=== PATIENT | male | born 1960 | race Caucasian/White ===

== ENCOUNTER 2018-11-11 08:24 | Emergency (ER) | payer BC, SELFPAY ==
--- NOTE | 2018-11-11 10:21 | EDPHYS ---
Physician Documentation [facility] Name: Grupo Mcdonald Jr Age: 58 yrs Sex: Male : 1960 Arrival Date: 11/11/2018 Time: 08:28 Bed 14 Private MD: Bravo Delgado H ED Physician Favian York HPI: 11/11 08:45 This 58 yrs old Male presents to ER via Ambulatory with complaints of ps1 Shoulder Pain. 08:45 patient reportedly fell a week ago and now having pain at the medial aspect of the ps1 right clavicle. Pain rated as moderate. NO remitting factors, none tried. Worse with movement and palpation. No shortness of breath. . Historical: - Allergies: 08:41 Codeine; iw 08:41 Vicodin; iw - Home Meds: 08:41 lisinopril 20 mg Oral tab 1 tab once daily [Active]; losartan 100 mg oral tab once iw daily [Active]; aspirin 325 mg Oral tab 1 tab once daily [Active]; - PMHx: 08:41 Hypertension; iw - PSHx: 08:41 Appendectomy; left knee; iw - Immunization history:: Adult Immunizations not up to date. - Social history:: Smoking status: Patient/guardian denies using tobacco. - Ebola Screening: : Patient negative for fever greater than or equal to 101.5 degrees Fahrenheit, and additional compatible Ebola Virus Disease symptoms Patient denies exposure to infectious person Patient denies travel to an Ebola-affected area in the 21 days before illness onset No symptoms or risks identified at this time. ROS: 08:45 Constitutional: Negative for fever, chills, and weight loss, Eyes: Negative for injury, ps1 pain, redness, and discharge, ENT: Negative for injury, pain, and discharge, Cardiovascular: Negative for chest pain, palpitations, and edema, Respiratory: Negative for shortness of breath, cough, wheezing, and pleuritic chest pain, Abdomen/GI: Negative for abdominal pain, nausea, vomiting, diarrhea, and constipation, Back: Negative for injury and pain, Skin: Negative for injury, rash, and discoloration, Neuro: Negative for headache, weakness, numbness, tingling, and seizure. 08:45 MS/extremity: Positive for decreased range of motion, tenderness, of the right clavicle. Exam: 08:45 Constitutional: This is a well developed, well nourished patient who is awake, alert, ps1 and in no acute distress. Head/Face: Normocephalic, atraumatic. ENT: Nares patent. No nasal discharge, no septal abnormalities noted. Tympanic membranes are normal and external auditory canals are clear. Oropharynx with no redness, swelling, or masses, exudates, or evidence of obstruction, uvula midline. Mucous membranes moist. Cardiovascular: Regular rate and rhythm. No gallops, murmurs, or rubs. Normal PMI, no JVD. No pulse deficits. Respiratory: Lungs have equal breath sounds bilaterally, clear to auscultation and percussion. No rales, rhonchi or wheezes noted. No increased work of breathing, no retractions or nasal flaring. Abdomen/GI: Soft, non-tender, with normal bowel sounds. No distension or tympany. No guarding or rebound. No evidence of tenderness throughout. Skin: Warm, dry with normal turgor. Normal color with no rashes, no lesions, and no evidence of cellulitis. MS/ Extremity: Pulses equal, no cyanosis. Neurovascular intact. Full, normal range of motion. Neuro: Awake and alert, GCS 15, oriented to person, place, time, and situation. Cranial nerves II-XII grossly intact. Sensory grossly intact. 08:45 Chest/axilla: Inspection: normal, Palpation: tenderness, that is moderate, of the right supraclavicular area and right clavicle. Vital Signs: 08:41 BP 197 / 95; Pulse 80; Resp 18 S; Temp 97.6(TE); Pulse Ox 97% on R/A; Weight 190.51 kg; iw Height 6 ft. 1 in. (185.42 cm); Pain 5/10; 08:41 Body Mass Index 55.41 (190.51 kg, 185.42 cm) iw MDM: 09:10 Patient medically screened. ps1 10:22 Data reviewed: vital signs, nurses notes, radiologic studies, plain films, and as a ps1 result, I will discharge patient. 11/11 08:38 Order name: CXR XRAY ps1 11/11 08:38 Order name: Clavicle Right XRAY ps1 Administered Medications: No medications were administered Disposition: 11/11/18 10:20 Discharged to Home. Impression: Right Clavicle Pain. - Condition is Stable. - Discharge Instructions: Shoulder Pain, [id number]. - Prescriptions for Anaprox DS 550 mg Oral Tablet - take 1 tablet by ORAL route every 12 hours As needed; 20 tablet. Robaxin 500 mg Oral Tablet - take 2 tablet by ORAL route every 6 hours As needed; 40 tablet. Medrol (Alex) 4 mg Oral Tablets, Dose Pack - take 1 tablet by ORAL route as directed - follow package instructions; 1 packet. - Medication Reconciliation Form, Thank You Letter, Antibiotic Education, Prescription Opioid Use form. - Follow up: Bravo Delgado DO; When: As needed; Reason: Further diagnostic work-up, Recheck today's complaints, Continuance of care. Follow up: Emergency Department; When: As needed; Reason: Worsening of condition. - Problem is new. - Symptoms are unchanged. Signatures: Dispatcher [employer] EDGhislaine Harrington RN RN iw Carson Talbot RN RN jl7 Favian York MD MD ps1 Corrections: (The following items were deleted from the chart) 10:33 10:20 11/11/2018 10:20 Discharged to Home. Impression: Right Clavicle Pain. Condition jl7 is Stable. Forms are Medication Reconciliation Form, Thank You Letter, Antibiotic Education, Prescription Opioid Use. Follow up: Bravo Delgado; When: As needed; Reason: Further diagnostic work-up, Recheck today's complaints, Continuance of care. Follow up: Emergency Department; When: As needed; Reason: Worsening of condition. Problem is new. Symptoms are unchanged. ps1
--- NOTE | 2018-11-11 10:21 | ER ---
Nurse's Notes [facility] Name: Grupo Mcdonald Jr Age: 58 yrs Sex: Male : 1960 Arrival Date: 11/11/2018 Time: 08:28 Bed 14 Private MD: Bravo Delgado H Diagnosis: Right Clavicle Pain Presentation: 11/11 08:36 Presenting complaint: Patient states: fell about a week ago, caught himself on the iw truck, pain to right collar bone since then, hears a clicking sound and fells like the bone is protruding. Transition of care: patient was not received from another setting of care. Onset of symptoms was November 04, 2018. Risk Assessment: Do you want to hurt yourself or someone else? Patient reports no desire to harm self or others. Initial Sepsis Screen: Does the patient meet any 2 criteria? No. Patient's initial sepsis screen is negative. Does the patient have a suspected source of infection? No. Patient's initial sepsis screen is negative. Care prior to arrival: None. 08:36 Method Of Arrival: Ambulatory iw 08:36 Acuity: MARTY 4 iw Historical: - Allergies: 08:41 Codeine; iw 08:41 Vicodin; iw - Home Meds: 08:41 lisinopril 20 mg Oral tab 1 tab once daily [Active]; losartan 100 mg oral tab once iw daily [Active]; aspirin 325 mg Oral tab 1 tab once daily [Active]; - PMHx: 08:41 Hypertension; iw - PSHx: 08:41 Appendectomy; left knee; iw - Immunization history:: Adult Immunizations not up to date. - Social history:: Smoking status: Patient/guardian denies using tobacco. - Ebola Screening: : Patient negative for fever greater than or equal to 101.5 degrees Fahrenheit, and additional compatible Ebola Virus Disease symptoms Patient denies exposure to infectious person Patient denies travel to an Ebola-affected area in the 21 days before illness onset No symptoms or risks identified at this time. Screenin:42 Abuse screen: Denies threats or abuse. Denies injuries from another. Nutritional jl7 screening: No deficits noted. Tuberculosis screening: No symptoms or risk factors identified. Fall Risk None identified. Assessment: 08:42 General: Appears in no apparent distress. uncomfortable, Behavior is calm, cooperative, jl7 appropriate for age. Pain: Complains of pain in right clavicle Pain currently is 4 out of 10 on a pain scale. Is continuous, Aggravated by increased activity. Neuro: Level of Consciousness is awake, alert, obeys commands, Oriented to person, place, time, situation. Cardiovascular: Patient's skin is warm and dry. Respiratory: Airway is patent Respiratory effort is even, unlabored, Respiratory pattern is regular, symmetrical. Derm: Skin is pink, warm \T\ dry. Musculoskeletal: Range of motion: intact in all extremities, Swelling present in right clavicle. 09:30 Reassessment: Patient appears in no apparent distress at this time. No changes from jl7 previously documented assessment. Patient and/or family updated on plan of care and expected duration. Pain level reassessed. Patient is alert, oriented x 3, equal unlabored respirations, skin warm/dry/pink. Vital Signs: 08:41 BP 197 / 95; Pulse 80; Resp 18 S; Temp 97.6(TE); Pulse Ox 97% on R/A; Weight 190.51 kg; iw Height 6 ft. 1 in. (185.42 cm); Pain 5/10; 08:41 Body Mass Index 55.41 (190.51 kg, 185.42 cm) iw ED Course: 08:28 Patient arrived in ED. mr 08:28 Bravo Delgado DO is Private Physician. mr 08:29 Favian York MD is Attending Physician. ps1 08:31 Carson Talbot, DIANA is Primary Nurse. jl7 08:37 Triage completed. iw 08:41 Arm band placed on. iw 08:42 Patient has correct armband on for positive identification. Bed in low position. Call jl7 light in reach. Side rails up X2. Pulse ox on. NIBP on. 09:30 No provider procedures requiring assistance completed. Patient did not have IV access jl7 during this emergency room visit. 09:36 CXR XRAY In Process Unspecified. EDMS 09:36 Clavicle Right XRAY In Process Unspecified. EDMS 09:37 X-ray completed. Patient tolerated procedure well. sg4 10:19 Bravo Delgado DO is Referral Physician. ps1 Administered Medications: No medications were administered Outcome: 09:30 Discharged to home ambulatory. jl7 09:30 Condition: stable 09:30 Discharge instructions given to patient, Instructed on discharge instructions, follow up and referral plans. medication usage, Demonstrated understanding of instructions, follow-up care, medications, Prescriptions given X 3. 10:20 Discharge ordered by . ps1 10:33 Patient left the ED. jl7 Signatures: Dispatcher [employer] ED LeblancTri Irene, RN RN iw Carson Talbot RN RN jl7 Favian York MD MD ps1 Garcia, Susana sg4
--- NOTE | 2018-11-11 12:11 | RAD REPORT ---
EXAM DESCRIPTION: RAD - Chest Single View - 11/11/2018 9:36 am CLINICAL HISTORY: PAIN Chest pain. COMPARISON: Chest Pa And Lat (2 Views) dated 10/24/2017; Chest Single View dated 10/23/2017; Chest Sin gle View dated 10/15/2017 FINDINGS: Portable technique limits examination quality. The lungs are grossly clear. The heart is upper limit normal size. No displaced fractures. IMPRESSION: No acute intrathoracic process suspected.
--- NOTE | 2018-11-11 12:12 | RAD REPORT ---
EXAM DESCRIPTION: RAD - Clavicle Right - 11/11/2018 9:36 am CLINICAL HISTORY: PAIN History of fall, pain COMPARISON: No comparisons FINDINGS: Severe right glenohumeral arthritic changes are present. Subtle irregularity of the very d istal aspect of the right clavicle could indicate a nondisplaced fracture. Correlation with point ten derness at the region of the AC joint is suggested.
[2018-11-11 12:31] VITALS: BP 197/95; TEMP 97.6; O2SAT 97
== END 2018-11-11 10:33 | disposition home or self-care (01) ==
LOC: ER 08:24
DX: M89.8X8 Other specified disorders of bone, other site (principal); W19.XXXA Unspecified fall, initial encounter; I10 Essential (primary) hypertension; Z79.899 Other long term (current) drug therapy; Z79.82 Long term (current) use of aspirin
CPT/HCPCS: 71045; 99283

== ENCOUNTER 2021-11-13 06:53 | Inpatient (IN) | payer MEDICARE, OTHER, SELFPAY ==
--- OUTSIDE RECORDS SUMMARY | 2021-11-13 06:56 | XMS REPORT | Continuity of Care Document ---
:1960 Author Organization [facility] t Address [address] [place] [address] Care Team Providers Name Role Phone Aleisha Talbot Primary Care Physician Bhanu Abel MD Attending Clinician BHANU ABEL Attending Clinician Unavailable Pob, Lab Main Attending Clinician Unavailable Doctor Unassigned, Name Attending Clinician Unavailable Joseline Stacy MD Attending Clinician Joseline STACY Attending Clinician Unavailable Only, Test Attending Clinician Unavailable Bhanu Abel MD Admitting Clinician BHANU ABEL Admitting Clinician Unavailable Joseline Stacy MD Admitting Clinician Joseline STACY Admitting Clinician Unavailable Payers Payer Name Policy Type Policy Number Effective Date Expiration Date S ource Problems This patient has no known problems. Allergies, Adverse Reactions, Alerts Allergy Allergy Status Severity Reaction(s) Onset Inactive Treating Comm ents Source Name Type Date Date Clinician Hydrocod Propensi Active Unknown - Shakes Uni vers one-Acet ty to See comments 08-16 it y of aminophe adverse 00:00: [place] n reaction 00 Medical s Branch HYDROCOD DRUG Active Unknown-Cmnt Un [place] ONE-ACET 9-27 ity of AMINOPHE 00:00: [place] N 00 Medical Branch Codeine Propensi Active Nausea 2014-11 Univers ty to and/or 0-20 ity of adverse Vomiting 00:00: [place] reaction 00 Medical s to Branch drug CODEINE DRUG Active Med N/V 2014-11 Univers INGREDI 0-20 ity of 00:00: [place] [id number] Medical Branch Social History Social Habit Start Date Stop Date Quantity Comments Source Exposure to Not sure University SARS-CoV-2 [facility] (event) Branch Alcohol intake 2021-11-02 2021-11-02 Current [facility] 00:00:00 00:00:00 non-drinker of [facility] alcohol [place] (finding) Tobacco use and 2015-09-08 2015-09-08 Never used Universit y of exposure 00:00:00 00:00:00 [facility] Sex Assigned At [birth year] Universit y of 00:00:00 00:00:00 [facility] Smoking Status Start Date Stop Date Source Never smoker [facility] Medications Ordered Filled Start Stop Current Ordering Indication Dosage Frequency Signature Comments Components Source Medication Medication Date Date Medication? Clinician (SIG) Name Name water for 2020-11 Yes PRN, Univers irrigation 2-16 Starting ity o f irrigation 15:49: on [facility] solution 00 11/04/21 Medical at 09, [place] Until Discontinu ed, Routine, Intra-op neomycin-po 2020-11 Yes PRN, Univer s lymyxin-dex 2-16 Starting ity of amethasone 15:49: on [facility] (MAXITROL) 00 11/04/21 Medic al 3.[address] [place] [address] mg/g-10,000 Until unit/g-0.1 Discontinu % ed, ophthalmic Routine, ointment Intra-op gentamicin 2020-11 Yes PRN, Univers injection 2-16 Starting ity of 15:49: on [facility] 00 11/04/21 Medical at 09, [place] Until Discontinu ed, AGUILA, Intra-op water for 2020-11- No PRN, Univers irrigation 2-16 -16 Starting ity of irrigation 15:49: 19:36 [facility] :50 11/04/21 Medical at 09, [place] Until Mariajose 11/04/21 at 1336, Routine, Intra-op neomycin-po 2020-11- No PRN, Unive rs lymyxin-dex 2-16 -16 Starting ity of amethasone 15:49: 19:36 [place] (MAXITROL) 00 :50 11/04/21 Medic al 3.5 at 0949, Branch mg/g-10,000 Until [place] unit/g-0.1 11/04/21 % at 1336, ophthalmic Routine, ointment Intra-op gentamicin 2020-11- No PRN, Univer s injection 01-05 Starting ity o f 15:49: 19:36 on Mariajose [place] 00 :50 11/04/21 Medical at 0949, Branch Until [place] 11/04/21 at 1336, AGUILA, Intra-op DUOVISC 2020-11 Yes PRN, Univers (DUOVISC 01-05 Starting ity of VISCO 15:48: on [facility] ELASTIC) 3 00 11/04/21 Medic al %-4 %(0.5 at 0948, Branch mL) 1 % Until (0.55 mL) Discontinu intraocular ed, injection Routine, Intra-op dexamethaso 2020-11 Yes PRN, [facility] ne 01-05 Starting ity of (DECADRON 15:48: on [facility] PHOSPHATE) 00 11/04/21 Medic al injection at 0948, Branch Until Discontinu ed, Routine, Intra-op NaCl 0.9% 2020-11 Yes PRN, Univers (NS) 01-05 Starting ity of injection 15:48: on Mariajose [place] 00 11/04/21 Medical at 0948, Branch Until Discontinu ed, Routine, Intra-op DUOVISC 2020-11- No PRN, Univers (DUOVISC 01-05 Starting ity of VISCO 15:48: 19:36 on [facility] ELASTIC) 3 00 :50 11/04/21 Medic al %-4 %(0.5 at 0948, Branch mL) 1 % Until Mariajose (0.55 mL) 11/04/21 intraocular at 1336, injection Routine, Intra-op dexamethaso 2020-11- No PRN, [facility] ne 01-05 Starting ity of (DECADRON 15:48: 19:36 on [facility] PHOSPHATE) 00 :50 11/04/21 Medic al injection at 0948, Branch Until [place] 11/04/21 at 1336, Routine, Intra-op NaCl 0.9% 2020-11- No PRN, Univers (NS) 211-04 Starting ity of injection 15:48: 19:36 on Mariajose [place] 00 :50 11/04/21 Medical at 0948, Branch Until [facility] 11/04/21 at 1336, Routine, Intra-op ceFAZolin 2020-11 Yes PRN, Univers (ANCEF) 2-16 Starting ity of injection 15:47: on Mariajose [place] 00 11/04/21 Medical at 0947, Branch Until Discontinu ed, AGUILA, Intra-op tetracaine 2020-11 Yes PRN, Univers (PONTOCAINE 2-16 Starting ity of ) 0.5 % 15:47: on Mariajose [place] ophthalmic 00 11/04/21 Medic al drops at 0947, Branch Until Discontinu ed, Routine, Intra-op ceFAZolin 2020-11- No PRN, Univers (ANCEF) 01-05 Starting ity of injection 15:47: 19:36 on [facility] 00 :50 11/04/21 Medical at 0947, Branch Until [facility] 11/04/21 at 1336, AGUILA, Intra-op tetracaine 2020-11- No PRN, Univer s (PONTOCAINE 01-05 Starting ity of ) 0.5 % 15:47: 19:36 on [facility] ophthalmic 00 :50 11/04/21 Medic al drops at 0947, Branch Until [place] 11/04/21 at 1336, Routine, Intra-op eye block 2020-11 Yes PRN, Univers syringe 11 01-05 Starting ity o f mL 15:46: on Maria[place]ose [place] 00 11/04/21 Medical at 0946, Branch Until Discontinu ed, Intra-op eye block 2020-11- No PRN, Univers syringe 11 -11-04 Starting ity of mL 15:46: 19:36 on [facility] 00 :50 11/04/21 Medical at 0946, Branch Until [facility] 11/04/21 at 1336, Intra-op EPINEPHrine 2020-11 Yes PRN, Univer s (PF) 2-16 Starting ity of 1:1,000 (1 15:45: on Mariajose [place] mg/mL) 00 11/04/21 Medical (ADRENALIN at 0945, Branc h (PF)) Until injection Discontinu ed, Routine, Intra-op EPINEPHrine 2020-11- No PRN, Unive rs (PF) 01-05 Starting ity of 1:1,000 (1 15:45: 19:36 on [place] mg/mL) 00 :50 11/04/21 Medical (ADRENALIN at 0945, Branc h (PF)) Until [place] injection 11/04/21 at 1336, Routine, Intra-op balanced 2020-11 Yes PRN, Univers salt soln 01-05 Starting ity of no.2 irrig. 15:44: on [place] (BSS) 00 11/04/21 Medical ophthalmic at 0944, Branc h solution Until Discontinu ed, Routine, Intra-op balanced 2020-11- No PRN, Univers salt soln 01-05 Starting ity o f no.2 irrig. 15:44: 19:36 on Mariajose [place] (BSS) 00 :50 11/04/21 Medical ophthalmic at 0944, Branc h solution Until [place] 11/04/21 at 1336, Routine, Intra-op cyclopent 2020-11- No .5mL 0.5 mL, Univ ers 1%-tropic 01-05 Right Eye, ity of 1%-phenyl 15:00: 15:01 ONCE, 1 [place] 2.5%-ketor 00 :00 dose, On Medic al 0.5% [place] Branch (MYDRIATIC 11/04/21 #5) at 0900, ophthalmic Routine, solution DSU Pre-op syringe 0.5 mL lactated 2020-11- No 1000mL at 42 Unive rs ringers IV 01-05 mL/hr, ity of infusion 15:00: 15:01 1,000 mL, [place] 1,000 mL 00 :00 IV Medical Infusion, Branch ONCE, 1 dose, On Mariajose 11/04/21 at 0900, Routine, DSU Pre-op cyclopent 2020-11- No .5mL 0.5 mL, Univ ers 1%-tropic 2-16 12-16 Right Eye, ity of 1%-phenyl 15:00: 15:01 ONCE, 1 [place] 2.5%-ketor 00 :00 dose, On Medic al 0.5% [place] Branch (MYDRIATIC 11/04/21 #5) at 0900, ophthalmic Routine, solution DSU Pre-op syringe 0.5 mL lactated 2020-11- No 1000mL at 42 Unive rs ringers IV 2-16 12-16 mL/hr, ity of infusion 15:00: 15:01 1,000 mL, [place] 1,000 mL 00 :00 IV Medical Infusion, Branch ONCE, 1 dose, On Mariajose 11/04/21 at 0900, Routine, DSU Pre-op aspirin 81 2020-11 Yes 81mg Take 81 mg U nivers mg EC 2-16 by mouth ity of tablet 11:31: daily. [address] lisinopril 2020-11 Yes 20mg Take 20 mg U nivers (PRINIVIL,Z 2-16 by mouth 2 it y of ESTRIL) 20 11:31: (two) [place] mg tablet 49 times Medical daily. Branch verapamil 2020-11 Yes 120mg Take 120 Uni vers (ISOPTIN) 2-16 mg by ity of 120 mg 11:31: mouth 2 [place] tablet 49 (two) Medical times [place] daily. ALBUTEROL 2020-11 Yes Inhale. Unive rs INHALE 2-16 ity of 11:31: [address] aspirin 81 2020-11 Yes 81mg Take 81 mg U nivers mg EC 2-16 by mouth ity of tablet 11:31: daily. [address] lisinopril 2020-11 Yes 20mg Take 20 mg U nivers (PRINIVIL,Z 2-16 by mouth 2 it y of ESTRIL) 20 11:31: (two) [place] mg tablet 49 times Medical daily. Branch verapamil 2020-11 Yes 120mg Take 120 Uni vers (ISOPTIN) 2-16 mg by ity of 120 mg 11:31: mouth 2 [place] tablet 49 (two) Medical times [place] daily. ALBUTEROL 2020-11 Yes Inhale. Unive rs INHALE 2-16 ity of 11:31: [address] simethicone Yes PRN, Univer s (GAS RELIEF 9- Starting ity of (SIMETHICON 14:10: on Mon [place] E)) 40 00 08/18/21 at Medical mg/0.6 mL 0910, Branch drops Until Discontinu ed, Routine, Intra-op simethicone 2020- No [facility], [facility] ([facility] 08-18 Starting ity of (SIMETHICON 14:10: 17:12 on Mon [place] E)) 40 00 :34 08/18/21 at Medical mg/0.6 mL 0910, Branch drops Until Mon08/18/21 at 1212, Routine, Intra-op lactated 2020- No 1000mL at 42 [facility] rs ringers IV 08-18 mL/hr, ity of infusion 13:15: 13:02 1,000 mL, [place] 1,000 mL 00 :00 IV Medical Infusion, Branch ONCE, 1 dose, On Mon08/18/21 at 0815, Routine, DSU Pre-op lactated 2020- No 1000mL at 42 [facility] rs ringers IV 08-18 mL/hr, ity of infusion 13:15: 13:02 1,000 mL, [place] 1,000 mL 00 :00 IV Medical Infusion, Branch ONCE, 1 dose, On Mon08/18/21 at 0815, Routine, DSU Pre-op aspirin 81 0 Yes 81mg Take 81 mg U nivers mg EC 08-18 by mouth ity of tablet 10:12: daily. [address] lisinopril Yes 20mg Take 20 mg U nivers (PRINIVIL,Z 08-18 by mouth 2 it y of ESTRIL) 20 10:12: (two) [place] mg tablet 34 times Medical daily. Branch verapamil 0 Yes 120mg Take 120 Uni vers (ISOPTIN) 9-29 mg by ity of 120 mg 10:12: mouth 2 [place] tablet 34 (two) Medical times Branch daily. aspirin 81 0 Yes 81mg Take 81 mg U nivers mg EC - by mouth ity of tablet 10:12: daily. [address] lisinopril Yes 20mg Take 20 mg U nivers (PRINIVIL,Z - by mouth 2 it y of ESTRIL) 20 10:12: (two) [place] mg tablet 34 times Medical daily. Branch verapamil Yes 120mg Take 120 Uni vers (ISOPTIN) 9-29 mg by ity of 120 mg 10:12: mouth 2 [place] tablet 34 (two) Medical times Branch daily. aspirin 81 Yes 81mg Take 81 mg U nivers mg EC 9-29 by mouth ity of tablet 10:12: daily. [address] lisinopril Yes 20mg Take 20 mg U nivers (PRINIVIL,Z 9-29 by mouth 2 it y of ESTRIL) 20 10:12: (two) [place] mg tablet 34 times Medical daily. Branch verapamil Yes 120mg Take 120 Uni vers (ISOPTIN) 9-29 mg by ity of 120 mg 10:12: mouth 2 [place] tablet 34 (two) Medical times Branch daily. aspirin 81 Yes 81mg Take 81 mg U nivers mg EC 9-29 by mouth ity of tablet 10:12: daily. [address] lisinopril Yes 20mg Take 20 mg U nivers (PRINIVIL,Z 9-29 by mouth 2 it y of ESTRIL) 20 10:12: (two) [place] mg tablet 34 times Medical daily. Branch verapamil Yes 120mg Take 120 Uni vers (ISOPTIN) 9-29 mg by ity of 120 mg 10:12: mouth 2 [place] tablet 34 (two) Medical times Branch daily. aspirin 81 2014-11 Yes 81mg Take 81 mg U nivers mg EC 0-22 by mouth ity of tablet 10:44: daily. [address] lisinopril 2014-11 Yes 20mg Take 20 mg U nivers (PRINIVIL,Z 0-22 by mouth 2 it y of ESTRIL) 20 10:44: (two) [place] mg tablet 23 times Medical daily. Branch verapamil 2014-11 Yes 120mg Take 120 Uni vers (ISOPTIN) 0-22 mg by ity of 120 mg 10:44: mouth 2 [place] tablet 23 (two) Medical times Branch daily. aspirin 81 2014-11 Yes 81mg Take 81 mg U nivers mg EC 0-22 by mouth ity of tablet 10:44: daily. [address] lisinopril 2014-11 Yes 20mg Take 20 mg U nivers (PRINIVIL,Z 0-22 by mouth 2 it y of ESTRIL) 20 10:44: (two) [place] mg tablet 23 times Medical daily. Branch verapamil 2014-11 Yes 120mg Take 120 Uni vers (ISOPTIN) 0-22 mg by ity of 120 mg 10:44: mouth 2 [place] tablet 23 (two) Medical times [place] daily. Vital Signs Vital Name Observation Time Observation Value Comments Source Systolic blood 2021-11-04 16:37:00 146 mm[Hg] Univer sity of pressure [facility] Diastolic blood 2021-11-04 16:37:00 69 mm[Hg] Unive rsity of [facility] Oxygen saturation in 2021-11-04 16:37:00 99 /min University of Arterial blood by [facility] Pulse oximetry Branch Heart rate 2021-11-04 16:30:00 71 /min [facility] 2021-11-04 16:30:00 24 /min [facility] Body temperature 2021-11-04 16:11:00 36.89 [place] Body height 2021-10-26 14:41:00 182.9 cm Universi [facility] Body weight 2021-10-26 14:41:00 204.1 [facility] BMI 2021-10-26 14:41:00 61.01 kg/m2 [facility] Systolic blood 2021-11-04 16:37:00 146 mm[Hg] Univer sity of [facility] Diastolic blood 2021-11-04 16:37:00 69 mm[Hg] Unive rsity of [facility] Oxygen saturation in 2021-11-04 16:37:00 99 /min University of Arterial blood by [facility] Pulse oximetry Branch Heart rate 2021-11-04 16:30:00 71 /min Universi ty [facility] Respiratory rate 2021-11-04 16:30:00 24 /min [facility] Body temperature 2021-11-04 16:11:00 36.89 [facility] Body height 2021-10-26 14:41:00 182.9 cm Universi [facility] Body weight 2021-10-26 14:41:00 204.1 kg Universi ty of [place] [facility] BMI 2021-10-26 14:41:00 61.01 kg/m2 Universi ty of [place] [facility] Systolic blood 2021-08-18 15:00:00 158 mm[Hg] Univer sity of pressure [place] [facility] Diastolic blood 2021-08-18 15:00:00 90 mm[Hg] Unive rsity of pressure [place] [facility] Heart rate 2021-08-18 15:00:00 75 /min Universi ty of [place] [facility] Respiratory rate 2021-08-18 15:00:00 20 /min Univ ersity of [place] [facility] Oxygen saturation in 2021-08-18 15:00:00 100 /min University of Arterial blood by [place] [employer] Pulse oximetry Branch Body temperature 2021-08-18 14:35:00 37.33 [place] Univ ersity of [place] [facility] Body height 2021-08-16 14:15:00 182.9 cm Universi ty of [place] [facility] Body weight 2021-08-16 14:15:00 204.119 kg Universi ty of [place] [facility] BMI 2021-08-16 14:15:00 61.03 kg/m2 Universi ty of [place] [facility] Systolic blood 2021-08-18 15:00:00 158 mm[Hg] Univer sity of pressure [place] [facility] Diastolic blood 2021-08-18 15:00:00 90 mm[Hg] Unive rsity of pressure [place] [facility] Heart rate 2021-08-18 15:00:00 75 /min Universi ty of [place] [facility] Respiratory rate 2021-08-18 15:00:00 20 /min Univ ersity of [place] [facility] Oxygen saturation in 2021-08-18 15:00:00 100 /min University of Arterial blood by [place] [employer] Pulse oximetry Branch Body temperature 2021-08-18 14:35:00 37.33 [place] Univ ersity of [place] [facility] Body height 2021-08-16 14:15:00 182.9 cm Universi ty of [place] [facility] Body weight 2021-08-16 14:15:00 204.119 kg Universi ty [facility] [place] [facility] BMI 2021-08-16 14:15:00 61.03 kg/m2 Universi ty of [place] [facility] Procedures Procedure Date / Time Performing Source Performed Clinician PHACOEMULSIFICATION OF 2021-11-04 Christal Abel [facility] CATARACT WITH INTRAOCULAR 15:35:00 Bhanu Vale LENS IMPLANT ASSIGNMENT OF BENEFITS 2021-10-29 Doctor Unassigned, [facility] 16:45:12 [place] [facility] COLONOSCOPY 2021-08-18 [facility] 13:44:00 C Medical Branch COLONOSCOPY (ENDO) 2021-08-18 Quirino Talbot [facility] 13:37:11 Medical Branch COLONOSCOPY (ENDO) 2021-08-18 Quirino Talbot [facility] 13:37:11 Medical Branch COVID-19 (ID NOW RAPID 2021-08-16 [facility] TESTING) 15:46:00 C Medical Branch ASSIGNMENT OF BENEFITS 2021-08-16 Doctor Unassigned, [facility] 15:36:54 [place] [facility] EXTERNAL PROVIDER RECORDS 2021-07-21 Doctor Unassigned, [facility] 05:01:00 [place] [facility] EXTERNAL PROVIDER RECORDS 2021-07-21 Doctor Unassigned, [facility] 05:01:00 [place] [facility] Encounters Start End Encounter Admission Attending Care Care Encounter Source Date/Time Date/Time Type Type Clinicians Facility Department ID 2021-11-04 2021-11-04 Surgery [facility] [id number] Univers 10:24:00 11:00:00 Christal KUHN [id number] i ty of [place]u [id number] [id number] [facility] 020 Branch 2021-11-04 2021-11-04 [facility] [id number] Univers 08:47:00 10:45:00 Encounter Christal KUHN [id number] ity of [place]hanu [id number] [id number] [facility] 071 Branch 2021-11-04 2021-11-04 Outpatient R [facility] OPH [id number] Univers 08:47:00 10:45:00 CHRISTAL pizarro [facility] 2021-11-02 2021-11-02 Outpatient R [facility] [id number] Univers 08:00:00 08:00:00 [id number] ity [facility] 2021-11-02 2021-11-02 Outpatient R JOSIANE [facility] [id number] Univers 08:00:00 08:00:00 CHRISTAL pizarro [facility] 2021-10-29 2021-10-29 Cylinder Checker Tabby, Adc Lab Main [facility] 1.2.8 [id number] Univers 10:50:56 11:05:56 Visit Josiane Christal KUHN 350.1.1 3.10 ity of [id number] PROFESSIO [id number] Al dic[address] 2021-10-29 2021-10-29 Outpatient R [facility] [id number] Univers 11:00:00 11:00:00 [id number] ity [facility] 2021-10-29 2021-10-29 Outpatient R JOSIANE [facility] [id number] Univers 11:00:00 11:00:00 CHRISTAL michelle [facility] 2021-10-29 2021-10-29 Orders Doctor PRAVEEN [id number] Univers 00:00:00 00:00:00 Only Unassigned, ADRIENNE [id number] ity of [place] [facility] [id number] [place] [id number] [address] 2021-10-28 2021-10-28 Outpatient R [facility] [id number] Univers 15:45:00 15:45:00 [id number] ity [facility] 2021-10-28 2021-10-28 [facility] [id number] Univers 15:45:00 15:45:00 CHRISTAL pizarro [facility] 2021-08-18 2021-08-18 [facility] [id number] Univers 07:25:00 10:08:00 Aman [place] [id number] ity of [place] [id number] [place] Surgical [id number] [facility] 071 Branch 2021-08-18 2021-08-18 Outpatient R [facility] [id number] Univers 07:25:00 10:08:00 AMAN Espinoza juarez o f [facility] 2021-08-18 2021-08-18 Surgery [facility] [id number] Univers 09:24:00 10:01:00 ulices Aman Kuhn [id number] ity [place] [id number] Surgical [id number] [facility] 020 Branch 2021-08-16 2021-08-16 Outpatient R [facility] [id number] Univers 11:30:00 11:30:00 [id number] ity of [facility] 2021-08-16 2021-08-[address] [facility] [id number] Univers 11:30:00 11:30:00 UlicesMANDOKenya pizarro o f [facility] 2021-08-16 2021-08-16 Laboratory Only, Adc Test [facility] 1.2.840. [id number] Univers 10:43:57 10:58:57 Only Aman Stacy 350.1.1 3.10 ity [place] [id number] [id number] [facility] 353 Branch 2021-08-16 2021-08-16 Orders Doctor PRAVEEN [id number] Univers 00:00:00 00:00:00 Only Unassigned, ADRIENNE [id number] ity of [place] [facility] [id number] [place] [id number] [facility] 009 Branch Results This patient has no known results.
[2021-11-13] MEDS ORDERED: NA CHLORIDE 0.9% 1,000 ML ONE (08:14)
[2021-11-13] MEDS ORDERED: KETOROLAC 30 MG/ML INJ ONE ×2 (08:14→12:46)
[2021-11-13] MEDS ORDERED: CLINDAMYCIN 600MG/D5W 600 MG/50 ML BAG IV ONE (08:14)
[2021-11-13 08:25] LABS: Absolute Lymphocytes (CBC) 0.7 K/uL (0.7-4.9); Hematocrit 43.1 % (39.6-49.0); Lymphocytes % 6.1 % (15.3-44.8); MPV 8.3 fL (7.6-11.3); RBC Red Blood Cell Count 4.85 M/uL (4.33-5.43)
[2021-11-13 08:28] LABS: Protime INR 1.03
[2021-11-13 08:44] LABS: Albumin 3.4 g/dL (3.4-5.0); Bilirubin Direct 0.1 mg/dL (0-0.2); Bilirubin Total 0.4 mg/dL (0.2-1.0); Potassium 3.9 mmol/L (3.5-5.1); Protein, Total 7.8 g/dL (6.4-8.2)
[2021-11-13 08:45] LABS: Amylase 30 U/L (25-115); C-Reactive Protein 4.51 mg/L (<3.00); Creatine Phosphokinase 179 U/L (39-308); Troponin (Emerg Dept Use Only) < 0.02 ng/mL (0.0-0.045)
[2021-11-13 08:50] LABS: CKMB Creatine Kinase MB < 1.0 ng/mL (1.0-3.6)
[2021-11-13 09:24] LABS: Urine Blood Negative (Negative); Urine Glucose Negative (Negative); Urine Protein Negative (Negative); Urine Specific Gravity >=1.030 (1.005-1.030); Urine pH 5.5 (5.0-7.0)
--- NOTE | 2021-11-13 09:48 | EDPHYS ---
Physician Documentation [facility] Name: Grupo Mcdonald Jr Age: 61 yrs Sex: Male : 1960 Arrival Date: 11/13/2021 Time: 06:58 Bed 8 Private MD: ED Physician Issac Rhodes HPI: 11/13 09:44 This 61 yrs old Male presents to ER via Wheelchair with complaints of Abdominal ma2 Swelling. 09:44 The patient presents with cellulitis of the abdomen. Associated signs and symptoms: ma2 Pertinent negatives: foreign body sensation, headache, shortness of breath. Severity of symptoms: At their worst the symptoms were severe, in the emergency department the symptoms are unchanged. The patient has not experienced similar symptoms in the past, Patient here with left lower abdominal wall redness and erythema, no abdominal tenderness, patient also fever shortness of breath, feels sick. He had left leg cellulitis in the past that resulted in sepsis.. Historical: - Allergies: 07:19 Codeine; iw 07:19 Vicodin; iw - Home Meds: 10:33 aspirin 325 mg Oral tab 1 tab once daily [Active]; lisinopril 20 mg Oral tab 1 tab once eo2 daily [Active]; lisinopril Oral [Active]; losartan 100 mg Oral tab once daily [Active]; losartan Oral [Active]; Verapamil Oral [Active]; - PMHx: 07:19 Hypertension; iw - Immunization history:: Client reports having NOT received the Covid vaccine. - Social history:: Smoking status: Patient denies any tobacco usage or history of. Patient/guardian denies using alcohol, street drugs, The patient lives with family. - Family history:: not pertinent. ROS: 09:44 Constitutional: Negative for fever, chills, and weight loss. ma2 09:44 All other systems are negative. Exam: 09:44 Constitutional: This is a well developed, well nourished patient who is awake, alert, ma2 and in no acute distress. Chest/axilla: Normal chest wall appearance and motion. Nontender with no deformity. No lesions are appreciated. Cardiovascular: Regular rate and rhythm with a normal S1 and S2. No gallops, murmurs, or rubs. Normal PMI, no JVD. No pulse deficits. Respiratory: Lungs have equal breath sounds bilaterally, clear to auscultation and percussion. No rales, rhonchi or wheezes noted. No increased work of breathing, no retractions or nasal flaring. Abdomen/GI: Large area of abdominal wall cellulitis in the left lower abdomen, measures 20 x 30 inches, patient is morbidly obese, however no abdominal tenderness, abdomen is soft, non-tender, with normal bowel sounds. No distension or tympany. No guarding or rebound. No evidence of tenderness throughout. Back: No spinal tenderness. No costovertebral tenderness. Full range of motion. Skin: Warm, dry with normal turgor. Normal color with no rashes, no lesions, and no evidence of cellulitis. Vital Signs: 07:17 BP 150 / 82; Pulse 76; Resp 16; Temp 97.6; Weight 204.12 kg; Height 6 ft. 0 in. (182.88 iw cm); 08:25 BP 172 / 78; Pulse 82; Resp 22; Temp 99.8(O); Pulse Ox 98% ; mh5 08:30 BP 166 / 45; Pulse 82; Resp 19; Pulse Ox 98% ; Pain 6/10; eo2 09:00 BP 143 / 60; Pulse 80; Resp 22; Pulse Ox 96% ; Pain 3/10; eo2 09:00 Pain 3/10; eo2 10:24 BP 119 / 92; Pulse 97; Resp 20; Pulse Ox 97% ; Pain 5/10; eo2 11:00 BP 107 / 76; Pulse 76; Resp 19; Pulse Ox 97% ; Pain 3/10; eo2 12:00 BP 112 / 66; Pulse 76; Resp 17; Pulse Ox 95% ; Pain 6/10; eo2 13:00 BP 146 / 75; Pulse 79; Resp 20; Pulse Ox 96% ; Pain 3/10; eo2 13:53 Weight 204.12 kg; Height 6 ft. 0 in. (182.88 cm); eo2 13:53 Body Mass Index 61.03 (204.12 kg, 182.88 cm) eo2 MDM: 07:42 Patient medically screened. ma2 09:44 Differential diagnosis: allergic reaction, cellulitis, insect bite, No abscess. Data ma2 reviewed: vital signs, nurses notes, detention records. Counseling: I had a detailed discussion with the patient and/or guardian regarding: the historical points, exam findings, and any diagnostic results supporting the discharge/admit diagnosis, the presence of at least one elevated blood pressure reading (>120/80) during this emergency department visit, the need for outpatient follow up. Response to treatment: the patient's symptoms have markedly improved after treatment. 12:37 ED course: Unable to scan abdomen due to patient is morbidly obese beyond weight limit ma2 of the scanner. We will do an ultrasound abdomen.. 11/13 07:09 Order name: Basic Metabolic Panel mn2 11/13 07:09 Order name: CBC with Diff mn2 11/13 07:09 Order name: Hepatic Function; Complete Time: 09:20 ma2 11/13 07:09 Order name: Lipase; Complete Time: 09:20 mn2 11/13 07:09 Order name: Basic Metabolic Panel; Complete Time: 09:20 EDMS 11/13 07:09 Order name: CBC with Automated Diff; Complete Time: 12:35 EDMS 11/13 07:57 Order name: Amylase, Serum; Complete Time: 09:20 ma2 11/13 07:57 Order name: Blood Culture Adult (2) 11/13 07:57 Order name: C-Reactive Protein; Complete Time: 09:20 ma2 11/13 07:57 Order name: CPK; Complete Time: 09:20 mn2 11/13 07:57 Order name: Ckmb; Complete Time: 09:20 ma2 11/13 07:57 Order name: Lactate; Complete Time: 09:20 mn2 11/13 07:57 Order name: Procalcitonin; Complete Time: 09:20 mn2 11/13 07:57 Order name: Protime (+inr); Complete Time: 09:20 mn2 11/13 07:09 Order name: IV Saline Lock; Complete Time: 08:01 2 11/13 07:09 Order name: Labs collected and sent; Complete Time: 08:01 mn2 11/13 07:09 Order name: Urine Dipstick-Ancillary (obtain specimen); Complete Time: 09:24 ma2 11/13 07:57 Order name: Ptt, Activated; Complete Time: 09:20 mn2 11/13 07:57 Order name: Troponin (emerg Dept Use Only); Complete Time: 09:20 ma2 11/13 07:57 Order name: Urine Microscopic Only; Complete Time: 10:44 ma2 11/13 07:57 Order name: SARS-COV-2 RT PCR (Document "Date of Onset" if Symptomatic); Complete Time: ma2 09:20 11/13 09:24 Order name: Urine Dipstick-Ancillary; Complete Time: 09:37 EDMS 11/13 11:43 Order name: CBC Smear Scan; Complete Time: 12:35 EDMS 11/13 12:35 Order name: US Abdomen Complete ma2 11/13 07:57 Order name: Accucheck; Complete Time: 08:00 ma2 11/13 07:57 Order name: Cardiac monitoring; Complete Time: 08:00 ma2 11/13 07:57 Order name: EKG - Nurse/Tech; Complete Time: 08:00 ma2 11/13 07:57 Order name: IV Saline Lock - Large Bore; Complete Time: 08:00 ma2 11/13 07:57 Order name: O2 Per Protocol; Complete Time: 08:00 ma2 11/13 07:57 Order name: O2 Sat Monitoring; Complete Time: 08:00 ma2 Administered Medications: 08:25 Drug: NS 0.9% 1000 ml Route: IV; Rate: 1 bolus; Site: right antecubital; eo2 09:25 Follow up: Response: No adverse reaction; IV Status: Completed infusion; IV Intake: eo2 1000ml 08:26 Drug: Ketorolac 30 mg Route: IVP; Site: right antecubital; eo2 09:00 Follow up: Pain 3/10 Adult; Response: No adverse reaction; Pain is decreased eo2 09:03 Drug: Clindamycin 600 mg Route: IVPB; Infused Over: 30 mins; Site: right antecubital; eo2 09:33 Follow up: IV Status: Completed infusion; IV Intake: 50ml eo2 10:30 Drug: Zofran (Ondansetron) 4 mg Route: IVP; Site: right antecubital; eo2 11:30 Follow up: Response: No adverse reaction; Nausea is decreased eo2 12:47 Drug: Ketorolac 30 mg Route: IVP; Site: right antecubital; eo2 13:45 Follow up: Response: No adverse reaction; Pain is decreased eo2 Disposition Summary: 11/13/21 09:48 Hospitalization Ordered Hospitalization Status: Inpatient Admission ma2 Provider: Petey Fritz ma2 Location: Telemetry/MedSurg (Inpatient) ma2 Condition: Stable ma2 Problem: new ma2 Symptoms: are unchanged ma2 Bed/Room Type: Standard mn2 Room Assignment: [facility](11/13/21 14:50) bd Diagnosis - Cellulitis of abdominal wall ma2 Forms: - Medication Reconciliation Form ma2 - SBAR form ma2 Signatures: Dispatcher [employer] EDElen Pollack Irene, RN RN iw Issac Rhodes MD MD ma2 Rae John RN RN eo2 Corrections: (The following items were deleted from the chart) 10:45 09:48 Severe sepsis without septic shock ma2 ma2 14:50 09:48 ma2 bd
--- NOTE | 2021-11-13 09:48 | ER ---
Nurse's Notes [facility] Name: Grupo Mcdonald Jr Age: 61 yrs Sex: Male : 1960 Arrival Date: 11/13/2021 Time: 06:58 Bed 8 Private MD: Diagnosis: Cellulitis of abdominal wall Presentation: 11/13 07:17 Chief complaint: Patient states: woke up this morning and hurting, has bright redness iw and tenderness to LLQ, gets cellulitis on his legs and looks similar. Coronavirus screen: At this time, the client does not indicate any symptoms associated with coronavirus-19. Ebola Screen: Patient negative for fever greater than or equal to 101.5 degrees Fahrenheit, and additional compatible Ebola Virus Disease symptoms Patient denies exposure to infectious person. Patient denies travel to an Ebola-affected area in the 21 days before illness onset. No symptoms or risks identified at this time. Initial Sepsis Screen: Does the patient meet any 2 criteria? No. Patient's initial sepsis screen is negative. Does the patient have a suspected source of infection? No. Patient's initial sepsis screen is negative. Risk Assessment: Do you want to hurt yourself or someone else? Patient reports no desire to harm self or others. Onset of symptoms was November 13, 2021. 07:17 Method Of Arrival: Wheelchair iw 07:17 Acuity: MARTY 3 iw Historical: - Allergies: 07:19 Codeine; iw 07:19 Vicodin; iw - Home Meds: 10:33 aspirin 325 mg Oral tab 1 tab once daily [Active]; lisinopril 20 mg Oral tab 1 tab once eo2 daily [Active]; lisinopril Oral [Active]; losartan 100 mg Oral tab once daily [Active]; losartan Oral [Active]; Verapamil Oral [Active]; - PMHx: 07:19 Hypertension; iw - Immunization history:: Client reports having NOT received the Covid vaccine. - Social history:: Smoking status: Patient denies any tobacco usage or history of. Patient/guardian denies using alcohol, street drugs, The patient lives with family. - Family history:: not pertinent. Screenin:20 Abuse screen: Denies threats or abuse. Nutritional screening: No deficits noted. eo2 Tuberculosis screening: No symptoms or risk factors identified. Fall Risk No fall in past 12 months (0 pts). Ambulatory Aid- Crutches/Cane/Walker (15 pts). Assessment: 08:20 General: Appears in no apparent distress. obese, Behavior is calm, cooperative. Pain: eo2 Complains of pain in left lower abdomen. Neuro: No deficits noted. Level of Consciousness is awake, alert, obeys commands, Oriented to person, place, time, situation, Denies weakness dizziness, headache. Cardiovascular: No deficits noted. Denies chest pain. Respiratory: Reports shortness of breath on exertion Airway is patent Respiratory effort is even, Respiratory pattern is regular, symmetrical, Breath sounds are clear bilaterally. GI: Abdomen is obese, Bowel sounds present X 4 quads. Abdomen is tender to palpation in left lower quadrant Reports left lower abdomen pain, swelling, and redness onset yesterday, described as "burning/stinging". Pt reports recent colonoscopy with polyps removed, reports hx diverticulosis. Patient currently denies diarrhea, nausea, vomiting. 08:20 GI:. : Denies burning with urination. Derm: Skin temperature is warm. eo2 Musculoskeletal: Swelling present in b/l LE, hx Lymphedema. 10:24 Reassessment: Pt reporting nausea, Dr. Rhodes made aware, received order for zofran eo2 4mg IVP once. Pt reports worsening pain but denies need for pain medication at this time. 12:47 Reassessment: Per Dr. Rhodes, pt may eat and drink, pt requesting water at this time. eo2 Pt updated on plan, pending US abd as CT could not be completed due to pt's weight. Vital Signs: 07:17 BP 150 / 82; Pulse 76; Resp 16; Temp 97.6; Weight 204.12 kg; Height 6 ft. 0 in. (182.88 iw cm); 08:25 BP 172 / 78; Pulse 82; Resp 22; Temp 99.8(O); Pulse Ox 98% ; mh5 08:30 BP 166 / 45; Pulse 82; Resp 19; Pulse Ox 98% ; Pain 6/10; eo2 09:00 BP 143 / 60; Pulse 80; Resp 22; Pulse Ox 96% ; Pain 3/10; eo2 09:00 Pain 3/10; eo2 10:24 BP 119 / 92; Pulse 97; Resp 20; Pulse Ox 97% ; Pain 5/10; eo2 11:00 BP 107 / 76; Pulse 76; Resp 19; Pulse Ox 97% ; Pain 3/10; eo2 12:00 BP 112 / 66; Pulse 76; Resp 17; Pulse Ox 95% ; Pain 6/10; eo2 13:00 BP 146 / 75; Pulse 79; Resp 20; Pulse Ox 96% ; Pain 3/10; eo2 13:53 Weight 204.12 kg; Height 6 ft. 0 in. (182.88 cm); eo2 13:53 Body Mass Index 61.03 (204.12 kg, 182.88 cm) eo2 Vitals: 08:30 Cardiac Rhythm Assessment Regular Sinus rhythm. eo2 ED Course: 06:58 Patient arrived in ED. bp1 07:08 Issac Rhodes MD is Attending Physician. ma2 07:19 Triage completed. iw 07:19 Arm band placed on. iw 07:39 Rae John, RN is Primary Nurse. eo2 08:00 SARS-COV-2 RT PCR (Document "Date of Onset" if Symptomatic) Sent. 5 08:00 Amylase, Serum Sent. 5 08:00 Blood Culture Adult (2) Sent. 5 08:00 C-Reactive Protein Sent. 5 08:00 CPK Sent. 5 08:00 Ckmb Sent. 5 08:00 Initial lab(s) drawn, by pa, sent to lab. First set of blood cultures drawn EKG done, 5 by ED staff, reviewed by Issac Rhodes MD COVID swab sent to lab. Inserted saline lock: 20 gauge in right antecubital area, using aseptic technique. Blood collected. 08:01 Lactate Sent. 5 08:01 Procalcitonin Sent. 5 08:01 Protime (+inr) Sent. 5 08:01 Ptt, Activated Sent. 5 08:01 Troponin (emerg Dept Use Only) Sent. 5 08:01 CBC with Automated Diff Sent. 5 08:01 Basic Metabolic Panel Sent. 5 08:01 Basic Metabolic Panel Sent. 5 08:01 CBC with Diff Sent. 5 08:01 Hepatic Function Sent. 5 08:01 Lipase Sent. 5 08:03 Patient has correct armband on for positive identification. Bed in low position. Call [facility] light in reach. Side rails up X2. Adult w/ patient. Warm blanket given. radiation monitor on. Pulse ox on. NIBP on. 08:20 Door closed. Noise minimized. Warm blanket given. eo2 09:23 Urine Microscopic Only Sent. mh5 09:24 Urine collected: clean catch specimen, clear. 5 09:48 Petey Fritz DO is Hospitalizing Provider. ma2 10:34 No provider procedures requiring assistance completed. eo2 Administered Medications: 08:25 Drug: NS 0.9% 1000 ml Route: IV; Rate: 1 bolus; Site: right antecubital; eo2 09:25 Follow up: Response: No adverse reaction; IV Status: Completed infusion; IV Intake: eo2 1000ml 08:26 Drug: Ketorolac 30 mg Route: IVP; Site: right antecubital; eo2 09:00 Follow up: Pain 10 Adult; Response: No adverse reaction; Pain is decreased eo2 09:03 Drug: Clindamycin 600 mg Route: IVPB; Infused Over: 30 mins; Site: right antecubital; eo2 09:33 Follow up: IV Status: Completed infusion; IV Intake: 50ml eo2 10:30 Drug: Zofran (Ondansetron) 4 mg Route: IVP; Site: right antecubital; eo2 11:30 Follow up: Response: No adverse reaction; Nausea is decreased eo2 12:47 Drug: Ketorolac 30 mg Route: IVP; Site: right antecubital; eo2 13:45 Follow up: Response: No adverse reaction; Pain is decreased eo2 Intake: 09:25 IV: 1000ml; Total: 1000ml. eo2 09:33 IV: 50ml; Total: 1050ml. eo2 14:00 urine color is orange, change from previous voids eo2 Output: 12:52 Urine: 125ml (Voided); Total: 125ml. eo2 14:00 Urine: 125ml (Voided); Total: 250ml. eo2 14:00 urine color is orange, change from previous voids eo2 Outcome: 09:48 Decision to Hospitalize by Provider. ma2 18:29 Patient left the ED. iw Signatures: Ghislaine Stock RN RN iw Martinez, Maria [facility] Issac Rhodes MD MD de2 Karlee Maciel Eunice, RN RN eo2 Corrections: (The following items were deleted from the chart) 09:32 08:20 GI: Abdomen is obese, Bowel sounds present X 4 quads. Abdomen is tender to eo2 palpation in left lower quadrant Reports left lower abd swelling, redness and pain onset 4am today, reports hx of diverticulosis states he had a recent colonoscopy with polyps removed. Left lower abdomen appears cellulitic, red, and worm, no open wounds noted. Patient currently denies diarrhea, nausea, vomiting, eo2
[2021-11-13 09:53] LABS: Urine Amorphous Sediment 2+ /HPF (NONE SEEN); Urine Bacteria <20 /HPF (NONE SEEN); Urine Mucus 2+ /HPF (NONE SEEN); Urine RBC <5 /HPF (NONE SEEN)
[2021-11-13] MEDS ORDERED: ONDANSETRON 4 MG/2 ML VIAL ONE (10:28)
--- NOTE | 2021-11-13 11:04 | P.HP ---
Certification for Inpatient Patient admitted to: Inpatient With expected LOS: >2 Midnights Patient will require the following post-hospital care: None Practitioner: I am a practitioner with admitting privileges, knowledge of patient current condition, hospital course, and medical plan of care. Services: Services provided to patient in accordance with Admission requirements found in Title 42 Section 412.3 of the Code of Federal Regulations Patient History Date of Service: 11/13/21 Primary Care Provider: Dr. Talbot Reason for admission: Pain, swelling to the left lower quadrant abdomen History of Present Illness: 61-year-old male with history of chronic lymphedema, hypertension and asbestosis exposure. Patient came to the ER for increase swelling, pain and erythema to the left lower quadrant of the abdomen. Over the last 2 days he has noted increased warmth. No exudate noted. Patient denied any fever. Some chills noted. Patient has a large pannus. Patient with history of chronic lymphedema. Patient came to the ER for further evaluation In the ER patient was evaluated. White count 11.2, hemoglobin 14. Platelet count 217. Sodium 138, potassium 3.8. BUN of 28, creatinine 1.08 with a GFR 70. Glucose 120. Covid test negative. Urinalysis negative. Lactic acid normal. Procalcitonin negative. Troponin negative. CT scan of abdomen pending. Patient admitted for treatment. Allergies codeine Allergy (Verified 10/25/17 09:11) Shortness of breath acetaminophen [From Vicodin] Adverse Reaction (Intermediate, Verified 03/08/13 22:45) Shortness of breath hydrocodone bitartrate [From Vicodin] Adverse Reaction (Intermediate, Verified 03/08/13 22:45) Shortness of breath Home medications list reviewed: Yes Home Medications: Furosemide [Lasix*] 20 mg PO DAILY 10/24/17 Losartan Potassium 100 mg PO DAILY 10/24/17 Potassium Bicarbonate/Cit AC [Potassium 25 Meq Tablet Eff] 1 tab PO DAILY 10/24/17 Verapamil HCl [Verapamil ER] 120 mg PO DAILY 10/24/17 lisinopriL [Prinivil*] 20 mg PO DAILY 10/24/17 Aspirin [Aspirin EC 325 MG] 325 mg PO DAILY #30 tablet. 10/25/17 Atorvastatin Calcium [Lipitor] 80 mg PO BEDTIME #30 tab 10/25/17 - Past Medical/Surgical History Diabetic: No -: HTN -: Chronic lymphedema -: Morbid obesity -: History of asbestosis exposure -: appendectomy -: carpaltunnel surg in L hand -: L knee "clean up" -: vein procedure in L leg Psychosocial/ Personal History: Patient lives with son. He is a - Family History Family History: Reviewed- Non-Contributory - Family History Mother -: Heart disease, Hypertension Father -: Cancer Notes: lung cancer - Social History Smoking Status: Never smoker Alcohol use: Yes CD- Drugs: No Caffeine use: Yes Place of Residence: Home Review of Systems General: As per HPI Eyes: Unremarkable ENT: Unremarkable Respiratory: Unremarkable Cardiovascular: Unremarkable Gastrointestinal: Unremarkable Genitourinary: Unremarkable Musculoskeletal: As per HPI Integumentary: As per HPI Neurological: Unremarkable Lymphatics: Unremarkable Physical Examination - Studies Laboratory Data (last 24 hrs) 11/13/21 08:00: PT 11.8, INR 1.03, APTT 28.4 11/13/21 08:00: Amylase 30 11/13/21 08:00: WBC 11.20 H, Hgb 14.1, Hct 43.1, Plt Count 217 11/13/21 08:00: Sodium 138, Potassium 3.9, BUN 28 H, Creatinine 1.08, Glucose 120 H, Total Bilirubin 0.4, AST 11 L, ALT 23, Alkaline Phosphatase 82, Lipase 134 Assessment and Plan - Plan COVID: Negative CT scan abdomen: Pending Physical Exam: GENERAL: The patient is a well-developed, well-nourished, in no apparent distress. Alert and oriented x3. VITAL SIGNS: Reviewed HEENT: Head is normocephalic and atraumatic. Extraocular muscles are intact. Pupils are equal, round, and reactive to light and accommodation. Nares appeared normal. Mouth is well hydrated and without lesions. Mucous membranes are moist. NECK: Supple. No carotid bruits. No lymphadenopathy or thyromegaly. LUNGS: Clear to auscultation. No crackles or wheezes are heard. HEART: Regular rate and rhythm, no appreciable gallops, rubs, murmurs or extra heart sounds ABDOMEN: Warmth, erythema to the left lower quadrant of the abdomen. No exudate noted. Edema noted to the pannus. Patient morbidly obese with large pannus. EXTREMITIES: Chronic lymphedema to the lower extremities. Large pannus with erythema to the left lower quadrant of abdomen. No open sores. Mild fungal dermatitis noted NEUROLOGIC: The patient is oriented to person, place and time. Strength and sensation are grossly intact. Face is symmetric. SKIN: As above Impression: Left lower quadrant abdominal cellulitis Chronic lymphedema Hypertension Suspect underlying acute on chronic diastolic CHF Morbid obesity Plan: Left lower quadrant abdominal cellulitis: Patient will be admitted further evaluation and treatment. Patient without sepsis or severe sepsis. Will start IV cefepime and vancomycin. Blood cultures obtained. Will check CT scan of abdomen to further evaluate. Patient appears edematous suspect underlying acute on chronic diastolic CHF. Will start IV Lasix. Continue 1500 cc/day fluid restriction. We will continue to monitor closely. Anticipate improvement over the next 2 to 3 days. Chronic lymphedema: We will start Lasix IV 20 mg twice daily. Will monitor closely. Will check echocardiogram. Continue 1500 cc/day fluid restriction. Hypertension: Restart home medication losartan 100 mg daily, verapamil 240 mg twice daily and aspirin 80 mg daily. Will monitor and adjust appropriately. Suspect underlying acute on chronic diastolic CHF: We will check echocardiogram. Continue 1500 cc/day fluid restriction. Will monitor input output closely and daily weight. We will start IV Lasix 20 mg twice daily. Will monitor and address appropriately. Morbid obesity: We will check BMI. Lifestyle modification education provided. Code Status: Full Code DVT prophylaxis: Lovenox Advanced Care Planning-30 minutes: Home at discharge. Discharge Plan: Home Plan to discharge in: Greater than 2 days - Advance Directives Does patient have a Living Will: No Does patient have a Durable POA for Healthcare: No - Code Status/Comfort Care Code Status Assessed: Yes (Full code) Time Spent Managing Pts Care (In Minutes): 55
[2021-11-13 11:42] LABS: White Blood Cell Scan OK (OK)
[2021-11-13 11:43] LABS: Blood Morphology Comment NOT SEEN (NOT SEEN); Platelet Estimate ADEQ
[2021-11-13] MEDS ORDERED: IBUPROFEN 400 MG TAB PO PRN (13:31)
[2021-11-13] MEDS ORDERED: ONDANSETRON 4 MG/2 ML VIAL IV PRN (13:31)
[2021-11-13] MEDS ORDERED: CEFEPIME 1 GM in NA CHLORIDE 0.9% 100 ML IV SCH (14:00)
[2021-11-13] MEDS: LACTOBACILLUS/ACIDOPHILUS TAB PO SCH ×2 (14:00→20:04)
[2021-11-13] MEDS ORDERED: NA CHLORIDE 0.9% 100 ML ONE (15:18)
[2021-11-13] MEDS ORDERED: CEFEPIME 1 GM/VIAL ONE (15:18)
[2021-11-13] MEDS: CEFEPIME 1 GM in NA CHLORIDE 0.9% 100 ML IV SCH (15:20)
[2021-11-13] MEDS: VANCOMYCIN 2 GM in NA CHLORIDE 0.9% 500 ML IVPB SCH (16:01)
[2021-11-13 16:08] VITALS: BMI 61.0
[2021-11-13] MEDS ORDERED: FUROSEMIDE 20 MG/ 2ML VIAL ONE (16:41)
[2021-11-13] MEDS: FUROSEMIDE 20 MG/ 2ML VIAL IV SCH (17:43)
[2021-11-13] MEDS: VERAPAMIL SR 240 MG TABLET PO SCH (20:04)
[2021-11-13] MEDS: TRAMADOL HCL 50 MG TAB PO PRN (22:38)
[2021-11-14] MEDS: VANCOMYCIN 2 GM in NA CHLORIDE 0.9% 500 ML IVPB SCH ×3 (02:30→17:08)
[2021-11-14 05:45] LABS: Absolute Lymphocytes (CBC) 0.7 K/uL (0.7-4.9); Hematocrit 36.6 % (39.6-49.0); Lymphocytes % 9.4 % (15.3-44.8); MPV 8.3 fL (7.6-11.3); RBC Red Blood Cell Count 4.09 M/uL (4.33-5.43)
[2021-11-14] MEDS: TRAMADOL HCL 50 MG TAB PO PRN (05:51)
--- NOTE | 2021-11-14 06:01 | P.PN ---
Subjective Date of Service: 11/14/21 Primary Care Provider: Dr. Talbot Chief Complaint: Pain, swelling to the left lower quadrant abdomen Subjective: Improving, Doing well Physical Examination - Vital Signs Temperature: 98.1 F Blood Pressure: 142/67 Pulse: 89 Respirations: 18 Pulse Ox (%): 99 - Studies Laboratory Data (last 24 hrs) 11/13/21 08:00: PT 11.8, INR 1.03, APTT 28.4 11/13/21 08:00: Amylase 30 11/13/21 08:00: WBC 11.20 H, Hgb 14.1, Hct 43.1, Plt Count 217 11/13/21 08:00: Sodium 138, Potassium 3.9, BUN 28 H, Creatinine 1.08, Glucose 120 H, Total Bilirubin 0.4, AST 11 L, ALT 23, Alkaline Phosphatase 82, Lipase 134 Assessment & Plan Discharge Plan: Home Plan to discharge in: 48 Hours Physician Review Additional Text: COVID: Negative Abdominal ultrasound: Pending Physical Exam: GENERAL: The patient is a well-developed, well-nourished, in no apparent distress. Alert and oriented x3. VITAL SIGNS: Reviewed HEENT: Head is normocephalic and atraumatic. Extraocular muscles are intact. Pupils are equal, round, and reactive to light and accommodation. Nares appeared normal. Mouth is well hydrated and without lesions. Mucous membranes are moist. NECK: Supple. No carotid bruits. No lymphadenopathy or thyromegaly. LUNGS: Clear to auscultation. No crackles or wheezes are heard. HEART: Regular rate and rhythm, no appreciable gallops, rubs, murmurs or extra heart sounds ABDOMEN: Warmth, erythema to the left lower quadrant of the abdomen improved. Patient with large pannus. Patient morbidly obese. Swelling also improved. EXTREMITIES: Chronic lymphedema to the lower extremities. Edema to the lower extremities improved. Large pannus with erythema to the left lower quadrant of abdomen. No open sores. Mild fungal dermatitis noted NEUROLOGIC: The patient is oriented to person, place and time. Strength and sensation are grossly intact. Face is symmetric. SKIN: As above Impression: Left lower quadrant abdominal wall cellulitis Chronic lymphedema Hypertension Suspect underlying acute on chronic diastolic CHF Morbid obesity, BMI 61 Plan: Left lower quadrant abdominal wall cellulitis: Patient improved. Edema, erythema and pain improved. Continue IV cefepime and vancomycin. Blood culture so far negative. CT scan cannot be done due to his weight. Will check abdominal ultrasound to rule out abscess which is not likely. Continue with IV diuresis. Suspect underlying chronic diastolic CHF. Will check echocardiogram. Anticipate continued improvement likely home in the next 24 to 48 hours. I will turn the service over the hospitalist team tomorrow. I will go over the plan of care with him. Chronic lymphedema: Continue Lasix IV 20 mg twice daily. Will monitor closely. Will check echocardiogram to evaluate for underlying CHF. Continue 1500 cc/day fluid restriction. Hypertension: Continue losartan 100 mg daily, verapamil 240 mg twice daily and aspirin 80 mg daily. Will monitor and adjust appropriately. Suspect underlying acute on chronic diastolic CHF: Will obtain echocardiogram to evaluate for CHF. Continue 1500 cc/day fluid restriction. Will monitor input output closely and daily weight. Continue IV Lasix 20 mg twice daily. Patient has used Lasix in the past but was not using it at home due to cramping. This may need to be continued at discharge. Morbid obesity, BMI 61: Continue lifestyle modification education. Code Status: Full Code DVT prophylaxis: Lovenox Advanced Care Planning-30 minutes: Home at discharge. Time Spent Managing Pts Care (In Minutes): 55
[2021-11-14 06:15] LABS: Magnesium 2.3 mg/dL (1.8-2.4); Potassium 4.2 mmol/L (3.5-5.1); Thyroid Stimulating Hormone 0.89 uIU/mL (0.360-3.740)
[2021-11-14] MEDS: CEFEPIME 1 GM in NA CHLORIDE 0.9% 100 ML IV SCH ×5 (08:00→17:08)
[2021-11-14] MEDS: LOSARTAN POTASSIUM 50 MG TABLET PO SCH (08:36)
[2021-11-14] MEDS: VERAPAMIL SR 240 MG TABLET PO SCH (08:36)
[2021-11-14] MEDS: ENOXAPARIN 40 MG/0.4 ML SQ SCH (08:36)
[2021-11-14] MEDS: FUROSEMIDE 20 MG/ 2ML VIAL IV SCH ×2 (08:37→17:09)
[2021-11-14] MEDS: ASPIRIN EC 81 MG TAB PO SCH (08:37)
[2021-11-14] MEDS: LACTOBACILLUS/ACIDOPHILUS TAB PO SCH ×3 (08:37→20:56)
[2021-11-14] MEDS ORDERED: BROMFENAC SODIUM RIGHT EYE SCH (09:00)
[2021-11-14] MEDS ORDERED: HOME MED 1 EA UNK (Prednisolone Acetate/Pf [Prednisolone Acet 1% Eye Drop] 5 ML Drops.Susp RIGHT EYE SCH (09:00)
[2021-11-14] MEDS ORDERED: HOME MED 1 EA UNK (Brinzolamide/Brimonidine Tart [Simbrinza 1%-0.2% Eye Drops] 8 ML Drops. RIGHT EYE SCH (09:00)
--- NOTE | 2021-11-14 14:25 | RAD REPORT ---
EXAM DESCRIPTION: US - Abdomen Exam Complete - 11/14/2021 2:03 pm CLINICAL HISTORY: Abdominal pain. LLQ ab cellulitis COMPARISON: Abdomen Exam Limited dated 10/23/2017 FINDINGS: Body habitus significantly limits the study. Prominent fatty liver pattern is seen with mild hepatomegaly probably present. No focal liver lesions or intrahepatic biliary dilatation is seen. The gallbladder demonstrates no gallstones, pericholecystic fluid or gallbladder wall thickening. Co mmon bile duct is normal in caliber measuring 5 millimeters. Both kidneys are normal in size, shape and echotexture. No hydronephrosis, focal lesion of concern or perinephric fluid. The spleen is normal in size measuring 12 cm. The pancreas and aorta are obscured by bowel gas. The IVC poorly visualized due to bowel gas. IMPRESSION: Fatty liver infiltration is seen with probable hepatomegaly present. Exam quality was limited body habitus and significant bowel gas shadowing.
[2021-11-14] MEDS: Latanoprost/Pf [Latanoprost 0.005% Eye Drop] 7.5 ML Drops OPTH SCH (20:57)
[2021-11-14] MEDS: BRINZOLAMIDE OPTH SCH (20:58)
[2021-11-14] MEDS: PREDNISOLONE ACETATE OPTH SCH (20:58)
[2021-11-14] MEDS: BRIMONIDINE TART OPTH SCH (20:58)
[2021-11-15] MEDS: CEFEPIME 1 GM in NA CHLORIDE 0.9% 100 ML IV SCH ×3 (01:35→16:04)
[2021-11-15 01:46] LABS: Hematocrit 39.9 % (39.6-49.0); Lymphocytes % 13.5 % (15.3-44.8); MPV 8.4 fL (7.6-11.3); RBC Red Blood Cell Count 4.43 M/uL (4.33-5.43)
[2021-11-15] MEDS: TRAMADOL HCL 50 MG TAB PO PRN ×2 (01:53→22:09)
[2021-11-15 02:03] LABS: Magnesium 2.4 mg/dL (1.8-2.4)
[2021-11-15] MEDS: VANCOMYCIN 2 GM in NA CHLORIDE 0.9% 500 ML IVPB SCH ×2 (03:42→14:07)
[2021-11-15] MEDS: AMLODIPINE 5 MG TAB PO SCH (07:58)
[2021-11-15] MEDS: LACTOBACILLUS/ACIDOPHILUS TAB PO SCH ×3 (07:58→20:20)
[2021-11-15] MEDS: ASPIRIN EC 81 MG TAB PO SCH (07:59)
[2021-11-15] MEDS: LOSARTAN POTASSIUM 50 MG TABLET PO SCH (07:59)
[2021-11-15] MEDS: FUROSEMIDE 20 MG/ 2ML VIAL IV SCH ×2 (07:59→16:04)
[2021-11-15] MEDS: Bromfenac Sodium [Prolensa] 3 ML Drops OPTH SCH (08:00)
[2021-11-15] MEDS: BRIMONIDINE TART OPTH SCH ×2 (08:04→20:20)
[2021-11-15] MEDS: PREDNISOLONE ACETATE OPTH SCH ×2 (08:04→20:22)
[2021-11-15] MEDS: BRINZOLAMIDE OPTH SCH ×2 (08:04→20:20)
[2021-11-15] MEDS: ENOXAPARIN 40 MG/0.4 ML SQ SCH (08:04)
[2021-11-15] MEDS ORDERED: MAGNES/ALUMIN/SIMET 30ML UCUP PO ONE (10:05)
--- NOTE | 2021-11-15 14:07 | ECHO ---
HEIGHT: 6 ft 0 in WEIGHT: 450 lb 0.121 oz DATE OF STUDY: 11/15/[address]: Petey Fritz DO 2-DIMENSIONAL: YES M.MODE: YES DOPPLER: YES COLOR FLOW: YES TDS: PORTABLE: DEFINITY: BUBBLE STUDY: DIAGNOSIS: HYPERTENSION/ CONGESTIVE HEART FAILURE CARDIAC HISTORY: CATHERIZATION: SURGERY: PROSTHETIC VALVE: PACEMAKER: MEASUREMENTS (cm) DIASTOLIC (NORMALS) SYSTOLIC (NORMALS) IVSd 1.5 (0.6-1.2) LA Diam 4.7 (1.9-4.0) LVEF 55% LVIDd 5.7 (3.5-5.7) LVIDs 4.0 (2.0-3.5) %FS 29% LVPWd 1.7 (0.6-1.2) Ao Diam 3.5 (2.0-3.7) 2 DIMENSIONAL ASSESSMENT: RIGHT ATRIUM: NORMAL LEFT ATRIUM: NORMAL RIGHT VENTRICLE: NORMAL LEFT VENTRICLE: NORMAL TRICUSPID VALVE: MILD TRICUSPID REGURGITATION MITRAL VALVE: NORMAL PULMONIC VALVE: MILD PULMONIC INSUFFIENCY AORTIC VALVE: NORMAL PERICARDIAL EFFUSION: NONE AORTIC ROOT: NORAML LEFT VENTRICULAR WALL MOTION: NORMAL DOPPLER/COLOR FLOW: SEE BELOW COMMENTS: NORMAL LEFT VENTRICULAR EJECTION FRACTION 55-60. NORMAL WALL MOTION. MILD TRICUSPID REGURGITATION. MILD PULMONIC INSUFFIENCY. TECHNOLOGIST: ZOE OVIEDO
[2021-11-15] MEDS: Latanoprost/Pf [Latanoprost 0.005% Eye Drop] 7.5 ML Drops OPTH SCH (20:21)
[2021-11-16] MEDS: CEFEPIME 1 GM in NA CHLORIDE 0.9% 100 ML IV SCH ×3 (00:06→16:37)
[2021-11-16] MEDS: VANCOMYCIN 2 GM in NA CHLORIDE 0.9% 500 ML IVPB SCH ×2 (02:51→15:18)
[2021-11-16 04:12] LABS: Hematocrit 36.6 % (39.6-49.0); Lymphocytes % 20.6 % (15.3-44.8); MPV 8.4 fL (7.6-11.3); RBC Red Blood Cell Count 4.13 M/uL (4.33-5.43)
[2021-11-16 04:30] LABS: Magnesium 2.3 mg/dL (1.8-2.4)
[2021-11-16] MEDS: LACTOBACILLUS/ACIDOPHILUS TAB PO SCH ×3 (08:05→20:06)
[2021-11-16] MEDS: FUROSEMIDE 20 MG/ 2ML VIAL IV SCH ×2 (08:05→16:38)
[2021-11-16] MEDS: AMLODIPINE 5 MG TAB PO SCH (08:05)
[2021-11-16] MEDS: LOSARTAN POTASSIUM 50 MG TABLET PO SCH (08:05)
[2021-11-16] MEDS: ENOXAPARIN 40 MG/0.4 ML SQ SCH (08:05)
[2021-11-16] MEDS: Bromfenac Sodium [Prolensa] 3 ML Drops OPTH SCH (08:06)
[2021-11-16] MEDS: ASPIRIN EC 81 MG TAB PO SCH (08:06)
[2021-11-16] MEDS: BRIMONIDINE TART OPTH SCH ×2 (08:06→20:08)
[2021-11-16] MEDS: PREDNISOLONE ACETATE OPTH SCH ×2 (08:06→20:08)
[2021-11-16] MEDS: BRINZOLAMIDE OPTH SCH ×2 (08:06→20:08)
[2021-11-16] MEDS: TRAMADOL HCL 50 MG TAB PO PRN (18:52)
[2021-11-16 20:00] VITALS: O2SAT 92
[2021-11-16] MEDS: Latanoprost/Pf [Latanoprost 0.005% Eye Drop] 7.5 ML Drops OPTH SCH (20:13)
[2021-11-17] MEDS: CEFEPIME 1 GM in NA CHLORIDE 0.9% 100 ML IV SCH ×2 (01:00→09:00)
[2021-11-17] MEDS: TRAMADOL HCL 50 MG TAB PO PRN (02:24)
[2021-11-17] MEDS: VANCOMYCIN 2 GM in NA CHLORIDE 0.9% 500 ML IVPB SCH (03:00)
[2021-11-17] MEDS ORDERED: HYDRALAZINE HCL 20 MG/ML VIAL IV PRN (05:19)
[2021-11-17 06:33] LABS: Absolute Lymphocytes (CBC) 0.7 K/uL (0.7-4.9); Lymphocytes % 17.9 % (15.3-44.8); MPV 7.7 fL (7.6-11.3); RBC Red Blood Cell Count 4.32 M/uL (4.33-5.43)
[2021-11-17 06:43] LABS: BUN Blood Urea Nitrogen 17 mg/dL (7-18); Bicarbonate 28 mmol/L (21-32); Glucose Level 100 mg/dL (74-106); Magnesium 2.3 mg/dL (1.8-2.4); Phosphorus 3.1 mg/dL (2.5-4.9); Potassium 3.7 mmol/L (3.5-5.1); Sodium Level 138 mmol/L (136-145)
[2021-11-17] MEDS: BRIMONIDINE TART OPTH SCH (09:00)
[2021-11-17] MEDS: PREDNISOLONE ACETATE OPTH SCH (09:00)
[2021-11-17] MEDS: Bromfenac Sodium [Prolensa] 3 ML Drops OPTH SCH (09:00)
[2021-11-17] MEDS: BRINZOLAMIDE OPTH SCH (09:00)
[2021-11-17] MEDS: AMLODIPINE 5 MG TAB PO SCH (09:27)
[2021-11-17] MEDS: LACTOBACILLUS/ACIDOPHILUS TAB PO SCH (09:27)
[2021-11-17] MEDS: LOSARTAN POTASSIUM 50 MG TABLET PO SCH (09:27)
[2021-11-17] MEDS: ASPIRIN EC 81 MG TAB PO SCH (09:27)
[2021-11-17] MEDS: FUROSEMIDE 20 MG/ 2ML VIAL IV SCH (09:28)
[2021-11-17] MEDS: ENOXAPARIN 40 MG/0.4 ML SQ SCH (09:28)
[2021-11-17 09:29] VITALS: BP 197/90
[2021-11-17 09:50] VITALS: TEMP 97
--- NOTE | 2021-11-22 01:08 | P.PN ---
Subjective Date of Service: 11/15/21 Patient has done well during hospital stay. Will continue with antibiotic therapy. Review of Systems 10-point ROS is otherwise unremarkable Physical Examination - Vital Signs Temperature: 97.0 F Blood Pressure: 197/90 Pulse: 76 Respirations: 22 Pulse Ox (%): 97 - Physical Exam General: Alert, In no apparent distress, Oriented x3 HEENT: Atraumatic, PERRLA, EOMI Neck: Supple, JVD not distended Respiratory: Clear to auscultation bilaterally, Normal air movement Cardiovascular: Regular rate/rhythm, Normal S1 S2 Gastrointestinal: Normal bowel sounds, No tenderness Musculoskeletal: No tenderness Integumentary: No rashes Neurological: Normal speech, Normal tone, Normal affect Lymphatics: No axilla or inguinal lymphadenopathy - Studies Medications List Reviewed: Yes Assessment & Plan - Problems (Diagnosis) (1) Abdominal wall cellulitis Status: Acute (2) CVA (cerebral vascular accident) Onset Date: 10/25/17 Status: Acute Qualifiers: CVA mechanism: occlusion Precerebral and cerebral artery: unspecified cerebral artery Qualified Code(s): I63.50 - Cerebral infarction due to unspecified occlusion or stenosis of unspecified cerebral artery (3) HTN (hypertension) Onset Date: 10/25/17 Status: Acute Qualifiers: Hypertension type: essential hypertension Qualified Code(s): I10 - Essential (primary) hypertension (4) Morbid (severe) obesity due to excess calories Onset Date: 10/25/17 Status: Chronic - Plan 1. Continue with IV antibiotic 2. Continue with local wound care 3. Surgical consultation 4. Gentle IV hydration 5. Monitor CBC 6. Strict blood sugar monitoring 7. Pain control 8. GI and DVT prophylaxis Discharge Plan: Home Plan to discharge in: Greater than 2 days - Advance Directives Does patient have a Living Will: No Does patient have a Durable POA for Healthcare: No - Code Status/Comfort Care Code Status Assessed: Yes Code Status: Full Code Critical Care: No Time Spent Managing PTS Care (In Minutes): 45
--- NOTE | 2021-11-22 01:09 | P.PN ---
Date of Service: 11/16/21 Subjective Patient continuing to improve. Clinical symptoms are much better. Review of Systems 10-point ROS is otherwise unremarkable Physical Examination - Vital Signs Reviewed - Physical Exam General: Alert, In no apparent distress, Oriented x3 Respiratory: Clear to auscultation bilaterally, Normal air movement Cardiovascular: Regular rate/rhythm, Normal S1 S2 Gastrointestinal: Normal bowel sounds, No tenderness Neurological: Normal speech, Normal tone, Normal affect Assessment & Plan - Problems (Diagnosis) (1) Abdominal wall cellulitis Status: Acute (2) CVA (cerebral vascular accident) Onset Date: 10/25/17 Status: Acute Qualifiers: CVA mechanism: occlusion Precerebral and cerebral artery: unspecified cerebral artery Qualified Code(s): I63.50 - Cerebral infarction due to unspecified occlusion or stenosis of unspecified cerebral artery (3) HTN (hypertension) Onset Date: 10/25/17 Status: Acute Qualifiers: Hypertension type: essential hypertension Qualified Code(s): I10 - Essential (primary) hypertension (4) Morbid (severe) obesity due to excess calories Onset Date: 10/25/17 Status: Chronic - Plan Continue with plan of care as mentioned below: 1. Continue with IV antibiotic 2. Continue with local wound care 3. Surgical consultation 4. Gentle IV hydration 5. Monitor CBC 6. Strict blood sugar monitoring 7. Pain control 8. GI and DVT prophylaxis Discharge Plan: Home Plan to discharge in: Greater than 2 days - Advance Directives Does patient have a Living Will: No Does patient have a Durable POA for Healthcare: No - Code Status/Comfort Care Code Status Assessed: Yes Code Status: Full Code Critical Care: No Time Spent Managing PTS Care (In Minutes): 45
--- NOTE | 2021-11-22 01:10 | P.DS ---
Discharge Date: 11/17/21 Primary Care Provider: Dr. Talbot Disposition: ROUTINE DISCHARGE Discharge Condition: GOOD Reason for Admission: Pain, swelling to the left lower quadrant abdomen - Problems (1) Abdominal wall cellulitis Status: Acute (2) CVA (cerebral vascular accident) Onset Date: 10/25/17 Status: Acute Qualifiers: CVA mechanism: occlusion Precerebral and cerebral artery: unspecified cerebral artery Qualified Code(s): I63.50 - Cerebral infarction due to unspecified occlusion or stenosis of unspecified cerebral artery (3) HTN (hypertension) Onset Date: 10/25/17 Status: Acute Qualifiers: Hypertension type: essential hypertension Qualified Code(s): I10 - Essential (primary) hypertension (4) Morbid (severe) obesity due to excess calories Onset Date: 10/25/17 Status: Chronic Brief History of Present Illness: 61-year-old male with history of chronic lymphedema, hypertension and asbestosis exposure. Patient came to the ER for increase swelling, pain and erythema to the left lower quadrant of the abdomen. Over the last 2 days he has noted increased warmth. No exudate noted. Patient denied any fever. Some chills noted. Patient has a large pannus. Patient with history of chronic lymphedema. P atient came to the ER for further evaluation In the ER patient was evaluated. White count 11.2, hemoglobin 14. Platelet count 217. Sodium 138, potassium 3.8. BUN of 28, creatinine 1.08 with a GFR 70. Glucose 120. Covid test negative. Urinalysis negative. Lactic acid normal. Procalcitonin negative. Troponin negative. CT scan of abdomen pending. Patient admitted for treatment. Hospital Course: At this time, will be continuing antibiotic therapy. Continue with pain medication. Continue with outpatient follow-up. Vital Signs/Physical Exam: Temp Pulse Resp BP Pulse Ox 97.0 F 76 22 H 197/90 H 97 11/22/21 01:08 11/22/21 01:08 11/22/21 01:08 11/22/21 01:08 11/22/21 01:08 General: Alert, In no apparent distress, Oriented x3 Laboratory Data at Discharge: WBC 3.90 K/uL (4.3-10.9) L D 11/17/21 06:10 Hgb 12.7 g/dL (13.6-17.9) L 11/17/21 06:10 Hct 38.0 % (39.6-49.0) L 11/17/21 06:10 Plt Count 227 K/uL (152-406) 11/17/21 06:10 PT 11.8 SECONDS (9.5-12.5) 11/13/21 08:00 INR 1.03 11/13/21 08:00 APTT 28.4 SECONDS (24.3-36.9) 11/13/21 08:00 Sodium 138 mmol/L (136-145) 11/17/21 06:10 Potassium 3.7 mmol/L (3.5-5.1) 11/17/21 06:10 BUN 17 mg/dL (7-18) 11/17/21 06:10 Creatinine 0.84 mg/dL (0.55-1.3) 11/17/21 06:10 Glucose 100 mg/dL (74-106) 11/17/21 06:10 Phosphorus 3.1 mg/dL (2.5-4.9) 11/17/21 06:10 Magnesium 2.3 mg/dL (1.8-2.4) 11/17/21 06:10 Total Bilirubin 0.4 mg/dL (0.2-1.0) 11/13/21 08:00 AST 11 U/L (15-37) L 11/13/21 08:00 ALT 23 U/L (12-78) 11/13/21 08:00 Alkaline Phosphatase 82 U/L (45-117) 11/13/21 08:00 Amylase 30 U/L (25-115) 11/13/21 08:00 Lipase 134 U/L (73-393) 11/13/21 08:00 Home Medications: Losartan Potassium 100 mg PO DAILY 10/24/17 Aspirin [Aspirin EC 325 MG] 81 mg PO DAILY 11/13/21 Brinzolamide/Brimonidine Tart [Simbrinza 1%-0.2% Eye Drops] 1 drop RIGHT EYE BID 11/13/21 Bromfenac Sodium [Prolensa] 1 drop RIGHT EYE DAILY 11/13/21 Latanoprost/Pf [Latanoprost 0.005% Eye Drop] 1 drop EACH EYE BEDTIME 11/13/21 Prednisolone Acetate/Pf [Prednisolone Acet 1% Eye Drop] 1 drop RIGHT EYE DAILY 11/13/21 Amlodipine [Norvasc*] 10 mg PO DAILY #30 tab 11/17/21 Furosemide [Lasix] 20 mg PO BIDL #60 tab 11/17/21 Minocycline HCl 100 mg PO BID #20 capsule 11/17/21 Potassium Chloride [K-Dur] 20 meq PO DAILY #30 tab.er.prt 11/17/21 Smz./Tmp. [Bactrim Ds 800 MG/160 MG] 1 tab PO BID #20 tab 11/17/21 New Medications: Smz./Tmp. [Bactrim Ds 800 MG/160 MG] 1 tab PO BID #20 tab Potassium Chloride [K-Dur] 20 meq PO DAILY #30 tab.er.prt Furosemide [Lasix] 20 mg PO BIDL #60 tab Minocycline HCl 100 mg PO BID #20 capsule Amlodipine [Norvasc*] 10 mg PO DAILY #30 tab Physician Discharge Instructions: OK TO DC IV AND DC HOME FOLLOW-UP WITH PRIMARY CARE PROVIDER IN 1-2 WEEKS FOLLOW-UP WITH CARDIOLOGY IN 1-2 WEEKS Follow-up with bariatric surgery in 4-6 weeks RETURN TO THE ER IF symptoms worsen CALL or TEXT DR. WONG AT [phone] IF ANY QUESTIONS REGARDING HOSPITAL STAY. PLEASE CALL THE FLOOR AT [phone] IF ANY MEDICATION OR NURSING QUESTIONS. Diet: AHA Activity: Fall precautions Followup: Liam Dougherty MD [ACTIVE - CAN ADMIT] - Quirino Talbot MD [Primary Care Provider] - Time spent managing pt's care (in minutes): 35
== END 2021-11-17 12:04 | disposition home or self-care (01) | DRG 602 ==
LOC: ER 06:53 → ERHOLD 11:00 → 2ND 17:48
PROVIDERS: ADMIT Family Medicine; ATTEND Family Medicine
DX: L03.311 Cellulitis of abdominal wall (principal); I50.33 Acute on chronic diastolic (congestive) heart failure; Z68.44 Body mass index [BMI] 60.0-69.9, adult; E66.01 Morbid (severe) obesity due to excess calories; I89.0 Lymphedema, not elsewhere classified; I11.0 Hypertensive heart disease with heart failure; Z20.822 Contact with and (suspected) exposure to COVID-19
CPT/HCPCS: 36415; 76700; 80048; 80076; 80202; 81003; 81015; 82150; 82550; 82553; 83605; 83690; 83735; 84100; 84145; 84439; 84443; 84484; 85025; 85610; 85730; 86140; 87040; 93005; 93306; 96361; 96365; 96375; 99284; J0360; J0692; J1650; J1940; J2405; J3370; J7030; J7040; U0003

== ENCOUNTER 2023-04-08 18:16 | Observation (INO) | payer OTHER ==
--- OUTSIDE RECORDS SUMMARY | 2023-04-08 18:20 | XMS REPORT | Continuity of Care Document ---
:1960 Author Organization [facility] t Address [address] [place] [address] Care Team Providers Name Role Phone GARCIALARS DWYERMARQUISE Moraes Primary Care Physician Unavailable Christal Abel MD Attending Clinician CHRISTAL ABEL Attending Clinician Unavailable Only, Adc Test Attending Clinician Unavailable Pob, Adc Lab Main Attending Clinician Unavailable Doctor Unassigned, [place] Attending Clinician Unavailable Aman Stacy MD Attending Clinician AMAN STACY Attending Clinician Unavailable Christal Abel MD Admitting Clinician CHRISTAL ABEL Admitting Clinician Unavailable Aman Stacy MD Admitting Clinician AMAN STACY Admitting Clinician Unavailable Payers Payer Name Policy Type Policy Number Effective Date Expiration Date S ource Problems This patient has no known problems. Allergies, Adverse Reactions, Alerts Allergy Allergy Status Severity Reaction(s) Onset Inactive Treating Comm ents Source Name Type Date Date Clinician Hydrocod Propensi Active Unknown - Shakes Uni vers one-Acet ty to See comments - it y of aminophe adverse 00:00: [place] [...] 2014-11 Univers INGREDI 0-20 ity of 00:00: [address] Branch Social History Social Habit Start Date Stop Date Quantity Comments Source Exposure to Not sure [facility] SARS-CoV-2 [facility] (event) Branch Alcohol intake 2021-11-02 2021-11-02 Current University of 00:00:00 00:00:00 non-drinker of [facility] [place] alcohol [place] (finding) Tobacco use and 2015-09-08 2015-09-08 Never used Universit y of exposure 00:00:00 00:00:00 [facility] Sex Assigned At [birth year] Universit y of 00:00:00 00:00:00 [facility] Smoking Status Start Date Stop Date Source Never smoker [facility] Medications Ordered Filled Start Stop Current Ordering Indication Dosage Frequency Signature Comments Components Source Medication Medication Date Date Medication? Clinician (SIG) Name Name water for 2020-11 Yes PRN, Univers irrigation 2-16 Starting ity o f irrigation 15:49: on [facility] [place] solution 00 11/04/21 Medical at 0949, Branch Until Discontinu ed, Routine, Intra-op neomycin-po 2020-11 Yes PRN, Univer s lymyxin-dex 2-16 Starting ity of amethasone 15:49: on [facility] (MAXITROL) 11/04/21 Medic al 3.5 at 0949, [place] mg/g-10,000 Until unit/g-0.1 Discontinu % ed, ophthalmic Routine, ointment Intra-op gentamicin 2020-11 Yes PRN, Univers injection 2-16 Starting ity of 15:49: on [facility] 11/04/21 Medical at 0949, Branch Until Discontinu ed, AGUILA, Intra-op water for 2020-11- No PRN, Univers irrigation 2-16 12-16 Starting ity of irrigation 15:49: 19:36 on [facility] solution 00 :50 11/04/21 Medical at 0949, Branch Until [place] 11/04/21 at 1336, Routine, [...] 01-05 Starting ity of VISCO 15:48: on [place] ELASTIC) 3 00 11/04/21 Medic al %-4 %(0.5 at 0948, Branch mL) 1 % Until (0.55 mL) Discontinu intraocular ed, injection Routine, Intra-op dexamethaso 2020-11 Yes PRN, Univer ne 01-05 Starting ity of (DECADRON 15:48: on [place] PHOSPHATE) 00 11/04/21 Medic al injection at 0948, Branch Until Discontinu ed, Routine, Intra-op NaCl 0.9% 2020-11 Yes PRN, Univers (NS) 01-05 Starting ity of injection 15:48: on [place] 00 11/04/21 Medical at 0948, Branch Until Discontinu ed, Routine, Intra-op DUOVISC 2020-11- No PRN, Univers (DUOVISC 01-05 Starting ity of VISCO 15:48: 19:36 on Maria[place] ELASTIC) 3 00 :50 11/04/21 Medic al %-4 %(0.5 at 0948, Branch mL) 1 % Until [place] (0.55 mL) 11/04/21 intraocular at 1336, injection Routine, Intra-op dexamethaso 2020-11- No PRN, Eating [facility] ne -11-04 Starting ity of (DECADRON 15:48: 19:36 on Mariajose [place] PHOSPHATE) 00 :50 11/04/21 Medic al injection at 0948, Branch Until [place] 11/04/21 at 1336, Routine, Intra-op NaCl 0.9% 2020-11- No PRN, Univers (NS) 01-05 Starting ity of injection 15:48: 19:36 on [place] 00 :50 11/04/21 Medical at 0948, Branch Until [place] 11/04/21 at 1336, Routine, Intra-op ceFAZolin 2020-11 Yes PRN, Univers (ANCEF) 216 Starting ity of injection 15:47: on [place] 00 11/04/21 Medical at 0947, Branch Until Discontinu ed, AGUILA, Intra-op tetracaine 2020-11 Yes PRN, Univers (PONTOCAINE -16 Starting ity of ) 0.5 % 15:47: on [place] ophthalmic 00 11/04/21 Medic al drops at 0947, Branch Until Discontinu ed, Routine, Intra-op ceFAZolin 2020-11- No PRN, Univers (ANCEF) 01-05 Starting ity of injection 15:47: 19:36 on [place] 00 :50 11/04/21 Medical at 0947, Branch Until [place] 11/04/21 at 1336, AGUILA, Intra-op tetracaine 2020-11- No PRN, Univer s (PONTOCAINE 01-05 Starting ity of ) 0.5 % 15:47: 19:36 on [place] ophthalmic 00 :50 11/04/21 Medic al drops at 0947, Branch Until [place] 11/04/21 at 1336, Routine, Intra-op eye block 2020-11 Yes PRN, Univers syringe 11 16 Starting ity o f mL 15:46: on [place] 00 21 Medical at 0946, Branch Until Discontinu ed, Intra-op eye block 2020-11- No PRN, Univers syringe 11 -11-04 Starting ity of mL 15:46: 19:36 on Mariajose [place] 00 :50 21 Medical at 0946, Branch Until [place] 11/04/21 at 1336, Intra-op EPINEPHrine 2020-11 Yes PRN, Univer s (PF) 2- Starting ity of 1:1,000 (1 15:45: on [...] by mouth ity of tablet 11:31: daily. [address] lisinopril 2020-11 Yes 20mg Take 20 mg U nivers (PRINIVIL,Z 2-16 by mouth 2 it y of ESTRIL) 20 11:31: (two) [place] mg tablet 49 times Medical daily. Branch verapamil 2020-11 Yes 120mg Take 120 Uni vers (ISOPTIN) 2-16 mg by ity of 120 mg 11:31: mouth 2 [place] tablet 49 (two) Medical times [place] daily. ALBUTEROL 2020-11 Yes Inhale. Unive rs INHALE 2-16 ity of 11:31: [address] aspirin 81 2020-11 Yes 81mg Take 81 mg U nivers mg EC 2-16 by mouth ity of tablet 11:31: daily. [address] lisinopril 2020-11 Yes 20mg Take 20 mg U nivers (PRINIVIL,Z 2-16 by mouth 2 it y of ESTRIL) 20 11:31: (two) [place] mg tablet 49 times Medical daily. Branch verapamil 2020-11 Yes 120mg Take 120 Uni vers (ISOPTIN) 2-16 mg by ity of 120 mg 11:31: mouth 2 [place] tablet 49 (two) Medical times [place] daily. ALBUTEROL 2020-11 Yes Inhale. Unive rs INHALE 2-16 ity of 11:31: [address] aspirin 81 2020-11 Yes 81mg Take 81 mg U nivers mg EC 2-16 by mouth ity of tablet 11:31: daily. [address] Branch lisinopril 2020-11 Yes 20mg Take 20 mg U nivers (PRINIVIL,Z 2-16 by mouth 2 it y of ESTRIL) 20 11:31: (two) [place] mg tablet 49 times Medical daily. Branch verapamil 2020-11 Yes 120mg Take 120 Uni vers (ISOPTIN) 2-16 mg by ity of 120 mg 11:31: mouth 2 [place] tablet 49 (two) Medical times Branch daily. ALBUTEROL 2020-11 Yes Inhale. Unive rs INHALE 2-16 ity of 11:31: [place] 49 [facility] Branch simethicone Yes PRN, Univer s (GAS RELIEF 08-18 Starting ity of (SIMETHICON 14:10: on [place] E)) 40 00 08/18/21 at Medical mg/0.6 mL 0910, Branch drops Until Discontinu ed, Routine, Intra-op simethicone 2020- No PRN, Unive rs (GAS RELIEF 08-18 Starting ity of (SIMETHICON 14:10: 17:12 on Mon [place] E)) 40 00 :34 08/18/21 at Medical mg/0.6 mL 0910, Branch drops Until Mon08/18/21 at 1212, Routine, Intra-op lactated 2020- No 1000mL at 42 Unive rs ringers IV 08-18 mL/hr, ity of infusion 13:15: 13:02 1,000 mL, [place] as 1,000 mL 00 :00 IV Medical Infusion, Branch ONCE, 1 dose, On Mon08/18/21 at 0815, Routine, DSU Pre-op lactated 2020- No 1000mL at 42 Unive rs ringers IV 08-18 mL/hr, ity of infusion 13:15: 13:02 1,000 mL, [place] 1,000 mL 00 :00 IV Medical Infusion, Branch ONCE, 1 dose, On Mon08/18/21 at 0815, Routine, DSU Pre-op aspirin 81 Yes 81mg Take 81 mg U nivers mg EC 08-18 by mouth ity of tablet 10:12: daily. [address] lisinopril 0 Yes 20mg Take 20 mg U nivers (PRINIVIL,Z 9-29 by mouth 2 it y of ESTRIL) 20 10:12: (two) [place] mg tablet 34 times Medical daily. Branch verapamil 2020-0 Yes 120mg Take 120 Uni vers (ISOPTIN) 9-29 mg by ity of 120 mg 10:12: mouth 2 [place] tablet 34 (two) Medical times Branch daily. aspirin 81 2020-0 Yes 81mg Take 81 mg U nivers mg EC 9-29 by mouth ity of tablet 10:12: daily. [address] lisinopril 0 Yes 20mg Take 20 mg U nivers (PRINIVIL,Z 9-29 by mouth 2 it y of ESTRIL) 20 10:12: (two) [place] mg tablet 34 times Medical daily. Branch verapamil 0 Yes 120mg Take 120 Uni vers (ISOPTIN) 9-29 mg by ity of 120 mg 10:12: mouth 2 [place] tablet 34 (two) Medical times Branch daily. aspirin 81 2020-0 Yes 81mg Take 81 mg U nivers mg EC 9-29 by mouth ity of tablet 10:12: daily. [address] lisinopril 0 Yes 20mg Take 20 mg U nivers (PRINIVIL,Z 9-29 by mouth 2 it y of ESTRIL) 20 10:12: (two) [place] mg tablet 34 times Medical daily. Branch verapamil 0 Yes 120mg Take 120 Uni vers (ISOPTIN) 9-29 mg by ity of 120 mg 10:12: mouth 2 [place] tablet 34 (two) Medical times Branch daily. aspirin 81 2020-0 Yes 81mg Take 81 mg U nivers mg EC 9-29 by mouth ity of tablet 10:12: daily. [address] lisinopril 2020-0 Yes 20mg Take 20 mg U nivers (PRINIVIL,Z 9-29 by mouth 2 it y of ESTRIL) 20 10:12: (two) [place] mg tablet 34 times Medical daily. Branch verapamil 2020-0 Yes 120mg Take 120 Uni vers (ISOPTIN) 9-29 mg by ity of 120 mg 10:12: mouth 2 [place] tablet 34 (two) Medical times Branch daily. aspirin 81 2014-11 Yes 81mg Take 81 mg U nivers mg EC 0-22 by mouth ity of tablet 10:44: daily. [address] lisinopril 2014-11 Yes 20mg Take 20 mg U nivers (PRINIVIL,Z 0-22 by mouth 2 it y of ESTRIL) 20 10:44: (two) [place] mg tablet 23 times Medical daily. Branch verapamil 2014-11 Yes 120mg Take 120 Uni vers (ISOPTIN) 0-22 mg by ity of 120 mg 10:44: mouth 2 [place] tablet 23 (two) Medical times [place] daily. aspirin 81 2014-11 Yes 81mg Take 81 mg U nivers mg EC 0-22 by mouth ity of tablet 10:44: daily. [address] lisinopril 2014-11 Yes 20mg Take 20 mg U nivers (PRINIVIL,Z 0-22 by mouth 2 it y of ESTRIL) 20 10:44: (two) [place] mg tablet 23 times Medical daily. Branch verapamil 2014-11 Yes 120mg Take 120 Uni vers (ISOPTIN) 0-22 mg by ity of 120 mg 10:44: mouth 2 [place] tablet 23 (two) Medical times [place] daily. Vital Signs Vital Name Observation Time Observation Value Comments Source Systolic blood 2021-11-04 16:37:00 146 mm[Hg] [facility] sity of pressure [facility] Diastolic blood 2021-11-04 16:37:00 69 mm[Hg] [facility] Oxygen saturation in 2021-11-04 16:37:00 99 /min [facility] Arterial blood by [facility] [place] Pulse oximetry Branch Heart rate 2021-11-04 16:30:00 71 /min [facility] Respiratory rate 2021-11-04 16:30:00 24 /min [facility] Body temperature 2021-11-04 16:11:00 36.89 [place] [facility] Body height 2021-10-26 14:41:00 182.9 cm [facility] Body weight 2021-10-26 14:41:00 204.1 kg [facility] BMI 2021-10-26 14:41:00 61.01 kg/m2 [facility] Systolic blood 2021-11-04 16:37:00 146 mm[Hg] Univer sity of pressure [place] [facility] Diastolic blood 2021-11-04 16:37:00 69 mm[Hg] Unive rsity of pressure [place] [facility] Oxygen saturation in 2021-11-04 16:37:00 99 /min University of Arterial blood by [facility] cj Pulse oximetry Branch Heart rate 2021-11-04 16:30:00 71 /min [facility]i ty [facility] [place] [facility] Respiratory rate 2021-11-04 16:30:00 24 /min Univ ersity of [place] [facility] Body temperature 2021-11-04 16:11:00 36.89 [place] Univ ersity of [place] [facility] Body height 2021-10-26 14:41:00 182.9 cm [facility] [place] [facility] Body weight 2021-10-26 14:41:00 204.1 kg [facility] [place] [facility] BMI 2021-10-26 14:41:00 61.01 kg/m2 [facility] [place] [facility] Systolic blood 2021-08-18 15:00:00 158 mm[Hg] Univer sity of pressure [place] [facility] Diastolic blood 2021-08-18 15:00:00 90 mm[Hg] Unive rsity of pressure [place] [facility] Heart rate 2021-08-18 15:00:00 75 /min [facility] [place] [facility] Respiratory rate 2021-08-18 15:00:00 20 /min Univ ersity of [place] [facility] Oxygen saturation in 2021-08-18 15:00:00 100 /min University of Arterial blood by [facility] [place] Pulse oximetry Branch Body temperature 2021-08-18 14:35:00 37.33 [place] Univ ers[facility] [place] [facility] Body height 2021-08-16 14:15:00 182.9 cm [facility] [place] [facility] Body weight 2021-08-16 14:15:00 204.119 kg [facility] [place] [facility] BMI 2021-08-16 14:15:00 61.03 kg/m2 [facility] [place] [facility] Systolic blood 2021-08-18 15:00:00 158 mm[Hg] Univer sity of pressure [place] [facility] Diastolic blood 2021-08-18 15:00:00 90 mm[Hg] Unive rsity of pressure [place] [facility] Heart rate 2021-08-18 15:00:00 75 /min [facility] Respiratory rate 2021-08-18 15:00:00 20 /min [facility] Oxygen saturation in 2021-08-18 15:00:00 100 /min [facility] Arterial blood by [facility] [place] Pulse oximetry Branch Body temperature 2021-08-18 14:35:00 37.33 [place] [facility] Body height 2021-08-16 14:15:00 182.9 cm [facility] Body weight 2021-08-16 14:15:00 204.119 kg [facility] BMI 2021-08-16 14:15:00 61.03 kg/m2 [facility] Procedures Procedure Date / Time Performing Source Performed Clinician PHACOEMULSIFICATION OF 2021-11-04 Josiane [facility] CATARACT WITH INTRAOCULAR 15:35:00 Bhanu Rossi Kavin LENS IMPLANT COVID-19 (ID NOW RAPID 2021-11-02 Josiane [facility] TESTING) 14:19:00 Bhanu [facility] LAB ONLY COVID INTERPRETATION 2021-11-02 Christal Abel [facility] 14:19:00 Bhanu [facility] ASSIGNMENT OF BENEFITS 2021-10-29 Doctor Unassigned, [facility] 16:45:12 [place] [facility] COL[facility]OSCOPY [facility]18 [facility] 13:44:00 C Medical Branch COLONOSCOPY (ENDO) 2021-08-18 Quirino Garcia [facility] 13:37:11 Medical Branch COLONOSCOPY (ENDO) 2021-08-18 Quirino Garcia [facility] 13:37:11 Medical Branch COVID-19 (ID NOW RAPID 2021-08-16 [facility] TESTING) 15:46:00 C Medical Branch ASSIGNMENT OF BENEFITS 2021-08-16 Doctor Unassigned, [facility] 15:36:54 [place] [facility] EXTERNAL PROVIDER RECORDS 2021-07-21 Doctor Unassigned, [facility] 05:01:00 [place] [facility] EXTERNAL PROVIDER RECORDS 2021-07-21 Doctor Unassigned, [facility] 05:01:00 [place] Medical [place] Encounters Start End Encounter Admission Attending Care Care Encounter Source Date/Time Date/Time Type Type Clinicians Facility Department ID 2021-11-04 2021-11-04 Surgery Josiane [facility] [id number] Univers 10:24:00 11:00:00 Christal TEJADA [id number] i ty of [id number] [place] [id number] [facility] 020 Branch 2021-11-04 2021-11-04 [facility] [id number] Univers 08:47:00 10:45:00 Encounter Christal TEJADA [id number] ity of [id number] [id number] [facility] 071 Branch 2021-11-04 2021-11-04 Outpatient R JOSIANE [facility] OPH [id number] Univers 08:47:00 10:45:00 CHRISTAL pizarro [facility] 2021-11-02 2021-11-02 Laboratory Only, Adc Test [facility] 1.2.840. [id number] Univers 08:00:00 08:15:00 Only Christal Abel 350.1.1 3.10 [place]2.[place]2.686 [place] [id number] [facility] 353 Branch 2021-11-02 2021-11-02 Outpatient R JOSIANE [facility] [id number] Univers 08:00:00 08:00:00 CHRISTAL pizarro [facility] 2021-10-29 2021-10-29 Laundry Tech Tabby, Adc Lab Main [facility] 1.2.8 40.114 [id number] Univers 10:50:56 11:05:56 Visit Christal Abel 350.1.1 3.10 [place]2.[place].2.686 [place] PROF[place] [id number] In dical [address] 2021-10-29 2021-10-29 Outpatient R JOSIANE [facility] [id number] Univers 11:00:00 11:00:00 CHRISTAL ity [facility] 2021-10-29 2021-10-29 Orders Doctor PRAVEEN [id number] Univers 00:00:00 00:00:00 Only Unassigned, ADRIENNE [id number] ity of [place] [facility] 4.2.7.2.686 [place] as [id number] [facility] 009 Branch 2021-10-28 2021-10-28 Outpatient R JOSIANE [facility] [id number] Univers 15:45:00 15:45:00 CHRISTAL ity [facility] 2021-08-18 2021-08-18 Hospital [facility] [id number] Univers 07:25:00 10:08:00 Encounter Aman elena [id number] ity [id number] [id number] [facility] 071 Branch 2021-08-18 2021-08-18 Outpatient R [facility] [id number] Univers 07:25:00 10:08:00 AMAN Elena o f [facility] 2021-08-18 2021-08-18 Surgery [facility] 1.2.840.114 [id number] Univers 09:24:00 10:01:00 Aman elena [id number] ity of [place] 4[place]2.[place].2.[place] [id number] [facility] 020 Branch 2021-08-16 2021-08-[address] [facility] [id number] Univers 11:30:00 11:30:00 AMAN Elena o f [facility] 2021-08-16 2021-08-16 Laboratory Only, Adc Test [facility] 1.2.840. 114 [id number] Univers 10:43:57 10:58:57 Only Aman Stacy 350.1.1 3.10 ity of [place]2.[place].2.686 [place] [id number] [facility] 353 Branch 2021-08-16 2021-08-16 Orders Doctor PRAVEEN 1.2.840.114 [id number] Univers 00:00:00 00:00:00 Only Unassigned, ADRIENNE 350.1.13.10 ity of [place] [facility] 4.2.7.2.686 [place] [id number] [facility] 009 Branch Results This patient has no known results.
--- NOTE | 2023-04-08 19:50 | RAD REPORT ---
EXAM DESCRIPTION: [place] Single View04/08/2023 7:43 pm CLINICAL HISTORY: cough COMPARISON: January 2023 FINDINGS: The lungs appear clear of acute infiltrate. The heart is normal size IMPRESSION: No acute abnormalities displayed
[2023-04-08] MEDS ORDERED: NA CHLORIDE 0.9% 100 ML ONE (20:05)
[2023-04-08] MEDS ORDERED: CEFEPIME 2 GM VIAL ONE (20:05)
[2023-04-08] MEDS ORDERED: NA CHLORIDE 0.9% 500 ML ONE ×2 (20:05→22:36)
[2023-04-08 20:19] LABS: Absolute Lymphocytes (CBC) 1.5 K/uL (0.7-4.9); Hematocrit 41.8 % (39.6-49.0); MPV 8.4 fL (7.6-11.3)
[2023-04-08 20:27] LABS: Protime INR 1.09
[2023-04-08 20:32] LABS: Albumin 3.5 g/dL (3.4-5.0); Bilirubin Total 0.3 mg/dL (0.2-1.0); Potassium 3.4 mEq/L (3.5-5.1); Protein, Total 8.5 g/dL (6.4-8.2)
--- NOTE | 2023-04-08 20:43 | ER ---
Nurse's Notes [facility] Name: Grupo Mcdonald Jr Age: 62 yrs Sex: Male : 1960 Arrival Date: 04/08/2023 Time: 18:16 Bed 18 Private MD: Diagnosis: Cellulitis of abdominal wall Presentation: 04/08 18:38 Chief complaint: Redness and burning of lower abdomen x 2 days, recently treated for hb cellulitis in same area. Coronavirus screen: At this time, the client does not indicate any symptoms associated with coronavirus-19. Ebola Screen: No symptoms or risks identified at this time. Initial Sepsis Screen: Does the patient meet any 2 criteria? No. Patient's initial sepsis screen is negative. Does the patient have a suspected source of infection? No. Patient's initial sepsis screen is negative. Risk Assessment: Do you want to hurt yourself or someone else? Patient reports no desire to harm self or others. Onset of symptoms was April 07, 2023. 18:38 Method Of Arrival: Ambulatory hb 18:38 Acuity: MARTY 3 hb Triage Assessment: 21:58 General: Behavior is calm, cooperative. sg5 Historical: - Allergies: 18:42 Codeine; hb 18:42 Vicodin; hb - Home Meds: 18:42 hydralazine 10 mg Oral tablet 2 tabs once [Active]; hydralazine 50 mg Oral tablet 2 hb times per day [Active]; Metformin Oral [Active]; nifedipine 90 mg Oral tablet, extended release daily [Active]; allopurinol 100 mg Oral tablet once [Active]; colchicine 0.6 mg Oral tablet once [Active]; - PMHx: 18:42 Cellulitis; Gout; Hypertension; lymphedema; Pre Diabetes; Psoriatic Arthritis; stroke; hb - PSHx: 18:42 Appendectomy; hb - Immunization history:: Adult Immunizations up to date. - Social history:: Smoking status: Patient denies any tobacco usage or history of. Screenin:28 [facility] ED Fall Risk Assessment (Adult) History of falling in the last 3 months, sg5 including since admission No falls in past 3 months (0 pts). Abuse screen: Denies threats or abuse. Nutritional screening: No deficits noted. Tuberculosis screening: No symptoms or risk factors identified. Assessment: 21:27 General: Appears in no apparent distress. comfortable. Pain: Complains of pain in sg5 abdomen. Neuro: Level of Consciousness is awake, alert, obeys commands, Oriented to person, place, time, situation, Appropriate for age. Cardiovascular: Capillary refill < 3 seconds. Respiratory: Airway is patent Respiratory effort is even, unlabored. GI: redness to skin. : No deficits noted. EENT: No signs and/or symptoms were reported regarding the EENT system. Derm: Reports redness to skin on abdomen. Musculoskeletal: No deficits noted. Vital Signs: 18:38 BP 145 / 80; Pulse 84; Resp 20; Temp 98.9(O); Pulse Ox 99% on R/A; Weight 195.95 kg; hb Height 6 ft. 0 in. ; Pain 6/10; 21:28 BP 148 / 56; Pulse 78; Resp 18; Pulse Ox 99% on R/A; Pain 2/10; sg5 18:38 Body Mass Index 58.59 (195.95 kg, 182.88 cm) hb 18:38 Pain Scale: Adult hb 21:28 Pain Scale: Adult sg5 ED Course: 18:17 Patient arrived in ED. ts1 18:42 Triage completed. hb 18:45 Arm band placed on. hb 19:11 Noah Daly MD is Attending Physician. bs3 19:45 Chest Single View XRAY In Process Unspecified. EDMS 19:49 Inserted saline lock: 20 gauge in left antecubital area, using aseptic technique. Blood rv1 collected. 20:01 Blood Culture Adult (2) Sent. rv1 20:01 CBC with Diff Sent. rv1 20:01 CMP Sent. rv1 20:01 Lactate w/ 2H reflex if indic. Sent. rv1 20:01 Protime (+inr) Sent. rv1 20:01 Ptt, Activated Sent. rv1 20:42 Patricio Barnes is Hospitalizing Provider. bs3 20:52 Sienna Dang, DIANA is Primary Nurse. sg5 21:28 Patient has correct armband on for positive identification. Bed in low position. Call sg5 light in reach. Side rails up X 1. Valuables Left with patient. 21:57 No provider procedures requiring assistance completed. Patient admitted, IV remains in sg5 place. Administered Medications: 20:06 Drug: NS 0.9% IV 500 ml Route: IV; Rate: 1 bolus; Site: left antecubital; kd3 21:58 Follow up: IV Status: Completed infusion sg5 20:06 Drug: Cefepime IVPB 1 grams Route: IVPB; Rate: 200 ml/hr; Infused Over: 30 mins; Site: kd3 left antecubital; 21:59 Follow up: IV Status: Completed infusion sg5 21:49 Drug: Ondansetron IVP 4 mg Route: IVP; Site: right antecubital; 5 Medication: 21:28 VIS not applicable for this client. 5 Outcome: 20:43 Decision to Hospitalize by Provider. bs3 21:57 Admitted to Med/surg accompanied by tech, via wheelchair, room 231, Report called to [facility] Nurse Sienna 21:58 Condition: good [facility] 21:58 Instructed on the need for admit. 21:59 Patient left the ED. 5 Signatures: Dispatcher [employer] EDAnh Laird RN RN hb Doucette, Kyli, RN RN kd3 Noah Daly MD MD bs3 Katerin Bailon rv1 Sienna Dang RN RN sg5 Alyx Ziegler, PAS PAS ts1
--- NOTE | 2023-04-08 20:43 | EDPHYS ---
Physician Documentation [facility] Name: Grupo Mcdonald Jr Age: 62 yrs Sex: Male : 1960 Arrival Date: 04/08/2023 Time: 18:16 Bed 18 Private MD: ED Physician Noah Daly HPI: 04/08 20:24 This 62 yrs old Male presents to ER via Ambulatory with complaints of bs3 CELLULITUS ON STOMACH. 20:24 History of hypertension lymphedema prediabetes history of multiple episodes of bs3 abdominal wall cellulitis presents with sudden onset of left lower abdominal wall redness warmth and swelling he notes associated fevers and chills today denies any trauma denies any nausea vomiting chest pain shortness of breath or anything is bothering him nothing makes his symptoms better or worse. Historical: - Allergies: 18:42 Codeine; hb 18:42 Vicodin; hb - Home Meds: 18:42 hydralazine 10 mg Oral tablet 2 tabs once [Active]; hydralazine 50 mg Oral tablet 2 hb times per day [Active]; Metformin Oral [Active]; nifedipine 90 mg Oral tablet, extended release daily [Active]; allopurinol 100 mg Oral tablet once [Active]; colchicine 0.6 mg Oral tablet once [Active]; - PMHx: 18:42 Cellulitis; Gout; Hypertension; lymphedema; Pre Diabetes; Psoriatic Arthritis; stroke; hb - PSHx: 18:42 Appendectomy; hb - Immunization history:: Adult Immunizations up to date. - Social history:: Smoking status: Patient denies any tobacco usage or history of. ROS: 20:24 Constitutional: +fever/chills bs3 20:24 All other systems are negative. Exam: 20:24 Constitutional: This is a well developed, well nourished patient who is awake, alert, bs3 and in no acute distress. Head/Face: Normocephalic, atraumatic. Eyes: Pupils equal round and reactive to light, extra-ocular motions intact. Lids and lashes normal. Neck: Trachea midline, no thyromegaly, no neck stiffness Chest/axilla: Normal chest wall appearance and motion. Nontender with no deformity. No lesions are appreciated. Cardiovascular: Regular rate and rhythm with a normal S1 and S2. symmetric pulses in upper extremities Respiratory: Lungs have equal breath sounds bilaterally, clear to auscultation, no respiratory distress Abdomen/GI: soft, redness in lower abdomen, tender and warm MS/ Extremity: Pulses equal, no cyanosis. Neurovascular intact. Full, normal range of motion. Neuro: Awake and alert, GCS 15, oriented to person, place, time, and situation. Cranial nerves II-XII grossly intact. Motor strength 5/5 in all extremities. Sensory grossly intact. Vital Signs: 18:38 BP 145 / 80; Pulse 84; Resp 20; Temp 98.9(O); Pulse Ox 99% on R/A; Weight 195.95 kg; hb Height 6 ft. 0 in. ; Pain 6/10; 21:28 BP 148 / 56; Pulse 78; Resp 18; Pulse Ox 99% on R/A; Pain 2/10; sg5 18:38 Body Mass Index 58.59 (195.95 kg, 182.88 cm) hb 18:38 Pain Scale: Adult hb 21:28 Pain Scale: Adult sg5 MDM: 19:02 Patient medically screened. bs3 20:24 Data reviewed: vital signs, nurses notes. ED course: Patient with likely abdominal wall bs3 cellulitis given his morbid obesity his multiple medical problems he has high risk of outpatient failure will admit for IV antibiotics will screen for sepsis. 20:42 ED course: labs notable for elevatd crp, slightly elevated creatine, lactate normal, bs3 will admit. d/w hospitalist who agreesw with plan. 04/08 19:27 Order name: Blood Culture Adult (2) 3 04/08 19:27 Order name: CBC with Diff; Complete Time: 20:29 3 04/08 19:27 Order name: CMP; Complete Time: 20:40 bs3 04/08 19:27 Order name: Lactate w/ 2H reflex if indic.; Complete Time: 20:40 3 04/08 19:27 Order name: Protime (+inr); Complete Time: 20:29 3 04/08 19:27 Order name: Ptt, Activated; Complete Time: 20:29 3 04/08 19:27 Order name: Urinalysis w/ reflexes bs3 04/08 19:27 Order name: CRP; Complete Time: 20:40 3 04/08 19:27 Order name: Chest Single View XRAY; Complete Time: 20:08 bs3 04/08 19:27 Order name: EKG; Complete Time: 19:28 bs3 04/08 19:27 Order name: Accucheck bs3 04/08 19:27 Order name: Cardiac monitoring 3 04/08 19:27 Order name: EKG - Nurse/Tech; Complete Time: 20:10 3 04/08 19:27 Order name: IV Saline Lock - Large Bore; Complete Time: 20:01 bs3 04/08 19:27 Order name: Labs collected and sent; Complete Time: 20:01 bs3 04/08 19:27 Order name: O2 Per Protocol bs3 04/08 19:27 Order name: O2 Sat Monitoring bs3 04/08 19:27 Order name: Vital Signs bs3 Administered Medications: 20:06 Drug: NS 0.9% IV 500 ml Route: IV; Rate: 1 bolus; Site: left antecubital; kd3 21:58 Follow up: IV Status: Completed infusion sg5 20:06 Drug: Cefepime IVPB 1 grams Route: IVPB; Rate: 200 ml/hr; Infused Over: 30 mins; Site: kd3 left antecubital; 21:59 Follow up: IV Status: Completed infusion sg5 21:49 Drug: Ondansetron IVP 4 mg Route: IVP; Site: right antecubital; sg5 Disposition Summary: 04/08/23 20:43 Hospitalization Ordered Hospitalization Status: Inpatient Admission bs3 Provider: Patricio Barnes bs3 [facility] bs3 Condition: Stable bs3 Problem: new bs3 Symptoms: have improved bs3 Bed/Room Type: Standard 3 Room Assignment: 231(04/08/23 21:05) kd3 Diagnosis - Cellulitis of abdominal wall bs3 Forms: - Medication Reconciliation Form bs3 - SBAR form bs3 Signatures: Dispatcher [employer] EDAnh Laird RN RN hb Doucette, Kyli, RN RN kd3 Noah Daly MD MD bs3 Erinn Hoopre PA-C PACj sb4 Sienna Dang RN RN sg5 Corrections: (The following items were deleted from the chart) 21:05 20:43 bs3 kd3
[2023-04-08] MEDS ORDERED: ONDANSETRON 4 MG/2 ML VIAL IV PRN (21:51)
[2023-04-08] MEDS ORDERED: ONDANSETRON 4 MG/2 ML VIAL ONE (21:51)
[2023-04-08] MEDS ORDERED: VANCOMYCIN 1 GM in NA CHLORIDE 0.9% 250 ML IVPB SCH (22:00)
--- NOTE | 2023-04-08 22:07 | P.HP ---
Certification for Inpatient Patient admitted to: Inpatient With expected LOS: <2 Midnights Patient will require the following post-hospital care: None Practitioner: I am a practitioner with admitting privileges, knowledge of patient current condition, hospital course, and medical plan of care. Services: Services provided to patient in accordance with Admission requirements found in Title 42 Section 412.3 of the Code of Federal Regulations Patient History Date of Service: 04/09/23 Reason for admission: Abdominal Wall Cellulitus History of Present Illness: Mr. Mcdonald is a 62-year-old male with past medical history of psoriatic arthritis, gout, hypertension, and previous CVA who presented to the emergency department with lower abdominal wall redness and pain. He was found to have cellulitus. He was admitted about 2 months ago for the same cellulitus location, was septic, and required broad spectrum antibiotics. He states this also happened in 2020. Since his dispo in January 2023, he has not had any issues. He states the redness and pain began yesterday, he started to feel nauseous and feverish. Today, his vitals are stable. Labs are remarkable for mild SAMIRA with creatinine 1.4, BUN 34, CRP 120. He was started on vancomycin and cefepime in the emergency department. Given his history of this cellulitus causing sepsis, ED provider wishes to admit patient for further evaluation and management of abdominal wall cellulitis. Allergies codeine Allergy (Verified 10/25/17 09:11) Shortness of breath acetaminophen [From Vicodin] Adverse Reaction (Intermediate, Verified 03/08/13 22:45) Shortness of breath hydrocodone bitartrate [From Vicodin] Adverse Reaction (Intermediate, Verified 03/08/13 22:45) Shortness of breath Home medications list reviewed: Yes Home Medications: Colchicine [Colcrys *] 0.6 mg PO SEECOM PRN 02/14/23 Nifedipine [Nifedipine ER] 90 mg PO BEDTIME 02/14/23 Olmesartan/Hydrochlorothiazide [Olmesartan-Hctz 40-25 mg Tab] 1 tab PO DAILY 02/14/23 Allopurinol 300 mg PO DAILY 04/08/23 Hydralazine [Apresoline] 20 mg PO DAILY 04/08/23 - Past Medical/Surgical History Diabetic: No -: HTN -: Chronic lymphedema -: Morbid obesity -: History of asbestosis exposure -: History of CVA -: Gout -: Psoriatic arthritis -: appendectomy -: carpaltunnel surg in L hand -: L knee "clean up" -: vein procedure in Both legs Psychosocial/ Personal History: Patient lives with son. He is a - Family History Mother -: Heart disease, Hypertension Father -: Cancer Notes: lung cancer - Social History Smoking Status: Never smoker Alcohol use: No CD- Drugs: No Caffeine use: Yes Place of Residence: Home Review of Systems 10-point ROS is otherwise unremarkable Integumentary: As per HPI Physical Examination - Vital Signs Temperature: 98.9 F Blood Pressure: 148/56 Pulse: 78 Respirations: 18 Pulse Ox (%): 99 - Physical Exam General: Alert, In no apparent distress, Obese HEENT: Atraumatic, EOMI, Sclerae nonicteric Neck: Supple, 2+ carotid pulse no bruit Respiratory: Clear to auscultation bilaterally, Normal air movement Cardiovascular: Regular rate/rhythm, Normal S1 S2 Gastrointestinal: Normal bowel sounds, No tenderness Musculoskeletal: No tenderness Integumentary: Erythema (cellulitus bilateral lower abdomen), Warmth Neurological: Normal speech, Normal affect - Studies Laboratory Data (last 24 hrs) 04/08/23 19:49: PT 12.0, INR 1.09, APTT 26.4 04/08/23 19:49: Sodium 134 L, Potassium 3.4 L, BUN 34 H, Creatinine 1.40 H, Glucose 104, Total Bilirubin 0.3, AST 14 L, ALT 24, Alkaline Phosphatase 71 04/08/23 19:49: WBC 7.30, Hgb 13.9, Hct 41.8, Plt Count 236 Assessment and Plan - Problems (Diagnosis) (1) Abdominal wall cellulitis Current Visit: Yes Status: Acute (2) HTN (hypertension) Current Visit: Yes Status: Chronic Qualifiers: Hypertension type: primary hypertension Qualified Code(s): I10 - Essential (primary) hypertension (3) Morbid (severe) obesity due to excess calories Current Visit: Yes Status: Chronic (4) SAMIRA (acute kidney injury) Current Visit: Yes Status: Acute - Plan Patient is admitted for further management of abdominal wall cellulitus. No sepsis criteria met at this time. Blood cultures were obtained in ED. Continue vanc and cefepime for now given his history of this cellulitus causing sepsis. IV hydration for SAMIRA. Recheck renal function in morning. Monitor and replete electrolytes per protocol. Reconcile and continue home medications. Lovenox for VTE prophylaxis. Full code. Discharge Plan: Home Plan to discharge in: 48 Hours - Advance Directives Does patient have a Living Will: No Does patient have a Durable POA for Healthcare: No - Code Status/Comfort Care Code Status Assessed: Yes Code Status: Full Code Physician Review: Patient Assessed, Agree with Above Assessment and Plan Critical Care: No Time Spent Managing Pts Care (In Minutes): 50
[2023-04-08] MEDS ORDERED: VANCOMYCIN 1 GM/VIAL ONE (22:36)
[2023-04-08] MEDS: VANCOMYCIN 2 GM in NA CHLORIDE 0.9% 500 ML IVPB SCH (23:06)
[2023-04-09 00:10] LABS: Specific Gravity 1.025 (1.005-1.030); Urine Bacteria None Seen /HPF (<20); Urine Bilirubin NEGATIVE (Negative); Urine Blood Negative (Negative); Urine Clarity Clear (Clear); Urine Color Yellow (Yellow); Urine Glucose NEGATIVE (Negative); Urine Mucus Slight /HPF (None Seen); Urine Protein TRACE (Negative); Urine RBC <5 /HPF (None Seen); Urine Urobilinogen Normal (Normal); Urine pH 5.5 (5.0-7.0)
[2023-04-09] MEDS: MORPHINE 2 MG/ML SYR IV PRN ×3 (00:44→21:57)
[2023-04-09] MEDS: NA CHLORIDE 0.9% 1,000 ML IV SCH ×2 (05:56→16:51)
[2023-04-09 06:27] LABS: Absolute Lymphocytes (CBC) 1.2 K/uL (0.7-4.9); Hematocrit 38.9 % (39.6-49.0); Lymphocytes % 21.6 % (15.3-44.8); MCV 88.9 fL (80-100); MPV 8.3 fL (7.6-11.3); RBC Red Blood Cell Count 4.37 M/uL (4.33-5.43)
[2023-04-09 06:58] LABS: Phosphorus 3.2 mg/dL (2.5-4.9); Potassium 3.5 mEq/L (3.5-5.1); Thyroid Stimulating Hormone 2.51 uIU/mL (0.358-3.740)
[2023-04-09] MEDS: hydroCHLOROthiazide 25 MG TAB PO SCH (09:00)
[2023-04-09] MEDS ORDERED: POTASSIUM CL SA 10 MEQ TAB PO ONE (09:19)
[2023-04-09] MEDS: ENOXAPARIN 40 MG/0.4 ML SQ SCH (09:32)
[2023-04-09] MEDS: CEFEPIME 1 GM in NA CHLORIDE 0.9% 100 ML IV SCH ×2 (09:32→21:25)
[2023-04-09] MEDS: HYDRALAZINE HCL 10 MG TABLET PO SCH (09:32)
[2023-04-09] MEDS: allopurinoL 300 MG TAB PO SCH (09:33)
[2023-04-09] MEDS: VALSARTAN 160 MG TAB PO SCH (09:33)
[2023-04-09] MEDS: Mupirocin NASAL 2 APPL/1 GM TUBE NAS SCH ×2 (09:33→21:25)
--- NOTE | 2023-04-09 15:44 | P.PN ---
Subjective Date of Service: 04/09/23 Chief Complaint: Abdominal Wall Cellulitus Patient reports improvement in his abdominal wall pain and redness. He has had no fever. No other complaint. Physical Examination - Vital Signs Temperature: 97.6 F Blood Pressure: 127/60 Pulse: 70 Respirations: 18 Pulse Ox (%): 96 - Physical Exam General: Alert, In no apparent distress, Other (Morbidly obese) HEENT: Mucous membr. moist/pink, Sclerae nonicteric Neck: Supple, JVD not distended Respiratory: Clear to auscultation bilaterally, Normal air movement Cardiovascular: Regular rate/rhythm, Normal S1 S2, No murmurs Gastrointestinal: Normal bowel sounds, Soft and benign, Non-distended, No tenderness, Other (Lower abdominal wall edema) Musculoskeletal: No swelling Integumentary: No rashes, No cyanosis Neurological: Normal strength at 5/5 x4 extr, Cranial nerves 3-12 intact - Studies Laboratory Data (last 24 hrs) 04/08/23 19:49: PT 12.0, INR 1.09, APTT 26.4 04/08/23 19:49: Sodium 134 L, Potassium 3.4 L, BUN 34 H, Creatinine 1.40 H, Glucose 104, Total Bilirubin 0.3, AST 14 L, ALT 24, Alkaline Phosphatase 71 04/08/23 19:49: WBC 7.30, Hgb 13.9, Hct 41.8, Plt Count 236 Assessment And Plan - Current Problems (Diagnosis) (1) Abdominal wall cellulitis Current Visit: Yes Status: Acute (2) HTN (hypertension) Current Visit: Yes Status: Chronic Qualifiers: Hypertension type: primary hypertension Qualified Code(s): I10 - Essential (primary) hypertension (3) Morbid (severe) obesity due to excess calories Current Visit: Yes Status: Chronic (4) Gout Current Visit: Yes Status: Acute - Plan Abdominal wall cellulitis is improving. Continue IV cefepime and IV vancomycin Start IV Lasix for abdominal wall edema. Follow cultures. Serial examination. Continue home medications for hypertension and gout.
[2023-04-09] MEDS: VANCOMYCIN 2 GM in NA CHLORIDE 0.9% 500 ML IVPB SCH (16:51)
--- NOTE | 2023-04-09 17:33 | EKG ---
Test Date: 2023-04-08 Test Time: 20:09:10 [employer] Car Clerk: RV MEASUREMENT RESULTS: Intervals: Rate: 74 SD: 332 QRSD: 174 QT: 430 QTc: 477 [place]: P: 78 SD: 332 QRS: 10 T: 1 INTERPRETIVE STATEMENTS: Sinus rhythm with 1st degree AV block Right bundle branch block Abnormal ECG Compared to ECG 02/13/2023 19:37:08 No significant changes Electronically Signed On 04-09-23 17:32:54 CDT by Omer Yan
[2023-04-09] MEDS ORDERED: NIFEDIPINE XL 90 MG TABLET PO SCH (21:00)
[2023-04-10 01:09] VITALS: BMI 8416.5
[2023-04-10] MEDS: NA CHLORIDE 0.9% 1,000 ML IV SCH ×2 (04:03→08:00)
[2023-04-10 05:26] LABS: Potassium 3.4 mEq/L (3.5-5.1)
[2023-04-10] MEDS ORDERED: POTASSIUM CL SA 10 MEQ TAB PO ONE (09:00)
[2023-04-10] MEDS: CEFEPIME 1 GM in NA CHLORIDE 0.9% 100 ML IV SCH (09:05)
[2023-04-10] MEDS: ENOXAPARIN 40 MG/0.4 ML SQ SCH (09:06)
[2023-04-10] MEDS: HYDRALAZINE HCL 10 MG TABLET PO SCH (09:06)
[2023-04-10] MEDS: VALSARTAN 160 MG TAB PO SCH (09:07)
[2023-04-10] MEDS: hydroCHLOROthiazide 25 MG TAB PO SCH (09:07)
[2023-04-10] MEDS: Mupirocin NASAL 2 APPL/1 GM TUBE NAS SCH (09:08)
[2023-04-10] MEDS: allopurinoL 300 MG TAB PO SCH (09:08)
[2023-04-10 09:09] VITALS: BP 165/74
--- NOTE | 2023-04-10 09:09 | P.DS ---
Admission Date: 04/08/23 Discharge Date: 04/10/23 Disposition: ROUTINE DISCHARGE Discharge Condition: FAIR Reason for Admission: Abdominal Wall Cellulitus - Problems (1) Abdominal wall cellulitis Current Visit: Yes Status: Acute (2) HTN (hypertension) Current Visit: Yes Status: Chronic Qualifiers: Hypertension type: primary hypertension Qualified Code(s): I10 - Essential (primary) hypertension (3) Morbid (severe) obesity due to excess calories Current Visit: Yes Status: Chronic (4) Gout Current Visit: Yes Status: Acute Brief History of Present Illness: Mr. Mcdonald is a 62-year-old male with past medical history of psoriatic arthritis, gout, hypertension, and previous CVA who presented to the emergency department with lower abdominal wall redness and pain. He was found to have cellulitus. He was admitted about 2 months ago for the same cellulitus location, was septic, and required broad spectrum antibiotics. He states this also happened in 2020. Since his dispo in January 2023, he has not had any issues. He states the redness and pain began yesterday, he started to feel nauseous and feverish. Labs are remarkable for mild SAMIRA with creatinine 1.4, BUN 34, CRP 120. He was started on vancomycin and cefepime in the emergency department. Given his history of this cellulitus causing sepsis, Patient admitted for further evaluation and management of abdominal wall cellulitis. Hospital Course: Patient admitted to the medical floor and treated with IV cefepime and vancomycin. He was also treated with IV Lasix for abdominal wall edema. The abdominal wall erythema significantly improved with treatment. Abdominal wall edema and lower extremity edema also improved with IV Lasix. Patient has been afebrile, no leukocytosis. He is discharged with oral Augmentin and doxycycline as well as oral Lasix. Other home medications resumed on discharge. Vital Signs/Physical Exam: Temp Pulse Resp BP Pulse Ox 96.8 F 63 18 165/74 H 96 04/10/23 04:00 04/10/23 09:07 04/10/23 04:00 04/10/23 09:07 04/10/23 04:00 General: Alert, In no apparent distress, Oriented x3, Obese (Morbidly obese) HEENT: Mucous membr. moist/pink Neck: JVD not distended Respiratory: Clear to auscultation bilaterally, Normal air movement Cardiovascular: No edema, Regular rate/rhythm, Normal S1 S2 Gastrointestinal: Normal bowel sounds, Soft and benign, Non-distended, No tenderness Musculoskeletal: No swelling Integumentary: No rashes Neurological: Normal strength at 5/5 x4 extr Laboratory Data at Discharge: WBC 5.80 thou/uL (4.3-10.9) 04/09/23 06:13 Hgb 13.2 g/dL (13.6-17.9) L 04/09/23 06:13 Hct 38.9 % (39.6-49.0) L 04/09/23 06:13 Plt Count 227 thou/uL (152-406) 04/09/23 06:13 PT 12.0 SECONDS (9.5-12.5) 04/08/23 19:49 INR 1.09 04/08/23 19:49 APTT 26.4 SECONDS (24.3-36.9) 04/08/23 19:49 Sodium 138 mEq/L (136-145) D 04/10/23 04:50 Potassium 3.4 mEq/L (3.5-5.1) L 04/10/23 04:50 BUN 23 mg/dL (7-18) H 04/10/23 04:50 Creatinine 0.75 mg/dL (0.70-1.30) 04/10/23 04:50 Glucose 88 mg/dL (74-106) 04/10/23 04:50 Phosphorus 3.2 mg/dL (2.5-4.9) 04/09/23 06:13 Magnesium 2.0 mg/dL (1.6-2.4) 04/09/23 06:13 Total Bilirubin 0.3 mg/dL (0.2-1.0) 04/08/23 19:49 AST 14 U/L (15-37) L 04/08/23 19:49 ALT 24 U/L (16-61) 04/08/23 19:49 Alkaline Phosphatase 71 U/L (45-117) 04/08/23 19:49 Triglycerides 93 mg/dL (<150) 04/09/23 06:13 Cholesterol 134 mg/dL (<200) 04/09/23 06:13 HDL Cholesterol 41 mg/dL (40-60) 04/09/23 06:13 Cholesterol/HDL Ratio 3.27 04/09/23 06:13 Home Medications: Colchicine [Colcrys *] 0.6 mg PO SEECOM PRN 02/14/23 Nifedipine [Nifedipine ER] 90 mg PO BEDTIME 02/14/23 Olmesartan/Hydrochlorothiazide [Olmesartan-Hctz 40-25 mg Tab] 1 tab PO DAILY 02/14/23 Allopurinol 300 mg PO DAILY 04/08/23 Hydralazine [Apresoline*] 20 mg PO DAILY 04/08/23 Amox/Clavulanate [Augmentin 875-125 Tab] 875 mg PO BID #14 tab 04/10/23 Doxycycline Hyclate [Vibramycin] 100 mg PO BID #14 cap 04/10/23 Furosemide [Lasix] 40 mg PO BIDL #42 tab 04/10/23 Mupirocin Calcium [Bactroban Nasal*] 1 appl SAE BID #1 tube 04/10/23 Potassium Chloride 20 meq PO DAILY #30 tab 04/10/23 New Medications: Amox/Clavulanate [Augmentin 875-125 Tab] 875 mg PO BID #14 tab Mupirocin Calcium [Bactroban Nasal*] 1 appl SAE BID #1 tube Furosemide [Lasix] 40 mg PO BIDL #42 tab Potassium Chloride 20 meq PO DAILY #30 tab Doxycycline Hyclate [Vibramycin] 100 mg PO BID #14 cap Diet: AHA Activity: Ad bello Followup: Quirino Talbot MD [Primary Care Provider] - 1 Week (Please call to schedule an appointment. ) Time spent managing pt's care (in minutes): 34
[2023-04-10 10:40] VITALS: O2SAT 98
--- NOTE | 2023-04-10 11:49 | RAD REPORT ---
EXAM DESCRIPTION: XR Chest, 1 View CLINICAL HISTORY: The patient is 62 years old and is Male; S/P PICC insertion TECHNIQUE: Single view of the chest. COMPARISON: No relevant prior studies available. FINDINGS: Lungs: No pulmonary vascular congestion or consolidation. Pleural space: Unremarkable. No pneumothorax. Heart: Unremarkable. No cardiomegaly. Mediastinum: Unremarkable. Bones/joints: Degenerative changes in the bilateral humeral joints. No acute rib fracture. Tubes, lines and devices: Right PICC line is in the SVC. IMPRESSION: Right PICC line is in the SVC. Electronically signed by: Sienna Smith MD 04/09/2023 5:56 AM CDT Due to temporary technical issues with the PACS/Fluency reporting system, reports are being signed by the in house radiologist without review as a courtesy to ensure prompt reporting. The interpreting r adiologist is fully responsible for the content of the report.
[2023-04-10 14:11] VITALS: TEMP 97.4
== END 2023-04-10 10:39 | disposition home or self-care (01) ==
LOC: ER 18:16 → 2ND 21:00
PROVIDERS: ADMIT Internal Medicine; ATTEND Internal Medicine
DX: L03.311 Cellulitis of abdominal wall (principal); N17.9 Acute kidney failure, unspecified; L40.50 Arthropathic psoriasis, unspecified; M10.9 Gout, unspecified; E66.01 Morbid (severe) obesity due to excess calories; I10 Essential (primary) hypertension; Z86.73 Personal history of transient ischemic attack (TIA), and cerebral infarction without residual deficits; Z88.6 Allergy status to analgesic agent; Z82.49 Family history of ischemic heart disease and other diseases of the circulatory system; Z80.1 Family history of malignant neoplasm of trachea, bronchus and lung; Z68.43 Body mass index [BMI] 50.0-59.9, adult
CPT/HCPCS: 93005; 36569; 87040 ×2; 85025 ×2; 81001; 80048 ×2; 36415 ×2; 83735; 84100; 85610; 80061; 83605; 85730; 84443; 80202; 80053; 86140; 71045 ×2; J1650 ×2; J0692 ×4; J2270 ×3; J2405; J7040 ×3; J7030 ×3; G0378

== ENCOUNTER 2023-06-25 14:23 | Emergency (ER) | payer OTHER ==
--- OUTSIDE RECORDS SUMMARY | 2023-06-25 14:27 | XMS REPORT | Continuity of Care Document ---
:1960 Author Organization [facility] t Address [address] [facility] [address] [place] [address] Care Team Providers Name Role Phone QUIRINO GARCIA Primary Care Physician Unavailable Christal Abel MD Attending Clinician CHRISTAL ABEL Attending Clinician Unavailable Only, Adc Test Attending Clinician Unavailable Pob, Adc Lab Main Attending Clinician Unavailable Doctor Unassigned, [place] Attending Clinician Unavailable Aman Stacy MD Attending [...] HYDROCOD DRUG Active Unknown-Cmnt Un [place] ONE-ACET -27 ity of AMINOPHE 00:00: [place] N 00 Medical Branch Codeine Propensi Active Nausea 2014-11 Univers ty to and/or 0-20 ity of adverse Vomiting 00:00: [place] reaction 00 Medical s to Branch drug CODEINE DRUG Active Med N/V 2014-11 Univers INGREDI 0-20 ity of 00:00: [address] Social History Social Habit Start Date Stop Date Quantity Comments Source Exposure to Not sure [facility] SARS-CoV-2 [facility] (event) [place] Alcohol intake 2021-11-02 2021-11-02 Current [facility] 00:00:00 00:00:00 non-drinker of [facility] alcohol [place] (finding) Tobacco use and 2015-09-08 2015-09-08 Never used Universit y of exposure 00:00:00 00:00:00 [facility] Sex Ass[birth year] At [birth year] Universit y of 00:00:00 00:00:00 [facility] Smoking Status Start Date Stop Date Source Never smoker [facility] Medications Ordered Filled Start Stop Current Ordering Indication Dosage Frequency Signature Comments Components Source Medication Medication Date Date Medication? Clinician (SIG) Name Name water for 2020-11 Yes PRN, Univers irrigation 2-16 Starting ity o f irrigation 15:49: on [facility] solution 00 11/04/21 Medical at 09, [place] Until Discontinu ed, Routine, Intra-op neomycin-po 2020-11 Yes PRN, Univer s lymyxin-dex 2-16 Starting ity of amethasone 15:49: on [facility] (MAXITROL) 11/04/21 Medic al 3.[address] [place] [address] mg/g-10,000 Until unit/g-0.1 Discontinu % ed, ophthalmic Routine, ointment Intra-op gentamicin 2020-11 Yes PRN, Univers injection 2-16 Starting ity of 15:49: on [facility] 00 11/04/21 Medical at 09, Branch Until Discontinu ed, AGUILA, Intra-op water for 2020-11- No PRN, Univers irrigation 2-16 -16 Starting ity of irrigation 15:49: 19:36 [facility]50 11/04/21 Medical at 09, [place] Until Mariajose 11/04/21 at 1336, Routine, Intra-op [...] 01-05 Starting ity of VISCO 15:48: on [facility] ELASTIC) 3 00 11/04/21 Medic al %-4 %(0.5 at 0948, Branch mL) 1 % Until (0.55 mL) Discontinu intraocular ed, injection Routine, Intra-op dexamethaso 2020-11 Yes [facility] of (DECADRON 15:48: on [facility] PHOSPHATE) 00 11/04/21 Medic al injection at 0948, Branch Until Discontinu ed, Routine, Intra-op NaCl 0.9% 2020-11 Yes PRN, Univers (NS) 01-05 Starting ity of injection 15:48: on Mariajose [place] 00 11/04/21 Medical at 0948, Branch Until Discontinu ed, Routine, Intra-op DUOVISC 2020-11- No PRN, Univers (DUOVISC 01-05 Starting ity of VISCO 15:48: 19:36 on [facility] [place] ELASTIC) 3 00 :50 11/04/21 Medic al %-4 %(0.5 at 0948, Branch mL) 1 % Until Mariajose (0.55 mL) 11/04/21 intraocular at 1336, injection Routine, Intra-op dexamethaso 2020-11- No [facility]N, [facility] Starting ity of (DECADRON 15:48: 19:36 on [facility] PHOSPHATE) 00 :50 11/04/21 Medic al injection at 0948, Branch Until Mariajose 12/16/21 at 1336, Routine, Intra-op NaCl 0.9% 2020-11- No PRN, Univers (NS) 2-11-04 Starting ity of injection 15:48: 19:36 on [facility] 00 :50 11/04/21 Medical at 0948, Branch Until Mariajose 11/04/21 at 1336, Routine, Intra-op ceFAZolin 2020-11 Yes PRN, Univers (ANCEF) 2-16 Starting ity of injection 15:47: on [facility] 00 11/04/21 Medical at 0947, Branch Until Discontinu ed, AGUILA, Intra-op tetracaine 2020-11 Yes PRN, Univers (PONTOCAINE 2-16 Starting ity of ) 0.5 % 15:47: on [facility] ophthalmic 00 11/04/21 Medic al drops at 0947, Branch Until Discontinu ed, Routine, Intra-op ceFAZolin 2020-11- No PRN, Univers (ANCEF) 01-05 Starting ity of injection 15:47: 19:36 on [facility] 00 :50 21 Medical at 0947, Branch Until [facility] 11/04/21 at 1336, AGUILA, Intra-op tetracaine 2020-11- No PRN, Univer s (PONTOCAINE 01-05 Starting ity of ) 0.5 % 15:47: 19:36 on [facility] ophthalmic 00 :50 11/04/21 Medic al drops at 0947, Branch Until Mariajose 11/04/21 at 1336, Routine, Intra-op eye block 2020-11 Yes PRN, Univers syringe 11 16 Starting ity o f mL 15:46: on [facility] 00 11/04/21 Medical at 0946, Branch Until Discontinu ed, Intra-op eye block 2020-11- No PRN, Univers syringe 11 -11-04 Starting ity of mL 15:46: 19:36 on [facility] 00 :50 21 Medical at 0946, Branch Until Mariajose 11/04/21 at 1336, Intra-op EPINEPHrine 2020-11 Yes PRN, Univer s (PF) 2-16 Starting ity of 1:1,000 (1 15:45: on Mariajose [place] mg/mL) 00 11/04/21 Medical (ADRENALIN at 0945, [...] by mouth ity of tablet 11:31: daily. [address] lisinopril 2020-11 Yes 20mg Take 20 mg U nivers (PRINIVIL,Z 2-16 by mouth 2 it y of ESTRIL) 20 11:31: (two) [place] mg tablet 49 times Medical daily. Branch verapamil 2020-11 Yes 120mg Take 120 Uni vers (ISOPTIN) 2-16 mg by ity of 120 mg 11:31: mouth 2 [place] tablet 49 (two) Medical times [place] daily. ALBUTEROL 2020-11 Yes Inhale. Unive rs INHALE 2-16 ity of 11:31: [address] aspirin 81 2020-11 Yes 81mg Take 81 mg U nivers mg EC 2-16 by mouth ity of tablet 11:31: daily. [address] lisinopril 2020-11 Yes 20mg Take 20 mg U nivers (PRINIVIL,Z 2-16 by mouth 2 it y of ESTRIL) 20 11:31: (two) [place] mg tablet 49 times Medical daily. Branch verapamil 2020-11 Yes 120mg Take 120 Uni vers (ISOPTIN) 2-16 mg by ity of 120 mg 11:31: mouth 2 [place] tablet 49 (two) Medical times [place] daily. ALBUTEROL 2020-11 Yes Inhale. Unive rs INHALE 2-16 ity of 11:31: [address] aspirin 81 2020-11 Yes 81mg Take 81 mg U nivers mg EC 2-16 by mouth ity of tablet 11:31: daily. [address] lisinopril 2020-11 Yes 20mg Take 20 [...] Unive rs INHALE 2-16 ity of 11:31: [address] simethicone Yes PRN, Univer s (GAS [...] by mouth ity of tablet 10:12: daily. [address] lisinopril Yes 20mg Take 20 mg U nivers (PRINIVIL,Z 9-29 by mouth 2 it y of ESTRIL) 20 10:12: (two) [place] mg tablet 34 times Medical daily. Branch verapamil 0 Yes 120mg Take 120 Uni vers (ISOPTIN) 9-29 mg by ity of 120 mg 10:12: mouth 2 [place] tablet 34 (two) Medical times [place] daily. aspirin 81 0 Yes 81mg Take 81 mg U nivers mg EC 9-29 by mouth ity of tablet 10:12: daily. [address] lisinopril Yes 20mg Take 20 mg U nivers (PRINIVIL,Z 9-29 by mouth 2 it y of ESTRIL) 20 10:12: (two) [place] mg tablet 34 times Medical daily. Branch verapamil Yes 120mg Take 120 Uni vers (ISOPTIN) 9-29 mg by ity of 120 mg 10:12: mouth 2 [place] tablet 34 (two) Medical times [place] daily. aspirin 81 0 Yes 81mg Take 81 mg U nivers mg EC 9-29 by mouth ity of tablet 10:12: daily. [address] lisinopril Yes 20mg Take 20 mg U nivers (PRINIVIL,Z 9-29 by mouth 2 it y of ESTRIL) 20 10:12: (two) [place] mg tablet 34 times Medical daily. Branch verapamil Yes 120mg Take 120 Uni vers (ISOPTIN) 9-29 mg by ity of 120 mg 10:12: mouth 2 [place] tablet 34 (two) Medical times [place] daily. aspirin 81 0 Yes 81mg Take 81 mg U nivers mg EC 9-29 by mouth ity of tablet 10:12: daily. [address] lisinopril Yes 20mg Take 20 mg U nivers (PRINIVIL,Z 9-29 by mouth 2 it y of ESTRIL) 20 10:12: (two) [place] mg tablet 34 times Medical daily. Branch verapamil Yes 120mg Take 120 Uni vers (ISOPTIN) 9-29 mg by ity of 120 mg 10:12: mouth 2 [place] tablet 34 (two) Medical times [place] daily. aspirin 81 2014-11 Yes 81mg Take 81 mg U nivers mg EC 0-22 by mouth ity of tablet 10:44: daily. [address] lisinopril 2014-11 Yes 20mg Take 20 mg U nivers (PRINIVIL,Z 0-22 by mouth 2 it y of ESTRIL) 20 10:44: (two) [place] mg tablet 23 times Medical daily. Branch verapamil 2014-11 Yes 120mg Take 120 Uni vers (ISOPTIN) 0-22 mg by ity of 120 mg 10:44: mouth 2 [place] tablet 23 (two) Medical times [place] daily. aspirin 81 2014-11 Yes 81mg Take 81 mg U nivers mg EC 0-22 by mouth ity of tablet 10:44: daily. [address] lisinopril 2014-11 Yes 20mg Take 20 mg U nivers (PRINIVIL,Z 0-22 by mouth 2 it y of ESTRIL) 20 10:44: (two) [place] mg tablet 23 times Medical daily. Branch verapamil 2014-11 Yes 120mg Take 120 Uni vers (ISOPTIN) 0-22 mg by ity of 120 mg 10:44: mouth 2 [place] tablet 23 (two) Medical times [place] daily. Vital Signs Vital Name Observation Time Observation Value Comments Source Systolic blood 2021-11-04 16:37:00 146 mm[Hg] Univer sity of pressure [facility] Diastolic blood 2021-11-04 16:37:00 69 mm[Hg] Unive rsity of pressure [facility] Oxygen saturation in 2021-11-04 16:37:00 99 /min [facility] Arterial blood by [facility] Pulse oximetry Branch Heart rate 2021-11-04 16:30:00 71 /min [facility] Respiratory rate 2021-11-04 16:30:00 24 /min [facility] Body temperature 2021-11-04 16:11:00 36.89 [place] [facility] Body height 2021-10-26 14:41:00 182.9 cm [facility] Body weight 2021-10-26 14:41:00 204.1 kg [facility] BMI 2021-10-26 14:41:00 61.01 kg/m2 [facility] Systolic blood 2021-11-04 16:37:00 146 mm[Hg] Univer sity of pressure [place] [facility] Diastolic blood 2021-11-04 16:37:00 69 mm[Hg] Unive rsity of pressure [place] [facility] Oxygen saturation in 2021-11-04 16:37:00 99 /min University of Arterial blood by [facility] cj Pulse oximetry Branch Heart rate 2021-11-04 16:30:00 71 /min Universi ty of [place] [facility] Respiratory rate 2021-11-04 16:30:00 24 /min Univ ersity of [place] [facility] Body temperature 2021-11-04 16:11:00 36.89 [place] Univ ersity of [place] [facility] Body height 2021-10-26 14:41:00 182.9 cm Universi ty of [place] [facility] Body weight 2021-10-26 14:41:00 204.1 kg Universi ty of [place] [facility] BMI 2021-10-26 14:41:00 61.01 kg/m2 Universi ty of [place] [facility] Systolic blood 2021-08-18 15:00:00 158 mm[Hg] Univer sity of pressure [place] [facility] Diastolic blood 2021-08-18 15:00:00 90 mm[Hg] Unive rsity of pressure [place] [facility] Heart rate 2021-08-18 15:00:00 75 /min Universi ty of [place] [facility] Respiratory rate 2021-08-18 15:00:00 20 /min Univ ersity of [place] [facility] Oxygen saturation in 2021-08-18 15:00:00 100 /min University of Arterial blood by [facility] Pulse oximetry Branch Body temperature 2021-08-18 14:35:00 37.33 [place] Univ ersity of [place] [facility] Body height 2021-08-16 14:15:00 182.9 cm Universi ty of [place] [facility] Body weight 2021-08-16 14:15:00 204.119 kg Universi ty of [place] [facility] BMI 2021-08-16 14:15:00 61.03 kg/m2 Universi ty of [place] [facility] Systolic blood 2021-08-18 15:00:00 158 mm[Hg] Univer sity of pressure [place] [facility] Diastolic blood 2021-08-18 15:00:00 90 mm[Hg] Unive rsity of pressure [place] [facility] Heart rate 2021-08-18 15:00:00 75 /min [facility] Respiratory rate 2021-08-18 15:00:00 20 /min [facility] Oxygen saturation in 2021-08-18 15:00:00 100 /min [facility] Arterial blood by [facility] Pulse oximetry Branch Body temperature 2021-08-18 14:35:00 37.33 Pal[place] [facility] Body height 2021-08-16 14:15:00 182.9 cm [facility] Body weight 2021-08-16 14:15:00 204.119 kg [facility] BMI 2021-08-16 14:15:00 61.03 kg/m2 [facility] Procedures Procedure Date / Time Performing Source Performed Clinician PHACOEMULSIFICATION OF 2021-11-04 Josiane Sparrow [facility] CATARACT WITH INTRAOCULAR 15:35:00 Bhanu [place] LENS IMPLANT COVID-19 (ID NOW RAPID 2021-11-02 Josiane Sparrow [facility] TESTING) 14:19:00 Bhanu Medical [place] LAB ONLY COVID INTERPRETATION 2021-11-02 Christal Abel [facility] 14:19:00 Bhanu Medical Branch ASSIGNMENT OF BENEFITS 2021-10-29 Doctor Unassigned, [facility] 16:45:12 [place] Medical Branch COLONOSCOPY 2021-08-18 Aman Stacy [facility] 13:44:00 C Medical Branch COLONOSCOPY (ENDO) 2021-08-18 Quirino Garcia [facility] 13:37:11 Medical Branch COLONOSCOPY (ENDO) 2021-08-18 Quirino Garcia [facility] 13:37:11 Medical Branch COVID-19 (ID NOW RAPID 2021-08-16 [facility]) 15:46:00 C Medical Branch ASSIGNMENT OF BENEFITS 2021-08-16 Doctor Unassyobani, [facility] 15:36:54 [place] [facility] EXTERNAL PROVIDER RECORDS 2021-07-21 Doctor Unassigned, [facility] 05:01:00 [place] [facility] EXTERNAL PROVIDER RECORDS 2021-07-21 Doctor Unassigned, [facility] 05:01:00 [place] Medical Branch Encounters Start End Encounter Admission Attending Care Care Encounter Source Date/Time Date/Time Type Type Clinicians Facility Department ID 2021-11-04 2021-11-04 Surgery Josiane [facility] 1.2.840.114 [id number] Univers 10:24:00 11:00:00 Christal TEJADA [id number] i ty of [id number] [id number] [facility] 020 Branch 2021-11-04 2021-11-04 Hospital Josiane [facility] [id number] Univers 08:47:00 10:45:00 Encounter Christal TEJADA [id number] ity of [id number] [id number] [facility] 071 [place] 2021-11-04 2021-11-04 Outpatient R JOSIANE [facility] OPH [id number] Univers 08:47:00 10:45:00 CHRISTAL pizarro [facility] 2021-11-02 2021-11-02 Laboratory Only, Adc Test [facility] 1.2.840. 114 [id number] Univers 08:00:00 08:15:00 Only Christal Abel 350.1.1 3.10 ity euseb[id number] [place] [id number] [address] 2021-11-02 2021-11-02 Outpatient R JOSIANE [facility] [id number] Univers 08:00:00 08:00:00 CHRISTAL pizarro [facility] 2021-10-29 2021-10-29 Named Account Executive Tabby, Adc Lab Main [facility] 1.2.8 40.114 [id number] Univers 10:50:56 11:05:56 Visit Christal Abel 350.1.1 3.10 ity eusebio [id number] [id number] Md dic[address] 2021-10-29 2021-10-29 Outpatient R JOSIANE [facility] [id number] Univers 11:00:00 11:00:00 CHRISTAL pizarro [facility] 2021-10-29 2021-10-29 Orders Doctor MORTON [id number] [id number] Univers 00:00:00 00:00:00 Only Unassigned, ADRIENNE [id number] ity of [place] HOSPITAL [id number] [place] as [id number] [facility] 009 Branch 2021-10-28 2021-10-28 Outpatient R JOSIANE [facility] [id number] Univers 15:45:00 15:45:00 CHRISTAL ity of [facility] 2021-08-18 2021-08-18 [facility] 1.2.840.114 [id number] Univers 07:25:00 10:08:00 Encounter Aman elena [id number] ity of [id number] [id number] [facility] 071 [place] 2021-08-18 2021-08-18 Outpatient R [facility] [id number] Univers 07:25:00 10:08:00 AMAN Elena f [facility] 2021-08-18 2021-08-18 Surgery [facility] 1.2.840.114 [id number] Univers 09:24:00 10:01:00 Aman elena [id number] ity of [place] [id number] [place] [id number] [facility] 020 Branch 2021-08-16 2021-08-16 Outpatient R [facility] [id number] Univers 11:30:00 11:30:00 AMAN Elena f [facility] 2021-08-16 2021-08-16 Laboratory Only, Adc Test [facility] 1.2.840. 114 [id number] Univers 10:43:57 10:58:57 Only Aman Stacy 350.1.1 3.10 ity of [place] [id number] [place] [id number] [facility] 353 Branch 2021-08-16 2021-08-16 Orders Doctor PRAVEEN 1.2.840.114 [id number] Univers 00:00:00 00:00:00 Only Unassigned, ADRIENNE [id number] ity of [place] [facility] 4.2.7.2.686 [place] as [id number] [facility] 009 Branch Results This patient has no known results.
[2023-06-25 15:42] LABS: Absolute Lymphocytes (CBC) 0.9 K/uL (0.7-4.9); Hematocrit 43.6 % (39.6-49.0); Lymphocytes % 11.9 % (15.3-44.8); MCV 90.8 fL (80-100); MPV 8.5 fL (7.6-11.3); Platelets 255 thou/uL (152-406)
[2023-06-25 16:08] LABS: Albumin 3.6 g/dL (3.4-5.0); Bilirubin Direct 0.1 mg/dL (0-0.2); Bilirubin Indirect, Calculated 0.4 mg/dL (0.2-0.8); Bilirubin Total 0.5 mg/dL (0.2-1.0); Magnesium 2.1 mg/dL (1.6-2.4); Potassium 3.8 mEq/L (3.5-5.1); Protein, Total 7.9 g/dL (6.4-8.2); Troponin High Sensitivity 9.9 pg/mL (<58.9)
[2023-06-25 16:25] LABS: Protime INR 1.11
--- NOTE | 2023-06-25 16:25 | RAD REPORT ---
EXAM DESCRIPTION: RAD - Hip Left 2 View - 06/25/2023 3:47 pm CLINICAL HISTORY: Left hip pain FINDINGS: No fracture or dislocation is seen. No significant bone or joint abnormality noted. If the patient continues to have symptoms to suggest an occult fracture MRI would be recommended
[2023-06-25 16:46] LABS: Specific Gravity 1.022 (1.005-1.030); Urine Bilirubin NEGATIVE (Negative); Urine Blood Negative (Negative); Urine Clarity Clear (Clear); Urine Color Yellow (Yellow); Urine Glucose NEGATIVE (Negative)
[2023-06-25 16:47] LABS: Urine Protein NEGATIVE (Negative); Urine Urobilinogen Normal (Normal)
[2023-06-25] MEDS ORDERED: KETOROLAC 30 MG/ML INJ ONE (17:28)
--- NOTE | 2023-06-25 18:22 | EDPHYS ---
Physician Documentation [facility] Name: Grupo Mcdonald Jr Age: 62 yrs Sex: Male : 1960 Arrival Date: 06/25/2023 Time: 14:23 Bed 13 Private MD: ED Physician Rommel Gracia HPI: 06/25 18:47 This 62 yrs old Male presents to ER via Ambulatory with complaints of Hip Pain. kb 19:39 Modifying factors: The symptoms are alleviated by nothing, the symptoms are aggravated kb by nothing. Severity of symptoms: At their worst the symptoms were moderate, in the emergency department the symptoms are unchanged. The patient has not experienced similar symptoms in the past. The patient has not recently seen a physician. 19:40 The patient or guardian reports pain. that occurred at home, sustained from unknown kb reason. The complaints affect the left hip. Onset: The symptoms/episode began/occurred yesterday. Patient reports left hip pain that started yesterday. States he has arthritis but has never been this bad. Denies injury or trauma. States the pain makes him dizzy and nauseous at times. Also reports urinating small amounts over the last few days.. Historical: - Allergies: 14:43 Codeine; mb9 14:43 Vicodin; mb9 - Home Meds: 14:43 allopurinol 100 mg Oral tablet once [Active]; colchicine 0.6 mg Oral tablet once mb9 [Active]; hydralazine 10 mg Oral tablet 2 tabs once [Active]; nifedipine 90 mg Oral tablet, extended release daily [Active]; Metformin Oral [Active]; hydralazine 50 mg Oral tablet 2 times per day [Active]; - PMHx: 14:43 Psoriatic Arthritis; Pre Diabetes; Hypertension; lymphedema; Cellulitis; Gout; stroke; mb9 - PSHx: 14:43 Appendectomy; mb9 - Immunization history:: Adult Immunizations up to date. - Social history:: Smoking status: Patient denies any tobacco usage or history of. ROS: 19:38 Constitutional: Negative for fever, chills, and weight loss. kb 19:38 : Positive for small amounts, difficulty urinating. 19:38 MS/extremity: Positive for pain, of the left hip. 19:38 All other systems are negative. Exam: 19:37 Constitutional: This is a well developed, well nourished patient who is awake, alert, kb and in no acute distress. Head/Face: Normocephalic, atraumatic. ENT: Moist Mucous membranes Cardiovascular: Regular rate and rhythm with a normal S1 and S2. No gallops, murmurs, or rubs. No pulse deficits. Respiratory: Respirations even and unlabored. No increased work of breathing. Talking in full sentences Skin: Warm, dry with normal turgor. Normal color. MS/ Extremity: Pulses equal, no cyanosis. Neurovascular intact. Full, normal range of motion. Neuro: Awake and alert, GCS 15, oriented to person, place, time, and situation. Moves all extremities. Normal gait. 19:37 Abdomen/GI: Inspection: obese Bowel sounds: normal, Palpation: abdomen is soft and non-tender, in all quadrants. Vital Signs: 14:41 BP 126 / 59; Pulse 85; Resp 18; Temp 98; Pulse Ox 98% on R/A; Weight 195.04 kg; Height mb9 6 ft. 0 in. ; Pain 10/10; 14:57 BP 98 / 78 LA Supine (auto/lg); Pulse 76; Resp 18; Pulse Ox 95% on R/A; ko1 15:00 BP 96 / 68 LA Sitting (auto/lg); Pulse 82; Resp 18; Pulse Ox 97% ; ko1 15:05 BP 101 / 72 LA Standing (auto/lg); Pulse 82; Resp 20; Pulse Ox 97% ; ko1 16:00 BP 118 / 72; Pulse 81; Resp 18; Pulse Ox 99% ; ko1 17:00 BP 105 / 50; Pulse 78; Resp 18; Pulse Ox 99% ; ko1 18:17 BP 113 / 78; Pulse 76; Resp 18; Pulse Ox 99% ; ko1 14:41 Body Mass Index 58.32 (195.04 kg, 182.88 cm) mb9 14:41 Pain Scale: Adult mb9 MDM: 14:52 Patient medically screened. kb 18:49 Data reviewed: vital signs, nurses notes. kb 19:38 Differential diagnosis: contusion, fracture, strain, Arthritis, UTI. Counseling: I had kb a detailed discussion with the patient and/or guardian regarding: the historical points, exam findings, and any diagnostic results supporting the discharge/admit diagnosis, lab results, radiology results, the need for outpatient follow up, a family practitioner, to return to the emergency department if symptoms worsen or persist or if there are any questions or concerns that arise at home. ED course: Patient has no chest pain, shortness of breath. Appears comfortable. No abdominal tenderness, no CVA tenderness, no hip tenderness. Patient educated on results and need for follow-up. Patient has appointment with sales supervisor tomorrow.. 06/25 14:59 Order name: Basic Metabolic Panel; Complete Time: 16:08 kb 06/25 14:59 Order name: CBC with Diff; Complete Time: 15:46 kb 06/25 14:59 Order name: Hepatic Function; Complete Time: 16:08 kb 06/25 14:59 Order name: Magnesium; Complete Time: 16:08 kb 06/25 14:59 Order name: Protime (+inr); Complete Time: 16:31 kb 06/25 14:59 Order name: Ptt, Activated; Complete Time: 16:31 kb 06/25 14:59 Order name: Troponin High Sensitivity; Complete Time: 16:08 kb 06/25 14:59 Order name: Urinalysis w/ reflexes; Complete Time: 16:49 kb 06/25 17:29 Order name: Troponin High Sensitivity; Complete Time: 18:21 kb 06/25 14:59 Order name: Hip Left 2 View XRAY; Complete Time: 16:31 kb 06/25 14:59 Order name: EKG; Complete Time: 15:00 kb 06/25 15:47 Order name: EKG; Complete Time: 15:48 kb 06/25 14:59 Order name: EKG - Nurse/Tech; Complete Time: 15:34 kb 06/25 14:59 Order name: IV Saline Lock; Complete Time: 15:34 kb 06/25 14:59 Order name: Labs collected and sent; Complete Time: 15:34 kb 06/25 14:59 Order name: NPO; Complete Time: 15:05 kb 06/25 14:59 Order name: O2 Per Protocol; Complete Time: 15:05 kb 06/25 14:59 Order name: O2 Sat Monitoring; Complete Time: 15:05 kb 06/25 14:59 Order name: Orthostatics; Complete Time: 16:18 kb 06/25 15:46 Order name: Labs - recollect needed: recollect blue top/ hemolyzed; Complete Time: 16:18eb 06/25 15:47 Order name: EKG - Nurse/Tech; Complete Time: 16:18 kb Administered Medications: 17:20 Drug: Ketorolac IVP 30 mg Route: IVP; Site: right antecubital; ko1 Disposition: 19:17 Co-signature as Attending Physician, Rommel Gracia MD I reviewed the patient's care rt provided by the Advanced Practice Provider and agree with the diagnosis and treatment plan. Disposition Summary: 06/25/23 18:22 Discharge Ordered Location: Home kb Condition: Stable kb Diagnosis - Pain in left hip kb - Difficulty urinating kb Followup: kb - With: Emergency Department - When: As needed - Reason: Worsening of condition Followup: kb - With: Private Physician - When: 2 - 3 days - Reason: Recheck today's complaints, Continuance of care, Re-evaluation by your physician Discharge Instructions: - Discharge Summary Sheet kb - Hip Pain kb Forms: - Medication Reconciliation Form kb - Thank You Letter kb - Antibiotic Education kb - Prescription Opioid Use kb - Patient Portal Instructions kb Prescriptions: - Diclofenac Sodium 75 mg Oral tablet,delayed release (DR/EC) - take 1 tablet by ORAL route 2 times per day As needed; 30 tablet; Refills: 0, kb Product Selection Permitted Signatures: Dispatcher [employer] EDMS Marichuy Ragland, DANIELLE-Joseline MACHINE REPAIR PERSON-Shazia Barrera Kathy, RN RN ko1 Tri Smith, RN RN mb9 Rommel Gracia MD MD rt Corrections: (The following items were deleted from the chart) 19:38 18:48 Constitutional: Negative for fever, chills, and weight loss, kb 19:38 18:48 MS/extremity: Positive for pain, of the left hip and anterior aspect of left kb shoulder, kb 19:38 18:48 All other systems are negative, kb kb 19:38 18:48 Constitutional: This is a well developed, well nourished patient who is awake, kb alert, and in no acute distress. Head/Face: Normocephalic, atraumatic. ENT: Moist Mucous membranes Cardiovascular: Regular rate and rhythm with a normal S1 and S2. No gallops, murmurs, or rubs. No pulse deficits. Respiratory: Respirations even and unlabored. No increased work of breathing. Talking in full sentences Abdomen/GI: Soft, non-tender. No distention Back: No spinal tenderness. No costovertebral tenderness. Full range of motion. Skin: Warm, dry with normal turgor. Normal color. Neuro: Awake and alert, GCS 15, oriented to person, place, time, and situation. Moves all extremities. Normal gait. 19:38 18:48 Musculoskeletal/extremity: Extremities: grossly normal except: noted in the kb anterior aspect of left shoulder: decreased ROM, pain, ROM: limited active range of motion, in the anterior aspect of left shoulder, limited active range of motion due to pain, in the anterior aspect of left shoulder, Circulation is intact in all extremities. Sensation intact. Weight bearing: can bear weight with assistance only, uses walker, 19:39 18:49 Differential diagnosis: contusion, fracture, sprain, strain, [facility] 19:39 18:49 Counseling: I had a detailed discussion with the patient and/or guardian regarding: the historical points, exam findings, and any diagnostic results supporting the discharge/admit diagnosis, radiology results, the need for outpatient follow up, a orthopedic surgeon, to return to the emergency department if symptoms worsen or persist or if there are any questions or concerns that arise at home, 19:39 18:47 Patient reports chronic hip pain and need for hip replacement on the left side. States she started falling this morning and caught herself with her left arm causing left shoulder pain. Reports history of injury to rotator cuff on that side. Comes in for left hip and shoulder pain. 19:39 18:49 Details of fall: The patient fell from an upright position, while walking, [facility] :39 18:49 The patient has not recently seen a physician, [facility] : 18:49 The patient has experienced similar episodes in the past, [facility] :39 18:49 Severity of symptoms: At their worst the symptoms were moderate, in the emergency department the symptoms are unchanged, :39 18:49 Onset: The symptoms/episode began/occurred today, [facility] 19:39 18:49 Associated injuries: The patient sustained anterior aspect of left shoulder, painful injury, left hip, painful injury,
--- NOTE | 2023-06-25 18:22 | ER ---
Nurse's Notes [facility] Name: Grupo Mcdonald Jr Age: 62 yrs Sex: Male : 1960 Arrival Date: 06/25/2023 Time: 14:23 Bed 13 Private MD: Diagnosis: Pain in left hip;Difficulty urinating Presentation: 06/25 14:41 Chief complaint: Patient states: "I'm having severe pain in my left pain since last mb9 night, I feel dizzy from the pain and scared I'm going to fall. I have arthritis but this is worse and goes to my back. I have some burning when I pee and it's like dripping out, Now I feel like I have chest pain. I don't know what's going on". Coronavirus screen: At this time, the client does not indicate any symptoms associated with coronavirus-19. Ebola Screen: No symptoms or risks identified at this time. Initial Sepsis Screen: Does the patient meet any 2 criteria? No. Patient's initial sepsis screen is negative. Does the patient have a suspected source of infection? No. Patient's initial sepsis screen is negative. Risk Assessment: Do you want to hurt yourself or someone else? Patient reports no desire to harm self or others. Onset of symptoms was June 25, 2023. 14:41 Method Of Arrival: Ambulatory mb9 14:45 Acuity: MARTY 3 mb9 Triage Assessment: 14:45 General: Appears in no apparent distress. Behavior is cooperative. Pain: Complains of mb9 pain in left hip Pain radiates to left back Pain currently is 10 out of 10 on a pain scale. Quality of pain is described as throbbing. Neuro: Level of Consciousness is awake, alert, obeys commands, Oriented to person, place, time, situation, Appropriate for age Reports dizziness. Cardiovascular: Patient's skin is warm and dry. Respiratory: Airway is patent. : Reports burning with urination. Derm: Skin is pink, warm \\T\\ dry. Musculoskeletal: Range of motion: intact in all extremities. 14:47 Cardiovascular: Reports chest pain. mb9 Historical: - Allergies: 14:43 Codeine; mb9 14:43 Vicodin; mb9 - Home Meds: 14:43 allopurinol 100 mg Oral tablet once [Active]; colchicine 0.6 mg Oral tablet once mb9 [Active]; hydralazine 10 mg Oral tablet 2 tabs once [Active]; nifedipine 90 mg Oral tablet, extended release daily [Active]; Metformin Oral [Active]; hydralazine 50 mg Oral tablet 2 times per day [Active]; - PMHx: 14:43 Psoriatic Arthritis; Pre Diabetes; Hypertension; lymphedema; Cellulitis; Gout; stroke; mb9 - PSHx: 14:43 Appendectomy; mb9 - Immunization history:: Adult Immunizations up to date. - Social history:: Smoking status: Patient denies any tobacco usage or history of. Screenin:05 [facility] ED Fall Risk Assessment (Adult) History of falling in the last 3 months, ko1 including since admission Yes- single mechanical fall (1 pt) Confusion or Disorientation No (0 pts) Intoxicated or Sedated No (0 pts) Impaired Gait Yes (1 pt) Mobility Assist Device Used Yes (1 pt) Altered Elimination No (0 pt) Score/Fall Risk Level 3 or more points = High Risk Oriented to surroundings, Maintained a safe environment, Educated pt \\T\\ family on fall prevention, incl call for assistance when getting out of bed, Assessed \\T\\ reinforced patient's understanding of fall precautions, Provided non-skid footwear, Hourly rounding (assess needs \\T\\ fall precautionary measures) done, Used ambulatory aids as needed (educated on \\T\\ assisted with), Used gait belt as appropriate Remained w/in arm's length of patient and in sight while toileting, Offered frequent toileting (1:1 observation), Remained with patient while ambulating. Abuse screen: Denies threats or abuse. Denies injuries from another. Nutritional screening: No deficits noted. Tuberculosis screening: No symptoms or risk factors identified. Assessment: 15:10 General: Appears in no apparent distress. uncomfortable, Behavior is calm, cooperative, ko1 appropriate for age. Pain: Complains of pain in hips, chest, all over. Neuro: No deficits noted. Cardiovascular: Reports chest pain. Respiratory: No deficits noted. GI: No deficits noted. : Reports pain with urination. EENT: No deficits noted. Derm: No deficits noted. Musculoskeletal: Reports pain in hips, but all over. Vital Signs: 14:41 BP 126 / 59; Pulse 85; Resp 18; Temp 98; Pulse Ox 98% on R/A; Weight 195.04 kg; Height mb9 6 ft. 0 in. ; Pain 10/10; 14:57 BP 98 / 78 LA Supine (auto/lg); Pulse 76; Resp 18; Pulse Ox 95% on R/A; ko1 15:00 BP 96 / 68 LA Sitting (auto/lg); Pulse 82; Resp 18; Pulse Ox 97% ; ko1 15:05 BP 101 / 72 LA Standing (auto/lg); Pulse 82; Resp 20; Pulse Ox 97% ; ko1 16:00 BP 118 / 72; Pulse 81; Resp 18; Pulse Ox 99% ; ko1 17:00 BP 105 / 50; Pulse 78; Resp 18; Pulse Ox 99% ; ko1 18:17 BP 113 / 78; Pulse 76; Resp 18; Pulse Ox 99% ; ko1 14:41 Body Mass Index 58.32 (195.04 kg, 182.88 cm) mb9 14:41 Pain Scale: Adult mb9 ED Course: 14:36 Patient arrived in ED. im 14:45 Triage completed. mb9 14:45 Arm band placed on. mb9 14:52 Marichuy Ragland FNP-C is [facility]. kb 14:52 Rommel Gracia MD is Attending Physician. kb 14:52 Dyan Chaves, DIANA is Primary Nurse. ko1 15:05 Patient has correct armband on for positive identification. Bed in low position. Call ko1 light in reach. Provided Education on: NA. hotel front office manager on. Pulse ox on. Door closed. Noise minimized. Warm blanket given. 15:25 EKG done, by ED staff, reviewed by Marichuy BECERRA. ko1 15:30 Inserted saline lock: 20 gauge in right antecubital area, using aseptic technique. ko1 Blood collected. 15:34 Basic Metabolic Panel Sent. ko1 15:34 CBC with Diff Sent. ko1 15:34 Hepatic Function Sent. ko1 15:34 Magnesium Sent. ko1 15:34 Protime (+inr) Sent. ko1 15:34 Ptt, Activated Sent. ko1 15:34 Troponin High Sensitivity Sent. ko1 15:48 Hip Left 2 View XRAY In Process Unspecified. EDMS 16:31 Urinalysis w/ reflexes Sent. ko1 17:51 Troponin High Sensitivity Sent. ko1 18:34 No provider procedures requiring assistance completed. IV discontinued, intact, mb9 bleeding controlled, No redness/swelling at site. Pressure dressing applied. Administered Medications: 17:20 Drug: Ketorolac IVP 30 mg Route: IVP; Site: right antecubital; ko1 Medication: 15:05 VIS not applicable for this client. ko1 Outcome: 18:22 Discharge ordered by . hao 18:34 Discharged to home ambulatory. mb9 18:34 Condition: stable 18:34 Discharge instructions given to patient, Instructed on discharge instructions, follow up and referral plans. Demonstrated understanding of instructions, follow-up care, medications, Prescriptions given X 1. 18:34 Patient left the ED. mb9 Signatures: Dispatcher [employer] EDMS Marichuy Ragland, DANIELLE-C MEAT CUTTER-Dyan Arrington, RN RN ko1 Tri Smith RN RN mb9 Lashon Rosenberg Corrections: (The following items were deleted from the chart) 14:45 14:41 Chief complaint: Patient states: "I'm having severe pain in my left pain since mb9 last night, I feel dizzy from the pain and scared i'm going to fall. I have arthritis but this is worse" mb9 14:46 14:41 Pulse 85bpm; Resp 18bpm; Pulse Ox 98% RA; Temp 98F; 195.04 kg; Height 6 ft. 0 mb9 in.; BMI: 58.3; Pain 10/10, Adult; mb9 14:47 14:41 Chief complaint: Patient states: "I'm having severe pain in my left pain since mb9 last night, I feel dizzy from the pain and scared I'm going to fall. I have arthritis but this is worse and goes to my back. I have some burning when I pee and it's like dripping out" mb9
[2023-06-25 19:05] VITALS: TEMP 98
[2023-06-25 19:14] VITALS: O2SAT 99
[2023-06-25 19:17] VITALS: BP 113/78
--- NOTE | 2023-06-26 13:01 | EKG ---
Test Date: 2023-06-25 Test Time: 16:05:03 [employer]: ZACHERY MEASUREMENT RESULTS: Intervals: Rate: 82 ID: [id number] QRSD: 164 QT: 406 QTc: 474 [place]: P: 85 ID: [id number] QRS: 149 T: 15 INTERPRETIVE STATEMENTS: Sinus rhythm with 1st degree AV block Right bundle branch block Abnormal ECG Compared to ECG 04/08/2023 20:09:10 No significant changes Electronically Signed On 06-26-23 12:59:20 CDT by Omer Yan
--- NOTE | 2023-06-26 13:02 | EKG ---
Test Date: 2023-06-25 Test Time: 15:19:28 Customs Entry Writer: ZACHERY MEASUREMENT RESULTS: Intervals: Rate: 80 GA: 334 QRSD: 106 QT: 404 QTc: 465 [place]: P: 59 GA: 334 QRS: -22 T: 31 INTERPRETIVE STATEMENTS: Sinus rhythm with 1st degree AV block Low voltage QRS Right bundle branch block Abnormal ECG Compared to ECG 04/08/2023 20:09:10 Electronically Signed On 06-26-23 13:00:21 CDT by Omer Yan
== END 2023-06-25 18:34 | disposition home or self-care (01) ==
LOC: ER 14:23
DX: M25.552 Pain in left hip (principal); R39.198 Other difficulties with micturition; I10 Essential (primary) hypertension; R73.03 Prediabetes; Z88.5 Allergy status to narcotic agent
CPT/HCPCS: 36415; 80048; 80076; 81003; 83735; 84484; 85025; 85610; 85730; 93005; 96374; 99285

== ENCOUNTER 2023-07-18 13:45 | Emergency (ER) | payer OTHER ==
--- OUTSIDE RECORDS SUMMARY | 2023-07-18 13:47 | XMS REPORT | Continuity of Care Document ---
:1960 Author Organization [facility] t Address [address] [place] [address] Care Team Providers Name Role Phone GARCIALARS DWYERMARQUISE Moraes Primary Care Physician Unavailable Christal Abel MD Attending Clinician CHRISTAL ABEL Attending Clinician Unavailable Only, Adc Test Attending Clinician Unavailable Pob, Adc Lab Main Attending Clinician Unavailable Doctor Unassigned, [place] Attending Clinician Unavailable Aman Stacy MD Attending [...] 2014-11 Univers INGREDI 0-20 ity of 00:00: [address] Branch Social History Social Habit Start Date Stop Date Quantity Comments Source Exposure to Not sure [facility] SARS-CoV-2 [facility] (event) Branch Alcohol intake 2021-11-02 2021-11-02 Current University of 00:00:00 00:00:00 non-drinker of [facility] alcohol [place] (finding) Tobacco use and 2015-09-08 2015-09-08 Never used Universit y of exposure 00:00:00 00:00:00 [facility] Sex Assigned At [birth year] Universit y of 00:00:00 00:00:00 [facility] Smoking Status Start Date Stop Date Source Never smoker [facility] Medications Ordered Filled Start Stop Current Ordering Indication Dosage Frequency Signature Comments Components Source Medication Medication Date Date Medication? Clinician (SIG) Name Name water for 2020-11 Yes PRN, Univers irrigation 2-16 Starting ity o f irrigation 15:49: on [facility] [place] solution 00 11/04/21 Medical at 0949, Branch Until Discontinu ed, Routine, Intra-op neomycin-po 2020-11 Yes PRN, Univer s lymyxin-dex 2-16 Starting ity of amethasone 15:49: on [facility] (MAXITROL) 11/04/21 Medic al 3.5 at 0949, [place] mg/g-10,000 Until unit/g-0.1 Discontinu % ed, ophthalmic Routine, ointment Intra-op gentamicin 2020-11 Yes PRN, Univers injection 2-16 Starting ity of 15:49: on [facility] 11/04/21 Medical at 0949, Branch Until Discontinu ed, AGUILA, Intra-op water for 2020-11- No PRN, Univers irrigation 2-16 12-16 Starting ity of irrigation 15:49: 19[facility] [facility] 11/04/21 Medical [...] Starting ity of VISCO 15:48: on [facility] [place] ELASTIC) 3 00 11/04/21 Medic al %-4 [...] injection Routine, Intra-op dexamethaso 2020-11- No PRN, [facility] ne -11-04 Starting ity of (DECADRON 15:48: [...] of ) 0.5 % 15:47: on [facility] [place] ophthalmic 00 11/04/21 Medic al drops at [...] by mouth ity of tablet 11:31: daily. [address] lisinopril 2020-11 Yes 20mg Take 20 mg U nivers (PRINIVIL,Z 2-16 by mouth 2 it y of ESTRIL) 20 11:31: (two) [place] mg tablet 49 times Medical daily. Branch verapamil 2020-11 Yes 120mg Take 120 Uni vers (ISOPTIN) 2-16 mg by ity of 120 mg 11:31: mouth 2 [place] tablet 49 (two) Medical times [place] daily. ALBUTEROL 2020-11 Yes Inhale. Unive rs INHALE 2-16 ity of 11:31: [address] aspirin 81 2020-11 Yes 81mg Take 81 mg U nivers mg EC 2-16 by mouth ity of tablet 11:31: daily. [address] lisinopril 2020-11 Yes 20mg Take 20 mg U nivers (PRINIVIL,Z 2-16 by mouth 2 it y of ESTRIL) 20 11:31: (two) [place] mg tablet 49 times Medical daily. Branch verapamil 2020-11 Yes 120mg Take 120 Uni vers (ISOPTIN) 2-16 mg by ity of 120 mg 11:31: mouth 2 [place] tablet 49 (two) Medical times [place] daily. ALBUTEROL 2020-11 Yes Inhale. Unive rs INHALE 2-16 ity of 11:31: [address] aspirin 81 2020-11 Yes 81mg Take 81 mg U nivers mg EC 2-16 by mouth ity of tablet 11:31: daily. [address] Branch lisinopril 2020-11 Yes 20mg Take [...] INHALE 2-16 ity of 11:31: [place] [facility] Branch simethicone Yes PRN, Univer [...] by mouth ity of tablet 10:12: daily. [address] lisinopril 0 Yes 20mg Take 20 [...] by mouth ity of tablet 10:12: daily. [address] lisinopril 0 Yes 20mg Take 20 [...] by mouth ity of tablet 10:12: daily. [address] lisinopril 0 Yes 20mg Take 20 [...] by mouth ity of tablet 10:12: daily. [address] lisinopril 2020-0 Yes 20mg Take 20 [...] by mouth ity of tablet 10:44: daily. [address] lisinopril 2014-11 Yes 20mg Take 20 mg U nivers (PRINIVIL,Z 0-22 by mouth 2 it y of ESTRIL) 20 10:44: (two) [place] mg tablet 23 times Medical daily. Branch verapamil 2014-11 Yes 120mg Take 120 Uni vers (ISOPTIN) 0-22 mg by ity of 120 mg 10:44: mouth 2 [place] tablet 23 (two) Medical times [place] daily. aspirin 81 2014-11 Yes 81mg Take 81 mg U nivers mg EC 0-22 by mouth ity of tablet 10:44: daily. [address] lisinopril 2014-11 Yes 20mg Take 20 mg U nivers (PRINIVIL,Z 0-22 by mouth 2 it y of ESTRIL) 20 10:44: (two) [place] mg tablet 23 times Medical daily. Branch verapamil 2014-11 Yes 120mg Take 120 Uni vers (ISOPTIN) 0-22 mg by ity of 120 mg 10:44: mouth 2 [place] tablet 23 (two) Medical times [place] daily. Vital Signs Vital Name Observation Time Observation Value Comments Source Systolic blood 2021-11-04 16:37:00 146 mm[facility]Hg[facility] Diastolic blood 2021-11-04 16:37:00 69 mm[Hg] [facility] Oxygen saturation in 2021-11-04 16:37:00 99 /min [facility] Arterial blood by [facility] Pulse oximetry Branch Heart rate 2021-11-04 16:30:00 71 /min [facility] Respiratory rate 2021-11-04 16:30:00 24 /min [facility] Body temperature 2021-11-04 16:11:00 36.89 [place] [facility] Body height 2021-10-26 14:41:00 182.9 cm [facility] Body weight 2021-10-26 14:41:00 204.1 kg [facility] BMI 2021-10-26 14:41:00 61.01 kg/m2 [facility] Systolic blood 2021-11-04 16:37:00 146 mm[Hg] Univer sity of pressure [place] [facility] Diastolic blood 2021-11-04 16:37:00 69 mm[Hg] Unive rsity of pressure [place] [facility] Oxygen saturation in 2021-11-04 16:37:00 99 /min University of Arterial blood by [facility] cj Pulse oximetry Branch Heart rate 2021-11-04 16:30:00 71 /min [facility] [place] [facility] Respiratory rate 2021-11-04 16:30:00 24 /min Univ ersity [facility] [place] [facility] Body temperature 2021-11-04 16:11:00 36.89 [place] Univ ers[facility] [place] [facility] Body height 2021-10-26 14:41:00 182.9 cm [facility] [place] [facility] Body weight 2021-10-26 14:41:00 204.1 kg [facility] [place] [facility] BMI 2021-10-26 14:41:00 61.01 kg/m2 [facility] [place] [facility] Systolic blood 2021-08-18 15:00:00 158 mm[Hg] Univer sity of pressure [place] [facility] Diastolic blood 2021-08-18 15:00:00 90 mm[Hg] Unive rsity of pressure [place] [facility] Heart rate 2021-08-18 15:00:00 75 /min [facility] [place] [facility] Respiratory rate 2021-08-18 15:00:00 20 /min Univ [facility] [place] [facility] Oxygen saturation in 2021-08-18 15:00:00 100 /min University of Arterial blood by [facility] Pulse oximetry Branch Body temperature 2021-08-18 14:35:00 37.33 [place] [facility] [place] [facility] Body height 2021-08-16 14:15:00 182.9 cm [facility] [place] [facility] Body weight 2021-08-16 14:15:00 204.119 kg [facility] [place] [facility] BMI 2021-08-16 14:15:00 61.03 kg/m2 [facility] [place] [facility] Systolic blood 2021-08-18 15:00:00 158 mm[Hg] Univer sity of pressure [place] [facility] Diastolic blood 2021-08-18 15:00:00 90 mm[Hg] Unive rsity of pressure [place] [facility] Heart rate 2021-08-18 15:00:00 75 /min [facility] Respiratory rate 2021-08-18 15:00:00 20 /min [facility] Oxygen saturation in 2021-08-18 15:00:00 100 /min [facility] Arterial blood by [facility] Pulse oximetry Branch Body temperature 2021-08-18 14:35:00 37.33 [place] [facility] Body height 2021-08-16 14:15:00 182.9 cm [facility] Body weight 2021-08-16 14:15:00 204.119 kg [facility] BMI 2021-08-16 14:15:00 61.03 kg/m2 [facility] Procedures Procedure Date / Time Performing Source Performed Clinician PHACOEMULSIFICATION OF 2021-11-04 Josiane [facility] CATARACT WITH INTRAOCULAR 15:35:00 Bhanu Rossi Kavin LENS IMPLANT COVID-19 (ID NOW RAPID 2021-11-02 Josiane [facility] TESTING) 14:19:00 Bhanu [facility] LAB ONLY COVID INTERPRETATION 2021-11-02 Christal Abel [facility] 14:19:00 Bhanu [facility] ASSIGNMENT OF BENEFITS 2021-10-29 Doctor Unassigned, [facility] 16:45:12 [place] [facility] COLONOSCOPY 2021-08-18 [facility] 13:44:00 C Medical Branch COLONOSCOPY (ENDO) 2021-08-18 Quirino Garcia [facility] 13:37:11 Medical Branch COLONOSCOPY (ENDO) 2021-08-[address] [facility] 13:37:11 Medical Branch COVID-19 (ID NOW RAPID 2021-08-16 [facility] TESTING) 15:46:00 C Medical Branch ASSIGNMENT OF BENEFITS 2021-08-16 Doctor Unassigned, [facility] 15:36:54 [place] [facility] EXTERNAL PROVIDER RECORDS 2021-07-21 Doctor Unassigned, [facility] 05:01:00 [place] [facility] EXTERNAL PROVIDER RECORDS 2021-07-21 Doctor Unassigned, [facility] 05:01:00 [place] [facility] [place] Encounters Start End Encounter Admission Attending Care Care Encounter Source Date/Time Date/Time Type Type Clinicians Facility Department ID 2021-11-04 2021-11-04 Surgery Josiane [facility] [id number] Univers 10:24:00 11:00:00 Christal TEJADA [id number] i ty of [id number] [id number] [facility] 020 Branch 2021-11-04 2021-11-04 [facility] [id number] Univers 08:47:00 10:45:00 Encounter Christal TEJADA [id number] ity of [id number] [id number] [facility] 071 Branch 2021-11-04 2021-11-04 Outpatient R JOSIANE [facility] OPH [id number] Univers 08:47:00 10:45:00 CHRISTAL pizarro [facility] 2021-11-02 2021-11-02 Laboratory Only, Adc Test [facility] 1.2.840. 114 [id number] Univers 08:00:00 08:15:00 Only Christal Abel 350.1.1 3.10 [id number] [id number] [facility] 353 Branch 2021-11-02 2021-11-02 Outpatient R [facility]IANE [facility] [id number] Univers 08:00:00 08:00:00 CHRISTAL pizarro [facility] 2021-10-29 2021-10-29 Program Development Specialist Tabby, Adc Lab Main [facility] 1.2.8 40.114 [id number] Univers 10:50:56 11:05:56 Visit Christal Abel 350.1.1 3.10 [id number] [id number] Ca dical [address] 2021-10-29 2021-10-29 Outpatient R [facility]OSIANE [facility] [id number] Univers 11:00:00 11:00:00 CHRISTAL ity [facility] 2021-10-29 2021-10-29 Orders Doctor PRAVEEN [id number] [id number] Univers 00:00:00 00:00:00 Only Unassigned, ADRIENNE [id number] ity of [place] [facility] [id number] Abraham as [id number] [facility] 009 Branch 2021-10-28 2021-10-28 Outpatient R [facility]IANE [facility] [id number] Univers 15:45:00 15:45:00 CHRISTAL ity [facility] 2021-08-18 2021-08-18 Hospital [facility] 1.2.840.114 [id number] Univers 07:25:00 10:08:00 Encounter Aman elena [id number] ity [id number] [id number] [facility] 071 Branch 2021-08-18 2021-08-18 Outpatient [facility] [id number] Univers 07:25:00 10:08:00 AMAN Elena o f [facility] 2021-08-18 2021-08-18 Surgery [facility] 1.2.840.114 [id number] Univers 09:24:00 10:01:00 Aman elena [id number] ity [id number] [id number] [facility] 020 Branch 2021-08-16 2021-08-[address] [facility] [id number] Univers 11:30:00 11:30:00 AMAN Elena o f [facility] 2021-08-16 2021-08-16 Laboratory Only, Adc Test [facility] 1.2.840. 114 [id number] Univers 10:43:57 10:58:57 Only Aman Stacy 350.1.1 3.10 ity [id number] [id number] [facility] 353 Branch 2021-08-16 2021-08-16 Orders Doctor PRAVEEN 1.2.840.114 [id number] Univers 00:00:00 00:00:00 Only Unassigned, ADRIENNE [id number] ity of [place] [facility] 4.2.7.2.686 [place] as [id number] [facility] 009 Branch Results This patient has no known results.
[2023-07-18] MEDS ORDERED: KETOROLAC 30 MG/ML INJ ONE (15:01)
[2023-07-18 15:12] LABS: Lymphocytes % 16.2 % (15.3-44.8); MCV 90.3 fL (80-100); MPV 8.7 fL (7.6-11.3); Platelets 244 thou/uL (152-406); RBC Red Blood Cell Count 4.87 M/uL (4.33-5.43)
[2023-07-18 15:26] LABS: Albumin 3.7 g/dL (3.4-5.0); Bilirubin Total 0.4 mg/dL (0.2-1.0); Potassium 3.3 mEq/L (3.5-5.1); Protein, Total 7.7 g/dL (6.4-8.2)
[2023-07-18 15:40] LABS: Specific Gravity 1.025 (1.005-1.030); Urine Bacteria None Seen /HPF (<20); Urine Bilirubin NEGATIVE (Negative); Urine Blood Negative (Negative); Urine Clarity Turbid (Clear); Urine Color Yellow (Yellow); Urine Glucose NEGATIVE (Negative); Urine Mucus Slight /HPF (None Seen); Urine Protein NEGATIVE (Negative); Urine RBC <5 /HPF (None Seen); Urine Urobilinogen Normal (Normal); Urine pH 5.5 (5.0-7.0)
--- NOTE | 2023-07-18 16:04 | EDPHYS ---
Physician Documentation [facility] Name: Grupo Mcdonald Jr Age: 62 yrs Sex: Male : 1960 Arrival Date: 07/18/2023 Time: 13:45 Bed 17 Private MD: ED Physician Ivan Virk HPI: 07/18 16:03 This 62 yrs old Male presents to ER via Ambulatory with complaints of Flank Pain. ms3 16:03 62-year-old male with past medical history of cellulitis, gout, hypertension, ms3 lymphedema, prediabetes, psoriatic arthritis presents for left lower quadrant abdominal pain that is been ongoing for 2 days. Patient notes he has had a decrease in appetite, diarrhea, chills. Patient states his discomfort is rated a 7/10 and described as aching/dull/burning located in the left lower quadrant. Patient denies fever, shortness of breath, chest pain. Patient denies alleviating or inciting factors. Historical: - Allergies: 14:01 Codeine; cm10 14:01 Vicodin; cm10 - PMHx: 14:01 Cellulitis; Gout; Hypertension; lymphedema; Pre Diabetes; Psoriatic Arthritis; stroke; cm10 - PSHx: 14:01 Appendectomy; cm10 - Immunization history:: Adult Immunizations unknown. - Social history:: Smoking status: Patient denies any tobacco usage or history of. ROS: 16:03 Constitutional: Negative for fever, and chills. Neck: Negative for injury, pain, and ms3 swelling, Cardiovascular: Negative for chest pain, and palpitations. Respiratory: Negative for shortness of breath, cough, wheezing, and pleuritic chest pain. 16:03 Abdomen/GI: Positive for abdominal pain. 16:03 All other systems are negative. Exam: 16:03 Constitutional: This is a well developed, well nourished patient who is awake, alert, ms3 and in no acute distress. Head/Face: Normocephalic, atraumatic. Neck: Trachea midline, no cervical lymphadenopathy. Supple, full range of motion without nuchal rigidity, or vertebral point tenderness. No Meningismus. Chest/axilla: Normal chest wall appearance and motion. Nontender with no deformity. Cardiovascular: Regular rate and rhythm with a normal S1 and S2. No gallops, murmurs, or rubs. Normal PMI, no JVD. No pulse deficits. Respiratory: Lungs have equal breath sounds bilaterally, clear to auscultation and percussion. No rales, rhonchi or wheezes noted. No increased work of breathing, no retractions or nasal flaring. 16:03 Abdomen/GI: Inspection: obese Bowel sounds: normal, Palpation: mild abdominal tenderness, in the left lower quadrant. Vital Signs: 13:58 BP 116 / 73; Pulse 82; Resp 16 S; Temp 98.2(TE); Pulse Ox 100% on R/A; Weight 190.51 cm10 kg; Height 6 ft. 0 in. ; Pain 7/10; 15:05 BP 124 / 67; Pulse 80; Resp 17 S; Pulse Ox 100% on R/A; kc6 16:06 Weight 187.29 kg (M); kc6 16:06 Body Mass Index 56.00 (187.29 kg, 182.88 cm) [facility] 13:58 Pain Scale: Adult cm10 MDM: 13:58 Patient medically screened. ms3 16:03 Differential diagnosis: nephrolithiasis, pyelonephritis, UTI, diverticulitis. Data ms3 reviewed: vital signs, nurses notes, lab test result(s), and as a result, I will discharge patient. I considered the following discharge prescriptions or medication management in the emergency department Medications were administered in the Emergency Department. See MAR. Test considered but Not performed: CT: Discussed transferring patient for CT. Discussed labs with patient and through shared decision making patient declined transfer for CT. Patient states he will return for worsening pain, fevers, chills, vomiting.. Counseling: I had a detailed discussion with the patient and/or guardian regarding the historical points, exam findings, and any diagnostic results supporting the discharge/admit diagnosis, lab results, the need for outpatient follow up, to return to the emergency department if symptoms worsen or persist or if there are any questions or concerns that arise at home. Special discussion: I discussed with the patient/guardian in detail that at this point there is no indication for admission to the hospital. It is understood, however, that if the symptoms persist or worsen the patient needs to return immediately for re-evaluation. ED course: Discussed transfer for CT with patient. Patient declines transfer at this time. Discussed return precautions with patient to include fevers, chills, vomiting, rectal bleeding, worsening symptoms, or any other concerns. Patient to follow-up with her primary care physician in 1 to 2 days. All questions were answered. Patient given prescription for Augmentin. 07/18 14:24 Order name: CBC with Diff; Complete Time: 15:46 ms3 07/18 14:24 Order name: CMP; Complete Time: 15:46 ms3 07/18 14:24 Order name: Urinalysis w/ reflexes; Complete Time: 15:46 ms3 07/18 14:24 Order name: IV Saline Lock; Complete Time: 15:03 ms3 07/18 14:24 Order name: Labs collected and sent; Complete Time: 15:03 ms3 Administered Medications: 15:03 Drug: TORadol - Ketorolac IVP 15 mg Route: IVP; Site: right antecubital; [facility] 16:06 Follow up: Response: No adverse reaction; Pain is unchanged, physician notified kc6 Disposition Summary: 07/18/23 16:03 Discharge Ordered Location: Home ms3 Condition: Stable ms3 Diagnosis - Diverticulitis ms3 - Lower abdominal pain, unspecified ms3 Followup: ms3 - With: Private Physician - When: 2 - 3 days - Reason: Recheck today's complaints Discharge Instructions: - Discharge Summary Sheet ms3 - Abdominal Pain, Adult ms3 Forms: - Medication Reconciliation Form ms3 - Thank You Letter ms3 - Antibiotic Education ms3 - Prescription Opioid Use ms3 - Patient Portal Instructions ms3 - Leadership Thank You Letter ms3 Prescriptions: - Augmentin 875-125 mg Oral Tablet - take 1 tablet by ORAL route every 12 hours for 10 days; 20 tablet; Refills: 0, ms3 Product Selection Permitted Signatures: Dispatcher [employer] EDMS Ivan Virk DO DO ms3 Zoe Clemente RN RN kc6 Mora Harris RN RN cm10 Corrections: (The following items were deleted from the chart) 14:59 14:24 Abdomen Pelvis W Con+CT.RAD.BRZ ordered. EDMS EDMS
--- NOTE | 2023-07-18 16:04 | ER ---
Nurse's Notes [facility] Name: Grupo Mcdonald Jr Age: 62 yrs Sex: Male : 1960 Arrival Date: 07/18/2023 Time: 13:45 Bed 17 Private MD: Diagnosis: Diverticulitis;Lower abdominal pain, unspecified Presentation: 07/18 13:58 Chief complaint: Patient states: left sided abdominal pain onset Monday night. Pt cm10 denies nausea and vomiting and reports that he has had diarrhea. Coronavirus screen: Vaccine status: Patient reports being unvaccinated. Ebola Screen: Patient denies travel to an Ebola-affected area in the 21 days before illness onset. No symptoms or risks identified at this time. Initial Sepsis Screen: Does the patient meet any 2 criteria? No. Patient's initial sepsis screen is negative. Does the patient have a suspected source of infection? No. Patient's initial sepsis screen is negative. Risk Assessment: Do you want to hurt yourself or someone else? Patient reports no desire to harm self or others. Onset of symptoms was July 18, 2023. 13:58 Method Of Arrival: Ambulatory cm10 13:58 Acuity: MARTY 3 cm10 Historical: - Allergies: 14:01 Codeine; cm10 14:01 Vicodin; cm10 - PMHx: 14:01 Cellulitis; Gout; Hypertension; lymphedema; Pre Diabetes; Psoriatic Arthritis; stroke; cm10 - PSHx: 14:01 Appendectomy; cm10 - Immunization history:: Adult Immunizations unknown. - Social history:: Smoking status: Patient denies any tobacco usage or history of. Screenin:03 [facility] ED Fall Risk Assessment (Adult) History of falling in the last 3 months, kc6 including since admission No falls in past 3 months (0 pts) Confusion or Disorientation No (0 pts) Intoxicated or Sedated No (0 pts) Impaired Gait Yes (1 pt) Mobility Assist Device Used Yes (1 pt) Altered Elimination No (0 pt) Score/Fall Risk Level 0 - 2 = Low Risk. Abuse screen: Denies threats or abuse. Denies injuries from another. Nutritional screening: No deficits noted. Tuberculosis screening: No symptoms or risk factors identified. Assessment: 15:04 General: Appears in no apparent distress. comfortable, obese, well groomed, Behavior is kc6 calm, cooperative, appropriate for age. Pain: Complains of pain in left flank. Neuro: Level of Consciousness is awake, alert, obeys commands, Oriented to person, place, time, situation, Appropriate for age. Cardiovascular: Capillary refill < 3 seconds. Respiratory: Airway is patent Trachea midline Respiratory effort is even, unlabored, Respiratory pattern is regular, symmetrical. GI: Abdomen is round non-distended, obese, Bowel sounds present X 4 quads. Abd is soft and non tender X 4 quads. Reports diarrhea, Patient currently denies nausea, vomiting. : No signs and/or symptoms were reported regarding the genitourinary system. EENT: No signs and/or symptoms were reported regarding the EENT system. Derm: No signs and/or symptoms reported regarding the dermatologic system. Skin is intact, is healthy with good turgor, Skin is pink, warm \T\ dry. Musculoskeletal: No signs and/or symptoms reported regarding the musculoskeletal system. Circulation, motion, and sensation intact. Capillary refill < 3 seconds, Range of motion: intact in all extremities. 16:07 Reassessment: Patient appears in no apparent distress at this time. No changes from kc6 previously documented assessment. Patient and/or family updated on plan of care and expected duration. Pain level reassessed. Patient is alert, oriented x 3, equal unlabored respirations, skin warm/dry/pink. pt voicing concerns about having second thoughts regarding CT scan. Dr. Virk at bedside discussing options for transfer with pt. Vital Signs: 13:58 BP 116 / 73; Pulse 82; Resp 16 S; Temp 98.2(TE); Pulse Ox 100% on R/A; Weight 190.51 cm10 kg; Height 6 ft. 0 in. ; Pain 7/10; 15:05 BP 124 / 67; Pulse 80; Resp 17 S; Pulse Ox 100% on R/A; kc6 16:06 Weight 187.29 kg (M); kc6 16:06 Body Mass Index 56.00 (187.29 kg, 182.88 cm) kc6 13:58 Pain Scale: Adult cm10 ED Course: 13:46 Patient arrived in ED. rg4 13:50 Ivan Virk DO is Attending Physician. ms3 14:01 Triage completed. cm10 14:02 Arm band placed on Patient placed in an exam room, on a stretcher. cm10 14:06 Zoe Clemente, RN is Primary Nurse. kc6 15:03 CBC with Diff Sent. kc6 15:03 CMP Sent. kc6 15:03 Inserted saline lock: 20 gauge in right antecubital area, using aseptic technique. kc6 Blood collected. 15:04 Patient has correct armband on for positive identification. Bed in low position. Call kc6 light in reach. Side rails up X 1. 16:19 No provider procedures requiring assistance completed. IV discontinued, intact, kc6 bleeding controlled, No redness/swelling at site. Pressure dressing applied. Administered Medications: 15:03 Drug: TORadol - Ketorolac IVP 15 mg Route: IVP; Site: right antecubital; kc6 16:06 Follow up: Response: No adverse reaction; Pain is unchanged, physician notified kc6 Medication: 16:19 VIS not applicable for this client. kc6 Outcome: 16:03 Discharge ordered by MD. ms3 16:19 Discharged to home ambulatory. kc6 16:19 Condition: stable 16:19 Discharge instructions given to patient, Instructed on discharge instructions, follow up and referral plans. medication usage, Demonstrated understanding of instructions, follow-up care, medications, Prescriptions given X 1. 16:19 Patient left the ED. kc6 Signatures: Tori Mejia rg4 Ivan Virk DO DO ms3 Zoe Clemente, RN RN kc6 Mora Harris RN RN cm10 Corrections: (The following items were deleted from the chart) 16:09 16:07 Reassessment: Patient appears in no apparent distress at this time. No changes kc6 from previously documented assessment. Patient and/or family updated on plan of care and expected duration. Pain level reassessed. Patient is alert, oriented x 3, equal unlabored respirations, skin warm/dry/pink. kc6
[2023-07-18 16:24] VITALS: TEMP 98.2; O2SAT 100
[2023-07-18 16:29] VITALS: BP 124/67
== END 2023-07-18 16:19 | disposition home or self-care (01) ==
LOC: ER 13:45
DX: K57.32 Diverticulitis of large intestine without perforation or abscess without bleeding (principal); Z88.5 Allergy status to narcotic agent
CPT/HCPCS: 36415; 80053; 81001; 85025; 96374; 99284

== ENCOUNTER 2023-08-07 20:10 | Observation (INO) | payer OTHER ==
--- OUTSIDE RECORDS SUMMARY | 2023-08-07 20:16 | XMS REPORT | Continuity of Care Document ---
:1960 Author Organization [facility] t Address [address] [place] [address] Care Team Providers Name Role Phone GARCIALARS DWYERMARQUISE Moraes Primary Care Physician Unavailable Christal Abel MD Attending Clinician CHRISTAL ABEL Attending Clinician Unavailable Only, Adc Test Attending Clinician Unavailable Pob, Adc Lab Main Attending Clinician Unavailable Doctor Unassigned, [place] Attending Clinician Unavailable Aman Stacy MD Attending [...] 2014-11 Univers INGREDI 0-20 ity of 00:00: [address] Branch Social History Social Habit Start Date Stop Date Quantity Comments Source Exposure to Not sure [facility] SARS-CoV-2 [facility] (event) Branch Alcohol intake 2021-11-02 2021-11-02 Current University of 00:00:00 00:00:00 non-drinker of [facility] alcohol [place] (finding) Tobacco use and 2015-09-08 2015-09-08 Never used Universit y of exposure 00:00:00 00:00:00 [facility] Sex Assigned At [birth year] Universit y of 00:00:00 00:00:00 [facility] Smoking Status Start Date Stop Date Source Never smoker [facility] Medications Ordered Filled Start Stop Current Ordering Indication Dosage Frequency Signature Comments Components Source Medication Medication Date Date Medication? Clinician (SIG) Name Name water for 2020-11 Yes PRN, Univers irrigation 2-16 Starting ity o f irrigation 15:49: on [facility] [place] solution 00 11/04/21 Medical at 0949, Branch Until Discontinu ed, Routine, Intra-op neomycin-po 2020-11 Yes PRN, Univer s lymyxin-dex 2-16 Starting ity of amethasone 15:49: on [facility] (MAXITROL) 11/04/21 Medic al 3.5 at 0949, [place] mg/g-10,000 Until unit/g-0.1 Discontinu % ed, ophthalmic Routine, ointment Intra-op gentamicin 2020-11 Yes PRN, Univers injection 2-16 Starting ity of 15:49: on [facility] 11/04/21 Medical at 0949, Branch Until Discontinu ed, AGUILA, Intra-op water for 2020-11- No PRN, Univers irrigation 2-16 12-16 Starting ity of irrigation 15:49[facility]04[facility]21 Medical [...] Starting ity of VISCO 15:48: on [place] ELASTIC) 3 00 11/04/21 Medic al %-4 [...] injection Routine, Intra-op dexamethaso 2020-11- No PRN, [facility] ne -11-04 Starting ity of (DECADRON 15:48: [...] of ) 0.5 % 15:47: on [place] ophthalmic 00 11/04/21 Medic al drops at [...] by mouth ity of tablet 11:31: daily. [address] lisinopril 2020-11 Yes 20mg Take 20 mg U nivers (PRINIVIL,Z 2-16 by mouth 2 it y of ESTRIL) 20 11:31: (two) [place] mg tablet 49 times Medical daily. Branch verapamil 2020-11 Yes 120mg Take 120 Uni vers (ISOPTIN) 2-16 mg by ity of 120 mg 11:31: mouth 2 [place] tablet 49 (two) Medical times [place] daily. ALBUTEROL 2020-11 Yes Inhale. Unive rs INHALE 2-16 ity of 11:31: [address] aspirin 81 2020-11 Yes 81mg Take 81 mg U nivers mg EC 2-16 by mouth ity of tablet 11:31: daily. [address] lisinopril 2020-11 Yes 20mg Take 20 mg U nivers (PRINIVIL,Z 2-16 by mouth 2 it y of ESTRIL) 20 11:31: (two) [place] mg tablet 49 times Medical daily. Branch verapamil 2020-11 Yes 120mg Take 120 Uni vers (ISOPTIN) 2-16 mg by ity of 120 mg 11:31: mouth 2 [place] tablet 49 (two) Medical times [place] daily. ALBUTEROL 2020-11 Yes Inhale. Unive rs INHALE 2-16 ity of 11:31: [address] aspirin 81 2020-11 Yes 81mg Take 81 mg U nivers mg EC 2-16 by mouth ity of tablet 11:31: daily. [address] Branch lisinopril 2020-11 Yes 20mg Take [...] INHALE 2-16 ity of 11:31: [place] [address] [facility] Branch simethicone Yes PRN, Univer s (GAS [...] by mouth ity of tablet 10:12: daily. [address] lisinopril 0 Yes 20mg Take 20 [...] by mouth ity of tablet 10:12: daily. [address] lisinopril 0 Yes 20mg Take 20 [...] by mouth ity of tablet 10:12: daily. [address] lisinopril 0 Yes 20mg Take 20 [...] by mouth ity of tablet 10:12: daily. [address] lisinopril 2020-0 Yes 20mg Take 20 [...] by mouth ity of tablet 10:44: daily. [address] lisinopril 2014-11 Yes 20mg Take 20 mg U nivers (PRINIVIL,Z 0-22 by mouth 2 it y of ESTRIL) 20 10:44: (two) [place] mg tablet 23 times Medical daily. Branch verapamil 2014-11 Yes 120mg Take 120 Uni vers (ISOPTIN) 0-22 mg by ity of 120 mg 10:44: mouth 2 [place] tablet 23 (two) Medical times [place] daily. aspirin 81 2014-11 Yes 81mg Take 81 mg U nivers mg EC 0-22 by mouth ity of tablet 10:44: daily. [address] lisinopril 2014-11 Yes 20mg Take 20 mg U nivers (PRINIVIL,Z 0-22 by mouth 2 it y of ESTRIL) 20 10:44: (two) [place] mg tablet 23 times Medical daily. Branch verapamil 2014-11 Yes 120mg Take 120 Uni vers (ISOPTIN) 0-22 mg by ity of 120 mg 10:44: mouth 2 [place] tablet 23 (two) Medical times [place] daily. Vital Signs Vital Name Observation Time Observation Value Comments Source Systolic blood 2021-11-04 16:37:00 146 mm[Hg] [facility] pressure [facility] Diastolic blood 2021-11-04 16:37:00 69 mm[Hg] [facility] Oxygen saturation in 2021-11-04 16:37:00 99 /min [facility] Arterial blood by [facility] Pulse oximetry Branch Heart rate 2021-11-04 16:30:00 71 /min [facility] Respiratory rate 2021-11-04 16:30:00 24 /min [facility] Body temperature 2021-11-04 16:11:00 36.89 [place] [facility] Body height 2021-10-26 14:41:00 182.9 cm [facility] Body weight 2021-10-26 14:41:00 204.1 kg [facility] BMI 2021-10-26 14:41:00 61.01 kg/m2 [facility] Systolic blood 2021-11-04 16:37:00 146 mm[Hg] Univer sity of pressure [place] [facility] Diastolic blood 2021-11-04 16:37:00 69 mm[Hg] Unive rsity of pressure [place] [facility] Oxygen saturation in 2021-11-04 16:37:00 99 /min University of Arterial blood by [facility] cj Pulse oximetry Branch Heart rate 2021-11-04 16:30:00 71 /min Universi ty [facility] [place] [facility] Respiratory rate 2021-11-04 16:30:00 24 /min Univ ersity of [place] [facility] Body temperature 2021-11-04 16:11:00 36.89 [place] Univ ersity of [place] [facility] Body height 2021-10-26 14:41:00 182.9 cm [facility]i [facility] [place] [facility] Body weight 2021-10-26 14:41:00 204.1 kg [facility] [place] [facility] BMI 2021-10-26 14:41:00 61.01 kg/m2 [facility] [place] [facility] Systolic blood 2021-08-18 15:00:00 158 mm[Hg] Univer sity of pressure [place] [facility] Diastolic blood 2021-08-18 15:00:00 90 mm[Hg] Unive rsity of pressure [place] [facility] Heart rate 2021-08-18 15:00:00 75 /min [facility]i [facility] [place] [facility] Respiratory rate 2021-08-18 15:00:00 20 /min Univ ersity of [place] [facility] Oxygen saturation in 2021-08-18 15:00:00 100 /min University of Arterial blood by [facility] Pulse oximetry Branch Body temperature 2021-08-18 14:35:00 37.33 [place] Univ ersity [facility] [place] [facility] Body height 2021-08-16 14:15:00 182.9 cm [facility] [place] [facility] Body weight 2021-08-16 14:15:00 204.119 kg [facility] [place] [facility] BMI 2021-08-16 14:15:00 61.03 kg/m2 [facility] [place] [facility] Systolic blood 2021-08-18 15:00:00 158 mm[Hg] Univer sity of pressure [place] [facility] Diastolic blood 2021-08-18 15:00:00 90 mm[Hg] Unive rsity of pressure [place] [facility] Heart rate 2021-08-18 15:00:00 75 /min [facility] Respiratory rate 2021-08-18 15:00:00 20 /min [facility] Oxygen saturation in 2021-08-18 15:00:00 100 /min [facility] Arterial blood by [facility] Pulse oximetry Branch Body temperature 2021-08-18 14:35:00 37.33 [place] [facility] Body height 2021-08-16 14:15:00 182.9 cm [facility] Body weight 2021-08-16 14:15:00 204.119 kg [facility] BMI 2021-08-16 14:15:00 61.03 kg/m2 [facility] Procedures Procedure Date / Time Performing Source Performed Clinician PHACOEMULSIFICATION OF 2021-11-04 Josiane [facility] CATARACT WITH INTRAOCULAR 15:35:00 Bhanu Rossi Kavin LENS IMPLANT COVID-19 (ID NOW RAPID 2021-11-02 Josiane [facility] TESTING) 14:19:00 Bhanu [facility] LAB ONLY COVID INTERPRETATION 2021-11-02 Christal Abel [facility] 14:19:00 Bhanu [facility] ASSIGNMENT OF BENEFITS 2021-10-29 Doctor Unassigned, [facility] 16:45:12 [place] [facility] COLONOSCOPY 2021-08-18 [facility] [place] [facility] 13:44:00 C Medical Branch COLONOSCOPY (ENDO) 2021-08-18 Quirino Garcia [facility] 13:37:11 Medical Branch COLONOSCOPY (ENDO) 2021-08-18 Quirino Garcia [facility] 13:37:11 Medical Branch COVID-19 (ID NOW RAPID 2021-08-16 [facility] TESTING) 15:46:00 C Medical Branch ASSIGNMENT OF BENEFITS 2021-08-16 Doctor Unassigned, [facility] 15:36:54 [place] [facility] EXTERNAL PROVIDER RECORDS 2021-07-21 Doctor Unassigned, [facility] 05:01:00 [place] [facility] EXTERNAL PROVIDER RECORDS 2021-07-21 Doctor Unassigned, [facility] 05:01:00 [place] [facility] [place] Encounters Start End Encounter Admission Attending Care Care Encounter Source Date/Time Date/Time Type Type Clinicians Facility Department ID 2021-11-04 2021-11-04 Surgery Josiane RUST [id number] Univers 10:24:00 11:00:00 Christal TEJADA [id number] i ty of [id number] [id number] [facility] 020 Branch 2021-11-04 2021-11-04 [facility] [id number] Univers 08:47:00 10:45:00 Encounter Christal TEJADA [id number] ity of [id number] [id number] [facility] 071 Branch 2021-11-04 2021-11-04 Outpatient R JOSIANE RUST OPH [id number] Univers 08:47:00 10:45:00 CHRISTAL pizarro [facility] 2021-11-02 2021-11-02 Laboratory Only, Adc Test RUST 1.2.840. [id number] Univers 08:00:00 08:15:00 Only Christal Abel 350.1.1 3.10 [id number] [id number] [facility] 353 Branch 2021-11-02 2021-11-02 Outpatient R JOSIANE [facility] [id number] Univers 08:00:00 08:00:00 CHRISTAL pizarro [facility] 2021-10-29 2021-10-29 Purchasing Assistant Tabby, Adc Lab Main RUST 1.2.8 40.114 [id number] Univers 10:50:56 11:05:56 Visit Christal Abel 350.1.1 3.10 [id number] [id number] [place] [facility] [address] 2021-10-29 2021-10-29 Outpatient R JOSIANE [facility] [id number] Univers 11:00:00 11:00:00 CHRISTAL ity [facility] 2021-10-29 2021-10-29 Orders Doctor PRAVEEN [id number] Univers 00:00:00 00:00:00 Only Unassigned, ADRIENNE [id number] ity of [place] [facility] [id number] [place] as [id number] [facility] 009 Branch 2021-10-28 2021-10-28 Outpatient R JOSIANE [facility] [id number] Univers 15:45:00 15:45:00 CHRISTAL ity [facility] 2021-08-18 2021-08-18 Hospital [facility] [id number] Univers 07:25:00 10:08:00 Encounter Aman elena [id number] [id number] [id number] [facility] 071 Branch 2021-08-18 2021-08-18 Outpatient R [facility] [id number] Univers 07:25:00 10:08:00 AMAN Elena o f [facility] 2021-08-18 2021-08-18 Surgery [facility] [id number] Univers 09:24:00 10:01:00 Aman elena [id number] [place] [id number] [id number] [facility] 020 Branch 2021-08-16 2021-08-16 Outpatient R [facility] [id number] Univers 11:30:00 11:30:00 AMAN Elena o f [facility] 2021-08-16 2021-08-16 Laboratory Only, Adc Test RUST 1.2.840. 114 [id number] Univers 10:43:57 10:58:57 Only Aman Stacy 350.1.1 3.10 [id number] [id number] [facility] 353 Branch 2021-08-16 2021-08-16 Orders Doctor PRAVEEN [id number] Univers 00:00:00 00:00:00 Only Unassigned, ADRIENNE [id number] ity of [place] [facility] [id number] [place] as [id number] [facility] 009 Branch Results This patient has no known results.
[2023-08-07 21:07] LABS: Absolute Lymphocytes (CBC) 0.9 K/uL (0.7-4.9); Hematocrit 42.6 % (39.6-49.0); Lymphocytes % 13.9 % (15.3-44.8); MCV 89.8 fL (80-100); MPV 8.4 fL (7.6-11.3); Platelets 220 thou/uL (152-406); RBC Red Blood Cell Count 4.75 M/uL (4.33-5.43)
[2023-08-07 21:22] LABS: Albumin 3.6 g/dL (3.4-5.0); Bilirubin Direct 0.1 mg/dL (0-0.2); Bilirubin Indirect, Calculated 0.4 mg/dL (0.2-0.8); Bilirubin Total 0.5 mg/dL (0.2-1.0); Magnesium 1.8 mg/dL (1.6-2.4); Potassium 3.4 mEq/L (3.5-5.1); Protein, Total 7.6 g/dL (6.4-8.2); Troponin High Sensitivity 14.2 pg/mL (<58.9)
[2023-08-07 21:26] LABS: Protime INR 1.1
--- NOTE | 2023-08-07 21:33 | RAD REPORT ---
EXAM DESCRIPTION: RADChest Single View08/07/2023 9:14 pm CLINICAL HISTORY: CHEST PAIN COMPARISON: Chest Single View dated 04/09/2023; Chest Single View dated 04/08/2023; Chest Single View dated 02/13/2023; Chest Single View dated 02/10/2023 TECHNIQUE: Portable AP view of the chest. FINDINGS: The lungs are clear. No pneumothorax or effusion. The cardiomediastinal contours are unre markable. IMPRESSION: No acute cardiopulmonary process.
[2023-08-07] MEDS ORDERED: TDAP (DIPHTH,PERTUSS(ACELL),TET VAC) 0.5 ML VIAL IMVAC ONE (23:09)
--- NOTE | 2023-08-07 23:39 | EDPHYS ---
Physician Documentation [facility] Name: Grupo Mcdonald Jr Age: 62 yrs Sex: Male : 1960 Arrival Date: 08/07/2023 Time: 20:10 Bed IW10 Private MD: ED Physician Gokul Del Cid HPI: 08/07 20:16 This 62 yrs old Male presents to ER via Unassigned with complaints of sp4 Dizziness, High Blood Pressure, Facial Swelling. 20:28 PMH - Allergies: Codeine; Vicodin; PMHx: Cellulitis; Gout; Hypertension; lymphedema; sp4 Pre Diabetes; Psoriatic Arthritis; stroke PSHx: Appendectomy;. 22:35 Patient is 62-year-old male presents with 3 weeks of dizziness, feeling unwell, and sp4 fluctuations in blood pressure. Patient reported blood pressure at home was 180/112. Patient goes to Dr. Talbot in [facility] . Patient has history of morbid obesity, hypertension, lymphedema, prediabetes, psoriatic arthritis cellulitis. Patient denied chest pains and vomiting. He reported falling down today causing abrasion to the right hand and contusion to the left temporal scalp. Patient states he is too heavy for CT scan. . Historical: - Allergies: 20:27 Codeine; me1 20:27 Vicodin; me1 - PMHx: 20:27 Cellulitis; Gout; Hypertension; lymphedema; Pre Diabetes; Psoriatic Arthritis; stroke; me1 asbestosis; - PSHx: 20:27 Appendectomy; me1 - Immunization history:: Adult Immunizations up to date. - Social history:: Smoking status: Patient denies any tobacco usage or history of. - Family history:: not pertinent. ROS: 08/08 08:35 Constitutional: Negative for fever, chills, and weight loss, positive generalized sp4 weakness, positive dizziness, positive near syncope, positive for elevated blood pressure All other systems are negative, Exam: 08/07 22:40 ECG was reviewed by the Attending Physician. sp4 23:27 EKG time 2103, there is no sign of ST elevation MT, sinus rhythm at 82 bpm, sp4 first-degree AV block, right bundle branch block. No ectopy no ST elevation or depression 08/08 08:35 Constitutional: This is a well developed, well nourished patient who is awake, alert, sp4 and in no acute distress. Morbidly obese male Head/Face: Normocephalic, atraumatic. Eyes: Pupils equal round and reactive to light, extra-ocular motions intact. Lids and lashes normal. Conjunctiva and sclera are not injected. Cornea within normal limits. Periorbital areas with no swelling, redness, or edema. ENT: Nares patent. No nasal discharge, no septal abnormalities noted. Tympanic membranes are normal and external auditory canals are clear. Oropharynx with no redness, swelling, or masses, exudates, or evidence of obstruction, uvula midline. Mucous membranes moist. Neck: Trachea midline, no thyromegaly or masses palpated, and no cervical lymphadenopathy. Supple, full range of motion without nuchal rigidity, or vertebral point tenderness. Chest/axilla: Normal chest wall appearance and motion. Nontender with no deformity. No lesions are appreciated. Cardiovascular: Regular rate and rhythm with a normal S1 and S2. No gallops, murmurs, or rubs. Normal PMI, no JVD. No pulse deficits. Respiratory: Lungs have equal breath sounds bilaterally, clear to auscultation and percussion. No rales, rhonchi or wheezes noted. No increased work of breathing, no retractions or nasal flaring. Abdomen/GI: Soft, non-tender, with normal bowel sounds. No distension or tympany. No guarding or rebound. No evidence of tenderness throughout. Back: No spinal tenderness. No costovertebral tenderness. Skin: Warm, dry with normal turgor. Normal color with no rashes, no lesions, and no evidence of cellulitis. MS/ Extremity: Pulses equal, no cyanosis. Neurovascular intact. Full, normal range of motion. Neuro: Awake and alert, GCS 15, oriented to person, place, time, and situation. Cranial nerves II-XII grossly intact. Motor strength 5/5 in all extremities. Sensory grossly intact. Psych: Awake, alert, with orientation to person, place and time. Behavior, mood, and affect are within normal limits Vital Signs: 08/07 20:21 BP 161 / 86; Pulse 92; Resp 20; Temp 98.7(TE); Pulse Ox 99% on R/A; Weight 186.88 kg; me1 Height 6 ft. 0 in. ; 08/08 00:31 BP 139 / 69; Pulse 78; Resp 16; Pulse Ox 98% ; bp 08/07 20:21 Body Mass Index 55.88 (186.88 kg, 182.88 cm) me1 NIH Stroke Scale Scores: 08/07 23:38 NIHSS Score: 0 sp4 [place] Coma Score: 23:38 Eye Response: spontaneous(4). Motor Response: obeys commands(6). Verbal Response: sp4 oriented(5). Total: 15. MDM: 20:17 Patient medically screened. 08/08 08:35 Differential diagnosis: cardiac arrhythmia, generalized weakness, hyperventilation, sp4 hypovolemia, idiopathic dizziness, near-syncope, sepsis, syncope. Data reviewed: vital signs, nurses notes, old medical records, lab test result(s), EKG, radiologic studies, plain films. Consideration of Admission/Observation Patient was admitted/placed on observation. Escalation of care including admission/observation considered. Management of patient was discussed with the following: Hospitalist: Discussed with admitting hospitalist. ED course: X-ray revealed no acute cardiopulmonary process. Labs basically unremarkable.. Secondary to risk factors patient warrants work-up for near syncopal episode. Patient discussed with internal medicine admission team and accepted for admission for near syncope work-up. . 08/07 20:16 Order name: Basic Metabolic Panel; Complete Time: 22:34 4 08/07 20:16 Order name: CBC with Diff; Complete Time: 22:34 4 08/07 20:16 Order name: LFT's; Complete Time: 22:34 4 08/07 20:16 Order name: Magnesium; Complete Time: 22:34 sp4 08/07 20:16 Order name: NT PRO-BNP; Complete Time: 22:34 sp4 08/07 20:16 Order name: PT-INR; Complete Time: 22:34 4 08/07 20:16 Order name: Troponin HS; Complete Time: 22:34 sp4 08/07 20:27 Order name: CK; Complete Time: 08:37 sp4 08/07 23:33 Order name: TSH sp4 08/07 23:33 Order name: T4 Free sp4 08/07 23:34 Order name: SARS RAPID; Complete Time: 08:37 sp4 08/07 23:34 Order name: Influenza Screen (a \T\ B); Complete Time: 08:37 sp4 08/08 00:52 Order name: T4 Free; Complete Time: 08:37 EDMS 08/08 00:53 Order name: Thyroid Stimulating Hormone; Complete Time: 08:37 EDMS 08/07 20:16 Order name: XRAY Chest (1 view); Complete Time: 22:34 sp4 08/07 20:16 Order name: EKG; Complete Time: 20:17 sp4 08/07 20:16 Order name: Cardiac monitoring; Complete Time: 22:19 sp4 08/07 20:16 Order name: EKG - Nurse/Tech; Complete Time: 21:08 sp4 08/07 20:16 Order name: IV Saline Lock; Complete Time: 20:47 sp4 08/07 20:16 Order name: Labs collected and sent; Complete Time: 20:47 sp4 08/07 20:16 Order name: O2 Per Protocol; Complete Time: 22:18 sp4 08/07 20:16 Order name: O2 Sat Monitoring; Complete Time: 22:18 sp4 EC/18 23:27 Rate is 82 beats/min. Rhythm is regular, Normal Sinus Rhythm. QRS [place] is Normal. [place] sp4 interval is prolonged. QRS interval is prolonged. QT interval is normal. No Q waves. T waves are Normal. No ST changes noted. Clinical impression: No evidence of ischemia. Interpreted by me. Reviewed by me. Administered Medications: 23:00 Drug: Tetanus-Diphtheria Toxoid IM Adult 0.5 ml IM once; Provide Vaccine Information bp Statement (VIS). {Mold Setter: [employer] ([employer]). Exp: 03/09/2025. Lot #: [id number]. } Route: IM; Site: right deltoid; 23:01 Follow up: Response: No adverse reaction bp 08/08 00:23 Drug: Meclizine PO 25 mg PO once Route: PO; bp 00:23 Follow up: Response: No adverse reaction bp Disposition Summary: 08/07/23 23:38 Hospitalization Ordered Notes: Hospitalization Status: Inpatient Admission sp4 Provider: Issac Coffman Location: Telemetry/MedSurg (observation) sp4 Condition: Stable sp4 Problem: new sp4 Symptoms: are unchanged sp4 Bed/Room Type: Standard sp4 Room Assignment: 404(08/07/23 23:49) cg Diagnosis - Syncope Near sp4 - Hypertensive urgency, near syncopal episode, dizziness, morbid obesity sp4 Forms: - Medication Reconciliation Form sp4 - SBAR form sp4 - Leadership Thank You Letter sp4 NIH Stroke Scale - NIH Stroke Score Date: 08/07/2023 Time: 23:38 Total Score = 0 10. Dysarthria (speech clarity - read or repeat words) - 0(Normal) 11. Extinction and Inattention (visual/tactile/auditory/spatial/personal) - 0(No abnormality) 1a. Level of Consciousness (LOC) - 0(Alert) 1b. Level of Consciousness (LOC) (Month \T\ Age) - 0(Both) 1c. LOC Commands (Open \T\ Closes Eyes/Hotel Yardperson) - 0(Both) 2. Best Gaze (Lateral Gaze Paresis) - 0(Normal) 3. Visual Field Loss - 0(No visual loss) 4. Facial Palsy - 0(Normal) 5a. Left Arm: Motor (10-second hold) - 0(No drift) 5b. Right Arm: Motor (10-second hold) - 0(No drift) 6a. Left Leg: Motor (5-second hold - always test supine) - 0(No drift) 6b. Right Leg: Motor (5-second hold - always test supine) - 0(No drift) 7. Limb Ataxia (finger/nose \T\ heel/dougherty - test with eyes open) - 0(Absent) 8. Sensory Loss (pinprick arms/legs/face) - 0(Normal) 9. Best Language: Aphasia (description/naming/reading) - 0(No aphasia) Initials: sp4 Signatures: Dispatcher [employer] Analilia Sandoval, RN RN cg Jose Joseph RN RN bp Potepalov, Sergey, MD MD sp4 Barbara Ortega RN RN me1 Corrections: (The following items were deleted from the chart) 08/07 23:49 23:38 sp4 cg
--- NOTE | 2023-08-07 23:39 | ER ---
Nurse's Notes [facility] Name: Grupo Mcdonald Jr Age: 62 yrs Sex: Male : 1960 Arrival Date: 08/07/2023 Time: 20:10 Bed IW10 Private MD: Diagnosis: Syncope Near;Hypertensive urgency, near syncopal episode, dizziness, morbid obesity Presentation: 08/07 20:21 Chief complaint: Patient states: c/o dizziness x 3 weeks, lost his balance today and me1 fell up against a tree. states he just hasn't felt well lately. Coronavirus screen: Vaccine status: Patient reports being unvaccinated. Ebola Screen: No symptoms or risks identified at this time. Initial Sepsis Screen: Does the patient meet any 2 criteria? No. Patient's initial sepsis screen is negative. Does the patient have a suspected source of infection? No. Patient's initial sepsis screen is negative. Risk Assessment: Do you want to hurt yourself or someone else?. Onset of symptoms is unknown. 20:21 [place] Of [place] [facility] [place] Acuity: MARTY 3 me1 Triage Assessment: 08/08 00:00 General: Appears in no apparent distress. Behavior is calm, cooperative, appropriate bp for age. Pain: Denies pain. Neuro: Reports dizziness. Historical: - Allergies: 08/07 20:27 Codeine; me1 20:27 Vicodin; me1 - PMHx: 20:27 Cellulitis; Gout; Hypertension; lymphedema; Pre Diabetes; Psoriatic Arthritis; stroke; me1 asbestosis; - PSHx: 20:27 Appendectomy; me1 - Immunization history:: Adult Immunizations up to date. - Social history:: Smoking status: Patient denies any tobacco usage or history of. - Family history:: not pertinent. Screenin/19 00:32 [facility] ED Fall Risk Assessment (Adult) History of falling in the last 3 months, bp including since admission No falls in past 3 months (0 pts). Abuse screen: Denies threats or abuse. Denies injuries from another. Nutritional screening: No deficits noted. Tuberculosis screening: No symptoms or risk factors identified. Assessment: 00:32 General: ADMIT COMPLETED. bp Vital Signs: 08/07 20:21 BP 161 / 86; Pulse 92; Resp 20; Temp 98.7(TE); Pulse Ox 99% on R/A; Weight 186.88 kg; me1 Height 6 ft. 0 in. ; 08/08 00:31 BP 139 / 69; Pulse 78; Resp 16; Pulse Ox 98% ; bp 08/07 20:21 Body Mass Index 55.88 (186.88 kg, 182.88 cm) me1 [place] Coma Score: 08/07 23:38 Eye Response: spontaneous(4). Motor Response: obeys commands(6). Verbal Response: sp4 oriented(5). Total: 15. NIH Stroke Scale Scores: 23:38 NIHSS Score: 0 sp4 ED Course: 20:14 Patient arrived in ED. cc5 20:16 Gokul Del Cid MD is Attending Physician. sp4 20:27 Triage completed. me1 20:27 Arm band placed on Patient placed in waiting room. me1 20:47 Basic Metabolic Panel Sent. bc6 20:47 CBC with Diff Sent. bc6 20:47 LFT's Sent. bc6 20:47 Magnesium Sent. bc6 20:47 NT PRO-BNP Sent. bc6 20:47 PT-INR Sent. bc6 20:47 Troponin HS Sent. bc6 20:47 Inserted saline lock: 22 gauge in right hand, using aseptic technique. Blood collected. bc6 21:08 CK Sent. bc6 21:08 Basic Metabolic Panel Sent. bc6 21:08 CBC with Diff Sent. bc6 21:08 LFT's Sent. bc6 21:08 Magnesium Sent. bc6 21:08 NT PRO-BNP Sent. bc6 21:08 PT-INR Sent. bc6 21:08 Troponin HS Sent. bc6 21:15 XRAY Chest (1 view) In Process Unspecified. EDMS 22:04 Jose Joseph, RN is Primary Nurse. bp 23:38 Issac Coffman MD is Hospitalizing Provider. sp4 08/08 00:32 No provider procedures requiring assistance completed. Patient admitted, IV remains in bp place. Administered Medications: 08/07 23:00 Drug: Tetanus-Diphtheria Toxoid IM Adult 0.5 ml IM once; Provide Vaccine Information bp Statement (VIS). {Window Shade Cutter And Mounter: [employer] ([employer]). Exp: 03/09/2025. Lot #: [id number]. } Route: IM; Site: right deltoid; 23:01 Follow up: Response: No adverse reaction bp 08/08 00:23 Drug: Meclizine PO 25 mg PO once Route: PO; bp 00:23 Follow up: Response: No adverse reaction bp Outcome: 08/07 23:38 Decision to Hospitalize by Provider. sp4 08/08 00:31 Admitted to Med/surg accompanied by tech, via wheelchair, room 404, with chart, Report bp called to AUBREY ORTIZ Condition: stable Instructed on the need for admit, 03:07 Patient left the ED. as6 NIH Stroke Scale - NIH Stroke Score Date: 08/07/2023 Time: 23:38 Total Score = 0 10. Dysarthria (speech clarity - read or repeat words) - 0(Normal) 11. Extinction and Inattention (visual/tactile/auditory/spatial/personal) - 0(No abnormality) 1a. Level of Consciousness (LOC) - 0(Alert) 1b. Level of Consciousness (LOC) (Month \T\ Age) - 0(Both) 1c. LOC Commands (Open \T\ Closes Eyes/Rivet Sorter) - 0(Both) 2. Best Gaze (Lateral Gaze Paresis) - 0(Normal) 3. Visual Field Loss - 0(No visual loss) 4. Facial Palsy - 0(Normal) 5a. Left Arm: Motor (10-second hold) - 0(No drift) 5b. Right Arm: Motor (10-second hold) - 0(No drift) 6a. Left Leg: Motor (5-second hold - always test supine) - 0(No drift) 6b. Right Leg: Motor (5-second hold - always test supine) - 0(No drift) 7. Limb Ataxia (finger/nose \T\ heel/dougherty - test with eyes open) - 0(Absent) 8. Sensory Loss (pinprick arms/legs/face) - 0(Normal) 9. Best Language: Aphasia (description/naming/reading) - 0(No aphasia) Initials: sp4 Signatures: Dispatcher [employer] Jose Kang RN RN bp Federico Gonsalez RN RN as6 Mora Dotson cc5 Pat Rosa Sergey, MD MD sp4 Barbara Ortega RN RN me1
--- NOTE | 2023-08-07 23:43 | P.HP ---
Certification for Inpatient Patient admitted to: Inpatient With expected LOS: <2 Midnights Patient will require the following post-hospital care: None Practitioner: I am a practitioner with admitting privileges, knowledge of patient current condition, hospital course, and medical plan of care. Services: Services provided to patient in accordance with Admission requirements found in Title 42 Section 412.3 of the Code of Federal Regulations Patient History Date of Service: 08/08/23 History of Present Illness: 8-year-old male with a past medical history of hypertension, lymphedema, gout, cellulitis, Psoriatic arthritis, stroke, asbestosis; presents to the emergency room with dizziness, hypertension. He reports blood pressure at home was 180/112, he reported dizziness with fall, abrasion to the right hand, contusion to the left temporal scalp. Patient is morbidly obese too heavy for the CT scan. He denied chest pain, nausea vomiting, abdominal pain, edema, shortness of breath, dysuria, fever or chills. Plan to admit for hypertensive urgency, near syncope. Morbid obesity, dizziness. ED evaluation. Rate is 82 beats/min. Rhythm is regular, Normal Sinus Rhythm. QRS [place] is Normal. NC interval is prolonged. QRS interval is prolonged. QT interval is normal. No Q waves. T waves are Normal. No ST changes noted. Clinical impression: No evidence of ischemia, first-degree AV block, right bundle branch block.chest x rayIMPRESSION: No acute cardiopulmonary process. NIH stroke score 0, BP 161 / 86; Pulse 92; Resp 20; Temp 98.7(TE); Pulse Ox 99% on R/A troponin normal 14.2, BNP 214, mild hyponatremia 133, mild hypokalemia 3.4, CBC unremarkable Allergies codeine Allergy (Verified 07/19/23 08:13) Shortness of breath acetaminophen [From Vicodin] Adverse Reaction (Intermediate, Verified 07/19/23 08:13) Shortness of breath hydrocodone bitartrate [From Vicodin] Adverse Reaction (Intermediate, Verified 07/19/23 08:13) Shortness of breath Home Medications: Colchicine [Colcrys *] 0.6 mg PO SEECOM PRN 02/14/23 NIFEdipine [Nifedipine ER] 90 mg PO BEDTIME 02/14/23 Olmesartan/Hydrochlorothiazide [Olmesartan-Hctz 40-25 mg Tab] 1 tab PO DAILY 02/14/23 Allopurinol 300 mg PO DAILY 04/08/23 Hydralazine [Apresoline*] 20 mg PO DAILY 04/08/23 Amox/Clavulanate [Augmentin 875-125 Tab] 875 mg PO BID #14 tab 04/10/23 Doxycycline Hyclate [Vibramycin] 100 mg PO BID #14 cap 04/10/23 Furosemide [Lasix] 40 mg PO BIDL #42 tab 04/10/23 Mupirocin Calcium [Bactroban Nasal*] 1 appl SAE BID #1 tube 04/10/23 Potassium Chloride 20 meq PO DAILY #30 tab 04/10/23 - Past Medical/Surgical History Diabetic: No -: HTN -: Chronic lymphedema -: Morbid obesity -: History of asbestosis exposure -: History of CVA -: Gout -: Psoriatic arthritis -: appendectomy -: carpaltunnel surg in L hand -: L knee "clean up" -: vein procedure in Both legs -: Cataract Sx Psychosocial/ Personal History: Patient lives with son. He is a - Family History Mother -: Heart disease, Hypertension Father -: Cancer Notes: lung cancer - Social History Alcohol use: No CD- Drugs: No Caffeine use: Yes Review of Systems 10-point ROS is otherwise unremarkable Physical Examination - Studies Laboratory Data (last 24 hrs) 08/07/23 08/07/23 08/07/23 20:40 20:40 20:40 WBC 6.60 Hgb 14.8 Hct 42.6 Plt Count 220 PT 12.1 INR 1.10 Sodium 133 L Potassium 3.4 L BUN 17 Creatinine 1.01 Glucose 108 H Magnesium 1.8 Total Bilirubin 0.5 AST 14 L ALT 28 Alkaline Phosphatase 75 Assessment and Plan - Plan Assessment and plan hypertensive urgency near syncope Morbid obesity dizziness Mild hypokalemia Mild hyponatremia History of diverticulitis History of cellulitis History of lymphedema DVT prophylaxis Assessment and plan hypertensive urgency near syncope Dizziness Cardiology consult, echo, carotid Doppler ordered, lipid panel, A1c ordered BP 161 / 86; Pulse 92; Resp 20; Temp 98.7(TE); Pulse Ox 99% on R/A ED evaluationRate is 82 beats/min. Rhythm is regular, Normal Sinus Rhythm. QRS [place] is Normal. NC interval is prolonged. QRS interval is prolonged. QT interval is normal. No Q waves. T waves are Normal. No ST changes noted. Clinical impression: No evidence of ischemia, first-degree AV block, right bundle branch block. Unable to fit in the CT due to morbid obesity chest x rayIMPRESSION: No acute cardiopulmonary process. troponin normal 14.2, BNP 214, NIH stroke score 0, Mild hypokalemia Mild hyponatremia Trend electrolytes replace as needed mild hyponatremia 133, mild hypokalemia 3.4, CBC unremarkable Morbid obesity Dietitian consult Full code DVT Lovenox Diet n.p.o. after midnight Discharge Plan: Home Plan to discharge in: 48 Hours - Advance Directives Does patient have a Living Will: No Does patient have a Durable POA for Healthcare: No - Code Status/Comfort Care Code Status: Full Code Physician Review: Patient Assessed, Agree with Above Assessment and Plan Critical Care: No Time Spent Managing Pts Care (In Minutes): 50
[2023-08-08] MEDS ORDERED: MECLIZINE HCL 12.5 MG TAB ONE (00:24)
[2023-08-08 00:52] LABS: Thyroid Stimulating Hormone 2.49 uIU/mL (0.358-3.740)
[2023-08-08 00:58] LABS: SARS-CoV-2 Antigen Rapid Res Negative (Negative)
[2023-08-08] MEDS ORDERED: HYDRALAZINE HCL 20 MG/ML VIAL IV PRN (01:42)
[2023-08-08] MEDS ORDERED: ACETAMINOPHEN 500 MG TAB PO PRN (01:42)
[2023-08-08] MEDS ORDERED: POTASSIUM 25 MEQ EFFERV TAB PO ONE (01:42)
[2023-08-08] MEDS ORDERED: ONDANSETRON 4 MG/2 ML VIAL IV PRN (01:42)
[2023-08-08] MEDS ORDERED: ACETAMINOPHEN 325 MG TABLET ONE (01:55)
[2023-08-08 03:20] VITALS: O2SAT 98
[2023-08-08 03:55] LABS: Absolute Lymphocytes (CBC) 1.4 K/uL (0.7-4.9); Hematocrit 42.3 % (39.6-49.0); Lymphocytes % 23.2 % (15.3-44.8); MCV 90.6 fL (80-100); MPV 8.6 fL (7.6-11.3); Platelets 207 thou/uL (152-406); RBC Red Blood Cell Count 4.67 M/uL (4.33-5.43)
[2023-08-08 04:09] LABS: Magnesium 2.1 mg/dL (1.6-2.4); Potassium 3.1 mEq/L (3.5-5.1); Troponin High Sensitivity 15.6 pg/mL (<58.9)
[2023-08-08 04:20] VITALS: BMI 55.3
--- NOTE | 2023-08-08 08:36 | RAD REPORT ---
EXAM DESCRIPTION: US - CP - 08/08/2023 5:36 am CLINICAL HISTORY: syncope COMPARISON: Carotid Artery Bilateral dated 10/24/2017 TECHNIQUE: Real-time sonographic grayscale, color duplex, and spectral wave Doppler evaluation of [facility] carotid systems was performed. FINDINGS: Normal high resistance waveforms are noted in both external carotid arteries. The common c arotid arteries and internal carotid arteries show normal low resistance waveforms. Mild mixed echogenicity plaque formation, most notably at the carotid bulbs, with some calcified plaq ue. Peak systolic velocity less than 125 cm/ sec bilaterally. ICA/CCA peak systolic ratios less than 2.0 bilaterally. Antegrade flow seen in both vertebral arteries. IMPRESSION: Mild burden of atherosclerotic changes noted. Less than 50% ICA stenosis bilaterally. Evaluation of carotid artery stenosis, if any, is reported based on consensus recommendations of the Society of Radiologists in Ultrasound (Aleksandr et al., Radiology, 2003)
--- NOTE | 2023-08-08 11:09 | P.DS ---
Admission Date: 08/07/23 Discharge Date: 08/08/23 Disposition: ROUTINE DISCHARGE Discharge Condition: FAIR - Problems (1) Hypertensive urgency Status: Acute (2) History of CVA (cerebrovascular accident) Status: Acute (3) Morbid (severe) obesity due to excess calories Status: Chronic Brief History of Present Illness: 62-year-old male with a past medical history of hypertension, lymphedema, gout, cellulitis, Psoriatic arthritis, stroke, asbestosis; presented to the emergency room with dizziness, palpitation and elevated blood pressure. He reported blood pressure at home was 180/112, he reported dizziness with fall, abrasion to the right hand, contusion to the left temporal scalp. Patient is morbidly obese too heavy for the CT scan. He denied chest pain, nausea vomiting, abdominal pain, edema, shortness of breath, dysuria, fever or chills. Plan to admit for hypertensive urgency, near syncope. EKG in the ED demonstrated normal sinus rhythm, first-degree AV block, right bundle branch block. Chest x-ray showed no acute cardiopulmonary process. Blood work showed troponin 14.2, BNP 214, mild hyponatremia 133, mild hypokalemia 3.4, CBC unremarkable. Patient was hospitalized for further management. Hospital Course: Patient placed under observation on the medical floor. His initial troponin was negative. His blood pressure normalized and patient became asymptomatic. Patient was seen and evaluated by cardiology Dr. Yan, echocardiogram was done results to be followed by cardiology. No ACS, hypertension has significantly improved, patient is ambulatory and denies any weakness. Patient is discharged to follow-up with cardiology Dr. Yan. No changes in his home medications. Vital Signs/Physical Exam: Temp Pulse Resp BP Pulse Ox 97.0 F 76 18 110/67 96 08/08/23 08:00 08/08/23 08:00 08/08/23 08:00 08/08/23 08:00 08/08/23 08:00 General: Alert, In no apparent distress, Oriented x3, Obese HEENT: Mucous membr. moist/pink Neck: JVD not distended Respiratory: Clear to auscultation bilaterally, Normal air movement Cardiovascular: No edema, Regular rate/rhythm, Normal S1 S2 Gastrointestinal: Normal bowel sounds, Soft and benign, Non-distended, No tenderness Musculoskeletal: No swelling Integumentary: No rashes, No cyanosis Neurological: Normal strength at 5/5 x4 extr, Cranial nerves 3-12 intact Laboratory Data at Discharge: WBC 6.10 thou/uL (4.3-10.9) 08/08/23 02:45 Hgb 14.4 g/dL (13.6-17.9) 08/08/23 02:45 Hct 42.3 % (39.6-49.0) 08/08/23 02:45 Plt Count 207 thou/uL (152-406) 08/08/23 02:45 PT 12.1 SECONDS (9.5-12.5) 08/07/23 20:40 INR 1.10 08/07/23 20:40 Sodium Cancelled 08/08/23 05:00 Potassium Cancelled 08/08/23 05:00 BUN Cancelled 08/08/23 05:00 Creatinine Cancelled 08/08/23 05:00 Glucose Cancelled 08/08/23 05:00 Magnesium Cancelled 08/08/23 05:00 Total Bilirubin 0.5 mg/dL (0.2-1.0) 08/07/23 20:40 AST 14 U/L (15-37) L 08/07/23 20:40 ALT 28 U/L (16-61) 08/07/23 20:40 Alkaline Phosphatase 75 U/L (45-117) 08/07/23 20:40 Triglycerides 82 mg/dL (<150) 08/08/23 02:45 Triglycerides Cancelled 08/08/23 02:45 Cholesterol 155 mg/dL (<200) 08/08/23 02:45 Cholesterol Cancelled 08/08/23 02:45 HDL Cholesterol 39 mg/dL (40-60) L 08/08/23 02:45 HDL Cholesterol Cancelled 08/08/23 02:45 Cholesterol/HDL Ratio 3.97 08/08/23 02:45 Cholesterol/HDL Ratio Cancelled 08/08/23 02:45 Home Medications: Colchicine [Colcrys *] 0.6 mg PO SEECOM PRN 02/14/23 NIFEdipine [Nifedipine ER] 90 mg PO BEDTIME 02/14/23 Olmesartan/Hydrochlorothiazide [Olmesartan-Hctz 40-25 mg Tab] 1 tab PO DAILY Allopurinol 300 mg PO DAILY 04/08/23 Diet: ADA Activity: Ad bello Followup: Quirino Talbot MD [Primary Care Provider] - Omer Yan MD [ACTIVE - CAN ADMIT] - 1-2 Weeks Time spent managing pt's care (in minutes): 26
[2023-08-08 12:02] VITALS: BP 149/75; TEMP 98
--- NOTE | 2023-08-08 18:49 | CON ---
Date of Consultation: 08/08/2023 Reason For Consultation: Near syncope. History Of Present Illness: This is a 62-year-old male with past medical history of hypertension, CV A, obesity, presented to the emergency room after a near syncopal episode, felt dizzy as blood pressu re was low, and reported falling, hitting his scalp. No loss of consciousness, but his blood pressur e drops too often and he is on antihypertensive medications. At the present time, he has no symptoms . No chest pain. No palpitations. No shortness of breath. Past Medical History: As outlined above in the HPI. Medications: Refer to reconciliation sheet for detailed list. Allergies: CODEINE AND ACETAMINOPHEN. Family History: No premature coronary artery disease or cancer. Social History: Does not smoke or drink. Does not use any drugs. Review of Systems: All systems reviewed and they were negative except what mentioned in HPI. Physical Examination: Vital Signs: Reviewed. Head and Neck: Pupils are equal, reactive to light. Intact eye movements. No JVD. No cervical lym phadenopathy. Neck is supple. Thyroid is not enlarged. Lungs: Clear to auscultation bilaterally. No rhonchi, wheezing, or crackles. No accessory muscle u se. Heart: Regular rate and rhythm with faint aortic systolic murmur. Abdomen: Soft, nontender. Bowel sounds positive. No organomegaly. No masses or hernia. No rigidi ty or rebound. Extremities: No edema, clubbing, or cyanosis. Intact pulses. Skin: No rash. Neurologic: Alert, awake, oriented x3. No acute focal deficits appreciated. Investigations: BUN 17, creatinine 0.98. Cardiac enzymes are negative and hemoglobin is 14.4. Assessment And Recommendations: 1.Near syncope, likely due to a low blood pressure. Cut down on his antihypertensive medications an d obtain echo. If it is normal, the patient can be released and follow up as an outpatient where we will obtain a 1-week Holter monitor to further evaluate. 2.Hypertension. Blood pressure is back up and the patient is feeling much better. He probably does not need antihypertensive agents. Asked him to followup as an outpatient and then we will decide on this matter further. /LAURA Voice ID: [id number] Report ID: [id number]
--- NOTE | 2023-08-09 07:00 | ECHO ---
HEIGHT: 6 ft 0 in WEIGHT: 408 lb 0 oz DATE OF STUDY: 08/08/[address]: Eveline Deng BUMBOATERCj 2-DIMENSIONAL: YES M.MODE: YES DOPPLER: YES COLOR FLOW: YES TDS: YES PORTABLE: YES DEFINITY: BUBBLE STUDY: DIAGNOSIS: SYNCOPE CARDIAC HISTORY: CATHERIZATION: NO SURGERY: NO PROSTHETIC VALVE: NO PACEMAKER: NO MEASUREMENTS (cm) DIASTOLIC (NORMALS) SYSTOLIC (NORMALS) IVSd 1.4 (0.6-1.2) LA Diam 2.9 (1.9-4.0) LVEF 50% LVIDd 5.1 (3.5-5.7) LVIDs 3.9 (2.0-3.5) %FS 24% LVPWd 1.5 (0.6-1.2) Ao Diam 3.2 (2.0-3.7) 2 DIMENSIONAL ASSESSMENT: RIGHT ATRIUM: NORMAL LEFT ATRIUM: NORMAL RIGHT VENTRICLE: NORMAL LEFT VENTRICLE: APPEARS NORMAL TRICUSPID VALVE: MILD TRICUSPID REGURGITATION MITRAL VALVE: NORMAL PULMONIC VALVE: MILD PULMONIC INSUFFICIENCY AORTIC VALVE: NORMAL PERICARDIAL EFFUSION: NONE AORTIC ROOT: NORMAL LEFT VENTRICULAR WALL MOTION: UNABLE TO EVALUATE DOPPLER/COLOR FLOW: SEE BELOW COMMENTS: 1. VERY POOR STUDY 2. OVERALL LEFT VENTRICULAR EJECTION FRACTION APPEARS LOW NORMAL, RECOMMEND CONTRAST ECHOCARDIOGRAM. TECHNOLOGIST: ADRIENNE LOW
--- NOTE | 2023-08-09 14:39 | EKG ---
Test Date: 2023-08-07 Test Time: 21:04:59 School Guidance Counselor: [place] MEASUREMENT RESULTS: Intervals: Rate: 82 OH: 322 QRSD: 166 QT: 386 QTc: 450 [place]: P: 38 OH: 322 QRS: 138 T: 11 INTERPRETIVE STATEMENTS: Sinus rhythm with 1st degree AV block Right bundle branch block Abnormal ECG Compared to ECG 06/25/2023 16:05:03 No significant changes Electronically Signed On 08-09-23 14:33:23 CDT by Omer Yan
== END 2023-08-08 13:00 | disposition home or self-care (01) ==
LOC: ER 20:10 → 4TH 23:43 → INTOOBSV 23:43
PROVIDERS: ADMIT Internal Medicine; ATTEND Internal Medicine
DX: I16.0 Hypertensive urgency (principal); I10 Essential (primary) hypertension; I89.0 Lymphedema, not elsewhere classified; M10.9 Gout, unspecified; L40.50 Arthropathic psoriasis, unspecified; J61 Pneumoconiosis due to asbestos and other mineral fibers; R55 Syncope and collapse; R42 Dizziness and giddiness; E87.6 Hypokalemia; E87.1 Hypo-osmolality and hyponatremia; E66.01 Morbid (severe) obesity due to excess calories; Z68.43 Body mass index [BMI] 50.0-59.9, adult; Z86.73 Personal history of transient ischemic attack (TIA), and cerebral infarction without residual deficits; Z88.6 Allergy status to analgesic agent; Z82.49 Family history of ischemic heart disease and other diseases of the circulatory system; Z80.1 Family history of malignant neoplasm of trachea, bronchus and lung; Z71.3 Dietary counseling and surveillance; Z20.822 Contact with and (suspected) exposure to COVID-19
CPT/HCPCS: 93005; 93306; 85025 ×2; 80048 ×2; 36415; 83735 ×2; 82550; 84132; 85610; 80061; 80076; 84443; 83036; 84484 ×3; 84439; 83880; 87804 ×2; 71045; 93880; 87811; J8597; G0378

== ENCOUNTER 2023-10-08 19:00 | Emergency (ER) | payer OTHER ==
--- OUTSIDE RECORDS SUMMARY | 2023-10-08 19:03 | XMS REPORT | Continuity of Care Document ---
:1960 Author Organization [facility] t Address [address] [place] [address] Care Team Providers Name Role Phone RADHA QUIRINO A Primary Care Physician Unavailable STACIE MOSS Attending Clinician Unavailable Stacie Moss MD Attending Clinician [phone] LILIANE GALICIA Attending Clinician Unavailable Liliane Galicia MD Attending Clinician Doctor Unassigned, [place] Attending Clinician Unavailable Christal Joshua MD Attending Clinician CHRISTAL JOSHUA Attending Clinician Unavailable Only, Adc Test Attending Clinician Unavailable Pob, Ad[facility] Lab Main Attending Clinician Unavailable Aman Ardon MD Attending Clinician AMAN ARDON Attending Clinician Unavailable STACIE MOSS Admitting Clinician Unavailable LILIANE GALICIA Admitting Clinician Unavailable Christal Joshua MD Admitting Clinician CHRISTAL JOSHUA Admitting Clinician Unavailable Aman Ardon MD Admitting Clinician AMAN ARDON Admitting Clinician Unavailable Payers Payer Name Policy Type Policy Number Effective Date Expiration Date Lillian davidcecilia LUKASZ/KACIE [id number] 2021 MEDICARE ADVANTAGE 00:00:00 Problems This patient has no known problems. Allergies, Adverse Reactions, Alerts Allergy Allergy Status Severity Reaction(s) Onset Inactive Treating Comm ents Source Name Type Date Date Clinician Hydrocod Propensi Active Unknown - Shakes Uni vers one-Acet ty to See comments 08-16 it y of aminophe adverse 00:00: [place] n reaction 00 Medical s Branch HYDROCOD DRUG Active Unknown-Cmnt [place] ONE-ACET 08-16 ity of AMINOPHE 00:00: [place] N 00 Medical Branch Codeine Propensi Active Nausea 2014-11 Univers ty to and/or 0-20 ity of adverse Vomiting 00:00: [place] reaction 00 Medical s to Branch drug CODEINE DRUG Active Med N/V 2014-11 Univers INGREDI 0-20 ity of 00:00: [place] 00 [facility] Social History Social Habit Start Date Stop Date Quantity Comments Source Exposure to Not sure [facility] SARS-CoV-2 (event) [facility] 2023-08-19 2023-08-19 Current University of 00:00:00 00:00:00 non-drinker of [facility] alcohol Branch (finding) History of Social 2021-11-04 2021-11-04 Univers ity of function 00:00:00 00:00:00 [facility] Tobacco use and 2015-09-08 2015-09-08 Smokeless Universit y of exposure 00:00:00 00:00:00 tobacco non-user [facility] Sex Assigned At [birth year] Universit y of 00:00:00 00:00:00 [facility] Smoking Status Start Date Stop Date Source Never smoked tobacco [facility] Medications Ordered Filled Start Stop Current Ordering Indication Dosage Frequency Signature Comments Components Source Medication Medication Date Date Medication? Clinician (SIG) Name Name vancomycin 2022- No 15mg/kg 1,500 mg Univers (VANCOCIN) 08-19 (rounded ity of 1,500 mg in 21:45: 23:28 from [place] NaCl 0.9% 00 :00 2,779.5 mg Medi cj (NS) 500 mL = 15 mg/kg Br anch VIAL-MATE ?185.3 IV kg), IV piggyback Piggyback, ONCE, 1 dose, On 08/19/23 at 1645, Administer over 90 Minutes, 500 mL
Reas on for Anti-Infec tive: Documented Infection& lt;br>Docu mented Infection Site: Skin / Soft Tissue
Duration of Therapy: Other (see Comments) clindamycin 2022- Yes [id number] 450mg Take 3 Univers 150 mg 08-19 [id number] capsules ity of capsule 00:00: 04:59 by mouth 4 Abraham as 00 :00 (four) Medical times [place] daily for 10 days. iopamidol 2022- No [id number] 100mL 100 mL, Univers (ISOVUE 08-14 Intravenou ity o f 370-500 mL) 19:00: 18:10 s, ONCE, 1 [place] injection 00 :00 dose, On Medica l 100 mL Mon [place] 08/14/23 at 1400, Routine water for 2020-11 Yes PRN, Univers irrigation 2-16 Starting ity o f irrigation 15:49: on Mariajose [place] solution 00 11/04/21 Medical at 09, [place] Until Discontinu ed, Routine, Intra-op neomycin-po 2020-11 Yes PRN, Univer s lymyxin-dex 2-16 Starting ity of amethasone 15:49: on Mariajose [place] (MAXITROL) 00 11/04/21 Medic al 3.5 at 0949, [place] mg/g-10,000 Until unit/g-0.1 Discontinu % ed, ophthalmic Routine, ointment Intra-op gentamicin 2020-11 Yes PRN, Univers injection 2-16 Starting ity of 15:49: on Mariajose [place] 00 11/04/21 Medical at 0949, [place] Until Discontinu ed, AGUILA, Intra-op water for 2020-11- No PRN, Univers irrigation 2-16 -16 Starting ity of irrigation 15:49: 19:36 on [place] solution 00 :50 11/04/21 Medical at 0949, Branch Until Mariajose 11/04/21 at 1336, Routine, Intra-op neomycin-po 2020-11- No PRN, Unive rs lymyxin-dex 2-16 -16 Starting ity of amethasone 15:49: 19:36 on [facility] [place] (MAXITROL) 00 :50 11/04/21 Medic [...] Starting ity of VISCO 15:48: on Mariajose [place] ELASTIC) 3 00 11/04/21 Medic al %-4 %(0.5 at 0948, Branch mL) 1 % Until (0.55 mL) Discontinu intraocular ed, injection Routine, Intra-op dexamethaso 2020-11 Yes PRN, [facility] ne 01-05 Starting ity of (DECADRON 15:48: [...] injection Routine, Intra-op dexamethaso 2020-11- No PRN, Unive ne 01-05 Starting ity of (DECADRON 15:48: [...] Intra-op ceFAZolin 2020-11 Yes PRN, Univers (ANCEF) 2 Starting ity of injection 15:47: on Mariajose [place] 00 11/04/21 Medical at 0947, Branch Until Discontinu ed, AGUILA, Intra-op tetracaine 2020-11 Yes PRN, Univers (PONTOCAINE 01-05 Starting ity of ) 0.5 % 15:47: on Mariajose [place] ophthalmic 00 11/04/21 Medic al drops at 0947, Branch Until Discontinu ed, Routine, Intra-op ceFAZolin 2020-11- No PRN, Univers (ANCEF) 01-05 Starting ity of injection 15:47: 19:36 on Mariajose [place] 00 :50 11/04/21 Medical at 0947, Branch Until Mariajose 11/04/21 at 1336, AGUILA, Intra-op tetracaine 2020-11- No PRN, Univer s (PONTOCAINE 01-05 Starting ity of ) 0.5 % 15:47: 19:36 on Mariajose [place] ophthalmic 00 :50 11/04/21 Medic al drops at 0947, Branch Until Mariajose 11/04/21 at 1336, Routine, Intra-op eye block 2020-11 Yes PRN, Univers syringe 11 01-05 Starting ity o f mL 15:46: on Mariajose [place] 00 11/04/21 Medical at 0946, Branch Until Discontinu ed, Intra-op eye block 2020-11- No PRN, Univers syringe 11 -11-04 Starting ity of mL 15:46: 19:36 on Mariajose [place] 00 :50 11/04/21 Medical at 0946, Branch Until Mariajose 11/04/21 at 1336, Intra-op EPINEPHrine 2020-11 Yes PRN, Univer s (PF) 01-05 Starting ity of 1:1,000 (1 15:45: on [...] mL lactated 2020-11- No 1000mL at 42 [facility] rs ringers IV 2-16 12-16 mL/hr, ity of infusion 15:00: 15:01 1,000 mL, Abraham as 1,000 mL 00 :00 IV Medical Infusion, Branch ONCE, 1 dose, On Mariajose 11/04/21 at 0900, Routine, DSU Pre-op aspirin 81 2020-11 Yes 81mg Take 81 mg U nivers mg EC 2-16 by mouth ity of tablet 11:31: daily. [address] lisinopril 2020-11 Yes 20mg Take 20 mg U nivers (PRINIVIL,Z 2-16 by mouth 2 it y of ESTRIL) 20 11:31: (two) [place] mg tablet 49 times Medical daily. Branch verapamil 2020-11 Yes 120mg Take 120 Uni vers (ISOPTIN) 2-16 mg by ity of 120 mg 11:31: mouth 2 [place] tablet 49 (two) Medical times [place] daily. ALBUTEROL 2020-11 Yes [facility]. [facility] 2-16 ity of 11:31: [address] aspirin 81 2020-11 Yes 81mg Take 81 mg U nivers mg EC 2-16 by mouth ity of tablet 11:31: daily. [address] lisinopril 2020-11 Yes 20mg Take 20 mg U nivers (PRINIVIL,Z 2-16 by mouth 2 it y of ESTRIL) 20 11:31: (two) [place] mg tablet 49 times Medical daily. Branch verapamil 2020-11 Yes 120mg Take 120 Uni vers (ISOPTIN) 2-16 mg by ity of 120 mg 11:31: mouth 2 [place] tablet 49 (two) Medical times [place] daily. ALBUTEROL 2020-11 Yes Inhale. Unive rs INHALE 2-16 ity of 11:31: [address] aspirin 81 2020-11 Yes 81mg Take 81 mg U nivers mg EC 2-16 by mouth ity of tablet 11:31: daily. [address] lisinopril 2021-1 Yes 20mg Take 20 mg U nivers (PRINIVIL,Z 2-16 by mouth 2 it y of ESTRIL) 20 11:31: (two) [place] mg tablet 49 times Medical daily. Branch verapamil 2020-11 Yes 120mg Take 120 Uni vers (ISOPTIN) 2-16 mg by ity of 120 mg 11:31: mouth 2 [place] tablet 49 (two) Medical times [place] daily. ALBUTEROL 2020-11 Yes Inhale. Unive rs INHALE 2-16 ity of 11:31: [address] aspirin 81 2020-11 Yes 81mg Take 81 mg U nivers mg EC 2-16 by mouth ity of tablet 11:31: daily. [address] lisinopril 2020-11 Yes 20mg Take 20 mg U nivers (PRINIVIL,Z 2-16 by mouth 2 it y of ESTRIL) 20 11:31: (two) [place] mg tablet 49 times Medical daily. Branch verapamil 2020-11 Yes 120mg Take 120 Uni vers (ISOPTIN) 2-16 mg by ity of 120 mg 11:31: mouth 2 [place] tablet 49 (two) Medical times [place] daily. ALBUTEROL 2020-11 Yes Inhale. Unive rs INHALE 2-16 ity of 11:31: [address] aspirin 81 2020-11 Yes 81mg Take 81 mg U nivers mg EC 2-16 by mouth ity of tablet 11:31: daily. [address] lisinopril 2020-11 Yes 20mg Take 20 mg U nivers (PRINIVIL,Z 2-16 by mouth 2 it y of ESTRIL) 20 11:31: (two) [place] mg tablet 49 times Medical daily. Branch verapamil 2020-11 Yes 120mg Take 120 Uni vers (ISOPTIN) 2-16 mg by ity of 120 mg 11:31: mouth 2 [place] tablet 49 (two) Medical times [place] daily. ALBUTEROL 2020-11 Yes Inhale. Unive rs INHALE 2-16 ity of 11:31: [address] aspirin 81 2020-11 Yes 81mg Take 81 mg U nivers mg EC 2-16 by mouth ity of tablet 11:31: daily. [address] lisinopril 2020-11 Yes 20mg Take 20 mg U nivers (PRINIVIL,Z 2-16 by mouth 2 it y of ESTRIL) 20 11:31: (two) [place] mg tablet 49 times Medical daily. Branch verapamil 2020-11 Yes 120mg Take 120 Uni vers (ISOPTIN) 2-16 mg by ity of 120 mg 11:31: mouth 2 [place] tablet 49 (two) Medical times Branch daily. ALBUTEROL 2020-11 Yes Inhale. [facility] INHALE 2-16 ity of 11:31: [place] 49 [facility] Branch simethicone Yes PRN, [facility] s (GAS RELIEF 08-18 Starting ity of (SIMETHICON 14:10: on Mon [place] E)) 40 00 08/18/21 at Medical mg/0.6 mL 0910, Branch drops Until Discontinu ed, Routine, Intra-op simethicone 2020- No PRN, [facility] (GAS RELIEF 08-18 Starting ity of (SIMETHICON 14:10: 17:12 on Mon Abraham as E)) 40 00 :34 08/18/21 at Medical mg/0.6 mL 0910, Branch drops Until Mon08/18/21 at 1212, Routine, Intra-op lactated 2020- No 1000mL at 42 [facility] rs ringers IV 08-18 mL/hr, ity of infusion 13:15: 13:02 1,000 mL, [place] as 1,000 mL 00 :00 IV Medical Infusion, Branch ONCE, 1 dose, On Mon08/18/21 at 0815, Routine, DSU Pre-op lactated 2020- No 1000mL at 42 [facility] rs ringers IV 08-18 mL/hr, ity of infusion 13:15: 13:02 1,000 mL, [place] as 1,000 mL 00 :00 IV Medical Infusion, Branch ONCE, 1 dose, On Mon08/18/21 at 0815, Routine, DSU Pre-op aspirin 81 Yes 81mg Take 81 mg U nivers mg EC 08-18 by mouth ity of tablet 10:12: daily. [address] Branch lisinopril Yes 20mg Take 20 mg U [...] by mouth ity of tablet 10:12: daily. [address] Branch lisinopril Yes 20mg Take 20 mg U [...] by mouth ity of tablet 10:12: daily. [address] lisinopril Yes 20mg Take 20 mg [...] by mouth ity of tablet 10:12: daily. [address] Branch lisinopril Yes 20mg Take 20 mg U [...] by mouth ity of tablet 10:44: daily. [address] lisinopril 2014-11 Yes 20mg Take 20 mg U nivers (PRINIVIL,Z 0-22 by mouth 2 it y of ESTRIL) 20 10:44: (two) [place] mg tablet 23 times Medical daily. Branch verapamil 2014-11 Yes 120mg Take 120 Uni vers (ISOPTIN) 0-22 mg by ity of 120 mg 10:44: mouth 2 [place] tablet 23 (two) Medical times [place] daily. aspirin 81 2014-11 Yes 81mg Take 81 mg U nivers mg EC 0-22 by mouth ity of tablet 10:44: daily. [place] 23 [facility] lisinopril 2014-11 Yes 20mg Take 20 mg U nivers (PRINIVIL,Z 0-22 by mouth 2 it y of ESTRIL) 20 10:44: (two) [place] mg tablet 23 times Medical daily. Branch verapamil 2014-11 Yes 120mg Take 120 Uni vers (ISOPTIN) 0-22 mg by ity of 120 mg 10:44: mouth 2 [place] tablet 23 (two) Medical times [place] daily. Vital Signs Vital Name Observation Time Observation Value Comments Source Systolic blood 2023-08-20 00:00:00 141 mm[Hg] Univer sity [facility] Diastolic blood 2023-08-20 00:00:00 69 mm[facility]Hg] [facility] 2023-08-20 00:00:00 76 /min [facility] Respiratory rate 2023-08-20 00:00:00 16 /min [facility] Oxygen saturation in 2023-08-20 00:00:00 99 /min [facility] Arterial blood by [facility] Pulse oximetry [place] Body temperature 2023-08-19 18:43:00 37.22 [place] [facility] Body height 2023-08-19 18:43:00 182.9 cm [facility] Body weight 2023-08-19 18:43:00 185.294 kg [facility] BMI 2023-08-19 18:43:00 55.40 kg/m2 [facility] Systolic blood 2021-11-04 16:37:00 146 mm[Hg] Univer sity [facility] Diastolic blood 2021-11-04 16:37:00 69 mm[Hg] Unive rsity [facility] Oxygen saturation in 2021-11-04 16:37:00 99 /min University of Arterial blood by [place] [facility] Pulse oximetry Branch Heart rate 2021-11-04 16:30:00 71 /min [facility] [place] [facility] Respiratory rate 2021-11-04 16:30:00 24 /min Univ ers[facility] [place] [facility] Body temperature 2021-11-04 16:11:00 36.89 [place] Univ ers[facility] [place] [facility] Body height 2021-10-26 14:41:00 182.9 cm [facility] [place] [facility] Body weight 2021-10-26 14:41:00 204.1 kg [facility] [place] [facility] BMI 2021-10-26 14:41:00 61.01 kg/m2 Universi ty [facility] [place] [facility] Systolic blood 2021-11-04 16:37:00 146 mm[Hg] Univer sity of pressure [place] [facility] Diastolic blood 2021-11-04 16:37:00 69 mm[Hg] Unive rsity of pressure [place] [facility] Oxygen saturation in 2021-11-04 16:37:00 99 /min University of Arterial blood by [place] [facility] Pulse oximetry Branch Heart rate 2021-11-04 16:30:00 71 /min [facility]i ty [facility] [place] [facility] Respiratory rate 2021-11-04 16:30:00 24 /min Univ ersity of [place] [facility] Body temperature 2021-11-04 16:11:00 36.89 [place] Univ ers[facility] [place] [facility] Body height 2021-10-26 14:41:00 182.9 cm [facility] [place] [facility] Body weight 2021-10-26 14:41:00 204.1 kg [facility] [place] [facility] BMI 2021-10-26 14:41:00 61.01 kg/m2 Universi ty [facility] [place] [facility] Systolic blood 2021-08-18 15:00:00 158 mm[Hg] Univer sity of pressure [place] [facility] Diastolic blood 2021-08-18 15:00:00 90 mm[Hg] Unive rsity of pressure [place] [facility] Heart rate 2021-08-18 15:00:00 75 /min Universi ty [facility] [place] [facility] Respiratory rate 2021-08-18 15:00:00 20 /min Univ ersity [facility] [place] [facility] Oxygen saturation in 2021-08-18 15:00:00 100 /min [place] of Arterial blood by [facility] Pulse oximetry Branch Body temperature 2021-08-18 14:35:00 37.33 [place] [facility] Body height 2021-08-16 14:15:00 182.9 cm Universi ty [facility] Body weight 2021-08-16 14:15:00 204.119 kg Universi [facility] BMI 2021-08-16 14:15:00 61.03 kg/m2 Universi ty [facility] Systolic blood 2021-08-18 15:00:00 158 mm[Hg] Univer sit of [facility] Diastolic blood 2021-08-18 15:00:00 90 mm[Hg] [facility] Heart rate 2021-08-18 15:00:00 75 /min [facility] Respiratory rate 2021-08-18 15:00:00 20 /min [facility] Oxygen saturation in 2021-08-18 15:00:00 100 /min [place] of Arterial blood by [facility] Pulse oximetry Branch Body temperature 2021-08-18 14:35:00 37.33 [place] [facility] Body height 2021-08-16 14:15:00 182.9 cm Universi [facility] Body weight 2021-08-16 14:15:00 204.119 kg [facility] BMI 2021-08-16 14:15:00 61.03 kg/m2 [facility] Procedures Procedure Date / Time Performing Source Performed Clinician BLOOD CULTURE SCREEN 2023-08-19 [facility] [place] [facility] 21:46:00 [facility] BLOOD CULTURE SCREEN 2023-08-19 [facility] [place] [facility] 21:30:00 [facility] COMP. METABOLIC PANEL (20595) 2023-08[facility] 20:50[facility]00 [facility] CBC WITH DIFF 2023-08-19 [facility] 20:50:00 [facility] ASSIGNMENT OF BENEFITS 2023-08-19 Doctor Unassigned, [facility] 20:14:54 [place] [facility] US LOWER EXTREMITY VEIN WITH 2023-08-19 AubreanaerStaice hackett U [facility] COMPRESSION LEFT (ONLY FOR 20:06:20 Nancy Javier al Kavin RULE OUT DVT) CONSENT/REFUSAL FOR DIAGNOSIS 2023-08-19 Doctor Unassigned, [facility] AND TREATMENT 18:33:06 [place] [facility] HB CREATININE SERUM/BLOOD FOR 2023-08-14 Liliane Galicia [facility] IMAGING 17:49:00 Medical Branch ASSIGNMENT OF BENEFITS 2023-08-14 Doctor Unassigned, [facility] 17:20:00 [place] [facility] PHACOEMULSIFICATION OF 2021-11-04 Josiane [facility] CATARACT WITH INTRAOCULAR 15:35:00 Bhanu [place] LENS IMPLANT COVID-19 (ID NOW RAPID 2021-11-02 Josiane [facility] TESTING) 14:19:00 Bhanu Medical Branch LAB ONLY COVID INTERPRETATION 2021-11-02 Christal Joshua [facility] 14:19:00 Bhanu Medical Branch ASSIGNMENT OF BENEFITS 2021-10-29 Doctor Unassigned, [facility] 16:45:12 [place] [facility] COLONOSCOPY [facility]-18 [facility] 13:44:00 C Medical Branch COLONOSCOPY (ENDO) 2021-08-18 [facility]otaQuirino [facility] 13:37:11 Medical Branch COLONOSCOPY (ENDO) 2021-08-18 Quirino [facility] 13:37:11 Medical Branch COVID-19 (ID NOW RAPID 2021-08-16 Aman Ardon [facility] TESTING) 15:46:00 C Medical Branch ASSIGNMENT OF BENEFITS 2021-08-16 Doctor Unassigned, [facility] 15:36:54 [place] [facility] EXTERNAL PROVIDER RECORDS 2021-07-21 Doctor Unassigned, [facility] 05:01:00 [place] [facility] EXTERNAL PROVIDER RECORDS 2021-07-21 Doctor Unassigned, [facility] 05:01:00 [place] [facility] Encounters Start End Encounter Admission Attending Care Care Encounter Source Date/Time Date/Time Type Type Clinicians Facility Department ID 2023-08-19 2023-08-19 Emergency X AUFDERIDE [facility] ERT [id number] Univers 13:44:00 19:23:00 , STACIE ity of [facility] 2023-08-19 2023-08-19 [facility] [id number] Univers 13:44:00 19:23:00 , Stacie TERRELL [id number] i ty of [place] [id number] [place] [id number] [facility] 084 Branch 2023-08-14 2023-08-[address] [facility] [id number] Univers 12:21:57 23:59:00 ity of [facility] 2023-08-14 2023-08-14 [facility] [id number] Univers 12:21:57 23:59:00 Encounter Sharmin TEJADA [id number] ity of [place] [id number] [place] [id number] [facility] 801 Branch 2023-08-14 2023-08-14 Orders Doctor PRAVEEN [id number] Univers 00:00:00 00:00:00 Only Unassigned, ADRIENNE [id number] ity of [place] [facility] [id number] Abraham as [id number] [facility] 009 Branch 2021-11-04 2021-11-04 Surgery [facility] [id number] Univers 10:24:00 11:00:00 Christal TEJADA [id number] i ty of Bhanu [place] [id number] [place] SUR[place]ICAL [id number] [facility] 020 Branch 2021-11-04 2021-11-04 Hospital [facility] [id number] Univers 08:47:00 10:45:00 Encounter Christal TEJADA [id number] ity of Bhanu [place] [id number] [place] [id number] [facility] ical [place] 071 Branch 2021-11-04 2021-11-04 Outpatient R JOSIANE [facility] OPH [id number] Univers 08:47:00 10:45:00 CHRISTAL pizarro [facility] 2021-11-02 2021-11-02 Laboratory Only, [facility] Test [facility] 1.2.840. 114 [id number] Univers 08:00:00 08:15:00 Only Christal Joshua 350.1.1 3.10 ity [facility] [id number] [facility] [id number] [address] 2021-11-02 2021-11-02 Outpatient Kenya JOSHUA [facility] [id number] Univers 08:00:00 08:00:00 CHRISTAL pizarro [facility] 2021-10-29 2021-10-29 Tin Pot Operator Tabby, [facility] Lab Main [facility] 1.2.8 40.114 [id number] Univers 10:50:56 11:05:56 Visit Christal Joshua 350.1.1 3.10 ity [facility] [id number] [facility] [id number] Nh dical [address] 2021-10-29 2021-10-29 Outpatient Kenya JOSHUA [facility] [id number] Univers 11:00:00 11:00:00 CHRISTAL pizarro [facility] 2021-10-29 2021-10-29 Orders Doctor MORTON 1.2.840.114 [id number] Univers 00:00:00 00:00:00 Only Unassigned, ADRIENNE [id number] [facility] [place] [facility] [id number] [facility] [id number] [address] 2021-10-28 2021-10-28 Outpatient Kenya JOSHUA [facility] [id number] Univers 15:45:00 15:45:00 CHRISTAL pizarro [facility] 2021-08-18 2021-08-18 [facility] 1.2.840.114 [id number] Univers 07:25:00 10:08:00 Aman Charlton 350.1.13.10 ity [facility] [id number] [place] Surgical [id number] [facility] 071 Branch 2021-08-18 2021-08-18 [id number] Univers 07:25:00 10:08:00 AMAN Espinoza milindmichelle o robbin [facility] 2021-08-18 2021-08-18 [facility] 1.2.840.114 [id number] Univers 09:24:00 10:01:00 ulices Aman Tejada [id number] ity of [place] [id number] [place] Surgical [id number] [facility] 020 Branch 2021-08-16 2021-08-16 [id number] Univers 11:30:00 11:30:00 MANDO EspinozaKenya pizarro o robbin [facility] 2021-08-16 2021-08-16 Laboratory Only, Adc Test [facility] 1.2.840. 114 [id number] Univers 10:43:57 10:58:57 Only Aman Ardon 350.1.1 3.10 ity of [place] 4.2.7.2.686 [place] [id number] [facility] 353 Branch 2021-08-16 2021-08-16 Orders Doctor PRAVEEN 1.2.840.114 [id number] Univers 00:00:00 00:00:00 Only Unassigned, ADRIENNE [id number] ity of [place] [facility] [id number] Abraham as [id number] [address] Results Test Description Test Time Test Comments Results Result Comments Source POCT CREATININE 2023-08-14 18:10:14 Test Item Value Reference Range Interpretation Comme nts POCT Creatinine (test code = 4473601107) 1.1 mg/dL 0.6-1.3 Lab Interpretation (test code = 03425-2) Normal [facility]
[2023-10-08 20:16] LABS: Absolute Lymphocytes (CBC) 1.4 K/uL (0.7-4.9); Lymphocytes % 19.2 % (15.3-44.8); MCV 91.5 fL (80-100); MPV 8.5 fL (7.6-11.3); Platelets 238 thou/uL (152-406)
--- NOTE | 2023-10-08 20:25 | RAD REPORT ---
EXAM DESCRIPTION: RAD - Chest Single View - 10/08/2023 8:03 pm CLINICAL HISTORY: CHEST PAIN Chest pain. COMPARISON: Chest Single View dated 08/07/2023; Chest Single View dated 04/09/2023; Chest Single View dated 04/08/2023; Chest Single View dated 02/13/2023 FINDINGS: Portable technique limits examination quality. Mild interstitial pulmonary edema suspected. The heart is upper limit of normal in size. No displaced fractures.
[2023-10-08 20:29] LABS: Potassium 3.4 mEq/L (3.5-5.1); Troponin High Sensitivity 12.5 pg/mL (<58.9)
--- NOTE | 2023-10-08 20:44 | EDPHYS ---
Physician Documentation [facility] Name: Grupo Mcdonald Jr Age: 63 yrs Sex: Male : 1960 Arrival Date: 10/08/2023 Time: 19:00 Bed 17 Private MD: ED Physician Addy Resendiz HPI: 10/08 19:39 This 63 yrs old Male presents to ER via Ambulatory with complaints of Chest ec2 Pain. 19:39 Patient arrives today for evaluation of palpitations. Patient reports that he ec2 occasionally experiences palpitations, states that he had an episode shortly prior to arrival which is what prompted evaluation today. Patient reports no difficulty breathing, reports a history of hypertension as well as dysrhythmias in the past. States that he is post to have an outpatient Holter monitor however he has not had this. Also scheduled for stress test in 1 week.. Historical: - Allergies: 19:27 Codeine; ap3 19:27 Vicodin; ap3 - PMHx: 19:27 asbestosis; Cellulitis; Gout; Hypertension; lymphedema; Pre Diabetes; Psoriatic ap3 Arthritis; stroke; - PSHx: 19:27 Appendectomy; ap3 - Immunization history:: Client reports having NOT received the Covid vaccine. Flu vaccine is not up to date. - Social history:: Smoking status: Patient denies any tobacco usage or history of. ROS: 19:39 Constitutional: as per hpi ec2 Exam: 19:39 Constitutional: GEN: NAD Head: atraumatic Eyes: EOMI Ears: External ears are ec2 normal. CV: regular rate LUNGS: no respiratory distress ABD: non-distended SKIN: no evidence of rashes MSK: no evidence of trauma NEURO: moves all extremities equally Vital Signs: 19:25 BP 151 / 92; Pulse 79; Resp 18; Temp 98.4; Pulse Ox 98% on R/A; Weight 183.7 kg; Pain ap3 5/10; 19:47 BP 129 / 72; Pulse 80; Resp 23 S; Pulse Ox 96% on R/A; jw7 20:30 BP 145 / 67; Pulse 76; Resp 18 S; Pulse Ox 98% on R/A; jw7 19:25 Pain Scale: Adult ap3 MDM: 19:28 Patient medically screened. ec2 19:32 ED course: EKG independently reviewed and interpreted by me, shows normal sinus rhythm, ec2 rate of 79, no acute ST segment elevations, right bundle branch block noted, first-degree AV block noted.. 19:39 ED course: Patient arrives today for evaluation of chest palpitations. Examination ec2 remarkable for well-appearing nontoxic individual with reassuring vital signs. Will obtain lab work, EKG already obtained, chest x-ray and further assess the patient complaint. Currently considering process such as ACS, arrhythmia, electrolyte disturbances.. 20:39 Data reviewed: vital signs. ED course: Patient's lab work is remarkable for hypokalemia ec2 with a potassium of 3.4 which I will supplement. CBC is reassuring. Troponin is within normal ranges. Chest x-ray independently reviewed and interpreted by me, shows cardiomegaly. On reassessment patient is well-appearing in no acute distress. Will discharge home, instructed on potassium supplementation. . 10/08 19:32 Order name: Basic Metabolic Panel; Complete Time: 20:39 ec2 10/08 19:32 Order name: CBC with Diff; Complete Time: 20:39 ec2 10/08 19:32 Order name: Troponin HS; Complete Time: 20:39 ec2 10/08 19:32 Order name: XRAY Chest (1 view); Complete Time: 20:39 ec2 10/08 19:32 Order name: EKG; Complete Time: 19:32 ec2 10/08 19:32 Order name: Cardiac monitoring; Complete Time: 19:33 ec2 10/08 19:32 Order name: EKG - Nurse/Tech; Complete Time: 19:33 ec2 10/08 19:32 Order name: IV Saline Lock; Complete Time: 19:46 ec2 10/08 19:32 Order name: Labs collected and sent; Complete Time: 19:46 ec2 10/08 19:32 Order name: O2 Per Protocol; Complete Time: 19:33 ec2 10/08 19:32 Order name: O2 Sat Monitoring; Complete Time: 19:33 ec2 Administered Medications: 20:45 Drug: Potassium Chloride PO 40 mEq PO once Route: PO; jw7 20:56 Follow up: Response: No adverse reaction jw7 Disposition Summary: 10/08/23 20:43 Discharge Ordered Notes: Location: Home ec2 Condition: Stable ec2 Diagnosis - Palpitations ec2 - Hypokalemia ec2 Followup: ec2 - With: Private Physician - When: - Reason: Recheck today's complaints Discharge Instructions: - Discharge Summary Sheet ec2 - Potassium Content of Foods ec2 - Palpitations ec2 Forms: - Medication Reconciliation Form ec2 - Thank You Letter ec2 - Antibiotic Education ec2 - Prescription Opioid Use ec2 - Patient Portal Instructions ec2 - Leadership Thank You Letter ec2 Signatures: Dispatcher [employer] Amanda Bahena RN RN ap3 Maryanne Jackson RN RN jw7 Addy Resendiz MD MD ec2
--- NOTE | 2023-10-08 20:44 | ER ---
Nurse's Notes [facility] Name: Grupo Mcdonald Jr Age: 63 yrs Sex: Male : 1960 Arrival Date: 10/08/2023 Time: 19:00 Bed 17 Private MD: Diagnosis: Palpitations;Hypokalemia Presentation: 10/08 19:25 Chief complaint: Patient states: he started having left sided chest pain approx 30 mins ap3 [employer]. patient rates the pain to be a 5/10 on the pain scale at this time. Coronavirus screen: At this time, the client does not indicate any symptoms associated with coronavirus-19. Ebola Screen: No symptoms or risks identified at this time. Initial Sepsis Screen: Does the patient meet any 2 criteria? No. Patient's initial sepsis screen is negative. Does the patient have a suspected source of infection? No. Patient's initial sepsis screen is negative. Risk Assessment: Do you want to hurt yourself or someone else? Patient reports no desire to harm self or others. Onset of symptoms was October 08, 2023 at 18:45. 19:25 Method Of Arrival: Ambulatory ap3 19:25 Acuity: MARTY 2 ap3 Triage Assessment: 19:27 General: Appears in no apparent distress. Behavior is calm, cooperative, appropriate ap3 for age. Pain: Complains of pain in anterior aspect of left upper chest and left breast Pain currently is 5 out of 10 on a pain scale. Neuro: Level of Consciousness is awake, alert, obeys commands, Oriented to person, place, time, situation, Appropriate for age. Cardiovascular: Reports chest pain. Respiratory: Airway is patent Respiratory effort is even, unlabored, Respiratory pattern is regular, symmetrical. Historical: - Allergies: 19:27 Codeine; ap3 19:27 Vicodin; ap3 - PMHx: 19:27 asbestosis; Cellulitis; Gout; Hypertension; lymphedema; Pre Diabetes; Psoriatic ap3 Arthritis; stroke; - PSHx: 19:27 Appendectomy; ap3 - Immunization history:: Client reports having NOT received the Covid vaccine. Flu vaccine is not up to date. - Social history:: Smoking status: Patient denies any tobacco usage or history of. Screenin:28 Abuse screen: Denies threats or abuse. Nutritional screening: No deficits noted. ap3 Tuberculosis screening: No symptoms or risk factors identified. 19:33 [facility] ED Fall Risk Assessment (Adult) History of falling in the last 3 months, jw7 including since admission No falls in past 3 months (0 pts) Score/Fall Risk Level 0 - 2 = Low Risk Oriented to surroundings, Maintained a safe environment. Assessment: 19:28 Pain: Pain does not radiate. Pain began gradually, 30 min ago. ap3 20:30 Reassessment: Patient appears in no apparent distress at this time. Patient and/or jw7 family updated on plan of care and expected duration. Pain level reassessed. Patient is alert, oriented x 3, equal unlabored respirations, skin warm/dry/pink. Patient states feeling better. Vital Signs: 19:25 BP 151 / 92; Pulse 79; Resp 18; Temp 98.4; Pulse Ox 98% on R/A; Weight 183.7 kg; Pain ap3 5/10; 19:47 BP 129 / 72; Pulse 80; Resp 23 S; Pulse Ox 96% on R/A; jw7 20:30 BP 145 / 67; Pulse 76; Resp 18 S; Pulse Ox 98% on R/A; jw7 19:25 Pain Scale: Adult ap3 ED Course: 19:03 Patient arrived in ED. jj6 19:18 Maryanne Jackson, RN is Primary Nurse. jw7 19:27 Triage completed. ap3 19:28 Addy Resendiz MD is Attending Physician. ec2 19:28 Arm band placed on right wrist. ap3 19:28 Patient has correct armband on for positive identification. Bed in low position. Call ap3 light in reach. hospital monitor on. Pulse ox on. NIBP on. 19:28 Patient maintains SpO2 saturation greater than 95% on room air. ap3 19:33 EKG done, by ED staff, reviewed by Addy Resendiz MD. jw7 19:46 Initial lab(s) drawn, by ED staff, sent to lab. Inserted saline lock: 20 gauge in right jw7 antecubital area, using aseptic technique. Blood collected. 19:46 Basic Metabolic Panel Sent. jw7 19:46 CBC with Diff Sent. jw7 19:46 Troponin HS Sent. jw7 20:05 XRAY Chest (1 view) In Process Unspecified. EDMS 20:57 No provider procedures requiring assistance completed. IV discontinued, intact, jw7 bleeding controlled, No redness/swelling at site. Pressure dressing applied. 20:58 Provided Education on: discharge instructions. jw7 Administered Medications: 20:45 Drug: Potassium Chloride PO 40 mEq PO once Route: PO; jw7 20:56 Follow up: Response: No adverse reaction jw7 Medication: 20:58 VIS not applicable for this client. jw7 Outcome: 20:43 Discharge ordered by . ec2 20:57 Discharged to home ambulatory, jw7 20:57 Condition: stable 20:57 Discharge instructions given to patient, Instructed on discharge instructions, follow up and referral plans. Demonstrated understanding of instructions, follow-up care, 20:58 Patient left the ED. jw7 Signatures: Dispatcher [employer] Amanda Bahena RN RN ap3 Kristel Mason Jodi, RN RN jw7 Addy Resendiz MD MD ec2
[2023-10-08] MEDS ORDERED: POTASSIUM CL SA 10 MEQ TAB PO ONE (20:59)
[2023-10-08 21:29] VITALS: TEMP 98.4
[2023-10-08 21:32] VITALS: BP 145/67; O2SAT 98
--- NOTE | 2023-10-11 16:59 | EKG ---
Test Date: 2023-10-08 Test Time: 19:28:32 Oil Winterizer: [facility] MEASUREMENT RESULTS: Intervals: Rate: 79 MA: 316 QRSD: 164 QT: 420 QTc: 481 Wright: P: 55 MA: 316 QRS: -63 T: 34 INTERPRETIVE STATEMENTS: Sinus rhythm with 1st degree AV block Right bundle branch block Left anterior fascicular block Bifascicular block Abnormal ECG Compared to ECG 08/07/2023 21:04:59 Left anterior fascicular block now present Bifascicular block now present Electronically Signed On 10-11-23 16:53:22 [facility] by Omer Yan
== END 2023-10-08 20:58 | disposition home or self-care (01) ==
LOC: ER 19:00
DX: R00.2 Palpitations (principal); E87.6 Hypokalemia; I10 Essential (primary) hypertension; Z86.73 Personal history of transient ischemic attack (TIA), and cerebral infarction without residual deficits
CPT/HCPCS: 36415; 71045; 80048; 84484; 85025; 93005; 99285

== ENCOUNTER → 2023-11-11 | Emergency (ER) | payer OTHER ==
--- OUTSIDE RECORDS SUMMARY | 2023-11-11 18:38 | XMS REPORT | Continuity of Care Document ---
Author Name Unknown Address [address] [facility] [address] [place] [address] [facility] thconnect Address [address] [facility] [address] [place] [address] Care Team Providers Care Sound Assistant Name Role Phone RADHA QUIRINO Moraes Primary Care Physician STACIE Lee Attending Clinician Stacie Young MD Attending Clinician + LILIANE GALICIA Attending Clinician Unavailable Liliane Galicia MD Attending Clinician [phone] Doctor Unassigned, [place] Attending Clinician U Christal Brar MD Attending Clinician +- [phone] CHRISTAL JOSHUA Attending Clinician Lisa cruz Only, Adc Test Attending Clinician Unavailable Pob, [facility] Main Attending Clinician Aman Dobbins MD Attending Clinician +- [phone] AMAN ARDON Attending Clinician STACIE Esposito Admitting Clinician LILIANE Morrell Admitting Clinician Christal Kelly MD Admitting Clinician +- [phone] CHRISTAL JOSHUA Admitting Clinician Aman Lucas MD Admitting Clinician +- [phone] AMAN ARDON Admitting Clinician Lisa cruz Payers Payer Name Policy Type Policy Number Effective Date Expirati on Date Source [employer] MED[employer]ANTAGE [id number] 2021 00:00:00 Allergies, Adverse Reactions, Alerts Allergy Name Allergy Type Status Severity Reaction(s) Onset Date Inactive Date Treating Clinician Comments Source Hydrocod one-Acet aminophe n Propensi ty to adverse reaction s Active Unknown - See comments 08-16 00:00: 00 [place] HYDROCOD ONE-ACET AMINOPHE N DRUG Active Unknown-Cmnt 08-16 00:00: 00 [facility] Codeine Propensi ty to adverse reaction s to drug Active Nausea and/or Vomiting 2014-11 00:00: 00 [facility] CODEINE DRUG INGREDI Active Med N/V 2014-11 00:00: 00 [facility] Social History Social Habit Start Date Stop Date Quantity Comments Source Exposure to SARS-CoV-2 (event) Not [facility] 2023-08-19 00:00:00 2023-08-19 00:00:00 Current non-drinker of alcohol (finding) [facility] History of Social function 2021-11-04 00:00:00 2021-11-04 00:00:00 [facility] Tobacco use and exposure 2015-09-08 00:00:00 2015-09-08 00:00:00 Smokeless tobacco non-user [facility] Sex Assigned At 1960 00:00:00 1960 00:00:00 [facility] Smoking Status Start Date Stop Date Source Never smoked tobacco [facility] Medications Ordered Medication Name Filled Medication Name Start Date Stop Date Current Medication? Ordering Clinician Indication Dosage Frequency Signature (SIG) Comments Components Source vancomycin (VANCOCIN) 1,500 mg in NaCl 0.9% (NS) 500 mL VIAL-MATE IV piggyback 08-19 21:45: 00 08-19 23:28 :00 No 15mg/kg 1,500 mg (rounded from 2,779.5 mg = 15 mg/kg ?185.3 kg), IV Piggyback, ONCE, 1 dose, On 08/19/23 at 1645, Administer over 90 Minutes, 500 mL
Reas on for Anti-Infec tive: Documented Infection< br>Documen abhay Infection Site: Skin / Soft Tissue
Duration of Therapy: Other (see Comments) [facility] clindamycin 150 mg capsule 08-19 00:00: 00 08-30 04:59 :00 Yes [id number] 450mg Take 3 capsules by mouth 4 (four) times daily for 10 days. [facility] iopamidol (ISOVUE 370-500 mL) injection 100 mL 08-14 19:00: 00 08-14 18:10 :00 No [id number] 100mL 100 mL, Intravenou s, ONCE, 1 dose, On 08/14/23 at 1400, Routine [facility] water for irrigation irrigation solution 2020-11 15:49: 00 Yes PRN, Starting on Mon11/04/21 at 0949, Until Discontinu ed, Routine, Intra-op [facility] neomycin-po lymyxin-dex amethasone (MAXITROL) 3.5 mg/g-10,000 unit/g-0.1 % ophthalmic ointment 2020-11 15:49: 00 Yes PRN, Starting on Mariajose 11/04/21 at 0949, Until Discontinu ed, Routine, Intra-op [facility] gentamicin injection 2020-11 15:49: 00 Yes PRN, Starting on Mon11/04/21 at 0949, Until Discontinu ed, AGUILA, Intra-op [facility] water for irrigation irrigation solution 2020-11 15:49: 00 11-04 19:36 :50 No PRN, Starting on Mariajose 11/04/21 at 0949, Until Mariajose 11/04/21 at 1336, Routine, Intra-op [facility] neomycin-po lymyxin-dex amethasone (MAXITROL) 3.5 mg/g-10,000 unit/g-0.1 % ophthalmic ointment 2020-11 15:49: 00 11-04 19:36 :50 No PRN, Starting on Mariajose 11/04/21 at 0949, Until Mariajose 11/04/21 at 1336, Routine, Intra-op [facility] gentamicin injection 2020-11 15:49: 00 11-04 19:36 :50 No PRN, Starting on Mariajose 11/04/21 at 0949, Until Mariajose 11/04/21 at 1336, AGUILA, Intra-op [facility] DUOVISC (DUOVISC VISCO ELASTIC) 3 %-4 %(0.5 mL) 1 % (0.55 mL) intraocular injection 2020-11 15:48: 00 Yes PRN, Starting on Mariajose 11/04/21 at 0948, Until Discontinu ed, Routine, Intra-op [facility] dexamethaso ne (DECADRON PHOSPHATE) injection 2020-11 15:48: 00 Yes PRN, Starting on Mariajose 11/04/21 at 0948, Until Discontinu ed, Routine, Intra-op [facility] NaCl 0.9% (NS) injection 2020-11 15:48: 00 Yes PRN, Starting on Mariajose 11/04/21 at 0948, Until Discontinu ed, Routine, Intra-op [facility] DUOVISC (DUOVISC VISCO ELASTIC) 3 %-4 %(0.5 mL) 1 % (0.55 mL) intraocular injection 2020-11 15:48: 00 11-04 19:36 :50 No PRN, Starting on Mariajose 11/04/21 at 0948, Until Mairajose 11/04/21 at 1336, Routine, Intra-op [facility] dexamethaso ne (DECADRON PHOSPHATE) injection 2020-11 15:48: 00 11-04 19:36 :50 No PRN, Starting on Mariajose 11/04/21 at 0948, Until Mariajose 11/04/21 at 1336, Routine, Intra-op [facility] NaCl 0.9% (NS) injection 2020-11 15:48: 00 11-04 19:36 :50 No PRN, Starting on Mariajose 11/04/21 at 0948, Until Mariajose 11/04/21 at 1336, Routine, Intra-op [facility] ceFAZolin (ANCEF) injection 2020-11 15:47: 00 Yes PRN, Starting on Mariajose 11/04/21 at 0947, Until Discontinu ed, AGUILA, Intra-op [facility] tetracaine (PONTOCAINE ) 0.5 % ophthalmic drops 2020-11 15:47: 00 Yes PRN, Starting on Mariajose 11/04/21 at 0947, Until Discontinu ed, Routine, Intra-op [facility] ceFAZolin (ANCEF) injection 2020-11 15:47: 00 11-04 19:36 :50 No PRN, Starting on Mariajose 11/04/21 at 0947, Until Mariajose 11/04/21 at 1336, AGUILA, Intra-op [facility] tetracaine (PONTOCAINE ) 0.5 % ophthalmic drops 2020-11 15:47: 00 11-04 19:36 :50 No PRN, Starting on Mariajose 11/04/21 at 0947, Until Mariajose 11/04/21 at 1336, Routine, Intra-op [facility] eye block syringe 11 mL 2020-11 15:46: 00 Yes PRN, Starting on Mariajose 11/04/21 at 0946, Until Discontinu ed, Intra-op [facility] eye block syringe 11 mL 2020-11 15:46: 00 11-04 19:36 :50 No PRN, Starting on Mariajose 11/04/21 at 0946, Until Mariajose 11/04/21 at 1336, Intra-op [facility] EPINEPHrine (PF) 1:1,000 (1 mg/mL) (ADRENALIN (PF)) injection 2020-11 15:45: 00 Yes PRN, Starting on Mariajose 11/04/21 at 0945, Until Discontinu ed, Routine, Intra-op [facility] EPINEPHrine (PF) 1:1,000 (1 mg/mL) (ADRENALIN (PF)) injection 2020-11 15:45: 00 11-04 19:36 :50 No PRN, Starting on Mariajose 11/04/21 at 0945, Until Mariajose 11/04/21 at 1336, Routine, Intra-op [facility] balanced salt soln no.2 irrig. (BSS) ophthalmic solution 2020-11 15:44: 00 Yes PRN, Starting on Mariajose 11/04/21 at 0944, Until Discontinu ed, Routine, Intra-op [facility] balanced salt soln no.2 irrig. (BSS) ophthalmic solution 2020-11 15:44: 00 11-04 19:36 :50 No PRN, Starting on Mariajose 11/04/21 at 0944, Until Mariajose 11/04/21 at 1336, Routine, Intra-op [facility] cyclopent 1%-tropic 1%-phenyl 2.5%-ketor 0.5% (MYDRIATIC #5) ophthalmic solution syringe 0.5 mL 2020-11 15:00: 00 11-04 15:01 :00 No .5mL 0.5 mL, Right Eye, ONCE, 1 dose, On Mariajose 11/04/21 at 0900, Routine, DSU Pre-op [facility] lactated ringers IV infusion 1,000 mL 2020-11 15:00: 00 11-04 15:01 :00 No 1000mL at 42 mL/hr, 1,000 mL, IV Infusion, ONCE, 1 dose, On Mariajose 11/04/21 at 0900, Routine, DSU Pre-op [facility] cyclopent 1%-tropic 1%-phenyl 2.5%-ketor 0.5% (MYDRIATIC #5) ophthalmic solution syringe 0.5 mL 2020-11 15:00: 00 11-04 15:01 :00 No .5mL 0.5 mL, Right Eye, ONCE, 1 dose, On Mariajose 11/04/21 at 0900, Routine, DSU Pre-op [facility] lactated ringers IV infusion 1,000 mL 2020-11 15:00: 00 11-04 15:01 :00 No 1000mL at 42 mL/hr, 1,000 mL, IV Infusion, ONCE, 1 dose, On Mariajose 11/04/21 at 0900, Routine, DSU Pre-op [facility] aspirin 81 mg EC tablet 2020-11 11:31: 49 Yes 81mg Take 81 mg by mouth daily. [facility] lisinopril (PRINIVIL,Z ESTRIL) 20 mg tablet 2020-11 11:31: 49 Yes 20mg Take 20 mg by mouth 2 (two) times daily. [facility] verapamil (ISOPTIN) 120 mg tablet 2020-11 11:31: 49 Yes 120mg Take 120 mg by mouth 2 (two) times daily. [facility] ALBUTEROL INHALE 2020-11 11:31: 49 Yes Inhale. [facility] aspirin 81 mg EC tablet 2020-11 11:31: 49 Yes 81mg Take 81 mg by mouth daily. [facility] lisinopril (PRINIVIL,Z ESTRIL) 20 mg tablet 2020-11 11:31: 49 Yes 20mg Take 20 mg by mouth 2 (two) times daily. [facility] verapamil (ISOPTIN) 120 mg tablet 2020-11 11:31: 49 Yes 120mg Take 120 mg by mouth 2 (two) times daily. [facility] ALBUTEROL INHALE 2020-11 11:31: 49 Yes Inhale. [facility] aspirin 81 mg EC tablet 2020-11 11:31: 49 Yes 81mg Take 81 mg by mouth daily. [facility] lisinopril (PRINIVIL,Z ESTRIL) 20 mg tablet 2020-11 11:31: 49 Yes 20mg Take 20 mg by mouth 2 (two) times daily. [facility] verapamil (ISOPTIN) 120 mg tablet 2020-11 11:31: 49 Yes 120mg Take 120 mg by mouth 2 (two) times daily. [facility] ALBUTEROL INHALE 2020-11 11:31: 49 Yes Inhale. [facility] aspirin 81 mg EC tablet 2020-11 11:31: 49 Yes 81mg Take 81 mg by mouth daily. [facility] lisinopril (PRINIVIL,Z ESTRIL) 20 mg tablet 2020-11 11:31: 49 Yes 20mg Take 20 mg by mouth 2 (two) times daily. [facility] verapamil (ISOPTIN) 120 mg tablet 2020-11 11:31: 49 Yes 120mg Take 120 mg by mouth 2 (two) times daily. [facility] ALBUTEROL INHALE 2020-11 11:31: 49 Yes Inhale. [facility] aspirin 81 mg EC tablet 2020-11 11:31: 49 Yes 81mg Take 81 mg by mouth daily. [facility] lisinopril (PRINIVIL,Z ESTRIL) 20 mg tablet 2020-11 11:31: 49 Yes 20mg Take 20 mg by mouth 2 (two) times daily. [facility] verapamil (ISOPTIN) 120 mg tablet 2020-11 11:31: 49 Yes 120mg Take 120 mg by mouth 2 (two) times daily. [facility] ALBUTEROL INHALE 2020-11 11:31: 49 Yes Inhale. [facility] aspirin 81 mg EC tablet 2020-11 11:31: 49 Yes 81mg Take 81 mg by mouth daily. [facility] lisinopril (PRINIVIL,Z ESTRIL) 20 mg tablet 2020-11 11:31: 49 Yes 20mg Take 20 mg by mouth 2 (two) times daily. [facility] verapamil (ISOPTIN) 120 mg tablet 2020-11 11:31: 49 Yes 120mg Take 120 mg by mouth 2 (two) times daily. [facility] ALBUTEROL INHALE 2021-1 2-16 11:31: 49 Yes Inhale. [facility] simethicone (GAS RELIEF (SIMETHICON E)) 40 mg/0.6 mL drops 08-18 14:10: 00 Yes PRN, Starting on Mon08/18/21 at 0910, Until Discontinu ed, Routine, Intra-op [facility] simethicone (GAS RELIEF (SIMETHICON E)) 40 mg/0.6 mL drops 08-18 14:10: 00 08-18 17:12 :34 No PRN, Starting on Mon08/18/21 at 0910, Until Mon08/18/21 at 1212, Routine, Intra-op [facility] lactated ringers IV infusion 1,000 mL 08-18 13:15: 00 08-18 13:02 :00 No 1000mL at 42 mL/hr, 1,000 mL, IV Infusion, ONCE, 1 dose, On Mon08/18/21 at 0815, Routine, DSU Pre-op [facility] lactated ringers IV infusion 1,000 mL 08-18 13:15: 00 08-18 13:02 :00 No 1000mL at 42 mL/hr, 1,000 mL, IV Infusion, ONCE, 1 dose, On Mon08/18/21 at 0815, Routine, DSU Pre-op [facility] aspirin 81 mg EC tablet 08-18 10:12: 34 Yes 81mg Take 81 mg by mouth daily. [facility] lisinopril (PRINIVIL,Z ESTRIL) 20 mg tablet 08-18 10:12: 34 Yes 20mg Take 20 mg by mouth 2 (two) times daily. [facility] verapamil (ISOPTIN) 120 mg tablet 08-18 10:12: 34 Yes 120mg Take 120 mg by mouth 2 (two) times daily. [facility] aspirin 81 mg EC tablet 08-18 10:12: 34 Yes 81mg Take 81 mg by mouth daily. [facility] lisinopril (PRINIVIL,Z ESTRIL) 20 mg tablet 08-18 10:12: 34 Yes 20mg Take 20 mg by mouth 2 (two) times daily. [facility] verapamil (ISOPTIN) 120 mg tablet 08-18 10:12: 34 Yes 120mg Take 120 mg by mouth 2 (two) times daily. [facility] aspirin 81 mg EC tablet 08-18 10:12: 34 Yes 81mg Take 81 mg by mouth daily. [facility] lisinopril (PRINIVIL,Z ESTRIL) 20 mg tablet 08-18 10:12: 34 Yes 20mg Take 20 mg by mouth 2 (two) times daily. [facility] verapamil (ISOPTIN) 120 mg tablet 08-18 10:12: 34 Yes 120mg Take 120 mg by mouth 2 (two) times daily. [facility] aspirin 81 mg EC tablet 08-18 10:12: 34 Yes 81mg Take 81 mg by mouth daily. [facility] lisinopril (PRINIVIL,Z ESTRIL) 20 mg tablet 08-18 10:12: 34 Yes 20mg Take 20 mg by mouth 2 (two) times daily. [facility] verapamil (ISOPTIN) 120 mg tablet 08-18 10:12: 34 Yes 120mg Take 120 mg by mouth 2 (two) times daily. [facility] aspirin 81 mg EC tablet 2014-11 10:44: 23 Yes 81mg Take 81 mg by mouth daily. [facility] lisinopril (PRINIVIL,Z ESTRIL) 20 mg tablet 2014-11 10:44: 23 Yes 20mg Take 20 mg by mouth 2 (two) times daily. [facility] verapamil (ISOPTIN) 120 mg tablet 2014-11 10:44: 23 Yes 120mg Take 120 mg by mouth 2 (two) times daily. [facility] aspirin 81 mg EC tablet 2014-11 10:44: 23 Yes 81mg Take 81 mg by mouth daily. [facility] lisinopril (PRINIVIL,Z ESTRIL) 20 mg tablet 2014-11 10:44: 23 Yes 20mg Take 20 mg by mouth 2 (two) times daily. [facility] verapamil (ISOPTIN) 120 mg tablet 2014-11 10:44: 23 Yes 120mg Take 120 mg by mouth 2 (two) times daily. [facility] Vital Signs Vital Name Observation Time Observation Value Comments S jessica Systolic blood pressure 2023-08-20 00:00:00 141 mm[Hg] [facility] Diastolic blood pressure 2023-08-20 00:00:00 69 mm[Hg] [facility] Heart rate 2023-08-20 00:00:00 76 /min [facility] Respiratory rate 2023-08-20 00:00:00 16 /min [facility] Oxygen saturation in Arterial blood by Pulse oximetry 2023-08-20 00:00:00 99 /min [facility] Body temperature 2023-08-19 18:43:00 37.22 [place] [facility] Body height 2023-08-19 18:43:00 182.9 cm [facility] Body weight 2023-08-19 18:43:00 185.294 kg [facility] BMI 2023-08-19 18:43:00 55.40 kg/m2 [facility] Systolic blood pressure 2021-11-04 16:37:00 146 mm[Hg] [facility] Diastolic blood pressure 2021-11-04 16:37:00 69 mm[Hg] [facility] Oxygen saturation in Arterial blood by Pulse oximetry 2021-11-04 16:37:00 99 /min [facility] Heart rate 2021-11-04 16:30:00 71 /min [facility] Respiratory rate 2021-11-04 16:30:00 24 /min [facility] Body temperature 2021-11-04 16:11:00 36.89 [place] [facility] Body height 2021-10-26 14:41:00 182.9 cm [facility] Body weight 2021-10-26 14:41:00 204.1 kg [facility] BMI 2021-10-26 14:41:00 61.01 kg/m2 [facility] Systolic blood pressure 2021-11-04 16:37:00 146 mm[Hg] [facility] Diastolic blood pressure 2021-11-04 16:37:00 69 mm[Hg] [facility] Oxygen saturation in Arterial blood by Pulse oximetry 2021-11-04 16:37:00 99 /min [facility] Heart rate 2021-11-04 16:30:00 71 /min [facility] Respiratory rate 2021-11-04 16:30:00 24 /min [facility] Body temperature 2021-11-04 16:11:00 36.89 [place] [facility] Body height 2021-10-26 14:41:00 182.9 cm [facility] Body weight 2021-10-26 14:41:00 204.1 kg [facility] BMI 2021-10-26 14:41:00 61.01 kg/m2 [facility] Systolic blood pressure 2021-08-18 15:00:00 158 mm[Hg] [facility] Diastolic blood pressure 2021-08-18 15:00:00 90 mm[Hg] [facility] Heart rate 2021-08-18 15:00:00 75 /min [facility] Respiratory rate 2021-08-18 15:00:00 20 /min [facility] Oxygen saturation in Arterial blood by Pulse oximetry 2021-08-18 15:00:00 100 /min [facility] Body temperature 2021-08-18 14:35:00 37.33 [place] [facility] Body height 2021-08-16 14:15:00 182.9 cm [facility] Body weight 2021-08-16 14:15:00 204.119 kg [facility] BMI 2021-08-16 14:15:00 61.03 kg/m2 [facility] Systolic blood pressure 2021-08-18 15:00:00 158 mm[Hg] [facility] Diastolic blood pressure 2021-08-18 15:00:00 90 mm[Hg] [place] [facility] Heart rate 2021-08-18 15:00:00 75 /min [facility] Respiratory rate 2021-08-18 15:00:00 20 /min [facility] Oxygen saturation in Arterial blood by Pulse oximetry 2021-08-18 15:00:00 100 /min [place] [facility] Body temperature 2021-08-18 14:35:00 37.33 [place] [facility] Body height 2021-08-16 14:15:00 182.9 cm [facility] Body weight 2021-08-16 14:15:00 204.119 kg [facility] BMI 2021-08-16 14:15:00 61.03 kg/m2 [facility] Procedures Procedure Date / Time Performed Performing Clinician Source BLOOD CULTURE SCREEN 2023-08-19 21:46:00 Stacie Moss [facility] BLOOD CULTURE SCREEN 2023-08-19 21:30:00 Stacie Moss [facility] COMP. METABOLIC PANEL (84603) 2023-08-19 20:50:00 Stacie Moss [facility] CBC WITH DIFF 2023-08-19 20:50:00 Stacie Moss [facility] ASSIGNMENT OF BENEFITS 2023-08-19 20:14:54 Doctor Unassigned, [place] [facility] US LOWER EXTREMITY VEIN WITH COMPRESSION LEFT (ONLY FOR RULE OUT DVT) 2023-08-19 20:06:20 Stacie Moss [facility] CONSENT/REFUSAL FOR DIAGNOSI S AND TREATMENT 2023-08-19 18:33:06 Doctor Unassigned, [place] [facility] HB CREATININE SERUM/BLOOD FO R IMAGING 2023-08-14 17:49:00 Liliane Galicia [facility] ASSIGNMENT OF BENEFITS 2023-08-14 17:20:00 Doctor Unassigned, [place] [facility] PHACOEMULSIFICATION OF CATARACT WITH INTRAOCULAR LENS IMPLANT 2021-11-04 15:35:00 Christal Joshua [facility] COVID-19 (ID NOW RAPID TESTING) 2021-11-02 14:19:00 Christal Joshua [facility] LAB ONLY COVID INTERPRETATION 2021-11-02 14:19:00 Christal Joshua [facility] ASSIGNMENT OF BENEFITS 2021-10-29 16:45:12 Doctor Unassigned, [place] [facility] COLONOSCOPY 2021-08-18 13:44:00 Aman Ardon [facility] COLONOSCOPY (ENDO) 2021-08-18 13:37:11 Quirino Talbot [facility] COLONOSCOPY (ENDO) 2021-08-18 13:37:11 Quirino Talbot [facility] COVID-19 (ID NOW RAPID TESTING) 2021-08-16 15:46:00 Aman Ardon [facility] ASSIGNMENT OF BENEFITS 2021-08-16 15:36:54 Doctor Unassigned, [place] [facility] EXTERNAL PROVIDER RECORDS 2021-07-21 05:01:00 Doctor Unassigned, [place] [facility] EXTERNAL PROVIDER RECORDS 2021-07-21 05:01:00 Doctor Unassigned, [place] [facility] Encounters Start Date/Time End Date/Time Encounter Type Admission Type Attending [facility] Care Department Encounter ID Source 2023-08-19 13:44:00 2023-08-19 19:23:00 Emergency X STACIE MOSS [facility] ERT [id number] [facility] 2023-08-19 13:44:00 2023-08-19 19:23:00 Emergency Isa Stacie Nancy [facility] [id number] 350.1.13.10 [id number] [id number] [facility] 2023-08-14 12:21:57 2023-08-14 23:59:00 Outpatient R LILIANE GALICIA [facility] [id number] [facility] 2023-08-14 12:21:57 2023-08-14 23:59:00 Hospital Encounter Liliane Galicia [facility] [id number] 350.1.13.10 [id number] [id number] [facility] 2023-08-14 00:00:00 2023-08-14 00:00:00 Orders Only Doctor Unassigned, [place] [facility] [id number] 350.1.13.10 4.2.7.2.686 [id number] [facility] 2021-11-04 10:24:00 2021-11-04 11:00:00 Surgery Christal Joshua [facility] [place] 1.2.840.114 350.1.13.10 4.2.7.2.686 [id number] [facility] 2021-11-04 08:47:00 2021-11-04 10:45:00 Hospital Encounter Christal Joshua [facility] [place] [id number] 350.1.13.10 4.2.7.2.686 [id number] [facility] 2021-11-04 08:47:00 2021-11-04 10:45:00 Outpatient CHRISTAL WALLIS [facility] [id number] [facility] 2021-11-02 08:00:00 2021-11-02 08:15:00 Laboratory Only Only, Adc Test Christal Joshua [facility] [id number] 350.1.13.10 [id number] [id number] [facility] 2021-11-02 08:00:00 2021-11-02 08:00:00 Outpatient R CHRISTAL JOSHUA [facility] [id number] [facility] 2021-10-29 10:50:56 2021-10-29 11:05:56 Hris Manager Visit Pob, Adc Lab Main [facility]al [facility] 1..840.114 350.1.13.10 4.2.7.2.686 [id number] [facility] 2021-10-29 11:00:00 2021-10-29 11:00:00 Outpatient CHRISTAL WALLIS [facility] [id number] [facility] 2021-10-29 00:00:00 2021-10-29 00:00:00 Orders Only Doctor Unassigned, [place] [facility] 1..840.114 350.1.13.10 4.2.7.2.686 [id number] [facility] 2021-10-28 15:45:00 2021-10-28 15:45:00 Outpatient CHRISTAL WALLIS [facility] [id number] [facility] 2021-08-18 07:25:00 2021-08-18 10:08:00 Hospital Encounter Aman Rojas [facility] [id number] [id number] [facility] 2021-08-18 07:25:00 2021-08-18 10:08:00 Outpatient R AMAN ROJAS [facility] [id number] [facility] 2021-08-18 09:24:00 2021-08-18 10:01:00 Surgery Aman Rojas [facility] [id number] [facility] 2021-08-16 11:30:00 2021-08-16 11:30:00 Outpatient R AMAN ROJAS [facility] [id number] [facility] 2021-08-16 10:43:57 2021-08-16 10:58:57 Laboratory Only Only, Adc Test Aman Rojas [facility] [id number] [facility] 2021-08-16 00:00:00 2021-08-16 00:00:00 Orders Only Doctor Unassigned, [place] [facility] [id number] [facility] Results Test Description Test Time Test Comments Results Result Co mments Source [facility]
--- NOTE | 2023-11-11 19:14 | EDPHYS ---
Physician Documentation [facility] Name: Grupo Mcdonald Jr Age: 63 yrs Sex: Male : 1960 Arrival Date: 11/11/2023 Time: 18:34 Bed IW1 Private MD: ED Physician Jean Carlos Bledsoe HPI: 11/11 19:14 This 63 yrs old Male presents to ER via Wheelchair with complaints of High Blood sb4 Pressure, Headache. 19:14 The patient has elevated blood pressure and discovered this at home, with a home sb4 device. Onset: The symptoms/episode began/occurred just prior to arrival. Modifying factors: The symptoms are alleviated by prescription meds, calcium channel cezar. Associated signs and symptoms: Pertinent positives: headache, Pertinent negatives: chest pain, dizziness, lightheadedness, nausea, visual changes, vomiting. Severity of symptoms: At its worst the blood pressure was 170 mm Hg, in the emergency department the blood pressure is improved, markedly, 145 mm Hg. The patient has not experienced similar symptoms in the past. 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 Historical: - Allergies: 19:14 Codeine; pf1 19:14 Vicodin; pf1 - PMHx: 19:14 asbestosis; Cellulitis; Gout; Hypertension; lymphedema; Pre Diabetes; Psoriatic pf1 Arthritis; stroke; - PSHx: 19:14 Appendectomy; pf1 19:15 cataracts; pf1 - Immunization history:: Adult Immunizations not up to date, Client reports having NOT received the Covid vaccine. Last tetanus immunization: < 5 years ago Flu vaccine is not up to date. - Social history:: Smoking status: Patient denies any tobacco usage or history of. Patient uses alcohol, occasionally. Patient/guardian denies using street drugs. ROS: 19:14 Constitutional: Negative for fever, chills, and weight loss, sb4 19:14 All other systems are negative, Exam: 19:14 Constitutional: This is a well developed, well nourished patient who is awake, alert, sb4 and in no acute distress. Head/Face: Normocephalic, atraumatic. Eyes: Extra-ocular motions intact. Periorbital areas with no swelling, redness, or edema. ENT: Mucous membranes moist. Cardiovascular: Regular rate and rhythm with a normal S1 and S2. Respiratory: Lungs have equal breath sounds bilaterally, clear to auscultation and percussion. No rales, rhonchi or wheezes noted. No increased work of breathing, no retractions or nasal flaring. Abdomen/GI: Soft, non-tender, no distension. Skin: Warm, dry with normal turgor. Normal color with no rashes, no lesions, and no evidence of cellulitis. MS/ Extremity: Pulses equal, no cyanosis. Neurovascular intact. Full, normal range of motion. Neuro: Awake and alert, GCS 15, oriented to person, place, time, and situation. Motor strength 5/5 in all extremities. Sensory grossly intact. Vital Signs: 19:02 BP 145 / 74; Pulse 81; Resp 16; Temp 98.6; Pulse Ox 99% on R/A; Weight 185.07 kg; pf1 Height 6 ft. 0 in. ; Pain 0/10; 19:02 Body Mass Index 55.33 (185.07 kg, 182.88 cm) pf1 19:02 Pain Scale: Adult pf1 MDM: 19:13 Patient medically screened. sb4 19:14 Differential diagnosis: hypertensive crisis, primary hypertension. Data interpreted: sb4 Pulse oximetry: on room air is 99 %. Interpretation: normal. Data reviewed: vital signs, nurses notes, and as a result, I will discharge patient. Test considered but Not performed: Labs: labs, ekg, chest xray, head CT.. patient declined, states he feels better now that his blood pressure has improved. he is requesting to be discharged. strict return precautions given, he understands. has blood pressure monitoring device at home and follow up with cardiology scheduled. Care significantly affected by the following chronic conditions: Hypertension, Obesity. Counseling: I had a detailed discussion with the patient and/or guardian regarding the historical points, exam findings, and any diagnostic results supporting the discharge/admit diagnosis, the presence of at least one elevated blood pressure reading (>120/80) during this emergency department visit, to return to the emergency department if symptoms worsen or persist or if there are any questions or concerns that arise at home. Administered Medications: No medications were administered Disposition Summary: 11/11/23 19:13 Discharge Ordered Notes: Location: Home sb4 Problem: new sb4 Symptoms: are resolved sb4 Condition: Stable sb4 Diagnosis - Essential (primary) hypertension sb4 Followup: sb4 - With: Emergency Department - When: As needed - Reason: Trouble breathing, Worsening of condition Discharge Instructions: - Discharge Summary Sheet sb4 - Hypertension, Adult sb4 Forms: - Medication Reconciliation Form sb4 - Thank You Letter sb4 - Antibiotic Education sb4 - Prescription Opioid Use sb4 - Patient Portal Instructions sb4 - Leadership Thank You Letter sb4 Signatures: Erinn Hooper PA-C PA-C sb4 Kenya Farley RN RN pf1 Corrections: (The following items were deleted from the chart) 19:16 19:14 PSHx: cataracts (Appendectomy); pf1 pf1
--- NOTE | 2023-11-11 20:08 | ER ---
Nurse's Notes [facility] Name: Grupo Mcdonald Jr Age: 63 yrs Sex: Male : 1960 Arrival Date: 11/11/2023 Time: 18:34 Bed IW1 Private MD: Diagnosis: Essential (primary) hypertension Presentation: 11/11 19:02 Chief complaint: Patient states: elevated BP 176/100 with headache pain of 5 at 1600 pf1 and took Nifedipine 90 mg at 1600. Patient denies any chest pain and is currently feeling better at this time. Coronavirus screen: Vaccine status:. Coronavirus screen: Vaccine status: Patient reports being unvaccinated. Client denies travel out of the [place] in the last 14 days. At this time, the client does not indicate any symptoms associated with coronavirus-19. Ebola Screen: Patient negative for fever greater than or equal to 101.5 degrees Fahrenheit, and additional compatible Ebola Virus Disease symptoms. Initial Sepsis Screen: Does the patient meet any 2 criteria? No. Patient's initial sepsis screen is negative. Does the patient have a suspected source of infection? No. Patient's initial sepsis screen is negative. Risk Assessment: Do you want to hurt yourself or someone else? Patient reports no desire to harm self or others. 19:02 Method Of Arrival: Wheelchair pf1 19:02 Acuity: MARTY 3 pf1 Historical: - Allergies: 19:14 Codeine; pf1 19:14 Vicodin; pf1 - PMHx: 19:14 asbestosis; Cellulitis; Gout; Hypertension; lymphedema; Pre Diabetes; Psoriatic pf1 Arthritis; stroke; - PSHx: 19:14 Appendectomy; pf1 19:15 cataracts; pf1 - Immunization history:: Adult Immunizations not up to date, Client reports having NOT received the Covid vaccine. Last tetanus immunization: < 5 years ago Flu vaccine is not up to date. - Social history:: Smoking status: Patient denies any tobacco usage or history of. Patient uses alcohol, occasionally. Patient/guardian denies using street drugs. Screenin:18 [facility] ED Fall Risk Assessment (Adult) History of falling in the last 3 months, pf1 including since admission No falls in past 3 months (0 pts) Confusion or Disorientation No (0 pts) Intoxicated or Sedated No (0 pts) Impaired Gait No (0 pts) Mobility Assist Device Used No (0 pt) Altered Elimination No (0 pt) Score/Fall Risk Level 0 - 2 = Low Risk Oriented to surroundings, Maintained a safe environment, Educated pt \T\ family on fall prevention, incl call for assistance when getting out of bed, Assessed \T\ reinforced patient's understanding of fall precautions, Provided non-skid footwear, Hourly rounding (assess needs \T\ fall precautionary measures) done, Used ambulatory aids as needed (educated on \T\ assisted with), Used gait belt as appropriate. Abuse screen: Denies threats or abuse. Nutritional screening: No deficits noted. Tuberculosis screening: No symptoms or risk factors identified. Assessment: 19:18 General: Appears in no apparent distress. comfortable, obese, well groomed, well pf1 developed, Behavior is calm, cooperative, appropriate for age, quiet. 19:18 Pain: Denies pain. Neuro: No deficits noted. 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 Cardiovascular: No deficits noted. Reports elevated BP, improved in triage. Capillary refill < 3 seconds Patient's skin is warm and dry. Respiratory: No deficits noted. Airway is patent Respiratory effort is even, unlabored, Respiratory pattern is regular, symmetrical. GI: No deficits noted. No signs and/or symptoms were reported involving the gastrointestinal system. : No deficits noted. No signs and/or symptoms were reported regarding the genitourinary system. EENT: No deficits noted. No signs and/or symptoms were reported regarding the EENT system. Derm: No deficits noted. No signs and/or symptoms reported regarding the dermatologic system. Vital Signs: 19:02 BP 145 / 74; Pulse 81; Resp 16; Temp 98.6; Pulse Ox 99% on R/A; Weight 185.07 kg; pf1 Height 6 ft. 0 in. ; Pain 0/10; 19:02 Body Mass Index 55.33 (185.07 kg, 182.88 cm) pf1 19:02 Pain Scale: Adult pf1 ED Course: 18:37 Patient arrived in ED. im 19:07 Erinn Hooper PA-C is PHCP. sb4 19:07 Jean Carlos Bledsoe MD is Attending Physician. sb4 19:14 Triage completed. pf1 19:18 Patient has correct armband on for positive identification. pf1 19:18 Arm band placed on right wrist. pf1 19:30 Provided Education on: follow up. pf1 19:30 Patient did not have IV access during this emergency room visit. pf1 19:30 No provider procedures requiring assistance completed. pf1 Administered Medications: No medications were administered Medication: 19:30 VIS not applicable for this client. pf1 Outcome: 19:13 Discharge ordered by . sb4 19:30 Discharged to home via wheelchair, pf1 19:30 Condition: improved 19:30 Discharge instructions given to patient, Instructed on discharge instructions, follow up and referral plans. Demonstrated understanding of instructions, follow-up care, 20:07 Patient left the ED. pf1 Signatures: Erinn Hooper PA-C PAMarisC sb4 Kenya Farley RN RN pf1 Lashon Rosenberg Corrections: (The following items were deleted from the chart) 19:16 19:14 PSHx: cataracts (Appendectomy); pf1 pf1
[2023-11-11 22:01] VITALS: BP 145/74; TEMP 98.6; O2SAT 99
== END ==
LOC: ER 18:34
DX: I10 Essential (primary) hypertension (principal); Z88.5 Allergy status to narcotic agent
CPT/HCPCS: 99282

== ENCOUNTER → 2024-01-06 | Emergency (ER) | payer OTHER ==
[~2024-01-06] MED LIST: CLINDAMYCIN 600MG/D5W 50 ML IV ONE; KETOROLAC 30 MG/ML INJ ONE; ONDANSETRON 4 MG/2 ML VIAL ONE
--- OUTSIDE RECORDS SUMMARY | 2024-01-06 03:37 | XMS REPORT | Continuity of Care Document ---
Author Name Unknown Address [address] [facility] [address] [place] [address] [facility] Address [address] [facility] [address] [place] [address] Care Team Providers Care Cashier Greeter Name Role Phone QUIRINO TALBOT Primary Care Physician Unavailab BRENNA Farrar Attending Clinician Unavailable STACIE MOSS Attending Clinician Stacie Young MD Attending Clinician + LILIANE GALICIA Attending Clinician Unavailable Liliane Galicia MD Attending Clinician [phone] Doctor Unassigned, [place] Attending Clinician Christal Mccrary MD Attending Clinician +- [phone] CHRISTAL JOSHUA Attending Clinician Lisa cruz Only, Ad[facility] Test Attending Clinician Unavailable Pob, [facility] Main Attending Clinician UnavailAman Malhotra MD Attending Clinician + [phone] AMAN ARDON Attending Clinician BRENNA Odonnell Admitting Clinician Unavailable STACIE MOSS Admitting Clinician LILIANE Morrell Admitting Clinician Unavailable Christal Joshua MD Admitting Clinician + [phone] CHRISTAL JOSHUA Admitting Clinician Aman Lucas MD Admitting Clinician + [phone] AMAN ARDON Admitting Clinician Lisa cruz Payers Payer Name Policy Type Policy Number Effective Date Expirati on Date Source [employer]AGE [id number] 2021 00:00:00 Problems Condition Name Condition Details Condition Category Status Onset Date Resolution Date Last Treatment Date Treating Clinician Comments Source Acute bursitis Acute bursitis Disease Active 2022-11 00:00: 00 [facility] Body mass index (BMI) 60.0-69.9, adult Body mass index (BMI) 60.0-69.9, adult Disease Active 2022-11 00:00: 00 [facility] Abdominal pain of unknown etiology Abdominal pain of unknown etiology Disease Active 8-31 00:00: 00 [facility] Candidal intertrigo Candidal intertrigo Disease Active 04-05 00:00: 00 [facility] 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 Disease Active 17 00:00: 00 [facility] Diabetes mellitus Diabetes mellitus Disease Active 505 00:00: 00 [facility] Psoriatic arthritis Psoriatic arthritis Disease Active 2021-11 1-15 00:00: 00 [facility] Acute serous otitis media of right ear Acute serous otitis media of right ear Disease Active 4- 00:00: 00 [facility] Bronchitis Bronchitis Disease Active 2019-11 00:00: 00 [facility] Cellulitis of left lower limb Cellulitis of left lower limb Disease Active 2019-11 00:00: 00 [facility] Hyperchole sterolemia Hyperchole sterolemia Disease Active 2019-11 00:00: 00 [facility] Chronic low back pain Chronic low back pain Disease Active 04-17 00:00: 00 [facility] Gastroesop hageal reflux disease Gastroesop hageal reflux disease Disease Active 04-17 00:00: 00 [facility] Hypertensi on Hypertensi on Disease Active 04-17 00:00: 00 [facility] Dyslipidem ia Dyslipidem ia Disease Active 03-25 00:00: 00 [facility] History of cerebrovas cular accident History of cerebrovas cular accident Disease Active 03-25 00:00: 00 [facility] Varicose veins of unspecifie d lower extremity with ulcer other part of lower leg (CODE) Varicose veins of unspecifie d lower extremity with ulcer other part of lower leg (CODE) Disease Active 08-05 00:00: 00 [facility] Allergies, Adverse Reactions, Alerts Allergy Name Allergy Type Status Severity Reaction(s) Onset Date Inactive Date Treating Clinician Comments Source Hydrocod one-Acet aminophe n Propensi ty to adverse reaction s Active Unknown - See comments 08-16 00:00: 00 [facility] HYDROCOD ONE-ACET AMINOPHE N DRUG Active Unknown-Cmnt 08-16 00:00: 00 [facility] Codeine Propensi ty to adverse reaction s to drug Active Nausea and/or Vomiting 2014-11 00:00: 00 [facility] CODEINE DRUG INGREDI Active Med N/V 2014-11 00:00: 00 [facility] Social History Social Habit Start Date Stop Date Quantity Comments Source Exposure to SARS-CoV-2 (event) Not sure [facility] Alcohol intake 2023-11-16 00:00:00 2023-11-16 00:00:00 Current non-drinker of alcohol (finding) [facility] History of Social function 2021-11-04 00:00:00 2021-11-04 00:00:00 [facility] Tobacco use and exposure 2015-09-08 00:00:00 2015-09-08 00:00:00 Smokeless tobacco non-user [facility] Sex Assigned At 1960 00:00:00 1960 00:00:00 [facility] Smoking Status Start Date Stop Date Source Never smoked tobacco [facility] Medications Ordered Medication Name Filled Medication Name Start Date Stop Date Current Medication? Ordering Clinician Indication Dosage Frequency Signature (SIG) Comments Components Source indomethaci n (INDOCIN) capsule 50 mg 2022-11 00:00: 00 11-16 23:17 :00 No 50mg 50 mg, Oral, ONCE, 1 dose, On Mariajose 11/16/23 at 1800, Routine [facility] indomethaci n 50 mg capsule 2022-11 00:00: 00 Yes [id number] 50mg Take 1 capsule by mouth 3 (three) times daily as needed for Pain for up to 15 doses. [facility] vancomycin (VANCOCIN) 1,500 mg in NaCl 0.9% [...] Tissue
Duration of Therapy: Other (see Comments) [facility] clindamycin 150 mg capsule 08-19 00:00: 00 08-30 04:59 :00 No [id number] 450mg Take 3 capsules by mouth 4 (four) times daily for 10 days. [facility] iopamidol (ISOVUE 370-500 mL) injection 100 mL 08-14 19:00: 00 08-14 18:10 :00 No [id number] 100mL 100 mL, Intravenou s, ONCE, 1 dose, On 08/14/23 at 1400, Routine [facility] water for irrigation irrigation solution 2020-11 15:49: 00 Yes PRN, Starting on Mariajose 11/04/21 at 0949, Until Discontinu ed, Routine, Intra-op [facility] neomycin-po lymyxin-dex amethasone (MAXITROL) 3.5 mg/g-10,000 unit/g-0.1 % ophthalmic ointment 2020-11 15:49: 00 Yes PRN, Starting on Mariajose 11/04/21 at 0949, Until Discontinu ed, Routine, [facility] gentamicin injection 2020-11 15:49: 00 Yes PRN, Starting on Mariajose 11/04/21 at 0949, Until Discontinu ed, AGUILA, Intra-op [facility] water for irrigation irrigation solution 2020-11 15:49: 00 11-04 19:36 :50 No PRN, Starting on Mariajose 11/04/21 at 0949, Until Mariajose 11/04/21 at 1336, Routine, Intra-op [facility] neomycin-po lymyxin-dex amethasone (MAXITROL) 3.5 mg/g-10,000 unit/g-0.1 % ophthalmic ointment 2020-11 15:49: 00 11-04 19:36 :50 No PRN, Starting on Mariajose 11/04/21 at 0949, Until Mariajose 11/04/21 at 1336, Routine, Intra-op [facility] gentamicin injection 2020-11 15:49: 00 11-04 19:36 :50 No PRN, Starting on Mariajose 11/04/21 at 0949, Until Mariajose 11/04/21 at 1336, AGUILA, Intra-op [facility] DUOVISC (DUOVISC VISCO ELASTIC) 3 %-4 %(0.5 mL) 1 % (0.55 mL) intraocular injection 2020-11 15:48: 00 Yes PRN, Starting on Mariajose 11/04/21 at 0948, Until Discontinu ed, Routine, Intra-op [facility] dexamethaso ne (DECADRON PHOSPHATE) injection 2020-11 15:48: 00 Yes PRN, Starting on Mariajose 11/04/21 at 0948, Until Discontinu ed, Routine, Intra-op [facility] NaCl 0.9% (NS) injection 2020-11 15:48: 00 Yes PRN, Starting on Mariajose 11/04/21 at 0948, Until Discontinu ed, Routine, Intra-op [facility] DUOVISC (DUOVISC VISCO ELASTIC) 3 %-4 %(0.5 mL) 1 % (0.55 mL) intraocular injection 2020-11 15:48: 00 11-04 19:36 :50 No PRN, Starting on Mariajose 11/04/21 at 0948, Until Mariajose 11/04/21 at 1336, Routine, Intra-op [facility] dexamethaso ne (DECADRON PHOSPHATE) injection 2020-11 15:48: 00 11-04 19:36 :50 No PRN, Starting on Mariajose 11/04/21 at 0948, Until Mariajose 11/04/21 at 1336, Routine, Intra-op [facility] NaCl 0.9% (NS) injection 2020-11 15:48: 00 11-04 19:36 :50 No PRN, Starting on Mariajose 11/04/21 at 0948, Until Mariajose 11/04/21 at 1336, Routine, Intra-op [facility] ceFAZolin (ANCEF) injection 2020-11 15:47: 00 Yes PRN, Starting on Mariajose 11/04/21 at 0947, Until Discontinu ed, AGUILA, Intra-op [facility] tetracaine (PONTOCAINE ) 0.5 % ophthalmic drops 2020-11 15:47: 00 Yes PRN, Starting on Mariajose 11/04/21 at 0947, Until Discontinu ed, Routine, [facility]-op [facility] ceFAZolin (ANCEF) injection 2020-11 15:47: 00 11-04 19:36 :50 No PRN, Starting on Mariajose 11/04/21 at 0947, Until Mariajose 11/04/21 at 1336, AGUILA, Intra-op [facility] tetracaine (PONTOCAINE ) 0.5 % ophthalmic drops 2020-11 15:47: 00 11-04 19:36 :50 No PRN, Starting on Mariajose 11/04/21 at 0947, Until Mariajose 11/04/21 at 1336, Routine, Intra-op [facility] eye block syringe 11 mL 2020-11 15:46: 00 Yes PRN, Starting on Mariajose 11/04/21 at 0946, Until Discontinu ed, Intra-op [facility] eye block syringe 11 mL 2020-11 15:46: 00 11-04 19:36 :50 No PRN, Starting on Mariajose 11/04/21 at 0946, Until Mariajose 11/04/21 at 1336, Intra-op [facility] EPINEPHrine (PF) 1:1,000 (1 mg/mL) (ADRENALIN (PF)) injection 2020-11 15:45: 00 Yes PRN, Starting on Mariajose 11/04/21 at 0945, Until Discontinu ed, Routine, Intra-op [facility] EPINEPHrine (PF) 1:1,000 (1 mg/mL) (ADRENALIN (PF)) injection 2020-11 15:45: 00 11-04 19:36 :50 No PRN, Starting on Mariajose 11/04/21 at 0945, Until Mariajose 11/04/21 at 1336, Routine, Intra-op [facility] balanced salt soln no.2 irrig. (BSS) ophthalmic solution 2020-11 15:44: 00 Yes PRN, Starting on Mariajose 11/04/21 at 0944, Until Discontinu ed, Routine, Intra-op [facility] balanced salt soln no.2 irrig. (BSS) ophthalmic solution 2020-11 15:44: 00 11-04 19:36 :50 No PRN, Starting on Mariajose 11/04/21 at 0944, Until Mariajose 11/04/21 at 1336, Routine, Intra-op [facility] cyclopent 1%-tropic 1%-phenyl 2.5%-ketor 0.5% (MYDRIATIC #5) ophthalmic solution syringe 0.5 mL 2020-11 15:00: 00 11-04 15:01 :00 No .5mL 0.5 mL, Right Eye, ONCE, 1 dose, On Mariajose 11/04/21 at 0900, Routine, DSU Pre-op [facility] lactated ringers IV infusion 1,000 mL 2020-11 15:00: 00 11-04 15:01 :00 No 1000mL at 42 mL/hr, 1,000 mL, IV Infusion, ONCE, 1 dose, On Mariajose 11/04/21 at 0900, Routine, DSU Pre-op [facility] cyclopent 1%-tropic 1%-phenyl 2.5%-ketor 0.5% (MYDRIATIC #5) ophthalmic solution syringe 0.5 mL 2020-11 15:00: 00 11-04 15:01 :00 No .5mL 0.5 mL, Right Eye, ONCE, 1 dose, On Mariajose 11/04/21 at 0900, Routine, DSU Pre-op [facility] lactated ringers IV infusion 1,000 mL 2020-11 15:00: 00 11-04 15:01 :00 No 1000mL at 42 mL/hr, 1,000 mL, IV Infusion, ONCE, 1 dose, On Mariajose 11/04/21 at 0900, Routine, DSU Pre-op [facility] aspirin 81 mg EC tablet 2020-11 11:31: 49 Yes 81mg Take 81 mg by mouth daily. [facility] lisinopril (PRINIVIL,Z ESTRIL) 20 mg tablet 2020-11 11:31: 49 Yes 20mg Take 20 mg by mouth 2 (two) times daily. [facility] verapamil (ISOPTIN) 120 mg tablet 2020-11 11:31: 49 Yes 120mg Take 120 mg by mouth 2 (two) times daily. [facility] ALBUTEROL INHALE 2020-11 11:31: 49 Yes Inhale. [facility] aspirin 81 mg EC tablet 2020-11 11:31: 49 Yes 81mg Take 81 mg by mouth daily. [facility] lisinopril (PRINIVIL,Z ESTRIL) 20 mg tablet 2020-11 11:31: 49 Yes 20mg Take 20 mg by mouth 2 (two) times daily. [facility] verapamil (ISOPTIN) 120 mg tablet 2020-11 11:31: 49 Yes 120mg Take 120 mg by mouth 2 (two) times daily. [facility] ALBUTEROL INHALE 2020-11 11:31: 49 Yes Inhale. [facility] aspirin 81 mg EC tablet 2020-11 11:31: 49 Yes 81mg Take 81 mg by mouth daily. [facility] lisinopril (PRINIVIL,Z ESTRIL) 20 mg tablet 2020-11 11:31: 49 Yes 20mg Take 20 mg by mouth 2 (two) times daily. [facility] verapamil (ISOPTIN) 120 mg tablet 2020-11 11:31: 49 Yes 120mg Take 120 mg by mouth 2 (two) times daily. [facility] ALBUTEROL INHALE 2020-11 11:31: 49 Yes Inhale. [facility] aspirin 81 mg EC tablet 2020-11 11:31: 49 Yes 81mg Take 81 mg by mouth daily. [facility] lisinopril (PRINIVIL,Z ESTRIL) 20 mg tablet 2020-11 11:31: 49 Yes 20mg Take 20 mg by mouth 2 (two) times daily. [facility] verapamil (ISOPTIN) 120 mg tablet 2020-11 11:31: 49 Yes 120mg Take 120 mg by mouth 2 (two) times daily. [facility] ALBUTEROL INHALE 2020-11 11:31: 49 Yes Inhale. [facility] aspirin 81 mg EC tablet 2020-11 11:31: 49 Yes 81mg Take 81 mg by mouth daily. [facility] lisinopril (PRINIVIL,Z ESTRIL) 20 mg tablet 2020-11 11:31: 49 Yes 20mg Take 20 mg by mouth 2 (two) times daily. [facility] verapamil (ISOPTIN) 120 mg tablet 2020-11 11:31: 49 Yes 120mg Take 120 mg by mouth 2 (two) times daily. [facility] ALBUTEROL INHALE 2020-11 11:31: 49 Yes Inhale. [facility] aspirin 81 mg EC tablet 2020-11 11:31: 49 Yes 81mg Take 81 mg by mouth daily. [facility] lisinopril (PRINIVIL,Z ESTRIL) 20 mg tablet 2020-11 11:31: 49 Yes 20mg Take 20 mg by mouth 2 (two) times daily. [facility] verapamil (ISOPTIN) 120 mg tablet 2020-11 11:31: 49 Yes 120mg Take 120 mg by mouth 2 (two) times daily. [facility] ALBUTEROL INHALE 2020-11 11:31: 49 Yes Inhale. [facility] aspirin 81 mg EC tablet 2020-11 11:31: 49 Yes 81mg Take 81 mg by mouth daily. [facility] lisinopril (PRINIVIL,Z ESTRIL) 20 mg tablet 2020-11 11:31: 49 Yes 20mg Take 20 mg by mouth 2 (two) times daily. [facility] verapamil (ISOPTIN) 120 mg tablet 2020-11 11:31: 49 Yes 120mg Take 120 mg by mouth 2 (two) times daily. [facility] ALBUTEROL INHALE 2020-11 11:31: 49 Yes Inhale. [facility] simethicone (GAS RELIEF (SIMETHICON E)) 40 mg/0.6 mL drops 08-18 14:10: 00 Yes PRN, Starting on Mon08/18/21 at 0910, Until Discontinu ed, Routine, Intra-op [facility] simethicone (GAS RELIEF (SIMETHICON E)) 40 mg/0.6 mL drops 08-18 14:10: 00 08-18 17:12 :34 No PRN, Starting on Mon08/18/21 at 0910, Until Mon08/18/21 at 1212, Routine, Intra-op [facility] lactated ringers IV infusion 1,000 mL 08-18 13:15: 00 08-18 13:02 :00 No 1000mL at 42 mL/hr, 1,000 mL, IV Infusion, ONCE, 1 dose, On Mon08/18/21 at 0815, Routine, DSU Pre-op [facility] lactated ringers IV infusion 1,000 mL 08-18 13:15: 00 08-18 13:02 :00 No 1000mL at 42 mL/hr, 1,000 mL, IV Infusion, ONCE, 1 dose, On Mon08/18/21 at 0815, Routine, DSU Pre-op [facility] aspirin 81 mg EC tablet 08-18 10:12: 34 Yes 81mg Take 81 mg by mouth daily. [facility] lisinopril (PRINIVIL,Z ESTRIL) 20 mg tablet 08-18 10:12: 34 Yes 20mg Take 20 mg by mouth 2 (two) times daily. [facility] verapamil (ISOPTIN) 120 mg tablet 08-18 10:12: 34 Yes 120mg Take 120 mg by mouth 2 (two) times daily. [facility] aspirin 81 mg EC tablet 08-18 10:12: 34 Yes 81mg Take 81 mg by mouth daily. [facility] lisinopril (PRINIVIL,Z ESTRIL) 20 mg tablet 08-18 10:12: 34 Yes 20mg Take 20 mg by mouth 2 (two) times daily. [facility] verapamil (ISOPTIN) 120 mg tablet 08-18 10:12: 34 Yes 120mg Take 120 mg by mouth 2 (two) times daily. [facility] aspirin 81 mg EC tablet 08-18 10:12: 34 Yes 81mg Take 81 mg by mouth daily. [facility] lisinopril (PRINIVIL,Z ESTRIL) 20 mg tablet 08-18 10:12: 34 Yes 20mg Take 20 mg by mouth 2 (two) times daily. [facility] verapamil (ISOPTIN) 120 mg tablet 08-18 10:12: 34 Yes 120mg Take 120 mg by mouth 2 (two) times daily. [facility] aspirin 81 mg EC tablet 08-18 10:12: 34 Yes 81mg Take 81 mg by mouth daily. [facility] lisinopril (PRINIVIL,Z ESTRIL) 20 mg tablet 08-18 10:12: 34 Yes 20mg Take 20 mg by mouth 2 (two) times daily. [facility] verapamil (ISOPTIN) 120 mg tablet 08-18 10:12: 34 Yes 120mg Take 120 mg by mouth 2 (two) times daily. [facility] aspirin 81 mg EC tablet 2014-11 10:44: 23 Yes 81mg Take 81 mg by mouth daily. [facility] lisinopril (PRINIVIL,Z ESTRIL) 20 mg tablet 2014-11 10:44: 23 Yes 20mg Take 20 mg by mouth 2 (two) times daily. [facility] verapamil (ISOPTIN) 120 mg tablet 2014-11 10:44: 23 Yes 120mg Take 120 mg by mouth 2 (two) times daily. [facility] aspirin 81 mg EC tablet 2014-11 10:44: 23 Yes 81mg Take 81 mg by mouth daily. [facility] lisinopril (PRINIVIL,Z ESTRIL) 20 mg tablet 2014-11 10:44: 23 Yes 20mg Take 20 mg by mouth 2 (two) times daily. [facility] verapamil (ISOPTIN) 120 mg tablet 2014-11 10:44: 23 Yes 120mg Take 120 mg by mouth 2 (two) times daily. [facility] Vital Signs Vital Name Observation Time Observation Value Comments Lillian lopez Systolic blood pressure 2023-11-16 22:06:00 134 mm[Hg] [place] [facility] Diastolic blood pressure 2023-11-16 22:06:00 94 mm[Hg] [facility] Heart rate 2023-11-16 22:06:00 81 /min [facility] Body temperature 2023-11-16 22:06:00 37 [place] [facility] Respiratory rate 2023-11-16 22:06:00 18 /min [facility] Body height 2023-11-16 22:06:00 182.9 cm [facility] Body weight 2023-11-16 22:06:00 184.614 kg [facility] BMI 2023-11-16 22:06:00 55.20 kg/m2 [facility] Oxygen saturation in Arterial blood by Pulse oximetry 2023-11-16 22:06:00 99 /min [facility] Systolic blood pressure 2023-08-20 00:00:00 141 mm[Hg] [facility] Diastolic blood pressure 2023-08-20 00:00:00 69 mm[Hg] [facility] Heart rate 2023-08-20 00:00:00 76 /min [facility] Respiratory rate 2023-08-20 00:00:00 16 /min [facility] Oxygen saturation in Arterial blood by Pulse oximetry 2023-08-20 00:00:00 99 /min [facility] Body temperature 2023-08-19 18:43:00 37.22 [place] [facility] Body height 2023-08-19 18:43:00 182.9 cm [facility] Body weight 2023-08-19 18:43:00 185.294 kg [facility] BMI 2023-08-19 18:43:00 55.40 kg/m2 [facility] Systolic blood pressure 2021-11-04 16:37:00 146 mm[Hg] [facility] Diastolic blood pressure 2021-11-04 16:37:00 69 mm[Hg] [facility] Oxygen saturation in Arterial blood by Pulse oximetry 2021-11-04 16:37:00 99 /min [facility] Heart rate 2021-11-04 16:30:00 71 /min [facility] Respiratory rate 2021-11-04 16:30:00 24 /min [facility] Body temperature 2021-11-04 16:11:00 36.89 [place] [facility] Body height 2021-10-26 14:41:00 182.9 cm [facility] Body weight 2021-10-26 14:41:00 204.1 kg [facility] BMI 2021-10-26 14:41:00 61.01 kg/m2 [facility] Systolic blood pressure 2021-11-04 16:37:00 146 mm[Hg] [facility] Diastolic blood pressure 2021-11-04 16:37:00 69 mm[Hg] [facility] Oxygen saturation in Arterial blood by Pulse oximetry 2021-11-04 16:37:00 99 /min [facility] Heart rate 2021-11-04 16:30:00 71 /min [facility] Respiratory rate 2021-11-04 16:30:00 24 /min [facility] Body temperature 2021-11-04 16:11:00 36.89 [place] [facility] Body height 2021-10-26 14:41:00 182.9 cm [facility] Body weight 2021-10-26 14:41:00 204.1 kg [facility] BMI 2021-10-26 14:41:00 61.01 kg/m2 [facility] Systolic blood pressure 2021-08-18 15:00:00 158 mm[Hg] [facility] Diastolic blood pressure 2021-08-18 15:00:00 90 mm[Hg] [facility] Heart rate 2021-08-18 15:00:00 75 /min [facility] Respiratory rate 2021-08-18 15:00:00 20 /min [facility] Oxygen saturation in Arterial blood by Pulse oximetry 2021-08-18 15:00:00 100 /min [facility] Body temperature 2021-08-18 14:35:00 37.33 [place] [facility] Body height 2021-08-16 14:15:00 182.9 cm [facility] Body weight 2021-08-16 14:15:00 204.119 kg [facility] BMI 2021-08-16 14:15:00 61.03 kg/m2 [facility] Systolic blood pressure 2021-08-18 15:00:00 158 mm[Hg] [facility] Diastolic blood pressure 2021-08-18 15:00:00 90 mm[Hg] [facility] Heart rate 2021-08-18 15:00:00 75 /[facility] 2021-08-18 15:00:00 20 /min [facility] Oxygen saturation in Arterial blood by Pulse oximetry 2021-08-18 15:00:00 100 /min [facility] Body temperature 2021-08-18 14:35:00 37.33 [place] [facility] Body height 2021-08-16 14:15:00 182.9 cm [facility] Body weight 2021-08-16 14:15:00 204.119 kg [facility] BMI 2021-08-16 14:15:00 61.03 kg/m2 [facility] Procedures Procedure Date / Time Performed Performing Clinician Source ED JOINT ASPIRATION/INJECTION 2023-11-16 23:28:08 Brenna Manzano [facility] XR ELBOW >3 VW LEFT 2023-11-16 22:36:04 Brenna Manzano [facility] CONSENT/REFUSAL FOR DIAGNOSI S AND TREATMENT 2023-11-16 21:59:25 Doctor Unassigned, [place] [facility] BLOOD CULTURE SCREEN 2023-08-19 21:46:00 Stacie Moss [facility] BLOOD CULTURE SCREEN 2023-08-19 21:30:00 Stacie Moss [facility] COMP. METABOLIC PANEL ([id number]) 2023-08-19 20:50:00 Stacie Moss [facility] CBC WITH DIFF 2023-08-19 20:50:00 Stacie Moss [facility] ASSIGNMENT OF BENEFITS 2023-08-19 20:14:54 Doctor Unassigned, [place] [facility] US LOWER EXTREMITY VEIN WITH COMPRESSION LEFT (ONLY FOR RULE OUT DVT) 2023-08-19 20:06:20 Stacie Moss [facility] CONSENT/REFUSAL FOR DIAGNOSI S AND TREATMENT 2023-08-19 18:33:06 Doctor Unassigned, [place] [facility] HB CREATININE SERUM/BLOOD FO R IMAGING 2023-08-14 17:49:00 Liliane Galicia [facility] ASSIGNMENT OF BENEFITS 2023-08-14 17:20:00 Doctor Unassigned, [place] [facility] PHACOEMULSIFICATION OF CATARACT WITH INTRAOCULAR LENS IMPLANT 2021-11-04 15:35:00 Christal Joshua [facility] COVID-19 (ID NOW RAPID TESTING) 2021-11-02 14:19:00 Christal Joshua [facility] LAB ONLY COVID INTERPRETATION 2021-11-02 14:19:00 Christal Joshua [facility] ASSIGNMENT OF BENEFITS 2021-10-29 16:45:12 Doctor Unassigned, [place] [facility] COLONOSCOPY 2021-08-18 13:44:00 Aman Ardon [facility] COLONOSCOPY (ENDO) 2021-08-18 13:37:11 Quirino Talbot [facility] COLONOSCOPY (ENDO) 2021-08-18 13:37:11 Quirino Talbot [facility] COVID-19 (ID NOW RAPID TESTING) 2021-08-16 15:46:00 Aman Ardon [facility] ASSIGNMENT OF BENEFITS 2021-08-16 15:36:54 Doctor Unassigned, [place] [facility] [place] EXTERNAL PROVIDER RECORDS 2021-07-21 05:01:00 Doctor Unassigned, [place] [facility] EXTERNAL PROVIDER RECORDS 2021-07-21 05:01:00 Doctor Unassigned, [place] [facility] Encounters Start Date/Time End Date/Time Encounter Type Admission Type Attending [facility] Care Facility Care Department Encounter ID Source 2023-11-16 16:07:00 2023-11-16 17:56:00 Emergency X JOSE JUANALBERTOBRENNA [facility] ERT [id number] [facility] 2023-11-16 16:07:00 2023-11-16 17:56:00 Emergency Brenna Manzano [facility] 1.2.840.114 350.1.13.10 4.2.7.2.686 [id number] [facility] 2023-08-19 13:44:00 2023-08-19 19:23:00 Emergency X STACIE MOSS [facility] ERT [id number] [facility] 2023-08-19 13:44:00 2023-08-19 19:23:00 Emergency Stacie Moss Nancy [facility] 1.2.840.114 350.1.13.10 4.2.7.2.686 [id number] [facility] 2023-08-14 12:21:57 2023-08-14 23:59:00 Outpatient R LILIANE GALICIA [facility] [id number] [facility] 2023-08-14 12:21:57 2023-08-14 23:59:00 Hospital Encounter Liliane Galicia [facility] 1.2.840.114 350.1.13.10 4.2.7.2.686 [id number] [facility] 2023-08-14 00:00:00 2023-08-14 00:00:00 Orders Only Doctor Unassigned, [place] [facility] 1.2.840.114 350.1.13.10 4.2.7.2.686 [id number] [facility] 2021-11-04 10:24:00 2021-11-04 11:00:00 Surgery Christal Joshua [facility] 1.2.840.114 350.1.13.10 4.2.7.2.686 [id number] [facility] 2021-11-04 08:47:00 2021-11-04 10:45:00 Hospital Encounter Christal Joshua Bhanu [facility] 1.84.114 350.1.13.10 4.2.7.2.686 [id number] [facility] 2021-11-04 08:47:00 2021-11-04 10:45:00 Outpatient CHRISTAL WALLIS [facility] OPH [id number] [facility] 2021-11-02 08:00:00 2021-11-02 08:15:00 Laboratory Only Only, Adc Test ColtenChristal lauren [facility] 1.84.114 350.1.13.10 4.2.7.2.686 [id number] [facility] 2021-11-02 08:00:00 2021-11-02 08:00:00 Outpatient CHRISTAL WALLIS [facility] [id number] [facility] 2021-10-29 10:50:56 2021-10-29 11:05:56 Transportation Broker Visit Pob, [facility] Lab Adam ColtenChristal lauren [facility] 1.84.114 350.1.13.10 4.2.7.2.686 [id number] [facility] 2021-10-29 11:00:00 2021-10-29 11:00:00 Outpatient CHRISTAL WALLIS [facility] [id number] [facility] 2021-10-29 00:00:00 2021-10-29 00:00:00 Orders Only Doctor Unassigned, [place] [facility] 1..114 350.1.13.10 4.2.7.2.686 [id number] [facility] 2021-10-28 15:45:00 2021-10-28 15:45:00 Outpatient CHRISTAL WALLIS [facility] [id number] [facility] 2021-08-18 07:25:00 2021-08-18 10:08:00 Hospital Encounter Aman Rojas [facility] 1.2840.114 350.1.13.10 4.2.7.2.686 [id number] [facility] 2021-08-18 07:25:00 2021-08-18 10:08:00 Outpatient R AMAN ROJAS [facility] [id number] [facility] 2021-08-18 09:24:00 2021-08-18 10:01:00 Surgery Aman Rojas [facility] 1.2840.114 350.1.13.10 4.2.7.2.686 [id number] [facility] 2021-08-16 11:30:00 2021-08-16 11:30:00 Outpatient R AMAN ROJAS [facility] [id number] [facility] 2021-08-16 10:43:57 2021-08-16 10:58:57 Laboratory Only Only, Adc Test Aman Rojas [facility] 1.2840.114 350.1.13.10 4.2.7.2.686 [id number] [facility] 2021-08-16 00:00:00 2021-08-16 00:00:00 Orders Only Doctor Unassigned, [place] [facility] 1.2840.114 350.1.13.10 4.2.7.2.686 [id number] [facility] Results Test Description Test Time Test Comments Results Result Comments Source XR ELBOW >3 VW LEFT 22:55:20 ORDERING PHYSICIAN: TYRESE MANZANO HISTORY: left elbow swelling; pmh: bursitis . TECHNIQUE: Three views of the left elbow. COMPARISON: None available. FINDINGS: The exam demonstrates no evidence of an acute fracture ordislocation. No focal osseous lesion or bony deformity is apparent. Nojoint effusion is apparent on the lateral view. There is a prominentosteophytic like formation at the olecranon process in the region of theinsertion of the triceps tendon. There is also some calcifications in thisregion. There is overlying soft tissue swelling in the area, which would becompatible with the history of a bursitis. [facility] Notes Date/Time Note Provider Source 2023-11-16 17:55:18 TgKd7yQnCO5xn6ELvo9x /R577JestwvmIs TiIhM5hFPaOttwpizepUczJhpZToKk5532 -12-28T17:55:18 Pt given printed and verbal discharge instructions regarding bursitis of other bursa of left elbow and pain and swelling of left elbow, encouraged hydration,1 Prescriptions providedPt verbalized understanding of instructions, pt awake alert oriented, resp reg unlabored, skin w/d, color appropriate for race, moves all ext well,pt encouraged to follow up with pcp.Advised to seek medical attention for new/prolonged/worsening of symptoms,Symptoms improved.No adverse reaction to meds given in ER noted upon dischargeAwake, alert oriented, resp reg unlabored, skin w/d, pt leaving amb with steady gait, in no apparent distress, 24150-5Ksdlajead department OdmxSN5614-40-63I30:56:21[facility] NoteTXT1.2.840.425405.1.13.104.2.7 .2.305562|[id number] for patient cpzh61890-7LtdaOQACZQJKJFMFbyirxiv d C-CDA narrative [id number] M Felix RN[address] Fj[id number] 71BILOZZEUNZMGDNLJMIKLEQ2617-35-74 T17:56:211.2.840.681077.1.72.3.15| 1.2.840.373884.1.13.104.2.7.2.7278 [id number] Katie Ag RN [facility] 2023-11-16 16:40:47 Ym78nBA2VTC9N+gUxxOQ wSDbeHwI+ricen MIuX1XjTT9qf2a4xx8bmgRBM7IAnG90154 -12-28T16:40:47 LET applied to left elbow 79786-8Jbfdetnlc department LsqsBY5998-36-88D03:41:00[facility] NoteTXT1.2.840.551930.1.13.104.2.7 .2.089895|[id number] for patient gunm49479-6DntxHVQDNGGQYMAJnwbkfdj d C-CDA narrative text[address] El[id number] 22DFNAWSOFWKQOAEKMLDZBBV3405-65-57 T16:41:001.2.840.199299.1.72.3.15| 1.2.840.509201.1.13.104.2.7.2.7278 [id number] [facility] 2023-11-16 16:04:57 XoCpt6Sxp/G7PjJFBvuB N5ehuASmawd26M PnlnAaWN7cFK7pXLd6BymPJht9FrY61595 -12-28T16:04:57 Diagnosed with bursitis today by [facility]. Sent by them to ER to "have it drained". 80291-8Cdeffrbwn department Triage cgihVU7579-05-44R09:06:01[facility] Triage noteTXT1.2.840.611592.1.13.104.2.7 .2.050607|[id number] for patient blof95666-4Hopmjvshh department NoteLNNARRATIVEFormatted C-CDA narrative [id number] Fief RN[address] Uc[id number] 60MPAMFOCKVJZFIQKWMZZVOU7794-84-23 T16:06:011.2.840.535801.1.72.3.15| 1.2.840.757440.1.13.104.2.7.2.7278 [id number] Haven Alicea RN [facility]
[2024-01-06 04:15] LABS: Absolute Lymphocytes (CBC) 1.3 K/uL (0.7-4.9); Hematocrit 43.1 % (39.6-49.0); Lymphocytes % 17.7 % (15.3-44.8); MCV 91.8 fL (80-100); MPV 7.7 fL (7.6-11.3); Platelets 277 thou/uL (152-406)
[2024-01-06 04:32] LABS: Albumin 3.4 g/dL (3.4-5.0); Bilirubin Total 0.6 mg/dL (0.2-1.0); Potassium 3.6 mEq/L (3.5-5.1); Protein, Total 7.6 g/dL (6.4-8.2)
--- NOTE | 2024-01-06 04:45 | ER ---
Nurse's Notes [facility] Name: Grupo Mcdonald Jr Age: 63 yrs Sex: Male : 1960 Arrival Date: 01/06/2024 Time: 03:32 Bed 13 Private MD: Diagnosis: Other bursitis of elbow, left elbow Presentation: 01/06 03:40 Chief complaint: Patient states: left elbow pain of 7 with swelling and redness,onset pf1 yesterday. 03:40 Coronavirus screen: Vaccine status: Patient reports being unvaccinated. Client denies pf1 travel out of the [place] in the last 14 days. At this time, the client does not indicate any symptoms associated with coronavirus-19. Ebola Screen: Patient negative for fever greater than or equal to 101.5 degrees Fahrenheit, and additional compatible Ebola Virus Disease symptoms. Initial Sepsis Screen: Does the patient meet any 2 criteria? No. Patient's initial sepsis screen is negative. Does the patient have a suspected source of infection? No. Patient's initial sepsis screen is negative. Risk Assessment: Do you want to hurt yourself or someone else? Patient reports no desire to harm self or others. 03:40 Method Of Arrival: Ambulatory pf1 03:40 Acuity: MARTY 3 pf1 Historical: - Allergies: 03:55 Codeine; pf1 03:55 Vicodin; pf1 - PMHx: 03:55 asbestosis; Cellulitis; Gout; Hypertension; lymphedema; Pre Diabetes; Psoriatic pf1 Arthritis; stroke; - PSHx: 03:55 Appendectomy; cataracts; pf1 03:55 heart cath; pf1 - Immunization history:: Adult Immunizations not up to date, Client reports having NOT received the Covid vaccine. Last tetanus immunization: < 5 years ago Flu vaccine is not up to date. - Social history:: Smoking status: Patient denies any tobacco usage or history of. Patient/guardian denies using alcohol, the patient reports quitting approximately 30 years ago, Patient/guardian denies using street drugs. Screenin:39 [facility] ED Fall Risk Assessment (Adult) History of falling in the last 3 months, tm6 including since admission No falls in past 3 months (0 pts). Abuse screen: Denies threats or abuse. Denies injuries from another. Nutritional screening: No deficits noted. Tuberculosis screening: No symptoms or risk factors identified. Assessment: 04:31 General: Appears in no apparent distress. Behavior is calm, cooperative. Pain: tm6 Complains of pain in left elbow Pain currently is 8 out of 10 on a pain scale. Quality of pain is described as. Neuro: Level of Consciousness is awake, alert, obeys commands, Oriented to person, place, time, situation, Gait is steady. Cardiovascular: Capillary refill < 3 seconds Patient's skin is warm and dry. Respiratory: Airway is patent Respiratory effort is even, unlabored, Respiratory pattern is regular, symmetrical. GI: Abdomen is obese. : No signs and/or symptoms were reported regarding the genitourinary system. EENT: No signs and/or symptoms were reported regarding the EENT system. Derm: Abscess located on left elbow Reports pain. Musculoskeletal: No signs and/or symptoms reported regarding the musculoskeletal system. Vital Signs: 03:40 BP 133 / 94; Pulse 87; Resp 16; Temp 98.3; Pulse Ox 99% on R/A; Weight 181.44 kg; pf1 Height 6 ft. 0 in. ; Pain 7/10; 04:39 BP 116 / 80; Pulse 80; Pulse Ox 97% on R/A; Pain 8/10; tm6 04:56 BP 117 / 66; Pulse 80; Resp 20; Temp 98.2(TE); Pulse Ox 96% on R/A; Pain 5/10; tm6 03:40 Body Mass Index 54.25 (181.44 kg, 182.88 cm) pf1 03:40 Pain Scale: Adult pf1 04:39 Pain Scale: Adult tm6 04:56 Pain Scale: Adult tm6 ED Course: 03:39 Patient arrived in ED. gm2 03:39 Addy Resendiz MD is Attending Physician. ec2 03:53 Nataly Willis, DIANA is Primary Nurse. tm6 03:55 Triage completed. pf1 04:30 Inserted saline lock: 22 gauge in right hand, using aseptic technique. tm6 04:39 No provider procedures requiring assistance completed. tm6 04:39 Patient has correct armband on for positive identification. Call light in reach. tm6 Provided Education on: plan of care. Client placed on continuous cardiac and pulse oximetry monitoring. NIBP monitoring applied. Door closed. Noise minimized. 04:57 IV discontinued, intact, bleeding controlled, No redness/swelling at site. Pressure tm6 dressing applied. Administered Medications: 04:30 Drug: Clindamycin IVPB 300 mg IVPB once over 30 mins; (mix in 50 mL) Route: IVPB; tm6 Infused Over: 30 mins; Site: right hand; 04:39 Drug: Ondansetron IVP 4 mg IVP once; over 2 minutes Route: IVP; Site: right hand; tm6 04:39 Drug: Ketorolac IVP 15 mg IVP once Route: IVP; Site: right hand; tm6 Medication: 04:39 VIS not applicable for this client. tm6 Outcome: 04:44 Discharge ordered by . ec2 04:57 Discharged to home ambulatory, tm6 04:57 Condition: stable 04:57 Discharge instructions given to patient, Instructed on discharge instructions, follow up and referral plans. medication usage, Demonstrated understanding of instructions, follow-up care, medications, Prescriptions given X 1, 04:57 Patient left the ED. tm6 Signatures: Kenya Farley, RN RN pf1 Addy Resendiz MD MD ec2 Ashley Magana 2 Nataly Willis RN RN tm6
--- NOTE | 2024-01-06 04:45 | EDPHYS ---
Physician Documentation [facility] Name: Grupo Mcdonald Jr Age: 63 yrs Sex: Male : 1960 Arrival Date: 01/06/2024 Time: 03:32 Bed 13 Private MD: ED Physician Addy Resendiz HPI: 01/06 03:50 This 63 yrs old Male presents to ER via Unassigned with complaints of Swollen ec2 elbow/ red and hot to the touch. Elbow has drainage. 03:50 Patient arrives today for evaluation of a swollen right elbow. States he has a history ec2 of bursitis, states that it is red and swollen. Patient reports no fevers or chills, no nausea or vomiting. Patient reports no trauma to the area.. Historical: - Allergies: 03:55 Codeine; pf1 03:55 Vicodin; pf1 - PMHx: 03:55 asbestosis; Cellulitis; Gout; Hypertension; lymphedema; Pre Diabetes; Psoriatic pf1 Arthritis; stroke; - PSHx: 03:55 Appendectomy; cataracts; pf1 03:55 heart cath; pf1 - Immunization history:: Adult Immunizations not up to date, Client reports having NOT received the Covid vaccine. Last tetanus immunization: < 5 years ago Flu vaccine is not up to date. - Social history:: Smoking status: Patient denies any tobacco usage or history of. Patient/guardian denies using alcohol, the patient reports quitting approximately 30 years ago, Patient/guardian denies using street drugs. ROS: 03:50 Constitutional: as per hpi ec2 Exam: 03:50 Constitutional: GEN: NAD Head: atraumatic Eyes: EOMI Ears: External ears are ec2 normal. CV: regular rate LUNGS: no respiratory distress ABD: non-distended SKIN: Left elbow with inflamed bursa, erythema and warmth noted, joint with intact range of motion, erythema isolated to the bursa MSK: no evidence of trauma NEURO: moves all extremities equally Vital Signs: 03:40 BP 133 / 94; Pulse 87; Resp 16; Temp 98.3; Pulse Ox 99% on R/A; Weight 181.44 kg; pf1 Height 6 ft. 0 in. ; Pain 7/10; 04:39 BP 116 / 80; Pulse 80; Pulse Ox 97% on R/A; Pain 8/10; tm6 04:56 BP 117 / 66; Pulse 80; Resp 20; Temp 98.2(TE); Pulse Ox 96% on R/A; Pain 5/10; tm6 03:40 Body Mass Index 54.25 (181.44 kg, 182.88 cm) pf1 03:40 Pain Scale: Adult pf1 04:39 Pain Scale: Adult tm6 04:56 Pain Scale: Adult tm6 MDM: 03:41 Patient medically screened. ec2 03:50 ED course: Patient arrives today for evaluation of left elbow swelling and erythema. ec2 Examination remarkable for findings as noted above. Presentation consistent with a septic bursitis, low suspicion for septic joint given the patient's intact range of motion. Will obtain lab work to evaluate for organ dysfunction. Will also give the patient clindamycin empirically.. 04:21 Data reviewed: vital signs. ED course: CBC with reassuring blood counts.. ec2 04:42 ED course: Metabolic profile reassuring.. ED course: Presentation consistent with ec2 septic bursitis, will discharge home with prescription for clindamycin and follow-up with her primary care doctor. Return precautions given.. 01/06 03:49 Order name: CBC with Diff; Complete Time: 04:21 ec2 01/06 03:49 Order name: CMP; Complete Time: 04:42 ec2 Administered Medications: 04:30 Drug: Clindamycin IVPB 300 mg IVPB once over 30 mins; (mix in 50 mL) Route: IVPB; tm6 Infused Over: 30 mins; Site: right hand; 04:39 Drug: Ondansetron IVP 4 mg IVP once; over 2 minutes Route: IVP; Site: right hand; tm6 04:39 Drug: Ketorolac IVP 15 mg IVP once Route: IVP; Site: right hand; tm6 Disposition Summary: 01/06/24 04:44 Discharge Ordered Notes: Location: Home ec2 Condition: Stable ec2 Diagnosis - Other bursitis of elbow, left elbow ec2 Followup: ec2 - With: Private Physician - When: - Reason: Re-evaluation by your physician Discharge Instructions: - Discharge Summary Sheet ec2 - Elbow Bursitis, Tcfz-us-Gwti ec2 Forms: - Medication Reconciliation Form ec2 - Thank You Letter ec2 - Antibiotic Education ec2 - Prescription Opioid Use ec2 - Patient Portal Instructions ec2 - Leadership Thank You Letter ec2 Prescriptions: - Clindamycin HCl 300 mg Oral capsule - take 1 capsule ORAL route every 8 hours for 10 days; 30 capsule; Refills: 0, ec2 Product Selection Permitted Signatures: Dispatcher [employer] Kenya Potts RN RN pf1 Addy Resendiz MD MD ec2 Nataly Willis RN RN tm6
[2024-01-06 05:20] VITALS: BP 117/66; TEMP 98.2; O2SAT 96
== END ==
LOC: ER 03:32
DX: M71.522 Other bursitis, not elsewhere classified, left elbow (principal); Z88.5 Allergy status to narcotic agent
CPT/HCPCS: 85025; 36415; 80053; 96375; 96374; 99284; J2405

== ENCOUNTER 2024-01-17 12:53 | Observation (INO) | payer OTHER ==
--- OUTSIDE RECORDS SUMMARY | 2024-01-17 12:56 | XMS REPORT | Continuity of Care Document ---
Author Name Unknown Address [address] [facility] [address] [place] [address] [facility] thconnect Address [address] [facility] [address] [place] [address] Care Team Providers Care Intellectual Property Legal Assistant Name Role Phone QUIRINO TALBOT Primary Care Physician Unavailab BRENNA Farrar Attending Clinician Unavailable STACIE MOSS Attending Clinician Stacie Young MD Attending Clinician + LILIANE GALICIA Attending Clinician Unavailable Liliane Galicia MD Attending Clinician [phone] Doctor Unassigned, [place] Attending Clinician Christal Mccrary MD Attending Clinician +- [phone] CHRISTAL JOSHUA Attending Clinician Lisa cruz Only, Adc Test Attending Clinician Unavailable Pob, [facility] Main Attending Clinician UnavailAman Malhotra MD Attending Clinician + [phone] AMAN ARDON Attending Clinician BRENNA Odonnell Admitting Clinician Unavailable STACIE MOSS Admitting Clinician LILIANE Morrell Admitting Clinician Unavailable Christal Joshua MD Admitting Clinician + [phone] CHRISTAL JOSHUA Admitting Clinician Aman Lucas MD Admitting Clinician + [phone] AMAN ARDON Admitting Clinician Lisa cruz Payers Payer Name Policy Type Policy Number Effective Date Expirati on Date Source [employer]AGE [id number] 2021 00:00:00 Problems Condition Name Condition Details Condition Category Status Onset Date Resolution Date Last Treatment Date Treating Clinician Comments Source Acute bursitis Acute bursitis Disease Active 2022-11 00:00: 00 [facility] Body mass index (BMI) 60.0-69.9, adult Body mass index (BMI) 60.0-69.9, adult Disease Active 2022-11 00:00: 00 [facility] Abdominal pain of unknown etiology Abdominal pain of unknown etiology Disease Active 8-31 00:00: 00 [facility] Candidal intertrigo Candidal intertrigo Disease Active 04-05 00:00: 00 [facility] 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 Disease Active 17 00:00: 00 [facility] Diabetes mellitus Diabetes mellitus Disease Active 505 00:00: 00 [facility] Psoriatic arthritis Psoriatic arthritis Disease Active 2021-11 1-15 00:00: 00 [facility] Acute serous otitis media of right ear Acute serous otitis media of right ear Disease Active 4- 00:00: 00 [facility] Bronchitis Bronchitis Disease Active 2019-11 00:00: 00 [facility] Cellulitis of left lower limb Cellulitis of left lower limb Disease Active 2019-11 00:00: 00 [facility] Hyperchole sterolemia Hyperchole sterolemia Disease Active 2019-11 00:00: 00 [facility] Chronic low back pain Chronic low back pain Disease Active 04-17 00:00: 00 [facility] Gastroesop hageal reflux disease Gastroesop hageal reflux disease Disease Active 04-17 00:00: 00 [facility] Hypertensi on Hypertensi on Disease Active 04-17 00:00: 00 [facility] Dyslipidem ia Dyslipidem ia Disease Active 03-25 00:00: 00 [facility] History of cerebrovas cular accident History of cerebrovas cular accident Disease Active 03-25 00:00: 00 [facility] Varicose veins of unspecifie d lower extremity with ulcer other part of lower leg (CODE) Varicose veins of unspecifie d lower extremity with ulcer other part of lower leg (CODE) Disease Active 08-05 00:00: 00 [facility] Allergies, Adverse Reactions, Alerts Allergy Name Allergy Type Status Severity Reaction(s) Onset Date Inactive Date Treating Clinician Comments Source Hydrocod one-Acet aminophe n Propensi ty to adverse reaction s Active Unknown - See comments 08-16 00:00: 00 Shakes [facility] HYDROCOD ONE-ACET AMINOPHE N DRUG Active Unknown-Cmnt 08-16 00:00: 00 [facility] Codeine Propensi ty to adverse reaction s to drug Active Nausea and/or Vomiting 2014-11 00:00: 00 [facility] CODEINE DRUG INGREDI Active Med N/V 2014-11 00:00: 00 [facility] Social History Social Habit Start Date Stop Date Quantity Comments Source Exposure to SARS-CoV-2 (event) Not sure [facility] Alcohol intake 2023-11-16 00:00:00 2023-11-16 00:00:00 Current non-drinker of alcohol (finding) [facility] History of Social function 2021-11-04 00:00:00 2021-11-04 00:00:00 [facility] Tobacco use and exposure 2015-09-08 00:00:00 2015-09-08 00:00:00 Smokeless tobacco non-user [facility] Sex Assigned At 1960 00:00:00 1960 00:00:00 [facility] Smoking Status Start Date Stop Date Source Never smoked tobacco [facility] Medications Ordered Medication Name Filled Medication Name Start Date Stop Date Current Medication? Ordering Clinician Indication Dosage Frequency Signature (SIG) Comments Components Source indomethaci n (INDOCIN) capsule 50 mg 2022-11 00:00: 00 11-16 23:17 :00 No 50mg 50 mg, Oral, ONCE, 1 dose, On Mariajose 11/16/23 at 1800, Routine [facility] indomethaci n 50 mg capsule 2022-11 00:00: 00 Yes [id number] 50mg Take 1 capsule by mouth 3 (three) times daily as needed for Pain for up to 15 doses. [facility] vancomycin (VANCOCIN) 1,500 mg in [...] Tissue
Duration of Therapy: Other (see Comments) [facility] clindamycin 150 mg capsule 08-19 00:00: 00 08-30 04:59 :00 No [id number] 450mg Take 3 capsules by mouth 4 (four) times daily for 10 days. [facility] iopamidol (ISOVUE 370-500 mL) injection 100 mL 08-14 19:00: 00 08-14 18:10 :00 No [id number] 100mL 100 mL, Intravenou s, ONCE, 1 dose, On 08/14/23 at 1400, Routine [facility] water for irrigation irrigation solution 2020-11 15:49: 00 Yes PRN, Starting on Mariajose 11/04/21 at 0949, Until Discontinu ed, Routine, Intra-op [facility] neomycin-po lymyxin-dex amethasone (MAXITROL) 3.5 mg/g-10,000 unit/g-0.1 % ophthalmic ointment 2020-11 15:49: 00 Yes PRN, Starting on Mariajose 11/04/21 at 0949, Until Discontinu ed, Routine, Intra-op [facility] gentamicin injection 2020-11 15:49: 00 Yes PRN, Starting on Mariajose 11/04/21 at 0949, Until Discontinu ed, AGUILA, Intra-op [facility] water for irrigation irrigation solution 2020-11 15:49: 00 11-04 19:36 :50 No PRN, Starting on Mariajose 11/04/21 at 0949, Until Mariajose 11/04/21 at 1336, Routine, Intra-op [facility] neomycin-po lymyxin-dex amethasone (MAXITROL) 3.5 mg/g-10,000 unit/g-0.1 % ophthalmic ointment 2020-11 15:49: 00 11-04 19:36 :50 No PRN, Starting on Mariajose 11/04/21 at 0949, Until Mariajose 11/04/21 at 1336, Routine, Intra-op [facility] gentamicin injection 2020-11 15:49: 00 11-04 19:36 :50 No PRN, Starting on Mariajose 11/04/21 at 0949, Until Mariajose 11/04/21 at 1336, AGUILA, Intra-op [facility] DUOVISC (DUOVISC VISCO ELASTIC) 3 %-4 %(0.5 mL) 1 % (0.55 mL) intraocular injection 2020-11 15:48: 00 Yes PRN, Starting on Mariajose 11/04/21 at 0948, Until Discontinu ed, Routine, Intra-op [facility] dexamethaso ne (DECADRON PHOSPHATE) injection 2020-11 15:48: 00 Yes PRN, Starting on Mariajose 11/04/21 at 0948, Until Discontinu ed, Routine, Intra-op [facility] NaCl 0.9% (NS) injection 2020-11 15:48: 00 Yes PRN, Starting on Mariajose 11/04/21 at 0948, Until Discontinu ed, Routine, Intra-op [facility] DUOVISC (DUOVISC VISCO ELASTIC) 3 %-4 %(0.5 mL) 1 % (0.55 mL) intraocular injection 2020-11 15:48: 00 11-04 19:36 :50 No PRN, Starting on Mariajose 11/04/21 at 0948, Until Mariajose 11/04/21 at 1336, Routine, Intra-op [facility] dexamethaso ne (DECADRON PHOSPHATE) injection 2020-11 15:48: 00 11-04 19:36 :50 No PRN, Starting on Mariajose 11/04/21 at 0948, Until Mariajose 11/04/21 at 1336, Routine, Intra-op [facility] NaCl 0.9% (NS) injection 2020-11 15:48: 00 11-04 19:36 :50 No PRN, Starting on Mariajose 11/04/21 at 0948, Until Mariajose 11/04/21 at 1336, Routine, Intra-op [facility] ceFAZolin (ANCEF) injection 2020-11 15:47: 00 Yes PRN, Starting on Mariajose 11/04/21 at 0947, Until Discontinu ed, AGUILA, Intra-op [facility] tetracaine (PONTOCAINE ) 0.5 % ophthalmic drops 2020-11 15:47: 00 Yes PRN, Starting on Mariajose 11/04/21 at 0947, Until Discontinu ed, Routine, Intra-op [facility] ceFAZolin (ANCEF) injection 2020-11 15:47: 00 11-04 19:36 :50 No PRN, Starting on Mariajose 11/04/21 at 0947, Until Mariajose 11/04/21 at 1336, AGUILA, Intra-op [facility] tetracaine (PONTOCAINE ) 0.5 % ophthalmic drops 2020-11 15:47: 00 11-04 19:36 :50 No PRN, Starting on Mariajose 11/04/21 at 0947, Until Mariajose 11/04/21 at 1336, Routine, Intra-op [facility] eye block syringe 11 mL 2020-11 15:46: 00 Yes PRN, Starting on Mariajose 11/04/21 at 0946, Until Discontinu ed, Intra-op [facility] eye block syringe 11 mL 2020-11 15:46: 00 11-04 19:36 :50 No PRN, Starting on Mariajose 11/04/21 at 0946, Until Mariajose 11/04/21 at 1336, Intra-op [facility] EPINEPHrine (PF) 1:1,000 (1 mg/mL) (ADRENALIN (PF)) injection 2020-11 15:45: 00 Yes PRN, Starting on Mariajose 11/04/21 at 0945, Until Discontinu ed, Routine, Intra-op [facility] EPINEPHrine (PF) 1:1,000 (1 mg/mL) (ADRENALIN (PF)) injection 2020-11 15:45: 00 11-04 19:36 :50 No PRN, Starting on Mariajose 11/04/21 at 0945, Until Mariajose 11/04/21 at 1336, Routine, Intra-op [facility] balanced salt soln no.2 irrig. (BSS) ophthalmic solution 2020-11 15:44: 00 Yes PRN, Starting on Mariajose 11/04/21 at 0944, Until Discontinu ed, Routine, Intra-op [facility] balanced salt soln no.2 irrig. (BSS) ophthalmic solution 2020-11 15:44: 00 11-04 19:36 :50 No PRN, Starting on Mariajose 11/04/21 at 0944, Until Mariajose 11/04/21 at 1336, Routine, Intra-op [facility] cyclopent 1%-tropic 1%-phenyl 2.5%-ketor 0.5% (MYDRIATIC #5) ophthalmic solution syringe 0.5 mL 2020-11 15:00: 00 11-04 15:01 :00 No .5mL 0.5 mL, Right Eye, ONCE, 1 dose, On Mariajose 11/04/21 at 0900, Routine, DSU Pre-op [facility] lactated ringers IV infusion 1,000 mL 2020-11 15:00: 00 11-04 15:01 :00 No 1000mL at 42 mL/hr, 1,000 mL, IV Infusion, ONCE, 1 dose, On Mariajose 11/04/21 at 0900, Routine, DSU Pre-op [facility] cyclopent 1%-tropic 1%-phenyl 2.5%-ketor 0.5% (MYDRIATIC #5) ophthalmic solution syringe 0.5 mL 2020-11 15:00: 00 11-04 15:01 :00 No .5mL 0.5 mL, Right Eye, ONCE, 1 dose, On Mariajose 11/04/21 at 0900, Routine, DSU Pre-op [facility] lactated ringers IV infusion 1,000 mL 2020-11 15:00: 00 11-04 15:01 :00 No 1000mL at 42 mL/hr, 1,000 mL, IV Infusion, ONCE, 1 dose, On Mariajose 11/04/21 at 0900, Routine, DSU Pre-op [facility] aspirin 81 mg EC tablet 2020-11 11:31: 49 Yes 81mg Take 81 mg by mouth daily. [facility] lisinopril (PRINIVIL,Z ESTRIL) 20 mg tablet 2020-11 11:31: 49 Yes 20mg Take 20 mg by mouth 2 (two) times daily. [facility] verapamil (ISOPTIN) 120 mg tablet 2020-11 11:31: 49 Yes 120mg Take 120 mg by mouth 2 (two) times daily. [facility] ALBUTEROL INHALE 2020-11 11:31: 49 Yes Inhale. [facility] aspirin 81 mg EC tablet 2020-11 11:31: 49 Yes 81mg Take 81 mg by mouth daily. [facility] lisinopril (PRINIVIL,Z ESTRIL) 20 mg tablet 2020-11 11:31: 49 Yes 20mg Take 20 mg by mouth 2 (two) times daily. [facility] verapamil (ISOPTIN) 120 mg tablet 2020-11 11:31: 49 Yes 120mg Take 120 mg by mouth 2 (two) times daily. [facility] ALBUTEROL INHALE 2020-11 11:31: 49 Yes Inhale. [facility] aspirin 81 mg EC tablet 2020-11 11:31: 49 Yes 81mg Take 81 mg by mouth daily. [facility] lisinopril (PRINIVIL,Z ESTRIL) 20 mg tablet 2020-11 11:31: 49 Yes 20mg Take 20 mg by mouth 2 (two) times daily. [facility] verapamil (ISOPTIN) 120 mg tablet 2020-11 11:31: 49 Yes 120mg Take 120 mg by mouth 2 (two) times daily. [facility] ALBUTEROL INHALE 2020-11 11:31: 49 Yes Inhale. [facility] aspirin 81 mg EC tablet 2020-11 11:31: 49 Yes 81mg Take 81 mg by mouth daily. [facility] lisinopril (PRINIVIL,Z ESTRIL) 20 mg tablet 2020-11 11:31: 49 Yes 20mg Take 20 mg by mouth 2 (two) times daily. [facility] verapamil (ISOPTIN) 120 mg tablet 2020-11 11:31: 49 Yes 120mg Take 120 mg by mouth 2 (two) times daily. [facility] ALBUTEROL INHALE 2020-11 11:31: 49 Yes Inhale. [facility] aspirin 81 mg EC tablet 2020-11 11:31: 49 Yes 81mg Take 81 mg by mouth daily. [facility] lisinopril (PRINIVIL,Z ESTRIL) 20 mg tablet 2020-11 11:31: 49 Yes 20mg Take 20 mg by mouth 2 (two) times daily. [facility] verapamil (ISOPTIN) 120 mg tablet 2020-11 11:31: 49 Yes 120mg Take 120 mg by mouth 2 (two) times daily. [facility] ALBUTEROL INHALE 2020-11 11:31: 49 Yes Inhale. [facility] aspirin 81 mg EC tablet 2020-11 11:31: 49 Yes 81mg Take 81 mg by mouth daily. [facility] lisinopril (PRINIVIL,Z ESTRIL) 20 mg tablet 2020-11 11:31: 49 Yes 20mg Take 20 mg by mouth 2 (two) times daily. [facility] verapamil (ISOPTIN) 120 mg tablet 2020-11 11:31: 49 Yes 120mg Take 120 mg by mouth 2 (two) times daily. [facility] ALBUTEROL INHALE 2020-11 11:31: 49 Yes Inhale. [facility] aspirin 81 mg EC tablet 2020-11 11:31: 49 Yes 81mg Take 81 mg by mouth daily. [facility] lisinopril (PRINIVIL,Z ESTRIL) 20 mg tablet 2020-11 11:31: 49 Yes 20mg Take 20 mg by mouth 2 (two) times daily. [facility] verapamil (ISOPTIN) 120 mg tablet 2020-11 11:31: 49 Yes 120mg Take 120 mg by mouth 2 (two) times daily. [facility] ALBUTEROL INHALE 2020-11 11:31: 49 Yes Inhale. [facility] simethicone (GAS RELIEF (SIMETHICON E)) 40 mg/0.6 mL drops 08-18 14:10: 00 Yes PRN, Starting on Mon08/18/21 at 0910, Until Discontinu ed, Routine, Intra-op [facility] simethicone (GAS RELIEF (SIMETHICON E)) 40 mg/0.6 mL drops 08-18 14:10: 00 08-18 17:12 :34 No PRN, Starting on Mon08/18/21 at 0910, Until Mon08/18/21 at 1212, Routine, Intra-op [facility] lactated ringers IV infusion 1,000 mL 08-18 13:15: 00 08-18 13:02 :00 No 1000mL at 42 mL/hr, 1,000 mL, IV Infusion, ONCE, 1 dose, On Mon08/18/21 at 0815, Routine, DSU Pre-op [facility] lactated ringers IV infusion 1,000 mL 08-18 13:15: 00 08-18 13:02 :00 No 1000mL at 42 mL/hr, 1,000 mL, IV Infusion, ONCE, 1 dose, On Mon08/18/21 at 0815, Routine, DSU Pre-op [facility] aspirin 81 mg EC tablet 08-18 10:12: 34 Yes 81mg Take 81 mg by mouth daily. [facility] lisinopril (PRINIVIL,Z ESTRIL) 20 mg tablet 08-18 10:12: 34 Yes 20mg Take 20 mg by mouth 2 (two) times daily. [facility] verapamil (ISOPTIN) 120 mg tablet 08-18 10:12: 34 Yes 120mg Take 120 mg by mouth 2 (two) times daily. [facility] aspirin 81 mg EC tablet 08-18 10:12: 34 Yes 81mg Take 81 mg by mouth daily. [facility] lisinopril (PRINIVIL,Z ESTRIL) 20 mg tablet 08-18 10:12: 34 Yes 20mg Take 20 mg by mouth 2 (two) times daily. [facility] verapamil (ISOPTIN) 120 mg tablet 08-18 10:12: 34 Yes 120mg Take 120 mg by mouth 2 (two) times daily. [facility] aspirin 81 mg EC tablet 08-18 10:12: 34 Yes 81mg Take 81 mg by mouth daily. [facility] lisinopril (PRINIVIL,Z ESTRIL) 20 mg tablet 08-18 10:12: 34 Yes 20mg Take 20 mg by mouth 2 (two) times daily. [facility] verapamil (ISOPTIN) 120 mg tablet 08-18 10:12: 34 Yes 120mg Take 120 mg by mouth 2 (two) times daily. [facility] aspirin 81 mg EC tablet 08-18 10:12: 34 Yes 81mg Take 81 mg by mouth daily. [facility] lisinopril (PRINIVIL,Z ESTRIL) 20 mg tablet 08-18 10:12: 34 Yes 20mg Take 20 mg by mouth 2 (two) times daily. [facility] verapamil (ISOPTIN) 120 mg tablet 08-18 10:12: 34 Yes 120mg Take 120 mg by mouth 2 (two) times daily. [facility] aspirin 81 mg EC tablet 2014-11 10:44: 23 Yes 81mg Take 81 mg by mouth daily. [facility] lisinopril (PRINIVIL,Z ESTRIL) 20 mg tablet 2014-11 10:44: 23 Yes 20mg Take 20 mg by mouth 2 (two) times daily. [facility] verapamil (ISOPTIN) 120 mg tablet 2014-11 10:44: 23 Yes 120mg Take 120 mg by mouth 2 (two) times daily. [facility] aspirin 81 mg EC tablet 2014-11 10:44: 23 Yes 81mg Take 81 mg by mouth daily. [facility] lisinopril (PRINIVIL,Z ESTRIL) 20 mg tablet 2014-11 10:44: 23 Yes 20mg Take 20 mg by mouth 2 (two) times daily. [facility] verapamil (ISOPTIN) 120 mg tablet 2014-11 10:44: 23 Yes 120mg Take 120 mg by mouth 2 (two) times daily. [facility] Vital Signs Vital Name Observation Time Observation Value Comments Lillian lopez Systolic blood pressure 2023-11-16 22:06:00 134 mm[Hg] Telephone o [facility] Diastolic blood pressure 2023-11-16 22:06:00 94 mm[Hg] [facility] Heart rate 2023-11-16 22:06:00 81 /min [facility] Body temperature 2023-11-16 22:06:00 37 [place] [facility] Respiratory rate 2023-11-16 22:06:00 18 /min [facility] Body height 2023-11-16 22:06:00 182.9 cm [facility] Body weight 2023-11-16 22:06:00 184.614 kg [facility] BMI 2023-11-16 22:06:00 55.20 kg/m2 [facility] Oxygen saturation in Arterial blood by Pulse oximetry 2023-11-16 22:06:00 99 /min [facility] Systolic blood pressure 2023-08-20 00:00:00 141 mm[Hg] [facility] Diastolic blood pressure 2023-08-20 00:00:00 69 mm[Hg] [facility] Heart rate 2023-08-20 00:00:00 76 /min [facility] Respiratory rate 2023-08-20 00:00:00 16 /min [facility] Oxygen saturation in Arterial blood by Pulse oximetry 2023-08-20 00:00:00 99 /min [facility] Body temperature 2023-08-19 18:43:00 37.22 [place] [facility] Body height 2023-08-19 18:43:00 182.9 cm [facility] Body weight 2023-08-19 18:43:00 185.294 kg [facility] BMI 2023-08-19 18:43:00 55.40 kg/m2 [facility] Systolic blood pressure 2021-11-04 16:37:00 146 mm[Hg] [facility] Diastolic blood pressure 2021-11-04 16:37:00 69 mm[Hg] [facility] Oxygen saturation in Arterial blood by Pulse oximetry 2021-11-04 16:37:00 99 /min [facility] Heart rate 2021-11-04 16:30:00 71 /min [facility] Respiratory rate 2021-11-04 16:30:00 24 /min [facility] Body temperature 2021-11-04 16:11:00 36.89 [place] [facility] Body height 2021-10-26 14:41:00 182.9 cm [facility] Body weight 2021-10-26 14:41:00 204.1 kg [facility] BMI 2021-10-26 14:41:00 61.01 kg/m2 [facility] Systolic blood pressure 2021-11-04 16:37:00 146 mm[Hg] [facility] Diastolic blood pressure 2021-11-04 16:37:00 69 mm[Hg] [facility] Oxygen saturation in Arterial blood by Pulse oximetry 2021-11-04 16:37:00 99 /min [facility] Heart rate 2021-11-04 16:30:00 71 /min [facility] Respiratory rate 2021-11-04 16:30:00 24 /min [facility] Body temperature 2021-11-04 16:11:00 36.89 [place] [facility] Body height 2021-10-26 14:41:00 182.9 cm [facility] Body weight 2021-10-26 14:41:00 204.1 kg [facility] BMI 2021-10-26 14:41:00 61.01 kg/m2 [facility] Systolic blood pressure 2021-08-18 15:00:00 158 mm[Hg] [facility] Diastolic blood pressure 2021-08-18 15:00:00 90 mm[Hg] [facility] Heart rate 2021-08-18 15:00:00 75 /min [facility] Respiratory rate 2021-08-18 15:00:00 20 /min [facility] Oxygen saturation in Arterial blood by Pulse oximetry 2021-08-18 15:00:00 100 /min [facility] Body temperature 2021-08-18 14:35:00 37.33 [place] [facility] Body height 2021-08-16 14:15:00 182.9 cm [facility] Body weight 2021-08-16 14:15:00 204.119 kg [facility] BMI 2021-08-16 14:15:00 61.03 kg/m2 [facility] Systolic blood pressure 2021-08-18 15:00:00 158 mm[Hg] [facility] Diastolic blood pressure 2021-08-18 15:00:00 90 mm[Hg] [facility] Heart rate 2021-08-18 15:00:00 75 /min [facility] Respiratory rate 2021-08-18 15:00:00 20 /min [facility] Oxygen saturation in Arterial blood by Pulse oximetry 2021-08-18 15:00:00 100 /min [facility] Body temperature 2021-08-18 14:35:00 37.33 [place] [facility] Body height 2021-08-16 14:15:00 182.9 cm [facility] Body weight 2021-08-16 14:15:00 204.119 kg [facility] BMI 2021-08-16 14:15:00 61.03 kg/m2 [facility] Procedures Procedure Date / Time Performed Performing Clinician Source ED JOINT ASPIRATION/INJECTION 2023-11-16 23:28:08 Brenna Manzano [facility] XR ELBOW >3 VW LEFT 2023-11-16 22:36:04 Brenna Manzano [facility] CONSENT/REFUSAL FOR DIAGNOSI S AND TREATMENT 2023-11-16 21:59:25 Doctor Unassigned, [place] [facility] BLOOD CULTURE SCREEN 2023-08-19 21:46:00 Stacie Moss [facility] BLOOD CULTURE SCREEN 2023-08-19 21:30:00 Stacie Moss [facility] COMP. METABOLIC PANEL ([id number]) 2023-08-19 20:50:00 Stacie Moss [facility] CBC WITH DIFF 2023-08-19 20:50:00 Stacie Moss [facility] ASSIGNMENT OF BENEFITS 2023-08-19 20:14:54 Doctor Unassigned, [place] [facility] US LOWER EXTREMITY VEIN WITH COMPRESSION LEFT (ONLY FOR RULE OUT DVT) 2023-08-19 20:06:20 Stacie Moss [facility] CONSENT/REFUSAL FOR DIAGNOSI S AND TREATMENT 2023-08-19 18:33:06 Doctor Unassigned, [place] [facility] HB CREATININE SERUM/BLOOD FO R IMAGING 2023-08-14 17:49:00 Liliane Galicia [facility] ASSIGNMENT OF BENEFITS 2023-08-14 17:20:00 Doctor Unassigned, [place] [facility] PHACOEMULSIFICATION OF CATARACT WITH INTRAOCULAR LENS IMPLANT 2021-11-04 15:35:00 Christal Joshua [facility] COVID-19 (ID NOW RAPID TESTING) 2021-11-02 14:19:00 Christal Joshua [facility] LAB ONLY COVID INTERPRETATION 2021-11-02 14:19:00 Christal Joshua [facility] ASSIGNMENT OF BENEFITS 2021-10-29 16:45:12 Doctor Unassigned, [place] [facility] COLONOSCOPY 2021-08-18 13:44:00 Aman Ardon [facility] COLONOSCOPY (ENDO) 2021-08-18 13:37:11 Quirino Talbot [facility] COLONOSCOPY (ENDO) 2021-08-18 13:37:11 Quirino Talbot [facility] COVID-19 (ID NOW RAPID TESTING) 2021-08-16 15:46:00 Aman Ardon [facility] ASSIGNMENT OF BENEFITS 2021-08-16 15:36:54 Doctor Unassigned, [place] [facility] EXTERNAL PROVIDER RECORDS 2021-07-21 05:01:00 Doctor Unassigned, [place] [facility] EXTERNAL PROVIDER RECORDS 2021-07-21 05:01:00 Doctor Unassigned, [place] [facility] Encounters Start Date/Time End Date/Time Encounter Type Admission Type Attending [facility] Care Facility Care Department Encounter ID Source 2023-11-16 16:07:00 2023-11-16 17:56:00 Emergency X JOSE JUANALBERTOBRENNA [facility] ERT [id number] [facility] 2023-11-16 16:07:00 2023-11-16 17:56:00 Emergency Brenna Manzano [facility] 1.2.840.114 350.1.13.10 4.2.7.2.686 [id number] [facility] 2023-08-19 13:44:00 2023-08-19 19:23:00 Emergency X STACIE MOSS [facility] ERT [id number] [facility] 2023-08-19 13:44:00 2023-08-19 19:23:00 Emergency Stacie Moss Nancy [facility] 1.2.840.114 350.1.13.10 4.2.7.2.686 [id number] [facility] 2023-08-14 12:21:57 2023-08-14 23:59:00 Outpatient R LILIANE GALICIA [facility] [id number] [facility] 2023-08-14 12:21:57 2023-08-14 23:59:00 Hospital Encounter Liliane Galicia [facility] 1.2.840.114 350.1.13.10 4.2.7.2.686 [id number] [facility] 2023-08-14 00:00:00 2023-08-14 00:00:00 Orders Only Doctor Unassigned, [place] [facility] 1.2.840.114 350.1.13.10 4.2.7.2.686 [id number] [facility] 2021-11-04 10:24:00 2021-11-04 11:00:00 Surgery Christal Joshua [facility] 1.2.840.114 350.1.13.10 4.2.7.2.686 [id number] [facility] 2021-11-04 08:47:00 2021-11-04 10:45:00 Hospital Encounter Christal Joshua Bhanu [facility] 1.84.114 350.1.13.10 4.2.7.2.686 [id number] [facility] 2021-11-04 08:47:00 2021-11-04 10:45:00 Outpatient CHRISTAL WALLIS [facility] OPH [id number] [facility] 2021-11-02 08:00:00 2021-11-02 08:15:00 Laboratory Only Only, Adc Test ColtenChristal lauren [facility] 1.84.114 350.1.13.10 4.2.7.2.686 [id number] [facility] 2021-11-02 08:00:00 2021-11-02 08:00:00 Outpatient CHRISTAL WALLIS [facility] [id number] [facility] 2021-10-29 10:50:56 2021-10-29 11:05:56 Help Desk Support Visit Pob, [facility] Adam ColtenChristal lauren [facility] 1.84.114 350.1.13.10 4.2.7.2.686 [id number] [facility] 2021-10-29 11:00:00 2021-10-29 11:00:00 Outpatient CHRISTAL WALLIS [facility] [id number] [facility] 2021-10-29 00:00:00 2021-10-29 00:00:00 Orders Only Doctor Unassigned, [place] [facility] 1..114 350.1.13.10 4.2.7.2.686 [id number] [facility] 2021-10-28 15:45:00 2021-10-28 15:45:00 Outpatient CHRISTAL WALLIS [facility] [id number] [facility] 2021-08-18 07:25:00 2021-08-18 10:08:00 Hospital Encounter Aman Rojas [facility] 1.2840.114 350.1.13.10 4.2.7.2.686 [id number] [facility] 2021-08-18 07:25:00 2021-08-18 10:08:00 Outpatient R AMAN ROJAS [facility] [id number] [facility] 2021-08-18 09:24:00 2021-08-18 10:01:00 Surgery Aman Rojas [facility] 1.2840.114 350.1.13.10 4.2.7.2.686 [id number] [facility] 2021-08-16 11:30:00 2021-08-16 11:30:00 Outpatient R AMAN ROJAS [facility] [id number] [facility] 2021-08-16 10:43:57 2021-08-16 10:58:57 Laboratory Only Only, Adc Test Aman Rojas [facility] 1.2840.114 350.1.13.10 4.2.7.2.686 [id number] [facility] 2021-08-16 00:00:00 2021-08-16 00:00:00 Orders Only Doctor Unassigned, [place] [facility] 1.2840.114 350.1.13.10 4.2.7.2.686 [id number] [facility] Results Test Description Test Time [...] becompatible with the history of a bursitis. [facility] Notes Date/Time Note Provider Source 2023-11-16 17:55:18 NdJz5tMkLQ9yv8WPzo2y /W161NchsiwtFe SzKiV3kHZaEwbyxbrrkLkvLadZIuUn8755 -12-28T17:55:18 Pt given printed and verbal discharge [...] with steady gait, in no apparent distress, 81119-0Bdqoukfra department OvkhJR7207-01-21N16:56:21[facility] NoteTXT1.2.840.544968.1.13.104.2.7 .2.501950|[id number] for patient mnsl04763-5GzqrJXJBRXUOEDRFbnymjxl d C-CDA narrative [id number] M Felix RN[address] RhozPlcszxuovJgddfxcsfIDUA77356058 92BFWCMMDNESVKLOMPQHIVFN5317-68-92 T17:56:211.2.840.866227.1.72.3.15| 1.2.840.552375.1.13.104.2.7.2.7278 [id number] Katie Ag RN [facility] 2023-11-16 16:40:47 Cv09aLY6PKW5E+gUxxOQ wSDbeHwI+ricen FEhP5LpNX0wi1n0fy9fcfAVF4FUbR88747 -12-28T16:40:47 LET applied to left elbow 94369-5Juwijfoqn department UvnnFM8611-49-33A08:41:00[facility] NoteTXT1.2.840.555616.1.13.104.2.7 .2.409397|[id number] for patient orna15529-3OrvuXNOYJTFSLITRzmlnxwp d C-CDA narrative text[address] AxrtG[id number] 48JDONYJWGIQGHZANBVAEFIS1968-73-99 T16:41:001.2.840.558897.1.72.3.15| 1.2.840.768966.1.13.104.2.7.2.7278 [id number] [facility] 2023-11-16 16:04:57 PmNte3Syt/H7CiQJVywZ A8qzeYUqrzz46Z EjteDjBZ3jUP8gVTn8CyeYVzf1MzA55723 -12-28T16:04:57 Diagnosed with bursitis today by [employer] [facility]. Sent by them to ER to "have it drained". 92304-8Oyyjuvstb department Triage bkqrYK0156-46-54Y62:06:01[facility] Triage noteTXT1.2.840.763218.1.13.104.2.7 .2.528142|[id number] for patient tihp61059-1Ialuwcrdf department NoteLNNARRATIVEFormatted C-CDA narrative [id number] Fief RN[address] Jv[id number] 38ZCTTMUYMIVKFHTZMTRGNLC2362-03-36 T16:06:011.2.840.563393.1.72.3.15| 1.2.840.446196.1.13.104.2.7.2.7278 [id number] Haven Alicea RN [facility]
[2024-01-17] MEDS ORDERED: ASPIRIN 81 MG CHEWABLE TABLET ONE (13:11)
--- NOTE | 2024-01-17 13:59 | RAD REPORT ---
EXAM DESCRIPTION: RAD - Chest Single View - 01/17/2024 1:52 pm CLINICAL HISTORY: CHEST PAIN Chest pain. COMPARISON: Chest Single View dated 11/12/2023; Chest Single View dated 10/08/2023; Chest Single Vie w dated 08/07/2023; Chest Single View dated 04/09/2023 FINDINGS: Portable technique limits examination quality. The lungs are grossly clear. The heart is normal in size. No displaced fractures. IMPRESSION: No acute intrathoracic process suspected.
[2024-01-17 14:09] LABS: Absolute Lymphocytes (CBC) 1.1 K/uL (0.7-4.9); Lymphocytes % 14.8 % (15.3-44.8); MPV 8.1 fL (7.6-11.3); Platelets 285 thou/uL (152-406); RBC Red Blood Cell Count 4.83 M/uL (4.33-5.43)
[2024-01-17 14:32] LABS: Albumin 3.5 g/dL (3.4-5.0); Bilirubin Direct 0.2 mg/dL (0-0.2); Bilirubin Indirect, Calculated 0.4 mg/dL (0.2-0.8); Bilirubin Total 0.6 mg/dL (0.2-1.0); Protein, Total 7.8 g/dL (6.4-8.2)
[2024-01-17 16:49] LABS: Magnesium 2.1 mg/dL (1.6-2.4); Potassium 3.5 mEq/L (3.5-5.1); Troponin High Sensitivity 9.5 pg/mL (<58.9)
--- NOTE | 2024-01-17 17:03 | EDPHYS ---
Physician Documentation [facility] Name: Grupo Mcdonald Jr Age: 63 yrs Sex: Male : 1960 Arrival Date: 01/17/2024 Time: 12:53 Bed 7 Private MD: Quirino Talbot ED Physician Albert Caputo HPI: 01/17 13:17 This 63 yrs old Male presents to ER via Ambulatory with complaints of Palpitations. kb 13:17 Patient is a 63-year-old male who presents for palpitations that started this morning kb with dizziness and chest tightness. States he woke up and checked his blood pressure and pulse that he does every morning and his pulse rate was 49. States his machine Bluetooth to his nurse so she called and recommended he recheck his blood pressure and pulse. States whenever he rechecked it it was 60, then 80 then went back down into the 40s. Reports dizziness happens when his pulse drops and worse when he is at rest. Denies shortness of breath. States he normally has pain in his chest because of radiated pain from the arthritis in his left shoulder but today it is more tightness which is different than normal.. Historical: - Allergies: 13:01 Codeine; iw 13:01 Vicodin; iw - Home Meds: 13:01 allopurinol 100 mg Oral tablet once [Active]; colchicine 0.6 mg Oral tablet once iw [Active]; hydralazine 10 mg Oral tablet 2 tabs once [Active]; hydralazine 50 mg Oral tablet 2 times per day [Active]; nifedipine 90 mg Oral tablet daily [Active]; Metformin Oral [Active]; - PMHx: 13:01 asbestosis; Cellulitis; Gout; Hypertension; lymphedema; Pre Diabetes; Psoriatic iw Arthritis; stroke; - PSHx: 13:01 Appendectomy; cataracts; heart cath; iw ROS: 13:16 Constitutional: Negative for fever, chills, and weight loss, kb 13:16 Cardiovascular: Positive for chest pain, palpitations, 13:16 Neuro: Positive for dizziness, 13:16 All other systems are negative, Exam: 13:16 Head/Face: Normocephalic, atraumatic. ENT: Moist Mucous membranes Cardiovascular: kb Regular rate Respiratory: Respirations even and unlabored. No increased work of breathing. Talking in full sentences Abdomen/GI: Soft, non-tender. No distention Skin: Warm, dry with normal turgor. Normal color. MS/ Extremity: Pulses equal, no cyanosis. Neurovascular intact. Full, normal range of motion. Neuro: Awake and alert, GCS 15, oriented to person, place, time, and situation. Moves all extremities. Normal gait. 13:21 Constitutional: The patient appears alert, awake, well developed, well hydrated, well kb groomed, well nourished, 13:21 ECG was reviewed by the Attending Physician. Vital Signs: 13:02 BP 150 / 80; Pulse 77; Resp 16; Temp 97.4; Pulse Ox 97% on R/A; iw 14:10 BP 145 / 104; Pulse 80; Resp 17; Pulse Ox 99% on R/A; ld1 14:55 Weight 181.44 kg; bd 15:09 BP 164 / 84; Pulse 75; Resp 18; Pulse Ox 100% on R/A; ld1 16:17 BP 163 / 80; Pulse 72; Resp 18; Pulse Ox 98% ; bp MDM: 12:56 Patient medically screened. kb 13:17 Data reviewed: vital signs, nurses notes. kb 13:17 Differential diagnosis: arrythmia, dehydration, acute MA, CAD, near syncope, kb electrolyte abnormality. 17:01 Consideration of Admission/Observation Patient was admitted/placed on observation. kb Escalation of care including admission/observation considered. Management of patient was discussed with the following: Hospitalist: Hospitalist team, pt accepted for admission under Dr Coffman. Counseling: I had a detailed discussion with the patient and/or guardian regarding the historical points, exam findings, and any diagnostic results supporting the discharge/admit diagnosis, lab results, radiology results, the need for further work-up and treatment in the hospital. 01/17 13:04 Order name: Basic Metabolic Panel; Complete Time: 16:50 kb 01/17 13:04 Order name: CBC with Diff; Complete Time: 14:21 kb 01/17 13:04 Order name: Magnesium; Complete Time: 16:50 kb 01/17 13:04 Order name: Troponin HS; Complete Time: 16:50 kb 01/17 13:15 Order name: Hepatic Function; Complete Time: 14:34 kb 01/17 13:15 Order name: Protime (+inr); Complete Time: 18:31 kb 01/17 13:15 Order name: Ptt, Activated; Complete Time: 18:31 kb 01/17 18:32 Order name: C-Reactive Protein EDMS 01/17 18:32 Order name: C-Reactive Protein EDSD 01/17 18:32 Order name: CBC with Automated Diff EDMS 01/17 18:32 Order name: CBC with Automated Diff EDMS 01/17 18:32 Order name: Comprehensive Metabolic Panel EDMS 01/17 18:32 Order name: Comprehensive Metabolic Panel EDMS 01/17 18:32 Order name: Lipid Profile EDMS 01/17 18:32 Order name: Lipid Profile EDMS 01/17 18:32 Order name: Magnesium EDMS 01/17 18:32 Order name: Magnesium EDMS 01/17 18:32 Order name: NT PRO-BNP EDSD 01/17 18:32 Order name: NT PRO-BNP EDMS 01/17 18:32 Order name: Phosphorus EDSD 01/17 18:32 Order name: Phosphorus EDSD 01/17 18:32 Order name: Troponin High Sensitivity EDSD 01/17 18:32 Order name: Troponin High Sensitivity EDSD 01/17 18:32 Order name: Troponin High Sensitivity EDSD 01/17 13:04 Order name: XRAY Chest (1 view); Complete Time: 14:00 kb 01/17 18:32 Order name: Echo with Doppler EDSD 01/17 13:04 Order name: EKG; Complete Time: 13:04 kb 01/17 18:32 Order name: CONS Physician Consult EDSD 01/17 13:04 Order name: Cardiac monitoring; Complete Time: 13:26 kb 01/17 13:04 Order name: EKG - Nurse/Tech; Complete Time: 13:26 kb 01/17 13:04 Order name: IV Saline Lock; Complete Time: 13:45 kb 01/17 13:04 Order name: Labs collected and sent; Complete Time: 13:45 kb 01/17 13:04 Order name: O2 Per Protocol; Complete Time: 13:26 kb 01/17 13:04 Order name: O2 Sat Monitoring; Complete Time: 13:26 kb EC:21 Rate is 82 beats/min. Rhythm is regular. QRS Orange is Normal. RI interval is prolonged kb at 328 msec. QRS interval is normal at 164 msec. QT interval is normal at 469 msec. Administered Medications: 13:26 Drug: Aspirin PO Chewable Tablet 324 mg PO once; 81 mg tablets x 4 Route: PO; bp Disposition Summary: 01/17/24 17:02 Hospitalization Ordered Notes: Hospitalization Status: Observation kb Provider: Issac Coffman Condition: Stable kb Problem: new kb Symptoms: are unchanged kb Bed/Room Type: Standard Location: Telemetry/MedSurg (observation)(01/17/24 19:38) rv1 Room Assignment: 204(01/17/24 19:38) rv1 Diagnosis - Dizziness and giddiness kb - Palpitations kb - Chest pain, unspecified kb - Bradycardia, unspecified kb Forms: - Medication Reconciliation Form kb - SBAR form kb - Leadership Thank You Letter kb Addendum: 01/19/2024 08:41 Co-signature as Attending Physician, Albert Caputo MD I reviewed the patient's care r n provided by the Advanced Practice Provider and agree with the diagnosis and treatment plan. Signatures: Dispatcher [employer] Marichuy Plummer, DANIELLE-C RESIDENTIAL PROGRAM MANAGER-CkGhislaine Gudino, RN Albert Marino MD MD rn Peltier, Brian, RN RN bp Villegas, Rebecca rv1 Corrections: (The following items were deleted from the chart) 01/17 13:23 13:16 Constitutional: This is a well developed, well nourished patient who is awake, kb alert, and in no acute distress. Head/Face: Normocephalic, atraumatic. ENT: Moist Mucous membranes Cardiovascular: Regular rate Respiratory: Respirations even and unlabored. No increased work of breathing. Talking in full sentences Abdomen/GI: Soft, non-tender. No distention Skin: Warm, dry with normal turgor. Normal color. MS/ Extremity: Pulses equal, no cyanosis. Neurovascular intact. Full, normal range of motion. Neuro: Awake and alert, GCS 15, oriented to person, place, time, and situation. Moves all extremities. Normal gait. kb 18:43 17:02 Telemetry/MedSurg (observation) kb bp 18:43 17:02 kb bp 19:38 18:43 [facility] ER HOLD bp rv1 19:38 18:43 ERHOLD- bp rv1
--- NOTE | 2024-01-17 17:03 | ER ---
Nurse's Notes [facility] Name: Grupo Mcdonald Jr Age: 63 yrs Sex: Male : 1960 Arrival Date: 01/17/2024 Time: 12:53 Bed 7 Private MD: Quirino Talbot Diagnosis: Dizziness and giddiness;Palpitations;Chest pain, unspecified;Bradycardia, unspecified Presentation: 01/17 13:02 Chief complaint: Patient states: dizziness, light headed since this morning, his pulse iw was low and was told to come to ER for evaluation. Onset of symptoms was January 17, 2024. 13:02 Method Of Arrival: Ambulatory iw 13:02 Acuity: MARTY 2 iw 13:11 Acuity: MARTY 2 iw Triage Assessment: 13:05 General: Appears distressed, obese, Behavior is calm, cooperative, appropriate for age. bp Pain: Denies pain. Historical: - Allergies: 13:01 Codeine; iw 13:01 Vicodin; iw - Home Meds: 13:01 allopurinol 100 mg Oral tablet once [Active]; colchicine 0.6 mg Oral tablet once iw [Active]; hydralazine 10 mg Oral tablet 2 tabs once [Active]; hydralazine 50 mg Oral tablet 2 times per day [Active]; nifedipine 90 mg Oral tablet daily [Active]; Metformin Oral [Active]; - PMHx: 13:01 asbestosis; Cellulitis; Gout; Hypertension; lymphedema; Pre Diabetes; Psoriatic iw Arthritis; stroke; - PSHx: 13:01 Appendectomy; cataracts; heart cath; iw Screenin:10 [facility] ED Fall Risk Assessment (Adult) History of falling in the last 3 months, bp including since admission No falls in past 3 months (0 pts). Abuse screen: Denies threats or abuse. Denies injuries from another. Nutritional screening: No deficits noted. Tuberculosis screening: No symptoms or risk factors identified. Assessment: 13:08 Reassessment: attempted to move pt into wheelchair from triage room, pt became light iw headed and dizzy, HR was noted to be 39 bpm on pulse ox monitor, HR up to 88 after approx 30 seconds, moved to ER room 3. 16:18 Reassessment: No changes from previously documented assessment. Patient is alert, bp oriented x 3, equal unlabored respirations, skin warm/dry/pink. Vital Signs: 13:02 BP 150 / 80; Pulse 77; Resp 16; Temp 97.4; Pulse Ox 97% on R/A; iw 14:10 BP 145 / 104; Pulse 80; Resp 17; Pulse Ox 99% on R/A; ld1 14:55 Weight 181.44 kg; bd 15:09 BP 164 / 84; Pulse 75; Resp 18; Pulse Ox 100% on R/A; ld1 16:17 BP 163 / 80; Pulse 72; Resp 18; Pulse Ox 98% ; bp ED Course: 12:53 Patient arrived in ED. rg4 12:53 Quirino Talbot MD is Private Physician. rg4 12:56 Marichuy Ragland [facility]-C [facility] kb 12:56 Albert Caputo MD is Attending Physician. kb 13:10 Jose Joseph, RN is Primary Nurse. bp 13:11 Triage completed. iw 13:15 Arm band placed on. iw 13:45 Inserted saline lock: 20 gauge in right upper arm, using aseptic technique. Blood ld1 collected. 13:54 XRAY Chest (1 view) In Process Unspecified. EDMS 14:10 Patient has correct armband on for positive identification. bp 14:11 bariatric bed ordered confirmation # [id number]. bd 17:02 Issac Coffman MD is Hospitalizing Provider. kb 18:03 bariatric bed delivered to ER. bd Administered Medications: 13:26 Drug: Aspirin PO Chewable Tablet 324 mg PO once; 81 mg tablets x 4 Route: PO; bp Outcome: 17:02 Decision to Hospitalize by Provider. kb 20:48 Patient left the ED. bp Signatures: Dispatcher [employer] EDMS Marichuy Ragland FNP-C FNP-Elen Aguiar bd Ghislaine Stock, RN DIANA iw Tori Mejia rg4 Jose Joseph, RN RN bp Janice Virk RN RN ld1
--- NOTE | 2024-01-17 18:33 | P.HP ---
Certification for Inpatient Patient admitted to: Inpatient With expected LOS: >2 Midnights Patient will require the following post-hospital care: None Practitioner: I am a practitioner with admitting privileges, knowledge of patient current condition, hospital course, and medical plan of care. Services: Services provided to patient in accordance with Admission requirements found in Title 42 Section 412.3 of the Code of Federal Regulations Patient History Date of Service: 01/17/24 Reason for admission: Bradycardia History of Present Illness: Patient is a 63-year-old gentleman who came to the hospital with an episode of bradycardia. Patient states his heart rate went down into the 50s today. When patient came into the emergency room patient's heart rate was in the 40s. Patient states that he never had any issues with this. Patient has never had thyroid studies. Patient also states he recently had his nifedipine increased. However, this is never given him any problems before. At this time, patient will be admitted to the hospital for monitoring on telemetry. Patient may have obstructive sleep apnea and he does not have a CPAP. He may need to start using the CPAP. Will admit will admit him to the hospital for further evaluation. Allergies codeine Allergy (Verified 11/12/23 21:47) heart racing hydrocodone [From Vicodin] Allergy (Verified 11/12/23 21:47) heart racing acetaminophen [From Vicodin] Adverse Reaction (Intermediate, Verified 11/12/23 21:47) heart racing Home Medications: Olmesartan/Hydrochlorothiazide [Olmesartan-Hctz 40-25 mg Tab] 1 tab PO DAILY 02/14/23 Allopurinol 300 mg PO DAILY 04/08/23 Aspirin Chewable [Aspirin Chewable*] 81 mg PO BEDTIME 11/12/23 NIFEdipine [Nifedipine ER] 60 mg PO BEDTIME 11/12/23 Potassium Chloride 20 meq PO DAILY 11/12/23 - Past Medical/Surgical History Diabetic: No -: HTN -: Chronic lymphedema -: Morbid obesity -: History of asbestosis exposure -: History of CVA -: Gout -: Psoriatic arthritis -: Osteoarthritis -: Diverticulosis -: pre diabetic -: appendectomy -: carpaltunnel surg in L hand -: L knee "clean up" -: vein procedure in Both legs -: Cataract Sx Psychosocial/ Personal History: Patient lives with son. He is a - Family History Mother Medical History: Heart disease, Hypertension Father Medical History: Cancer Notes: lung cancer - Social History Alcohol use: No CD- Drugs: No Caffeine use: Yes Review of Systems 10-point ROS is otherwise unremarkable Physical Examination - Vital Signs Temperature: 98 F Blood Pressure: 140/80 Pulse: 80 Respirations: 18 Pulse Ox (%): 95 - Physical Exam General: Alert, In no apparent distress, Oriented x3, Obese HEENT: Atraumatic, PERRLA, Mucous membr. moist/pink, EOMI, Sclerae nonicteric Neck: Supple, 2+ carotid pulse no bruit, No LAD, Without JVD or thyroid abnormality Respiratory: Clear to auscultation bilaterally, Normal air movement Cardiovascular: Regular rate/rhythm, Normal S1 S2, No murmurs Gastrointestinal: Normal bowel sounds, Soft and benign, Non-distended, No tenderness Musculoskeletal: No clubbing, No swelling, No tenderness Integumentary: No rashes Neurological: Normal gait, Normal speech, Normal strength at 5/5 x4 extr, Normal tone, Sensation intact, Cranial nerves 3-12 intact, Normal affect Lymphatics: No axilla or inguinal lymphadenopathy - Studies Laboratory Data (last 24 hrs) 01/17/24 01/17/24 01/17/24 13:50 13:50 13:50 WBC 7.40 Hgb 14.9 Hct 44.0 Plt Count 285 PT 11.9 INR 1.00 APTT 25.9 Sodium Potassium BUN Creatinine Glucose Magnesium Total Bilirubin 0.6 AST 11 L ALT 22 Alkaline Phosphatase 85 01/17/24 13:50 WBC Hgb Hct Plt Count PT INR APTT Sodium 137 Potassium 3.5 BUN 32 H Creatinine 1.30 Glucose 109 H Magnesium 2.1 Total Bilirubin AST ALT Alkaline Phosphatase Assessment & Plan - Problems (Diagnosis) (1) Bradycardia Current Visit: Yes Status: Acute (2) Hypertensive urgency Current Visit: No Status: Acute (3) Gout Current Visit: No Status: Chronic Qualifiers: Gout site: multiple sites Gout etiology: unspecified cause (4) HTN (hypertension) Current Visit: No Status: Chronic Qualifiers: Hypertension type: primary hypertension Qualified Code(s): I10 - Essential (primary) hypertension (5) History of CVA (cerebrovascular accident) Current Visit: No Status: Chronic (6) Morbid (severe) obesity due to excess calories Current Visit: No Status: Chronic - Plan Plan: 1. Continue with thyroid studies 2. Monitor on telemetry 3. Hold nifedipine 4. Adjust blood pressure medications 5. Strict blood pressure and blood sugar control 6. Diet and exercise regimen needs to be implemented 7. Outpatient sleep study/patient probably needs sleep apnea addressed 8. GI DVT prophylaxis Discharge Plan: Home Plan to discharge in: 24 Hours - Advance Directives Does patient have a Living Will: No Does patient have a Durable POA for Healthcare: No - Code Status/Comfort Care Code Status Assessed: Yes Code Status: Full Code Critical Care: No Time Spent Managing PTS Care (In Minutes): 45
[2024-01-17] MEDS: IPRATROPIUM BROM 0.5MG/2.5ML NEB SCH (21:00)
[2024-01-17] MEDS: ALBUTEROL 2.5 MG/3 ML NEB SOL NEB SCH (21:00)
[2024-01-17] MEDS: METOPROLOL TAR 25 MG TAB PO SCH (22:32)
[2024-01-17] MEDS: POTASSIUM 25 MEQ EFFERV TAB PO SCH (22:32)
[2024-01-17] MEDS: ENOXAPARIN 40 MG/0.4 ML SQ SCH (22:32)
[2024-01-17] MEDS: NA CHLORIDE 0.9% 1,000 ML IV SCH (22:40)
[2024-01-18 00:25] VITALS: BMI 53.0
[2024-01-18 02:45] VITALS: O2SAT 97
[2024-01-18 06:17] LABS: Absolute Lymphocytes (CBC) 1.4 K/uL (0.7-4.9); Hematocrit 42.6 % (39.6-49.0); Lymphocytes % 23.6 % (15.3-44.8); MCV 91.7 fL (80-100); MPV 7.8 fL (7.6-11.3); Platelets 272 thou/uL (152-406); RBC Red Blood Cell Count 4.65 M/uL (4.33-5.43)
[2024-01-18 06:37] LABS: ALT/SGPT 23 U/L (16-61); AST/SGOT 5 U/L (15-37); Albumin 3.5 g/dL (3.4-5.0); Alkaline Phosphatase 75 U/L (45-117); BUN Blood Urea Nitrogen 22 mg/dL (7-18); Bicarbonate 29 mEq/L (21-32); Bilirubin Total 0.8 mg/dL (0.2-1.0); Glomerular Filtration Rate 87 ml/min (=/>90); Glucose Level 95 mg/dL (74-106); HDL Cholesterol 45 mg/dL (40-60); LDL Cholesterol, Calculated 90 mg/dL (<130); Magnesium 2.2 mg/dL (1.6-2.4); NT PRO-BNP 63 pg/mL (<125); Phosphorus 3.7 mg/dL (2.5-4.9); Potassium 3.8 mEq/L (3.5-5.1); Protein, Total 7.2 g/dL (6.4-8.2); Sodium Level 139 mEq/L (136-145); Troponin High Sensitivity 10.2 pg/mL (<58.9)
[2024-01-18 06:40] LABS: C-Reactive Protein < 2.90 mg/L (<3.00)
[2024-01-18] MEDS: ONDANSETRON 4 MG/2 ML VIAL IV PRN (08:22)
[2024-01-18] MEDS: ACETAMINOPHEN 500 MG TAB PO PRN (08:24)
[2024-01-18] MEDS: ASPIRIN EC 81 MG TAB PO SCH (08:26)
[2024-01-18] MEDS: CLOPIDOGREL 75 MG TABLET PO SCH (08:26)
[2024-01-18] MEDS: FUROSEMIDE 40 MG/4 ML VIAL IV SCH (08:27)
[2024-01-18 12:17] LABS: Thyroid Stimulating Hormone 2.71 uIU/mL (0.358-3.740)
--- NOTE | 2024-01-18 13:27 | P.CNS ---
Date of Consult: 01/18/24 Chief Complaint: Bradycardia History of Present Illness: patient with PMH of HTN, presented with dizziness, found that his HR was low, denies any other cardiac symptoms, patient had a recent sress test, angiogram and 7 days event monitor that were inconclusive, patient most likely got sleep apnea. Allergies codeine Allergy (Verified 11/12/23 21:47) heart racing hydrocodone [From Vicodin] Allergy (Verified 11/12/23 21:47) heart racing acetaminophen [From Vicodin] Adverse Reaction (Intermediate, Verified 11/12/23 21:47) heart racing Home Medications: Olmesartan/Hydrochlorothiazide [Olmesartan-Hctz 40-25 mg Tab] 1 tab PO DAILY 02/14/23 Allopurinol 300 mg PO DAILY 04/08/23 Aspirin Chewable [Aspirin Chewable*] 81 mg PO BEDTIME 11/12/23 NIFEdipine [Nifedipine ER] 60 mg PO BEDTIME 11/12/23 Potassium Chloride 20 meq PO DAILY 11/12/23 - Past Medical/Surgical History Diabetic: No -: HTN -: Chronic lymphedema -: Morbid obesity -: History of asbestosis exposure -: History of CVA -: Gout -: Psoriatic arthritis -: Osteoarthritis -: Diverticulosis -: pre diabetic -: appendectomy -: carpaltunnel surg in L hand -: L knee "clean up" -: vein procedure in Both legs -: Cataract Sx Psychosocial/ Personal History: Patient lives with son. He is a - Family History Mother Medical History: Heart disease, Hypertension Father Medical History: Cancer Notes: lung cancer - Social History Smoking Status: Unknown if ever smoked Alcohol use: No CD- Drugs: No Caffeine use: Yes Place of Residence: Home Review of Systems 10-point ROS is otherwise unremarkable Physical Examination Temp Pulse Resp BP Pulse Ox 98 F 80 18 140/80 95 01/18/24 09:38 01/18/24 09:38 01/18/24 09:38 01/18/24 09:38 01/18/24 09:38 General: Alert HEENT: Atraumatic Neck: Supple Respiratory: Clear to auscultation bilaterally Cardiovascular: No edema, Normal S1 S2 Gastrointestinal: Normal bowel sounds Laboratory Data (last 24 hrs) 01/17/24 01/17/24 01/17/24 13:50 13:50 13:50 WBC 7.40 Hgb 14.9 Hct 44.0 Plt Count 285 PT 11.9 INR 1.00 APTT 25.9 Sodium Potassium BUN Creatinine Glucose Magnesium Total Bilirubin 0.6 AST 11 L ALT 22 Alkaline Phosphatase 85 01/17/24 13:50 WBC Hgb Hct Plt Count PT INR APTT Sodium 137 Potassium 3.5 BUN 32 H Creatinine 1.30 Glucose 109 H Magnesium 2.1 Total Bilirubin AST ALT Alkaline Phosphatase - Problems (1) Bradycardia Current Visit: Yes Status: Acute Plan: Continue to hold Nifedpine and any AV meng blocking agents as outpatient. will refer patient to EP cardiology to consider ILR can continue olesartan/HCTZ for BP control patient will need referral to pulmonary to consider sleep study.
[2024-01-18 14:12] VITALS: BP 137/71; TEMP 96.9
--- NOTE | 2024-01-18 15:25 | EKG ---
Test Date: 2024-01-17 Test Time: 13:16:01 [employer] Person: RONNIE MEASUREMENT RESULTS: Intervals: Rate: 82 WA: 328 QRSD: 164 QT: 402 QTc: 469 [employer]: P: 44 WA: 328 QRS: -50 T: 24 INTERPRETIVE STATEMENTS: Sinus rhythm with 1st degree AV block with frequent premature ventricular complexes Right bundle branch block Left anterior fascicular block Bifascicular block Abnormal ECG Compared to ECG 11/21/2023 10:42:49 Ventricular premature complex(es) now present Left anterior fascicular block now present Bifascicular block now present Electronically Signed On 01-18-24 15:23:46 [employer] by Omer Yan
[2024-01-18] MEDS ORDERED: ASPIRIN 81 MG CHEWABLE TABLET PO SCH (21:00)
[2024-01-19] MEDS ORDERED: hydroCHLOROthiazide 25 MG TAB PO SCH (09:00)
[2024-01-19] MEDS ORDERED: HOME MED 1 EA UNK (Olmesartan/Hydrochlorothiazide [Olmesartan-Hctz 40-25 Mg Tab] Tablet) PO SCH (09:00)
[2024-01-19] MEDS ORDERED: VALSARTAN 160 MG TAB PO SCH (09:00)
[2024-01-19] MEDS ORDERED: POTASSIUM CL SA 10 MEQ TAB PO SCH (09:00)
[2024-01-19] MEDS ORDERED: allopurinoL 300 MG TAB PO SCH (09:00)
== END 2024-01-18 15:54 | disposition home or self-care (01) ==
LOC: ER 12:53 → ERHOLD 18:23 → 2ND 20:25
PROVIDERS: ADMIT Hospitalist; ATTEND Hospitalist
DX: R00.1 Bradycardia, unspecified (principal); I16.0 Hypertensive urgency; M10.9 Gout, unspecified; I10 Essential (primary) hypertension; E66.01 Morbid (severe) obesity due to excess calories; Z68.43 Body mass index [BMI] 50.0-59.9, adult; Z86.73 Personal history of transient ischemic attack (TIA), and cerebral infarction without residual deficits; Z88.5 Allergy status to narcotic agent; Z88.6 Allergy status to analgesic agent
CPT/HCPCS: 36415; 71045; 80048; 80053; 80061; 80076; 83735; 83880; 84100; 84439; 84443; 84484; 85025; 85610; 85730; 86140; 93005; 94640; 99283; G0378; J1650; J1940; J2405; J7030; J7613; J7644

== ENCOUNTER 2024-03-12 12:05 | Emergency (ER) | payer OTHER ==
--- OUTSIDE RECORDS SUMMARY | 2024-03-12 12:08 | XMS REPORT | Continuity of Care Document ---
Author Name Unknown Address [address] [facility] [place] [address] [facility] thconnect Address [address] [facility] [address] [place] [address] Care Team Providers Care Boom Cat Operator Name Role Phone RADHA QUIRINO Moraes Primary Care Physician Unavailab Casey Gonzales V Attending Clinician Unavailable BRENNA MANZANO Attending Clinician Unavailable STACIE MOSS Attending Clinician Stacie Young MD Attending Clinician + LILIANE GALICIA Attending Clinician Unavailable Liliane Galicia MD Attending Clinician [phone] Doctor Unassigned, [place] Attending Clinician U Christal Brar MD Attending Clinician +- [phone] CHRISTAL JOSHUA Attending Clinician Lisa cruz Only, Adc Test Attending Clinician Unavailable Pob, Adc Lab Main Attending Clinician UnavailAman Malhotra MD Attending Clinician +- [phone] AMAN ARDON Attending Clinician Lisa cruz Physician, No Primary or Family Admitting Clinic carola Unavailable BRENNA MANZANO Admitting Clinician Unavailable STACIE MOSS Admitting Clinician LILIANE Morrell Admitting Clinician Christal Kelly MD Admitting Clinician [phone] CHRISTAL JOSHUA Admitting Clinician Aman Lucas MD Admitting Clinician [phone] AMAN ARDON Admitting Clinician Lisa cruz Payers Payer Name Policy Type Policy Number Effective Date Expirati on Date Source [employer] MED[employer]VANTAGE [id number] 2021 00:00:00 Problems Condition Name Condition Details Condition Category Status Onset Date Resolution Date Last Treatment Date Treating Clinician Comments Source Acute bursitis Acute bursitis Disease Active 2022-11 00:00: 00 [facility] Body mass index (BMI) 60.0-69.9, adult Body mass index (BMI) 60.0-69.9, adult Disease Active 2022-11 00:00: 00 [facility] Abdominal pain of unknown etiology Abdominal pain of unknown etiology Disease Active 8-31 00:00: 00 [facility] Candidal intertrigo Candidal intertrigo Disease Active 5-17 00:00: 00 [facility] 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 Disease Active 5-17 00:00: 00 [facility] Diabetes mellitus Diabetes mellitus Disease Active 5-05 00:00: 00 [facility] Psoriatic arthritis Psoriatic arthritis Disease Active 2021-11 1-15 00:00: 00 [facility] Acute serous otitis media of right ear Acute serous otitis media of right ear Disease Active 4-26 00:00: 00 [facility] Bronchitis Bronchitis Disease Active 2019-11 00:00: 00 [facility] Cellulitis of left lower limb Cellulitis of left lower limb Disease Active 2019-11 00:00: 00 [facility] Hyperchole sterolemia Hyperchole sterolemia Disease Active 2019-11 00:00: 00 [facility] Chronic low back pain Chronic low back pain Disease Active 04-17 00:00: 00 [facility] Gastroesop hageal reflux disease Gastroesop hageal reflux disease Disease Active 04-17 00:00: 00 [facility] Hypertensi on Hypertensi on Disease Active 04-17 00:00: 00 [facility] Dyslipidem ia Dyslipidem ia Disease Active 03-25 00:00: 00 [facility] History of cerebrovas cular accident History of cerebrovas cular accident Disease Active 03-25 00:00: 00 [facility] Varicose veins of unspecifie d lower extremity with ulcer other part of lower leg (CODE) Varicose veins of unspecifie d lower extremity with ulcer other part of lower leg (CODE) Disease Active 08-05 00:00: 00 [facility] Allergies, Adverse Reactions, Alerts Allergy Name Allergy Type Status Severity Reaction(s) Onset Date Inactive Date Treating Clinician Comments Source No Known Allergie s DA Active U 02-05 00:00: 00 [facility] Hydrocod one-Acet aminophe n Propensi ty to adverse reaction s Active Unknown - See comments 08-16 00:00: 00 Adrianfernandez [facility] HYDROCOD ONE-ACET AMINOPHE N DRUG Active Unknown-Cmnt 08-16 00:00: 00 [facility] Codeine Propensi ty to adverse reaction s to drug Active Nausea and/or Vomiting 2014-11 00:00: 00 [facility] CODEINE DRUG INGREDI Active Med N/V 2014-11 00:00: 00 [facility] Social History Social Habit Start Date Stop Date Quantity Comments Source Exposure to SARS-CoV-2 (event) Not sure [facility] intake 2023-11-16 00:00:00 2023-11-16 00:00:00 Current non-drinker of alcohol (finding) [facility] History of Social function 2021-11-04 00:00:00 2021-11-04 00:00:00 [facility] Tobacco use and exposure 2015-09-08 00:00:00 2015-09-08 00:00:00 Smokeless tobacco non-user [facility] Sex Assigned At 1960 00:00:00 1960 00:00:00 [facility] Smoking Status Start Date Stop Date Source Never smoked tobacco [facility] Medications Ordered Medication Name Filled Medication Name Start Date Stop Date Current Medication? Ordering Clinician Indication Dosage Frequency Signature (SIG) Comments Components Source indomethaci n (INDOCIN) capsule 50 mg 2022-11 00:00: 00 11-16 23:17 :00 No 50mg 50 mg, Oral, ONCE, 1 dose, On Mariajose 11/16/23 at 1800, Routine [facility] indomethaci n 50 mg capsule 2022-11 00:00: 00 Yes [id number] 50mg Take 1 capsule by mouth 3 (three) times daily as needed for Pain for up to 15 doses. [facility] vancomycin (VANCOCIN) 1,500 mg in NaCl [...] Tissue
Duration of Therapy: Other (see Comments) [facility] clindamycin 150 mg capsule 08-19 00:00: 00 08-30 04:59 :00 No [id number] 450mg Take 3 capsules by mouth 4 (four) times daily for 10 days. [facility] iopamidol (ISOVUE 370-500 mL) injection 100 mL 08-14 19:00: 00 08-14 18:10 :00 No [id number] 100mL 100 mL, Intravenou s, ONCE, 1 dose, On 08/14/23 at 1400, Routine [facility] water for irrigation irrigation solution 2020-11 15:49: 00 11-04 19:36 :50 No PRN, Starting on Mariajose 11/04/21 at 0949, Until Mariajose 11/04/21 at 1336, Routine, Intra-op [facility] neomycin-po lymyxin-dex amethasone (MAXITROL) 3.5 mg/g-10,000 unit/g-0.1 % ophthalmic ointment 2020-11 15:49: 00 11-04 19:36 :50 No PRN, Starting on Mariajose 11/04/21 at 0949, Until Mariajose 11/04/21 at 1336, Routine, Intra-op [facility] gentamicin injection 2020-11 15:49: 00 11-04 19:36 :50 No PRN, Starting on Mariajose 11/04/21 at 0949, Until Mariajose 11/04/21 at 1336, AGUILA, Intra-op [facility] DUOVISC (DUOVISC VISCO ELASTIC) 3 %-4 %(0.5 mL) 1 % (0.55 mL) intraocular injection 2020-11 15:48: 00 11-04 19:36 :50 No PRN, Starting on Mariajose 11/04/21 at 0948, Until Mariajose 11/04/21 at 1336, Routine, Intra-op [facility] dexamethaso ne (DECADRON PHOSPHATE) injection 2020-11 15:48: 00 11-04 19:36 :50 No PRN, Starting on Mariajose 11/04/21 at 0948, Until Mariajose 11/04/21 at 1336, Routine, Intra-op [facility] NaCl 0.9% (NS) injection 2020-11 15:48: 00 11-04 19:36 :50 No PRN, Starting on Mariajose 11/04/21 at 0948, Until Mariajose 11/04/21 at 1336, Routine, Intra-op [facility] ceFAZolin (ANCEF) injection 2020-11 15:47: 00 11-04 19:36 :50 No PRN, Starting on Mariajose 11/04/21 at 0947, Until Mariajose 11/04/21 at 1336, AGUILA, Intra-op [facility] tetracaine (PONTOCAINE ) 0.5 % ophthalmic drops [...] Mariajose 11/04/21 at 0900, Routine, DSU Pre-op [facility] aspirin 81 mg EC tablet 2020-11 11:31: 49 Yes 81mg Take 81 mg by mouth daily. [facility] lisinopril (PRINIVIL,Z ESTRIL) 20 mg tablet 2020-11 11:31: 49 Yes 20mg Take 20 mg by mouth 2 (two) times daily. [facility] verapamil (ISOPTIN) 120 mg tablet 2020-11 11:31: 49 Yes 120mg Take 120 mg by mouth 2 (two) times daily. [facility] ALBUTEROL INHALE 2020-11 11:31: 49 Yes Inhale. [facility] simethicone (GAS RELIEF (SIMETHICON E)) 40 mg/0.6 mL drops 08-18 14:10: 00 08-18 17:12 :34 No PRN, Starting on Mon08/18/21 at 0910, Until Mon08/18/21 at 1212, Routine, Intra-op [facility] lactated ringers IV infusion 1,000 mL 08-18 13:15: 00 08-18 13:02 :00 No 1000mL at 42 mL/hr, 1,000 mL, IV Infusion, ONCE, 1 dose, On Mon08/18/21 at 0815, Routine, DSU Pre-op [facility] aspirin 81 mg EC tablet 08-18 10:12: 34 Yes 81mg Take 81 mg by mouth daily. [facility] lisinopril (PRINIVIL,Z ESTRIL) 20 mg tablet 08-18 10:12: 34 Yes 20mg Take 20 mg by mouth 2 (two) times daily. [facility] verapamil (ISOPTIN) 120 mg tablet 08-18 10:12: 34 Yes 120mg Take 120 mg by mouth 2 (two) times daily. [facility] aspirin 81 mg EC tablet 2014-11 10:44: 23 Yes 81mg Take 81 mg by mouth daily. [facility] lisinopril (PRINIVIL,Z ESTRIL) 20 mg tablet 2014-11 10:44: 23 Yes 20mg Take 20 mg by mouth 2 (two) times daily. [facility] verapamil (ISOPTIN) 120 mg tablet 2014-11 10:44: 23 Yes 120mg Take 120 mg by mouth 2 (two) times daily. [facility] Vital Signs Vital Name Observation Time Observation Value Comments S ource Systolic blood pressure 2023-11-16 22:06:00 134 mm[Hg] [facility] Diastolic blood pressure 2023-11-16 22:06:00 94 mm[Hg] [facility] acute hospital Heart rate 2023-11-16 22:06:00 81 /min [facility] Body temperature 2023-11-16 22:06:00 37 [place] [facility] Respiratory rate 2023-11-16 22:06:00 18 /min [facility] Body height 2023-11-16 22:06:00 182.9 cm [facility] Body weight 2023-11-16 22:06:00 184.614 kg [facility] BMI 2023-11-16 22:06:00 55.20 kg/m2 [facility] Oxygen saturation in Arterial blood by Pulse oximetry 2023-11-16 22:06:00 99 /min [facility] acute hospital Systolic blood pressure 2023-08-20 00:00:00 141 mm[Hg] [facility] acute hospital Diastolic blood pressure 2023-08-20 00:00:00 69 mm[Hg] [facility] acute hospital Heart rate 2023-08-20 00:00:00 76 /min [facility] Respiratory rate 2023-08-20 00:00:00 16 /min [facility] Oxygen saturation in Arterial blood by Pulse oximetry 2023-08-20 00:00:00 99 /min [facility] acute hospital Body temperature 2023-08-19 18:43:00 37.22 [facility] Body height 2023-08-19 18:43:[address] [facility] Body weight 2023-08-19 18:43:[address] [facility] BMI 2023-08-19 18:43:00 55.40 kg/m2 [facility] Systolic blood pressure 2021-11-04 16:37:00 146 mm[Hg] [facility] acute hospital Diastolic blood pressure 2021-11-04 16:37:00 69 mm[Hg] [facility] acute hospital Oxygen saturation in Arterial blood by Pulse oximetry 2021-11-04 16:37:00 99 /min [facility] acute hospital Heart rate 2021-11-04 16:30:00 71 /min [facility] Respiratory rate 2021-11-04 16:30:00 24 /min [facility] Body temperature 2021-11-04 16:11:00 36.89 [facility] Body height 2021-10-26 14:41:[address] [facility] Body weight 2021-10-26 14:41:00 204.1 kg [facility] BMI 2021-10-26 14:41:00 61.01 kg/m2 [facility] Systolic blood pressure 2021-11-04 16:37:00 146 mm[Hg] General acute hospital Diastolic blood pressure 2021-11-04 16:37:00 69 mm[Hg] [facility] acute hospital Oxygen saturation in Arterial blood by Pulse oximetry 2021-11-04 16:37:00 99 /min [facility] acute hospital Heart rate 2021-11-04 16:30:00 71 /min [facility] Respiratory rate 2021-11-04 16:30:00 24 /min [facility] Body temperature 2021-11-04 16:11:00 36.89 [place] [facility] Body height 2021-10-26 14:41:[address] [facility] Body weight 2021-10-26 14:41:00 204.1 kg [facility] BMI 2021-10-26 14:41:00 61.01 kg/m2 [facility] Systolic blood pressure 2021-08-18 15:00:00 158 mm[Hg] General acute hospital Diastolic blood pressure 2021-08-18 15:00:00 90 mm[Hg] General acute hospital Heart rate 2021-08-18 15:00:00 75 /min [facility] Respiratory rate 2021-08-18 15:00:00 20 /min [facility] Oxygen saturation in Arterial blood by Pulse oximetry 2021-08-18 15:00:00 100 /min [facility] acute hospital Body temperature 2021-08-18 14:35:00 37.33 [facility] Body height 2021-08-16 14:15:00 182.9 cm [facility] Body weight 2021-08-16 14:15:00 204.119 kg [facility] BMI 2021-08-16 14:15:00 61.03 kg/m2 [facility] Systolic blood pressure 2021-08-18 15:00:00 158 mm[Hg] General acute hospital Diastolic blood pressure 2021-08-18 15:00:00 90 mm[Hg] General acute hospital Heart rate 2021-08-18 15:00:00 75 /min [facility] Respiratory rate 2021-08-18 15:00:00 20 /min [facility] Oxygen saturation in Arterial blood by Pulse oximetry 2021-08-18 15:00:00 100 /min [facility] acute hospital Body temperature 2021-08-18 14:35:00 37.33 [place] [facility] Body height 2021-08-16 14:15:00 182.9 cm [facility] Body weight 2021-08-16 14:15:00 204.119 kg [facility] BMI 2021-08-16 14:15:00 61.03 kg/m2 [facility] Procedures Procedure Date / Time Performed Performing Clinician Source ED JOINT ASPIRATION/INJECTION 2023-11-16 23:28:08 Brenna Manzano [facility] XR ELBOW >3 VW LEFT 2023-11-16 22:36:04 Brenna Manzano [facility] CONSENT/REFUSAL FOR DIAGNOSI S AND TREATMENT 2023-11-16 21:59:25 Doctor Unassigned, [place] [facility] BLOOD CULTURE SCREEN 2023-08-19 21:46:00 Stacie Moss [facility] BLOOD CULTURE SCREEN 2023-08-19 21:30:00 Stacie Moss [facility] COMP. METABOLIC PANEL (25886) 2023-08-19 20:50:00 Stacie Moss [facility] CBC WITH DIFF 2023-08-19 20:50:00 Stacie Moss [facility] ASSIGNMENT OF BENEFITS 2023-08-19 20:14:54 Doctor Unassigned, [place] [facility] US LOWER EXTREMITY VEIN WITH COMPRESSION LEFT (ONLY FOR RULE OUT DVT) 2023-08-19 20:06:20 Stacie Moss [facility] CONSENT/REFUSAL FOR DIAGNOSI S AND TREATMENT 2023-08-19 18:33:06 Doctor Unassigned, [place] [facility] HB CREATININE SERUM/BLOOD FO R IMAGING 2023-08-14 17:49:00 Liliane Galicia [facility] ASSIGNMENT OF BENEFITS 2023-08-14 17:20:00 Doctor Unassigned, [place] [facility] PHACOEMULSIFICATION OF CATARACT WITH INTRAOCULAR LENS IMPLANT 2021-11-04 15:35:00 Christal Joshua [facility] COVID-19 (ID NOW RAPID TESTING) 2021-11-02 14:19:00 Christal Joshua [facility] LAB ONLY COVID INTERPRETATION 2021-11-02 14:19:00 Christal Joshua [facility] ASSIGNMENT OF BENEFITS 2021-10-29 16:45:12 Doctor Unassigned, [place] [facility] COLONOSCOPY 2021-08-18 13:44:00 Aman Ardon [facility] COLONOSCOPY (ENDO) 2021-08-18 13:37:11 Quirino Talbot [facility] COLONOSCOPY (ENDO) 2021-08-18 13:37:11 Quirino Talbot [facility] COVID-19 (ID NOW RAPID TESTING) 2021-08-16 15:46:00 Aman Ardon [facility] ASSIGNMENT OF BENEFITS 2021-08-16 15:36:54 Doctor Unassigned, [place] [facility] EXTERNAL PROVIDER RECORDS 2021-07-21 05:01:00 Doctor Unassigned, [place] [facility] EXTERNAL PROVIDER RECORDS 2021-07-21 05:01:00 Doctor Unassigned, [place] [facility] Encounters Start Date/Time End Date/Time Encounter Type Admission Type Attending Clinicians Care Facility Care Department Encounter ID Source 2024-02-07 05:27:00 2024-02-07 05:27:00 Outpatient Casey Mckeon [facility] [id number] [facility] 2023-11-16 16:07:00 2023-11-16 17:56:00 Emergency X BRENNA MANZANO [facility] ERT [id number] [facility] 2023-11-16 16:07:00 2023-11-16 17:56:00 Emergency Brenna Manzano [facility] 1.2.840.114 350.1.13.10 4.2.7.2.686 [id number] [facility] 2023-08-19 13:44:00 2023-08-19 19:23:00 Emergency X STACIE MOSS [facility] ERT [id number] [facility] 2023-08-19 13:44:00 2023-08-19 19:23:00 Emergency AufderStacie hackett [facility] 1.2.840.114 350.1.13.10 4.2.7.2.686 [id number] [facility] 2023-08-14 12:21:57 2023-08-14 23:59:00 Outpatient LILIANE DUMONT [facility] [id number] [facility] 2023-08-14 12:21:57 2023-08-14 23:59:00 Hospital Encounter Liliane Galicia [facility] 1.2.840.114 350.1.13.10 4.2.7.2.686 [id number] [facility] 2023-08-14 00:00:00 2023-08-14 00:00:00 Orders Only Doctor Unassigned, [place] [facility] 1.2.840.114 350.1.13.10 4.2.7.2.686 [id number] [facility] 2021-11-04 10:24:00 2021-11-04 11:00:00 Surgery Christal Joshua [facility] 1.2.840.114 350.1.13.10 4.2.7.2.686 [id number] [facility] 2021-11-04 08:47:00 2021-11-04 10:45:00 Hospital Encounter Christal Joshua [facility] 1.2.840.114 350.1.13.10 4.2.7.2.686 [id number] [facility] 2021-11-04 08:47:00 2021-11-04 10:45:00 Outpatient R CHRISTAL JOSHUA [facility] OPH [id number] [facility] 2021-11-02 08:00:00 2021-11-02 08:15:00 Laboratory Only Only, Adc Test Christal Joshua [facility] 1.2.840.114 350.1.13.10 4.2.7.2.686 [id number] [facility] 2021-11-02 08:00:00 2021-11-02 08:00:00 Outpatient R CHRISTAL JOSHUA [facility] [id number] [facility] 2021-10-29 10:50:56 2021-10-29 11:05:56 Bucket Turner Visit Pob, Adc Lab Christal Lilly [facility] 1..840.114 350.1.13.10 4.2.7.2.686 [id number] [facility] 2021-10-29 11:00:00 2021-10-29 11:00:00 Outpatient CHRISTAL WALLIS [facility] [id number] [facility] 2021-10-29 00:00:00 2021-10-29 00:00:00 Orders Only Doctor Unassigned, [place] [facility] 1..840.114 350.1.13.10 4.2.7.2.686 [id number] [facility] 2021-10-28 15:45:00 2021-10-28 15:45:00 Outpatient CHRISTAL WALLIS [facility] [id number] [facility] 2021-08-18 07:25:00 2021-08-18 10:08:00 Hospital Encounter Aman Rojas [facility] 1..840.114 350.1.13.10 4.2.7.2.686 [id number] [facility] 2021-08-18 07:25:00 2021-08-18 10:08:00 Outpatient R AMAN ROAJS [facility] [id number] [facility] 2021-08-18 09:24:00 2021-08-18 10:01:00 Surgery Aman Rojas [facility] 1..840.114 350.1.13.10 4.2.7.2.686 [id number] [facility] 2021-08-16 11:30:00 2021-08-16 11:30:00 Outpatient R AMAN ROJAS [facility] [id number] [facility] 2021-08-16 10:43:57 2021-08-16 10:58:57 Laboratory Only Only, Adc Test Aman Rojas [facility] 1..840.114 350.1.13.10 4.2.7.2.686 [id number] [facility] 2021-08-16 00:00:00 2021-08-16 00:00:00 Orders Only Doctor Unassigned, [place] [facility] 1.840.114 350.1.13.10 4.2.7.2.686 [id number] [facility] Results Test Description Test Time Test Comments Results Result Co mments Source - XR CHEST 1 [id number] [facility]:00[facility] 1960 Sex: M FAX: Casey Alberts V AL [place]: GC St: REG FAX: Jimi Rivera [phone] Name: ERENDIRA FRANZ [facility] : 1960 Age/S: 63/M [address] [place] [address] Unit #: [id number] Loc: [place] [address] Phys: Jimi Rivera Acct: [id number] Dis Date: Status: REG [facility] PHONE #: [phone] Exam Date:02/07/2024 1307 FAX #: [phone] Reason: Post PM/ICD EXAMS: CPT CODE: [id number] XR CHEST 1 V [id number] Dictation location: C4. CHEST, FRONTAL VIEW HISTORY: Post PM/ICD FINDINGS: Since 02/06/24, interval placement of a dual-lead left pacemaker the region right atrium and right ventricle. No pleural effusion or pneumothorax. Cardiomegaly with pulmonary edema. The bones are unremarkable. IMPRESSION:Interval placement of a dual-lead left pacemaker without a pneumothorax or pleural effusion. Cardiomegaly with mild pulmonary edema. at 1400 Reported and signed by: Adelaida English M.D. CC: Casey Alberts MD; Jimi Harkins Technologist: Maggie Davenport RT(R) Trnscrd Date/Time/By: 02/07/2024 (1400) : By: [email or web address] Orig Print D/T: S: 02/07/2024 (1403) PAGE 1 Signed ReportGLUCOSE [id number] 07:39:00* Test Item Value Reference Range Interpretation Comme nts GLUCOSE BEDSIDE (test code = GLUBED) 118 MG/DL 70-110 H Performed by nate mcmanus at [facility] - XR CHEST 2 [id number] 15:47:00 [facility] 1960 Sex: M FAX: Casey Alberts MD [place]: St: PRE Name: ERENDIRA FRANZ [facility] : 1960 Age/S: 63/M [address] [place] [address] Unit #: [id number] Loc: [place] [address] Phys: Casey Alberts MD Acct: [id number] Dis Date: Status: PRE SDC PHONE #: [phone] Exam Date: 02/06/2024 1310 FAX #: [phone] Reason: PRE OP EXAMS: CPT CODE: [id number] XR CHEST 2 V 72186 Location code: B2 HISTORY: Preop TECHNIQUE: Frontal and lateral views of the chest were obtained. FINDINGS: The cardiomediastinal silhouette is unremarkable. The trachea is midline. The lungs are clear. There is no effusion or pneumothorax. The bones are intact. IMPRESSION: No acute pulmonary process. at 1546 Reported and signed by: Junaid Guadalupe M.D. CC: Casey Alberts MD Technologist: RT Nava(R) Trnscrd Date/Time/By: 02/06/2024 (9802) : By: [email or web address] Orig Print D/T: S: 02/06/2024 (1421) PAGE 1 Signed ReportPROTHROMBIN [id number] 13:51:00* Test Item Value Reference Range Interpretation Comme nts PROTHROMBIN TIME PATIENT (test code = PTP) 12.4 SECONDS 9.3-12.9 N INTERNATIONAL NORMAL RATIO (test code = INR) 1.1 0.8-1.2 N TARGET INR BY INDICATION Indication INR1. Prophylaxis of venous thrombosis 2.0 - 3.0 (orthopedic surgery), Prophylaxis of venous thrombosis (other than high-risk surgery), Treatment of Deep Vein Thrombosis/Pulmonary Embolism, Prevention of systemic embolism - Tissue heart valves, Acute Myocardial Infarction (to prevent systemic embolism), Valvular heart disease, Atrial Fibrillation, Bileaflet mechanical valve in aortic position.2. Mechanical prosthetic valves (high risk), 2.5 - 3.5 Presence of Lupus Anticoagulant or Antiphospholipid Antibodies, Prevention of systemic embolism - Acute Myocardial Infarction (to prevent recurrent infarct). BASIC METABOLIC [id number] 13:49:00* Test Item Value Reference Range Interpretation Comme nts SODIUM (test code = NA) 136 mEq/L 134-147 N POTASSIUM (test code = K) 3.7 mEq/L 3.4-5.0 N CHLORIDE (test code = CL) 103 mEq/L 100-108 N CARBON DIOXIDE (test code = CO2) 25 mEq/l 21-33 N ANION GAP (test code = GAP) 11 0-20 N GLUCOSE (test code = GLU) 80 mg/dL 77-141 N BLOOD UREA NITROGEN (test code = BUN) 18 mg/dL 7-25 N GLOMERULAR FILTRATION RATE (test code = GFR) 97.2 80-90 H The Glomerular Filtration Rate is a calculated parameterbased on serum Creatinine, patient age and sex. GFR valuesless than 60 mL/min/1.73 square meters are indicative ofChronic Kidney Disease. Values less than 15 mL/min/1.73square meters indicate Kidney failure. The calculation forGFR is based on the CKD-EPI (2020) calculation. This formulais race indifferent and is the recommended formula for GFRby the National Kidney Foundation for Adults.The GFR will not calculate if the sex is unknown or if thepatient's age is <18 years. CREATININE (test code = CREAT) 0.9 mg/dL 0.6-1.3 N CALCIUM (test code = CA) 9.0 mg/dL 8.0-10.5 N CBC W/AUTO [id number] 13:39:00* Test Item Value Reference Range Interpretation Comme nts WHITE BLOOD CELL (test code = WBC) 6.2 x10 3/uL 4.5-11.0 N RED BLOOD CELL (test code = RBC) 4.95 x10 6/uL 4.00-5.60 N HEMOGLOBIN (test code = HGB) 15.0 g/dL 12.5-16.9 N HEMATOCRIT (test code = HCT) 44.4 % 37.5-50.7 N MEAN CELL VOLUME (test code = MCV) 89.7 fL 81.0-99.0 N MEAN CELL HGB (test code = MCH) 30.3 pg 27.0-33.0 N MEAN CELL HGB CONCETRATION (test code = MCHC) 33.8 g/dL 33.0-37.0 N RED CELL DISTRIBUTION WIDTH CV (test code = RDW) 13.6 % 11.5-14.5 N RED CELL DISTRIBUTION WIDTH SD (test code = RDW-SD) 44.0 fL 37.0-54.0 N PLATELET COUNT (test code = PLT) 258 x10 3/uL 150-400 N MEAN PLATELET VOLUME (test c ode = MPV) 9.9 fL 7.0-9.0 H NEUTROPHIL % (test code = NT%) 73.2 % 56.0-77.0 N IMMATURE GRANULOCYTE % (test code = IG%) 0.2 % 0.0-2.0 N LYMPHOCYTE % (test code = LY%) 14.7 % 14.0-32.0 N MONOCYTE % (test code = MO%) 9.5 % 4.8-9.0 H EOSINOPHIL % (test code = EO%) 1.3 % 0.3-3.7 N BASOPHIL % (test code = BA%) 1.1 % 0.0-2.0 N NUCLEATED RBC % (test code = NRBC%) 0.0 % 0-0 N NEUTROPHIL # (test code = NT#) 4.57 x10 3/uL 2.0-7.6 N IMMATURE GRANULOCYTE # (test code = IG#) 0.01 x10 3/uL 0.00-0.03 N LYMPHOCYTE # (test code = LY#) 0.92 x10 3/uL 1.0-3.8 L MONOCYTE # (test code = MO#) 0.59 x10 3/uL 0.1-0.8 N EOSINOPHIL # (test code = EO#) 0.08 x10 3/uL 0.0-0.2 N BASOPHIL # (test code = BA#) 0.07 x10 3/uL 0.0-0.2 N NUCLEATED RBC # (test code = NRBC#) 0.00 x10 3/uL 0.0-0.1 N XR ELBOW >3 VW [id number] 22:55:20ORDERING PHYSICIAN: TYRESE MANZANO HISTORY: left elbow swelling; [...] tendon. There is also some calcifications in t hisregion. There is overlying soft tissue swelling in the area, which would becompatible with the history of a bursitis.[facility] POCT [id number] 18:10:14* Test Item Value Reference Range Interpretation Comme nts POCT Creatinine (test code = 1434309797) 1.1 mg/dL 0.6-1.3 Lab Interpretation (test cod e = 88848-8) Normal [facility] Notes Date/Time Note Provider Source 2024-02-07 15:01:00 [id number] WvShcDHTJmSGLD HCNkOActj3kgMDQ/BEXQgU4f7r4oTz9sfu c/+PGHBV5026-58-59X91:01:109179-43 [address] [address] PATIENT NAME: ERENDIRA FRANZ ADMIT DATE: 02/07/24ACCOUNT NO: [id number] ROOM NO: AGE: 63 REPORT TYPE: OPERATIVE REPORT SEX: M ADMITTING PHYSICIAN: ATTENDING PHYSICIAN:Casey Alberts MD OPERATION DATE: 02/07/2024 CLINICAL LABORATORY TECHNICIAN: Casey Alberts M.D. PREOPERATIVE DIAGNOSES:1. Sick sinus syndrome.2. Dizziness.3. Palpitations. POSTOPERATIVE DIAGNOSES:1. Sick sinus syndrome.2. Dizziness.3. Palpitations. PROCEDURES PERFORMED.1. Dual chamber pacemaker implantation.2. Pacemaker interrogation.3. Venogram. ANESTHESIA:Moderate sedation PROCEDURE IN DETAIL: The patient was brought to the electrophysiology lab infasting and nonsedated state after informed consent was obtained. Blood pressure monitoring, oxygen saturation monitoring, ECG monitoring wasinitiated followed by placement of the cardioversion patches. Peripheral IVswere inserted. After the timeout, IV moderate sedation was provided with Versedand fentanyl and prophylactic IV antibiotics were given. Following this, the patient was prepped and draped in sterile fashion. We thenmade 2 cm incision in the left infraclavicular area after marking the venogramvia fluoroscopy. After giving additional moderate sedation and localanesthesia, we created the pocket using blunt dissection and achieved 2 venousaccesses using modified Seldinger technique with confirmation of the guidewiresin the IVC. We then placed RV followed by RA lead using standard techniques, fluoroscopyguidance and peel-away dilator sheaths. After adequate parameters wereobtained, the RV leads followed by the RA lead was sewn to the prepectoral faciaand muscle using 0 silk. The pocket was flushed with antibiotic solution. Anew dual chamber pacemaker generator was connected to the leads and was placedin the pocket. Vancomycin powder was applied. The pocket was closed in runninglayers using 2-0 Stratafix sutures. Pressure dressing was applied. Sponge and PATIENT NAME: ERENDIRA FRANZ needle counts were verified. RECOMMENDATIONS.:1. Left arm sling for 1 week, left arm precautions for 6 weeks.2. Follow up in EP clinic. PACEMAKER SYSTEM: [employer] pacemaker system. RA lead 3.2 millivolts, 1.0 volt at 0.40 milliseconds, 620 ohms, model #7841,serial #[id number].RV lead, 9.5 millivolts, 0.6 volts at 0.40 milliseconds, 811 ohms. Model #7842,serial #[id number].PACEMAKER GENERATOR: Model #L331, serial #[id number], mode DDDR. Dictated By: Casey Alberts MD Date Dictated: 02/07/2024 15:01:18Date Transcribed: 02/07/2024 16:05:57HG/CHAJob #: [id number] ID: [id number] and Edited by Casey Alberts MD On 02/27/24 8:07:43 PM at 0809 PATIENT NAME: ERENDIRA FRANZ orletr0511-46-17U32:05:00G.KEA0984 [id number] for patient xvqdHPFMWZDCIVEDHR4899-17-05P08:10 :15 [facility] 2024-02-06 13:15:00 [id number]/[id number] xFQYJ3glLQXU/H LGJxCAoVK02sBkVUuNA8mvnCtzOhy1Mc1/ t8YM7F1l0709-01-18X90:15:643909-[address] [place] [address] PATIENT NAME: ERENDIRA FRANZ ADMIT DATE: ACCOUNT NO: [id number] ROOM NO: AGE: 63 REPORT TYPE: eELECTROCARDIOGRAM REPORT SEX: M ADMITTING PHYSICIAN: ATTENDING PHYSICIAN:Casey Alberts MD Order:[id number] Reason : PREOP Test Date/Time Stamp:MonFeb 06 2024 13:15:45Blood Pressure : / mmHGVent. Rate : 082 BPM Atrial Rate : 082 BPM P-R Int : 316 ms QRS Dur : 166 ms QT Int : 394 ms P-R-T Axes : 029 202 022 degrees QTc Int : 460 ms Sinus rhythm with 1st degree AV blockRight bundle branch blockAbnormal ECGNo previous ECGs availableConfirmed by DOMINICK GRIFFITHS MD ([id number]) on 02/06/2024 2:29:01 PM Referred By: Casey Alberts Confirmed by:PORTIA GRIFFITHS MD at 1429 PATIENT NAME: ERENDIRA FRANZ .C [id number] for patient datwCHQVXSRZVJBXEY7188-85-69M66:29 :28 [facility] 2023-11-16 17:55:18 XyKb4aFvUM7oi6AYsu4x /F074PqewpzbJw KxApY0dTAnAhynqrwkqCwqVoyNNhYa4931 -12-28T17:55:18 Pt given printed and verbal discharge [...] with steady gait, in no apparent distress, [address]-7Kdahgmokn department QfnuDW2286-27-31P05:56:21[facility] NoteTXT1.2.840.837474.1.13.104.2.7 .2.818131|[id number] for patient brhx81039-1JvpkILGYQVMORVDMthjiery d C-CDA narrative [id number] M Felix RNUT[address] StreetDf[id number] 97ONECMRHTUWNZFBXGNOGNWC4189-23-96 T17:56:211.2.840.828668.1.72.3.15| 1.2.840.215345.1.13.104.2.7.2.7278 [id number] Katie Ag RN [facility] 2023-11-16 16:40:47 Li84wST2MDN4G+gUxxOQ wSDbeHwI+ricen LBgT3JyOF0zf8u3fm4yqgBUG2VLkG81176 -12-28T16:40:47 LET applied to left elbow 85736-3Wdgtcuxlc department CaxxHN1955-81-81L85:41:00[facility] NoteTXT1.2.840.472710.1.13.104.2.7 .2.550035|[id number] for patient lysh49924-2DqlyDQRMSHWXWEJUusfexmj d C-CDA narrative text32 [id number] 04EOQYMESHHVCQKCTDYPFRRU8031-07-62 T16:41:001.2.840.937793.1.72.3.15| 1.2.840.811268.1.13.104.2.7.2.7278 [id number] [facility] 2023-11-16 16:04:57 NqUee4Ejw/J1QvVWNyqH U2icyNFvqry48L KnzrCxBY3tKH5uKSn0XadLNts3IjI00191 T16:04:57 Diagnosed with bursitis today by bed bug exterminator. Sent by them to ER to "have it drained". 42262-4Dclcliusl department Triage ogauZC1410-15-77C35:06:01[facility] department Triage noteTXT1.2.840.659835.1.13.104.2.7 .2.143143|[id number] for patient korr75451-7Dkviuzynw department NoteLNNARRATIVEFormatted C-CDA narrative [id number] Fief RNUT[address] [id number] 12XTPOPDPBOJQWOSCYIZNQVG9404-71-26 T16:06:011.2.840.029742.1.72.3.15| 1.2.840.662276.1.13.104.2.7.2.7278 [id number] Haven Alicea RN [facility]
[2024-03-12 13:02] LABS: Absolute Basophils 0.1 K/uL (0-0.5); Absolute Eosinophils 0.1 K/uL (0-0.5); Absolute Lymphocytes (CBC) 0.8 K/uL (0.7-4.9); Absolute Monocytes 0.5 K/uL (0.1-1.3); Absolute Neutrophil 4.8 K/uL (1.8-8.0); Hematocrit 43.9 % (39.6-49.0); Hemoglobin 14.3 g/dL (13.6-17.9); Lymphocytes % 13.5 % (15.3-44.8); MCH 30.1 pg (27.0-35.0); MCHC 32.7 g/dL (32.0-36.0); Monocytes % 7.3 % (3.3-12.3); Neutrophils % 77.2 % (41.7-73.7); Platelets 258 thou/uL (152-406); RBC Red Blood Cell Count 4.77 M/uL (4.33-5.43); Red Cell Distribution Width 14.8 % (12.1-15.2)
[2024-03-12 13:18] LABS: Anion Gap 9.8 mEq/L (5.0-15.0); Potassium 3.8 mEq/L (3.5-5.1); Troponin High Sensitivity 16.1 pg/mL (<58.9)
--- NOTE | 2024-03-12 14:08 | RAD REPORT ---
EXAM DESCRIPTION: [facility] Single View03/12/2024 1:51 pm CLINICAL HISTORY: Chest pain COMPARISON: January 20, 2024 FINDINGS: The lungs appear clear of acute infiltrate. The heart is mildly enlarged. Pacemaker leads are in place. IMPRESSION: No acute abnormalities displayed
--- NOTE | 2024-03-12 14:10 | ER ---
Nurse's Notes [facility] Name: Grupo Mcdonald Jr Age: 63 yrs Sex: Male : 1960 Arrival Date: 03/12/2024 Time: 12:05 Bed 20 Private MD: Diagnosis: Chest pain, unspecified Presentation: 03/12 12:16 Chief complaint: Patient states: he had a pacemaker placed approx 4.5 weeks ago, and ap3 started having mid chest pain 1 hour [employer]. patient states he called his provider, and was informed to come to the ED for further evaluation. patient rates his pain as a 5/10 on the pain scale at this time. Coronavirus screen: At this time, the client does not indicate any symptoms associated with coronavirus-19. Ebola Screen: No symptoms or risks identified at this time. Initial Sepsis Screen: Does the patient meet any 2 criteria? No. Patient's initial sepsis screen is negative. Does the patient have a suspected source of infection? No. Patient's initial sepsis screen is negative. Risk Assessment: Do you want to hurt yourself or someone else? Patient reports no desire to harm self or others. Onset of symptoms was March 12, 2024 at 11:00. 12:16 Method Of Arrival: Other ap3 12:16 Acuity: MARTY 2 ap3 Triage Assessment: 12:18 General: Appears in no apparent distress. Behavior is calm, cooperative. Pain: ap3 Complains of pain in chest Pain currently is 5 out of 10 on a pain scale. Pain began 1 hour ago. Neuro: Level of Consciousness is awake, alert, obeys commands, Oriented to person, place, time, situation. Cardiovascular: Reports chest pain. Respiratory: Airway is patent Respiratory effort is even, unlabored, Respiratory pattern is regular, symmetrical. Historical: - Allergies: 12:16 Codeine; ap3 12:16 Vicodin; ap3 - PMHx: 12:16 asbestosis; Cellulitis; Gout; Hypertension; lymphedema; Pre Diabetes; Psoriatic ap3 Arthritis; stroke; pacemaker (stroke); - Immunization history:: Client reports having NOT received the Covid vaccine. - Infectious Disease History:: Denies. - Social history:: Smoking status: Patient denies any tobacco usage or history of. - Family history:: not pertinent. - Hospitalizations: : Patient was recently seen at. Screenin:19 Abuse screen: Denies threats or abuse. Nutritional screening: No deficits noted. ap3 Tuberculosis screening: No symptoms or risk factors identified. 12:38 [facility] ED Fall Risk Assessment (Adult) History of falling in the last 3 months, mb9 including since admission No falls in past 3 months (0 pts) Confusion or Disorientation No (0 pts) Intoxicated or Sedated No (0 pts) Impaired Gait No (0 pts) Mobility Assist Device Used No (0 pt) Altered Elimination No (0 pt) Score/Fall Risk Level 0 - 2 = Low Risk Oriented to surroundings, Maintained a safe environment, Educated pt \T\ family on fall prevention, incl call for assistance when getting out of bed. Assessment: 12:19 Pain: Pain does not radiate. ap3 12:38 General: Appears in no apparent distress. Behavior is calm, cooperative. Pain: Denies mb9 pain. Neuro: Carr Agitation-Sedation Scale (RASS): 0 - Alert and Calm Level of Consciousness is awake, alert, obeys commands, Oriented to person, place, time, situation, Appropriate for age. Cardiovascular: Heart tones S1 S2 present Patient's skin is warm and dry. Rhythm is Respiratory: Airway is patent Respiratory effort is even, unlabored, Respiratory pattern is regular, symmetrical, Breath sounds are clear bilaterally. Denies shortness of breath. GI: Abdomen is round non-distended, Bowel sounds present X 4 quads. Abd is soft and non tender X 4 quads. : No signs and/or symptoms were reported regarding the genitourinary system. EENT: No signs and/or symptoms were reported regarding the EENT system. Derm: Skin is pink, warm \T\ dry. Musculoskeletal: Range of motion: intact in all extremities. 13:44 Reassessment: No changes from previously documented assessment. Patient and/or family mb9 updated on plan of care and expected duration. Pain level reassessed. Patient is alert, oriented x 3, equal unlabored respirations, skin warm/dry/pink. 14:17 Reassessment: No changes from previously documented assessment. Patient and/or family mb9 updated on plan of care and expected duration. Pain level reassessed. Patient is alert, oriented x 3, equal unlabored respirations, skin warm/dry/pink. Vital Signs: 12:16 BP 168 / 74; Pulse 79; Resp 18; Temp 98.4; Pulse Ox 100% ; Weight 176.9 kg; Height 6 ap3 ft. 0 in. ; Pain 5/10; 12:56 BP 159 / 74; Pulse 74; Resp 16; Pulse Ox 98% on R/A; mb9 14:17 BP 136 / 86; Pulse 77; Resp 16; Pulse Ox 100% on R/A; mb9 12:16 Body Mass Index 52.89 (176.90 kg, 182.88 cm) ap3 12:16 Pain Scale: Adult ap3 ED Course: 12:10 Patient arrived in ED. mg5 12:17 Albert Caputo MD is Attending Physician. rn 12:18 Triage completed. ap3 12:19 O2 via room air. ap3 12:19 Arm band placed on left wrist. ap3 12:26 Tri Smith, RN is Primary Nurse. mb9 12:28 EKG done, by ED staff, reviewed by Albert Caputo MD. ap3 12:28 Patient has correct armband on for positive identification. Bed in low position. Call ap3 light in reach. 12:38 No provider procedures requiring assistance completed. mb9 12:38 Provided Education on: press call light if needing anything. Client placed on mb9 continuous cardiac and pulse oximetry monitoring. NIBP monitoring applied. manager monitoring on. 12:56 Basic Metabolic Panel Sent. mb9 12:56 CBC with Diff Sent. mb9 12:56 Troponin HS Sent. mb9 12:56 Initial lab(s) drawn, by sc, sent to lab. Inserted saline lock: 22 gauge in right mb9 forearm, using aseptic technique. 13:53 XRAY Chest (1 view) In Process Unspecified. EDMS 14:17 IV discontinued, intact, bleeding controlled, No redness/swelling at site. Pressure mb9 dressing applied. Administered Medications: No medications were administered Medication: 12:38 VIS not applicable for this client. mb9 Outcome: 14:10 Discharge ordered by . rn 14:18 Discharged to home ambulatory, mb9 14:18 Condition: stable 14:18 Discharge instructions given to patient, Instructed on discharge instructions, follow up and referral plans. Demonstrated understanding of instructions, follow-up care, 14:18 Patient left the ED. mb9 Signatures: Dispatcher [employer] EDMS Albert Caputo MD MD rn Prokisch, Amanda, RN RN ap3 Tri Smith, RN RN mb9 Yesenia Cee 5
--- NOTE | 2024-03-12 14:11 | EDPHYS ---
Physician Documentation [facility] Name: Grupo Mcdonald Jr Age: 63 yrs Sex: Male : 1960 Arrival Date: 03/12/2024 Time: 12:05 Bed 20 Private MD: ED Physician Albert Caputo HPI: 03/12 13:11 This 63 yrs old Male presents to ER via Other with complaints of Chest Pain. rn 13:11 The patient or guardian reports chest pain that is located primarily in the substernal rn area. Onset: yesterday. The pain does not radiate. Associated signs and symptoms: Pertinent positives: None. Pertinent negatives: abdominal pain, cough, diaphoresis, palpitations, shortness of breath, syncope, vomiting. The chest pain is described as sharp, stabbing. Duration: The patient or guardian reports multiple episodes, that are intermittent. Modifying factors: The symptoms are alleviated by nothing. the symptoms are aggravated by nothing. Severity of pain: At its worst the pain was very mild in the emergency department the pain has improved. The patient has not experienced similar symptoms in the past. Patient reports an pacemaker placed 5 weeks ago for bradycardia. He has been doing well since then but last couple days has noted some substernal chest pain, sharp and poking. No trauma. Just saw his ic engineer this week and told pacemaker was functioning perfectly. Denies shortness of breath. No hemoptysis. No cough. No shortness of breath. No abdominal pain. Patient states prior to pacemaker placement had a recent cath that showed had worse 30% lesion in one of his vessels.. Historical: - Allergies: 12:16 Codeine; ap3 12:16 Vicodin; ap3 - PMHx: 12:16 asbestosis; Cellulitis; Gout; Hypertension; lymphedema; Pre Diabetes; Psoriatic ap3 Arthritis; stroke; pacemaker (stroke); - Immunization history:: Client reports having NOT received the Covid vaccine. - Infectious Disease History:: Denies. - Social history:: Smoking status: Patient denies any tobacco usage or history of. - Family history:: not pertinent. - Hospitalizations: : Patient was recently seen at. ROS: 13:11 Constitutional: Negative for fever, chills, and weight loss, Cardiovascular: Positive rn for chest pain Respiratory: Negative for shortness of breath, cough, wheezing, and pleuritic chest pain, Abdomen/GI: Negative for abdominal pain, nausea, vomiting, diarrhea, and constipation, MS/Extremity: Negative for injury and deformity, Skin: Negative for injury, rash, and discoloration, Neuro: Negative for headache, weakness, numbness, tingling, and seizure, Exam: 13:21 Constitutional: This is a well developed, well nourished patient who is awake, alert, rn and in no acute distress. Cardiovascular: Regular rate and rhythm. No pulse deficits. Respiratory: No increased work of breathing, no retractions or nasal flaring. Abdomen/GI: Soft, non-tender MS/ Extremity: 1+ edema bilateral lower extremities, equal, nonpainful Neuro: Awake and alert, GCS 15 13:34 ECG was reviewed by the Attending Physician. rn Vital Signs: 12:16 BP 168 / 74; Pulse 79; Resp 18; Temp 98.4; Pulse Ox 100% ; Weight 176.9 kg; Height 6 ap3 ft. 0 in. ; Pain 5/10; 12:56 BP 159 / 74; Pulse 74; Resp 16; Pulse Ox 98% on R/A; mb9 14:17 BP 136 / 86; Pulse 77; Resp 16; Pulse Ox 100% on R/A; mb9 12:16 Body Mass Index 52.89 (176.90 kg, 182.88 cm) ap3 12:16 Pain Scale: Adult ap3 MDM: 12:17 Patient medically screened. rn 14:09 Differential diagnosis: coronary artery disease chest wall pain, costochondritis, rn gastroesophageal reflux disease (GERD), pericarditis, pleurisy, pneumothorax. Data reviewed: vital signs, nurses notes, lab test result(s), EKG, radiologic studies, plain films, and as a result, I will discharge patient. Counseling: I had a detailed discussion with the patient and/or guardian regarding the historical points, exam findings, and any diagnostic results supporting the discharge/admit diagnosis, lab results, radiology results, the need for outpatient follow up, to return to the emergency department if symptoms worsen or persist or if there are any questions or concerns that arise at home. Special discussion: I discussed with the patient/guardian in detail that at this point there is no indication for admission to the hospital. It is understood, however, that if the symptoms persist or worsen the patient needs to return immediately for re-evaluation. 03/12 12:48 Order name: Basic Metabolic Panel; Complete Time: 13:25 rn 03/12 12:48 Order name: CBC with Diff; Complete Time: 13:25 rn 03/12 12:48 Order name: Troponin HS; Complete Time: 13:25 rn 03/12 12:48 Order name: XRAY Chest (1 view); Complete Time: 14:09 rn 03/12 12:48 Order name: Cardiac monitoring; Complete Time: 12:55 rn 03/12 12:48 Order name: EKG - Nurse/Tech; Complete Time: 12:55 rn 03/12 12:48 Order name: IV Saline Lock; Complete Time: 12:56 rn 03/12 12:48 Order name: Labs collected and sent; Complete Time: 12:56 rn 03/12 12:48 Order name: O2 Per Protocol; Complete Time: 12:56 rn 03/12 12:48 Order name: O2 Sat Monitoring; Complete Time: 12:56 rn EC:34 Rate is 76 beats/min. Rhythm is regular. QRS [place] is Normal. TN interval is normal. QRS rn interval is prolonged at 198 msec. QT interval is normal. No Q waves. T waves are Normal. No ST changes noted. Clinical impression: Demand pacemaker. Interpreted by me. Reviewed by me. Administered Medications: No medications were administered Disposition Summary: 03/12/24 14:10 Discharge Ordered Notes: Location: Home rn Problem: new rn Symptoms: have improved rn Condition: Stable rn Diagnosis - Chest pain, unspecified rn Followup: rn - With: Private Physician - When: As needed - Reason: Recheck today's complaints, Re-evaluation by your physician Discharge Instructions: - Discharge Summary Sheet rn - Nonspecific Chest Pain, Adult rn Forms: - Medication Reconciliation Form rn - Antibiotic flange turner - Prescription Opioid Use rn - Patient Portal Instructions rn - Leadership Thank You Letter rn Signatures: Dispatcher [employer] EDAlbert Francis MD MD rn Prokisch, Amanda, RN RN ap3 Corrections: (The following items were deleted from the chart) 12:49 12:49 BASIC METABOLIC PANEL+C.LAB.BRZ ordered. EDMS EDMS 12:49 12:49 CBC+H.LAB.BRZ ordered. EDMS EDMS 12:49 12:49 Troponin High Sensitivity+C.LAB.BRZ ordered. EDMS EDMS
[2024-03-12 14:37] VITALS: BP 136/86; TEMP 98.4; O2SAT 100
--- NOTE | 2024-03-14 16:50 | EKG ---
Test Date: 2024-03-12 Test Time: 12:24:01 Loader Unloader: ALP MEASUREMENT RESULTS: Intervals: Rate: 76 MA: 200 QRSD: 198 QT: 460 QTc: 517 [place]: P: 42 MA: 200 QRS: -59 T: 113 INTERPRETIVE STATEMENTS: Ventricular premature complexs Electronically Signed On 03-14-24 16:43:50 CDT by Omer Yan
== END 2024-03-12 14:18 | disposition home or self-care (01) ==
LOC: ER 12:05
DX: R07.9 Chest pain, unspecified (principal); I10 Essential (primary) hypertension; Z95.0 Presence of cardiac pacemaker; Z88.5 Allergy status to narcotic agent; Z28.310 Unvaccinated for COVID-19
CPT/HCPCS: 36415; 71045; 80048; 84484; 85025; 93005; 99285

== ENCOUNTER 2024-05-12 17:00 | Emergency (ER) | payer OTHER ==
--- OUTSIDE RECORDS SUMMARY | 2024-05-12 17:04 | XMS REPORT | Continuity of Care Document ---
Author Name Unknown Address [address] 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 RADHA QUIRINO Moraes Primary Care Physician Unavailab Casey Gonzales V Attending Clinician Unavailable BRENNA MANZANO Attending Clinician Unavailable STACIE MOSS Attending Clinician Stacei Young MD Attending Clinician + LILIANE GALICIA Attending Clinician Unavailable Liliane Galicia MD Attending Clinician [phone] Doctor Unassigned, [place]rit[place] Attending Clinician U Christal Brar MD Attending Clinician +- [phone] CHRISTAL JOSHUA Attending Clinician Lisa cruz Only, Adc Test Attending Clinician Unavailable Pob, Adc Lab Main Attending Clinician UnavailAman Malhotra MD Attending Clinician +- [phone] AMAN ARDON Attending Clinician Lisa cruz Physician, No Primary or Family Admitting Clinic carola Unavailable BRENNA MANZANO Admitting Clinician Unavailable STACIE MOSS Admitting Clinician LILIANE Morrell Admitting Clinician Christal Kelly MD Admitting Clinician [phone] CHRISTAL JOSHUA Admitting Clinician Aman Lucas MD Admitting Clinician [phone] AMAN ARDON Admitting Clinician Lisa cruz Payers Payer Name Policy Type Policy Number Effective Date Expirati on Date Source [employer] MED[employer]ARE ADVANTAGE [id number] 2021 00:00:00 Problems Condition Name Condition Details Condition Category Status Onset Date Resolution Date Last Treatment Date Treating Clinician Comments Source Acute bursitis Acute bursitis Disease Active 2022-11 00:00: 00 [facility] Body mass index (BMI) 60.0-69.9, adult Body mass index (BMI) 60.0-69.9, adult Disease Active 2022-11 00:00: 00 [facility] Abdominal pain of unknown etiology Abdominal pain of unknown etiology Disease Active 8-31 00:00: 00 [facility] Candidal intertrigo Candidal intertrigo Disease Active 5-17 00:00: 00 [facility] 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 Disease Active 5-17 00:00: 00 [facility] Diabetes mellitus Diabetes mellitus Disease Active 5-05 00:00: 00 [facility] Psoriatic arthritis Psoriatic arthritis Disease Active 2021-11 1-15 00:00: 00 [facility] Acute serous otitis media of right ear Acute serous otitis media of right ear Disease Active 4-26 00:00: 00 [facility] Bronchitis Bronchitis Disease Active 2019-11 00:00: 00 [facility] Cellulitis of left lower limb Cellulitis of left lower limb Disease Active 2019-11 00:00: 00 [facility] Hyperchole sterolemia Hyperchole sterolemia Disease Active 2019-11 00:00: 00 [facility] Chronic low back pain Chronic low back pain Disease Active 04-17 00:00: 00 [facility] Gastroesop hageal reflux disease Gastroesop hageal reflux disease Disease Active 04-17 00:00: 00 [facility] Hypertensi on Hypertensi on Disease Active 04-17 00:00: 00 [facility] Dyslipidem ia Dyslipidem ia Disease Active 03-25 00:00: 00 [facility] History of cerebrovas cular accident History of cerebrovas cular accident Disease Active 03-25 00:00: 00 [facility] Varicose veins of unspecifie d lower extremity with ulcer other part of lower leg (CODE) Varicose veins of unspecifie d lower extremity with ulcer other part of lower leg (CODE) Disease Active 08-05 00:00: 00 [facility] Allergies, Adverse Reactions, Alerts Allergy Name Allergy Type Status Severity Reaction(s) Onset Date Inactive Date Treating Clinician Comments Source No Known Allergie s DA Active U 02-05 00:00: 00 [facility] Hydrocod one-Acet aminophe n Propensi ty to adverse reaction s Active Unknown - See comments 08-16 00:00: 00 Adrianfernandez [facility] HYDROCOD ONE-ACET AMINOPHE N DRUG Active Unknown-Cmnt 08-16 00:00: 00 [facility] Codeine Propensi ty to adverse reaction s to drug Active Nausea and/or Vomiting 2014-11 00:00: 00 [facility] CODEINE DRUG INGREDI Active Med N/V 2014-11 00:00: 00 [facility] Social History Social Habit Start Date Stop Date Quantity Comments Source Exposure to SARS-CoV-2 (event) Not sure [facility] Alcohol intake 2023-11-16 00:00:00 2023-11-16 00:00:00 Current non-drinker of alcohol (finding) [facility] History of Social function 2021-11-04 00:00:00 2021-11-04 00:00:00 [facility] Tobacco use and exposure 2015-09-08 00:00:00 2015-09-08 00:00:00 Smokeless tobacco non-user [facility] Sex Assigned At 1960 00:00:00 1960 00:00:00 [facility] Smoking Status Start Date Stop Date Source Never smoked tobacco [facility] Medications Ordered Medication Name Filled Medication Name Start Date Stop Date Current Medication? Ordering Clinician Indication Dosage Frequency Signature (SIG) Comments Components Source indomethaci n (INDOCIN) capsule 50 mg 2022-11 00:00: 00 11-16 23:17 :00 No 50mg 50 mg, Oral, ONCE, 1 dose, On Mariajose 11/16/23 at 1800, Routine [facility] indomethaci n 50 mg capsule 2022-11 00:00: 00 Yes [id number] 50mg Take 1 capsule by mouth 3 (three) times daily as needed for Pain for up to 15 doses. [facility] vancomycin (VANCOCIN) 1,500 mg in NaCl 0.9% [...] Tissue
Duration of Therapy: Other (see Comments) [facility] clindamycin 150 mg capsule 08-19 00:00: 00 08-30 04:59 :00 No [id number] 450mg Take 3 capsules by mouth 4 (four) times daily for 10 days. [facility] iopamidol (ISOVUE 370-500 mL) injection 100 mL 08-14 19:00: 00 08-14 18:10 :00 No [id number] 100mL 100 mL, Intravenou s, ONCE, 1 dose, On 08/14/23 at 1400, Routine [facility] water for irrigation irrigation solution 2020-11 15:49: 00 Yes PRN, Starting on Mon11/04/21 at 0949, Until Discontinu ed, Routine, Intra-op [facility] neomycin-po lymyxin-dex amethasone (MAXITROL) 3.5 mg/g-10,000 unit/g-0.1 % ophthalmic ointment 2020-11 15:49: 00 Yes PRN, Starting on Mon11/04/21 at 0949, Until Discontinu ed, Routine, Intra-op [facility] gentamicin injection 2020-11 15:49: 00 Yes PRN, Starting on Mon11/04/21 at 0949, Until Discontinu ed, AGUILA, Intra-op [facility] DUOVISC (DUOVISC VISCO ELASTIC) 3 %-4 %(0.5 mL) 1 % (0.55 mL) intraocular injection 2020-11 15:48: 00 Yes PRN, Starting on Mon11/04/21 at 0948, Until Discontinu ed, Routine, Intra-op [facility] dexamethaso ne (DECADRON PHOSPHATE) injection 2020-11 15:48: 00 Yes PRN, Starting on Mon11/04/21 at 0948, Until Discontinu ed, Routine, Intra-op [facility] NaCl 0.9% (NS) injection 2020-11 15:48: 00 Yes PRN, Starting on Mon11/04/21 at 0948, Until Discontinu ed, Routine, Intra-op [facility] ceFAZolin (ANCEF) injection 2020-11 15:47: 00 Yes PRN, Starting on Mon11/04/21 at 0947, Until Discontinu ed, AGUILA, Intra-op [facility] tetracaine (PONTOCAINE ) 0.5 % ophthalmic drops 2020-11 15:47: 00 Yes PRN, Starting on Mon11/04/21 at 0947, Until Discontinu ed, Routine, Intra-op [facility] eye block syringe 11 mL 2020-11 15:46: 00 Yes PRN, Starting on Mariajose 11/04/21 at 0946, Until Discontinu ed, Intra-op [facility] EPINEPHrine (PF) 1:1,000 (1 mg/mL) (ADRENALIN (PF)) injection 2020-11 15:45: 00 Yes PRN, Starting on Mariajose 11/04/21 at 0945, Until Discontinu ed, Routine, Intra-op [facility] balanced salt soln no.2 irrig. (BSS) ophthalmic solution 2020-11 15:44: 00 Yes PRN, Starting on Mariajose 11/04/21 at 0944, Until Discontinu ed, Routine, Intra-op [facility] cyclopent 1%-tropic 1%-phenyl 2.5%-ketor 0.5% (MYDRIATIC #5) ophthalmic solution syringe 0.5 mL 2020-11 15:00: 00 11-04 15:01 :00 No .5mL 0.5 mL, Right Eye, ONCE, 1 dose, On Mariajose 11/04/21 at 0900, Routine, DSU Pre-op [facility] lactated ringers IV infusion 1,000 mL 2020-11 15:00: 00 11-04 15:01 :00 No 1000mL at 42 mL/hr, 1,000 mL, IV Infusion, ONCE, 1 dose, On Mariajose 11/04/21 at 0900, Routine, DSU Pre-op [facility] aspirin 81 mg EC tablet 2020-11 11:31: 49 Yes 81mg Take 81 mg by mouth daily. [facility] lisinopril (PRINIVIL,Z ESTRIL) 20 mg tablet 2020-11 11:31: 49 Yes 20mg Take 20 mg by mouth 2 (two) times daily. [facility] verapamil (ISOPTIN) 120 mg tablet 2020-11 11:31: 49 Yes 120mg Take 120 mg by mouth 2 (two) times daily. [facility] ALBUTEROL INHALE 2020-11 2-16 11:31: 49 Yes Inhale. [facility] simethicone (GAS RELIEF (SIMETHICON E)) 40 mg/0.6 mL drops 08-18 14:10: 00 Yes PRN, Starting on Mon08/18/21 at 0910, Until Discontinu ed, Routine, Intra-op [facility] lactated ringers IV infusion 1,000 mL 08-18 13:15: 00 08-18 13:02 :00 No 1000mL at 42 mL/hr, 1,000 mL, IV Infusion, ONCE, 1 dose, On Mon08/18/21 at 0815, Routine, DSU Pre-op [facility] aspirin 81 mg EC tablet 08-18 10:12: 34 Yes 81mg Take 81 mg by mouth daily. [facility] lisinopril (PRINIVIL,Z ESTRIL) 20 mg tablet 08-18 10:12: 34 Yes 20mg Take 20 mg by mouth 2 (two) times daily. [facility] verapamil (ISOPTIN) 120 mg tablet 08-18 10:12: 34 Yes 120mg Take 120 mg by mouth 2 (two) times daily. [facility] aspirin 81 mg EC tablet 2014-11 10:44: 23 Yes 81mg Take 81 mg by mouth daily. [facility] lisinopril (PRINIVIL,Z ESTRIL) 20 mg tablet 2014-11 10:44: 23 Yes 20mg Take 20 mg by mouth 2 (two) times daily. [facility] verapamil (ISOPTIN) 120 mg tablet 2014-11 10:44: 23 Yes 120mg Take 120 mg by mouth 2 (two) times daily. [facility] Vital Signs Vital Name Observation Time Observation Value Comments Lillian lopez Systolic blood pressure 2023-11-16 22:06:00 134 [facility]Hg[facility] Di[facility] blood pressure 2023-11-16 22:06:00 94 mm[Hg[facility] Heart rate 2023-11-16 22:06:00 81 /min [facility] Body temperature 2023-11-16 22:06:00 37 [place] [facility] Respiratory rate 2023-11-16 22:06:00 18 /min [facility] Body height 2023-11-16 22:06:00 182.9 cm [facility] Body weight 2023-11-16 22:06:00 184.614 kg [facility] BMI 2023-11-16 22:06:00 55.20 kg/m2 [facility] Oxygen saturation in Arterial blood by Pulse oximetry 2023-11-16 22:06:00 99 /min [facility] Systolic blood pressure 2023-08-20 00:00:00 141 mm[Hg] [facility] Diastolic blood pressure 2023-08-20 00:00:00 69 mm[Hg] [facility] Heart rate 2023-08-20 00:00:00 76 /min [facility] Respiratory rate 2023-08-20 00:00:00 16 /min [facility] Oxygen saturation in Arterial blood by Pulse oximetry 2023-08-20 00:00:00 99 /min [facility] Body temperature 2023-08-19 18:43:00 37.22 [place] [facility] Body height 2023-08-19 18:43:00 182.9 cm [facility] Body weight 2023-08-19 18:43:00 185.294 kg [facility] BMI 2023-08-19 18:43:00 55.40 kg/m2 [facility] Systolic blood pressure 2021-11-04 16:37:00 146 mm[Hg] [facility] Diastolic blood pressure 2021-11-04 16:37:00 69 mm[Hg] [facility] Oxygen saturation in Arterial blood by Pulse oximetry 2021-11-04 16:37:00 99 /min [facility] Heart rate 2021-11-04 16:30:00 71 /min [facility] Respiratory rate 2021-11-04 16:30:00 24 /min [facility] Body temperature 2021-11-04 16:11:00 36.89 [place] [facility] Body height 2021-10-26 14:41:00 182.9 cm [facility] Body weight 2021-10-26 14:41:00 204.1 kg [facility] BMI 2021-10-26 14:41:00 61.01 kg/m2 [facility] Systolic blood pressure 2021-11-04 16:37:00 146 mm[Hg] [facility] Diastolic blood pressure 2021-11-04 16:37:00 69 mm[Hg] [facility] Oxygen saturation in Arterial blood by Pulse oximetry 2021-11-04 16:37:00 99 /min [facility] Heart rate 2021-11-04 16:30:00 71 /min [facility] Respiratory rate 2021-11-04 16:30:00 24 /min [facility] Body temperature 2021-11-04 16:11:00 36.89 [place] [facility] Body height 2021-10-26 14:41:00 182.9 cm [facility] Body weight 2021-10-26 14:41:00 204.1 kg [facility] BMI 2021-10-26 14:41:00 61.01 kg/m2 [facility] Systolic blood pressure 2021-08-18 15:00:00 158 mm[Hg] [facility] Diastolic blood pressure 2021-08-18 15:00:00 90 mm[Hg] [facility] Heart rate 2021-08-18 15:00:00 75 /min [facility] Respiratory rate 2021-08-18 15:00:00 20 /min [facility] Oxygen saturation in Arterial blood by Pulse oximetry 2021-08-18 15:00:00 100 /min [facility] Body temperature 2021-08-18 14:35:00 37.33 [place] [facility] Body height 2021-08-16 14:15:00 182.9 cm [facility] Body weight 2021-08-16 14:15:00 204.119 kg [facility] BMI 2021-08-16 14:15:00 61.03 kg/m2 [facility] Systolic blood pressure 2021-08-18 15:00:00 158 mm[Hg[facility] Diastolic blood pressure 2021-08-18 15:00:00 90 mm[Hg[facility] Heart rate 2021-08-18 15:00:00 75 /min [facility] Respiratory rate 2021-08-18 15:00:00 20 /min [facility] Oxygen saturation in Arterial blood by Pulse oximetry 2021-08-18 15:00:00 100 /min [facility] Body temperature 2021-08-18 14:35:00 37.33 [place] [facility] Body height 2021-08-16 14:15:00 182.9 cm [facility] Body weight 2021-08-16 14:15:00 204.119 kg [facility] BMI 2021-08-16 14:15:00 61.03 kg/m2 [facility] Procedures Procedure Date / Time Performed Performing Clinician Source ED JOINT ASPIRATION/INJECTION 2023-11-16 23:28:08 Brenna Manzano [facility] XR ELBOW >3 VW LEFT 2023-11-16 22:36:04 Brenna Manzano [facility] CONSENT/REFUSAL FOR DIAGNOSI S AND TREATMENT 2023-11-16 21:59:25 Doctor Unassigned, Fritch [facility] BLOOD CULTURE SCREEN 2023-08-19 21:46:00 Stacie Moss [facility] BLOOD CULTURE SCREEN 2023-08-19 21:30:00 Stacie Moss [facility] COMP. METABOLIC PANEL ([id number]) 2023-08-19 20:50:00 Stacie Moss [facility] CBC WITH DIFF 2023-08-19 20:50:00 Stacie Moss [facility] ASSIGNMENT OF BENEFITS 2023-08-19 20:14:54 Doctor Unassigned, Fritch [facility] US LOWER EXTREMITY VEIN WITH COMPRESSION LEFT (ONLY FOR RULE OUT DVT) 2023-08-19 20:06:20 Stacie Moss [facility] CONSENT/REFUSAL FOR DIAGNOSI S AND TREATMENT 2023-08-19 18:33:06 Doctor Unassigned, Fritch [facility] HB CREATININE SERUM/BLOOD FO R IMAGING 2023-08-14 17:49:00 Liliane Galicia [facility] ASSIGNMENT OF BENEFITS 2023-08-14 17:20:00 Doctor Unassigned, Fritch [facility] PHACOEMULSIFICATION OF CATARACT WITH INTRAOCULAR LENS IMPLANT 2021-11-04 15:35:00 Christal Joshua [facility] COVID-19 (ID NOW RAPID TESTING) 2021-11-02 14:19:00 Christal Joshua [facility] LAB ONLY COVID INTERPRETATION 2021-11-02 14:19:00 Christal Joshua [facility] ASSIGNMENT OF BENEFITS 2021-10-29 16:45:12 Doctor Unassigned, Fritch [facility] COLONOSCOPY 2021-08-18 13:44:00 Aman Ardon [facility] COLONOSCOPY (ENDO) 2021-08-18 13:37:11 Quirino Talbot [facility] COLONOSCOPY (ENDO) 2021-08-18 13:37:11 Quirino Talbot [facility] COVID-19 (ID NOW RAPID TESTING) 2021-08-16 15:46:00 Aman Ardon [facility] ASSIGNMENT OF BENEFITS 2021-08-16 15:36:54 Doctor Unassigned, Fritch [facility] EXTERNAL PROVIDER RECORDS 2021-07-21 05:01:00 Doctor Unassigned, Fritch [facility] EXTERNAL PROVIDER RECORDS 2021-07-21 05:01:00 Doctor Unassigned, Fritch [facility] Encounters Start Date/Time End Date/Time Encounter Type Admission Type Attending [facility] Facility Care Department Encounter ID Source 2024-02-07 05:27:00 2024-02-07 05:27:00 Outpatient MILVIA Casey Alberts [facility] [id number] 11 [facility] 2023-11-16 16:07:00 2023-11-16 17:56:00 Emergency X BRENNA MANZANO [facility] ERT [id number] [facility] 2023-11-16 16:07:00 2023-11-16 17:56:00 Emergency Brenna Manzano [facility] 1.2840.114 350.1.13.10 4.2.7.2.686 [id number] [facility] 2023-08-19 13:44:00 2023-08-19 19:23:00 Emergency X STACIE MOSS [facility] ERT [id number] [facility] 2023-08-19 13:44:00 2023-08-19 19:23:00 Emergency AuStacie giraldo [facility] 1.840.114 350.1.13.10 4.2.7.2.686 [id number] [facility] 2023-08-14 12:21:57 2023-08-14 23:59:00 Outpatient R LILIANE GALICIA [facility] [id number] [facility] 2023-08-14 12:21:57 2023-08-14 23:59:00 Hospital Encounter Liliane Galicia [facility] 1.0.114 350.1.13.10 4.2.7.2.686 [id number] [facility] 2023-08-14 00:00:00 2023-08-14 00:00:00 Orders Only Doctor Unassigned, Fritch [facility] 1..114 350.1.13.10 4.2.7.2.686 [id number] [facility] 2021-11-04 10:24:00 2021-11-04 11:00:00 Surgery Christal Joshua [facility] 1.20.114 350.1.13.10 4.2.7.2.686 [id number] [facility] 2021-11-04 08:47:00 2021-11-04 10:45:00 Hospital Encounter Christal Joshua [facility] 1.114 350.1.13.10 4.2.7.2.686 [id number] [facility] 2021-11-04 08:47:00 2021-11-04 10:45:00 Outpatient CHRISTAL WALLIS [facility] OPH [id number] [facility] 2021-11-02 08:00:00 2021-11-02 08:15:00 Laboratory Only Only, Adc Test Christal Joshua 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, [facility] Lab Main Christal Joshua [facility] 1.114 350.1.13.10 4.2.7.2.686 [id number] [facility] 2021-10-29 11:00:00 2021-10-29 11:00:00 Outpatient CHRISTAL WALLIS [facility] [id number] [facility] 2021-10-29 00:00:00 2021-10-29 00:00:00 Orders Only Doctor Unassigned, Fritch [facility] 1.114 350.1.13.10 4.2.7.2.686 [id number] [facility] 2021-10-28 15:45:00 2021-10-28 15:45:00 Outpatient R CHRISTAL JOSHUA [facility] [id number] [facility] 2021-08-18 07:25:00 2021-08-18 10:08:00 Hospital Encounter Aman Rojas Joseline [facility] 1.840.114 350.1.13.10 4.2.7.2.686 [id number] [facility] 2021-08-18 07:25:00 2021-08-18 10:08:00 Outpatient R MANJU Elena [facility] [id number] [facility] 2021-08-18 09:24:00 2021-08-18 10:01:00 Surgery Shyannhome elena Aman Trevizo [facility] 1.840.114 350.1.13.10 4.2.7.2.686 [id number] [facility] 2021-08-16 11:30:00 2021-08-16 11:30:00 Outpatient R MANJU Elena MANDOKenya [facility] [id number] [facility] 2021-08-16 10:43:57 2021-08-16 10:58:57 Laboratory Only Only, Adc Test Mando Rojaskenya Trevizo [facility] 1.840.114 350.1.13.10 4.2.7.2.686 [id number] [facility] 2021-08-16 00:00:00 2021-08-16 00:00:00 Orders Only Doctor Unassigned, Fritch [facility] 1.840.114 350.1.13.10 4.2.7.2.686 [id number] [facility] Results Test Description Test Time Test Comments Results Result Co mments Source - XR CHEST 1 [id number] 14:00:00 [facility] : 1960 Sex: M FAX: Casey Alberts MD [place]: St: [facility] FAX: Jimi Rivera [phone] Name: ERENDIRA FRANZ [facility] : 1960 Age/S: 63/M [address] [place] [address] Unit #: [id number] Loc: [place] [address] 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 CHEST, FRONTAL VIEW HISTORY: Post PM/ICD FINDINGS: Since 02/06/24, intervalplacement of a dual-lead left pacemaker the region right atrium and right ventricle. No pleural effusion or pneumothorax. Cardiomegaly with pulmonary edema. The bones are unremarkable. IMPRESSION: Interval placement of a dual-lead left pacemaker without a pneumothorax or pleural effusion. Cardiomegaly with mild pulmonary edema. at 1400 Reported and signed by: Adelaida English M.D. CC: Casey Alberts MD; Jimi Rivera Technologist: RT Madison(R) Trnscrd Date/Time/By: 02/07/2024 (1400) : By: [email or web address] Print D/T: S: 02/07/2024 (6230) PAGE 1 Signed ReportGLUCOSE [id number] 07:39:00* Test Item Value Reference Range Interpretation Comme nts GLUCOSE BEDSIDE (test code = GLUBED) 118 MG/DL 70-110 H Performed by nate mcmanus at [facility] - XR CHEST 2 [id number] 15:47:00 [facility] ERENDIRA FRANZ : 1960 Sex: M FAX: Casey Alberts MD [place]: St: PRE Name: ERENDIRA FRANZ [facility] : 1960 Age/S: 63/M [address] [place] [address] Unit #: [id number] Loc: [place] [address] Phys: Casey Alberts MD Acct: [id number] Dis Date: Status: PRE [facility] PHONE #: [phone] Exam Date: 02/06/2024 1310 FAX #: [phone] Reason: PRE OP EXAMS: CPT CODE: [id number] XR CHEST 2 V 83143 Location code: B2 HISTORY: Preop TECHNIQUE: Frontal and lateral views of the chest were obtained. FINDINGS: The cardiomediastinal silhouette is unremarkable. The trachea is midline. The lungs are clear. There is no effusion or pneumothorax. The bones are intact. IMPRESSION: No acute pulmonary process. at 1547 Reported and signed by: Junaid Guadalupe M.D. CC: Casey Alberts MD Technologist: RT Nava([place]) Trnscrd Date/Time/By: 02/06/2024 (2966) : By: [email or web address] Orig Print D/T: S: 02/06/2024 (1891) PAGE 1 Signed ReportPROTHROMBIN [id number] 13:51:00* Test Item Value Reference Range Interpretation [...] Infarction (to prevent recurrent infarct). BASIC METABOLIC [id number] 13:49:00* Test Item Value Reference Range Interpretation [...] calculation forGFR is based on the CKD-EPI (202) calculation. This formulais race indifferent and is the recommended formula for GFRby the National Kidney Foundation for Adults.The GFR will not calculate if the sex is unknown or if thepatient's age is <18 years. CREATININE (test code = CREAT) 0.9 mg/dL 0.6-1.3 N CALCIUM (test code = CA) 9.0 mg/dL 8.0-10.5 N CBC W/AUTO [id number] 13:39:00* Test Item Value Reference Range Interpretation [...] 3/uL 0.0-0.1 N XR ELBOW >3 VW [id number] 22:55:20ORDERING PHYSICIAN: TYRESE MANZANO HISTORY: left elbow [...] would becompatible with the history of a bursitis.[facility] POCT [id number] 18:10:14* Test Item Value Reference Range Interpretation Comme nts POCT Creatinine (test code = 7459648941) 1.1 mg/dL 0.6-1.3 Lab Interpretation (test cod e = 79666-1) Normal [facility] Notes Date/Time Note Provider Source 2024-02-07 15:01:00 [id number] WvShcDHTJmSGLD HFWzVExfs7vkCBO/DWLVeB6q3u6hUz1plj c/+BHDPK1305-91-90Y55:01:648638-34 [address] [address] PATIENT NAME: ERENDIRA FRANZ ADMIT DATE: 02/07/24ACCOUNT NO: [id number] ROOM NO: AGE: 63 REPORT TYPE: OPERATIVE REPORT SEX: M ADMITTING PHYSICIAN: ATTENDING PHYSICIAN:Casey Alberts MD OPERATION DATE: 02/07/2024 .NET PROGRAMMER: Casey Alberts M.D. PREOPERATIVE DIAGNOSES:1. Sick sinus [...] Follow up in EP clinic. PACEMAKER SYSTEM: [employer] pacemaker system. RA lead 3.2 millivolts, 1.0 volt at 0.40 milliseconds, 620 ohms, model #7841,serial #[id number].RV lead, 9.5 millivolts, 0.6 volts at 0.40 milliseconds, 811 ohms. Model #7842,serial #[id number].PACEMAKER GENERATOR: Model #L331, serial #[id number], mode DDDR. Dictated By: Casey Alberts MD Date Dictated: 02/07/2024 15:01:18Date Transcribed: 02/07/2024 16:05:57HG/CHAJob #: [id number] ID: [id number] and Edited by Casey Alberts MD On 02/27/24 8:07:43 PM at 0809 PATIENT NAME: ERENDIRA FRANZ gemjev8293-28-30D40:05:00G.VOR1043 0320-0269AVAvailable for patient shkzEMLNLSEMFNCUDT6375-66-54K20:10 :15 [facility] 2024-02-06 13:15:00 [id number]/jU pYSJB0gsYSOF/H WCRpQKqXV82wGgLUpRN1jhhZadTbn0Kf2/ o4YA1J8w3731-54-85O21:15:843258-[address] [place] [address] PATIENT NAME: ERENDIRA FRANZ ADMIT DATE: ACCOUNT NO: [id number] ROOM NO: AGE: 63 REPORT TYPE: eELECTROCARDIOGRAM REPORT SEX: M ADMITTING PHYSICIAN: ATTENDING PHYSICIAN:Casey Alberts MD Order:[id number] Reason : PREOP Test Date/Time Stamp:MonFeb 06 [...] at 1429 PATIENT NAME: ERENDIRA FRANZ .C [id number] for patient kzzjKCBCMUJPHEOYIB4531-53-19Q60:29 :28 [facility] 2023-11-16 17:55:18 2752-97-87F92:55:18F ormatting of this note might be different from the original.Pt given printed and verbal discharge instructions regarding [...] with steady gait, in no apparent distress, 33807-2Uykjpfzhl department UmkxBN5148-97-84O28:56:21Emergency department NoteTXT1.2.840.982901.1.13.104.2.7 .2.971565|[id number] for patient snvd64662-5NrixJEOSIOZQBVMOogweshs d C-CDA narrative [id number] M Felix RNUT[id number] 33WOBXZTHXMRAYWYMNXPKYSJ0129-94-86 T17:56:211.2.840.370467.1.72.3.15| 1.2.840.670707.1.13.104.2.7.2.7278 [id number] Katie Ag RN [facility] 2023-11-16 16:40:47 1860-52-30M81:40:47F ormatting of this note might be different from the original.LET applied to left elbow 66067-6Jvvvdcrsw department UedlDY8283-00-41V59:41:00[facility] department NoteTXT1.2.840.171416.1.13.104.2.7 .2.455230|[id number] for patient nvxv59404-4CsuoAZEFYAKFTNVOltsnyaw d C-CDA narrative text[id number] 97CYPXNGROWBRZRIILWKEDHE3127-90-85 T16:41:001.2.840.804124.1.72.3.15| 1.2.840.310203.1.13.104.2.7.2.7278 [id number] [facility] 2023-11-16 16:04:57 8230-89-39G23:04:57F ormatting of this note might be different from the original.Diagnosed with bursitis today by 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 Sent by them to ER to "have it drained". 08959-2Xqpyyzwfe department Triage nvlrUS1930-22-52C82:06:01[facility] Triage noteTXT1.2.840.492391.1.13.104.2.7 .2.715564|[id number] for patient ajos37026-9Jvebafoom department NoteLNNARRATIVEFormatted C-CDA narrative [id number] Fief RN[address]vdG[id number] 89YYWEEWWDWNJLWDTGQBDCIN8782-01-40 T16:06:011.2.840.305585.1.72.3.15| 1.2.840.191521.1.13.104.2.7.2.7278 [id number] Haven Alicea RN [facility]
[2024-05-12] MEDS ORDERED: MORPHINE 4 MG/ML SYR ONE (17:34)
[2024-05-12] MEDS ORDERED: ONDANSETRON 4 MG/2 ML VIAL ONE (17:34)
[2024-05-12] MEDS ORDERED: ASPIRIN 81 MG CHEWABLE TABLET ONE (17:35)
[2024-05-12] MEDS ORDERED: CLOPIDOGREL 75 MG TABLET ONE (17:44)
[2024-05-12] MEDS ORDERED: TENECTEPLASE 50 MG/10 ML VIAL IV ONE (17:45)
[2024-05-12] MEDS ORDERED: HEPARIN 5000 UNIT/ML 1 ML VIAL ONE (17:45)
[2024-05-12] MEDS ORDERED: HEPARIN/D5W 25,000 UNIT/500 ML BAG IV ONE (17:45)
[2024-05-12 18:01] LABS: Absolute Basophils 0.1 K/uL (0-0.5); Absolute Eosinophils 0.1 K/uL (0-0.5); Absolute Lymphocytes (CBC) 1.3 K/uL (0.7-4.9); Absolute Monocytes 0.6 K/uL (0.1-1.3); Absolute Neutrophil 5.9 K/uL (1.8-8.0); Basophils % 0.8 % (0-1.3); Eosinophils % 0.9 % (0-4.4); Hematocrit 45.4 % (39.6-49.0); Hemoglobin 15.1 g/dL (13.6-17.9); Lymphocytes % 16.6 % (15.3-44.8); MCH 30.6 pg (27.0-35.0); MCHC 33.2 g/dL (32.0-36.0); MCV 92.3 fL (80-100); MPV 8.2 fL (7.6-11.3); Monocytes % 7.4 % (3.3-12.3); Neutrophils % 74.3 % (41.7-73.7); Platelets 269 thou/uL (152-406); RBC Red Blood Cell Count 4.93 M/uL (4.33-5.43); Red Cell Distribution Width 14.1 % (12.1-15.2)
--- NOTE | 2024-05-12 18:03 | RAD REPORT ---
EXAM DESCRIPTION: RAD - Chest Single View - 05/12/2024 5:49 pm CLINICAL HISTORY: CHEST PAIN COMPARISON: Chest Single View dated 03/12/2024; Chest Single View dated 01/20/2024; Chest Single View d ated 01/17/2024; Chest Single View dated 11/12/2023 FINDINGS: Lines: Pacemaker. Lungs: No evidence of edema or pneumonia. Pleural: No significant pleural effusions or pneumothorax. Cardiac: The heart size is within normal limits. Mediastinum: Within normal limits. Bones: No acute fractures. Other: None IMPRESSION: No acute cardiopulmonary disease.
[2024-05-12 18:11] LABS: PT Prothrombin Time 12.5 SECONDS (9.4-12.5); Protime INR 1.14
[2024-05-12 18:24] LABS: ALT/SGPT 22 U/L (16-61); Albumin 3.9 g/dL (3.4-5.0); Albumin/Globulin Ratio 0.9 (1.1-1.8); Alkaline Phosphatase 84 U/L (45-117); Anion Gap 10.6 mEq/L (5.0-15.0); BUN Blood Urea Nitrogen 20 mg/dL (7-18); Bicarbonate 24 mEq/L (21-32); Bilirubin Total 0.6 mg/dL (0.2-1.0); Globulin 4.3 g/dL (2.3-3.5); Glomerular Filtration Rate 84 ml/min (=/>90); Glucose Level 99 mg/dL (74-106); NT PRO-BNP 183 pg/mL (<125); Potassium 3.6 mEq/L (3.5-5.1); Protein, Total 8.2 g/dL (6.4-8.2); Sodium Level 134 mEq/L (136-145)
[2024-05-12 18:28] LABS: AST/SGOT < 10 U/L (15-37); Bilirubin Direct < 0.2 mg/dL (0-0.2); Bilirubin Indirect, Calculated 0.4 mg/dL (0.2-0.8)
--- NOTE | 2024-05-12 18:28 | EDPHYS ---
Physician Documentation [facility] Name: Grupo Mcdonald Jr Age: 63 yrs Sex: Male : 1960 Arrival Date: 05/12/2024 Time: 17:00 Bed 19 Private MD: ED Physician Rommel Gracia HPI: 05/12 17:30 This 63 yrs old Male presents to ER via Ambulatory with complaints of Pacemaker issue, cp Chest Pain. 17:30 The patient or guardian reports chest pain that is located primarily in the anterior cp chest wall, left. Onset: 1 hour(s) ago. The pain does not radiate. Associated signs and symptoms: Pertinent negatives: abdominal pain, diaphoresis, lower extremity pain, lower extremity swelling, shortness of breath, vomiting. The chest pain is described as a pressure, burning. Duration: The patient or guardian reports a single episode, that is still ongoing, and unchanged. 17:30 Severity of pain: in the emergency department the pain is a 8 / 10. cp Historical: - Allergies: 17:15 Codeine; ll1 17:15 Vicodin; ll1 - PMHx: 17:15 asbestosis; Cellulitis; Cerebrovascular accident; Gout; Hypertension; lymphedema; ll1 Pacemaker (stroke); Pre Diabetes; Psoriatic Arthritis; stroke; - PSHx: 17:15 Appendectomy; cataracts; heart cath; knee (ca); pacemaker (ca); ll1 - Immunization history:: Adult Immunizations up to date. - Infectious Disease History:: Denies. - Social history:: Smoking status: Patient denies any tobacco usage or history of. ROS: 17:34 Constitutional: Negative for body aches, chills, fever, cp 17:34 Cardiovascular: Positive for chest pain, Negative for edema, palpitations, 17:34 Respiratory: Negative for cough, shortness of breath, wheezing, cp 17:34 Eyes: Negative for injury, pain, redness, and discharge, cp 17:34 ENT: Negative for drainage from ear(s), ear pain, sore throat, difficulty swallowing, difficulty handling secretions, 17:34 Abdomen/GI: Negative for abdominal pain, nausea, vomiting, and diarrhea, 17:34 Back: Negative for radiated pain, 17:34 Neuro: Negative for altered mental status, dizziness, headache, numbness, syncope, near syncope, weakness, 17:34 All other systems are negative, Exam: 17:38 Constitutional: The patient appears in no acute distress, alert, awake, cp non-diaphoretic, non-toxic, well developed, well nourished, morbid obesity 17:38 Head/Face: Normocephalic, atraumatic. cp 17:38 Eyes: Periorbital structures: appear normal, Conjunctiva: normal, no exudate, no injection, Sclera: no appreciated abnormality, Lids and lashes: appear normal, bilaterally, 17:38 ENT: External ear(s): are unremarkable, Nose: is normal, Mouth: Lips: moist, Oral mucosa: pink and intact, moist, Posterior pharynx: Airway: no evidence of obstruction, patent, 17:38 Chest/axilla: Inspection: normal, Palpation: is normal, no crepitus, no tenderness, 17:38 Cardiovascular: Rate: normal, Rhythm: regular, Edema: is not appreciated, JVD: is not appreciated, 17:38 Respiratory: the patient does not display signs of respiratory distress, Respirations: cp normal, no use of accessory muscles, no retractions, labored breathing, is not present, Breath sounds: are clear throughout, no decreased breath sounds, no stridor, no wheezing, 17:38 Abdomen/GI: Inspection: obese Palpation: abdomen is soft and non-tender, in all quadrants, 17:38 Neuro: Orientation: to person, place \T\ time. Mentation: is normal, Motor: moves all fours, strength is normal, Sensation: is normal, Vital Signs: 17:13 BP 139 / 75; Pulse 86; Resp 18; Temp 97.9; Pulse Ox 96% ; Weight 179.17 kg; Height 6 ll1 ft. 0 in. ; Pain 5/10; 17:30 BP 163 / 89; Pulse 89; Resp 20; Pulse Ox 98% on R/A; mb9 17:45 BP 179 / 83; Pulse 94; Resp 18; Pulse Ox 100% on R/A; mb9 18:00 BP 164 / 83; Pulse 89; Resp 18; Pulse Ox 100% ; mb9 18:29 BP 164 / 88; Pulse 84; Resp 18; Pulse Ox 100% on R/A; mb9 17:13 Body Mass Index 53.57 (179.17 kg, 182.88 cm) ll1 17:13 Pain Scale: Adult ll1 MDM: 17:20 Patient medically screened. 18:30 Data reviewed: vital signs, nurses notes, EKG, I have discussed the patient's cp presentation/case with the attending Emergency Department Physician; and as a result, I will transfer patient. 18:30 Management of patient was discussed with the following: Photographs Curator: DR Yan, cp cardiology, who recommends transfer of patient. 05/12 17:23 Order name: Basic Metabolic Panel; Complete Time: 17:09 cp / 17:09 Interpretation: Normal except: NA 134; BUN 20; GFR 84. / 17:23 Order name: CBC with Diff; Complete Time: 17:09 cp / 17:09 Interpretation: Normal except: ERIKA% 74.3. cp 05/12 17:23 Order name: LFT's; Complete Time: 17:09 cp 05/12 17:23 Order name: Magnesium; Complete Time: 17:09 cp 05/12 17:23 Order name: NT PRO-BNP; Complete Time: 17:09 05/13 17:09 Interpretation: Reviewed. 05/12 17:23 Order name: PT-INR; Complete Time: 17:09 cp 05/12 17:23 Order name: Troponin HS; Complete Time: 17:09 cp 05/13 17:09 Interpretation: Reviewed. 05/12 17:58 Order name: PTT, Activated Partial Thromb; Complete Time: 17:09 EDMS 05/12 17:23 Order name: XRAY Chest (1 view); Complete Time: 17:09 05/13 17:10 Interpretation: Report review. 05/12 17:23 Order name: EKG; Complete Time: 17:24 cp 05/12 17:23 Order name: Cardiac monitoring; Complete Time: 17:30 cp 05/12 17:23 Order name: EKG - Nurse/Tech; Complete Time: 17:30 cp 05/12 17:23 Order name: IV Saline Lock; Complete Time: 18:07 cp 05/12 17:23 Order name: Labs collected and sent; Complete Time: 18:07 cp 05/12 17:23 Order name: O2 Per Protocol; Complete Time: 17:30 cp 05/12 17:23 Order name: O2 Sat Monitoring; Complete Time: 17:30 cp Administered Medications: 17:43 Drug: Aspirin PO Chewable Tablet 324 mg PO once; 81 mg tablets x 4 Route: PO; mb9 18:32 Follow up: Response: No adverse reaction mb9 17:51 Drug: Clopidogrel PO 300 mg PO once Route: PO; mb9 18:32 Follow up: Response: No adverse reaction mb9 17:53 Drug: Tenecteplase IV (Administer 10 ml NS flush BEFORE and AFTER tenecteplase) 50 mg mb9 IV at calculated rate once {Co-Signature: cm10 (Mora Harris RN).} Route: IV; Rate: calculated rate; Site: right hand; 18:32 Follow up: Response: No adverse reaction; IV Status: Completed infusion mb9 17:54 Drug: Heparin (AR-Bolus with thrombolytic) - HEParin IVP 60 units/kg IVP once; Max 4000 mb9 units {Co-Signature: cm10 (Mora Harris RN).} Route: IVP; Site: right hand; 18:32 Follow up: Response: No adverse reaction mb9 17:56 Drug: Heparin (AR Drip) 12 units/kg/[place] - ([place] [address] units, D5W IV 500 ml) IV at mb9 calculated rate Per protocol; Max initial rate 1000 units/hr {Co-Signature: cm10 (Mora Harris RN).} Route: IV; Rate: calculated rate; Site: right hand; 18:32 Follow up: Response: No adverse reaction; IV Status: Infusion continued upon transfer mb9 17:57 Drug: Ondansetron IVP 4 mg IVP once; over 2 minutes Route: IVP; Site: right forearm; mb9 18:32 Follow up: Response: No adverse reaction mb9 17:58 Drug: morphine IVP or IV 4 mg IVP once over 4 mins Route: IVP; Infused Over: 4 mins; mb9 Site: right forearm; 18:32 Follow up: Response: No adverse reaction mb9 Disposition: 19:59 Co-signature as Attending Physician, Rommel Gracia MD I reviewed the patient's care rt provided by the Advanced Practice Provider and agree with the diagnosis and treatment plan. Disposition Summary: 05/12/24 18:27 Transfer Ordered Notes: Transfer Location: [facility] cp Reason: Higher level of care cp Condition: Stable cp Problem: new cp Symptoms: have improved cp Accepting Physician: DR Tyson(05/12/24 18:39) mb9 Diagnosis - Subsequent ST elevation (STEMI) myocardial infarction of unspecified site cp Discharge Instructions: - Discharge Summary Sheet mb9 Forms: - Medication Reconciliation Form cp - SBAR form mb9 Signatures: Dispatcher [employer] EDMS Jean Carlos Figueroa PA PA cp Lewis, Lynsay, RN RN ll1 Sarah, Tri Oconnor RN RN mb9 Rommel Gracia MD MD rt Mora Harris RN cm10 Corrections: (The following items were deleted from the chart) 17:59 17:43 PTT, ACTIVATED+COAG.LAB.BRZ ordered. EDMS EDMS 18:39 18:27 DR Marbella fisher mb9 05/13 17:02 05/12 17:30 The chest pain is described as burning cp cp
--- NOTE | 2024-05-12 18:28 | ER ---
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 Coronavirus screen: Client denies travel out of the [place] in the last 14 days. At this time, the client does not indicate any symptoms associated with coronavirus-19. Ebola Screen: Patient denies travel to an Ebola-affected area in the 21 days before illness onset. Initial Sepsis Screen: Does the patient meet any 2 criteria? No. Patient's initial sepsis screen is negative. Does the patient have a suspected source of infection? No. Patient's initial sepsis screen is negative. Risk Assessment: Do you want to hurt yourself or someone else? Patient reports no desire to harm self or others. Onset of symptoms was May 12, 2024. 17:13 Method Of Arrival: Ambulatory ll1 17:13 Acuity: MARTY 3 ll1 17:52 Acuity: MARTY 2 hb Historical: - Allergies: 17:15 Codeine; ll1 17:15 Vicodin; ll1 - PMHx: 17:15 asbestosis; Cellulitis; Cerebrovascular accident; Gout; Hypertension; lymphedema; ll1 Pacemaker (stroke); Pre Diabetes; Psoriatic Arthritis; stroke; - PSHx: 17:15 Appendectomy; cataracts; heart cath; knee (ca); pacemaker (ca); ll1 - Immunization history:: Adult Immunizations up to date. - Infectious Disease History:: Denies. - Social history:: Smoking status: Patient denies any tobacco usage or history of. Screenin:30 [facility] ED Fall Risk Assessment (Adult) History of falling in the last 3 months, mb9 including since admission No falls in past 3 months (0 pts) Confusion or Disorientation No (0 pts) Intoxicated or Sedated No (0 pts) Impaired Gait Yes (1 pt) Mobility Assist Device Used No (0 pt) Altered Elimination No (0 pt) Score/Fall Risk Level 3 or more points = High Risk Oriented to surroundings, Maintained a safe environment, Educated pt \T\ family on fall prevention, incl call for assistance when getting out of bed. Abuse screen: Denies threats or abuse. Nutritional screening: No deficits noted. Tuberculosis screening: No symptoms or risk factors identified. Assessment: 17:20 General: Appears uncomfortable, Behavior is cooperative. mb9 17:20 Pain: Complains of pain in chest Pain does not radiate. Pain currently is 8 out of 10 mb9 on a pain scale. Quality of pain is described as pressure, Pain began suddenly, Is continuous. Neuro: Carr Agitation-Sedation Scale (RASS): 0 - Alert and Calm Level of Consciousness is awake, alert, obeys commands, Oriented to person, place, time, situation, Appropriate for age. Neuro: Reports dizziness. Cardiovascular: Reports chest pain, shortness of breath, Heart tones S1 S2 present Patient's skin is warm and dry. Rhythm is Respiratory: Airway is patent Respiratory effort is even, unlabored, Respiratory pattern is regular, symmetrical, Breath sounds are clear bilaterally. GI: Abdomen is round distended, Bowel sounds present X 4 quads. Abd is soft and non tender X 4 quads. : No signs and/or symptoms were reported regarding the genitourinary system. EENT: No signs and/or symptoms were reported regarding the EENT system. Derm: Skin is pink, warm \T\ dry. Musculoskeletal: Range of motion: intact in all extremities. 17:45 Reassessment: No changes from previously documented assessment. Patient and/or family mb9 updated on plan of care and expected duration. Pain level reassessed. Patient is alert, oriented x 3, equal unlabored respirations, skin warm/dry/pink. 18:15 Reassessment: No changes from previously documented assessment. Patient and/or family mb9 updated on plan of care and expected duration. Pain level reassessed. Patient is alert, oriented x 3, equal unlabored respirations, skin warm/dry/pink. 18:39 Reassessment: Report given to [facility]. mb9 Vital Signs: 17:13 BP 139 / 75; Pulse 86; Resp 18; Temp 97.9; Pulse Ox 96% ; Weight 179.17 kg; Height 6 ll1 ft. 0 in. ; Pain 5/10; 17:30 BP 163 / 89; Pulse 89; Resp 20; Pulse Ox 98% on R/A; mb9 17:45 BP 179 / 83; Pulse 94; Resp 18; Pulse Ox 100% on R/A; mb9 18:00 BP 164 / 83; Pulse 89; Resp 18; Pulse Ox 100% ; mb9 18:29 BP 164 / 88; Pulse 84; Resp 18; Pulse Ox 100% on R/A; mb9 17:13 Body Mass Index 53.57 (179.17 kg, 182.88 cm) ll1 17:13 Pain Scale: Adult ll1 ED Course: 17:01 Patient arrived in ED. im 17:15 Triage completed. ll1 17:15 Arm band placed on. ll1 17:17 EKG done, by ED staff, reviewed by Jean Carlos BOSCH EKG done by DIANA Jain. mb9 17:20 Jean Carlos Figueroa PA is PHCP. cp 17:20 Rommel Gracia MD is Attending Physician. cp 17:30 Tri Smith, DIANA is Primary Nurse. mb9 17:30 Placed in gown. Bed in low position. Call light in reach. Side rails up X 1. Provided mb9 Education on: press call light if needing anything. Client placed on continuous cardiac and pulse oximetry monitoring. NIBP monitoring applied. environmental monitoring specialist on. 17:30 Door closed. Noise minimized. Warm blanket given. Pillow given. mb9 17:48 TNK consent signed by pt and DANITZA Ballard. mb9 17:51 XRAY Chest (1 view) In Process Unspecified. EDMS 17:55 Missed attempt(s): 20 gauge in right antecubital area. iw 18:00 Initial lab(s) drawn, by me, sent to lab. Inserted saline lock: 18 gauge in right hand, cm10 using aseptic technique. Blood collected. 18:07 EKG done, by ED staff, reviewed by Tri Smith RN. mb9 18:16 Inserted saline lock: 18 gauge in right antecubital area, using aseptic technique. cm10 18:16 Missed attempt(s): 20 gauge in right in left hand. antecubital area. Bleeding cm10 controlled, band aid applied, catheter tip intact. 18:28 1741 called [facility] for Transfer 1800 Dr. Tyson accepted pt. 1800 JJ Mac TC sp admin approval to [address] [place] [address] bed 6107 report number [phone] fax number [phone] called [facility] for Transfer to [facility]. 18:31 No provider procedures requiring assistance completed. Patient transferred, IV remains mb9 in place. Administered Medications: 17:43 Drug: Aspirin PO Chewable Tablet 324 mg PO once; 81 mg tablets x 4 Route: PO; mb9 18:32 Follow up: Response: No adverse reaction mb9 17:51 Drug: Clopidogrel PO 300 mg PO once Route: PO; mb9 18:32 Follow up: Response: No adverse reaction mb9 17:53 Drug: Tenecteplase IV (Administer 10 ml NS flush BEFORE and AFTER tenecteplase) 50 mg mb9 IV at calculated rate once {Co-Signature: cm10 (Mora Harris RN).} Route: IV; Rate: calculated rate; Site: right hand; 18:32 Follow up: Response: No adverse reaction; IV Status: Completed infusion mb9 17:54 Drug: Heparin (TX-Bolus with thrombolytic) - HEParin IVP 60 units/kg IVP once; Max 4000 mb9 units {Co-Signature: cm10 (Mora Harris RN).} Route: IVP; Site: right hand; 18:32 Follow up: Response: No adverse reaction mb9 17:56 Drug: Heparin ([place] Drip) 12 units/kg/[place] - ([place] [address] units, D5W IV 500 ml) IV at mb9 calculated rate Per protocol; Max initial rate 1000 units/hr {Co-Signature: cm10 (Mora Harris RN).} Route: IV; Rate: calculated rate; Site: right hand; 18:32 Follow up: Response: No adverse reaction; IV Status: Infusion continued upon transfer mb9 17:57 Drug: Ondansetron IVP 4 mg IVP once; over 2 minutes Route: IVP; Site: right forearm; mb9 18:32 Follow up: Response: No adverse reaction mb9 17:58 Drug: morphine IVP or IV 4 mg IVP once over 4 mins Route: IVP; Infused Over: 4 mins; mb9 Site: right forearm; 18:32 Follow up: Response: No adverse reaction mb9 Medication: 18:31 VIS not applicable for this client. mb9 Outcome: 18:27 ER care complete, transfer ordered by MD. fisher 18:31 Transferred by ground EMS to [facility], Transfer form completed. mb9 X-rays sent w/ patient. 18:31 Condition: stable 18:31 Instructed on the need for transfer, 18:39 Patient left the ED. mb9 Signatures: Dispatcher [employer] EDMS Matilda Aguilera Irene RN RN Jean Carlos Nicolas PA PA cp Baxter, Heather, RN RN Radha Velarde RN RN ll1 Sarah, Tri Oconnor RN RN mb9 Lashon Rosenberg Clarissa, RN RN cm10 Mora Harris RN cm10
[2024-05-13 02:14] VITALS: BP 164/88; TEMP 97.9; O2SAT 100
--- NOTE | 2024-05-13 13:03 | EKG ---
Test Date: 2024-05-12 Test Time: 18:08:02 Highballer: YULIYA MEASUREMENT RESULTS: Intervals: Rate: 89 FL: 202 QRSD: 196 QT: 448 QTc: 545 [place]: P: 60 FL: 202 QRS: -52 T: 114 INTERPRETIVE STATEMENTS: Sinus rhythm with occasional premature ventricular complexes Left axis deviation Left ventricular hypertrophy with QRS widening and repolarization abnormality Lateral infarct, age undetermined Inferior infarct, age undetermined Abnormal ECG Compared to ECG 05/12/2024 17:27:54 Ventricular premature complex(es) now present Left-axis deviation now present Left ventricular hypertrophy now present Early repolarization now present First degree AV block no longer present Electronically Signed On 05-13-24 13:02:12 CDT by Omer Yan
--- NOTE | 2024-05-13 13:04 | EKG ---
Test Date: 2024-05-12 Test Time: 18:07:11 Fur Storage Clerk: YULIYA MEASUREMENT RESULTS: Intervals: Rate: 103 TN: 200 QRSD: 196 QT: 444 QTc: 581 [place]: P: 47 TN: 200 QRS: -50 T: 114 INTERPRETIVE STATEMENTS: Sinus tachycardia with frequent premature ventricular complexes Left axis deviation Left bundle branch block Abnormal ECG Compared to ECG 05/12/2024 17:27:54 Ventricular premature complex(es) now present Left-axis deviation now present Left bundle-branch block now present Sinus rhythm no longer present First degree AV block no longer present Right-axis deviation no longer present ST (T wave) deviation no longer present Myocardial infarct finding no longer present Electronically Signed On 05-13-24 13:02:16 CDT by Omer Yan
--- NOTE | 2024-05-13 13:04 | EKG ---
Test Date: 2024-05-12 Test Time: 17:27:54 Medical Instrument Cable Fabricator: DAKOTAH MEASUREMENT RESULTS: Intervals: Rate: 89 IA: 266 QRSD: 110 QT: 380 QTc: 462 [place]: P: 42 IA: 266 QRS: 123 T: -39 INTERPRETIVE STATEMENTS: Sinus rhythm with 1st degree AV block Right axis deviation Right bundle branch block Abnormal ECG Compared to ECG 03/12/2024 12:24:01 First degree AV block now present Right-axis deviation now present ST (T wave) deviation now present Electronically Signed On 05-13-24 13:02:55 CDT by Omer Yan
== END 2024-05-12 18:39 | disposition short-term general hospital (02) ==
LOC: ER 17:00
DX: I22.9 Subsequent ST elevation (STEMI) myocardial infarction of unspecified site (principal); I21.9 Acute myocardial infarction, unspecified; I10 Essential (primary) hypertension; Z86.73 Personal history of transient ischemic attack (TIA), and cerebral infarction without residual deficits; Z95.0 Presence of cardiac pacemaker
CPT/HCPCS: 92977; 93005 ×3; 85025; 80048; 36415; 83735; 85610; 80076; 85730; 84484; 83880; 71045; 99291; J1644; J3101; J2405

== ENCOUNTER 2024-07-12 10:13 | Emergency (ER) | payer OTHER ==
[2024-07-12] MEDS ORDERED: ACETAMINOPHEN 500 MG TAB ONE (10:40)
[2024-07-12] MEDS ORDERED: LEVALBUTEROL 1.25 MG/3 ML NEB ONE ×2 (10:40→12:11)
[2024-07-12 10:56] LABS: Absolute Eosinophils 0.1 K/uL (0-0.5); Absolute Lymphocytes (CBC) 0.2 K/uL (0.7-4.9); Absolute Monocytes 0.5 K/uL (0.1-1.3); Absolute Neutrophil 5.5 K/uL (1.8-8.0); Basophils % 0.7 % (0-1.3); Hematocrit 42.9 % (39.6-49.0); Hemoglobin 13.9 g/dL (13.6-17.9); Lymphocytes % 2.9 % (15.3-44.8); MCH 30.5 pg (27.0-35.0); MCHC 32.5 g/dL (32.0-36.0); MCV 93.7 fL (80-100); MPV 8.4 fL (7.6-11.3); Monocytes % 7.7 % (3.3-12.3); Neutrophils % 87.7 % (41.7-73.7); Platelets 216 thou/uL (152-406); RBC Red Blood Cell Count 4.58 M/uL (4.33-5.43)
[2024-07-12 11:01] LABS: SARS-CoV-2 Antigen CONTROL BLUE LINE VIS/BG OK; SARS-CoV-2 Antigen Rapid Res Negative (Negative)
[2024-07-12 11:13] LABS: Anion Gap 9.1 mEq/L (5.0-15.0); Potassium 4.1 mEq/L (3.5-5.1); Troponin High Sensitivity 13.7 pg/mL (<58.9)
[2024-07-12 11:23] LABS: PT Prothrombin Time 12.5 SECONDS (9.4-12.5); PTT, Activated Partial Thromb 29.4 SECONDS (24.3-36.9); Protime INR 1.12
--- NOTE | 2024-07-12 11:30 | RAD REPORT ---
EXAM DESCRIPTION: [place] Single View07/12/2024 10:59 am CLINICAL HISTORY: Cough COMPARISON: May 2024 FINDINGS: The lungs appear clear of acute infiltrate. The heart is normal size. Pacemaker leads in place IMPRESSION: No acute abnormalities displayed
[2024-07-12 11:36] LABS: Blood Morphology Comment NOT SEEN (NOT SEEN); Platelet Estimate ADEQ; White Blood Cell Scan OK (OK)
[2024-07-12] MEDS ORDERED: NA CHLORIDE 0.9% 500 ML ONE (12:11)
--- NOTE | 2024-07-12 13:26 | EKG ---
Test Date: 2024-07-12 Test Time: 10:27:39 Refrigeration Brazer/Solderer: ZACHARY MEASUREMENT RESULTS: Intervals: Rate: 97 OK: 200 QRSD: 194 QT: 418 QTc: 530 [place]: P: OK: 200 QRS: -54 T: 110 INTERPRETIVE STATEMENTS: Sinus rhythm with occasional premature ventricular complexes Left axis deviation Left ventricular hypertrophy with QRS widening and repolarization abnormality Possible Lateral infarct, age undetermined Inferior infarct, age undetermined Abnormal ECG Compared to ECG 06/17/2024 03:51:45 Ventricular premature complex(es) now present Myocardial infarct finding still present Electronically Signed On 07-12-24 13:25:56 CDT by Noel Lopez
[2024-07-12] MEDS ORDERED: Levofloxacin 750mg IV 750 MG/150 ML BAG IV ONE (13:47)
--- NOTE | 2024-07-12 14:24 | ER ---
Nurse's Notes [facility] Name: Grupo Mcdonald Jr Age: 63 yrs Sex: Male : 1960 Arrival Date: 07/12/2024 Time: 10:13 Bed 4 Private MD: Diagnosis: Fever, unspecified;Pneumonia, unspecified organism Presentation: 07/12 10:33 Chief complaint: Patient states: chest pain, SOB since last night. Coronavirus screen: iw Client presents with at least one sign or symptom that may indicate coronavirus-19. Ebola Screen: No symptoms or risks identified at this time. Initial Sepsis Screen: Does the patient meet any 2 criteria? Temp <36.0*C (96.8*F)) or > 38.3*C (100.9*F). HR > 90 bpm. Does the patient have a suspected source of infection? No. Patient's initial sepsis screen is negative. Risk Assessment: Do you want to hurt yourself or someone else? Patient reports no desire to harm self or others. Onset of symptoms was July 11, 2024. 10:33 Acuity: MARTY 3 iw 10:33 Method Of Arrival: Wheelchair iw Triage Assessment: 12:00 General: Behavior is calm, cooperative. Pain: Denies pain. Cardiovascular: Patient's tm6 skin is warm and dry. Rhythm is regular. 15:48 General: Appears in no apparent distress. tm6 Historical: - Allergies: 10:33 Codeine; iw 10:33 Vicodin; iw - PMHx: 10:33 asbestosis; Cellulitis; Cerebrovascular accident; Gout; Hypertension; lymphedema; iw Myocardial infarction; Pre Diabetes; Psoriatic Arthritis; - PSHx: 10:33 Appendectomy; cataracts; heart cath; knee; pacemaker; iw - Immunization history:: Adult Immunizations not up to date. - Infectious Disease History:: Denies. - Family history:: not pertinent. - Hospitalizations: : Patient was recently seen at. - Social history:: Smoking status: Patient denies any tobacco usage or history of. Screenin:20 [facility] ED Fall Risk Assessment (Adult) History of falling in the last 3 months, iw including since admission Yes- single mechanical fall (1 pt) Confusion or Disorientation No (0 pts) Intoxicated or Sedated No (0 pts) Impaired Gait Yes (1 pt) Mobility Assist Device Used Yes (1 pt) Altered Elimination No (0 pt) Score/Fall Risk Level 3 or more points = High Risk Oriented to surroundings, Maintained a safe environment. Abuse screen: Denies threats or abuse. Nutritional screening: No deficits noted. Tuberculosis screening: No symptoms or risk factors identified. Assessment: 11:00 General: Appears uncomfortable, Behavior is calm, cooperative. Pain: Complains of pain iw in chest Pain does not radiate. Pain currently is 8 out of 10 on a pain scale. Quality of pain is described as pressure, Pain began 1 day ago. Is continuous. Neuro: Level of Consciousness is awake, alert, obeys commands, Oriented to person, place, time, situation, Moves all extremities. Full function. Cardiovascular: Reports chest pain, shortness of breath, Patient's skin is warm and dry. Respiratory: Respiratory effort is even, unlabored, Respiratory pattern is regular, symmetrical. Derm: Skin is intact, is healthy with good turgor. Musculoskeletal: Range of motion: intact in all extremities. 12:04 Reassessment: Patient appears in no apparent distress at this time. pt c/o dizziness. iw light headedness. 14:03 Reassessment: Patient appears in no apparent distress at this time. Patient and/or tm6 family updated on plan of care and expected duration. Pain level reassessed. Patient is alert, oriented x 3, equal unlabored respirations, skin warm/dry/pink. 14:24 Reassessment: discharge pending completion of IV antibiotics. tm6 15:17 Reassessment: Patient appears in no apparent distress at this time. pt appears to be iw sleeping , awakens easily to verbal stimuli, discharge pending antibiotic completion, 15 minutes. Vital Signs: 10:32 BP 178 / 70; Pulse 91; Resp 20 S; Temp 101.1(O); Pulse Ox 95% on R/A; Weight 171.46 kg; iw Height 6 ft. 0 in. ; Pain 7/10; 12:04 BP 146 / 67; Pulse 91; Resp 19; Temp 99.3; Pulse Ox 96% on R/A; iw 13:09 BP 157 / 71; Pulse 86; Resp 22; Pulse Ox 97% ; tm6 13:30 Temp 99(O); tm6 14:03 BP 132 / 58; Pulse 87; Resp 16; Pulse Ox 96% on R/A; tm6 15:47 BP 131 / 61; Pulse 86; Resp 20; Temp 99(O); Pulse Ox 97% on R/A; Pain 0/10; tm6 10:32 Body Mass Index 51.27 (171.46 kg, 182.88 cm) iw 10:32 Pain Scale: Adult iw 15:47 Pain Scale: Adult tm6 ED Course: 10:15 Patient arrived in ED. ra3 10:16 Albert Caputo MD is Attending Physician. rn 10:32 Ghislaine Stock, PATRICIA is Primary Nurse. iw 10:34 Triage completed. iw 10:38 Flu Sent. iw 10:38 SARS RAPID Sent. iw 10:40 Initial lab(s) drawn, by me, sent to lab. First set of blood cultures drawn by me. ap3 10:47 Inserted saline lock: 22 gauge in right hand, using aseptic technique. ap3 11:00 Patient maintains SpO2 saturation greater than 95% on room air. iw 11:00 Client placed on continuous cardiac and pulse oximetry monitoring. NIBP monitoring iw applied. horn player on. 11:01 XRAY Chest (1 view) In Process Unspecified. EDMS 12:00 Arm band placed on right wrist. tm6 12:21 Patient has correct armband on for positive identification. Bed in low position. Call iw light in reach. 15:48 No provider procedures requiring assistance completed. IV discontinued, intact, tm6 bleeding controlled, No redness/swelling at site. Pressure dressing applied. 15:52 Provided Education on: use of prescription meds. tm6 Administered Medications: 10:47 Drug: Levalbuterol Inhalation 1.25 mg Inhalation once Route: Inhalation; iw 12:46 Follow up: Response: No adverse reaction tm6 10:47 Drug: Acetaminophen PO 1000 mg PO once Route: PO; iw 12:46 Follow up: Response: No adverse reaction tm6 12:15 Drug: Levalbuterol Inhalation 1.25 mg Inhalation once Route: Inhalation; iw 12:45 Follow up: Response: No adverse reaction tm6 12:15 Drug: NS 0.9% IV 500 ml IV at bolus once Route: IV; Rate: bolus; Site: right hand; iw 12:45 Follow up: Response: No adverse reaction; IV Status: Completed infusion; IV Intake: tm6 500ml 14:04 Drug: levofloxacin IVPB 750 mg 150 ml IVPB once over 90 mins Volume: 150 ml; Route: tm6 IVPB; Infused Over: 90 mins; Site: right hand; 15:47 Follow up: Response: No adverse reaction; IV Status: Completed infusion; IV Intake: tm6 150ml 14:42 CANCELLED (Inappropriate at this time): morphineor iv 4 mg IVP once over 4 mins tm6 Medication: 12:21 VIS not applicable for this client. iw Intake: 12:45 IV: 500ml; Total: 500ml. tm6 15:47 IV: 150ml; Total: 650ml. tm6 Outcome: 14:23 Discharge ordered by MD. rn 15:49 Discharged to home ambulatory, tm6 15:49 Condition: stable 15:49 Discharge instructions given to patient, Instructed on discharge instructions, follow up and referral plans. medication usage, Demonstrated understanding of instructions, follow-up care, medications, Prescriptions given X 1, 15:53 Patient left the ED. tm6 Signatures: Dispatcher [employer] EDMS Ghislaine Stock RN RN iw Albert Caputo MD MD rn Prokisch, Amanda, RN RN ap3 Nataly Willis RN RN 6 Chanell Edgar ra3 Corrections: (The following items were deleted from the chart) 10:34 10:32 Pulse 91bpm; Resp 20bpm; Spontaneous; Temp 101.1F Oral; iw iw 10:40 10:40 Hospitalizations: No recent hospitalization is reported. patricia rn 10:47 10:32 BP 178 / 70; Pulse 91bpm; Resp 20bpm; Spontaneous; Temp 101.1F Oral; iw iw 11:04 10:32 BP 178 / 70; Pulse 91bpm; Resp 20bpm; Spontaneous; Temp 101.1F Oral; 171.46 kg; iw Height 6 ft. 0 in.; BMI: 51.2; Pain 7/10, Adult; iw
--- NOTE | 2024-07-12 14:24 | EDPHYS ---
Physician Documentation [facility] Name: Grupo Mcdonald Jr Age: 63 yrs Sex: Male : 1960 Arrival Date: 07/12/2024 Time: 10:13 Bed 4 Private MD: ED Physician Albert Caputo HPI: 07/12 10:38 This 63 yrs old Male presents to ER via Wheelchair with complaints of Chest Pain. rn 10:38 The patient or guardian reports chest pain that is located primarily in the anterior rn chest wall, left. Onset: this morning. The pain does not radiate. The chest pain is described as a pressure, sharp. Modifying factors: The symptoms are alleviated by nothing. the symptoms are aggravated by cough, deep breath. Severity of pain: At its worst the pain was moderate in the emergency department the pain has improved. Patient reports left-sided chest pain, nonradiating, associated with cough and feeling ill. Woke him up this morning, slightly improving. Reports feels feverish and chills. No hemoptysis. Patient states feels like he is getting pneumonia. Recent transfer to [place] for cardiac evaluation, did not require stent, reports 40% lesion.. Historical: - Allergies: 10:33 Codeine; iw 10:33 Vicodin; iw - PMHx: 10:33 asbestosis; Cellulitis; Cerebrovascular accident; Gout; Hypertension; lymphedema; iw Myocardial infarction; Pre Diabetes; Psoriatic Arthritis; - PSHx: 10:33 Appendectomy; cataracts; heart cath; knee; pacemaker; iw - Immunization history:: Adult Immunizations not up to date. - Infectious Disease History:: Denies. - Family history:: not pertinent. - Hospitalizations: : Patient was recently seen at. - Social history:: Smoking status: Patient denies any tobacco usage or history of. ROS: 10:40 Constitutional: Positive for subjective fever and chills Eyes: Negative for injury, rn pain, redness, and discharge, Neck: Negative for injury, pain, and swelling, Cardiovascular: Positive for left-sided chest pain Respiratory: Positive for cough and shortness of breath Abdomen/GI: Negative for abdominal pain, nausea, vomiting, diarrhea, and constipation, MS/Extremity: Negative for injury and deformity, Skin: Negative for injury, rash, and discoloration, Neuro: Positive for generalized weakness and malaise Exam: 10:40 Constitutional: This is a well developed, well nourished patient who is awake, alert, rn and in no acute distress. ENT: No stridor Cardiovascular: Regular rate and rhythm. No pulse deficits. Respiratory: Mild tachypnea, diminished at bases Abdomen/GI: Soft, nontender Skin: No cyanosis MS/ Extremity: Pulses equal, no cyanosis. Neuro: Awake and alert, GCS 15 17:30 ECG was reviewed by the Attending Physician. rn Vital Signs: 10:32 BP 178 / 70; Pulse 91; Resp 20 S; Temp 101.1(O); Pulse Ox 95% on R/A; Weight 171.46 kg; iw Height 6 ft. 0 in. ; Pain 7/10; 12:04 BP 146 / 67; Pulse 91; Resp 19; Temp 99.3; Pulse Ox 96% on R/A; iw 13:09 BP 157 / 71; Pulse 86; Resp 22; Pulse Ox 97% ; tm6 13:30 Temp 99(O); tm6 14:03 BP 132 / 58; Pulse 87; Resp 16; Pulse Ox 96% on R/A; tm6 15:47 BP 131 / 61; Pulse 86; Resp 20; Temp 99(O); Pulse Ox 97% on R/A; Pain 0/10; tm6 10:32 Body Mass Index 51.27 (171.46 kg, 182.88 cm) iw 10:32 Pain Scale: Adult iw 15:47 Pain Scale: Adult tm6 MDM: 10:16 Patient medically screened. rn 13:59 Differential diagnosis: acute myocardial infarction, acute pericarditis, anxiety, rn coronary artery disease pleurisy, pneumonia, pneumothorax. Data reviewed: vital signs, nurses notes, lab test result(s), EKG, radiologic studies, plain films, and as a result, I will discharge patient. 14:22 Counseling: I had a detailed discussion with the patient and/or guardian regarding the rn historical points, exam findings, and any diagnostic results supporting the discharge/admit diagnosis, lab results, radiology results, the need for outpatient follow up, to return to the emergency department if symptoms worsen or persist or if there are any questions or concerns that arise at home. Special discussion: I discussed with the patient/guardian in detail that at this point there is no indication for admission to the hospital. It is understood, however, that if the symptoms persist or worsen the patient needs to return immediately for re-evaluation. ED course: Clear chest x-ray, no oxygen requirement, dizziness improved with fluids. No indication for emergent admission at this time but given strict return precautions. Patient is febrile with cough, chest x-ray clear, will send home with antibiotics and return precautions.. 07/12 10:23 Order name: Basic Metabolic Panel; Complete Time: 11:34 rn 07/12 10:23 Order name: CBC with Diff; Complete Time: 11:41 rn 07/12 10:23 Order name: NT PRO-BNP; Complete Time: 11:34 rn 07/12 10:23 Order name: PT-INR; Complete Time: 11:34 rn 07/12 10:23 Order name: Troponin HS; Complete Time: 11:34 rn 07/12 10:23 Order name: SARS RAPID; Complete Time: 11:34 rn 07/12 10:23 Order name: Flu; Complete Time: 11:34 rn 07/12 10:35 Order name: Blood Culture Adult (2) rn 07/12 10:35 Order name: Lactate w/ 2H reflex if indic.; Complete Time: 11:34 rn 07/12 10:55 Order name: PTT, Activated Partial Thromb; Complete Time: 11:34 EDMS 07/12 10:59 Order name: CBC Smear Scan; Complete Time: 11:41 EDCO 07/12 10:23 Order name: XRAY Chest (1 view); Complete Time: 11:34 rn 07/12 10:23 Order name: Cardiac monitoring; Complete Time: 10:38 rn 07/12 10:23 Order name: EKG - Nurse/Tech; Complete Time: 10:38 rn 07/12 10:23 Order name: IV Saline Lock; Complete Time: 10:47 rn 07/12 10:23 Order name: Labs collected and sent; Complete Time: 10:47 rn 07/12 10:23 Order name: O2 Per Protocol; Complete Time: 10:38 rn 07/12 10:23 Order name: O2 Sat Monitoring; Complete Time: 10:38 rn 07/12 10:35 Order name: Accucheck; Complete Time: 10:47 rn 07/12 10:35 Order name: IV Saline Lock - Large Bore; Complete Time: 10:47 rn 07/12 10:35 Order name: Vital Signs; Complete Time: 10:47 rn 07/12 11:01 Order name: Labs - recollect needed: recollect blue top/ hemolyzed per Yu; eb Complete Time: 11:49 EC:30 Rate is 97 beats/min. Rhythm is regular. Left axis deviation noted. QRS is positive in rn lead I and negative in lead aVF. ID interval is normal. No Q waves. T waves are Normal. No ST changes noted. Clinical impression: NSR w/ Non-specific ST/T Changes and LBBB. Reviewed by me. Administered Medications: 10:47 Drug: Levalbuterol Inhalation 1.25 mg Inhalation once Route: Inhalation; iw 12:46 Follow up: Response: No adverse reaction tm6 10:47 Drug: Acetaminophen PO 1000 mg PO once Route: PO; iw 12:46 Follow up: Response: No adverse reaction tm6 12:15 Drug: Levalbuterol Inhalation 1.25 mg Inhalation once Route: Inhalation; iw 12:45 Follow up: Response: No adverse reaction tm6 12:15 Drug: NS 0.9% IV 500 ml IV at bolus once Route: IV; Rate: bolus; Site: right hand; iw 12:45 Follow up: Response: No adverse reaction; IV Status: Completed infusion; IV Intake: tm6 500ml 14:04 Drug: levofloxacin IVPB 750 mg 150 ml IVPB once over 90 mins Volume: 150 ml; Route: tm6 IVPB; Infused Over: 90 mins; Site: right hand; 15:47 Follow up: Response: No adverse reaction; IV Status: Completed infusion; IV Intake: tm6 150ml 14:42 CANCELLED (Inappropriate at this time): morphineor iv 4 mg IVP once over 4 mins tm6 Disposition Summary: 07/12/24 14:23 Discharge Ordered Notes: Location: Home rn Problem: new rn Symptoms: have improved rn Condition: Stable rn Diagnosis - Fever, unspecified rn - Pneumonia, unspecified organism rn Followup: rn - With: Private Physician - When: As needed - Reason: Recheck today's complaints, Re-evaluation by your physician Discharge Instructions: - Discharge Summary Sheet rn - Fever, Adult rn - Community-Acquired Pneumonia, Adult rn Forms: - Medication Reconciliation Form rn - Antibiotic phlebotomist prn - Prescription Opioid Use rn - Patient Portal Instructions rn - Leadership Thank You Letter rn Prescriptions: - levofloxacin 750 mg Oral tablet - take 1 tablet ORAL route once daily for 7 days; 7 tablet; Refills: 0, Product rn Selection Permitted Signatures: Dispatcher [employer] Ghislaine Garza, RN Albert Marino MD MD rn Botello, Elizabeth eb Masterson, Tawney, RN RN tm6 Corrections: (The following items were deleted from the chart) 10:23 10:23 BASIC METABOLIC PANEL+C.LAB.BRZ ordered. EDMS EDMS 10:23 10:23 CBC+H.LAB.BRZ ordered. EDMS EDMS 10:23 10:23 PROBNP+C.LAB.BRZ ordered. EDMS EDMS 10:23 10:23 PROTIME (+INR)+COAG.LAB.BRZ ordered. EDMS EDMS 10:23 10:23 Troponin High Sensitivity+C.LAB.BRZ ordered. EDMS EDMS 10:23 10:23 SARS-COV-2 Antigen Rapid+I.LAB.BRZ ordered. EDMS EDMS 10:23 10:23 Influenza Screen (A \T\ B)+BA.LAB.BRZ ordered. EDMS EDMS 10:23 10:23 Chest Single View+RAD.RAD.BRZ ordered. EDMS EDMS 10:35 10:35 BLOOD CULTURE*+BA.LAB.BRZ ordered. EDMS EDMS 10:35 10:35 LACTATE+C.LAB.BRZ ordered. EDMS EDMS 10:40 10:40 Hospitalizations: No recent hospitalization is reported. rn rn 10:55 10:35 PTT, ACTIVATED+COAG.LAB.BRZ ordered. EDMS EDMS 14:42 14:41 morphine IVP or IV 4 mg IVP once over 4 mins ordered. rn tm6
[2024-07-12 16:11] VITALS: TEMP 99
[2024-07-12 16:14] VITALS: BP 131/61; O2SAT 97
--- NOTE | 2024-07-15 10:01 | EKG ---
Test Date: 2024-07-14 Test Time: 09:16:46 Office Bookkeeper: MISHA MEASUREMENT RESULTS: Intervals: Rate: 70 FL: 206 QRSD: 202 QT: 456 QTc: 492 [place]: P: 40 FL: 206 QRS: -41 T: 136 INTERPRETIVE STATEMENTS: Normal sinus rhythm Left axis deviation Left ventricular hypertrophy with QRS widening and repolarization abnormality Inferior infarct, age undetermined Abnormal ECG Compared to ECG 07/12/2024 10:27:39 Ventricular premature complex(es) no longer present Myocardial infarct finding still present Electronically Signed On 07-15-24 10:00:17 CDT by Noel Lopez
== END 2024-07-12 15:53 | disposition home or self-care (01) ==
LOC: ER 10:13
DX: J18.9 Pneumonia, unspecified organism (principal); Z11.52 Encounter for screening for COVID-19; I10 Essential (primary) hypertension; Z86.73 Personal history of transient ischemic attack (TIA), and cerebral infarction without residual deficits; Z95.0 Presence of cardiac pacemaker
CPT/HCPCS: 96365; 93005; 87040; 85025; 80048; 36415; 85610; 83605; 85730; 84484; 83880; 87804 ×2; 71045; 99285; 96366; 87811; J7614 ×2; J7040

== ENCOUNTER 2024-07-14 08:19 | Emergency (ER) | payer OTHER ==
[2024-07-14] MEDS ORDERED: NA CHLORIDE 0.9% 500 ML ONE (09:15)
[2024-07-14] MEDS ORDERED: IPRATROPIUM BROM 0.5MG/2.5ML ONE (09:15)
[2024-07-14] MEDS ORDERED: ALBUTEROL 2.5 MG/3 ML NEB SOL ONE (09:15)
[2024-07-14 09:45] LABS: Absolute Lymphocytes (CBC) 0.6 K/uL (0.7-4.9); Absolute Monocytes 0.7 K/uL (0.1-1.3); Basophils % 0.9 % (0-1.3); Eosinophils % 0.8 % (0-4.4); Hematocrit 40.3 % (39.6-49.0); Hemoglobin 13.5 g/dL (13.6-17.9); Lymphocytes % 13.1 % (15.3-44.8); MCHC 33.4 g/dL (32.0-36.0); MPV 8.3 fL (7.6-11.3); Monocytes % 15.6 % (3.3-12.3); Neutrophils % 69.6 % (41.7-73.7); Platelets 190 thou/uL (152-406); RBC Red Blood Cell Count 4.34 M/uL (4.33-5.43); Red Cell Distribution Width 14.7 % (12.1-15.2)
--- NOTE | 2024-07-14 10:02 | RAD REPORT ---
EXAM DESCRIPTION: RADChest Single View07/14/2024 9:41 am CLINICAL HISTORY: SOB COMPARISON: Chest Single View dated 07/12/2024; Chest Single View dated 06/17/2024; Chest Single View dated 05/12/2024; Chest Single View dated 03/12/2024 TECHNIQUE: Portable AP view of the chest. FINDINGS: The lungs are clear. No pneumothorax or effusion. The cardiomediastinal contours are unre markable. IMPRESSION: No acute cardiopulmonary process.
[2024-07-14 10:08] LABS: Albumin 3.2 g/dL (3.4-5.0); Albumin/Globulin Ratio 0.8 (1.1-1.8); Anion Gap 7.4 mEq/L (5.0-15.0); Bilirubin Total 0.5 mg/dL (0.2-1.0); Potassium 3.4 mEq/L (3.5-5.1); Protein, Total 7.2 g/dL (6.4-8.2); Troponin High Sensitivity 21.3 pg/mL (<58.9)
--- NOTE | 2024-07-14 11:35 | ER ---
Nurse's Notes [facility] Name: Grupo Mcdonald Jr Age: 63 yrs Sex: Male : 1960 Arrival Date: 07/14/2024 Time: 08:19 Bed 20 Private MD: Diagnosis: Dyspnea, unspecified;Community Acquired Pneumonia Presentation: 07/14 08:30 Chief complaint: Bilateral ear pain, sore throat, headache, and congestion x 4-5 days, hb SOB since yesterday. On Levaquin day 3 for pneumonia. Coronavirus screen: Client presents with at least one sign or symptom that may indicate coronavirus-19. Provider contacted for isolation considerations. Ebola Screen: No symptoms or risks identified at this time. Initial Sepsis Screen: Does the patient meet any 2 criteria? No. Patient's initial sepsis screen is negative. Does the patient have a suspected source of infection? No. Patient's initial sepsis screen is negative. Risk Assessment: Do you want to hurt yourself or someone else? Patient reports no desire to harm self or others. Onset of symptoms was July 09, 2024. 08:30 Method Of Arrival: Ambulatory hb 08:30 Acuity: MARTY 3 hb Historical: - Allergies: 08:31 Codeine; hb 08:31 Vicodin; hb - PMHx: 08:31 asbestosis; Cellulitis; Cerebrovascular accident; Gout; Hypertension; lymphedema; hb Myocardial infarction; Pacemaker (stroke); Pre Diabetes; Psoriatic Arthritis; stroke; - PSHx: 08:31 Appendectomy; cataracts; heart cath; knee; pacemaker; hb - Immunization history:: Adult Immunizations up to date. - Infectious Disease History:: Denies. - Social history:: Smoking status: Patient denies any tobacco usage or history of. Screenin:28 [facility] ED Fall Risk Assessment (Adult) History of falling in the last 3 months, bp including since admission No falls in past 3 months (0 pts) Confusion or Disorientation No (0 pts) Intoxicated or Sedated No (0 pts) Impaired Gait No (0 pts) Mobility Assist Device Used Yes (1 pt) Altered Elimination No (0 pt) Score/Fall Risk Level 0 - 2 = Low Risk. Abuse screen: Denies threats or abuse. Denies injuries from another. Nutritional screening: No deficits noted. Tuberculosis screening: No symptoms or risk factors identified. Assessment: 08:45 General: Appears in no apparent distress. obese, Behavior is calm, cooperative, bp appropriate for age. Pain: Denies pain. Cardiovascular: Rhythm is sinus rhythm. Respiratory: Airway is patent Respiratory effort is labored, Breath sounds with wheezes bilaterally. GI: No signs and/or symptoms were reported involving the gastrointestinal system. 10:53 Reassessment: Patient appears in no apparent distress at this time. Patient is alert, bp oriented x 3, equal unlabored respirations, skin warm/dry/pink. Vital Signs: 08:30 BP 149 / 74; Pulse 71; Resp 17; Temp 99(O); Pulse Ox 99% on R/A; Weight 170.1 kg; hb Height 6 ft. 0 in. ; Pain 6/10; 10:53 BP 124 / 56; Pulse 74; Resp 19; Pulse Ox 100% ; bp 11:53 BP 106 / 86; Pulse 74; Resp 16; Pulse Ox 100% ; bp 08:30 Body Mass Index 50.86 (170.10 kg, 182.88 cm) hb 08:30 Pain Scale: Adult hb ED Course: 08:21 Patient arrived in ED. mr 08:27 Sienna Ling MD is Attending Physician. sd2 08:29 Jose Joseph, DIANA is Primary Nurse. bp 08:31 Triage completed. hb 08:32 Arm band placed on. hb 09:20 EKG done, by ED staff, reviewed by Sienna Ling MD. cc6 09:28 Patient has correct armband on for positive identification. bp 09:28 Initial lab(s) drawn, by fl, sent to lab. Inserted saline lock: 20 gauge in right bp antecubital area, using aseptic technique. Blood collected. 09:43 XRAY Chest (1 view) In Process Unspecified. EDMS 11:53 No provider procedures requiring assistance completed. IV discontinued, intact, bp bleeding controlled, No redness/swelling at site. Pressure dressing applied. 11:54 Provided Education on: N/A. bp Administered Medications: 08:45 CANCELLED (Physician Discretion): rocephin (ceftriaxone)1 grams IM once sd2 08:45 CANCELLED (Physician Discretion): [id number] mg PO once sd2 08:45 CANCELLED (Physician Discretion): lidocaine(2 %) 5 mg 5 ml Infiltration once; to bedsidesd2 09:27 Drug: NS 0.9% IV 500 ml IV at bolus once Route: IV; Rate: bolus; Site: right bp antecubital; :54 Follow up: IV Status: Completed infusion; IV Intake: 500ml bp 09:28 Drug: DuoNeb Nebulize (3:1) (2.5 mg - 0.5 mg) 3 ml Nebulizer once Route: Nebulizer; bp 11:54 Follow up: Response: No adverse reaction bp Intake: :54 IV: 500ml; Total: 500ml. bp Outcome: 11:34 Discharge ordered by MD. rehman 11:53 Discharged to home ambulatory, bp 11:53 Condition: stable 11:53 Discharge instructions given to patient, Instructed on discharge instructions, follow up and referral plans. medication usage, Demonstrated understanding of instructions, follow-up care, medications, Prescriptions given X 1, :54 Patient left the ED. bp Signatures: Dispatcher [employer] EDMS Tri Leblanc, Reg Reg mr Anh Fuentes, RN RN Jose Russo RN RN Sienna Rodriguez MD MD sd2 Juana Reynaga RN RN cc6
--- NOTE | 2024-07-14 11:35 | EDPHYS ---
Physician Documentation [facility] Name: Grupo Mcdonald Jr Age: 63 yrs Sex: Male : 1960 Arrival Date: 07/14/2024 Time: 08:19 Bed 20 Private MD: ED Physician Sienna Ling HPI: 07/14 08:44 This 63 yrs old Male presents to ER via Ambulatory with complaints of Shortness Of sd2 Breath, Pneumonia. 08:44 63-year-old male presents with chief complaint of shortness of breath and pneumonia.. sd2 10:19 Pt reports seen here 2 days ago and placed on abx for pneumonia which he has been sd2 compliant with but has had persistent SOB and difficulty moving around and ambulating due to the wheezing. No fevers, vomiting or diarrhea. Was not given breathing treatments to use after discharge per patient. . Historical: - Allergies: 08:31 Codeine; hb 08:31 Vicodin; hb - PMHx: 08:31 asbestosis; Cellulitis; Cerebrovascular accident; Gout; Hypertension; lymphedema; hb Myocardial infarction; Pacemaker (stroke); Pre Diabetes; Psoriatic Arthritis; stroke; - PSHx: 08:31 Appendectomy; cataracts; heart cath; knee; pacemaker; hb - Immunization history:: Adult Immunizations up to date. - Infectious Disease History:: Denies. - Social history:: Smoking status: Patient denies any tobacco usage or history of. ROS: 10:19 Constitutional: Negative for fever, chills, and weight loss, Eyes: Negative for injury, sd2 pain, redness, and discharge, Cardiovascular: Negative for chest pain, palpitations, and edema, 10:19 Abdomen/GI: Negative for abdominal pain, nausea, vomiting, diarrhea. MS/Extremity: Negative for injury and deformity, Skin: Negative for injury, rash, and discoloration, Neuro: Negative for headache, numbness and tingling. 10:19 Respiratory: Positive for cough, shortness of breath, wheezing, Negative for Exam: 10:19 Constitutional: This is a well developed, well nourished patient who is awake, alert, sd2 and in no acute distress. Head/Face: Normocephalic, atraumatic. Eyes: EOMI, normal conjunctiva bilaterally Chest/axilla: Normal chest wall appearance and motion. Nontender with no deformity. Cardiovascular: Regular rate and rhythm with a normal S1 and S2. No gallops, murmurs, or rubs. 2+ distal pulses. Respiratory: Lungs have equal breath sounds bilaterally, clear to auscultation and percussion. No rales, rhonchi or wheezes noted. No increased work of breathing, no retractions or nasal flaring. Abdomen/GI: Soft, non-tender, with normal bowel sounds. No guarding or rebound. No evidence of tenderness throughout. Skin: Warm, dry with normal turgor. Normal color with no rashes, no lesions, and no evidence of cellulitis. MS/ Extremity: Pulses equal, no cyanosis. Neurovascular intact. Full, normal range of motion. Psych: Awake, alert, with orientation to person, place and time. Behavior, mood, and affect are within normal limits. 10:19 ECG was reviewed by the Attending Physician. NSR, rate 70, LBBB, no STEMI criteria, sd2 unchanged from prior EKG Vital Signs: 08:30 BP 149 / 74; Pulse 71; Resp 17; Temp 99(O); Pulse Ox 99% on R/A; Weight 170.1 kg; hb Height 6 ft. 0 in. ; Pain 6/10; 10:53 BP 124 / 56; Pulse 74; Resp 19; Pulse Ox 100% ; bp 11:53 BP 106 / 86; Pulse 74; Resp 16; Pulse Ox 100% ; bp 08:30 Body Mass Index 50.86 (170.10 kg, 182.88 cm) hb 08:30 Pain Scale: Adult hb MDM: 08:43 Patient medically screened. sd2 10:22 Differential diagnosis: PNA, COPD, COVID, asbestosis, ACS among others. Data reviewed: sd2 vital signs, nurses notes, old medical records, Prior ER visit results reviewed. lab test result(s), EKG, radiologic studies. I considered the following discharge prescriptions or medication management in the emergency department Medications were administered in the Emergency Department. See MAR. Care significantly affected by the following chronic conditions: Hypertension. 11:32 Counseling: I had a detailed discussion with the patient and/or guardian regarding the sd2 historical points, exam findings, and any diagnostic results supporting the discharge/admit diagnosis, lab results, radiology results, the need for outpatient follow up, to return to the emergency department if symptoms worsen or persist or if there are any questions or concerns that arise at home. Response to treatment: the patient's symptoms have markedly improved after treatment. ED course: Pt feeling much improved after breathing treatment. He is comfortable with plan for discharge and outpatient follow up. CXR remains clear. Sats 100% on RA at this time. Will continue abx and prescribe inhaler. Pt to follow up with PCP tomorrow. Verbalizes understanding of strict return precautions. . 07/14 09:03 Order name: CBC with Diff; Complete Time: 10:02 sd2 07/14 09:03 Order name: CMP; Complete Time: 10:13 sd2 07/14 09:03 Order name: Magnesium; Complete Time: 10:13 sd2 07/14 09:03 Order name: Troponin High Sensitivity; Complete Time: 10:13 sd2 07/14 09:03 Order name: BNP; Complete Time: 10:13 sd2 07/14 09:03 Order name: XRAY Chest (1 view); Complete Time: 10:02 sd2 07/14 09:03 Order name: EKG - Nurse/Tech; Complete Time: 09:21 sd2 Administered Medications: 08:45 CANCELLED (Physician Discretion): rocephin (ceftriaxone)1 grams IM once sd2 08:45 CANCELLED (Physician Discretion): [id number] mg PO once sd2 08:45 CANCELLED (Physician Discretion): lidocaine(2 %) 5 mg 5 ml Infiltration once; to bedsidesd2 09:27 Drug: NS 0.9% IV 500 ml IV at bolus once Route: IV; Rate: bolus; Site: right bp antecubital; 11:54 Follow up: IV Status: Completed infusion; IV Intake: 500ml bp 09:28 Drug: DuoNeb Nebulize (3:1) (2.5 mg - 0.5 mg) 3 ml Nebulizer once Route: Nebulizer; bp 11:54 Follow up: Response: No adverse reaction bp Disposition Summary: 07/14/24 11:34 Discharge Ordered Problem: an ongoing problem sd2 Symptoms: have improved sd2 Condition: Stable sd2 Diagnosis - Dyspnea, unspecified sd2 - Community Acquired Pneumonia sd2 Followup: sd2 - With: Private Physician - When: 1 - 2 days - Reason: Recheck today's complaints, Continuance of care, Re-evaluation by your physician Discharge Instructions: - Discharge Summary Sheet sd2 - Community-Acquired Pneumonia, Adult sd2 Forms: - Medication Reconciliation Form sd2 - Antibiotic Education sd2 - Prescription Opioid Use sd2 - Patient Portal Instructions sd2 - Leadership Thank You Letter sd2 Prescriptions: - albuterol sulfate 90 mcg/actuation Inhalation HFA Aerosol Inhaler - inhale 2 puff INHALATION route every 4-6 hours As needed as needed for cough sd2 and wheezing; 1 unit; Refills: 0, Product Selection Permitted Signatures: Dispatcher [employer] EDMS Anh Fuentes, RN RN Jose Joseph RN RN bp Sienna Ling MD MD sd2 Corrections: (The following items were deleted from the chart) 08:44 08:43 Dressing - Wound ordered. sd2 sd2 08:44 08:43 Sterile Gloves ordered. sd2 sd2 08:44 08:43 Sutures, Prolene ordered. sd2 sd2 08:44 08:43 Setup Suture Tray ordered. sd2 sd2 08:45 08:43 Rocephin (cefTRIAXone) IM 1 grams IM once ordered. sd2 sd2 08:45 08:43 Doxycycline PO 100 mg PO once ordered. sd2 sd2 08:45 08:43 Lidocaine Infiltration (2 %) 5 mg 5 ml Infiltration once; to bedside ordered. sd2 2 09:23 08:43 Foot Left 3 View+RAD.RAD.BRZ ordered. EDMS EDMS
[2024-07-14 12:06] VITALS: TEMP 99
[2024-07-14 12:07] VITALS: O2SAT 100
[2024-07-14 12:09] VITALS: BP 106/86
== END 2024-07-14 11:54 | disposition home or self-care (01) ==
LOC: ER 08:19
DX: R06.00 Dyspnea, unspecified (principal); J18.9 Pneumonia, unspecified organism; I10 Essential (primary) hypertension; Z95.0 Presence of cardiac pacemaker; Z86.73 Personal history of transient ischemic attack (TIA), and cerebral infarction without residual deficits
CPT/HCPCS: 96361; 85025; 36415; 83735; 84484; 80053; 83880; 71045; 96360; 99285; J7613; J7644; J7040

== ENCOUNTER 2024-08-02 07:51 | Day surgery (SDC) | payer OTHER ==
[2024-08-02] MEDS ORDERED: Ringers Lactate 1,000 ML IV ONE (08:07)
[2024-08-02] MEDS ORDERED: LIDOCAINE 1% MPF 5 ML VIAL ONE (09:23)
[2024-08-02] MEDS ORDERED: propofoL 200 MG/20 ML VIAL IV ONE ×2 (09:23)
[2024-08-02 10:23] VITALS: BP 137/84; TEMP 98; O2SAT 98
== END 2024-08-02 10:24 | disposition home or self-care (01) ==
LOC: OR 07:51
PROVIDERS: ATTEND Surgery
PROC: 0DB78ZX Excision of Stomach, Pylorus, Via Natural or Artificial Opening Endoscopic, Diagnostic (ICD-10-PCS; 2024-08-02)
PROC: 0DB68ZX Excision of Stomach, Via Natural or Artificial Opening Endoscopic, Diagnostic (ICD-10-PCS; 2024-08-02)
PROC: 0DB28ZX Excision of Middle Esophagus, Via Natural or Artificial Opening Endoscopic, Diagnostic (ICD-10-PCS; 2024-08-02)
PROC: 0DB48ZX Excision of Esophagogastric Junction, Via Natural or Artificial Opening Endoscopic, Diagnostic (ICD-10-PCS; 2024-08-02)
PROC: 0DB98ZX Excision of Duodenum, Via Natural or Artificial Opening Endoscopic, Diagnostic (ICD-10-PCS; principal; 2024-08-02 09:45)
DX: R10.13 Epigastric pain (principal); K21.9 Gastro-esophageal reflux disease without esophagitis; K29.50 Unspecified chronic gastritis without bleeding; K44.9 Diaphragmatic hernia without obstruction or gangrene; K21.00 Gastro-esophageal reflux disease with esophagitis, without bleeding; K29.80 Duodenitis without bleeding
CPT/HCPCS: 88312; 88305; 43239; J2704 ×2; J2001; J7120

== ENCOUNTER 2024-08-25 18:28 | Emergency (ER) | payer OTHER ==
[2024-08-25] MEDS ORDERED: NA CHLORIDE 0.9% 1,000 ML ONE (18:58)
[2024-08-25] MEDS ORDERED: PANTOPRAZOLE 40 MG INJ ONE ×2 (19:08→22:15)
[2024-08-25 19:26] LABS: Absolute Basophils 0.1 K/uL (0-0.5); Absolute Eosinophils 0.1 K/uL (0-0.5); Absolute Lymphocytes (CBC) 0.9 K/uL (0.7-4.9); Absolute Monocytes 0.7 K/uL (0.1-1.3); Absolute Neutrophil 10.7 K/uL (1.8-8.0); Basophils % 0.7 % (0-1.3); Eosinophils % 0.4 % (0-4.4); Hematocrit 43.5 % (39.6-49.0); Hemoglobin 14.6 g/dL (13.6-17.9); MCH 30.9 pg (27.0-35.0); MCHC 33.6 g/dL (32.0-36.0); Monocytes % 5.7 % (3.3-12.3); Neutrophils % 86.2 % (41.7-73.7); Platelets 319 thou/uL (152-406); RBC Red Blood Cell Count 4.72 M/uL (4.33-5.43); Red Cell Distribution Width 14.3 % (12.1-15.2)
[2024-08-25 19:30] LABS: PT Prothrombin Time 13.2 SECONDS (9.4-12.5); PTT, Activated Partial Thromb 35.9 SECONDS (24.3-36.9); Protime INR 1.18
[2024-08-25 19:40] LABS: Albumin/Globulin Ratio 0.9 (1.1-1.8); Anion Gap 11.6 mEq/L (5.0-15.0); Bilirubin Total 0.6 mg/dL (0.2-1.0); Globulin 4.3 g/dL (2.3-3.5); Potassium 3.6 mEq/L (3.5-5.1); Protein, Total 8.3 g/dL (6.4-8.2)
[2024-08-25 20:28] LABS: Band Neutrophils 10 % (0-1); Blood Morphology Comment NOT SEEN (NOT SEEN); Differential Total Cells Count 100; Lymphocytes 9 % (15-42); Monocytes 6 % (0-10); Platelet Estimate ADEQ; Reactive Lymphocytes 2 %; Segmented Neutrophils 72 % (40-80)
[2024-08-25 20:41] LABS: Sqamous Epithelial <5 /HPF (None Seen); Urine Bacteria <20 /HPF (<20); Urine Microscopic Reflex YN ORDER UMIC; Urine Mucus 3+ /HPF (None Seen); Urine RBC <5 /HPF (None Seen); Urine WBC <5 /HPF (<5)
[2024-08-25 20:42] LABS: Specific Gravity > 1.030 (1.005-1.030); Urine Bilirubin NEGATIVE (Negative); Urine Blood Negative (Negative); Urine Clarity Extremely Turbid (Clear); Urine Color Yellow (Yellow); Urine Glucose NEGATIVE (Negative); Urine Ketones NEGATIVE (Negative); Urine Nitrite NEGATIVE (Negative); Urine Protein 1+ (Negative); Urine Urobilinogen 1+ (Normal); Urine pH 5.5 (5.0-7.0)
--- NOTE | 2024-08-25 21:33 | RAD REPORT ---
EXAMINATION: CT Abdomen Pelvis W Contrast CLINICAL INDICATION: Male, 64 years old. ABD PAIN TECHNIQUE: CT abdomen and pelvis was performed, after the administration of IV contrast, as per depar tment protocol. Axial, sagittal and coronal reconstructions were obtained. One or more of the following dose reduction techniques were used: Automated exposure control, adjustment of the mA and k V according to patient size, and iterative reconstruction. Unless otherwise specified, incidental findings do not require dedicated imaging follow-up. COMPARISON: No prior exam. FINDINGS: LOWER CHEST: The visualized lung bases are clear. LIVER: Normal in size and contour. No focal lesion. BILIARY SYSTEM: No suspicious abnormalities. SPLEEN: Normal size. No focal lesion. PANCREAS: No mass, ductal dilation, or jose r-pancreatic fluid. ADRENALS: Normal; no mass. KIDNEYS: Normal size and contour. No hydronephrosis. URINARY BLADDER: Decompressed, limiting evaluation. GASTROINTESTINAL TRACT: Fluid opacification throughout the mid to distal small bowel and most of the large bowel. Mild distal colonic diverticulosis. Mild small bowel caliber distention with air-fluid levels, with gradual tapering distally. No evidence of free air, significant intra-abdominal free flu id, bowel obstruction or abscess. APPENDIX: Appendix not visualized, but no inflammatory changes in region of appendix. LYMPH NODES: No lymphadenopathy. MUSCULOSKELETAL: No acute or suspicious osseous abnormality. ADDITIONAL FINDINGS: None. IMPRESSION: Fluid-filled mid to distal small bowel and most of the large bowel, mild caliber distention of the pr oximal small bowel. Findings may reflect enterocolitis, with or without small bowel ileus. Mild distal colonic diverticulosis.
--- NOTE | 2024-08-25 21:46 | EDPHYS ---
Physician Documentation [facility] Name: Grupo Mcdonald Jr Age: 64 yrs Sex: Male : 1960 Arrival Date: 08/25/2024 Time: 18:28 Bed 6 Private MD: ED Physician Addy Resendiz HPI: 08/25 18:48 This 64 yrs old Male presents to ER via Ambulatory with complaints of Vomiting - blood, sp3 Dizziness, Shortness Of Breath, Abdominal Pain. 18:48 64-year-old male with history of asbestosis, hypertension, prediabetes, recent DVT sp3 currently on Eliquis presents to the ED with epigastric pain and coffee-ground emesis x 1 day with several episodes of vomiting. Patient had an endoscopy performed by Dr. Mix approximately 4 to 5 weeks ago where several ulcers and areas of erosion were found. Patient denies any diarrhea, lower abdominal pain, back pain, syncope, near syncope, chest pain, shortness of breath, fever or any other signs or symptoms on ROS at this time.. Historical: - Allergies: 19:48 Codeine; al5 19:48 Vicodin; al5 - PMHx: 19:48 asbestosis; Cellulitis; Cerebrovascular accident; Gout; Hypertension; lymphedema; al5 stroke; Psoriatic Arthritis; Pre Diabetes; Pacemaker (stroke); Myocardial infarction; - PSHx: 19:48 Appendectomy; cataracts; heart cath; knee; pacemaker; al5 - Immunization history:: Adult Immunizations up to date. - Infectious Disease History:: Denies. - Social history:: Smoking status: unknown. ROS: 18:49 Constitutional: Negative for fever, chills, and weight loss, Eyes: Negative for injury, sp3 pain, redness, and discharge, ENT: Negative for injury, pain, and discharge, Neck: Negative for injury, pain, and swelling, Cardiovascular: Negative for chest pain, palpitations, and edema, Respiratory: Negative for shortness of breath, cough, wheezing, and pleuritic chest pain, Back: Negative for injury and pain, MS/Extremity: Negative for injury and deformity, Skin: Negative for injury, rash, and discoloration, Neuro: Negative for headache, weakness, numbness, tingling, and seizure, Psych: Negative for depression, anxiety, suicide ideation, homicidal ideation, and hallucinations, Allergy/Immunology: Negative for hives, rash, and allergies, Endocrine: Negative for neck swelling, polydipsia, polyuria, polyphagia, and marked weight changes, Hematologic/Lymphatic: Negative for swollen nodes, abnormal bleeding, and unusual bruising, 18:49 All other systems are negative, Exam: 18:49 Constitutional: This is a well developed, well nourished patient who is awake, alert, sp3 and in no acute distress. Head/Face: Normocephalic, atraumatic. Eyes: Pupils equal round and reactive to light, extra-ocular motions intact. Lids and lashes normal. Conjunctiva and sclera are non-icteric and not injected. Cornea within normal limits. Periorbital areas with no swelling, redness, or edema. ENT: Nares patent. No nasal discharge, no septal abnormalities noted. External auditory canals are clear. Oropharynx with no redness, swelling, or masses, exudates, or evidence of obstruction, uvula midline. Mucous membranes moist. Neck: Trachea midline, no thyromegaly or masses palpated, and no cervical lymphadenopathy. Supple, full range of motion without nuchal rigidity, or vertebral point tenderness. No Meningismus. Chest/axilla: Normal chest wall appearance and motion. Nontender with no deformity. No lesions are appreciated. Cardiovascular: Regular rate and rhythm with a normal S1 and S2. No gallops, murmurs, or rubs. Normal PMI, no JVD. No pulse deficits. Respiratory: Lungs have equal breath sounds bilaterally, clear to auscultation and percussion. No rales, rhonchi or wheezes noted. No increased work of breathing, no retractions or nasal flaring. Back: No spinal tenderness. No costovertebral tenderness. Full range of motion. Skin: Warm, dry with normal turgor. Normal color with no rashes, no lesions, and no evidence of cellulitis. MS/ Extremity: Pulses equal, no cyanosis. Neurovascular intact. Full, normal range of motion. Neuro: Awake and alert, GCS 15, oriented to person, place, time, and situation. Cranial nerves II-XII grossly intact. Motor strength 5/5 in all extremities. Sensory grossly intact. Cerebellar exam normal. Normal gait. Psych: Awake, alert, with orientation to person, place and time. Behavior, mood, and affect are within normal limits. 18:49 Abdomen/GI: Pain to palpation epigastric region without peritoneal signs, rebound or guarding., Vital Signs: 18:47 BP 137 / 82; Pulse 85; Resp 16; Temp 97.9(O); Pulse Ox 98% on R/A; Weight 170.1 kg; hb Height 6 ft. 0 in. ; Pain 8/10; 19:15 BP 160 / 98; Pulse 79; Resp 18; Pulse Ox 96% on R/A; al5 20:00 BP 147 / 74; Pulse 79; Resp 19; Pulse Ox 98% on R/A; al5 20:15 BP 117 / 82; Pulse 80; Resp 19; Pulse Ox 99% on R/A; al5 20:30 BP 165 / 89; Pulse 82; Resp 14; Pulse Ox 97% on R/A; al5 21:00 BP 143 / 78; Pulse 83; Resp 19; Pulse Ox 96% on R/A; al5 21:30 BP 150 / 89; Pulse 84; Resp 20; Pulse Ox 97% on R/A; al5 22:00 BP 148 / 96; Pulse 90; Resp 20; Pulse Ox 99% on R/A; al5 22:30 BP 154 / 86; Pulse 87; Resp 17; Pulse Ox 97% on R/A; al5 23:00 BP 161 / 81; Pulse 84; Resp 19; Pulse Ox 98% on R/A; al5 23:30 BP 157 / 95; Pulse 83; Resp 14; Pulse Ox 98% on R/A; al5 08/26 00:00 BP 158 / 86; Pulse 81; Resp 18; Pulse Ox 97% on R/A; al5 00:30 BP 156 / 88; Pulse 81; Resp 18; Pulse Ox 97% on R/A; al5 08/25 18:47 Body Mass Index 50.86 (170.10 kg, 182.88 cm) hb 08/25 18:47 Pain Scale: Adult hb MDM: 08/25 18:45 Patient medically screened. sp3 18:50 Data reviewed: vital signs, nurses notes, lab test result(s), EKG, radiologic studies. sp3 ED course: 64-year-old male with complex history currently on Eliquis with known gastric ulcers now presents with coffee-ground emesis and epigastric abdominal pain. Differential diagnosis includes ruptured viscus, peptic ulcer disease, gastritis, upper GI bleed, esophagitis, among others. I am not highly suspicious for sepsis, shock, acute coronary syndrome, vascular compromise or any other critical process. Workup will include CT scan of the abdomen pelvis with IV contrast, laboratory values including type and screen and general supportive care. Patient is NPO. Patient will be signed out to nighttime physician for final reevaluation and disposition.. 19:03 ED course: Patient signed out to me with pending workup. Plan is to follow-up lab work, ec2 CT imaging. In brief patient arrives today with reported coffee-ground emesis, recent endoscopy . 19:44 ED course: Metabolic profile reassuring. Coag profile nonactionable. Lipase within ec2 normal ranges. Troponin within normal ranges. CBC shows reassuring blood counts, slight leukocytosis. Pending CT imaging. . 21:45 ED course: CT scan shows mild enterocolitis, diverticulosis. Patient will require ec2 transfer as we do not have GI on coverage today and, Dr. Mix is not available at this time . 23:04 ED course: Discussed case w/ Dr. Bauer at [facility] who agrees to accept pt for transfer. . ec2 10 18:48 Order name: CBC with Diff; Complete Time: 20:47 sp3 08/25 18:48 Order name: CMP; Complete Time: 19:43 sp3 08/25 18:48 Order name: Lipase; Complete Time: 19:43 sp3 08/25 18:48 Order name: Urinalysis w/ reflexes; Complete Time: 20:47 sp3 08/25 18:48 Order name: Troponin High Sensitivity; Complete Time: 19:43 sp3 08/25 18:48 Order name: PT-INR; Complete Time: 19:43 sp3 08/25 18:48 Order name: Ptt, Activated; Complete Time: 19:43 sp3 08/25 18:48 Order name: Type And Screen; Complete Time: 20:47 sp3 08/25 19:29 Order name: Manual Differential; Complete Time: 20:47 EDMS 08/25 20:02 Order name: ABO/RH no charge; Complete Time: 20:25 EDMS 08/25 18:48 Order name: CT Abd/Pelvis - IV Contrast Only; Complete Time: 21:40 sp3 08/25 18:48 Order name: IV Saline Lock; Complete Time: 19:14 sp3 08/25 18:48 Order name: Labs collected and sent; Complete Time: 19:14 sp3 08/25 18:48 Order name: NPO; Complete Time: 19:47 sp3 Administered Medications: 19:05 Drug: NS 0.9% IV 1000 ml IV at 1 bolus Per protocol; 1000 mL bolus Route: IV; Rate: 1 rs5 bolus; Site: right antecubital; 19:47 Drug: Pantoprazole IVP 80 mg IVP once Route: IVP; Site: right antecubital; al5 22:09 Follow up: Response: No adverse reaction al5 22:24 Drug: Pantoprazole IV 8 mg/hr IV at 25 ml/hr continuous; (Standard dilution is 80 mg in al5 250 mL NS) Route: IV; Rate: 25 ml/hr; Site: right antecubital; 08/26 00:40 Follow up: Response: No adverse reaction; IV Status: Infusion continued upon transfer al5 Disposition Summary: 08/25/24 21:45 Transfer Ordered Notes: Transfer Location: Other [facility] ec2 Reason: Higher level of care ec2 Condition: Stable ec2 Problem: an ongoing problem ec2 Symptoms: have improved ec2 Accepting Physician: transferring doc(08/26/24 00:40) al5 Diagnosis - GI Bleed/ Gastrointestinal hemorrhage, unspecified ec2 Forms: - Medication Reconciliation Form ec2 - SBAR form ec2 Signatures: Dispatcher [employer] Sunita Tristan MD MD sp3 Martir Monzon RN RN rs5 Addy Resendiz MD MD ec2 Amanda Rockwell RN RN al5 Corrections: (The following items were deleted from the chart) 08/25 18:49 18:49 CBC+H.LAB.BRZ ordered. EDMS EDMS 18:49 18:49 COMPREHENSIVE METABOLIC PANEL+C.LAB.BRZ ordered. EDMS EDMS 18:49 18:49 LIPASE+C.LAB.BRZ ordered. EDMS EDMS 18:49 18:49 Urinalysis+U.LAB.BRZ ordered. EDMS EDMS 18:49 18:49 Troponin High Sensitivity+C.LAB.BRZ ordered. EDMS EDMS 18:49 18:49 PROTIME (+INR)+COAG.LAB.BRZ ordered. EDMS EDMS 18:49 18:49 PTT, ACTIVATED+COAG.LAB.BRZ ordered. EDMS EDMS 18:49 18:49 TYPE AND SCREEN+BB.LAB.BRZ ordered. EDMS EDMS 18:49 18:49 Abdomen Pelvis W Con+CT.RAD.BRZ ordered. EDMS EDMS 08/26 00:40 08/25 21:45 transferring doc ec2 al5
--- NOTE | 2024-08-25 21:46 | ER ---
Nurse's Notes [facility] Name: Grupo Mcdonald Jr Age: 64 yrs Sex: Male : 1960 Arrival Date: 08/25/2024 Time: 18:28 Bed 6 Private MD: Diagnosis: GI Bleed/ Gastrointestinal hemorrhage, unspecified Presentation: 08/25 18:47 Chief complaint: LUQ pain and coffee ground emesis that started this afternoon. On hb Eliquis for LUE DVT. Coronavirus screen: At this time, the client does not indicate any symptoms associated with coronavirus-19. Ebola Screen: No symptoms or risks identified at this time. Initial Sepsis Screen: Does the patient meet any 2 criteria? No. Patient's initial sepsis screen is negative. Does the patient have a suspected source of infection? No. Patient's initial sepsis screen is negative. Risk Assessment: Do you want to hurt yourself or someone else? Patient reports no desire to harm self or others. Onset of symptoms was August 25, 2024. 18:47 Method Of Arrival: Ambulatory hb 18:47 Acuity: MARTY 3 hb Historical: - Allergies: 19:48 Codeine; al5 19:48 Vicodin; al5 - PMHx: 19:48 asbestosis; Cellulitis; Cerebrovascular accident; Gout; Hypertension; lymphedema; al5 stroke; Psoriatic Arthritis; Pre Diabetes; Pacemaker (stroke); Myocardial infarction; - PSHx: 19:48 Appendectomy; cataracts; heart cath; knee; pacemaker; al5 - Immunization history:: Adult Immunizations up to date. - Infectious Disease History:: Denies. - Social history:: Smoking status: unknown. Screenin:47 [facility] ED Fall Risk Assessment (Adult) History of falling in the last 3 months, al5 including since admission No falls in past 3 months (0 pts) Confusion or Disorientation No (0 pts) Intoxicated or Sedated No (0 pts) Impaired Gait Yes (1 pt) Mobility Assist Device Used Yes (1 pt) Altered Elimination No (0 pt) Score/Fall Risk Level 0 - 2 = Low Risk Oriented to surroundings, Maintained a safe environment, Hourly rounding (assess needs \T\ fall precautionary measures) done. Abuse screen: Denies threats or abuse. Denies injuries from another. Nutritional screening: No deficits noted. Tuberculosis screening: No symptoms or risk factors identified. Assessment: 19:50 General: Appears in no apparent distress. Behavior is calm, cooperative. Pain: al5 Complains of pain in left upper quadrant. Neuro: Level of Consciousness is awake, alert, obeys commands, Oriented to person, place, time, situation. Cardiovascular: Capillary refill < 3 seconds Patient's skin is warm and dry. Cardiovascular: Rhythm is with capture. Respiratory: Airway is patent Respiratory effort is Respiratory pattern is regular, symmetrical. GI: Abdomen is round Reports upper abdominal pain, nausea, vomiting, vomiting blood. : No signs and/or symptoms were reported regarding the genitourinary system. EENT: No signs and/or symptoms were reported regarding the EENT system. Derm: Skin is intact, Skin is pink, warm \T\ dry. normal. Musculoskeletal: No signs and/or symptoms reported regarding the musculoskeletal system. 21:00 Reassessment: Patient appears in no apparent distress at this time. No changes from al5 previously documented assessment. Patient and/or family updated on plan of care and expected duration. Pain level reassessed. Patient is alert, oriented x 3, equal unlabored respirations, skin warm/dry/pink. 22:16 Reassessment: Patient appears in no apparent distress at this time. No changes from al5 previously documented assessment. Patient and/or family updated on plan of care and expected duration. Pain level reassessed. Patient is alert, oriented x 3, equal unlabored respirations, skin warm/dry/pink. 23:11 Reassessment: Patient appears in no apparent distress at this time. No changes from al5 previously documented assessment. Patient and/or family updated on plan of care and expected duration. Pain level reassessed. Patient is alert, oriented x 3, equal unlabored respirations, skin warm/dry/pink. 08/26 00:36 Reassessment: Patient appears in no apparent distress at this time. No changes from al5 previously documented assessment. Patient and/or family updated on plan of care and expected duration. Pain level reassessed. Patient is alert, oriented x 3, equal unlabored respirations, skin warm/dry/pink. [facility] arrive to transfer patient to [facility]. Vital Signs: 08/25 18:47 BP 137 / 82; Pulse 85; Resp 16; Temp 97.9(O); Pulse Ox 98% on R/A; Weight 170.1 kg; hb Height 6 ft. 0 in. ; Pain 8/10; 19:15 BP 160 / 98; Pulse 79; Resp 18; Pulse Ox 96% on R/A; al5 20:00 BP 147 / 74; Pulse 79; Resp 19; Pulse Ox 98% on R/A; al5 20:15 BP 117 / 82; Pulse 80; Resp 19; Pulse Ox 99% on R/A; al5 20:30 BP 165 / 89; Pulse 82; Resp 14; Pulse Ox 97% on R/A; al5 21:00 BP 143 / 78; Pulse 83; Resp 19; Pulse Ox 96% on R/A; al5 21:30 BP 150 / 89; Pulse 84; Resp 20; Pulse Ox 97% on R/A; al5 22:00 BP 148 / 96; Pulse 90; Resp 20; Pulse Ox 99% on R/A; al5 22:30 BP 154 / 86; Pulse 87; Resp 17; Pulse Ox 97% on R/A; al5 23:00 BP 161 / 81; Pulse 84; Resp 19; Pulse Ox 98% on R/A; al5 23:30 BP 157 / 95; Pulse 83; Resp 14; Pulse Ox 98% on R/A; al5 08/26 00:00 BP 158 / 86; Pulse 81; Resp 18; Pulse Ox 97% on R/A; al5 00:30 BP 156 / 88; Pulse 81; Resp 18; Pulse Ox 97% on R/A; al5 08/25 18:47 Body Mass Index 50.86 (170.10 kg, 182.88 cm) hb 08/25 18:47 Pain Scale: Adult hb ED Course: 08/25 18:30 Patient arrived in ED. im 18:40 Sunita Griffiths MD is Attending Physician. sp3 18:48 Triage completed. hb 18:50 Arm band placed on. hb 19:03 Attending Physician role handed off by Sunita Griffiths MD ec2 19:03 Addy Resendiz MD is Attending Physician. ec2 19:14 Type And Screen Sent. qf 19:14 Ptt, Activated Sent. qf 19:14 PT-INR Sent. qf 19:14 Troponin High Sensitivity Sent. qf 19:15 CBC with Diff Sent. qf 19:15 CMP Sent. qf 19:15 Lipase Sent. qf 19:15 Inserted saline lock: 20 gauge in right upper arm, using aseptic technique. Blood qf collected. Flushed with 10 mL NS. 19:47 Amanda Rockwell, RN is Primary Nurse. al5 19:48 Patient has correct armband on for positive identification. Bed in low position. Call al5 light in reach. Side rails up X 1. Provided Education on: plan of care. 20:26 No provider procedures requiring assistance completed. al5 20:47 CT Abd/Pelvis - IV Contrast Only In Process Unspecified. EDMS 22:38 initiated transport with [facility] spoke with Rosa Maria lainez \T\2238 / patient was accepted to [facility] [address] Bauer \T\2302 per Rosa Maria/ initiated transport with EMS spoke with Hetal \T\ 0016. EMS accepted patient advised 10-15 mins. 08/26 00:39 Patient transferred, IV remains in place. al5 Administered Medications: 08/25 19:05 Drug: NS 0.9% IV 1000 ml IV at 1 bolus Per protocol; 1000 mL bolus Route: IV; Rate: 1 rs5 bolus; Site: right antecubital; 19:47 Drug: Pantoprazole IVP 80 mg IVP once Route: IVP; Site: right antecubital; al5 22:09 Follow up: Response: No adverse reaction al5 22:24 Drug: Pantoprazole IV 8 mg/hr IV at 25 ml/hr continuous; (Standard dilution is 80 mg in al5 250 mL NS) Route: IV; Rate: 25 ml/hr; Site: right antecubital; 08/26 00:40 Follow up: Response: No adverse reaction; IV Status: Infusion continued upon transfer al5 Medication: 08/25 19:48 VIS not applicable for this client. al5 Outcome: 21:45 ER care complete, transfer ordered by . ec2 08/26 00:39 Transferred by ground EMS to [facility] [place]5 Condition: stable Instructed on the need for transfer, Demonstrated understanding of instructions, 00:40 Patient left the ED. al5 Signatures: Dispatcher [employer] EDMS Anh Fuentes RN RN Sunita Griffiths MD MD sp3 Martir Monzon, RN RN rs5 Lashon Rosenberg Edwin, MD MD ec2 Lindsey Cortés Amanda, RN RN al5 Rosey Queen RN RN qf Corrections: (The following items were deleted from the chart) 08/25 18:50 18:47 BP 137 / 82; Pulse 85bpm; Resp 16bpm; Pulse Ox 98% RA; Temp 97.9F Oral; Pain hb 06/29, Adult; hb
[2024-08-25] MEDS ORDERED: NA CHLORIDE 0.9% 250 ML ONE (22:15)
[2024-08-26 00:45] VITALS: TEMP 97.9
[2024-08-26 01:02] VITALS: O2SAT 97
[2024-08-26 01:04] VITALS: BP 156/88
== END 2024-08-26 00:40 | disposition short-term general hospital (02) ==
LOC: ER 18:28
DX: K92.2 Gastrointestinal hemorrhage, unspecified (principal); R10.13 Epigastric pain; R42 Dizziness and giddiness; Z86.718 Personal history of other venous thrombosis and embolism; Z79.01 Long term (current) use of anticoagulants; I10 Essential (primary) hypertension; Z95.0 Presence of cardiac pacemaker
CPT/HCPCS: 96365; 85025; 81001; 36415; 86900; 86850; 85610; 86901; 85730; 84484; 83690; 80053; 74177; 99285; 96366; Q9967; J2470 ×2; J7050; J7030

== ENCOUNTER 2024-10-16 17:00 | Emergency (ER) | payer OTHER ==
--- NOTE | 2024-10-16 18:25 | RAD REPORT ---
EXAMINATION: ONE VIEW CHEST XR CLINICAL INDICATION: Cough;Hemoptysis TECHNIQUE: Frontal chest projection is submitted. Examination is limited by patient positioning and t echnique. COMPARISON: 08/07/2024 FINDINGS: Mild pulmonary edema is seen. The heart is mildly enlarged in size. No displaced fractures identified . Dual lead pacer device noted. IMPRESSION: Mild CHF.
--- NOTE | 2024-10-16 20:08 | RAD REPORT ---
EXAMINATION: TWO VIEW CHEST XR CLINICAL INDICATION: Cough;Hemoptysis TECHNIQUE: 2 views of the chest was performed. COMPARISON: No prior exam. FINDINGS: Mild interstitial pulmonary edema suspected. The heart is mildly to moderately enlarged. No displaced fractures evident. Dual lead pacer device. IMPRESSION: Mild CHF is possible.
[2024-10-16] MEDS ORDERED: ONDANSETRON 4 MG/2 ML VIAL ONE (20:23)
[2024-10-16] MEDS ORDERED: PANTOPRAZOLE 40 MG INJ ONE (20:24)
[2024-10-16] MEDS ORDERED: FUROSEMIDE 40 MG/4 ML VIAL ONE (20:24)
[2024-10-16 20:39] LABS: Absolute Basophils 0.1 K/uL (0-0.5); Absolute Eosinophils 0.1 K/uL (0-0.5); Absolute Lymphocytes (CBC) 1.5 K/uL (0.7-4.9); Absolute Monocytes 0.6 K/uL (0.1-1.3); Absolute Neutrophil 3.8 K/uL (1.8-8.0); Basophils % 0.9 % (0-1.3); Eosinophils % 2.1 % (0-4.4); Hematocrit 41.6 % (39.6-49.0); Hemoglobin 13.7 g/dL (13.6-17.9); Lymphocytes % 24.6 % (15.3-44.8); MCH 30.2 pg (27.0-35.0); MCHC 32.9 g/dL (32.0-36.0); MCV 91.8 fL (80-100); MPV 8.1 fL (7.6-11.3); Monocytes % 10.1 % (3.3-12.3); Neutrophils % 62.3 % (41.7-73.7); Nucleated Red Blood Cells % 0.2 % (0-0); Platelets 244 thou/uL (152-406); RBC Red Blood Cell Count 4.53 M/uL (4.33-5.43); Red Cell Distribution Width 13.9 % (12.1-15.2)
[2024-10-16 20:53] LABS: PT Prothrombin Time 12.6 SECONDS (9.4-12.5); Protime INR 1.13
[2024-10-16 20:59] LABS: ALT/SGPT 21 U/L (16-61); AST/SGOT 11 U/L (15-37); Albumin 3.5 g/dL (3.4-5.0); Albumin/Globulin Ratio 0.8 (1.1-1.8); Alkaline Phosphatase 84 U/L (45-117); Anion Gap 10.7 mEq/L (5.0-15.0); BUN Blood Urea Nitrogen 25 mg/dL (7-18); Bicarbonate 24 mEq/L (21-32); Bilirubin Total 0.4 mg/dL (0.2-1.0); Globulin 4.2 g/dL (2.3-3.5); Glomerular Filtration Rate 97 ml/min (=/>90); Glucose Level 98 mg/dL (74-106); Lipase 51 U/L (13-75); Magnesium 2.3 mg/dL (1.6-2.4); NT PRO-BNP 255 pg/mL (<125); Potassium 3.7 mEq/L (3.5-5.1); Protein, Total 7.7 g/dL (6.4-8.2); Sodium Level 137 mEq/L (136-145); Troponin High Sensitivity 14.2 pg/mL (<58.9)
[2024-10-16 21:00] LABS: Bilirubin Direct < 0.2 mg/dL (0-0.2); Bilirubin Indirect, Calculated 0.2 mg/dL (0.2-0.8)
[2024-10-16 21:11] LABS: Urine Bilirubin NEGATIVE (Negative); Urine Blood Negative (Negative); Urine Clarity Clear (Clear); Urine Color Yellow (Yellow); Urine Glucose NEGATIVE (Negative); Urine Ketones NEGATIVE (Negative); Urine Microscopic Reflex YN NO UMIC; Urine Nitrite NEGATIVE (Negative); Urine Protein NEGATIVE (Negative); Urine Urobilinogen Normal (Normal); Urine pH 5.5 (5.0-7.0)
--- NOTE | 2024-10-16 21:17 | EDPHYS ---
Physician Documentation [facility] Name: Grupo Franz Jr Age: 64 yrs Sex: Male : 1960 Arrival Date: 10/16/2024 Time: 17:00 Bed 17 Private MD: ED Physician Gokul Del Cid HPI: 10/16 19:58 This 64 yrs old Male presents to ER via Ambulatory with complaints of sp4 SPITTING UP BLOOD-BLOOD THINNERS. 21:17 Patient is a 64-year-old male with history of CHF, SAMIRA, sigmoid diverticulitis, GERD, sp4 CVA, pacemaker, hypertension, presents with acute worsening of shortness of breath associated with blood-tinged sputum foamy sputum and also bilateral lower extremity edema and generalized edema, . Historical: - Allergies: 17:23 Codeine; hb 17:23 Vicodin; hb - PMHx: 17:23 asbestosis; Cellulitis; Cerebrovascular accident; Gout; Hypertension; lymphedema; hb Myocardial infarction; Pacemaker (stroke); Pre Diabetes; Psoriatic Arthritis; stroke; DVT (pacemaker); - PSHx: 17:23 Appendectomy; cataracts; heart cath; knee; pacemaker; hb - Immunization history:: Adult Immunizations up to date. - Infectious Disease History:: Denies. - Social history:: Smoking status: Patient denies any tobacco usage or history of. - Family history:: not pertinent. ROS: 21:17 Constitutional: Negative for fever, chills, and weight loss, positive for frothy sp4 blood-tinged sputum, shortness of breath and generalized edema 21:17 All other systems are negative, Exam: 21:17 Constitutional: This is a well developed, well nourished patient who is awake, alert, sp4 and in no acute distress. Positive for morbildly obese male , Bilateral lower extremity edema with pitting. Head/Face: Normocephalic, atraumatic. Eyes: Pupils equal round and reactive to light, extra-ocular motions intact. Lids and lashes normal. Conjunctiva and sclera are not injected. Cornea within normal limits. Periorbital areas with no swelling, redness, or edema. ENT: Nares patent. No nasal discharge, no septal abnormalities noted. Tympanic membranes are normal and external auditory canals are clear. Oropharynx with no redness, swelling, or masses, exudates, or evidence of obstruction, uvula midline. Mucous membranes moist. Neck: Trachea midline, no thyromegaly or masses palpated, and no cervical lymphadenopathy. Supple, full range of motion without nuchal rigidity, or vertebral point tenderness. Chest/axilla: Normal chest wall appearance and motion. Nontender with no deformity. No lesions are appreciated. Cardiovascular: Regular rate and rhythm with a normal S1 and S2. No gallops, murmurs, or rubs. Normal PMI, positive JVD. No pulse deficits. Positive for generalized edema. Respiratory: Lungs have equal breath sounds bilaterally, clear to auscultation and percussion. No rales, rhonchi or wheezes noted. No increased work of breathing, no retractions or nasal flaring. Abdomen/GI: Soft, with normal bowel sounds. No distension or tympany. No guarding or rebound. No evidence of tenderness throughout. Back: No spinal tenderness. No costovertebral tenderness. Skin: Warm, dry with normal turgor. Normal color with no rashes, no lesions, and no evidence of cellulitis. MS/ Extremity: Pulses equal, no cyanosis. Neurovascular intact. Full, normal range of motion. Neuro: Awake and alert, GCS 15, oriented to person, place, time, and situation. Cranial nerves II-XII grossly intact. Motor strength 5/5 in all extremities. Sensory grossly intact. Psych: Awake, alert, with orientation to person, place and time. Behavior, mood, and affect are within normal limits 21:22 ECG was reviewed by the Attending Physician. EKG at 21:00 paced rhythm at the rate sp4 of 68 Vital Signs: 17:22 BP 148 / 94; Pulse 73; Resp 18; Temp 97.2(TE); Pulse Ox 98% on R/A; Weight 181.44 kg; hb Height 6 ft. 1 in. ; Pain 4/10; 18:13 Weight 187.7 kg (M); hb 20:00 BP 156 / 66; Pulse 54; Resp 17; Temp 98(O); Pulse Ox 96% on R/A; Pain 0/10; rg5 21:30 BP 133 / 72; Pulse 71; Resp 17; Pulse Ox 99% on R/A; Pain 0/10; rg5 22:40 BP 160 / 65; Pulse 77; Resp 17; Pulse Ox 97% on R/A; Pain 0/10; rg5 23:40 BP 140 / 52; Pulse 69; Resp 17; Pulse Ox 98% on R/A; Pain 0/10; rg5 10/17 00:31 BP 140 / 52; Pulse 70; Resp 17; Pulse Ox 98% on R/A; rg5 01:45 BP 148 / 66; Pulse 72; Resp 16; Pulse Ox 99% on R/A; Pain 0/10; rg5 02:45 BP 148 / 63; Pulse 70; Resp 16; Temp 98; Pulse Ox 99% on R/A; Pain 0/10; rg5 10/16 17:22 Body Mass Index 52.77 (187.70 kg, 185.42 cm) hb 10/16 17:22 Pain Scale: Adult hb 20:00 Pain Scale: Adult rg5 21:30 Pain Scale: Adult rg5 22:40 Pain Scale: Adult rg5 23:40 Pain Scale: Adult rg5 01:45 Pain Scale: Adult rg5 02:45 Pain Scale: Adult rg5 [place] Coma Score: 10/16 21:17 Eye Response: spontaneous(4). Motor Response: obeys commands(6). Verbal Response: sp4 oriented(5). Total: 15. MDM: 17:57 Medical Screening Exam initiated [facility] 17:57 Medical Screening Exam initiated luann 21:23 Differential diagnosis: acute pericarditis, anxiety, coronary artery disease chest wall sp4 pain, congestive heart failure esophagitis. Data reviewed: vital signs, nurses notes, lab test result(s), EKG, radiologic studies. ED course: Chest x-ray reveals mild CHF with pulmonary edema, patient is on Eliquis 5 mg p.o. twice daily so we do not suspect DVT. Sputum is blood-tinged but not frankly bloody. Patient warrants admission for IV diuresis. 22:31 ED course: IMPRESSION: There is no deep vein or superficial vein thrombosis - Bilateral sp4 LE ultrasound . 22:32 ED course: RADIOLOGYSERVICES REPORT Name: GRUPO FRANZ JR Acct Number: [id number] :[id number] Age:64 Sex:M Ord Phys: Jean Carlos Bledsoe MD Unit Number: [id number] Prim Care Dr: Quirino Talbot MD III Status: REG ER ER Exam Date: 10/16/24 EXAMINATION: TWO VIEW CHEST XR CLINICAL INDICATION: Cough;Hemoptysis TECHNIQUE: 2 views of the chest was performed. COMPARISON: No prior exam. FINDINGS: Mild interstitial pulmonary edema suspected. The heart is mildly to moderately enlarged. No displaced fractures evident. Dual lead pacer device. IMPRESSION: Mild CHF is possible. Reported By: Mehdi Mulligan. 10/17 02:12 ED course: Patient was accepted at [facility] by Dr. Cherry . [facility] 10/16 18:01 Order name: Basic Metabolic Panel; Complete Time: 21:02 [facility] 10/16 18:01 Order name: CBC with Diff; Complete Time: 21: [facility] 10/16 18:01 Order name: LFT's; Complete Time: 21:02 [facility] 10/16 18:01 Order name: Magnesium; Complete Time: 21:02 [facility] 10/16 18:01 Order name: NT PRO-BNP; Complete Time: 21:02 [facility] 10/16 18:01 Order name: PT-INR; Complete Time: 21:02 [facility] 10/16 18:01 Order name: Troponin HS; Complete Time: 21:02 [facility] 10/16 18:01 Order name: Lipase; Complete Time: 21:02 [facility] 10/16 18:01 Order name: Urinalysis w/ reflexes; Complete Time: 21:13 [facility] 10/16 18:01 Order name: XRAY Chest (1 view); Complete Time: 18:38 [facility] 10/16 18:39 Order name: Chest Pa And Lat (2 Views) XRAY; Complete Time: 21:02 [facility] 10/16 21:11 Order name: Extrem Venous W Compression Jayesh US; Complete Time: 22:52 [facility] 10/16 18:01 Order name: Cardiac monitoring; Complete Time: 20:17 [facility] 10/16 18:01 Order name: EKG - Nurse/Tech; Complete Time: 20:53 [facility] 10/16 18:01 Order name: IV Saline Lock; Complete Time: 20:17 [facility] 10/16 18:01 Order name: Labs collected and sent; Complete Time: 20:17 [facility] 10/16 18:01 Order name: O2 Per Protocol; Complete Time: 20:17 [facility] 10/16 18:01 Order name: O2 Sat Monitoring; Complete Time: 20:17 [facility] EC/27 21:22 Rate is 68 beats/min. Rhythm is regular, Paced. Interpreted by me. Reviewed by me. sp4 Administered Medications: 20:28 Drug: Pantoprazole IVP 40 mg IVP once Route: IVP; Site: right hand; rg5 20:53 Follow up: Response: No adverse reaction rg5 20:28 Drug: Ondansetron IVP 4 mg IVP once; over 2 minutes Route: IVP; Site: right hand; rg5 20:53 Follow up: Response: No adverse reaction rg5 20:28 Drug: Furosemide IVP 40 mg IVP once; give over 2 minutes Route: IVP; Site: right hand; rg5 20:53 Follow up: Response: No adverse reaction rg5 10/17 00:30 Drug: Acetaminophen PO 1000 mg PO once Route: PO; rg5 01:03 Follow up: Response: No adverse reaction; Pain is decreased rg5 02:10 Drug: Furosemide IVP 40 mg IVP once; give over 2 minutes Route: IVP; Site: right hand; rg5 02:19 Follow up: Response: No adverse reaction rg5 Disposition Summary: 10/16/24 23:12 Transfer Ordered Notes: Transfer Location: [facility] sp4 Reason: Higher level of care sp4 Condition: Stable(10/16/24 23:12) sp4 Problem: new(10/16/24 23:12) sp4 Symptoms: have improved(10/16/24 23:12) sp4 Accepting Physician: [facility] Attending , (10/17/24 03:21) rg5 Diagnosis - Acute diastolic (congestive) heart failure sp4 - CHF exacerbation, Bloody Sputum, Pulmonary Edema , Generalized Edema sp4 Forms: - Medication Reconciliation Form sp4 - SBAR form sp4 Signatures: Dispatcher [employer] EDJean Carlos Basilio MD MD cha Baxter, Heather, RN RN Gokul Villagomez MD MD sp4 Jairo Ayoub, DIANA RN rg5 Corrections: (The following items were deleted from the chart) 10/16 18:02 18:02 Chest For PE Angio+CT.RAD.BRZ ordered. EDIA EDMS 23:07 21:17 Inpatient Admission sp4 sp4 23:07 21:17 Issac Coffman sp4 sp4 23:07 21:17 Telemetry/MedSurg (Inpatient) sp4 sp4 23:07 21:17 Stable sp4 sp4 23: 21:17 new sp4 sp4 23:07 21:17 have improved sp4 sp4 23:07 21:17 Standard sp4 sp4 23:07 21:17 sp4 sp4 23:07 21:17 Acute on chronic diastolic (congestive) heart failure sp4 sp4 23: 21:17 CHF exacerbation, Acute Pulmonary Edema sp4 sp4 10/17 03:21 10/16 23:12 [facility] , sp4 rg5
--- NOTE | 2024-10-16 21:17 | ER ---
Nurse's Notes [facility] Name: Grupo Mcdonald Jr Age: 64 yrs Sex: Male : 1960 Arrival Date: 10/16/2024 Time: 17:00 Bed 17 Private MD: Diagnosis: Acute diastolic (congestive) heart failure;CHF exacerbation, Bloody Sputum, Pulmonary Edema , Generalized Edema Presentation: 10/16 17:22 Chief complaint: Blood in saliva since this morning, takes Eliquis. Coronavirus screen: hb At this time, the client does not indicate any symptoms associated with coronavirus-19. Ebola Screen: No symptoms or risks identified at this time. Initial Sepsis Screen: Does the patient meet any 2 criteria? No. Patient's initial sepsis screen is negative. Does the patient have a suspected source of infection? No. Patient's initial sepsis screen is negative. Risk Assessment: Do you want to hurt yourself or someone else? Patient reports no desire to harm self or others. Onset of symptoms was October 16, 2024. 17:22 Method Of Arrival: Ambulatory hb 17:22 Acuity: MARTY 3 hb Historical: - Allergies: 17:23 Codeine; hb 17:23 Vicodin; hb - PMHx: 17:23 asbestosis; Cellulitis; Cerebrovascular accident; Gout; Hypertension; lymphedema; hb Myocardial infarction; Pacemaker (stroke); Pre Diabetes; Psoriatic Arthritis; stroke; DVT (pacemaker); - PSHx: 17:23 Appendectomy; cataracts; heart cath; knee; pacemaker; hb - Immunization history:: Adult Immunizations up to date. - Infectious Disease History:: Denies. - Social history:: Smoking status: Patient denies any tobacco usage or history of. - Family history:: not pertinent. Screenin:30 [facility] ED Fall Risk Assessment (Adult) History of falling in the last 3 months, rg5 including since admission No falls in past 3 months (0 pts) Confusion or Disorientation No (0 pts) Intoxicated or Sedated No (0 pts) Impaired Gait Yes (1 pt) Mobility Assist Device Used Yes (1 pt) Altered Elimination No (0 pt) Score/Fall Risk Level 0 - 2 = Low Risk Oriented to surroundings, Maintained a safe environment, Hourly rounding (assess needs \T\ fall precautionary measures) done. Abuse screen: Denies threats or abuse. Nutritional screening: No deficits noted. Tuberculosis screening: No symptoms or risk factors identified. Assessment: 19:30 General: Appears in no apparent distress. Behavior is calm, cooperative, appropriate rg5 for age. 19:30 Pain: Denies pain. Neuro: Level of Consciousness is awake, alert, Oriented to person, rg5 place. Cardiovascular: Denies chest pain, Heart tones S1 S2 Patient's skin is warm and dry. Rhythm is sinus rhythm. Respiratory: Airway is patent Trachea midline Respiratory effort is Respiratory pattern is regular. GI: Abdomen is round non-distended. : No signs and/or symptoms were reported regarding the genitourinary system. EENT: No deficits noted. Derm: Skin is intact, Skin is dry, Skin is normal, Skin temperature is warm. Musculoskeletal: Circulation, motion, and sensation intact. Range of motion: intact in all extremities. 20:00 Reassessment: No changes from previously documented assessment. Patient and/or family rg5 updated on plan of care and expected duration. Pain level reassessed. Patient is alert, oriented x 3, equal unlabored respirations, skin warm/dry/pink. 21:00 Reassessment: No changes from previously documented assessment. Patient and/or family rg5 updated on plan of care and expected duration. Pain level reassessed. Patient is alert, oriented x 3, equal unlabored respirations, skin warm/dry/pink. 22:00 Reassessment: Patient and/or family updated on plan of care and expected duration. Pain rg5 level reassessed. Patient is alert, oriented x 3, equal unlabored respirations, skin warm/dry/pink. 23:59 Reassessment: Patient and/or family updated on plan of care and expected duration. Pain rg5 level reassessed. Patient is alert, oriented x 3, equal unlabored respirations, skin warm/dry/pink. General: Appears in no apparent distress. 10/17 00:31 Reassessment: No changes from previously documented assessment. Patient and/or family rg5 updated on plan of care and expected duration. Pain level reassessed. Patient is alert, oriented x 3, equal unlabored respirations, skin warm/dry/pink. 01:45 Reassessment: Patient and/or family updated on plan of care and expected duration. Pain rg5 level reassessed. Patient is alert, oriented x 3, equal unlabored respirations, skin warm/dry/pink. 02:00 Reassessment: Patient and/or family updated on plan of care and expected duration. Pain rg5 level reassessed. Patient is alert, oriented x 3, equal unlabored respirations, skin warm/dry/pink. 03:15 Reassessment: Patient and/or family updated on plan of care and expected duration. Pain rg5 level reassessed. Patient is alert, oriented x 3, equal unlabored respirations, skin warm/dry/pink. Vital Signs: 10/16 17:22 BP 148 / 94; Pulse 73; Resp 18; Temp 97.2(TE); Pulse Ox 98% on R/A; Weight 181.44 kg; hb Height 6 ft. 1 in. ; Pain 4/10; 18:13 Weight 187.7 kg (M); hb 20:00 BP 156 / 66; Pulse 54; Resp 17; Temp 98(O); Pulse Ox 96% on R/A; Pain 0/10; rg5 21:30 BP 133 / 72; Pulse 71; Resp 17; Pulse Ox 99% on R/A; Pain 0/10; rg5 22:40 BP 160 / 65; Pulse 77; Resp 17; Pulse Ox 97% on R/A; Pain 0/10; rg5 23:40 BP 140 / 52; Pulse 69; Resp 17; Pulse Ox 98% on R/A; Pain 0/10; rg5 10/17 00:31 BP 140 / 52; Pulse 70; Resp 17; Pulse Ox 98% on R/A; rg5 01:45 BP 148 / 66; Pulse 72; Resp 16; Pulse Ox 99% on R/A; Pain 0/10; rg5 02:45 BP 148 / 63; Pulse 70; Resp 16; Temp 98; Pulse Ox 99% on R/A; Pain 0/10; 5 10/16 17:22 Body Mass Index 52.77 (187.70 kg, 185.42 cm) hb 10/16 17:22 Pain Scale: Adult hb 20:00 Pain Scale: Adult rg5 21:30 Pain Scale: Adult rg5 22:40 Pain Scale: Adult rg5 23:40 Pain Scale: Adult rg5 01:45 Pain Scale: Adult rg5 02:45 Pain Scale: Adult rg5 [place] Coma Score: 10/16 21:17 Eye Response: spontaneous(4). Motor Response: obeys commands(6). Verbal Response: sp4 oriented(5). Total: 15. ED Course: 17:03 Patient arrived in ED. mg5 17:23 Triage completed. hb 17:24 Arm band placed on. hb 17:57 Jean Carlos Bledsoe MD is Attending Physician. luann 18:20 XRAY Chest (1 view) In Process Unspecified. EDMS 19:30 Patient has correct armband on for positive identification. Call light in reach. Door rg5 closed. Noise minimized. Verbal reassurance given. 19:30 No provider procedures requiring assistance completed. Inserted saline lock: 20 gauge rg5 in right hand, using aseptic technique. Blood collected. Flushed with 10 mL NS. 19:58 Chest Pa And Lat (2 Views) XRAY In Process Unspecified. EDMS 19:58 Attending Physician role handed off by Jean Carlos Bledsoe MD sp4 19:58 Gokul Del Cid MD is Attending Physician. sp4 20:02 Jairo Ayoub, DIANA is Primary Nurse. rg5 21:16 Issac Coffman MD is Hospitalizing Provider. sp4 22:14 Extrem Venous W Compression Jayesh US In Process Unspecified. EDMS 10/17 03:16 Provided Education on: needs for transfer. rg5 03:16 Patient transferred, IV remains in place. intact, No redness/swelling at site. Pressure rg5 dressing applied. Administered Medications: 10/16 20:28 Drug: Pantoprazole IVP 40 mg IVP once Route: IVP; Site: right hand; rg5 20:53 Follow up: Response: No adverse reaction rg5 :28 Drug: Ondansetron IVP 4 mg IVP once; over 2 minutes Route: IVP; Site: right hand; rg5 20:53 Follow up: Response: No adverse reaction rg5 :28 Drug: Furosemide IVP 40 mg IVP once; give over 2 minutes Route: IVP; Site: right hand; rg5 20:53 Follow up: Response: No adverse reaction rg5 10/17 00:30 Drug: Acetaminophen PO 1000 mg PO once Route: PO; rg5 01:03 Follow up: Response: No adverse reaction; Pain is decreased rg5 02:10 Drug: Furosemide IVP 40 mg IVP once; give over 2 minutes Route: IVP; Site: right hand; rg5 02:19 Follow up: Response: No adverse reaction rg5 Medication: 10/16 19:30 VIS not applicable for this client. rg5 Intake: 10/17 01:18 PO: 350ml (Water); Total: 350ml. rg5 Output: 01:18 Urine: 1700ml (Voided); Total: 1700ml. rg5 03:20 Urine: 800ml (Voided); Total: 2500ml. rg5 Outcome: 10/16 21:17 Decision to Hospitalize by Provider. sp4 23:12 ER care complete, transfer ordered by MD. leach 10/17 03:16 Transferred by ground EMS to [facility], [facility], [facility] Condition: stable 03:21 Patient left the ED. rg5 Signatures: Dispatcher [employer] EDJean Carlos Basilio MD MD cha Baxter, Heather, RN RN Gokul Del Cid MD MD [facility] Yesenia Cee [facility] Jairo Ayoub RN RN rg5
--- NOTE | 2024-10-16 22:15 | RAD REPORT ---
EXAMINATION: US BILATERAL LOWER EXTREMITY VENOUS DOPPLER CLINICAL INDICATION: bilateral leg swelling TECHNIQUE: Complete bilateral duplex sonography of the BILATERAL lower extremity veins was performed. The examination included compression for vein patency, color Doppler imaging and flow augmentation in response to distal compression of the distal external iliac, common femoral, femoral, popliteal, t ibial, and great and small saphenous veins. COMPARISON: No prior exam. FINDINGS: Duplex sonography testing of the veins of the BILATERAL lower extremity was performed. Color flow shauna ging shows all veins to be compressible with [id number] color filling. Pulsatile and phasic flow is present within all lower extremity deep and superficial veins examined. IMPRESSION: There is no deep vein or superficial vein thrombosis.
--- NOTE | 2024-10-16 22:32 | P.HP ---
Certification for Inpatient With expected LOS: <2 Midnights Practitioner: I am a practitioner with admitting privileges, knowledge of patient current condition, hospital course, and medical plan of care. Services: Services provided to patient in accordance with Admission requirements found in Title 42 Section 412.3 of the Code of Federal Regulations Patient History Date of Service: 10/16/24 Reason for admission: hemoptysis, volume overload History of Present Illness: 64 year old man with a past medical history significant for obesity, HTN, History of DVT (LUE) on Eliquis, [place] with pacemaker placement, and gout presented to the emergency room complaining of hemoptysis, and edema of b/l lower extremities. The patient states that he has had a dry cough for several days, but today began coughing up frothy, pink, blood tinged sputum. The patient states that he believes his cough is getting worse, and is coughing up more blood tinged sputum now. Also, the patient states that he has been experiencing urinary frequency, and reports large volume urinary outputs all day. He has not attempted anything to alleviate his symptoms, and states nothing worsens. He is not on home oxygen. He denies fever, and dyspnea. Allergies codeine Allergy (Verified 07/31/24 13:05) heart racing hydrocodone [From Vicodin] Allergy (Verified 07/31/24 13:05) heart racing acetaminophen [From Vicodin] Adverse Reaction (Intermediate, Verified 07/31/24 13:05) heart racing Home Medications: Allopurinol 300 mg PO DAILY 04/08/23 Aspirin Chewable [Aspirin Chewable*] 81 mg PO DAILY 11/12/23 Potassium Chloride 20 meq PO DAILY 11/12/23 Omeprazole [Prilosec] 40 mg PO DAILY 04/06/24 Ezetimibe [Zetia] 10 mg PO DAILY 07/31/24 Metoprolol Succinate [Toprol Xl] 25 mg PO DAILY 07/31/24 NIFEdipine [Nifedipine ER] 30 mg PO BID 07/31/24 Ranolazine [Ranolazine ER] 500 mg PO BID 07/31/24 Spironolactone [Aldactone] 25 mg PO DAILY 07/31/24 - Past Medical/Surgical History Diabetic: No -: HTN -: Chronic lymphedema -: Morbid obesity -: History of asbestosis exposure -: History of CVA -: Gout -: Psoriatic arthritis -: Osteoarthritis -: Diverticulosis -: pre diabetic -: appendectomy -: carpaltunnel surg in L hand -: L knee "clean up" -: vein procedure in Both legs -: Cataract Sx -: pacemaker Psychosocial/ Personal History: Patient lives with son. He is a - Family History Mother -: Heart disease, Hypertension Father -: Cancer Notes: lung cancer - Social History Smoking Status: Unknown if ever smoked Alcohol use: No CD- Drugs: No Caffeine use: Yes Review of Systems Respiratory: Cough (blood tinged), Sputum (frothy, pink) Genitourinary: Frequency (non bloody) Physical Examination - Vital Signs Temperature: 97.2 F Blood Pressure: 133/72 Pulse: 82 Respirations: 18 Pulse Ox (%): 100 (room air) - Physical Exam General: Alert, Oriented x3 HEENT: Atraumatic, Normocephalic Neck: JVD not distended Respiratory: Crackles/rales (b/l lower lungs) Cardiovascular: No gallops, No rubs, No murmurs, Edema Gastrointestinal: Normal bowel sounds, Non-distended, No tenderness Musculoskeletal: No erythema, No tenderness, No warmth, Swelling (b/l lower extremity edema present) Neurological: Normal strength at 5/5 x4 extr, Sensation intact - Studies Laboratory Data (last 24 hrs) 10/16/24 10/16/24 10/16/24 20:20 20:20 20:20 WBC 6.20 Hgb 13.7 Hct 41.6 Plt Count 244 PT 12.6 H INR 1.13 Sodium 137 Potassium 3.7 BUN 25 H Creatinine 0.89 Glucose 98 Magnesium 2.3 Total Bilirubin 0.4 AST 11 L ALT 21 Alkaline Phosphatase 84 Lipase 51 Assessment and Plan - Problems (Diagnosis) (1) Hemoptysis Current Visit: Yes Status: Acute - Plan Hemoptysis: Recommend d-dimer, followed by CT Chest to rule out pulmonary embolism Patient may be too obese to have CT performed (patient >400 lbs) Recommend pulmonology consult CXR revealed mild CHF, volume overload patient may benefit from IV lasix If patient is unable to perform CT imaging, recommend that the patient is transf erred for a higher level of care - Advance Directives Does patient have a Living Will: No Does patient have a Durable POA for Healthcare: No
--- NOTE | 2024-10-16 23:16 | P.CNS ---
Date of Consult: 10/16/24 64 year old man with a past medical history significant for obesity, HTN, History of DVT (LUE) on Eliquis, [place] with pacemaker placement, and gout presented to the emergency room complaining of hemoptysis, and edema of b/l lower extremities. The patient states that he has had a dry cough for several days, but today began coughing up frothy, pink, blood tinged sputum. The patient states that he believes his cough is getting worse, and is coughing up more blood tinged sputum now. Also, the patient states that he has been experiencing urinary frequency, and reports large volume urinary outputs all day. He has not attempted anything to alleviate his symptoms, and states nothing worsens. He is not on home oxygen. He denies fever, and dyspnea. Allergies codeine Allergy (Verified 07/31/24 13:05) heart racing hydrocodone [From Vicodin] Allergy (Verified 07/31/24 13:05) heart racing acetaminophen [From Vicodin] Adverse Reaction (Intermediate, Verified 07/31/24 13:05) heart racing Home Medications: Allopurinol 300 mg PO DAILY 04/08/23 Aspirin Chewable [Aspirin Chewable*] 81 mg PO DAILY 11/12/23 Potassium Chloride 20 meq PO DAILY 11/12/23 Omeprazole [Prilosec] 40 mg PO DAILY 04/06/24 Ezetimibe [Zetia] 10 mg PO DAILY 07/31/24 Metoprolol Succinate [Toprol Xl] 25 mg PO DAILY 07/31/24 NIFEdipine [Nifedipine ER] 30 mg PO BID 07/31/24 Ranolazine [Ranolazine ER] 500 mg PO BID 07/31/24 Spironolactone [Aldactone] 25 mg PO DAILY 07/31/24 - Past Medical/Surgical History Diabetic: No -: HTN -: Chronic lymphedema -: Morbid obesity -: History of asbestosis exposure -: History of CVA -: Gout -: Psoriatic arthritis -: Osteoarthritis -: Diverticulosis -: pre diabetic -: appendectomy -: carpaltunnel surg in L hand -: L knee "clean up" -: vein procedure in Both legs -: Cataract Sx -: pacemaker Psychosocial/ Personal History: Patient lives with son. He is a - Family History Mother -: Heart disease, Hypertension Father -: Cancer Notes: lung cancer - Social History Smoking Status: Unknown if ever smoked Alcohol use: No CD- Drugs: No Caffeine use: Yes Review of Systems Respiratory: Cough (blood tinged), Sputum (frothy, pink) Genitourinary: Frequency (non bloody) Physical Examination - Vital Signs Temperature: 97.2 F Blood Pressure: 133/72 Pulse: 82 Respirations: 18 Pulse Ox (%): 100 (room air) - Physical Exam General: Alert, Oriented x3 HEENT: Atraumatic, Normocephalic Neck: JVD not distended Respiratory: Crackles/rales (b/l lower lungs) Cardiovascular: No gallops, No rubs, No murmurs, Edema Gastrointestinal: Normal bowel sounds, Non-distended, No tenderness Musculoskeletal: No erythema, No tenderness, No warmth, Swelling (b/l lower extremity edema present) Neurological: Normal strength at 5/5 x4 extr, Sensation intact - Studies Laboratory Data (last 24 hrs) 10/16/24 10/16/24 10/16/24 20:20 20:20 20:20 WBC 6.20 Hgb 13.7 Hct 41.6 Plt Count 244 PT 12.6 H INR 1.13 Sodium 137 Potassium 3.7 BUN 25 H Creatinine 0.89 Glucose 98 Magnesium 2.3 Total Bilirubin 0.4 AST 11 L ALT 21 Alkaline Phosphatase 84 Lipase 51 Assessment and Plan - Problems (Diagnosis) (1) Hemoptysis Current Visit: Yes Status: Acute - Plan Hemoptysis: Recommend d-dimer, followed by CT Chest to rule out pulmonary embolism Patient may be too obese to have CT performed (patient >400 lbs) Recommend pulmonology consult CXR revealed mild CHF, volume overload patient may benefit from IV lasix patient may benefit from sputum cx If patient is unable to perform CT imaging, recommend that the patient is transferred for a higher level of care
[2024-10-17] MEDS ORDERED: ACETAMINOPHEN 500 MG TAB ONE (00:23)
[2024-10-17] MEDS ORDERED: FUROSEMIDE 40 MG/4 ML VIAL ONE (02:16)
[2024-10-17 04:09] VITALS: O2SAT 99
[2024-10-17 04:11] VITALS: BP 148/63; TEMP 98
--- NOTE | 2024-10-20 14:18 | EKG ---
Test Date: 2024-10-16 Test Time: 21:00:24 Spinning Frame Cleaner: SARBJIT MEASUREMENT RESULTS: Intervals: Rate: 68 MD: 200 QRSD: 208 QT: 478 QTc: 508 [place]: P: 72 MD: 200 QRS: -54 T: 114 INTERPRETIVE STATEMENTS: Normal sinus rhythm Left axis deviation Left ventricular hypertrophy with QRS widening and repolarization abnormality Lateral infarct, age undetermined Inferior infarct, age undetermined Abnormal ECG Compared to ECG 08/07/2024 13:42:38 No significant changes Electronically Signed On 10-20-24 14:15:10 PARIM[employer]EL TICKET CASHIER by Omer Yan
== END 2024-10-17 03:21 | disposition short-term general hospital (02) ==
LOC: ER 17:00
DX: I50.31 Acute diastolic (congestive) heart failure (principal); R60.1 Generalized edema; I50.9 Heart failure, unspecified; I10 Essential (primary) hypertension; E66.01 Morbid (severe) obesity due to excess calories; Z95.0 Presence of cardiac pacemaker; Z86.718 Personal history of other venous thrombosis and embolism; Z86.73 Personal history of transient ischemic attack (TIA), and cerebral infarction without residual deficits; Z79.01 Long term (current) use of anticoagulants; Z79.82 Long term (current) use of aspirin
CPT/HCPCS: 93005; 85025; 80048; 36415; 83735; 85610; 80076; 81003; 84484; 83690; 83880; 71045; 71046; 93970; 96375; 96374; 99285; J1940 ×2; J2470; J2405

== ENCOUNTER 2024-11-17 08:24 | Emergency (ER) | payer OTHER ==
[2024-11-17 09:07] LABS: Absolute Lymphocytes (CBC) 0.5 K/uL (0.7-4.9); Absolute Monocytes 0.4 K/uL (0.1-1.3); Absolute Neutrophil 6.8 K/uL (1.8-8.0); Basophils % 0.2 % (0-1.3); Eosinophils % 0.5 % (0-4.4); Hematocrit 46.1 % (39.6-49.0); Hemoglobin 14.9 g/dL (13.6-17.9); Lymphocytes % 6.6 % (15.3-44.8); MCH 29.8 pg (27.0-35.0); MCHC 32.3 g/dL (32.0-36.0); MCV 92.3 fL (80-100); MPV 8.3 fL (7.6-11.3); Neutrophils % 87.7 % (41.7-73.7); Platelets 236 thou/uL (152-406); Red Cell Distribution Width 14.6 % (12.1-15.2)
[2024-11-17 09:31] LABS: Specific Gravity > 1.030 (1.005-1.030); Urine Bilirubin NEGATIVE (Negative); Urine Blood Negative (Negative); Urine Clarity Clear (Clear); Urine Color Light-Yellow (Yellow); Urine Glucose 4+ (Over) (Negative); Urine Ketones NEGATIVE (Negative); Urine Microscopic Reflex YN NO UMIC; Urine Nitrite NEGATIVE (Negative); Urine Protein NEGATIVE (Negative); Urine Urobilinogen Normal (Normal); Urine pH 5.5 (5.0-7.0)
[2024-11-17] MEDS ORDERED: ONDANSETRON 4 MG/2 ML VIAL ONE (09:38)
[2024-11-17] MEDS ORDERED: PANTOPRAZOLE 40 MG INJ ONE (09:38)
--- NOTE | 2024-11-17 09:50 | RAD REPORT ---
EXAMINATION: CT ABDOMEN AND PELVIS WITH CONTRAST CLINICAL INDICATION: Male, 64 years old.ABD PAIN TECHNIQUE: CT abdomen and pelvis was performed, after the administration of IV contrast, as per [facility] protocol. Axial, sagittal and coronal reconstructions were obtained. One or more of the following dose reduction techniques were used: Automated exposure control, adjustment of the mA and/o r kV according to patient size, and/or iterative reconstruction. Unless otherwise specified, incidental findings do not require dedicated imaging follow-up. [id number]. COMPARISON: 08/25/2024 FINDINGS: LOWER CHEST: No acute process identified.Small pericardial effusion. Pacemaker leads UPPER GI: No significant abnormality. LIVER: Hepatic steatosis, but otherwise unremarkable. GALLBLADDER/BILE DUCTS: No biliary ductal dilatation.? PANCREAS: No mass, ductal dilation, or jose r-pancreatic fluid. SPLEEN: Unremarkable. ADRENALS: No adrenal masses. KIDNEYS AND URETERS: No hydronephrosis.Low density and/or too small to characterize renal lesions whi ch are statistically benign. ABDOMINAL AORTA AND OTHER VESSELS: Mild atherosclerotic changes. PERITONEUM: Small volume of free fluid present in the right and left lower quadrants. LYMPH NODES: No pathologic lymphadenopathy. ABDOMINAL WALL: Small fat containing umbilical hernia. SMALL BOWEL/COLON: Scattered small air-fluid levels are present throughout the small bowel. No bowel dilatation. No focal inflammatory changes.Nonvisualized appendix but no secondary signs of acute appendicitis. Mild diverticulosis without diverticulitis. URINARY BLADDER: Underdistended but grossly unremarkable. REPRODUCTIVE ORGANS: No pathologic process. MUSCULOSKELETAL: Multilevel degenerative changes in the spine. No acute fracture. ADDITIONAL FINDINGS: None. IMPRESSION: Nonspecific small volume of intraperitoneal free fluid. Mild fluid filled small bowel segments could be sequela of a mild enteritis. No bowel obstruction. Other incidental findings as noted above.
[2024-11-17 10:19] LABS: Albumin 3.4 g/dL (3.4-5.0); Albumin/Globulin Ratio 0.8 (1.1-1.8); Anion Gap 9.6 mEq/L (5.0-15.0); Bilirubin Total 0.4 mg/dL (0.2-1.0); Globulin 4.2 g/dL (2.3-3.5); Potassium 3.6 mEq/L (3.5-5.1); Protein, Total 7.6 g/dL (6.4-8.2)
[2024-11-17] MEDS ORDERED: CIPROFLOXACIN HCL 500 MG TAB ONE (10:33)
--- NOTE | 2024-11-17 10:33 | EDPHYS ---
Physician Documentation [facility] Name: Grupo Mcdonald Jr Age: 64 yrs Sex: Male : 1960 Arrival Date: 11/17/2024 Time: 08:24 Bed 13 Private MD: ED Physician Albert Caputo HPI: 11/17 08:54 This 64 yrs old Male presents to ER via Ambulatory with complaints of Abdominal Pain. rn 08:54 The patient presents with abdominal pain in the left upper quadrant, in the left lower rn quadrant. Onset: The symptoms/episode began/occurred yesterday. Associated signs and symptoms: Pertinent positives: nausea and vomiting, Pertinent negatives: blood in stools, chest pain, constipation, fever. Modifying factors: The symptoms are alleviated by nothing, the symptoms are aggravated by touching the area. Severity of pain: At its worst the pain was moderate in the emergency department the pain is unchanged. The patient has experienced similar episodes in the past. Patient reports left-sided abdominal pain that began yesterday, associated with nausea and vomiting. Patient states feels more like his acid problem and ulcer problem but has had diverticulitis in the past. Reports mild loose stool but no blood in stool. Constant pain without radiation.. Historical: - Allergies: 08:34 Codeine; ss 08:36 Vicodin; heart racing; ss - PMHx: 08:34 asbestosis; Cellulitis; Cerebrovascular accident; DVT (pacemaker); Gout; Hypertension; ss Myocardial infarction; Pacemaker (stroke); Pre Diabetes; Psoriatic Arthritis; stroke; lymphedema; 08:36 Diverticulitis; ss - PSHx: 08:34 Appendectomy; cataracts; heart cath; knee; pacemaker; ss - Infectious Disease History:: Denies. - Social history:: Smoking status: Patient denies any tobacco usage or history of. - Family history:: not pertinent. - Hospitalizations: : No recent hospitalization is reported. ROS: 08:54 Constitutional: Negative for fever, chills, and weight loss, Cardiovascular: Negative rn for chest pain, palpitations, and edema, Respiratory: Negative for shortness of breath, cough, wheezing, and pleuritic chest pain, Abdomen/GI: Positive for left-sided abdominal pain with nausea and vomiting Back: Negative for injury and pain, : Negative for injury, bleeding, discharge, and swelling, MS/Extremity: Negative for injury and deformity, Neuro: Negative for headache, weakness, numbness, tingling, and seizure, Exam: 08:54 Constitutional: This is a well developed, well nourished patient who is awake, alert, rn and in no acute distress. Cardiovascular: Regular rate and rhythm. No pulse deficits. Respiratory: No increased work of breathing, no retractions or nasal flaring. Abdomen/GI: Soft, left upper quadrant and left lower quadrant tenderness without rebound or guarding MS/ Extremity: Pulses equal, no cyanosis. Neurovascular intact. Full, normal range of motion. Equal circumference. Neuro: Awake and alert, GCS 15 Vital Signs: 08:41 BP 129 / 59; Pulse 89; Resp 18; Temp 97.8(TE); Pulse Ox 100% on R/A; Weight 182.34 kg; ss Height 6 ft. 1 in. ; Pain 4/10; 08:41 Body Mass Index 53.04 (182.34 kg, 185.42 cm) ss 08:41 Pain Scale: Adult ss MDM: 08:28 Medical Screening Exam initiated rn 10:32 Differential diagnosis: bowel obstruction, diverticulitis, non-specific abd pain, rn pancreatitis, Ureterolithiasis, urinary tract infection. Data reviewed: vital signs, nurses notes, lab test result(s), radiologic studies, CT scan, and as a result, I will discharge patient. Counseling: I had a detailed discussion with the patient and/or guardian regarding the historical points, exam findings, and any diagnostic results supporting the discharge/admit diagnosis, lab results, radiology results, the need for outpatient follow up, to return to the emergency department if symptoms worsen or persist or if there are any questions or concerns that arise at home. Special discussion: Based on the patient's Hx, exam, and Dx evaluation, there is no indication for emergent surgery or inpatient Tx. It is understood by the patient/guardian that if the Sx's persist or worsen they need to return immediately for re-evaluation. I discussed with the patient/guardian in detail that at this point there is no indication for admission to the hospital. It is understood, however, that if the symptoms persist or worsen the patient needs to return immediately for re-evaluation. 11/17 08:35 Order name: CBC with Diff; Complete Time: 11:37 rn 11/17 08:35 Order name: CMP; Complete Time: 10:28 rn 11/17 08:35 Order name: Lipase; Complete Time: 10:28 rn 11/17 08:35 Order name: Urinalysis w/ reflexes; Complete Time: 10:07 rn 11/17 11:06 Order name: CBC Smear Scan; Complete Time: 11:37 EDMS 11/17 08:35 Order name: CT Abd/Pelvis - IV Contrast Only; Complete Time: 10:07 rn 11/17 08:35 Order name: IV Saline Lock; Complete Time: 09:02 rn 11/17 08:35 Order name: Labs collected and sent; Complete Time: 09:02 rn 11/17 09:10 Order name: Labs - recollect needed: recollect chemistries per Shelly; Complete Time: eb 09:59 Administered Medications: 09:44 Drug: Pantoprazole IVP 40 mg IVP once Route: IVP; Site: right wrist; ss 09:44 Drug: Ondansetron IVP 4 mg IVP once; over 2 minutes Route: IVP; Site: right wrist; ss 10:41 Drug: Ciprofloxacin PO 500 mg PO once Route: PO; hb 10:41 Drug: metroNIDAZOLE IVPB 500 mg 100 ml IVPB at 200 ml/hr once over 30 mins Volume: 100 hb ml; Route: IVPB; Rate: 200 ml/hr; Infused Over: 30 mins; Site: right wrist; Disposition Summary: 11/17/24 10:32 Discharge Ordered Notes: Location: Home rn Problem: new rn Symptoms: have improved rn Condition: Stable rn Diagnosis - Infectious gastroenteritis and colitis, unspecified rn Followup: rn - With: Private Physician - When: As needed - Reason: Recheck today's complaints, Re-evaluation by your physician Discharge Instructions: - Discharge Summary Sheet rn - Abdominal Pain, Adult rn - Colitis rn Forms: - Medication Reconciliation Form rn - Antibiotic online journalist - Prescription Opioid Use rn - Patient Portal Instructions rn - Leadership Thank You Letter rn Prescriptions: - ondansetron 4 mg Oral Tablet,disintegrating - take 1 tablet ORAL route every 8 hours As needed; 12 tablet; Refills: 0, rn Product Selection Permitted - Flagyl 500 mg Oral Tablet - take 1 tablet ORAL route every 8 hours for 10 days; 30 tablet; Refills: 0, rn Product Selection Permitted - Cipro 500 mg Oral tablet - take 1 tablet ORAL route every 12 hours for 10 days; 20 tablet; Refills: 0, rn Product Selection Permitted - Tramadol 50 mg Oral Tablet - take 1 tablet ORAL route every 8 hours as needed; 12 tablet; Refills: 0, rn Product Selection Permitted Signatures: Dispatcher [employer] EDMS Albert Caputo MD MD rn Blanchard, Shelby, RN RN ss Anh Fuentes RN RN hb Botello, Elizabeth eb Corrections: (The following items were deleted from the chart) 08:35 08:35 Abdomen Pelvis W Con+CT.RAD.BRZ ordered. EDMS EDMS 08:36 08:36 Urinalysis+U.LAB.BRZ ordered. EDMS EDMS 08:37 08:34 Allergies: Vicodin; ss ss
--- NOTE | 2024-11-17 10:33 | ER ---
Nurse's Notes [facility] Name: Grupo Mcdonald Jr Age: 64 yrs Sex: Male : 1960 Arrival Date: 11/17/2024 Time: 08:24 Bed 13 Private MD: Diagnosis: Infectious gastroenteritis and colitis, unspecified Presentation: 11/17 08:35 Chief complaint: Patient states: abd pain that began last night, worse this morning ss with nausea. Coronavirus screen: Client denies travel out of the [place] in the last 14 days. Ebola Screen: Patient denies exposure to infectious person. Patient denies travel to an Ebola-affected area in the 21 days before illness onset. Initial Sepsis Screen: Does the patient meet any 2 criteria? No. Patient's initial sepsis screen is negative. Does the patient have a suspected source of infection? No. Patient's initial sepsis screen is negative. Risk Assessment: Do you want to hurt yourself or someone else? Patient reports no desire to harm self or others. 08:35 Acuity: MARTY 3 ss 08:35 Method Of Arrival: Ambulatory ss Historical: - Allergies: 08:34 Codeine; ss 08:36 Vicodin; heart racing; ss - PMHx: 08:34 asbestosis; Cellulitis; Cerebrovascular accident; DVT (pacemaker); Gout; Hypertension; ss Myocardial infarction; Pacemaker (stroke); Pre Diabetes; Psoriatic Arthritis; stroke; lymphedema; 08:36 Diverticulitis; ss - PSHx: 08:34 Appendectomy; cataracts; heart cath; knee; pacemaker; ss - Infectious Disease History:: Denies. - Social history:: Smoking status: Patient denies any tobacco usage or history of. - Family history:: not pertinent. - Hospitalizations: : No recent hospitalization is reported. Screenin:35 Abuse screen: Denies threats or abuse. Denies injuries from another. Nutritional ss screening: No deficits noted. Tuberculosis screening: Never had TB. Assessment: 08:35 General: Appears obese, Behavior is calm, cooperative, Denies fever. Pain: Complains of ss pain in abdomen Pain currently is 4 out of 10 on a pain scale. Quality of pain is described as aching, Pain began last night, worse this morning with Nausea Is continuous. Neuro: Level of Consciousness is awake, alert, obeys commands, Oriented to person, place, time, situation. Respiratory: Airway is patent Respiratory effort is even, unlabored, Respiratory pattern is regular, symmetrical. GI: Abdomen is round obese, Bowel sounds present X 4 quads. Abd is non tender. Derm: Skin is pink, warm \T\ dry. normal. 10:41 Reassessment: Discharge pending completion of IV ABX. hb Vital Signs: 08:41 BP 129 / 59; Pulse 89; Resp 18; Temp 97.8(TE); Pulse Ox 100% on R/A; Weight 182.34 kg; ss Height 6 ft. 1 in. ; Pain 4/10; 08:41 Body Mass Index 53.04 (182.34 kg, 185.42 cm) ss 08:41 Pain Scale: Adult ss ED Course: 08:26 Patient arrived in ED. mr 08:28 Albert Caputo MD is Attending Physician. rn 08:35 Triage completed. ss 08:35 Arm band placed on right wrist. ss 08:35 Patient has correct armband on for positive identification. ss 09:02 CBC with Diff Sent. em1 09:02 CMP Sent. em1 09:02 Lipase Sent. em1 09:02 Initial lab(s) drawn, by me, sent to lab. Inserted saline lock: 22 gauge in right em1 wrist, using aseptic technique. Blood collected. Flushed with 10 mL NS. 09:37 CT Abd/Pelvis - IV Contrast Only In Process Unspecified. EDMS Administered Medications: 09:44 Drug: Pantoprazole IVP 40 mg IVP once Route: IVP; Site: right wrist; ss 09:44 Drug: Ondansetron IVP 4 mg IVP once; over 2 minutes Route: IVP; Site: right wrist; ss 10:41 Drug: Ciprofloxacin PO 500 mg PO once Route: PO; hb 10:41 Drug: metroNIDAZOLE IVPB 500 mg 100 ml IVPB at 200 ml/hr once over 30 mins Volume: 100 hb ml; Route: IVPB; Rate: 200 ml/hr; Infused Over: 30 mins; Site: right wrist; Medication: 08:35 VIS not applicable for this client. ss Outcome: 10:32 Discharge ordered by . rn 12:02 Patient left the ED. eb Signatures: Dispatcher [employer] EDMS Tri Leblanc, Reg Reg Albert Caputo MD MD rn Martinez, Eric em1 Umm Rhoades RN RN Anh Fuentes RN RN Shazia Lanza Corrections: (The following items were deleted from the chart) 08:37 08:34 Allergies: Vicodin; [facility] 08:42 08:35 Chief complaint: Patient states: abd pain [facility]
[2024-11-17] MEDS ORDERED: METRONIDAZOLE 500mg IVPB 500 MG/100 ML BAG IV ONE (10:34)
[2024-11-17 11:06] LABS: Blood Morphology Comment NOT SEEN (NOT SEEN); Platelet Estimate ADEQ; White Blood Cell Scan OK (OK)
[2024-11-17 12:06] VITALS: BP 129/59; TEMP 97.8; O2SAT 100
== END 2024-11-17 12:02 | disposition home or self-care (01) ==
LOC: ER 08:24
DX: A09 Infectious gastroenteritis and colitis, unspecified (principal); Z95.0 Presence of cardiac pacemaker
CPT/HCPCS: 85025; 36415; 81003; 83690; 80053; 74177; 96375; 96374; 99284; Q9967; J2470; J2405

== ENCOUNTER 2024-12-31 05:23 | Emergency (ER) | payer OTHER ==
[2024-12-31] MEDS ORDERED: NA CHLORIDE 0.9% 500 ML ONE (05:45)
[2024-12-31] MEDS ORDERED: DIPHENHYDRAMINE 50 MG/ML VIAL ONE (05:45)
[2024-12-31] MEDS ORDERED: METOCLOPRAMIDE 10 MG/2mL INJ ONE (05:45)
[2024-12-31 06:10] LABS: Absolute Basophils 0.1 K/uL (0-0.5); Absolute Eosinophils 0.1 K/uL (0-0.5); Absolute Lymphocytes (CBC) 1.2 K/uL (0.7-4.9); Absolute Monocytes 0.5 K/uL (0.1-1.3); Absolute Neutrophil 3.5 K/uL (1.8-8.0); Eosinophils % 2.6 % (0-4.4); Hematocrit 43.6 % (39.6-49.0); Hemoglobin 14.7 g/dL (13.6-17.9); Lymphocytes % 21.9 % (15.3-44.8); MCH 30.1 pg (27.0-35.0); MCHC 33.6 g/dL (32.0-36.0); MCV 89.6 fL (80-100); MPV 8.4 fL (7.6-11.3); Monocytes % 8.6 % (3.3-12.3); Neutrophils % 65.9 % (41.7-73.7); Nucleated Red Blood Cells % 0.1 % (0-0); Platelets 239 thou/uL (152-406); RBC Red Blood Cell Count 4.86 M/uL (4.33-5.43); Red Cell Distribution Width 15.1 % (12.1-15.2)
--- NOTE | 2024-12-31 06:23 | RAD REPORT ---
EXAM: XR CHEST 1 VIEW HISTORY: 64 years Male COUGH COMPARISON: None. FINDINGS: LUNGS/PLEURA: Hazy bilateral opacities. Central vascular engorgement.. MEDIASTINUM: The mediastinal silhouette is within normal limits. CARDIAC: Stable enlargement. UPPER ABDOMEN: No significant abnormality. BONES: No acute abnormality. LINES/TUBES/OTHER: Pacemaker present. IMPRESSION: Probable pulmonary edema/congestive heart failure. Electronically signed by: Aaron Rudd MD 12/31/2024 06:15 AM [facility] D ue to temporary technical issues with the PACS/[employer] reporting system, reports are being signed by the in-house radiologist without review as a courtesy to ensure prompt reporting the [facility] radiologist is fully responsible for the content of the report. Transcribed Date/Time: 12/31/2024 6:23 AM
[2024-12-31 06:27] LABS: Anion Gap 9.7 mEq/L (5.0-15.0); Potassium 3.7 mEq/L (3.5-5.1)
--- NOTE | 2024-12-31 06:47 | EDPHYS ---
Physician Documentation [facility] Name: Grupo Mcdonald Jr Age: 64 yrs Sex: Male : 1960 Arrival Date: 12/31/2024 Time: 05:23 Bed 3 Private MD: ED Physician Addy Resendiz HPI: 12/31 05:35 This 64 yrs old Male presents to ER via Unassigned with complaints of ec2 headache, lightheadedness. 05:35 Patient arrives today for evaluation of headache and lightheadedness. Patient reports ec2 he is having a headache which he describes as right sided, pressure-like sensation. Denies any falls injuries or trauma. Reports he also has some lightheadedness which he states feels like he is going to pass out. Patient reports feeling some associated nausea as well. Took Tylenol last night for his headache with minimal alleviation in symptoms. Reports history of A-fib, pacemaker, stroke, CHF, hypertension. 05:36 He reports a history of a stroke and states that he has some minimal residual left ec2 upper and lower extremity weakness.. Historical: - Allergies: 05:37 Codeine; lg3 05:37 Vicodin; heart racing; lg3 - Home Meds: 05:37 Nifedipine Oral [Active]; losartan oral [Active]; Metoprolol Tartrate Oral [Active]; lg3 Lasix Oral [Active]; - PMHx: 05:37 asbestosis; Cellulitis; Cerebrovascular accident; Diverticulitis; DVT (pacemaker); lg3 Gout; Hypertension; lymphedema; Myocardial infarction; Pacemaker (stroke); Pre Diabetes; Psoriatic Arthritis; stroke; - PSHx: 05:37 Appendectomy; cataracts; heart cath; knee; pacemaker; lg3 - Immunization history:: Adult Immunizations up to date. - Infectious Disease History:: Denies. - Social history:: Smoking status: Patient denies any tobacco usage or history of. Patient/guardian denies using alcohol, street drugs. ROS: 05:36 Constitutional: as per hpi ec2 Exam: 05:36 Constitutional: GEN: NAD Head: atraumatic Eyes: EOMI Ears: External ears are ec2 normal. CV: regular rate LUNGS: no respiratory distress ABD: non-distended SKIN: no evidence of rashes MSK: no evidence of trauma. Neuro: Cranial nerves II through XII intact, strength intact throughout, no appreciable deficit appreciated Vital Signs: 05:36 BP 140 / 73; Pulse 80; Resp 16 S; Temp 97.7(O); Pulse Ox 98% on R/A; Weight 183.7 kg lg3 (R); Height 6 ft. 2 in. (R); 07:08 BP 150 / 70; Pulse 76; Resp 16; Pulse Ox 99% on R/A; al5 05:36 Body Mass Index 52.00 (183.70 kg, 187.96 cm) lg3 NIH Stroke Scale Scores: 05:41 NIHSS Score: 0 lg3 MDM: 05:26 Medical Screening Exam initiated ec2 05:36 Data reviewed: vital signs, nurses notes. ED course: Patient arrives today for headache ec2 and lightheadedness. Examination yields nonfocal neurologic examination otherwise reassuring hemodynamics. EKG obtained, independently reviewed and interpreted by me, shows normal sinus rhythm, rate of 80, no acute ST segment elevations, right bundle branch block noted, intervals are nonactionable. Will obtain lab work, CT scan of the head and treat the patient symptoms. Differential diagnosis considered include intracranial mass, anemia, electrolyte disturbances, ACS, arrhythmia.. 06:45 ED course: Patient is too large for the CT scan, further discussion with patient, ec2 complaint seems more like lightheadedness and less vertiginous. Doubt intracranial process, patient without any focal deficit, questionable left-sided deficits which are baseline per patient however not significantly appreciable on my examination. On reassessment patient reports marked improvement in his symptoms, improvement in his headache and lightheadedness. Will discharge home have the patient follow-up PCP. Doubt intracranial mass, doubt brain bleed, doubt stroke, accordingly we will forego CT scan of the head at this time. Return precautions given. Instructed to return if symptoms change or worsen and we can further evaluate possible transfer for intracranial imaging.. 02 05:33 Order name: Basic Metabolic Panel; Complete Time: 06:40 ec2 12/31 05:33 Order name: CBC with Diff; Complete Time: 06:40 ec2 12/31 05:33 Order name: Troponin HS; Complete Time: 06:40 ec2 12/31 05:33 Order name: XRAY Chest (1 view) ec2 12/31 05:33 Order name: Cardiac monitoring; Complete Time: 05:42 ec2 12/31 05:33 Order name: EKG - Nurse/Tech; Complete Time: 05:42 ec2 12/31 05:33 Order name: IV Saline Lock; Complete Time: 05:42 ec2 12/31 05:33 Order name: Labs collected and sent; Complete Time: 05:42 ec2 12/31 05:33 Order name: O2 Per Protocol; Complete Time: 05:42 ec2 12/31 05:33 Order name: O2 Sat Monitoring; Complete Time: 05:42 ec2 Administered Medications: 05:52 Drug: NS 0.9% IV 500 ml 500 ml IV at 1 bolus once; to be given as a bolus over 30 lg3 minutes Volume: 500 ml; Route: IV; Rate: 1 bolus; Site: right antecubital; 07:08 Follow up: Response: No adverse reaction; IV Status: Completed infusion; IV Intake: al5 500ml 05:52 Drug: metoCLOPramide IVP 10 mg IVP once; over 1 to 2 minutes Route: IVP; Site: right lg3 antecubital; 07:08 Follow up: Response: No adverse reaction; Marked relief of symptoms al5 05:52 Drug: diphenhydrAMINE IVP 25 mg IVP once Route: IVP; Site: right antecubital; lg3 07:08 Follow up: Response: No adverse reaction; Marked relief of symptoms al5 Disposition Summary: 12/31/24 06:47 Discharge Ordered Notes: Location: Home ec2 Condition: Stable ec2 Diagnosis - Headache ec2 Followup: ec2 - With: Private Physician - When: - Reason: Re-evaluation by your physician Discharge Instructions: - Discharge Summary Sheet ec2 - General Headache Without Cause ec2 Forms: - Medication Reconciliation Form ec2 - Antibiotic Education ec2 - Prescription Opioid Use ec2 - Patient Portal Instructions ec2 - Leadership Thank You Letter ec2 Prescriptions: - Compazine 10 mg Oral Tablet - take 1 tablet ORAL route every 8 hours As needed; 20 tablet; Refills: 0, ec2 Product Selection Permitted NIH Stroke Scale - NIH Stroke Score Date: 12/31/2024 Time: 05:41 Total Score = 0 10. Dysarthria (speech clarity - read or repeat words) - 0(Normal) 11. Extinction and Inattention (visual/tactile/auditory/spatial/personal) - 0(No abnormality) 1a. Level of Consciousness (LOC) - 0(Alert) 1b. Level of Consciousness (LOC) (Month \T\ Age) - 0(Both) 1c. LOC Commands (Open \T\ Closes Eyes/Pens And Pencils Repairer) - 0(Both) 2. Best Gaze (Lateral Gaze Paresis) - 0(Normal) 3. Visual Field Loss - 0(No visual loss) 4. Facial Palsy - 0(Normal) 5a. Left Arm: Motor (10-second hold) - 0(No drift) 5b. Right Arm: Motor (10-second hold) - 0(No drift) 6a. Left Leg: Motor (5-second hold - always test supine) - 0(No drift) 6b. Right Leg: Motor (5-second hold - always test supine) - 0(No drift) 7. Limb Ataxia (finger/nose \T\ heel/dougherty - test with eyes open) - 0(Absent) 8. Sensory Loss (pinprick arms/legs/face) - 0(Normal) 9. Best Language: Aphasia (description/naming/reading) - 0(No aphasia) Initials: lg3 Signatures: Dispatcher [employer] EDMS Cherelle Santos RN RN lg3 Addy Resendiz MD MD ec2 Amanda Rockwell RN al5 Corrections: (The following items were deleted from the chart) 05:34 05:34 BASIC METABOLIC PANEL+C.LAB.BRZ ordered. EDMS EDMS 05:34 05:34 CBC+H.LAB.BRZ ordered. EDMS EDMS 05:34 05:34 Troponin High Sensitivity+C.LAB.BRZ ordered. EDMS EDMS 05:34 05:34 Chest Single View+RAD.RAD.BRZ ordered. EDMS EDMS 05:34 05:34 Head Brain Wo Cont+CT.RAD.BRZ ordered. EDMS EDMS
--- NOTE | 2024-12-31 06:47 | ER ---
Nurse's Notes [facility] Name: Grupo Mcdonald Jr Age: 64 yrs Sex: Male : 1960 Arrival Date: 12/31/2024 Time: 05:23 Bed 3 Private MD: Diagnosis: Headache Presentation: 12/31 05:36 Chief complaint: Patient states: woke up at 0500 with dizziness, headache, SOB and lg3 nausea. Coronavirus screen: Client denies travel out of the [place] in the last 14 days. At this time, the client does not indicate any symptoms associated with coronavirus-19. Ebola Screen: No symptoms or risks identified at this time. Initial Sepsis Screen: Does the patient meet any 2 criteria? No. Patient's initial sepsis screen is negative. Does the patient have a suspected source of infection? No. Patient's initial sepsis screen is negative. Risk Assessment: Do you want to hurt yourself or someone else? Patient reports no desire to harm self or others. Onset of symptoms was December 31, 2024 at 05:00. 05:36 Method Of Arrival: Wheelchair lg3 05:36 Acuity: MARTY 3 lg3 Triage Assessment: 05:37 General: Appears in no apparent distress. comfortable, Behavior is calm, cooperative. lg3 Pain: Complains of pain in head. EENT: No deficits noted. No signs and/or symptoms were reported regarding the EENT system. Neuro: No deficits noted. Carr Agitation-Sedation Scale (RASS): 0 - Alert and Calm Level of Consciousness is awake, alert, obeys commands, Oriented to person, place, time, situation, Kiln Car Repairer are equal bilaterally Moves all extremities. Full function Speech is normal, Facial symmetry appears normal, Reports dizziness, headache. Cardiovascular: No deficits noted. Denies chest pain, Capillary refill < 3 seconds Clubbing of nail beds is absent JVD is absent Patient's skin is warm and dry. Respiratory: No deficits noted. Reports shortness of breath Airway is patent Respiratory effort is even, unlabored, Respiratory pattern is regular, symmetrical. GI: No deficits noted. Abdomen is round non-distended, obese, Reports nausea. : No signs and/or symptoms were reported regarding the genitourinary system. Derm: No deficits noted. No signs and/or symptoms reported regarding the dermatologic system. Skin is intact, is healthy with good turgor, Skin is dry, Skin is normal, Skin temperature is warm. Musculoskeletal: No deficits noted. Circulation, motion, and sensation intact. Range of motion: intact in all extremities. Historical: - Allergies: 05:37 Codeine; lg3 05:37 Vicodin; heart racing; lg3 - Home Meds: 05:37 Nifedipine Oral [Active]; losartan oral [Active]; Metoprolol Tartrate Oral [Active]; lg3 Lasix Oral [Active]; - PMHx: 05:37 asbestosis; Cellulitis; Cerebrovascular accident; Diverticulitis; DVT (pacemaker); lg3 Gout; Hypertension; lymphedema; Myocardial infarction; Pacemaker (stroke); Pre Diabetes; Psoriatic Arthritis; stroke; - PSHx: 05:37 Appendectomy; cataracts; heart cath; knee; pacemaker; lg3 - Immunization history:: Adult Immunizations up to date. - Infectious Disease History:: Denies. - Social history:: Smoking status: Patient denies any tobacco usage or history of. Patient/guardian denies using alcohol, street drugs. Screenin:41 [facility] ED Fall Risk Assessment (Adult) History of falling in the last 3 months, lg3 including since admission No falls in past 3 months (0 pts) Confusion or Disorientation No (0 pts) Intoxicated or Sedated No (0 pts) Impaired Gait Yes (1 pt) Mobility Assist Device Used Yes (1 pt) Altered Elimination No (0 pt) Score/Fall Risk Level 0 - 2 = Low Risk Oriented to surroundings, Maintained a safe environment, Educated pt \T\ family on fall prevention, incl call for assistance when getting out of bed, Assessed \T\ reinforced patient's understanding of fall precautions. Abuse screen: Denies threats or abuse. Denies injuries from another. Nutritional screening: No deficits noted. Tuberculosis screening: No symptoms or risk factors identified. VAN Screening: Arm Drift: Patient shows no arm weakness. Patient is VAN negative. Assessment: 05:41 General: see triage assessment. lg3 06:59 Reassessment: Patient appears in no apparent distress at this time. No changes from al5 previously documented assessment. Patient and/or family updated on plan of care and expected duration. Pain level reassessed. Patient states feeling better. Patient states symptoms have improved. Vital Signs: 05:36 BP 140 / 73; Pulse 80; Resp 16 S; Temp 97.7(O); Pulse Ox 98% on R/A; Weight 183.7 kg lg3 (R); Height 6 ft. 2 in. (R); 07:08 BP 150 / 70; Pulse 76; Resp 16; Pulse Ox 99% on R/A; al5 05:36 Body Mass Index 52.00 (183.70 kg, 187.96 cm) lg3 NIH Stroke Scale Scores: 05:41 NIHSS Score: 0 lg3 ED Course: 05:26 Patient arrived in ED. ec2 05:26 Addy Resendiz MD is Attending Physician. ec2 05:37 Triage completed. lg3 05:37 Arm band placed on right wrist. EKG completed in triage. Results shown to MD. lg3 05:41 Patient has correct armband on for positive identification. Placed in gown. Bed in low lg3 position. Call light in reach. Side rails up X 1. Client placed on continuous cardiac and pulse oximetry monitoring. NIBP monitoring applied. director of product management on. Door closed. Noise minimized. Warm blanket given. Pillow given. 05:41 Initial lab(s) drawn, by ED staff, sent to lab. Inserted saline lock: 20 gauge in right lg3 antecubital area, using aseptic technique. Blood collected. Flushed with 10 mL NS. Patient maintains SpO2 saturation greater than 95% on room air. 05:42 Basic Metabolic Panel Sent. lg3 05:42 CBC with Diff Sent. lg3 05:42 Troponin HS Sent. lg3 05:44 Jf Waterman, RN is Primary Nurse. jb4 06:01 XRAY Chest (1 view) In Process Unspecified. EDMS 07:08 Amanda Rockwell, DIANA is Primary Nurse. al5 07:10 Provided Education on: discharge follow up. al5 07:10 No provider procedures requiring assistance completed. IV discontinued, intact, al5 bleeding controlled, No redness/swelling at site. Pressure dressing applied. Administered Medications: 05:52 Drug: NS 0.9% IV 500 ml 500 ml IV at 1 bolus once; to be given as a bolus over 30 lg3 minutes Volume: 500 ml; Route: IV; Rate: 1 bolus; Site: right antecubital; 07:08 Follow up: Response: No adverse reaction; IV Status: Completed infusion; IV Intake: al5 500ml 05:52 Drug: metoCLOPramide IVP 10 mg IVP once; over 1 to 2 minutes Route: IVP; Site: right lg3 antecubital; 07:08 Follow up: Response: No adverse reaction; Marked relief of symptoms al5 05:52 Drug: diphenhydrAMINE IVP 25 mg IVP once Route: IVP; Site: right antecubital; lg3 07:08 Follow up: Response: No adverse reaction; Marked relief of symptoms al5 Medication: 05:41 VIS not applicable for this client. lg3 Intake: 07:08 IV: 500ml; Total: 500ml. al5 Outcome: 06:47 Discharge ordered by MD. ec2 07:10 Patient left the ED. oe 07:11 Discharged to home ambulatory, al5 07:11 Condition: good 07:11 Discharge instructions given to patient, Instructed on discharge instructions, follow up and referral plans. medication usage, Demonstrated understanding of instructions, follow-up care, medications, Prescriptions given X 1, NIH Stroke Scale - NIH Stroke Score Date: 12/31/2024 Time: 05:41 Total Score = 0 10. Dysarthria (speech clarity - read or repeat words) - 0(Normal) 11. Extinction and Inattention (visual/tactile/auditory/spatial/personal) - 0(No abnormality) 1a. Level of Consciousness (LOC) - 0(Alert) 1b. Level of Consciousness (LOC) (Month \T\ Age) - 0(Both) 1c. LOC Commands (Open \T\ Closes Eyes/Tunnel Elastic Operator Lockstitch) - 0(Both) 2. Best Gaze (Lateral Gaze Paresis) - 0(Normal) 3. Visual Field Loss - 0(No visual loss) 4. Facial Palsy - 0(Normal) 5a. Left Arm: Motor (10-second hold) - 0(No drift) 5b. Right Arm: Motor (10-second hold) - 0(No drift) 6a. Left Leg: Motor (5-second hold - always test supine) - 0(No drift) 6b. Right Leg: Motor (5-second hold - always test supine) - 0(No drift) 7. Limb Ataxia (finger/nose \T\ heel/dougherty - test with eyes open) - 0(Absent) 8. Sensory Loss (pinprick arms/legs/face) - 0(Normal) 9. Best Language: Aphasia (description/naming/reading) - 0(No aphasia) Initials: lg3 Signatures: Dispatcher [employer] Jf Lucero, RN RN jb4 Eren Santoro Lacie RN RN lg3 Addy Resendiz MD MD ec2 Amanda Rockwell RN RN al5
[2024-12-31 09:37] VITALS: TEMP 97.7
[2024-12-31 09:38] VITALS: BP 150/70; O2SAT 99
--- NOTE | 2025-01-01 11:48 | EKG ---
Test Date: 2024-12-31 Test Time: 05:34:09 Adjunct History Instructor: YULIYA MEASUREMENT RESULTS: Intervals: Rate: 80 WY: 318 QRSD: 166 QT: 406 QTc: 468 Raton: P: 33 WY: 318 QRS: 11 T: -37 INTERPRETIVE STATEMENTS: Sinus rhythm with 1st degree AV block Right bundle branch block T wave abnormality, consider inferolateral ischemia Abnormal ECG Compared to ECG 10/16/2024 21:00:24 First degree AV block now present Right bundle-branch block now present T-wave abnormality now present Possible ischemia now present Left-axis deviation no longer present Left ventricular hypertrophy no longer present Early repolarization no longer present Myocardial infarct finding no longer present Electronically Signed On 01-01-25 11:48:09 AUTOMOTIVE SERVICE ASSISTANT by Noel Lopez
== END 2024-12-31 07:10 | disposition home or self-care (01) ==
LOC: ER 05:23
DX: R51.9 Headache, unspecified (principal); I10 Essential (primary) hypertension; I50.9 Heart failure, unspecified; Z95.0 Presence of cardiac pacemaker
CPT/HCPCS: 93005; 85025; 80048; 36415; 84484; 71045; J2765; J1200; J7040

== ENCOUNTER 2025-01-26 13:23 | Emergency (ER) | payer OTHER ==
[2025-01-26] MEDS ORDERED: NA CHLORIDE 0.9% 1,000 ML ONE (14:41)
[2025-01-26 15:02] LABS: Specific Gravity 1.023 (1.005-1.030); Sqamous Epithelial <5 /HPF (None Seen); Urine Bacteria <20 /HPF (<20); Urine Bilirubin NEGATIVE (Negative); Urine Blood Negative (Negative); Urine Clarity Turbid (Clear); Urine Color Yellow (Yellow); Urine Culture Reflex Order NOT NEEDED; Urine Glucose NEGATIVE (Negative); Urine Ketones NEGATIVE (Negative); Urine Microscopic Reflex YN ORDER UMIC; Urine Mucus 1+ /HPF (None Seen); Urine Nitrite NEGATIVE (Negative); Urine Protein NEGATIVE (Negative); Urine RBC <5 /HPF (None Seen); Urine Urobilinogen Normal (Normal); Urine WBC <5 /HPF (<5)
[2025-01-26] MEDS ORDERED: FENTANYL CITR 100 MCG/2 ML ONE (15:04)
[2025-01-26 15:22] LABS: Absolute Basophils 0.1 K/uL (0-0.5); Absolute Eosinophils 0.1 K/uL (0-0.5); Absolute Lymphocytes (CBC) 1.3 K/uL (0.7-4.9); Absolute Monocytes 0.5 K/uL (0.1-1.3); Absolute Neutrophil 4.7 K/uL (1.8-8.0); Basophils % 1.3 % (0-1.3); Eosinophils % 1.6 % (0-4.4); Hematocrit 43.4 % (39.6-49.0); Hemoglobin 14.7 g/dL (13.6-17.9); Lymphocytes % 20.2 % (15.3-44.8); MCH 30.1 pg (27.0-35.0); MCHC 33.8 g/dL (32.0-36.0); MCV 89.1 fL (80-100); MPV 8.2 fL (7.6-11.3); Monocytes % 6.9 % (3.3-12.3); Nucleated Red Blood Cells % 0.1 % (0-0); Platelets 270 thou/uL (152-406); RBC Red Blood Cell Count 4.87 M/uL (4.33-5.43); Red Cell Distribution Width 15.1 % (12.1-15.2)
[2025-01-26 15:27] LABS: Albumin 3.7 g/dL (3.4-5.0); Albumin/Globulin Ratio 0.9 (1.1-1.8); Anion Gap 11.1 mEq/L (5.0-15.0); Bilirubin Total 0.5 mg/dL (0.2-1.0); Globulin 4.3 g/dL (2.3-3.5); Potassium 4.1 mEq/L (3.5-5.1)
--- NOTE | 2025-01-26 16:05 | RAD REPORT ---
EXAMINATION: US RENAL CLINICAL INDICATION: Abdominal pain. Flank pain TECHNIQUE: Real-time ultrasonography of the kidneys performed. COMPARISON: October 2024 CT FINDINGS: Right kidney measures 11 cm with a normal echotexture. Left kidney measures 11 cm with normal echotexture. No hydronephrosis The bladder is poorly distended and not well evaluated. IMPRESSION: No significant abnormalities displayed
[2025-01-26] MEDS ORDERED: NA CHLORIDE 0.9% 100 ML ONE (17:44)
[2025-01-26] MEDS ORDERED: MORPHINE 4 MG/ML SYR ONE (17:44)
[2025-01-26] MEDS ORDERED: PIPERACIL/TAZO 4.5 GM VIAL IV ONE (17:44)
--- NOTE | 2025-01-26 17:52 | EDPHYS ---
Physician Documentation [facility] Name: Grupo Mcdonald Jr Age: 64 yrs Sex: Male : 1960 Arrival Date: 01/26/2025 Time: 13:23 Bed 8 Private MD: ED Physician Jean Carlos Bledsoe HPI: 01/26 14:02 This 64 yrs old Male presents to ER via Ambulatory with complaints of side pain. cp 14:02 The patient complains of pain in the bilateral flank. The pain radiates to the mid back cp area. Onset: The symptoms/episode began/occurred yesterday, and became worse today. Associated signs and symptoms: Pertinent positives: nausea, Pertinent negatives: diarrhea, dysuria, fever, hematuria, vomiting. Severity of pain: in the emergency department the pain is unchanged. 14:02 Patient reports pain worse and started right side abdomen yesterday and no bilateral cp abdomen/flank pain. Historical: - Allergies: 13:51 Codeine; db 13:51 Vicodin; heart racing; db - PMHx: 13:51 Cellulitis; Cerebrovascular accident; Diverticulitis; Gout; Hypertension; lymphedema; db DVT (pacemaker); asbestosis; Pacemaker (stroke); Psoriatic Arthritis; Pre Diabetes; Myocardial infarction; stroke; - PSHx: 13:51 cataracts; heart cath; pacemaker; Appendectomy; knee; db - Immunization history:: Adult Immunizations unknown. - Infectious Disease History:: Denies. - Social history:: Smoking status: Patient denies any tobacco usage or history of. ROS: 14:05 Constitutional: Negative for body aches, chills, fever, poor PO intake, cp 14:05 Eyes: Negative for injury, pain, redness, and discharge, cp 14:05 Cardiovascular: Negative for chest pain, edema, palpitations, 14:05 Respiratory: Negative for cough, shortness of breath, wheezing, 14:05 Abdomen/GI: Positive for abdominal pain, nausea, 14:05 Back: Positive for flank pain, bilaterally, 14:05 Skin: Negative for rash, 14:05 All other systems are negative, cp Exam: 14:10 Constitutional: The patient appears in no acute distress, alert, awake, cp non-diaphoretic, non-toxic, well developed, well nourished, uncomfortable, 14:10 Head/Face: Normocephalic, atraumatic. cp 14:10 Eyes: Periorbital structures: appear normal, Conjunctiva: normal, no exudate, no cp injection, Sclera: no appreciated abnormality, Lids and lashes: appear normal, bilaterally, 14:10 ENT: External ear(s): are unremarkable, Nose: is normal, Mouth: Lips: moist, Oral mucosa: moist, Posterior pharynx: Airway: no evidence of obstruction, patent, 14:10 Neck: ROM/movement: is normal, is supple, without pain, no range of motions limitations, 14:10 Chest/axilla: Inspection: normal, 14:10 Cardiovascular: Rate: normal, Rhythm: regular, JVD: is not appreciated, 14:10 Respiratory: the patient does not display signs of respiratory distress, Respirations: normal, no use of accessory muscles, no retractions, labored breathing, is not present, Breath sounds: are clear throughout, no decreased breath sounds, 14:10 Abdomen/GI: Inspection: obese Bowel sounds: active, all quadrants, Palpation: moderate abdominal tenderness, in the left lower quadrant and left flank, rebound tenderness, is not appreciated, 14:10 Back: pain, that is moderate, of the mid back area, 14:10 Skin: no rash present. 14:10 Neuro: Orientation: to person, place \T\ time. Mentation: is normal, Motor: moves all fours, strength is normal, Sensation: is normal, Vital Signs: 13:49 BP 129 / 75; Pulse 85; Resp 20; Temp 98.2(O); Pulse Ox 97% ; Weight 185.07 kg; Height 6 db ft. 1 in. ; Pain 7/10; 15:35 BP 146 / 82; Pulse 72; Pulse Ox 99% ; ap3 16:14 BP 153 / 71; Pulse 75; Resp 18; Pulse Ox 100% on R/A; ap3 18:56 BP 152 / 65; Pulse 75; Pulse Ox 98% on R/A; ap3 13:49 Body Mass Index 53.83 (185.07 kg, 185.42 cm) db 13:49 Pain Scale: Adult db MDM: 13:47 Medical Screening Exam initiated cp 17:51 Data reviewed: vital signs, nurses notes, lab test result(s), radiologic studies, CT cp scan, I have discussed the patient's presentation/case with the attending Emergency Department Physician; and as a result, I will transfer patient for CT abdomen/pelvis due to PMHX for diverticulitis. 17:51 Counseling: I had a detailed discussion with the patient and/or guardian regarding the cp historical points, exam findings, and any diagnostic results supporting the discharge/admit diagnosis, lab results, radiology results. Response to treatment: the patient's symptoms have mildly improved after treatment. 01/26 14:00 Order name: Urinalysis w/ reflexes; Complete Time: 15:33 [facility] 01/26 17:44 Interpretation: Reviewed. 01/26 14:00 Order name: CBC with Diff; Complete Time: 15:33 [facility] 01/26 14:00 Order name: CMP; Complete Time: 15:33 [facility] 01/26 14:00 Order name: Lipase; Complete Time: 15:33 [facility] 01/26 14:57 Order name: US Rp Exam Complete; Complete Time: 16:12 01/26 16:13 Interpretation: Report reviewed. 01/26 14:00 Order name: IV Saline Lock; Complete Time: 15:11 [facility] 01/26 14:00 Order name: Labs collected and sent; Complete Time: 15:11 jl7 Administered Medications: 15:13 Drug: NS 0.9% IV 1000 ml IV at 1 bolus Per protocol; to be given as a bolus over 60 ap3 minutes Route: IV; Rate: 1 bolus; Site: right antecubital; 17:57 Follow up: IV Status: Completed infusion; IV Intake: 1000ml ap3 15:13 Drug: fentaNYL (PF) IVP 50 mcg IVP once Route: IVP; Site: right antecubital; ap3 17:57 Follow up: Response: No adverse reaction; Pain is decreased ap3 17:56 Drug: Piperacillin-Tazobactam IVPB 4.5 grams IVPB once over 60 mins; (mix in 100 mL NS) ap3 Route: IVPB; Infused Over: 60 mins; Site: right antecubital; 18:55 Follow up: IV Status: Completed infusion; IV Intake: 100ml ap3 17:57 Drug: morphine IVP or IV 4 mg IVP once over 4 mins Route: IVP; Infused Over: 4 mins; ap3 Site: right antecubital; 18:46 Follow up: Response: No adverse reaction; Pain is decreased ap3 Disposition Summary: 01/26/25 17:52 Transfer Ordered Notes: Transfer Location: [facility] cp Reason: Higher level of care cp Condition: Stable cp Problem: new cp Symptoms: have improved cp Accepting Physician: DR Wood(01/26/25 18:56) ap3 Diagnosis - Lower abdominal pain, unspecified cp Forms: - Medication Reconciliation Form cp - SBAR form cp Signatures: Dispatcher [employer] EDMS Jean Carlos Figueroa PA PA cp Leal, Jahala, RN RN jl7 Amanda Bates RN RN ap3 Cathie Martel, RN RN db Corrections: (The following items were deleted from the chart) 14:00 14:00 Urinalysis+U.LAB.BRZ ordered. EDMS EDMS 14:00 14:00 CBC+H.LAB.BRZ ordered. EDMS EDMS 14:00 14:00 COMPREHENSIVE METABOLIC PANEL+C.LAB.BRZ ordered. EDMS EDMS 14:00 14:00 LIPASE+C.LAB.BRZ ordered. EDMS EDMS 14:00 14:00 Stone Protocol+CT.RAD.BRZ ordered. EDMS EDMS 14:52 14:04 Abdomen Pelvis W/Wo Con+CT.RAD.BRZ ordered. EDMS EDMS 18:56 17:52 DR Wood cp ap3
--- NOTE | 2025-01-26 17:52 | ER ---
Nurse's Notes [facility] Name: Grupo Mcdonald Jr Age: 64 yrs Sex: Male : 1960 Arrival Date: 01/26/2025 Time: 13:23 Bed 8 Private MD: Diagnosis: Lower abdominal pain, unspecified Presentation: 01/26 13:49 Chief complaint: Patient states: BILATERAL FLANK PAIN STARTED YESTERDAY WORSE TODAY. db DENIES FEVER. Coronavirus screen: Client denies travel out of the [place] in the last 14 days. At this time, the client does not indicate any symptoms associated with coronavirus-19. Ebola Screen: Patient negative for fever greater than or equal to 101.5 degrees Fahrenheit, and additional compatible Ebola Virus Disease symptoms Patient denies exposure to infectious person. Patient denies travel to an Ebola-affected area in the 21 days before illness onset. No symptoms or risks identified at this time. Initial Sepsis Screen: Does the patient meet any 2 criteria? No. Patient's initial sepsis screen is negative. Does the patient have a suspected source of infection? No. Patient's initial sepsis screen is negative. Risk Assessment: Do you want to hurt yourself or someone else? Patient reports no desire to harm self or others. Onset of symptoms was January 26, 2025. 13:49 Method Of Arrival: Ambulatory db 13:49 Acuity: MARTY 3 db Triage Assessment: 13:49 General: Appears in no apparent distress. uncomfortable, Behavior is calm, cooperative. db Pain: Complains of pain in left low back and right low back. Neuro: Level of Consciousness is awake, alert, obeys commands, Oriented to person, place, time, situation. Respiratory: Airway is patent Respiratory effort is even, unlabored, Respiratory pattern is regular, symmetrical. GI: Reports nausea. Historical: - Allergies: 13:51 Codeine; db 13:51 Vicodin; heart racing; db - PMHx: 13:51 Cellulitis; Cerebrovascular accident; Diverticulitis; Gout; Hypertension; lymphedema; db DVT (pacemaker); asbestosis; Pacemaker (stroke); Psoriatic Arthritis; Pre Diabetes; Myocardial infarction; stroke; - PSHx: 13:51 cataracts; heart cath; pacemaker; Appendectomy; knee; db - Immunization history:: Adult Immunizations unknown. - Infectious Disease History:: Denies. - Social history:: Smoking status: Patient denies any tobacco usage or history of. Screenin:01 [facility] ED Fall Risk Assessment (Adult) History of falling in the last 3 months, ap3 including since admission No falls in past 3 months (0 pts) Confusion or Disorientation No (0 pts) Intoxicated or Sedated No (0 pts) Impaired Gait No (0 pts) Mobility Assist Device Used No (0 pt) Altered Elimination No (0 pt) Score/Fall Risk Level 0 - 2 = Low Risk Oriented to surroundings, Maintained a safe environment, Educated pt \T\ family on fall prevention, incl call for assistance when getting out of bed, Assessed \T\ reinforced patient's understanding of fall precautions, Hourly rounding (assess needs \T\ fall precautionary measures) done, Used ambulatory aids as needed (educated on \T\ assisted with). Abuse screen: Denies threats or abuse. Nutritional screening: No deficits noted. Tuberculosis screening: No symptoms or risk factors identified. Assessment: 14:00 General: Appears in no apparent distress. Behavior is calm, cooperative. Pain: ap3 Complains of pain in back and right low back and left low back Pain currently is 7 out of 10 on a pain scale. Neuro: Level of Consciousness is awake, alert, obeys commands, Oriented to person, place, time, situation. Cardiovascular: Patient's skin is warm and dry. Respiratory: Airway is patent Respiratory effort is even, unlabored, Respiratory pattern is regular, symmetrical. GI: No signs and/or symptoms were reported involving the gastrointestinal system. 16:21 Reassessment: Patient and/or family updated on plan of care and expected duration. Pain ap3 level reassessed. Patient is alert, oriented x 3, equal unlabored respirations, skin warm/dry/pink. General: Appears in no apparent distress. comfortable, Behavior is calm, cooperative, appropriate for age. Neuro: Level of Consciousness is awake, alert, obeys commands, Oriented to person, place. Respiratory: Airway is patent Respiratory effort is even, unlabored, Respiratory pattern is regular, symmetrical. Vital Signs: 13:49 BP 129 / 75; Pulse 85; Resp 20; Temp 98.2(O); Pulse Ox 97% ; Weight 185.07 kg; Height 6 db ft. 1 in. ; Pain 7/10; 15:35 BP 146 / 82; Pulse 72; Pulse Ox 99% ; ap3 16:14 BP 153 / 71; Pulse 75; Resp 18; Pulse Ox 100% on R/A; ap3 18:56 BP 152 / 65; Pulse 75; Pulse Ox 98% on R/A; ap3 13:49 Body Mass Index 53.83 (185.07 kg, 185.42 cm) db 13:49 Pain Scale: Adult db ED Course: 13:28 Patient arrived in ED. al6 13:44 Jean Carlos Figueroa PA is PHCP. cp 13:44 Jean Carlos Bledsoe MD is Attending Physician. cp 13:50 Triage completed. db 13:51 Arm band placed on Patient placed in an exam room. db 14:03 Carson Talbot, DIANA is Primary Nurse. jl7 14:30 Missed attempt(s): 20 gauge in right antecubital area. Bleeding controlled, band aid jl7 applied, catheter tip intact. 14:35 Missed attempt(s): 22 gauge in left antecubital area. Bleeding controlled, band aid jl7 applied, catheter tip intact. 14:40 Urinalysis w/ reflexes Sent. ap3 14:45 Missed attempt(s): 24 gauge in right hand. Bleeding controlled, band aid applied, jl7 catheter tip intact. 15:11 Initial lab(s) drawn, by ED staff, sent to lab. Urine collected: clean catch specimen, jl7 clear. Accessed peripheral vein via ultrasound, utilizing dynamic ultrasound technique using 20G Nexia IV catheter per hospital protocol. Clean \T\ dry. Dressing intact. Good blood return. Flushes easily. inserted by Anh Fuentes RN. 15:56 US Rp Exam Complete In Process Unspecified. EDMS 17:19 [facility] called to initiate transfer, spoke to Sara. ty 17:46 Acceptance given by Sara. ty 18:25 [facility] called to initiate transfer, eta 20 1825. ty 18:54 Report given to brittany at [facility]. ap3 18:55 Patient has correct armband on for positive identification. Provided Education on: ap3 medications prior to administration . 18:55 No provider procedures requiring assistance completed. Patient transferred, IV remains ap3 in place. Administered Medications: 15:13 Drug: NS 0.9% IV 1000 ml IV at 1 bolus Per protocol; to be given as a bolus over 60 ap3 minutes Route: IV; Rate: 1 bolus; Site: right antecubital; 17:57 Follow up: IV Status: Completed infusion; IV Intake: 1000ml ap3 15:13 Drug: fentaNYL (PF) IVP 50 mcg IVP once Route: IVP; Site: right antecubital; ap3 17:57 Follow up: Response: No adverse reaction; Pain is decreased ap3 17:56 Drug: Piperacillin-Tazobactam IVPB 4.5 grams IVPB once over 60 mins; (mix in 100 mL NS) ap3 Route: IVPB; Infused Over: 60 mins; Site: right antecubital; 18:55 Follow up: IV Status: Completed infusion; IV Intake: 100ml ap3 17:57 Drug: morphine IVP or IV 4 mg IVP once over 4 mins Route: IVP; Infused Over: 4 mins; ap3 Site: right antecubital; 18:46 Follow up: Response: No adverse reaction; Pain is decreased ap3 Medication: 18:55 VIS not applicable for this client. ap3 Intake: 17:57 IV: 1000ml; Total: 1000ml. ap3 18:55 IV: 100ml; Total: 1100ml. ap3 Outcome: 17:52 ER care complete, transfer ordered by . cp 18:55 Transferred by ground EMS to [facility], ap3 18:55 Condition: good 18:55 Discharge instructions given to patient, Instructed on the need for transfer, Demonstrated understanding of 18:56 Patient left the ED. ap3 Signatures: Dispatcher [employer] EDMS Jean Carlos Figueroa PA PA cp Leal, Jahala, RN RN jl7 Amanda Bates RN RN ap3 Cathie Martel RN RN db Yandell, Tylor ty Landin, Alissa al6
[2025-01-26 19:34] VITALS: TEMP 98.2
[2025-01-26 19:37] VITALS: BP 152/65; O2SAT 98
== END 2025-01-26 18:56 | disposition short-term general hospital (02) ==
LOC: ER 13:23
DX: R10.32 Left lower quadrant pain (principal); Z95.0 Presence of cardiac pacemaker
CPT/HCPCS: 96365; 96361; 85025; 81001; 36415; 83690; 80053; 76770; 96375; 99285; J3010; J7030

== ENCOUNTER 2025-03-13 07:02 | Observation (INO) | payer OTHER ==
[2025-03-13] MEDS ORDERED: FAMOTIDINE 20 MG/2 ML VIAL IV ONE (07:27)
[2025-03-13] MEDS ORDERED: ASPIRIN 81 MG CHEWABLE TABLET ONE (07:27)
[2025-03-13] MEDS ORDERED: ENOXAPARIN 100 MG/ML SYR SQ ONE (07:50)
--- NOTE | 2025-03-13 07:55 | RAD REPORT ---
Procedure: Chest Single View HISTORY: Cough COMPARISON: December 2024 FINDINGS: The lungs appear clear of acute infiltrate. No significant pleural effusion noted. The heart is mildly enlarged. Pacemaker leads in place. . IMPRESSION: No acute abnormality is displayed.
[2025-03-13 08:01] LABS: Absolute Eosinophils 0.1 K/uL (0-0.5); Absolute Lymphocytes (CBC) 1.1 K/uL (0.7-4.9); Absolute Monocytes 0.4 K/uL (0.1-1.3); Absolute Neutrophil 3.4 K/uL (1.8-8.0); Basophils % 0.9 % (0-1.3); Eosinophils % 2.5 % (0-4.4); Hematocrit 43.4 % (39.6-49.0); Hemoglobin 14.8 g/dL (13.6-17.9); Lymphocytes % 21.2 % (15.3-44.8); MCH 30.8 pg (27.0-35.0); MCV 90.6 fL (80-100); MPV 8.3 fL (7.6-11.3); Monocytes % 8.1 % (3.3-12.3); Neutrophils % 67.3 % (41.7-73.7); Nucleated Red Blood Cells % 0.1 % (0-0); Platelets 267 thou/uL (152-406); RBC Red Blood Cell Count 4.79 M/uL (4.33-5.43); Red Cell Distribution Width 14.5 % (12.1-15.2)
--- NOTE | 2025-03-13 08:14 | EDPHYS ---
Physician Documentation [facility] Name: Grupo Mcdonald Jr Age: 64 yrs Sex: Male : 1960 Arrival Date: 03/13/2025 Time: 07:02 Bed 4 Private MD: Quirino Talbot; Omer Yan ED Physician Jean Carlos Bledsoe HPI: 03/13 07:18 This 64 yrs old Male presents to ER via Ambulatory with complaints of luann Shortness Of Breath. 07:18 The patient has shortness of breath with light activity. Onset: The symptoms/episode luann began/occurred 2 day(s) ago. Duration: The symptoms are continuous, and are steadily getting worse. The patient's shortness of breath is aggravated by exertion. Associated signs and symptoms: Pertinent positives: non-productive cough. Severity of symptoms: At their worst the symptoms were mild moderate in the emergency department the symptoms are unchanged. The patient has experienced similar episodes in the past, several times. Historical: - Allergies: 07:16 Codeine; db 07:16 Vicodin; heart racing; db - Home Meds: 07:16 Lasix Oral [Active]; Metoprolol Tartrate Oral [Active]; losartan oral [Active]; db Nifedipine Oral [Active]; - PMHx: 07:16 Cerebrovascular accident; Cellulitis; asbestosis; DVT (pacemaker); Gout; lymphedema; db Pacemaker (stroke); Pre Diabetes; Myocardial infarction; Hypertension; stroke; Psoriatic Arthritis; Diverticulitis; - PSHx: 07:16 Appendectomy; heart cath; knee; cataracts; pacemaker; db - Immunization history:: Adult Immunizations unknown. - Infectious Disease History:: Denies. - Social history:: Smoking status: Patient denies any tobacco usage or history of. ROS: 07:19 Constitutional: Negative for fever, chills, and weight loss, Eyes: Negative for injury, luann pain, redness, and discharge, ENT: Negative for injury, pain, and discharge, Neck: Negative for injury, pain, and swelling, Respiratory: Negative for shortness of breath, cough, wheezing, and pleuritic chest pain, Abdomen/GI: Negative for abdominal pain, nausea, vomiting, diarrhea, and constipation, Back: Negative for injury and pain, : Negative for injury, bleeding, discharge, and swelling, MS/Extremity: Negative for injury and deformity, Skin: Negative for injury, rash, and discoloration, Neuro: Negative for headache, weakness, numbness, tingling, and seizure, Psych: Negative for depression, anxiety, suicide ideation, homicidal ideation, and hallucinations, Allergy/Immunology: Negative for hives, rash, and allergies, Endocrine: Negative for neck swelling, polydipsia, polyuria, polyphagia, and marked weight changes, Hematologic/Lymphatic: Negative for swollen nodes, abnormal bleeding, and unusual bruising, 07:19 Cardiovascular: Positive for chest pain, Exam: :19 Constitutional: This is a well developed, well nourished patient who is awake, alert, luann and in no acute distress. Head/Face: Normocephalic, atraumatic. Eyes: Pupils equal round and reactive to light, extra-ocular motions intact. Lids and lashes normal. Conjunctiva and sclera are non-icteric and not injected. Cornea within normal limits. Periorbital areas with no swelling, redness, or edema. ENT: Nares patent. No nasal discharge, no septal abnormalities noted. Tympanic membranes are normal and external auditory canals are clear. Oropharynx with no redness, swelling, or masses, exudates, or evidence of obstruction, uvula midline. Mucous membranes moist. Neck: Trachea midline, no thyromegaly or masses palpated, and no cervical lymphadenopathy. Supple, full range of motion without nuchal rigidity, or vertebral point tenderness. No Meningismus. Chest/axilla: Normal chest wall appearance and motion. Nontender with no deformity. No lesions are appreciated. Cardiovascular: Regular rate and rhythm with a normal S1 and S2. No gallops, murmurs, or rubs. Normal PMI, no JVD. No pulse deficits. Respiratory: Lungs have equal breath sounds bilaterally, clear to auscultation and percussion. No rales, rhonchi or wheezes noted. No increased work of breathing, no retractions or nasal flaring. Abdomen/GI: Soft, non-tender, with normal bowel sounds. No distension or tympany. No guarding or rebound. No evidence of tenderness throughout. Back: No spinal tenderness. No costovertebral tenderness. Full range of motion. Male : Normal genitalia with no discharge or lesions. Skin: Warm, dry with normal turgor. Normal color with no rashes, no lesions, and no evidence of cellulitis. MS/ Extremity: Pulses equal, no cyanosis. Neurovascular intact. Full, normal range of motion., bilateral aka Neuro: Awake and alert, GCS 15, oriented to person, place, time, and situation. Cranial nerves II-XII grossly intact. Motor strength 5/5 in all extremities. Sensory grossly intact. Cerebellar exam normal. Normal gait. Psych: Awake, alert, with orientation to person, place and time. Behavior, mood, and affect are within normal limits. 07:19 ECG was reviewed by the Attending Physician. 07:22 Musculoskeletal/extremity: DVT Exam: No signs of deep vein thrombosis. no pain, no luann swelling, no tenderness, negative Homans' sign noted on exam, no appreciated bluish discoloration, no erythema, no increased warmth, Vital Signs: 07:10 BP 150 / 72; Pulse 82; Resp 16; Temp 98; Pulse Ox 98% ; Weight 189.6 kg; Height 6 ft. 1 db in. ; Pain 0/10; 07:30 BP 135 / 69; Pulse 82; Resp 18; Pulse Ox 97% on 2 lpm NC; db 08:00 BP 126 / 68; Pulse 78; Resp 16; Pulse Ox 97% on 2 lpm NC; db 09:30 BP 129 / 59; Pulse 75; Resp 16; Pulse Ox 99% on NC; db 10:00 BP 127 / 70; Pulse 73; Resp 16; Pulse Ox 99% on 2 lpm NC; db 11:00 BP 133 / 61; Pulse 72; Resp 18; Pulse Ox 98% on 2 lpm NC; db 12:00 BP 121 / 78; Pulse 73; Resp 16; Pulse Ox 99% on 2 lpm NC; db 13:00 BP 134 / 77; Pulse 78; Resp 16; Pulse Ox 99% on NC; db 13:30 BP 105 / 75; Pulse 70; Resp 16; Pulse Ox 100% on NC; db 16:12 BP 119 / 73; Pulse 75; Resp 16; Pulse Ox 99% on 2 lpm NC; bp 07:10 Body Mass Index 55.15 (189.60 kg, 185.42 cm) db 07:10 Pain Scale: Adult db MDM: 07:08 Medical Screening Exam initiated luann 07:20 Differential diagnosis: CHF exacerbation, abnormal EKG, acute pericarditis, anxiety, luann coronary artery disease Cholelithiasis costochondritis, esophagitis, pneumonia, pulmonary embolus, stable angina, unstable angina, pneumonia, Pneumothorax Psychogenic Unstable Angina. Antibiotic administration: Not indicated. HEART Score: ECG: Non specific repolarization disturbance / LBTB / PM (1), Age: > 45 and < 65 years (1), Risk Factors: > or = 3 Risk factors for atherosclerotic disease (2), [Hypercholesterolemia] [Hypertension] [+ Family HX] [Obesity] Troponin: < or = 1 x Normal Limit (0). The patient was given aspirin in the Emergency Department. [place] Risk Score: 1 - Three or more CAD risk factors, 1 - ASA use in past 7 days, 1 - Recent [<24hrs] Severe Angina, TOTAL SCORE = 3. Immunization status: Influenza vaccine: Data reviewed: vital signs, nurses notes, lab test result(s), EKG, radiologic studies, plain films. Consideration of Admission/Observation Patient was admitted/placed on observation. Escalation of care including admission/observation considered. I considered the following discharge prescriptions or medication management in the emergency department Medications were administered in the Emergency Department. See MAR. Independent interpretation of the following test(s) in the Emergency Department EKG: See my EKG interpretation above. Test considered but Not performed: CT: NO CT CHEST. Historians other than the Patient: PT WELL INFORMED. Care significantly affected by the following chronic conditions: Diabetes, Hypertension, Obesity. Counseling: I had a detailed discussion with the patient and/or guardian regarding the historical points, exam findings, and any diagnostic results supporting the discharge/admit diagnosis, lab results, radiology results, the need for further work-up and treatment in the hospital. 03/13 07:09 Order name: Basic Metabolic Panel; Complete Time: 08: [facility] 03/13 07:09 Order name: CBC with Diff; Complete Time: 08:12 [facility] 03/13 07:09 Order name: LFT's; Complete Time: 08: [facility] 03/13 07:09 Order name: Magnesium; Complete Time: 08: [facility] 03/13 07:09 Order name: NT PRO-BNP; Complete Time: 08:41 [facility] 03/13 07:09 Order name: PT-INR; Complete Time: 08:41 [facility] 03/13 07:09 Order name: Troponin HS; Complete Time: 08:41 [facility] 03/13 07:09 Order name: Blood Culture Adult (2) [facility] 03/13 07:09 Order name: COVID-19 Ag + Flu A+B Ag; Complete Time: 08:41 [facility] 03/13 07:09 Order name: Lactate w/ 2H reflex if indic. [facility] 03/13 07:09 Order name: Urinalysis w/ reflexes; Complete Time: 08:41 [facility] 03/13 08:46 Order name: Ghost Lactate-NO COLLECT Timer [facility] 03/13 11:36 Order name: Lactate Sepsis 2 HR Follow-up [facility] 03/13 14:47 Order name: Comprehensive Metabolic Panel [facility] 03/13 14:47 Order name: Comprehensive Metabolic Panel [facility] 03/13 14:47 Order name: Comprehensive Metabolic Panel [facility] 03/13 14:47 Order name: Magnesium [facility] 03/13 14:47 Order name: Magnesium [facility] 03/13 07:09 Order name: XRAY Chest (1 view); Complete Time: 08:12 [facility] 03/13 08:47 Order name: Echo w/ Doppler [facility] 03/13 14:47 Order name: Physical Therapy Consult [facility] 03/13 07:09 Order name: Cardiac monitoring; Complete Time: 07:23 [facility] 03/13 07:09 Order name: EKG - Nurse/Tech; Complete Time: 07:22 [facility] 03/13 07:09 Order name: IV Saline Lock; Complete Time: 07:23 [facility] 03/13 07:09 Order name: Labs collected and sent; Complete Time: 07:23 [facility] 03/13 07:09 Order name: O2 Per Protocol; Complete Time: 07:23 [facility] 03/13 07:09 Order name: O2 Sat Monitoring; Complete Time: 07:23 [facility] EC:19 Rate is 81 beats/min. Rhythm is regular. QRS [place] is Normal. [place] interval is normal. QRS luann interval is normal. QT interval is normal. No Q waves. T waves are Normal. No ST changes noted. Clinical impression: NSR w/ Non-specific ST/T Changes and No evidence of ischemia. Interpreted by me. Reviewed by me. Administered Medications: 07:33 Drug: Aspirin PO Chewable Tablet 324 mg PO once; 81 mg tablets x 4 Route: PO; db 16:13 Follow up: Response: No adverse reaction bp 07:47 Drug: Famotidine IVP 20 mg IVP once; dilute with 10 mL 0.9% NaCl; give over 2 minutes bp Route: IVP; Site: right wrist; 16:13 Follow up: Response: No adverse reaction bp 07:59 Drug: Enoxaparin Sub-Q 100 mg Sub-Q once Route: Sub-Q; Site: right lower abdomen; bp 16:14 Follow up: Response: No adverse reaction bp 09:15 Drug: Rocephin IV 1 grams IV at per protocol once; Given slow IV push per pharmacy bp instructions Route: IV; Rate: per protocol; Site: right wrist; 16:14 Follow up: IV Status: Completed infusion bp 10:40 Not Given (CHFf): ns 0.9% (30 ml/kg) 30 ml/kg IV at bolus once; Sepsis Protocol; to be bp given as a bolus over 90 minutes Disposition Summary: 03/13/25 08:14 Hospitalization Ordered Notes: Hospitalization Status: Observation luann Provider: Elton Rush cha Location: Telemetry/MedSurg (observation) luann Condition: Fair luann Problem: new luann Symptoms: have improved luann Bed/Room Type: Standard luann Room Assignment: 217(03/13/25 14:56) bd Diagnosis - Chest pain, unspecified luann - Dyspnea luann - Obesity, unspecified luann - Presence of cardiac pacemaker luann - Cardiomegaly luann Forms: - Medication Reconciliation Form luann - SBAR form luann - Leadership Thank You Letter luann Signatures: Dispatcher [employer] EDElen Pollack Corey, MD MD cha Peltier, Brian, RN RN Cathie Casillas RN RN db Corrections: (The following items were deleted from the chart) 07:10 07:09 BASIC METABOLIC PANEL+C.LAB.BRZ ordered. EDMS EDMS 07:10 07:09 CBC+H.LAB.BRZ ordered. EDMS EDMS 07:10 07:09 HEPATIC FUNCTION+C.LAB.BRZ ordered. EDMS EDMS 07:10 07:09 MAGNESIUM+C.LAB.BRZ ordered. EDMS EDMS 07:10 07:09 PROBNP+C.LAB.BRZ ordered. EDMS EDMS 07:10 07:09 PROTIME (+INR)+COAG.LAB.BRZ ordered. EDMS EDMS 07:10 07:09 Troponin High Sensitivity+C.LAB.BRZ ordered. EDMS EDMS 07:10 07:09 BLOOD CULTURE*+BA.LAB.BRZ ordered. EDMS EDMS 07:10 07:09 COVID-19 Ag + Flu A+B Ag+I.LAB.BRZ ordered. EDMS EDMS 07:10 07:09 LACTATE+C.LAB.BRZ ordered. EDMS EDMS 07:10 07:09 Urinalysis+U.LAB.BRZ ordered. EDMS EDMS 07:10 07:10 Chest Single View+RAD.RAD.BRZ ordered. EDMS EDMS 14:56 08:14 luann bd
--- NOTE | 2025-03-13 08:14 | ER ---
Nurse's Notes [facility] Name: Grupo Mcdonald Jr Age: 64 yrs Sex: Male : 1960 Arrival Date: 03/13/2025 Time: 07:02 Bed 4 Private MD: Quirino Talbot; Omer Yan Diagnosis: Chest pain, unspecified;Dyspnea;Obesity, unspecified;Presence of cardiac pacemaker;Cardiomegaly Presentation: 03/13 07:10 Chief complaint: Patient states: SOB W/PRESSURE WOKE UP AT 0500 THIS AM WITH SOB. FEELS db LIKE HAS EXTRA FLUID. TAKES LASIX. Coronavirus screen: Client denies travel out of the [place] in the last 14 days. At this time, the client does not indicate any symptoms associated with coronavirus-19. Ebola Screen: Patient negative for fever greater than or equal to 101.5 degrees Fahrenheit, and additional compatible Ebola Virus Disease symptoms Patient denies exposure to infectious person. Patient denies travel to an Ebola-affected area in the 21 days before illness onset. No symptoms or risks identified at this time. Initial Sepsis Screen: Does the patient meet any 2 criteria? No. Patient's initial sepsis screen is negative. Does the patient have a suspected source of infection? No. Patient's initial sepsis screen is negative. Risk Assessment: Do you want to hurt yourself or someone else? Patient reports no desire to harm self or others. Onset of symptoms was March 13, 2025. 07:10 Method Of Arrival: Ambulatory db 07:10 Acuity: MARTY 2 db Triage Assessment: 07:16 General: Appears in no apparent distress. uncomfortable, Behavior is calm, cooperative. db Pain: Denies pain. Neuro: Level of Consciousness is awake, alert, obeys commands, Oriented to person, place, time, situation. Respiratory: Reports shortness of breath at rest Airway is patent Respiratory effort is even, unlabored, Respiratory pattern is regular, symmetrical, Onset: The symptoms/episode began/occurred this morning, the patient has moderate shortness of breath. Historical: - Allergies: 07:16 Codeine; db 07:16 Vicodin; heart racing; db - Home Meds: 07:16 Lasix Oral [Active]; Metoprolol Tartrate Oral [Active]; losartan oral [Active]; db Nifedipine Oral [Active]; - PMHx: 07:16 Cerebrovascular accident; Cellulitis; asbestosis; DVT (pacemaker); Gout; lymphedema; db Pacemaker (stroke); Pre Diabetes; Myocardial infarction; Hypertension; stroke; Psoriatic Arthritis; Diverticulitis; - PSHx: 07:16 Appendectomy; heart cath; knee; cataracts; pacemaker; db - Immunization history:: Adult Immunizations unknown. - Infectious Disease History:: Denies. - Social history:: Smoking status: Patient denies any tobacco usage or history of. Screenin:19 [facility] ED Fall Risk Assessment (Adult) History of falling in the last 3 months, db including since admission No falls in past 3 months (0 pts) Confusion or Disorientation No (0 pts) Intoxicated or Sedated No (0 pts) Impaired Gait No (0 pts) Mobility Assist Device Used No (0 pt) Altered Elimination No (0 pt) Score/Fall Risk Level 0 - 2 = Low Risk Oriented to surroundings, Maintained a safe environment. Abuse screen: Denies threats or abuse. Denies injuries from another. Nutritional screening: No deficits noted. Tuberculosis screening: No symptoms or risk factors identified. Assessment: 07:18 Reassessment: Patient appears in no apparent distress at this time. Patient and/or db family updated on plan of care and expected duration. Pain level reassessed. Patient is alert, oriented x 3, equal unlabored respirations, skin warm/dry/pink. Reassessment: SEE TRIAGE FOR INITIAL ASSESSMENT. 09:00 Reassessment: Patient appears in no apparent distress at this time. Patient and/or db family updated on plan of care and expected duration. Pain level reassessed. Patient is alert, oriented x 3, equal unlabored respirations, skin warm/dry/pink. 11:00 Reassessment: Patient appears in no apparent distress at this time. Patient and/or db family updated on plan of care and expected duration. Pain level reassessed. Patient is alert, oriented x 3, equal unlabored respirations, skin warm/dry/pink. 12:00 Reassessment: Patient appears in no apparent distress at this time. Patient and/or db family updated on plan of care and expected duration. Pain level reassessed. Patient is alert, oriented x 3, equal unlabored respirations, skin warm/dry/pink. Neuro: Level of Consciousness is awake, alert, obeys commands, Oriented to person, place, time, situation. 13:00 Reassessment: Patient appears in no apparent distress at this time. Patient and/or db family updated on plan of care and expected duration. Pain level reassessed. Patient is alert, oriented x 3, equal unlabored respirations, skin warm/dry/pink. Respiratory: 14:12 Reassessment: Patient appears in no apparent distress at this time. Patient and/or db family updated on plan of care and expected duration. Pain level reassessed. Patient is alert, oriented x 3, equal unlabored respirations, skin warm/dry/pink. Reassessment: PT SITTING IN CHAIR NEXT TO BED. General: Appears in no apparent distress. comfortable, Behavior is calm, cooperative. Respiratory: Airway is patent Respiratory effort is even, unlabored, Respiratory pattern is regular, symmetrical. 16:12 Reassessment: No changes from previously documented assessment. Patient is alert, bp oriented x 3, equal unlabored respirations, skin warm/dry/pink. 16:14 Cardiovascular: Rhythm is regular. bp Vital Signs: 07:10 BP 150 / 72; Pulse 82; Resp 16; Temp 98; Pulse Ox 98% ; Weight 189.6 kg; Height 6 ft. 1 db in. ; Pain 0/10; 07:30 BP 135 / 69; Pulse 82; Resp 18; Pulse Ox 97% on 2 lpm NC; db 08:00 BP 126 / 68; Pulse 78; Resp 16; Pulse Ox 97% on 2 lpm NC; db 09:30 BP 129 / 59; Pulse 75; Resp 16; Pulse Ox 99% on NC; db 10:00 BP 127 / 70; Pulse 73; Resp 16; Pulse Ox 99% on 2 lpm NC; db 11:00 BP 133 / 61; Pulse 72; Resp 18; Pulse Ox 98% on 2 lpm NC; db 12:00 BP 121 / 78; Pulse 73; Resp 16; Pulse Ox 99% on 2 lpm NC; db 13:00 BP 134 / 77; Pulse 78; Resp 16; Pulse Ox 99% on NC; db 13:30 BP 105 / 75; Pulse 70; Resp 16; Pulse Ox 100% on NC; db 16:12 BP 119 / 73; Pulse 75; Resp 16; Pulse Ox 99% on 2 lpm NC; bp 07:10 Body Mass Index 55.15 (189.60 kg, 185.42 cm) db 07:10 Pain Scale: Adult db ED Course: 07:02 Patient arrived in ED. [email or web address] 07:03 Quirino Talbot MD is Private Physician. [email or web address] 07:03 Omer Yan MD is Private Physician. [email or web address] 07:04 Jose Joseph, RN is Primary Nurse. bp 07:08 Jean Carlos Bledsoe MD is Attending Physician. luann 07:16 Triage completed. db 07:16 Arm band placed on Patient placed in an exam room. db 07:25 EKG done, by ED staff, reviewed by Jean Carlos Bledsoe MD. af3 07:30 XRAY Chest (1 view) In Process Unspecified. EDMS 07:45 Initial lab(s) drawn, by me, sent to lab. First set of blood cultures drawn by me, bp Second set of blood cultures drawn by me, COVID swab sent to lab. Flu and/or RSV swab sent to lab. 07:48 Inserted saline lock: 22 gauge in right wrist, using aseptic technique. bp 08:13 Elton Rush MD is Hospitalizing Provider. luann 14:13 Patient has correct armband on for positive identification. Bed in low position. Call db light in reach. Side rails up X 1. Client placed on continuous cardiac and pulse oximetry monitoring. NIBP monitoring applied. youth nutritional monitor on. Pulse ox on. NIBP on. 16:12 No provider procedures requiring assistance completed. Patient admitted, IV remains in bp place. Administered Medications: 07:33 Drug: Aspirin PO Chewable Tablet 324 mg PO once; 81 mg tablets x 4 Route: PO; db 16:13 Follow up: Response: No adverse reaction bp 07:47 Drug: Famotidine IVP 20 mg IVP once; dilute with 10 mL 0.9% NaCl; give over 2 minutes bp Route: IVP; Site: right wrist; 16:13 Follow up: Response: No adverse reaction bp 07:59 Drug: Enoxaparin Sub-Q 100 mg Sub-Q once Route: Sub-Q; Site: right lower abdomen; bp 16:14 Follow up: Response: No adverse reaction bp 09:15 Drug: Rocephin IV 1 grams IV at per protocol once; Given slow IV push per pharmacy bp instructions Route: IV; Rate: per protocol; Site: right wrist; 16:14 Follow up: IV Status: Completed infusion bp 10:40 Not Given (CHFf): ns 0.9% (30 ml/kg) 30 ml/kg IV at bolus once; Sepsis Protocol; to be bp given as a bolus over 90 minutes Medication: 16:12 VIS not applicable for this client. bp Output: 14:16 Urine: 1000ml (Voided); Total: 1000ml. db Outcome: 08:14 Decision to Hospitalize by Provider. luann 16:12 Admitted to Med/surg accompanied by tech, via wheelchair, bp 16:12 Condition: stable 16:12 Instructed on the need for admit, 16:14 Patient left the ED. bp Signatures: Dispatcher [employer] EDMS Jean Carlos Bledsoe MD MD cha Peltier, Brian, RN RN Kristel [email or web address] Cathie Martel, RN RN db Renita Hanson3
[2025-03-13 08:18] LABS: PT Prothrombin Time 12.4 SECONDS (10-13.0); Protime INR 1.09
[2025-03-13 08:18] LABS: Urine Bilirubin NEGATIVE (Negative); Urine Blood Negative (Negative); Urine Clarity Clear (Clear); Urine Color Colorless (Yellow); Urine Glucose NEGATIVE (Negative); Urine Ketones NEGATIVE (Negative); Urine Microscopic Reflex YN NO UMIC; Urine Nitrite NEGATIVE (Negative); Urine Protein NEGATIVE (Negative); Urine Urobilinogen Normal (Normal); Urine pH 5.5 (5.0-7.0)
[2025-03-13 08:20] LABS: Influenza A Ag Negative; Influenza B Ag Negative; SARS-CoV-2 Antigen Rapid Res Negative (Negative)
[2025-03-13 08:21] LABS: ALT/SGPT 27 U/L (16-61); AST/SGOT 13 U/L (15-37); Albumin 3.5 g/dL (3.4-5.0); Albumin/Globulin Ratio 0.8 (1.1-1.8); Alkaline Phosphatase 96 U/L (45-117); Anion Gap 9.6 mEq/L (5.0-15.0); BUN Blood Urea Nitrogen 28 mg/dL (7-18); Bicarbonate 25 mEq/L (21-32); Bilirubin Total 0.4 mg/dL (0.2-1.0); Globulin 4.2 g/dL (2.3-3.5); Glomerular Filtration Rate 86 ml/min (=/>90); Glucose Level 125 mg/dL (74-106); Magnesium 2.1 mg/dL (1.6-2.4); NT PRO-BNP 150 pg/mL (<125); Potassium 3.6 mEq/L (3.5-5.1); Protein, Total 7.7 g/dL (6.4-8.2); Sodium Level 137 mEq/L (136-145); Troponin High Sensitivity 17.2 pg/mL (<58.9)
[2025-03-13 08:38] LABS: Bilirubin Direct < 0.2 mg/dL (0-0.2); Bilirubin Indirect, Calculated 0.2 mg/dL (0.2-0.8)
[2025-03-13] MEDS ORDERED: NA CHLORIDE 0.9% 100 ML ONE (10:29)
[2025-03-13] MEDS ORDERED: CEFTRIAXONE 1000 MG/VIAL ONE (10:29)
--- NOTE | 2025-03-13 12:08 | EKG ---
Test Date: 2025-03-13 Test Time: 07:15:47 Tavern Keeper: AM MEASUREMENT RESULTS: Intervals: Rate: 81 VA: 326 QRSD: 166 QT: 412 QTc: 478 [place]: P: 59 VA: 326 QRS: -39 T: -37 INTERPRETIVE STATEMENTS: Sinus rhythm with 1st degree AV block Left axis deviation Right bundle branch block T wave abnormality, consider inferolateral ischemia Abnormal ECG Compared to ECG 12/31/2024 05:34:09 Left-axis deviation now present T-wave abnormality still present Possible ischemia still present Electronically Signed On 03-13-25 12:07:57 CDT by Noel Lopez
--- NOTE | 2025-03-13 12:42 | ECHO ---
HEIGHT: ft in WEIGHT: lb oz DATE OF STUDY: 03/13/[address]: Jean Carlos Bledsoe MD 2-DIMENSIONAL: YES M.MODE: YES DOPPLER: YES COLOR FLOW: YES TDS: YES PORTABLE: YES DEFINITY: BUBBLE STUDY: DIAGNOSIS: CHEST PAIN CARDIAC HISTORY: CATHERIZATION: YES SURGERY: NO PROSTHETIC VALVE: NO PACEMAKER: YES MEASUREMENTS (cm) DIASTOLIC (NORMALS) SYSTOLIC (NORMALS) IVSd 1.4 (0.6-1.2) LA Diam 3.3 (1.9-4.0) LVEF 50-55% LVIDd 5.4 (3.5-5.7) LVIDs 3.9 (2.0-3.5) %FS 26% LVPWd 1.4 (0.6-1.2) Ao Diam 3.5 (2.0-3.7) 2 DIMENSIONAL ASSESSMENT: RIGHT ATRIUM: NORMAL LEFT ATRIUM: NORMAL RIGHT VENTRICLE: NORMAL LEFT VENTRICLE: NORMAL, MILD LEFT VENTRICULAR HYPERTROPHY TRICUSPID VALVE: TRACE TRICUSPID REGURGITATION MITRAL VALVE: NORMAL PULMONIC VALVE: TRACE PULMONIC REGURGITATION AORTIC VALVE: NORMAL PERICARDIAL EFFUSION: NONE AORTIC ROOT: NORMAL LEFT VENTRICULAR WALL MOTION: POOR IMAGES, HARD TO ASSESS WALL MOTION DOPPLER/COLOR FLOW: NORMAL COMMENTS: 1. POOR IMAGES, HARD TO ASSESS WALL MOTION, GROSSLY LEFT VENTRICULAR FUNCTION LOOKS NORMAL, EJECTION FRACTION 50-55% 2. NORMAL DIASTOLIC FUNCTION TECHNOLOGIST: NELY PADILLA; ADRIENNE LOW
[2025-03-13] MEDS ORDERED: ACETAMINOPHEN 325 MG TABLET PO PRN (14:04)
[2025-03-13] MEDS ORDERED: ALBUTEROL 2.5 MG/3 ML NEB SOL NEB PRN (14:04)
--- NOTE | 2025-03-13 14:04 | P.HP ---
Patient History Date of Service: 03/13/25 Reason for admission: Shortness of breath, CHF exacerbation, weight gain. History of Present Illness: Patient is a 65-year-old male with past medical history of stroke 7 years ago with no residual deficit noted at this time, bilateral lymphedema lower e xtremities, asbestos, cellulitis bilateral lower extremities, and abdominal wall, gout, Psoriatec arthritis, diverticulitis, CHF, prediabetes, myocardial infarction, hypertension, morbid obesity. Patient presents to the ER today complaining of shortness of breath with no associated chest pain, increased weight gain for which he states he has gained 6 to 7 pounds within a day, states he noticed his weight gain as of yesterday, and complain of fatigue. Patient states he usually weighs himself daily, and when he took his weight yesterday he noticed an increase of 6-7 pounds, with progressive shortness of breath which then prompted him to report to the ER today. On examination, patient with bilateral 2+ pitting edema, bilateral lungs with no adventitious breath sounds, respirations even and nonlabored, no JVD noted. Allergies codeine Allergy (Verified 07/31/24 13:05) heart racing hydrocodone [From Vicodin] Allergy (Verified 07/31/24 13:05) heart racing acetaminophen [From Vicodin] Adverse Reaction (Intermediate, Verified 07/31/24 13:05) heart racing Home Medications: Allopurinol 300 mg PO DAILY 04/08/23 Aspirin Chewable [Aspirin Chewable*] 81 mg PO DAILY 11/12/23 Potassium Chloride 20 meq PO DAILY 11/12/23 Omeprazole [Prilosec] 40 mg PO DAILY 04/06/24 Ezetimibe [Zetia] 10 mg PO DAILY 07/31/24 Metoprolol Succinate [Toprol Xl] 25 mg PO DAILY 07/31/24 NIFEdipine [Nifedipine ER] 30 mg PO BID 07/31/24 Ranolazine [Ranolazine ER] 500 mg PO BID 07/31/24 Spironolactone [Aldactone] 25 mg PO DAILY 07/31/24 - Past Medical/Surgical History Diabetic: No -: HTN -: Chronic lymphedema -: Morbid obesity -: History of asbestosis exposure -: History of CVA -: Gout -: Psoriatic arthritis -: Osteoarthritis -: Diverticulosis -: pre diabetic -: appendectomy -: carpaltunnel surg in L hand -: L knee "clean up" -: vein procedure in Both legs -: Cataract Sx -: pacemaker Psychosocial/ Personal History: Patient lives with son. He is a - Family History Mother -: Heart disease, Hypertension Father -: Cancer Notes: lung cancer - Social History Alcohol use: No CD- Drugs: No Caffeine use: Yes Review of Systems Other: 10 point review of systems performed with pertinent positives and negatives noted in the HPI above. Remainder is performed and negative. Physical Examination - Physical Exam General: Oriented x3 HEENT: Atraumatic, Normocephalic, PERRLA, Scleral icterus Neck: Supple, JVD not distended, No Thyromegaly Respiratory: Clear to auscultation bilaterally Cardiovascular: Normal pulses, Regular rate/rhythm, Normal S1 S2, Edema Capillary refill: >2 Seconds Gastrointestinal: Normal bowel sounds, Soft and benign Musculoskeletal: No clubbing Integumentary: No breakdown Neurological: Normal speech, Sensation intact, Normal affect Lymphatics: No axilla or inguinal lymphadenopathy External genitalia: No edema, No lesions, No masses, Non-tender Rectal: Normal - Studies Laboratory Data (last 24 hrs) 03/13/25 03/13/25 03/13/25 07:45 07:45 07:45 WBC 5.10 Hgb 14.8 Hct 43.4 Plt Count 267 PT 12.4 INR 1.09 Sodium 137 Potassium 3.6 BUN 28 H Creatinine 0.99 Glucose 125 H Magnesium 2.1 Total Bilirubin 0.4 AST 13 L ALT 27 Alkaline Phosphatase 96 Male Exam - Male Exam Scrotum: No lesions, No edema, Non-tender Testicular exam: Normal size Prostate: Non-tender Penile exam: No lesions Anus & perineum: No lesion Assessment and Plan - Plan Assessment and planning. General: Patient is 64-year-old male who reports to the ER complaining of shortness of breath with no associated chest pain, fatigue, weight gain of 6 to 7 pounds within the past 24 hours stated by the patient, no JVD, no adventitious breath sounds noted bilateral, patient in no respiratory distress this time. Chest x-ray negative (1) Acute on chronic CHF exacerbation/ Chronic HTN Patient is currently on Lasix 40 mg p.o. twice daily, states he has been taking his Lasix as ordered, but states within the past 24 hours he has gained between 6 to 7 pounds.On patient assessment, patient have 2+ bilateral lower extremities pitting edema. -Order Lasix 40 mg IV twice daily starting tomorrow. -Fluid restriction of 2000 mL every 24 hours. -Daily weight and record. -Telemetry. -Continue home medication metoprolol 25 mg p.o. daily. -Continue home medication losartan 100 mg p.o. daily. -Continue home medication nifedipine 60 mg p.o. daily. (2) chronic gout. -Continue home medication allopurinol 3 mg p.o. daily. (3) Explained entire treatment plan to the patient, solicit questions answered and voiced understanding (4) chronic asbestos pulmonary. On admission assessment, patient respirations even, unlabored, lungs clear bilateral. -Continue patient on p.r.n nebulizer treatment. Patient states he takes neb treatment at home secondary to above-noted disease. Discharge Plan: Halfway - Advance Directives Does patient have a Living Will: No Does patient have a Durable POA for Healthcare: No
[2025-03-13 17:01] VITALS: BMI 55.1
[2025-03-13 17:57] VITALS: O2SAT 99
[2025-03-14 04:55] LABS: Albumin 3.2 g/dL (3.4-5.0); Albumin/Globulin Ratio 0.9 (1.1-1.8); Anion Gap 8.7 mEq/L (5.0-15.0); Bilirubin Total 0.6 mg/dL (0.2-1.0); Globulin 3.7 g/dL (2.3-3.5); Magnesium 2.2 mg/dL (1.6-2.4); Potassium 3.7 mEq/L (3.5-5.1); Protein, Total 6.9 g/dL (6.4-8.2)
[2025-03-14] MEDS: FUROSEMIDE 40 MG/4 ML VIAL IV SCH (05:53)
[2025-03-14] MEDS: METOPROLOL TAR 25 MG TAB PO SCH (05:54)
[2025-03-14] MEDS: NIFEDIPINE XL 60 MG TABLET PO SCH (08:57)
[2025-03-14] MEDS: ENOXAPARIN 40 MG/0.4 ML SQ SCH (08:57)
[2025-03-14] MEDS: allopurinoL 300 MG TAB PO SCH (08:57)
[2025-03-14] MEDS: LOSARTAN POTASSIUM 50 MG TABLET PO SCH (08:58)
[2025-03-14] MEDS: ASPIRIN 81 MG CHEWABLE TABLET PO SCH (08:58)
--- NOTE | 2025-03-14 10:25 | P.PN ---
Date of Service: 03/14/25 Subjective: feeling better today lower extremity edema significantly improved per patient denies any new / worsening problems reports eating a lot of salty foods Physical Exam: GEN: Alert, oriented, NAD CV: Regular rate and rhythm, no edema Pulm: Nonlabored respirations on room air, clear bilaterally ABD: soft, nontender, nondistended Neuro: Normal speech, normal affect Problem List: Acute on chronic systolic / diastolic CHF exacerbation Nonobstructive CAD Hx LUE DVT (08/07/24) Chronic lymphedema / Venous stasis dermatitis Hypertension Hx Gastritis, Erosive Esophagitis, Gastric ulcer Hx sick sinus syndrome with pacemaker in place Hx Osteoarthritis Hx Gout Hx CVA Hx asbestos hx c. diff colitis (Aug 2024) Acute on chronic systolic / diastolic CHF exacerbation Nonobstructive CAD on admission, presents with worsening shortness of breath associated with lower extremity edema, weight gain. (~6-7lbs in 24 hours) Had Recent LHC on 10/22/24 which noted 60% ostial LCx, 80% OM1 stenosis. No obstructive CAD in the LM, LAD and RCA. No stents were placed. 03/13 - given IV rocephin, aspirin 324 mg, Lovenox 100 mg in ED Echocardiogram (03/13/25): Poor study. EF 50-55%, trace TR, mild left ventricular hypertrophy. Difficult to assess wall motion. Prior TTE @[facility] (10/18/24):40-44% EF, grade 2 diastolic dysfunction, RV moderately enlarged with preserved function, mild LA, no significant valvular a bnormalities, small posterior pericardial effusion measuring 4 mm CXR negative 03/14 - Start IV lasix 40 mg BID Continue home metoprolol, asa 81 mg Hx LUE DVT (08/07/24) venous u/s noted LUE DVT back in Sep 2024. He was noted to have EGD 1 week prior to DVT. was off aspirin for procedure. No hx DVT prior to this episode He developed hemoptysis and was transferred to [facility] from here 10/16/24. Hemoptysis resolved at [facility] with discontinuation of eliquis. He was told to only take baby aspirin after repeat venous u/s negative for DVT on 10/17/24 resume home asa 81 mg Chronic lymphedema / Venous stasis dermatitis Hypertension Hx Gastritis, Erosive Esophagitis, Gastric ulcer Hx sick sinus syndrome with pacemaker in place Hx Osteoarthritis Hx Gout Hx CVA Hx asbestos hx c. diff colitis (Aug 2024) confirm home meds 03/14 - resume home allopurinol, protonix, asa 81 mg, metoprolol, losartan, nifedipine VTE: Lovenox Code: Full Dispo: Home Time Spent Managing Pts Care (In Minutes): 55
[2025-03-14] MEDS ORDERED: ALBUTEROL 2.5 MG/3 ML NEB SOL NEB PRN (12:30)
[2025-03-14 13:08] VITALS: BP 155/84; TEMP 98.7
[2025-03-14] MEDS ORDERED: PANTOPRAZOLE 40MG TABLET PO SCH (16:30)
[2025-03-15] MEDS ORDERED: PANTOPRAZOLE 40MG TABLET PO SCH ×2 (06:30)
--- NOTE | 2025-03-15 06:49 | P.DS ---
Admission Date: 03/13/25 Discharge Date: 03/14/25 Disposition: ROUTINE DISCHARGE Discharge Condition: GOOD Reason for Admission: Shortness of breath, CHF exacerbation, weight gain. Brief History of Present Illness: 65yo M, PMH: CVA 7 years ago with no residual deficit noted at this time, bilateral lymphedema lower extremities, asbestos, cellulitis bilateral lower extremities, and abdominal wall, gout, Psoriatec arthritis, diverticulitis, CHF, prediabetes, myocardial infarction, hypertension, morbid obesity. Patient presents to the ER today complaining of shortness of breath with no associated chest pain, increased weight gain for which he states he has gained 6 to 7 pounds within a day, states he noticed his weight gain as of yesterday, and complain of fatigue. Patient states he usually weighs himself daily, and when he took his weight yesterday he noticed an increase of 6-7 pounds, with progressive shortness of breath which then prompted him to report to the ER today. On examination, patient with bilateral 2+ pitting edema, bilateral lungs with no adventitious breath sounds, respirations even and nonlabored, no JVD noted. Hospital Course: Problem List: Acute on chronic systolic / diastolic CHF exacerbation Nonobstructive CAD Hx LUE DVT (08/07/24) Chronic lymphedema / Venous stasis dermatitis Hypertension Hx Gastritis, Erosive Esophagitis, Gastric ulcer Hx sick sinus syndrome with pacemaker in place Hx Osteoarthritis Hx Gout Hx CVA Hx asbestos hx c. diff colitis (Aug 2024) Physician discharge instructions: Patient presented with worsening shortness of breath, lower extremity edema associated with ~10lb weight gain secondary to acute on chronic CHF exacerbation. Secondary to increased salty oral intake. Chest xray was negative for any acute findings. 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 He was started on IV lasix 40 mg and had improvement of his symptoms. He reported significant urine output associated with 10lbs weight loss compared to admission within the first 24 hours of admission. Lower extremity edema and shortness of breath improved with diuretics. Patient ambulated around the floor on day of discharge without any significant shortness of breath. Patient was feeling better, breathing more comfortably on room air, lower extremity edema improved, and was deemed stable for discharge. Recommend limiting salty foods to reduce recurrent episodes. Check weight around the same time each day. Keep daily log of readings to take to follow up appointments for further adjustments of medications. Medications: continue home meds. Discussed with patient, regarding taking an extra lasix pill if retaining >2lbs of water weight for 2 days in a row. Follow up: PCP 3-5 days Cardiology in 2-4 weeks Please call to schedule / confirm appointments Physical Exam: GEN: Alert, oriented, NAD CV: Regular rate and rhythm, no edema Pulm: Nonlabored respirations on room air, clear bilaterally ABD: soft, nontender, nondistended Neuro: Normal speech, normal affect Vital Signs/Physical Exam: Temp Pulse Resp BP Pulse Ox 98.7 F 73 18 155/84 H 95 03/14/25 12:00 03/14/25 12:00 03/14/25 12:00 03/14/25 12:00 03/14/25 12:00 Laboratory Data at Discharge: WBC 5.10 thou/uL (4.3-10.9) 03/13/25 07:45 Hgb 14.8 g/dL (13.6-17.9) 03/13/25 07:45 Hct 43.4 % (39.6-49.0) 03/13/25 07:45 Plt Count 267 thou/uL (152-406) 03/13/25 07:45 PT 12.4 SECONDS (10-13.0) 03/13/25 07:45 INR 1.09 03/13/25 07:45 Sodium 140 mEq/L (136-145) 03/14/25 04:13 Potassium 3.7 mEq/L (3.5-5.1) 03/14/25 04:13 BUN 24 mg/dL (7-18) H 03/14/25 04:13 Creatinine 0.87 mg/dL (0.70-1.30) 03/14/25 04:13 Glucose 109 mg/dL (74-106) H 03/14/25 04:13 Magnesium 2.2 mg/dL (1.6-2.4) 03/14/25 04:13 Total Bilirubin 0.6 mg/dL (0.2-1.0) 03/14/25 04:13 AST 13 U/L (15-37) L 03/14/25 04:13 ALT 23 U/L (16-61) 03/14/25 04:13 Alkaline Phosphatase 87 U/L (45-117) 03/14/25 04:13 Home Medications: Allopurinol 300 mg PO DAILY 04/08/23 Aspirin Chewable [Aspirin Chewable*] 81 mg PO DAILY 11/12/23 Potassium Chloride 20 meq PO BID 11/12/23 Omeprazole [Prilosec] 40 mg PO DAILY 04/06/24 Metoprolol Succinate [Toprol Xl] 25 mg PO DAILY 07/31/24 NIFEdipine [Nifedipine ER] 60 mg PO BID 07/31/24 Furosemide 40 mg PO BID 03/13/25 Losartan Potassium [Cozaar] 100 mg PO 1X 03/13/25 Physician Discharge Instructions: Physician discharge instructions: Patient presented with worsening shortness of breath, lower extremity edema associated with ~10lb weight gain secondary to acute on chronic CHF exacerbation. Secondary to increased salty oral intake. Chest xray was negative for any acute findings. 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 He was started on IV lasix 40 mg and had improvement of his symptoms. He reported significant urine output associated with 10lbs weight loss compared to admission within the first 24 hours of admission. Lower extremity edema and shortness of breath improved with diuretics. Patient ambulated around the floor on day of discharge without any significant shortness of breath. Patient was feeling better, breathing more comfortably on room air, lower extremity edema improved, and was deemed stable for discharge. Recommend limiting salty foods to reduce recurrent episodes. Check weight around the same time each day. Keep daily log of readings to take to follow up appointments for further adjustments of medications. Medications: continue home meds. Discussed with patient, regarding taking an extra lasix pill if retaining >2lbs of water weight for 2 days in a row. Follow up: PCP 3-5 days Cardiology in 2-4 weeks Please call to schedule / confirm appointments Followup: Quirino Talbot MD [Primary Care Provider] - 1-2 Weeks Time spent managing pt's care (in minutes): 45
== END 2025-03-14 15:53 | disposition home or self-care (01) ==
LOC: ER 07:02 → ERHOLD 14:04 → 2ND 15:20
PROVIDERS: ADMIT Hospitalist; ATTEND Hospitalist
DX: I50.43 Acute on chronic combined systolic (congestive) and diastolic (congestive) heart failure (principal); I25.10 Atherosclerotic heart disease of native coronary artery without angina pectoris; I89.0 Lymphedema, not elsewhere classified; I10 Essential (primary) hypertension; K29.70 Gastritis, unspecified, without bleeding; K22.10 Ulcer of esophagus without bleeding; K25.9 Gastric ulcer, unspecified as acute or chronic, without hemorrhage or perforation; M19.90 Unspecified osteoarthritis, unspecified site; M10.9 Gout, unspecified; J61 Pneumoconiosis due to asbestos and other mineral fibers; R63.5 Abnormal weight gain; L03.116 Cellulitis of left lower limb; I51.7 Cardiomegaly; R07.9 Chest pain, unspecified; R06.00 Dyspnea, unspecified; L03.115 Cellulitis of right lower limb; Z86.718 Personal history of other venous thrombosis and embolism; Z68.42 Body mass index [BMI] 45.0-49.9, adult; Z11.52 Encounter for screening for COVID-19; Z88.5 Allergy status to narcotic agent; Z86.73 Personal history of transient ischemic attack (TIA), and cerebral infarction without residual deficits; Z79.82 Long term (current) use of aspirin; Z95.0 Presence of cardiac pacemaker
CPT/HCPCS: 96365; 93005; 93306; 87040 ×2; 85025; 80048; 36415; 83735 ×2; 85610; 80076; 83605 ×2; 81003; 84484 ×2; 80053; 83880; 71045; 97116; 97161; 96375; 96372; 99285; 96366; 87428; J1650 ×2; J1938 ×2; J0696; G0378

== ENCOUNTER 2025-06-25 07:03 | Inpatient (IN) | payer OTHER ==
[2025-06-25] MEDS ORDERED: ONDANSETRON 4 MG/2 ML VIAL ONE (07:34)
[2025-06-25] MEDS ORDERED: NA CHLORIDE 0.9% 1,000 ML ONE (07:35)
[2025-06-25] MEDS ORDERED: MORPHINE 4 MG/ML SYR ONE (07:35)
[2025-06-25] MEDS ORDERED: ACETAMINOPHEN 500 MG TAB ONE (07:35)
[2025-06-25] MEDS ORDERED: CEFEPIME 2 GM VIAL ONE (07:35)
[2025-06-25] MEDS ORDERED: NA CHLORIDE 0.9% 100 ML ONE (07:35)
--- NOTE | 2025-06-25 08:15 | RAD REPORT ---
EXAMINATION: CT Abdomen Pelvis Wo Contrast CLINICAL INDICATION: Male, 64 years old. Abd pain;Fever TECHNIQUE: CT abdomen and pelvis was performed, without IV contrast, as per department protocol. Axia l, sagittal and coronal reconstructions were obtained. One or more of the following dose reduction techniques were used: Automated exposure control, adjustment of the mA and kV according to the patien t size, and iterative reconstruction. Unless otherwise specified, incidental findings do not require dedicated imaging follow-up. COMPARISON: 11/17/2024 FINDINGS: The lack of intravenous contrast limits the sensitivity of this exam for evaluation of solid visceral organs, vascular structures, and retroperitoneum. LOWER CHEST: The visualized lung bases are clear. Trace pericardial effusion, stable. LIVER: Normal in size and contour. No focal lesion. BILIARY SYSTEM: No suspicious abnormalities. SPLEEN: Normal size. No focal lesion. PANCREAS: No mass, ductal dilation, or jose r-pancreatic fluid. ADRENALS: Normal; no mass. KIDNEYS AND URETERS: Normal size and contour. No hydronephrosis. URINARY BLADDER: Normal contour. GASTROINTESTINAL TRACT: No evidence of bowel obstruction, significant free fluid, free air or abscess . Mild distal colonic diverticulosis. APPENDIX: Normal appendix. LYMPH NODES: No lymphadenopathy. MUSCULOSKELETAL: No acute or suspicious osseous abnormality. ADDITIONAL FINDINGS: None. IMPRESSION: No acute or concerning abnormalities in the abdomen or pelvis, with evaluation limited by lack of IV contrast.
--- NOTE | 2025-06-25 08:20 | RAD REPORT ---
EXAMINATION: ONE VIEW CHEST XR CLINICAL INDICATION: Male, 64 years old.,FEVER TECHNIQUE: Frontal chest projection is submitted. Examination is limited by patient positioning and t echnique. COMPARISON: 06/01/2025 FINDINGS: The lungs are well inflated with stable right perihilar and basilar streaky opacities. No pneumothor ax or sizable effusion. The heart is normal in size. Mediastinal contours are unremarkable. IMPRESSION: Stable right perihilar and basilar streaky opacities, could reflect reactive airway changes or atelec tasis.
[2025-06-25 08:30] LABS: Absolute Lymphocytes (CBC) 0.3 K/uL (0.7-4.9); Hematocrit 45.6 % (39.6-49.0); Hemoglobin 15.2 g/dL (13.6-17.9); MCH 30.3 pg (27.0-35.0); MCHC 33.4 g/dL (32.0-36.0); MCV 90.9 fL (80-100); MPV 8.8 fL (7.6-11.3); Nucleated RBC Absolute Count 0.0 (0-0); Nucleated Red Blood Cells % 0.0 % (0-0); RBC Red Blood Cell Count 5.02 M/uL (4.33-5.43); White Blood Count 16.90 thou/uL (4.3-10.9)
[2025-06-25 08:40] LABS: Influenza A Ag Negative; Influenza B Ag Negative; SARS-CoV-2 Antigen Rapid Res Negative (Negative)
[2025-06-25 08:47] LABS: ALT/SGPT 20.0 U/L (16-61); AST/SGOT 12.0 U/L (15-37); Albumin 3.6 g/dL (3.4-5.0); Albumin/Globulin Ratio 0.9 (1.1-1.8); Alkaline Phosphatase 114.0 U/L (45-117); Anion Gap 8.8 mEq/L (5.0-15.0); BUN Blood Urea Nitrogen 18.0 mg/dL (7-18); Globulin 4.0 g/dL (2.3-3.5); Glucose Level 151.0 mg/dL (74-106); NT PRO-BNP 441.0 pg/mL (<125); Potassium 3.8 mEq/L (3.5-5.1); Troponin High Sensitivity 33.0 pg/mL (<58.9)
[2025-06-25 08:57] LABS: PT Prothrombin Time 13.0 SECONDS (10-13.0); PTT, Activated Partial Thromb 24.3 SECONDS (27.2-37.4); Protime INR 1.16
[2025-06-25 09:05] LABS: Sqamous Epithelial <5 /HPF (None Seen); Urine Crystals Unidentified Few /HPF (None Seen); Urine Culture Reflex Order REFLEXED; Urine Microscopic Reflex YN ORDER UMIC; Urine WBC Clump Rare /HPF (None Seen); Urine Yeast (Budding) Few /HPF (None Seen)
--- NOTE | 2025-06-25 09:27 | EDPHYS ---
Physician Documentation [facility] Name: Grupo Mcdonald Jr Age: 64 yrs Sex: Male : 1960 Arrival Date: 06/25/2025 Time: 07:03 Bed 7 Private MD: ED Physician Sunita Griffiths HPI: 06/25 07:22 This 64 yrs old Male presents to ER via Wheelchair with complaints of Dizziness, sp3 Urinary Problem, Diarrhea. 07:24 64-year-old male with history of asbestosis, CVA, OR, hypertension, hyperlipidemia, sp3 diabetes, prior UTI/pyelonephritis, presents to the ED with chief complaint suprapubic abdominal pain, right flank pain, copious diarrhea, fever and concerns of UTI recurrent. He denies any other symptoms including headache, neck pain, trauma, chest pain, shortness of breath, upper back pain, syncope, rash, bleeding or any other signs or symptoms on ROS at this time.. Historical: - Allergies: 07:19 Codeine; ap3 07:19 Latex; ap3 07:19 Vicodin; heart racing; ap3 - PMHx: 07:26 asbestosis; Cellulitis; Cerebrovascular accident; Diverticulitis; DVT (pacemaker); ap3 Gout; Hypertension; lymphedema; Myocardial infarction; Pacemaker (stroke); Pre Diabetes; Psoriatic Arthritis; stroke; - PSHx: 07:26 Appendectomy; cataracts; heart cath; knee; pacemaker; ap3 - Immunization history:: Adult Immunizations up to date. - Infectious Disease History:: Denies. - Social history:: Smoking status: Patient denies any tobacco usage or history of. ROS: 07:25 Eyes: Negative for injury, pain, redness, and discharge, ENT: Negative for injury, sp3 pain, and discharge, Neck: Negative for injury, pain, and swelling, Cardiovascular: Negative for chest pain, palpitations, and edema, Respiratory: Negative for shortness of breath, cough, wheezing, and pleuritic chest pain, MS/Extremity: Negative for injury and deformity, Skin: Negative for injury, rash, and discoloration, Neuro: Negative for headache, weakness, numbness, tingling, and seizure, Psych: Negative for depression, anxiety, suicide ideation, homicidal ideation, and hallucinations, Allergy/Immunology: Negative for hives, rash, and allergies, Endocrine: Negative for neck swelling, polydipsia, polyuria, polyphagia, and marked weight changes, 07:25 All other systems are negative, Exam: 07:25 Constitutional: This is a well developed, well nourished patient who is awake, alert, sp3 and in no acute distress. Head/Face: Normocephalic, atraumatic. Eyes: Pupils equal round and reactive to light, extra-ocular motions intact. Lids and lashes normal. Conjunctiva and sclera are non-icteric and not injected. Cornea within normal limits. Periorbital areas with no swelling, redness, or edema. Neck: Trachea midline, no thyromegaly or masses palpated, and no cervical lymphadenopathy. Supple, full range of motion without nuchal rigidity, or vertebral point tenderness. No Meningismus. Chest/axilla: Normal chest wall appearance and motion. Nontender with no deformity. No lesions are appreciated. Cardiovascular: Regular rate and rhythm with a normal S1 and S2. No gallops, murmurs, or rubs. Normal PMI, no JVD. No pulse deficits. Respiratory: Lungs have equal breath sounds bilaterally, clear to auscultation and percussion. No rales, rhonchi or wheezes noted. No increased work of breathing, no retractions or nasal flaring. Back: No spinal tenderness. No costovertebral tenderness. Full range of motion. Skin: Warm, dry with normal turgor. Normal color with no rashes, no lesions, and no evidence of cellulitis. MS/ Extremity: Pulses equal, no cyanosis. Neurovascular intact. Full, normal range of motion. Neuro: Awake and alert, GCS 15, oriented to person, place, time, and situation. Cranial nerves II-XII grossly intact. Motor strength 5/5 in all extremities. Sensory grossly intact. Cerebellar exam normal. Normal gait. Psych: Awake, alert, with orientation to person, place and time. Behavior, mood, and affect are within normal limits. 07:25 Abdomen/GI: Diffuse abdominal pain bilateral lower quadrants without peritoneal signs, rebound or guarding. Pulse 120 in a setting of 100.5 fever., 07:33 ECG was reviewed by the Attending Physician. EKG demonstrates sinus tachycardia at 115 sp3 bpm with QTc of 511, nonspecific interventricular delay, T wave inversions inferiorly nonspecific diffuse ST/T changes without evidence of acute ischemia, and leftward axis. Vital Signs: 07:17 BP 140 / 78; Pulse 120; Resp 19; Temp 100.5; Pulse Ox 97% on R/A; Weight 185.3 kg (M); hb Height 6 ft. 1 in. ; Pain 5/10; 07:47 Weight 185.3 kg (M); hb 07:59 BP 153 / 79; Pulse 115; Resp 18; Pulse Ox 97% on R/A; ph 09:20 BP 142 / 76; Pulse 110; Resp 20; Pulse Ox 98% on R/A; ph 09:21 Temp 98.9(O); ph 10:30 BP 149 / 70; Pulse 97; Resp 18; Pulse Ox 98% on R/A; ph 11:30 BP 151 / 69; Pulse 97; Resp 18; Temp 98.1; Pulse Ox 100% on R/A; ph 07:17 Body Mass Index 53.90 (185.30 kg, 185.42 cm) hb 07:17 Pain Scale: Adult hb MDM: 07:12 Medical Screening Exam initiated sp3 07:26 Data reviewed: vital signs, nurses notes, old medical records, lab test result(s), EKG, sp3 radiologic studies. ED course: 64-year-old male with fever, abdominal pain and diarrhea. Patient meets SIRS criteria and sepsis order set was activated. Differential diagnosis includes urosepsis, UTI/pyelonephritis spectrum, ureterolithiasis/kidney stone spectrum, gastroenteritis, dehydration, lactic acidosis, electrolyte abnormality, among others. I am not highly suspicious of ACS, TIA/CVA spectrum, or any other critical process. Workup will include CT scan of the abdomen pelvis noncontrast, chest x-ray, full sepsis order set labs including lactate, and treatment with IV fluid resuscitation and antibiotics including cefepime. Disposition probable admission.. 09:24 ED course: UA demonstrates infection giving final diagnosis urosepsis with lactic sp3 acidosis. Patient's heart rate is improved and patient is now afebrile after fluid bolus. This will count as reevaluation for sepsis after fluid bolus. We will continue monitoring, and admit patient to hospitalist service.. 06/25 07:22 Order name: BNP; Complete Time: 08:51 sp3 06/25 07:22 Order name: Blood Culture Adult (2) sp3 / 07:22 Order name: CBC with Diff sp3 / 07:22 Order name: CMP; Complete Time: 08:51 sp3 06/25 07:22 Order name: Lactate w/ 2H reflex if indic.; Complete Time: 08:51 sp3 06/25 07:22 Order name: Protime (+inr); Complete Time: 09:24 sp3 06/25 07:22 Order name: Ptt, Activated; Complete Time: 09:24 sp3 06/25 07:22 Order name: Troponin HS; Complete Time: 08:51 sp3 06/25 07:27 Order name: COVID-19 Ag + Flu A+B Ag; Complete Time: 08:42 sp3 06/25 08:51 Order name: Ghost Lactate-NO COLLECT Timer EDMS / 08:52 Order name: UA Rfx Miguel Cult if indicated; Complete Time: 09:24 sp3 08 09:11 Order name: Urine Culture EDMS 08/ 10:25 Order name: CBC Smear Scan EDMS /06 10:29 Order name: CBC with Automated Diff EDMS 08/06 10:29 Order name: CBC with Automated Diff EDMS 08/06 10:29 Order name: Comprehensive Metabolic Panel EDMS 08/06 10:29 Order name: Comprehensive Metabolic Panel EDMS 08/06 10:29 Order name: Lipid Profile EDMS 08/06 10:29 Order name: Lipid Profile EDMS 08/06 10:29 Order name: Troponin High Sensitivity EDMS 08/06 10:29 Order name: Troponin High Sensitivity EDMS 08/06 10:29 Order name: Troponin High Sensitivity EDMS 08/06 11:56 Order name: Lactate Sepsis 2 HR Follow-up EDMS 08/06 07:22 Order name: Chest Single View XRAY; Complete Time: 08:29 sp3 06/25 07:22 Order name: CT Abd/Pelvis - Without Contrast; Complete Time: 08:29 sp3 06/25 07:22 Order name: Cardiac monitoring; Complete Time: 08:19 sp3 06/25 07:22 Order name: EKG - Nurse/Tech; Complete Time: 07:33 sp3 06/25 07:22 Order name: IV Saline Lock - Large Bore; Complete Time: 07:33 sp3 06/25 07:22 Order name: Labs collected and sent; Complete Time: 07:33 sp3 06/25 07:22 Order name: O2 Per Protocol; Complete Time: 07:57 sp3 08 07:22 Order name: O2 Sat Monitoring; Complete Time: 07:56 sp3 06/25 07:22 Order name: Vital Signs; Complete Time: 07:56 sp3 06/25 07:22 Order name: NPO; Complete Time: 07:57 sp3 Administered Medications: 07:56 Drug: morphine IVP or IV 4 mg IVP once over 4 mins; PRN pain x 1 Route: IVP; Infused ph Over: 4 mins; Site: right hand; 08:30 Follow up: Response: No adverse reaction ph 07:57 Drug: Acetaminophen PO 1000 mg PO once Route: PO; ph 13:59 Follow up: Response: No adverse reaction ph 07:57 Drug: NS 0.9% IV (30 ml/kg) 30 ml/kg IV at bolus once; Sepsis Protocol; to be given as ph a bolus over 90 minutes Route: IV; Rate: bolus; Site: right hand; 09:30 Follow up: Response: No adverse reaction; IV Status: Completed infusion ph 07:57 Drug: Ondansetron IVP 4 mg IVP once; over 2 minutes Route: IVP; Site: right hand; ph 08:30 Follow up: Response: No adverse reaction ph 08:45 Drug: Cefepime IVPB 2 grams IVPB at 200 ml/hr once over 30 mins; (mix in NS 100 mL) ph Route: IVPB; Rate: 200 ml/hr; Infused Over: 30 mins; Site: left antecubital; 09:15 Follow up: Response: No adverse reaction; IV Status: Completed infusion ph Disposition Summary: 06/25/25 09:26 Hospitalization Ordered Notes: Hospitalization Status: Inpatient Admission sp3 Condition: Stable sp3 Problem: an acute exacerbation sp3 Symptoms: have worsened sp3 Bed/Room Type: Standard sp3 Provider: Issac Coffman(06/25/25 09:40) sp3 Location: Telemetry/MedSurg (Inpatient)(06/25/25 13:05) bd Room Assignment: [facility](06/25/25 13:05) bd Diagnosis - Urosepsis, UTI, fever, lactic acidosis sp3 Forms: - Medication Reconciliation Form sp3 - SBAR form sp3 - Leadership Thank You Letter sp3 Critical care time excluding procedures: 09:25 Critical care time: Bedside Care: 10 minutes, Consultation: 10 minutes, Family sp3 Intervention: 10 minutes. Total time: 30 minutes Signatures: Dispatcher [employer] EDMS Elen Richmond Mónica Olvera, RN RN ph Anh Fuentes, RN RN hb Amanda Bates, RN RN ap3 Sunita Griffiths MD MD sp3 Corrections: (The following items were deleted from the chart) 07:23 07:23 PROBNP+C.LAB.BRZ ordered. EDMS EDMS 07:23 07:23 BLOOD CULTURE*+BA.LAB.BRZ ordered. EDMS EDMS 07:23 07:23 CBC+H.LAB.BRZ ordered. EDMS EDMS 07:23 07:23 COMPREHENSIVE METABOLIC PANEL+C.LAB.BRZ ordered. EDMS EDMS 07:23 07:23 LACTATE+C.LAB.BRZ ordered. EDMS EDMS 07:23 07:23 PROTIME (+INR)+COAG.LAB.BRZ ordered. EDMS EDMS 07:23 07:23 PTT, ACTIVATED+COAG.LAB.BRZ ordered. EDMS EDMS 07:23 07:23 Troponin High Sensitivity+C.LAB.BRZ ordered. EDMS EDMS 07:23 07:23 Chest Single View+RAD.RAD.BRZ ordered. EDMS EDMS 07:23 07:23 Abdomen Pelvis Wo Con+CT.RAD.BRZ ordered. EDMS EDMS 09:40 09:26 Patricio Barnes sp3 sp3 11:54 09:26 Telemetry/MedSurg (Inpatient) sp3 hb 11:54 09:26 sp3 hb 13:05 11:54 [facility] ER HOLD hb bd 13:05 11:54 ERHOLD- hb bd
--- NOTE | 2025-06-25 09:27 | ER ---
Nurse's Notes [facility] Name: Grupo Mcdonald Jr Age: 64 yrs Sex: Male : 1960 Arrival Date: 06/25/2025 Time: 07:03 Bed 7 Private MD: Diagnosis: Urosepsis, UTI, fever, lactic acidosis Presentation: 06/25 07:17 Chief complaint: Patient states: he started having right and left flank pains this ap3 morning at 0300, patient reports increased urination and diarrhea at this time. patient also reports dizziness and fevers. Coronavirus screen: At this time, the client does not indicate any symptoms associated with coronavirus-19. Ebola Screen: No symptoms or risks identified at this time. Initial Sepsis Screen: Does the patient meet any 2 criteria? HR > 90 bpm. Does the patient have a suspected source of infection? No. Patient's initial sepsis screen is negative. Risk Assessment: Do you want to hurt yourself or someone else? Patient reports no desire to harm self or others. Onset of symptoms was June 25, 2025 at 03:00. 07:17 Method Of Arrival: Wheelchair ap3 07:17 Acuity: MARTY 2 ap3 Triage Assessment: 07:26 General: Appears uncomfortable, Behavior is calm, cooperative, appropriate for age. ap3 Pain: Complains of pain in back and abdomen Pain currently is 5 out of 10 on a pain scale. Neuro: Level of Consciousness is awake, alert, obeys commands, Oriented to person, place, time, situation, Appropriate for age. Neuro: Reports dizziness. Cardiovascular: Patient's skin is warm and dry. Respiratory: Airway is patent Respiratory effort is even, unlabored, Respiratory pattern is regular, symmetrical. GI: Reports lower abdominal pain, upper abdominal pain, nausea. : Reports pain in right in left flank(s), urinary frequency. Historical: - Allergies: 07:19 Codeine; ap3 07:19 Latex; ap3 07:19 Vicodin; heart racing; ap3 - PMHx: 07:26 asbestosis; Cellulitis; Cerebrovascular accident; Diverticulitis; DVT (pacemaker); ap3 Gout; Hypertension; lymphedema; Myocardial infarction; Pacemaker (stroke); Pre Diabetes; Psoriatic Arthritis; stroke; - PSHx: 07:26 Appendectomy; cataracts; heart cath; knee; pacemaker; ap3 - Immunization history:: Adult Immunizations up to date. - Infectious Disease History:: Denies. - Social history:: Smoking status: Patient denies any tobacco usage or history of. Screenin:27 Abuse screen: Denies threats or abuse. Nutritional screening: No deficits noted. ap3 Tuberculosis screening: No symptoms or risk factors identified. 07:57 [facility] ED Fall Risk Assessment (Adult) History of falling in the last 3 months, ph including since admission No falls in past 3 months (0 pts) Confusion or Disorientation No (0 pts) Intoxicated or Sedated No (0 pts) Impaired Gait Yes (1 pt) Mobility Assist Device Used Yes (1 pt) Altered Elimination No (0 pt) Score/Fall Risk Level 0 - 2 = Low Risk Oriented to surroundings, Maintained a safe environment, Hourly rounding (assess needs \T\ fall precautionary measures) done, Used ambulatory aids as needed (educated on \T\ assisted with). Assessment: 07:58 General: Appears in no apparent distress. comfortable, Behavior is calm, cooperative, ph Reports chills for fever for 0-12 hours. Pain: Complains of pain in abdomen. Neuro: Level of Consciousness is awake, alert, obeys commands, Oriented to person, place, time, situation. Neuro: Reports dizziness. Cardiovascular: Capillary refill < 3 seconds in bilateral fingers Patient's skin is warm and dry. Respiratory: Airway is patent Respiratory effort is even, unlabored, Denies cough. GI: Reports lower abdominal pain, diarrhea. : Reports pain in bilateral flank(s), urinary frequency. Derm: Skin is pink, warm \T\ dry. 09:27 Reassessment: Patient appears in no apparent distress at this time. Patient and/or hb family updated on plan of care and expected duration. Pain level reassessed. Patient is alert, oriented x 3, equal unlabored respirations, skin warm/dry/pink. Vital Signs: 07:17 BP 140 / 78; Pulse 120; Resp 19; Temp 100.5; Pulse Ox 97% on R/A; Weight 185.3 kg (M); hb Height 6 ft. 1 in. ; Pain 5/10; 07:47 Weight 185.3 kg (M); hb 07:59 BP 153 / 79; Pulse 115; Resp 18; Pulse Ox 97% on R/A; ph 09:20 BP 142 / 76; Pulse 110; Resp 20; Pulse Ox 98% on R/A; ph 09:21 Temp 98.9(O); ph 10:30 BP 149 / 70; Pulse 97; Resp 18; Pulse Ox 98% on R/A; ph 11:30 BP 151 / 69; Pulse 97; Resp 18; Temp 98.1; Pulse Ox 100% on R/A; ph 07:17 Body Mass Index 53.90 (185.30 kg, 185.42 cm) hb 07:17 Pain Scale: Adult hb ED Course: 07:05 Patient arrived in ED. mr 07:11 Sunita Griffiths MD is Attending Physician. sp3 07:19 Triage completed. ap3 07:25 Mónica Grajeda, RN is Primary Nurse. ph 07:27 Arm band placed on right wrist. ap3 07:33 Inserted saline lock: 22 gauge in right wrist, using aseptic technique. Blood ts3 collected. Flushed with 10 mL NS. 07:33 Initial lab(s) drawn, by ED staff, sent to lab. ts3 07:33 EKG done, by site damage prevention technician. ts3 07:52 Chest Single View XRAY In Process Unspecified. EDMS 07:52 CT Abd/Pelvis - Without Contrast In Process Unspecified. EDMS 07:58 Patient has correct armband on for positive identification. Placed in gown. Bed in low ph position. Call light in reach. Side rails up X 1. Pulse ox on. NIBP on. Door closed. Noise minimized. 07:58 Inserted saline lock: 20 gauge in left antecubital area, using aseptic technique. Blood hb collected. Flushed with 10 mL NS. 07:59 Second set of blood cultures drawn by ks. hb 08:59 Urine collected: clean catch specimen, sent to lab. ts3 09:26 Patricio Barnes is Hospitalizing Provider. sp3 09:40 Issac Coffman MD is Hospitalizing Provider. sp3 11:54 No provider procedures requiring assistance completed. Patient admitted, IV remains in hb place. Administered Medications: 07:56 Drug: morphine IVP or IV 4 mg IVP once over 4 mins; PRN pain x 1 Route: IVP; Infused ph Over: 4 mins; Site: right hand; 08:30 Follow up: Response: No adverse reaction ph 07:57 Drug: Acetaminophen PO 1000 mg PO once Route: PO; ph 13:59 Follow up: Response: No adverse reaction ph 07:57 Drug: NS 0.9% IV (30 ml/kg) 30 ml/kg IV at bolus once; Sepsis Protocol; to be given as ph a bolus over 90 minutes Route: IV; Rate: bolus; Site: right hand; 09:30 Follow up: Response: No adverse reaction; IV Status: Completed infusion ph 07:57 Drug: Ondansetron IVP 4 mg IVP once; over 2 minutes Route: IVP; Site: right hand; ph 08:30 Follow up: Response: No adverse reaction ph 08:45 Drug: Cefepime IVPB 2 grams IVPB at 200 ml/hr once over 30 mins; (mix in NS 100 mL) ph Route: IVPB; Rate: 200 ml/hr; Infused Over: 30 mins; Site: left antecubital; 09:15 Follow up: Response: No adverse reaction; IV Status: Completed infusion ph Medication: 07:58 VIS not applicable for this client. ph Outcome: 09:26 Decision to Hospitalize by Provider. sp3 11:54 Admitted to ER Hold. Please see [facility] for further documentation. hb 11:54 Condition: stable 11:54 Instructed on the need for admit, Demonstrated understanding of instructions, 14:36 Patient left the ED. ph Signatures: Dispatcher [employer] EDMD Tri Leblanc, Reg Reg mr GrajedaMónica RN RN ph Anh Fuentes RN RN Amanda Bates RN RN ap3 Sunita Griffiths MD MD sp3 Kelsea Moscoso ts3 Corrections: (The following items were deleted from the chart) 12:23 07:17 BP 140 / 78; Pulse 120bpm; Resp 19bpm; Pulse Ox 97% RA; Temp 100.5F; 92.99 kg; hb Height 6 ft. 1 in.; BMI: 27.0; Pain 5/10, Adult; ap3
[2025-06-25 10:25] LABS: Blood Morphology Comment NOT SEEN (NOT SEEN); White Blood Cell Scan OK (OK)
--- NOTE | 2025-06-25 10:31 | P.HP ---
Certification for Inpatient Patient admitted to: Observation With expected LOS: <2 Midnights Patient will require the following post-hospital care: None Practitioner: I am a practitioner with admitting privileges, knowledge of patient current condition, hospital course, and medical plan of care. Services: Services provided to patient in accordance with Admission requirements found in Title 42 Section 412.3 of the Code of Federal Regulations Patient History Date of Service: 06/25/25 Reason for admission: UTI with sepsis History of Present Illness: Patient is a 62-year-old gentleman who came to the hospital with UTI. Allergies codeine Allergy (Verified 07/31/24 13:05) heart racing hydrocodone [From Vicodin] Allergy (Verified 07/31/24 13:05) heart racing latex Allergy (Verified 06/01/25 13:20) Hives Home Medications: Allopurinol 300 mg PO DAILY 04/08/23 Aspirin Chewable [Aspirin Chewable*] 81 mg PO DAILY 11/12/23 Potassium Chloride 20 meq PO DAILY 11/12/23 Metoprolol Succinate [Toprol Xl*] 25 mg PO DAILY 07/31/24 NIFEdipine [Nifedipine ER] 60 mg PO BID 07/31/24 Furosemide 40 mg PO BID 03/13/25 Losartan Potassium [Cozaar] 100 mg PO 1X 03/13/25 Atorvastatin Calcium 40 mg PO BEDTIME #30 tab 06/04/25 Ciprofloxacin HCl 500 mg PO BID 5 Days #10 tab 06/04/25 Clopidogrel Bisulfate [Plavix] 75 mg PO DAILY #30 tab 06/04/25 metroNIDAZOLE [Flagyl] 500 mg PO Q8H 5 Days #15 tab 06/04/25 - Past Medical/Surgical History Diabetic: No -: HTN -: Chronic lymphedema -: Morbid obesity -: History of asbestosis exposure -: History of CVA -: Gout -: Psoriatic arthritis -: Osteoarthritis -: Diverticulosis -: pre diabetic -: appendectomy -: carpaltunnel surg in L hand -: L knee "clean up" -: vein procedure in Both legs -: Cataract Sx -: pacemaker Psychosocial/ Personal History: Patient lives with son. He is a - Family History Mother Medical History: Heart disease, Hypertension Father Medical History: Cancer Notes: lymphoma and lung cancer - Social History Smoking Status: Former smoker Alcohol use: No CD- Drugs: No Caffeine use: No Review of Systems 10-point ROS is otherwise unremarkable Physical Examination - Physical Exam General: Alert, In no apparent distress, Oriented x3 HEENT: Atraumatic, PERRLA, Mucous membr. moist/pink, EOMI, Sclerae nonicteric Neck: Supple, 2+ carotid pulse no bruit, No LAD, Without JVD or thyroid abnormality Respiratory: Clear to auscultation bilaterally, Normal air movement Cardiovascular: Regular rate/rhythm, Normal S1 S2, No murmurs Gastrointestinal: Normal bowel sounds, Soft and benign, Non-distended, No tenderness Musculoskeletal: No clubbing, No tenderness, Swelling Integumentary: No rashes Neurological: Normal speech, Normal tone, Sensation intact, Normal affect, Abnormal gait, Abnormal strength Lymphatics: No axilla or inguinal lymphadenopathy Urinary: Lacey catheter - Studies Laboratory Data (last 24 hrs) 06/25/25 06/25/25 06/25/25 07:59 07:59 07:59 WBC 16.90 H Hgb 15.2 Hct 45.6 Plt Count 241 PT 13.0 INR 1.16 APTT 24.3 L Sodium 137 Potassium 3.8 BUN 18 Creatinine 0.94 Glucose 151 H Total Bilirubin 0.7 AST 12 L ALT 20 Alkaline Phosphatase 114 Assessment & Plan - Problems (Diagnosis) (1) CVA (cerebral vascular accident) Onset Date: 10/25/17 Current Visit: No Status: Acute Qualifiers: CVA mechanism: occlusion Precerebral and cerebral artery: unspecified cerebral artery Qualified Code(s): I63.50 - Cerebral infarction due to unspecified occlusion or stenosis of unspecified cerebral artery (2) Chronic diastolic heart failure Current Visit: No Status: Acute (3) Hypertensive urgency Current Visit: No Status: Acute (4) HTN (hypertension) Current Visit: No Status: Chronic Qualifiers: Hypertension type: primary hypertension Qualified Code(s): I10 - Essential (primary) hypertension (5) History of CVA (cerebrovascular accident) Current Visit: No Status: Chronic - Plan 1. UTI with sepsis; continue with IV antibiotic therapy. Continue monitoring volume status closely. Await urine cultures. 2. Acute CHF exacerbation; continue with disease modifying drugs along with diuresing. 3. History of gout arthropathy; continue with allopurinol 4. Metabolic syndrome; strict blood pressure blood sugar control 5. BPH; continue with Flomax 6. Gi and DVT prophylaxis Discharge Plan: Home Plan to discharge in: Greater than 2 days - Advance Directives Does patient have a Living Will: No Does patient have a Durable POA for Healthcare: No - Code Status/Comfort Care Code Status Assessed: Yes Code Status: Full Code Critical Care: No Time Spent Managing PTS Care (In Minutes): 50
[2025-06-25] MEDS: NA CHLORIDE 0.9% 1,000 ML IV SCH (11:00)
[2025-06-25 12:40] VITALS: BMI 53.8
[2025-06-25] MEDS: TAMSULOSIN 0.4 MG SR CAP PO ONE (14:59)
[2025-06-25] MEDS: KETOROLAC 30 MG/ML INJ IV ONE (16:35)
[2025-06-25] MEDS: PHENAZOPYRIDINE 100MG TAB PO ONE (20:11)
[2025-06-25] MEDS: TAMSULOSIN 0.4 MG SR CAP PO SCH (20:11)
[2025-06-25] MEDS: ACETAMINOPHEN 500 MG TAB PO PRN (22:03)
[2025-06-26] MEDS: PHENAZOPYRIDINE 100MG TAB PO PRN (05:16)
[2025-06-26 06:53] LABS: ALT/SGPT 15 U/L (16-61); Absolute Lymphocytes (CBC) 0.7 K/uL (0.7-4.9); Albumin 2.9 g/dL (3.4-5.0); Albumin/Globulin Ratio 0.8 (1.1-1.8); Alkaline Phosphatase 80 U/L (45-117); Anion Gap 8.5 mEq/L (5.0-15.0); BUN Blood Urea Nitrogen 26 mg/dL (7-18); Globulin 3.7 g/dL (2.3-3.5); Glucose Level 125 mg/dL (74-106); HDL Cholesterol 40 mg/dL (40-60); Hematocrit 36.8 % (39.6-49.0); Hemoglobin 12.5 g/dL (13.6-17.9); LDL Cholesterol, Calculated 67 mg/dL (<130); LDL Cholesterol,Calc NonReport 67; MCH 30.9 pg (27.0-35.0); MCHC 34.0 g/dL (32.0-36.0); MCV 90.8 fL (80-100); MPV 8.8 fL (7.6-11.3); Nucleated RBC Absolute Count 0.0 (0-0); Nucleated Red Blood Cells % 0.0 % (0-0); Potassium 3.5 mEq/L (3.5-5.1); RBC Red Blood Cell Count 4.05 M/uL (4.33-5.43); White Blood Count 15.40 thou/uL (4.3-10.9)
[2025-06-26 06:54] LABS: AST/SGOT < 10 U/L (15-37)
[2025-06-26] MEDS ORDERED: PHENAZOPYRIDINE 100MG TAB PO PRN (08:00)
[2025-06-26] MEDS ORDERED: TAMSULOSIN 0.4 MG SR CAP PO SCH (09:00)
[2025-06-26] MEDS: CEFTRIAXONE 1,000 MG in NA CHLORIDE 0.9% 50 ML IVPB SCH (09:25)
[2025-06-26] MEDS: ONDANSETRON 4 MG/2 ML VIAL IV PRN (16:42)
--- NOTE | 2025-06-27 04:28 | P.PN ---
Subjective Date of Service: 06/26/25 Chief Complaint: UTI with sepsis 1. Patient states he is feeling better with pyridium. Also on medication for bladder spasm. Overall he looks to be improved. Continue with current plan of care anticipate discharge tomorrow. Will check for home oxygen. 2. Morbid obesity; counseled regarding GLP 1 agonist. Continue with plan of care 3. Metabolic syndrome; strict blood pressure and blood sugar control; continue with G LP 1 agonist. 4. gi DVT prophylaxis Physical Examination - Vital Signs Temperature: 98.7 F Blood Pressure: 128/58 Pulse: 79 Respirations: 20 Pulse Ox (%): 94 Assessment & Plan - Problems (Diagnosis) (1) CVA (cerebral vascular accident) Onset Date: 10/25/17 Current Visit: No Status: Acute Qualifiers: CVA mechanism: occlusion Precerebral and cerebral artery: unspecified cerebral artery Qualified Code(s): I63.50 - Cerebral infarction due to unspecified occlusion or stenosis of unspecified cerebral artery (2) Chronic diastolic heart failure Current Visit: No Status: Acute (3) Hypertensive urgency Current Visit: No Status: Acute (4) HTN (hypertension) Current Visit: No Status: Chronic Qualifiers: Hypertension type: primary hypertension Qualified Code(s): I10 - Essential (primary) hypertension (5) History of CVA (cerebrovascular accident) Current Visit: No Status: Chronic - Plan 1. UTI with sepsis; continue with IV antibiotic therapy. Continue monitoring volume status closely. Await urine cultures. 2. Acute CHF exacerbation; continue with disease modifying drugs along with diuresing. 3. History of gout arthropathy; continue with allopurinol 4. Metabolic syndrome; strict blood pressure blood sugar control 5. BPH; continue with Flomax 6. Gi and DVT prophylaxis - Advance Directives Does patient have a Living Will: No Does patient have a Durable POA for Healthcare: No - Code Status/Comfort Care Code Status: Full Code
--- NOTE | 2025-06-27 09:23 | P.PN ---
Date of Service: 06/27/25 Subjective: feeling better today diffuse pain and irritation improving afebrile. Denies chills Physical Exam: Gen: Alert, NAD, Orientedx3 CV: Regular rate and rhythm, no edema Pulm: Nonlabored respirations on room air, clear bilaterally Abdomen: Soft, nontender, nondistended Neuro: Normal strength, normal affect Problem List: Sepsis secondary to UTI BPH Chronic CHF Hypertension Hx of CVA Hx of Gout on admission presents with bilateral flank pain, increased urinary frequency, diarrhea, bladder spasms. CT abd/pelvis negative for any acute findings. Blood cx: NGTD Urine cx: 2+ mixed sanchez prelim Continue empiric rocephin (06/26-); will continue IV abx for a few more days continue flomax, pyridium, ditropan Symptoms improved with pyridium confirm home meds, restart as appropriate Code: Full Dispo: Home Pending urine cx, few more days of IV abx
[2025-06-27] MEDS: HYDRALAZINE HCL 20 MG/ML VIAL IV PRN (12:13)
[2025-06-27] MEDS: METOPROLOL XL 25 MG TAB PO ONE (14:25)
[2025-06-27] MEDS: POTASSIUM 25 MEQ EFFERV TAB PO ONE (16:08)
[2025-06-27 16:09] LABS: Anion Gap 9.5 mEq/L (5.0-15.0); BUN Blood Urea Nitrogen 16.0 mg/dL (7-18); Glucose Level 104.0 mg/dL (74-106)
[2025-06-27 16:12] LABS: Potassium 4.5 mEq/L (3.5-5.1)
[2025-06-27 16:59] LABS: Absolute Lymphocytes (CBC) 0.9 K/uL (0.7-4.9); Nucleated Red Blood Cells % 0.3 % (0-0)
[2025-06-27 17:03] LABS: Hematocrit 39.3 % (39.6-49.0); Hemoglobin 13.5 g/dL (13.6-17.9); MCH 31.0 pg (27.0-35.0); MCHC 34.2 g/dL (32.0-36.0); MCV 90.6 fL (80-100); MPV 9.1 fL (7.6-11.3); Nucleated RBC Absolute Count 0.0 (0-0); RBC Red Blood Cell Count 4.34 M/uL (4.33-5.43); White Blood Count 8.80 thou/uL (4.3-10.9)
[2025-06-27 17:43] LABS: Blood Morphology Comment NOT SEEN (NOT SEEN); White Blood Cell Scan OK (OK)
[2025-06-27] MEDS: NIFEDIPINE XL 60 MG TABLET PO SCH (20:36)
--- NOTE | 2025-06-28 06:21 | P.PN ---
Date of Service: 06/28/25 This is an update from last night, on patient Harry Patel in room 209, I was notified by the nurse this morning that patient had an episode of epistaxis and coughed up small amount of bright red blood, immediately went and assessed the patient, no more nasal bleed noted, the patient also mentioned that he has history of DVT left arm x2, and the charge nurse also informed me that yesterday she had the patient, and when he was ambulating he had shortness of breath and also with minimal exertion, concerning for possible PE, went ahead and ordered CT angiogram to rule out PE. Results still pending at this time.
[2025-06-28 06:38] LABS: ALT/SGPT 20 U/L (16-61); Albumin 2.9 g/dL (3.4-5.0); Albumin/Globulin Ratio 0.7 (1.1-1.8); Alkaline Phosphatase 82 U/L (45-117); Anion Gap 8.8 mEq/L (5.0-15.0); BUN Blood Urea Nitrogen 15 mg/dL (7-18); Globulin 4.0 g/dL (2.3-3.5); Glucose Level 110 mg/dL (74-106); Potassium 3.8 mEq/L (3.5-5.1)
[2025-06-28 06:42] LABS: AST/SGOT < 10 U/L (15-37)
--- NOTE | 2025-06-28 07:16 | RAD REPORT ---
EXAM: CT CT CHEST ANGIOGRAPHY WITH IV CONTRAST TECHNIQUE: CT angiogram of the chest was performed following intravenous contrast administration, inc luding sagittal and coronal as well as maximum intensity projection reformats. One or more of the following dose reduction techniques were used: Automated exposure control, adjustment of the mA and k V according to patient size, and iterative reconstruction. Unless otherwise specified, incidental findings do not require dedicated imaging follow-up. INDICATION: Coughing up blood COMPARISON: 06/25/2025 chest radiograph. FINDINGS: LINES/TUBES: None. PULMONARY ARTERIES: Main pulmonary arteries are normal in caliber. No filling defects within the pr oximal pulmonary arteries to suggest pulmonary embolus within limits of somewhat suboptimal contrast timing. LUNGS AND AIRWAYS: The lungs and central airways are normal without focal abnormality. PLEURA: No effusion or pneumothorax. HEART AND MEDIASTINUM: The visualized thyroid gland is normal. No mediastinal, hilar, or axillary lym phadenopathy. Heart is unremarkable. No pericardial effusion. SOFT TISSUES AND BONES: No acute osseous abnormality. No significant soft tissue finding. UPPER ABDOMEN: Unremarkable. IMPRESSION: No evidence of acute central pulmonary emboli within limits of mildly suboptimal contrast timing. No other acute pulmonary process. Electronically signed by: Lazarus Murphy MD 06/28/2025 07:12 AM CDT Due to temporary technical issues with the PACS/[employer] reporting system, reports are being surinder d by the in-house radiologist without review as a courtesy to ensure prompt reporting the interpreting radiologist is fully responsible for the content of the report. Transcribed Date/Time: 06/28/2025 7:15 AM
--- NOTE | 2025-06-28 07:37 | P.PN ---
Date of Service: 06/28/25 Subjective: Episode of epistaxis this morning. It has since now resolved. No acute events overnight. Vitals remained stable. He denies fevers and chills Physical Exam: Gen: Alert, NAD, Orientedx3 CV: Regular rate and rhythm, no edema Pulm: Nonlabored respirations on room air, clear bilaterally Abdomen: Soft, nontender, nondistended Neuro: Normal strength, normal affect Problem List: Sepsis secondary to UTI BPH Chronic CHF Hypertension Hx of CVA Hx of Gout Leukocytosis result CT abd/pelvis negative for any acute findings. Blood cx: NGTD Urine cx: 2+ mixed sanchez prelim Continue empiric rocephin (06/26-); will continue IV abx for a few more days continue flomax, pyridium, ditropan Symptoms improved with pyridium confirm home meds, restart as appropriate Code: Full Dispo: Home tomorrow Pending urine cx with mixed sanchez. Stop antibiotics tomorrow and discharge
[2025-06-28 07:48] LABS: Absolute Lymphocytes (CBC) 0.8 K/uL (0.7-4.9); Hematocrit 38.1 % (39.6-49.0); Hemoglobin 12.7 g/dL (13.6-17.9); MCH 30.6 pg (27.0-35.0); MCHC 33.4 g/dL (32.0-36.0); MCV 91.7 fL (80-100); MPV 9.1 fL (7.6-11.3); Nucleated RBC Absolute Count 0.0 (0-0); Nucleated Red Blood Cells % 0.0 % (0-0); RBC Red Blood Cell Count 4.15 M/uL (4.33-5.43); White Blood Count 5.20 thou/uL (4.3-10.9)
[2025-06-28] MEDS: METOPROLOL XL 25 MG TAB PO SCH (08:40)
[2025-06-29 04:49] LABS: ALT/SGPT 15 U/L (16-61); Albumin 2.7 g/dL (3.4-5.0); Albumin/Globulin Ratio 0.7 (1.1-1.8); Alkaline Phosphatase 76 U/L (45-117); Anion Gap 8.0 mEq/L (5.0-15.0); BUN Blood Urea Nitrogen 16 mg/dL (7-18); Globulin 4.0 g/dL (2.3-3.5); Glucose Level 118 mg/dL (74-106); Potassium 4.0 mEq/L (3.5-5.1)
[2025-06-29 05:08] LABS: AST/SGOT < 10 U/L (15-37)
[2025-06-29 07:38] VITALS: O2SAT 94
[2025-06-29 08:50] VITALS: BP 149/79; TEMP 97.9
--- NOTE | 2025-06-29 10:59 | P.DS ---
Admission Date: 06/27/25 Discharge Date: 06/29/25 Disposition: ROUTINE DISCHARGE Discharge Condition: GOOD Reason for Admission: UTI with sepsis Brief History of Present Illness: Patient is a 30-year-old gentleman who came to the hospital with abdominal pain. Patient is hearing impaired and communicate with him through sign language. Patient with a history of seizure disorder. Patient has been having pain in the right lower quadrant along with fever and generalized weakness. He was recently seen by ENT for a sinus mass. Biopsies confirmed Kaposi's sarcoma. Concern for HIV. Patient will get a CD4 count and HIV viral load. Patient having abdominal pain with subjective fever. Concerning for opportunistic infection. Will get infectious disease consultation. Patient was admitted to the and started on IV antibiotics. His clinical condition improved over the course of his stay. Urine culture revealed 2+ mixed sanchez. He will be discharged with 5 more days of Omnicef. The remainder of his hospital stay has been uncomplicated and he is medically optimized for discharge. Hospital Course: Physical Exam: Gen: Alert, NAD, Orientedx3 CV: Regular rate and rhythm, no edema Pulm: Nonlabored respirations on room air, clear bilaterally Abdomen: Soft, nontender, nondistended Neuro: Normal strength, normal affect Problem List: Sepsis secondary to UTI BPH Chronic CHF Hypertension Hx of CVA Hx of Gout Leukocytosis result CT abd/pelvis negative for any acute findings. Blood cx: NGTD Urine cx: 2+ mixed sanchez prelim Continue empiric rocephin (); will continue IV abx for a few more days continue flomax, pyridium, ditropan Symptoms improved with pyridium confirm home meds, restart as appropriate Code: Full Dispo: Home tomorrow Pending urine cx with mixed sanchez. Stop antibiotics tomorrow and discharge Vital Signs/Physical Exam: Temp Pulse Resp BP Pulse Ox 97.9 F 75 17 149/79 H 97 06/29/25 08:00 06/29/25 08:00 06/29/25 08:00 06/29/25 09:03 06/29/25 08:00 Laboratory Data at Discharge: WBC 5.20 thou/uL (4.3-10.9) 06/28/25 05:30 Hgb 12.7 g/dL (13.6-17.9) L 06/28/25 05:30 Hct 38.1 % (39.6-49.0) L 06/28/25 05:30 Plt Count 212 thou/uL (152-406) 06/28/25 05:30 PT 13.0 SECONDS (10-13.0) 06/25/25 07:59 INR 1.16 06/25/25 07:59 APTT 24.3 SECONDS (27.2-37.4) L 06/25/25 07:59 Sodium 139 mEq/L (136-145) 06/29/25 04:13 Potassium 4.0 mEq/L (3.5-5.1) 06/29/25 04:13 BUN 16 mg/dL (7-18) 06/29/25 04:13 Creatinine 0.67 mg/dL (0.70-1.30) L 06/29/25 04:13 Glucose 118 mg/dL (74-106) H 06/29/25 04:13 Magnesium 1.9 mg/dL (1.6-2.4) 06/25/25 22:00 Total Bilirubin 0.3 mg/dL (0.2-1.0) 06/29/25 04:13 AST < 10 U/L (15-37) L 06/29/25 04:13 ALT 15 U/L (16-61) L 06/29/25 04:13 Alkaline Phosphatase 76 U/L (45-117) 06/29/25 04:13 Triglycerides 68 mg/dL (<150) 06/26/25 06:07 Cholesterol 121 mg/dL (<200) 06/26/25 06:07 HDL Cholesterol 40 mg/dL (40-60) 06/26/25 06:07 Cholesterol/HDL Ratio 3.03 06/26/25 06:07 Home Medications: Allopurinol 300 mg PO DAILY 04/08/23 Aspirin Chewable [Aspirin Chewable*] 81 mg PO DAILY 11/12/23 Potassium Chloride 20 meq PO DAILY 11/12/23 Metoprolol Succinate [Toprol Xl*] 25 mg PO DAILY 07/31/24 NIFEdipine [Nifedipine ER] 60 mg PO BID 07/31/24 Furosemide 40 mg PO BID 03/13/25 Losartan Potassium [Cozaar] 100 mg PO 1X 03/13/25 Atorvastatin Calcium 40 mg PO BEDTIME #30 tab 06/04/25 Clopidogrel Bisulfate [Plavix*] 75 mg PO DAILY #30 tab 06/04/25 Cefdinir [Omnicef] 300 mg PO BID 5 Days #10 cap 06/29/25 Sodium Chloride [Saline Nasal [place]] 44 ml NS DAILY 30 Days #1 bottle 06/29/25 New Medications: Cefdinir [Omnicef] 300 mg PO BID 5 Days #10 cap Sodium Chloride [Saline Nasal [place]] 44 ml NS DAILY 30 Days #1 bottle Followup: Quirino Talbot MD [Primary Care Provider] -
== END 2025-06-29 13:03 | disposition home or self-care (01) | DRG 871 ==
LOC: ER 07:03 → ERHOLD 10:24 → 2ND 13:46 → OBSVTOIN 06-27 08:30
PROVIDERS: ADMIT Hospitalist; ATTEND Family Medicine
DX: A41.9 Sepsis, unspecified organism (principal); I50.33 Acute on chronic diastolic (congestive) heart failure; N39.0 Urinary tract infection, site not specified; E87.20 Acidosis, unspecified; Z68.43 Body mass index [BMI] 50.0-59.9, adult; C46.9 Kaposi's sarcoma, unspecified; E66.01 Morbid (severe) obesity due to excess calories; I11.0 Hypertensive heart disease with heart failure; I16.0 Hypertensive urgency; M10.9 Gout, unspecified; E88.810 Metabolic syndrome; E78.5 Hyperlipidemia, unspecified; E11.9 Type 2 diabetes mellitus without complications; N40.0 Benign prostatic hyperplasia without lower urinary tract symptoms; I25.2 Old myocardial infarction; R04.0 Epistaxis; Z88.5 Allergy status to narcotic agent; Z95.0 Presence of cardiac pacemaker; Z79.82 Long term (current) use of aspirin; Z11.52 Encounter for screening for COVID-19; Z79.02 Long term (current) use of antithrombotics/antiplatelets; Z90.49 Acquired absence of other specified parts of digestive tract; Z86.73 Personal history of transient ischemic attack (TIA), and cerebral infarction without residual deficits; Z91.040 Latex allergy status; Z79.899 Other long term (current) drug therapy; Z87.891 Personal history of nicotine dependence
CPT/HCPCS: 36415; 71045; 71275; 74176; 80048; 80053; 80061; 81001; 82947; 83605; 83735; 83880; 84145; 84484; 85025; 85610; 85730; 87040; 87086; 87088; 87428; 93005; 99285; G0378; J0360; J0692; J0696; J2405; J7030; Q9967